=== PATIENT | female | born 1950 | race Caucasian/White ===

== ENCOUNTER → 2017-04-12 13:51 | Outpatient (CLI) | payer MEDICARE, BC, SELFPAY ==
[2017-04-12 16:06] LABS: Absolute Lymphocyte Count 1.06 X10^3/ul (0.83-4.51); Absolute Neutrophil Count 2.4 X10^3/uL (2.0-7.7); Basophil# 0.04 X10^3/uL; Eosinophil# 0.05 X10^3/uL; Eosinophils% 1.2 % (0-5); Hematocrit 45.3 % (37-47); Hemoglobin 14.7 g/dl (12.0-15.0); Lymphocyte # 1.06 X10^3/ul (4.0); Lymphocyte % 26.4 % (19-41); Mean Corp Hgb Conc 32.5 g/gl (32-36); Mean Corpuscular Hgb 28.2 pg (27.0-32.0); Mean Corpuscular Volume 86.8 fL (81-99); Mean Platelet Vol. 11.8 fl (6.2-12.0); Monocyte% 12.4 % (0-10); Neutrophil # 2.37 X10^3/uL (2.7-7.7); Platelet Count 231 K/mm3 (150-450); Red Blood Count 5.22 M/mm3 (4.2-5.4)
[2017-04-12 16:16] LABS: AST(SGOT) 23 U/L (15-37); Alanine Aminotransfer ALT/SGPT 22 U/L (13-56); Albumin, Serum 3.6 g/dL (3.2-5.0); Alkaline Phosphatase 63 U/L (45-117); Anion Gap 8 (5-15); BUN 14 mg/dL (7-18); BUN/Creat Ratio 13.7 RATIO (10-20); Calcium,Total 8.8 mg/dL (8.5-10.1); Chloride 106 mmol/L (98-107); Creatinine, Serum 1.02 mg/dL (0.55-1.02); EST Glomerular Filtration Rate 57 mL/min (>60); Est Glom Filt Rate - Afr Amer 69 mL/min (>60); Globulin 3.7 g/dL (2.2-4.2); Glucose 113 mg/dL (74-106); Potassium 4.2 mmol/L (3.5-5.1); Protein, Total 7.3 g/dL (6.4-8.2); Sodium Level 138 mmol/L (136-145)
[2017-04-12 16:23] LABS: POSITIVE COUNT NO; POSITIVE DIFFERENTIAL NO; POSITIVE MORPHOLOGY NO
== END ==
PROVIDERS: Family Provider Family Medicine; PCP Family Medicine; Visit Provider Internal Medicine Rheumatology
DX: M06.4 Inflammatory polyarthropathy (principal); M21.40 Flat foot [pes planus] (acquired), unspecified foot; M17.0 Bilateral primary osteoarthritis of knee; M48.061 Spinal stenosis, lumbar region without neurogenic claudication; E05.20 Thyrotoxicosis with toxic multinodular goiter without thyrotoxic crisis or storm; I12.9 Hypertensive chronic kidney disease with stage 1 through stage 4 chronic kidney disease, or unspecified chronic kidney disease; N18.9 Chronic kidney disease, unspecified; Z79.899 Other long term (current) drug therapy
CPT/HCPCS: 36415; 80053; 85025

== ENCOUNTER → 2017-07-10 10:56 | Outpatient (CLI) | payer MEDICARE, BC, SELFPAY ==
[2017-07-10 12:06] LABS: Absolute Lymphocyte Count 1.26 X10^3/ul (0.83-4.51); Absolute Neutrophil Count 2.1 X10^3/uL (2.0-7.7); Basophil# 0.07 X10^3/uL; Basophil% 1.8 % (0-1); Eosinophil# 0.07 X10^3/uL; Eosinophils% 1.8 % (0-5); Hematocrit 44.6 % (37-47); Hemoglobin 14.4 g/dl (12.0-15.0); Lymphocyte # 1.26 X10^3/ul (4.0); Lymphocyte % 32.7 % (19-41); Mean Corp Hgb Conc 32.3 g/gl (32-36); Mean Corpuscular Volume 86.8 fL (81-99); Mean Platelet Vol. 11.1 fl (6.2-12.0); Monocyte# 0.38 X10^3/uL; Monocyte% 9.9 % (0-10); Neutrophil # 2.07 X10^3/uL (2.7-7.7); Neutrophil % 53.8 % (47-70); Platelet Count 246 K/mm3 (150-450); RBC Distribution Width CV 14.3 % (11.6-14.6); RBC Distribution Width SD 45.4 fl (35.1-43.9); Red Blood Count 5.14 M/mm3 (4.2-5.4); White Blood Count 3.9 K/mm3 (4.4-11.0)
[2017-07-10 12:10] LABS: POSITIVE COUNT NO; POSITIVE DIFFERENTIAL NO; POSITIVE MORPHOLOGY NO
[2017-07-10 13:21] LABS: ALB/GLOB Ratio 0.9 RATIO (0.9-2.4); AST(SGOT) 20 U/L (15-37); Alanine Aminotransfer ALT/SGPT 18 U/L (13-56); Albumin, Serum 3.4 g/dL (3.2-5.0); Alkaline Phosphatase 63 U/L (45-117); Anion Gap 7 (5-15); BUN 18 mg/dL (7-18); BUN/Creat Ratio 14.8 RATIO (10-20); Calcium,Total 8.7 mg/dL (8.5-10.1); Chloride 108 mmol/L (98-107); Creatinine, Serum 1.22 mg/dL (0.55-1.02); EST Glomerular Filtration Rate 47 mL/min (>60); Est Glom Filt Rate - Afr Amer 56 mL/min (>60); Globulin 3.7 g/dL (2.2-4.2); Glucose 157 mg/dL (74-106); Protein, Total 7.1 g/dL (6.4-8.2); Sodium Level 141 mmol/L (136-145)
== END ==
PROVIDERS: Family Provider Family Medicine; PCP Family Medicine; Visit Provider Internal Medicine Rheumatology
DX: M06.4 Inflammatory polyarthropathy (principal); M21.40 Flat foot [pes planus] (acquired), unspecified foot; M17.0 Bilateral primary osteoarthritis of knee; N18.9 Chronic kidney disease, unspecified; M48.061 Spinal stenosis, lumbar region without neurogenic claudication; Z79.899 Other long term (current) drug therapy
CPT/HCPCS: 36415; 80053; 85025

== ENCOUNTER → 2017-07-25 13:46 | Outpatient (CLI) | payer MEDICARE, BC, SELFPAY ==
[2017-07-25 15:34] LABS: Anion Gap 5 (5-15); BUN 15 mg/dL (7-18); BUN/Creat Ratio 14.6 RATIO (10-20); Calcium,Total 8.7 mg/dL (8.5-10.1); Chloride 106 mmol/L (98-107); Creatinine, Serum 1.03 mg/dL (0.55-1.02); EST Glomerular Filtration Rate 57 mL/min (>60); Est Glom Filt Rate - Afr Amer 68 mL/min (>60); Glucose 101 mg/dL (74-106); Potassium 4.3 mmol/L (3.5-5.1); Sodium Level 138 mmol/L (136-145)
[2017-07-25 15:47] LABS: Microalbumin,Random Urine 21.5 mg/L (NO RANGE EST.)
== END ==
PROVIDERS: Family Provider Family Medicine; PCP Family Medicine; Visit Provider Internal Medicine Nephrology
DX: N18.3 Chronic kidney disease, stage 3 (moderate) (principal)
CPT/HCPCS: 36415; 80048; 82043; 82570

== ENCOUNTER → 2017-09-23 14:12 | Outpatient (CLI) | payer MEDICARE, SELFPAY ==
[2017-09-23 15:17] LABS: Absolute Lymphocyte Count 1.24 X10^3/ul (0.83-4.51); Absolute Neutrophil Count 2.3 X10^3/uL (2.0-7.7); Basophil# 0.05 X10^3/uL; Basophil% 1.2 % (0-1); Eosinophil# 0.05 X10^3/uL; Eosinophils% 1.2 % (0-5); Hematocrit 43.9 % (37-47); Hemoglobin 14.3 g/dl (12.0-15.0); Lymphocyte # 1.24 X10^3/ul (4.0); Lymphocyte % 29.7 % (19-41); Mean Corp Hgb Conc 32.6 g/gl (32-36); Mean Corpuscular Hgb 28.4 pg (27.0-32.0); Mean Corpuscular Volume 87.3 fL (81-99); Mean Platelet Vol. 11.4 fl (6.2-12.0); Monocyte# 0.54 X10^3/uL; Monocyte% 12.9 % (0-10); Neutrophil # 2.29 X10^3/uL (2.7-7.7); Neutrophil % 54.8 % (47-70); POSITIVE COUNT NO; POSITIVE DIFFERENTIAL NO; POSITIVE MORPHOLOGY NO; Platelet Count 241 K/mm3 (150-450); RBC Distribution Width CV 14.4 % (11.6-14.6); RBC Distribution Width SD 45.5 fl (35.1-43.9); Red Blood Count 5.03 M/mm3 (4.2-5.4); White Blood Count 4.2 K/mm3 (4.4-11.0)
[2017-09-23 15:30] LABS: ALB/GLOB Ratio 0.9 RATIO (0.9-2.4); AST(SGOT) 20 U/L (15-37); Alanine Aminotransfer ALT/SGPT 23 U/L (13-56); Albumin, Serum 3.5 g/dL (3.2-5.0); Alkaline Phosphatase 63 U/L (45-117); Anion Gap 9 (5-15); BUN 15 mg/dL (7-18); BUN/Creat Ratio 14.2 RATIO (10-20); Calcium,Total 8.9 mg/dL (8.5-10.1); Chloride 108 mmol/L (98-107); Creatinine, Serum 1.06 mg/dL (0.55-1.02); EST Glomerular Filtration Rate 55 mL/min (>60); Est Glom Filt Rate - Afr Amer 66 mL/min (>60); Globulin 3.8 g/dL (2.2-4.2); Glucose 110 mg/dL (74-106); Potassium 4.3 mmol/L (3.5-5.1); Protein, Total 7.3 g/dL (6.4-8.2); Sodium Level 142 mmol/L (136-145)
== END ==
PROVIDERS: Family Provider Family Medicine; PCP Family Medicine; Visit Provider Internal Medicine Rheumatology
DX: M06.4 Inflammatory polyarthropathy (principal); M21.40 Flat foot [pes planus] (acquired), unspecified foot; M17.0 Bilateral primary osteoarthritis of knee; Z79.899 Other long term (current) drug therapy
CPT/HCPCS: 36415; 80053; 85025

== ENCOUNTER → 2017-12-27 14:59 | Outpatient (CLI) | payer MEDICARE, BC, SELFPAY ==
[2017-12-27 17:48] LABS: ALB/GLOB Ratio 0.9 RATIO (0.9-2.4); AST(SGOT) 22 U/L (15-37); Alanine Aminotransfer ALT/SGPT 24 U/L (13-56); Albumin, Serum 3.6 g/dL (3.2-5.0); Alkaline Phosphatase 67 U/L (45-117); Anion Gap 10 (5-15); BUN 16 mg/dL (7-18); BUN/Creat Ratio 14.4 RATIO (10-20); Calcium,Total 8.6 mg/dL (8.5-10.1); Chloride 106 mmol/L (98-107); Creatinine, Serum 1.11 mg/dL (0.55-1.02); EST Glomerular Filtration Rate 52 mL/min (>60); Est Glom Filt Rate - Afr Amer 63 mL/min (>60); Glucose 103 mg/dL (74-106); Potassium 4.2 mmol/L (3.5-5.1); Protein, Total 7.6 g/dL (6.4-8.2); Sodium Level 140 mmol/L (136-145)
[2017-12-27 18:19] LABS: Absolute Lymphocyte Count 1.37 X10^3/ul (0.83-4.51); Absolute Neutrophil Count 2.5 X10^3/uL (2.0-7.7); Basophil# 0.02 X10^3/uL; Basophil% 0.4 % (0-1); Eosinophil# 0.06 X10^3/uL; Eosinophils% 1.3 % (0-5); Hematocrit 47.2 % (37-47); Hemoglobin 14.7 g/dl (12.0-15.0); Lymphocyte # 1.37 X10^3/ul (4.0); Lymphocyte % 30.7 % (19-41); Mean Corp Hgb Conc 31.1 g/gl (32-36); Mean Corpuscular Hgb 27.9 pg (27.0-32.0); Mean Corpuscular Volume 89.7 fL (81-99); Monocyte# 0.49 X10^3/uL; Neutrophil # 2.52 X10^3/uL (2.7-7.7); Neutrophil % 56.6 % (47-70); Platelet Count 274 K/mm3 (150-450); RBC Distribution Width SD 45.5 fl (35.1-43.9); Red Blood Count 5.26 M/mm3 (4.2-5.4); White Blood Count 4.5 K/mm3 (4.4-11.0)
[2017-12-27 18:33] LABS: POSITIVE COUNT NO; POSITIVE DIFFERENTIAL NO; POSITIVE MORPHOLOGY NO
== END ==
PROVIDERS: Family Provider Family Medicine; PCP Family Medicine; Referring Provider Internal Medicine Rheumatology; Visit Provider Internal Medicine Rheumatology
DX: M06.4 Inflammatory polyarthropathy (principal); M21.40 Flat foot [pes planus] (acquired), unspecified foot; M17.0 Bilateral primary osteoarthritis of knee; N18.9 Chronic kidney disease, unspecified; Z79.899 Other long term (current) drug therapy
CPT/HCPCS: 36415; 80053; 85025

== ENCOUNTER → 2018-02-07 12:55 | Outpatient (CLI) | payer MEDICARE, BC, SELFPAY ==
[2018-02-07 14:05] LABS: Absolute Neutrophil Count 2.2 X10^3/uL (2.0-7.7); Basophil# 0.06 X10^3/uL; Basophil% 1.5 % (0-1); Eosinophil# 0.12 X10^3/uL; Hematocrit 45.1 % (37-47); Hemoglobin 14.3 g/dl (12.0-15.0); Lymphocyte % 29.9 % (19-41); Mean Corp Hgb Conc 31.7 g/gl (32-36); Mean Corpuscular Hgb 27.6 pg (27.0-32.0); Mean Corpuscular Volume 86.9 fL (81-99); Mean Platelet Vol. 10.9 fl (6.2-12.0); Monocyte# 0.38 X10^3/uL; Monocyte% 9.5 % (0-10); Neutrophil # 2.24 X10^3/uL (2.7-7.7); Neutrophil % 55.9 % (47-70); Platelet Count 242 K/mm3 (150-450); RBC Distribution Width CV 13.9 % (11.6-14.6); RBC Distribution Width SD 44.5 fl (35.1-43.9); Red Blood Count 5.19 M/mm3 (4.2-5.4)
[2018-02-07 14:08] LABS: POSITIVE COUNT NO; POSITIVE DIFFERENTIAL NO; POSITIVE MORPHOLOGY NO
[2018-02-07 14:21] LABS: Albumin, Serum 3.4 g/dL (3.2-5.0); BUN 17 mg/dL (7-18); BUN/Creat Ratio 16.5 RATIO (10-20); Calcium,Total 8.3 mg/dL (8.5-10.1); Chloride 108 mmol/L (98-107); Creatinine, Serum 1.03 mg/dL (0.55-1.02); EST Glomerular Filtration Rate 57 mL/min (>60); Est Glom Filt Rate - Afr Amer 68 mL/min (>60); Glucose 154 mg/dL (74-106); Phosphorus 2.5 mg/dL (2.5-4.9); Potassium 3.9 mmol/L (3.5-5.1); Sodium Level 139 mmol/L (136-145)
[2018-02-07 14:31] LABS: Vitamin D,25 Hydroxy 55.4 ng/mL (29.95-100.01)
[2018-02-07 14:41] LABS: Protein, Urine (Random) 68.8 mg/dL (<11.9); Protein:Creat Ratio 313 mg/g CRE (0-200)
[2018-02-07 15:04] LABS: PTHIN 269.3 pg/mL (18.4-80.1)
== END ==
PROVIDERS: Family Provider Family Medicine; PCP Family Medicine; Referring Provider Internal Medicine Nephrology; Visit Provider Internal Medicine Nephrology
DX: N18.3 Chronic kidney disease, stage 3 (moderate) (principal); D63.1 Anemia in chronic kidney disease; E55.9 Vitamin D deficiency, unspecified
CPT/HCPCS: 36415; 80069; 82306; 82570; 83970; 84156; 85025

== ENCOUNTER → 2018-03-25 12:11 | Outpatient (CLI) | payer MEDICARE, BC, SELFPAY ==
[2018-03-25 13:48] LABS: Absolute Lymphocyte Count 1.07 X10^3/ul (0.83-4.51); Absolute Neutrophil Count 2.8 X10^3/uL (2.0-7.7); Basophil# 0.02 X10^3/uL; Basophil% 0.5 % (0-1); Eosinophils% 2.3 % (0-5); Hematocrit 44.9 % (37-47); Lymphocyte # 1.07 X10^3/ul (4.0); Lymphocyte % 24.8 % (19-41); Mean Corp Hgb Conc 31.2 g/gl (32-36); Mean Corpuscular Hgb 27.5 pg (27.0-32.0); Mean Corpuscular Volume 88.2 fL (81-99); Monocyte# 0.35 X10^3/uL; Monocyte% 8.1 % (0-10); Neutrophil # 2.76 X10^3/uL (2.7-7.7); Neutrophil % 64.1 % (47-70); POSITIVE COUNT NO; POSITIVE DIFFERENTIAL NO; POSITIVE MORPHOLOGY NO; Platelet Count 210 K/mm3 (150-450); RBC Distribution Width CV 14.2 % (11.6-14.6); RBC Distribution Width SD 46.1 fl (35.1-43.9); Red Blood Count 5.09 M/mm3 (4.2-5.4); White Blood Count 4.3 K/mm3 (4.4-11.0)
[2018-03-25 14:16] LABS: ALB/GLOB Ratio 0.9 RATIO (0.9-2.4); AST(SGOT) 21 U/L (15-37); Alanine Aminotransfer ALT/SGPT 20 U/L (13-56); Albumin, Serum 3.3 g/dL (3.2-5.0); Alkaline Phosphatase 60 U/L (45-117); Anion Gap 6 (5-15); BUN 15 mg/dL (7-18); BUN/Creat Ratio 14.9 RATIO (10-20); Calcium,Total 8.2 mg/dL (8.5-10.1); Chloride 111 mmol/L (98-107); Creatinine, Serum 1.01 mg/dL (0.55-1.02); EST Glomerular Filtration Rate 58 mL/min (>60); Est Glom Filt Rate - Afr Amer 70 mL/min (>60); Globulin 3.7 g/dL (2.2-4.2); Glucose 140 mg/dL (74-106); Potassium 4.2 mmol/L (3.5-5.1); Sodium Level 141 mmol/L (136-145); T4 Free Direct 1.28 ng/dL (0.76-1.46); Thyroid Stim Hormone (TSH) 0.69 uIU/mL (0.358-3.74)
== END ==
PROVIDERS: Family Provider Family Medicine; PCP Family Medicine; Referring Provider Internal Medicine Rheumatology; Visit Provider Internal Medicine Rheumatology
DX: E03.9 Hypothyroidism, unspecified (principal); M06.4 Inflammatory polyarthropathy; M21.40 Flat foot [pes planus] (acquired), unspecified foot; M17.0 Bilateral primary osteoarthritis of knee; E05.20 Thyrotoxicosis with toxic multinodular goiter without thyrotoxic crisis or storm; N25.81 Secondary hyperparathyroidism of renal origin; E11.9 Type 2 diabetes mellitus without complications; I12.9 Hypertensive chronic kidney disease with stage 1 through stage 4 chronic kidney disease, or unspecified chronic kidney disease; N18.9 Chronic kidney disease, unspecified; Z79.899 Other long term (current) drug therapy
CPT/HCPCS: 36415; 80053; 84439; 84443; 85025

== ENCOUNTER → 2018-06-20 13:15 | Outpatient (CLI) | payer MEDICARE, BC, SELFPAY ==
[2018-06-20 15:41] LABS: Absolute Lymphocyte Count 1.09 X10^3/ul (0.83-4.51); Absolute Neutrophil Count 1.8 X10^3/uL (2.0-7.7); Basophil# 0.04 X10^3/uL; Basophil% 1.2 % (0-1); Eosinophil# 0.06 X10^3/uL; Eosinophils% 1.8 % (0-5); Hematocrit 44.2 % (37-47); Hemoglobin 14.1 g/dl (12.0-15.0); Lymphocyte # 1.09 X10^3/ul (4.0); Lymphocyte % 32.1 % (19-41); Mean Corp Hgb Conc 31.9 g/gl (32-36); Mean Corpuscular Hgb 27.5 pg (27.0-32.0); Mean Corpuscular Volume 86.3 fL (81-99); Mean Platelet Vol. 11.1 fl (6.2-12.0); Monocyte# 0.45 X10^3/uL; Monocyte% 13.2 % (0-10); Neutrophil # 1.75 X10^3/uL (2.7-7.7); Neutrophil % 51.4 % (47-70); Platelet Count 236 K/mm3 (150-450); RBC Distribution Width CV 14.1 % (11.6-14.6); RBC Distribution Width SD 44.3 fl (35.1-43.9); Red Blood Count 5.12 M/mm3 (4.2-5.4); White Blood Count 3.4 K/mm3 (4.4-11.0)
[2018-06-20 15:44] LABS: POSITIVE COUNT NO; POSITIVE DIFFERENTIAL NO; POSITIVE MORPHOLOGY NO
[2018-06-20 15:49] LABS: ALB/GLOB Ratio 0.9 RATIO (0.9-2.4); AST(SGOT) 23 U/L (15-37); Alanine Aminotransfer ALT/SGPT 20 U/L (13-56); Albumin, Serum 3.4 g/dL (3.2-5.0); Alkaline Phosphatase 65 U/L (45-117); Anion Gap 1 (5-15); BUN 14 mg/dL (7-18); BUN/Creat Ratio 11.9 RATIO (10-20); Calcium,Total 8.3 mg/dL (8.5-10.1); Chloride 110 mmol/L (98-107); Creatinine, Serum 1.18 mg/dL (0.55-1.02); EST Glomerular Filtration Rate 48 mL/min (>60); Est Glom Filt Rate - Afr Amer 58 mL/min (>60); Globulin 3.6 g/dL (2.2-4.2); Glucose 146 mg/dL (74-106); Potassium 4.3 mmol/L (3.5-5.1); Sodium Level 140 mmol/L (136-145)
== END ==
PROVIDERS: Family Provider Family Medicine; PCP Family Medicine; Referring Provider Internal Medicine Rheumatology; Visit Provider Internal Medicine Rheumatology
DX: M06.4 Inflammatory polyarthropathy (principal); M21.40 Flat foot [pes planus] (acquired), unspecified foot; M17.0 Bilateral primary osteoarthritis of knee; M18.9 Osteoarthritis of first carpometacarpal joint, unspecified; M48.061 Spinal stenosis, lumbar region without neurogenic claudication; Z79.899 Other long term (current) drug therapy
CPT/HCPCS: 36415; 80053; 85025

== ENCOUNTER → 2018-08-29 | Outpatient (CLI) | payer MEDICARE, BC, SELFPAY ==
[2018-08-29 15:36] LABS: Absolute Lymphocyte Count 1.05 X10^3/uL (0.83-4.51); Absolute Neutrophil Count 2.1 X10^3/uL (2.0-7.7); Basophil# 0.03 X10^3/uL; Basophil% 0.8 % (0-1); Eosinophil# 0.06 X10^3/uL; Eosinophils% 1.6 % (0-5); Hematocrit 45.4 % (37-47); Hemoglobin 14.5 g/dL (12.0-15.0); Lymphocyte # 1.05 X10^3/ul (4.0); Lymphocyte % 28.2 % (19-41); Mean Corp Hgb Conc 31.9 g/dL (32-36); Mean Corpuscular Hgb 27.7 pg (27.0-32.0); Mean Corpuscular Volume 86.6 fL (81-99); Mean Platelet Vol. 10.8 fl (6.2-12.0); Monocyte# 0.46 X10^3/uL; Monocyte% 12.4 % (0-10); NRBC Flagged by Analyzer 0 % (0-5); Neutrophil # 2.11 X10^3/uL (2.7-7.7); Neutrophil % 56.7 % (47-70); Platelet Count 244 K/mm3 (150-450); RBC Distribution Width CV 13.4 % (11.6-14.6); RBC Distribution Width SD 42.6 fl (35.1-43.9); Red Blood Count 5.24 M/mm3 (4.2-5.4); White Blood Count 3.7 K/mm3 (4.4-11.0)
[2018-08-29 15:53] LABS: ALB/GLOB Ratio 0.9 RATIO (0.9-2.4); AST(SGOT) 17 U/L (15-37); Alanine Aminotransfer ALT/SGPT 20 U/L (13-56); Albumin, Serum 3.4 g/dL (3.2-5.0); Alkaline Phosphatase 59 U/L (45-117); Anion Gap 6 (5-15); BUN 12 mg/dL (7-18); BUN/Creat Ratio 12.1 RATIO (10-20); Calcium,Total 8.7 mg/dL (8.5-10.1); Chloride 110 mmol/L (98-107); Creatinine, Serum 0.99 mg/dL (0.55-1.02); EST Glomerular Filtration Rate 59 mL/min (>60); Est Glom Filt Rate - Afr Amer 72 mL/min (>60); Globulin 3.7 g/dL (2.2-4.2); Glucose 127 mg/dL (74-106); Phosphorus 2.4 mg/dL (2.5-4.9); Potassium 3.9 mmol/L (3.5-5.1); Protein, Total 7.1 g/dL (6.4-8.2); Sodium Level 140 mmol/L (136-145)
[2018-08-29 15:56] LABS: Vitamin D,25 Hydroxy 49.1 ng/mL (29.95-100.01)
[2018-08-29 16:02] LABS: PTHIN 178.7 pg/mL (18.4-80.1)
[2018-08-29 16:03] LABS: Protein, Urine (Random) 99.8 mg/dL (<11.9); Protein:Creat Ratio 254 mg/g CRE (0-200)
== END | disposition home or self-care (01) ==
LOC: MTLAB 13:46
PROVIDERS: Family Provider Family Medicine; PCP Family Medicine; Referring Provider Internal Medicine Rheumatology; Visit Provider Internal Medicine Rheumatology
DX: M06.4 Inflammatory polyarthropathy (principal); M21.40 Flat foot [pes planus] (acquired), unspecified foot; M17.0 Bilateral primary osteoarthritis of knee; M48.062 Spinal stenosis, lumbar region with neurogenic claudication; N18.3 Chronic kidney disease, stage 3 (moderate); D63.1 Anemia in chronic kidney disease; E55.9 Vitamin D deficiency, unspecified; Z79.899 Other long term (current) drug therapy
CPT/HCPCS: 36415; 80053; 82306; 82570; 83970; 84100; 84156; 85025

== ENCOUNTER → 2018-09-29 | Outpatient (CLI) | payer MEDICARE, BC, SELFPAY ==
[2018-09-29 15:41] LABS: T4 Free Direct 1.51 ng/dL (0.76-1.46); Thyroid Stim Hormone (TSH) 0.89 uIU/mL (0.358-3.74)
[2018-10-02 14:09] LABS: Thyroid Stim Immunoglob <0.10 IU/L (0.00-0.55)
== END | disposition home or self-care (01) ==
LOC: LAB.FUTURE 10:25
PROVIDERS: Family Provider Family Medicine; PCP Family Medicine; Visit Provider Family Medicine
DX: E05.90 Thyrotoxicosis, unspecified without thyrotoxic crisis or storm (principal); H05.20 Unspecified exophthalmos
CPT/HCPCS: 36415; 84439; 84443; 84445

== ENCOUNTER → 2018-12-02 | Outpatient (CLI) | payer MEDICARE, BC, SELFPAY ==
[2018-12-02 13:51] LABS: Absolute Lymphocyte Count 1.39 X10^3/uL (0.83-4.51); Absolute Neutrophil Count 2.5 X10^3/uL (2.0-7.7); Basophil# 0.05 X10^3/uL; Basophil% 1.1 % (0-1); Eosinophil# 0.07 X10^3/uL; Eosinophils% 1.5 % (0-5); Hematocrit 45.4 % (37-47); Hemoglobin 14.2 g/dL (12.0-15.0); Lymphocyte # 1.39 X10^3/ul (4.0); Lymphocyte % 30.2 % (19-41); Mean Corp Hgb Conc 31.3 g/dL (32-36); Mean Corpuscular Volume 89.4 fL (81-99); Mean Platelet Vol. 10.8 fl (6.2-12.0); Monocyte# 0.58 X10^3/uL; Monocyte% 12.6 % (0-10); NRBC Flagged by Analyzer 0 % (0-5); Neutrophil % 54.2 % (47-70); Platelet Count 266 K/mm3 (150-450); RBC Distribution Width CV 13.4 % (11.6-14.6); RBC Distribution Width SD 44.2 fl (35.1-43.9); Red Blood Count 5.08 M/mm3 (4.2-5.4); White Blood Count 4.6 K/mm3 (4.4-11.0)
[2018-12-02 13:58] LABS: ALB/GLOB Ratio 0.9 RATIO (0.9-2.4); AST(SGOT) 23 U/L (15-37); Alanine Aminotransfer ALT/SGPT 22 U/L (13-56); Albumin, Serum 3.3 g/dL (3.2-5.0); Alkaline Phosphatase 63 U/L (45-117); Anion Gap 6 (5-15); BUN 16 mg/dL (7-18); BUN/Creat Ratio 14.3 RATIO (10-20); Calcium,Total 8.3 mg/dL (8.5-10.1); Chloride 108 mmol/L (98-107); Creatinine, Serum 1.12 mg/dL (0.55-1.02); EST Glomerular Filtration Rate 51 mL/min (>60); Est Glom Filt Rate - Afr Amer 62 mL/min (>60); Globulin 3.7 g/dL (2.2-4.2); Glucose 130 mg/dL (74-106); Potassium 4.1 mmol/L (3.5-5.1); Sodium Level 140 mmol/L (136-145)
== END | disposition home or self-care (01) ==
LOC: MTLAB 11:56
PROVIDERS: Family Provider Family Medicine; PCP Family Medicine; Referring Provider Internal Medicine Rheumatology; Visit Provider Internal Medicine Rheumatology
DX: M06.4 Inflammatory polyarthropathy (principal); M21.40 Flat foot [pes planus] (acquired), unspecified foot; M17.0 Bilateral primary osteoarthritis of knee; N18.9 Chronic kidney disease, unspecified; Z79.899 Other long term (current) drug therapy
CPT/HCPCS: 36415; 80053; 85025

== ENCOUNTER → 2019-03-17 | Outpatient (CLI) | payer MEDICARE, BC, SELFPAY ==
[2019-03-17 15:22] LABS: Absolute Lymphocyte Count 1.05 X10^3/uL (0.83-4.51); Absolute Neutrophil Count 2.7 X10^3/uL (2.0-7.7); Basophil# 0.05 X10^3/uL; Basophil% 1.2 % (0-1); Eosinophil# 0.07 X10^3/uL; Eosinophils% 1.6 % (0-5); Hematocrit 47.1 % (37-47); Hemoglobin 14.7 g/dL (12.0-15.0); Lymphocyte # 1.05 X10^3/ul (4.0); Lymphocyte % 24.2 % (19-41); Mean Corp Hgb Conc 31.2 g/dL (32-36); Mean Corpuscular Hgb 27.6 pg (27.0-32.0); Mean Corpuscular Volume 88.5 fL (81-99); Monocyte% 11.5 % (0-10); NRBC Flagged by Analyzer 0 % (0-5); Neutrophil # 2.66 X10^3/uL (2.7-7.7); Neutrophil % 61.3 % (47-70); Platelet Count 253 K/mm3 (150-450); RBC Distribution Width CV 13.4 % (11.6-14.6); RBC Distribution Width SD 43.6 fl (35.1-43.9); Red Blood Count 5.32 M/mm3 (4.2-5.4); White Blood Count 4.3 K/mm3 (4.4-11.0)
[2019-03-17 15:49] LABS: ALB/GLOB Ratio 0.9 RATIO (0.9-2.4); AST(SGOT) 19 U/L (15-37); Alanine Aminotransfer ALT/SGPT 20 U/L (13-56); Albumin, Serum 3.4 g/dL (3.2-5.0); Alkaline Phosphatase 60 U/L (45-117); Anion Gap 4 (5-15); BUN 15 mg/dL (7-18); BUN/Creat Ratio 12.9 RATIO (10-20); Calcium,Total 9.1 mg/dL (8.5-10.1); Chloride 109 mmol/L (98-107); Creatinine, Serum 1.16 mg/dL (0.55-1.02); EST Glomerular Filtration Rate 49 mL/min (>60); Est Glom Filt Rate - Afr Amer 59 mL/min (>60); Globulin 3.7 g/dL (2.2-4.2); Glucose 120 mg/dL (74-106); Potassium 4.5 mmol/L (3.5-5.1); Protein, Total 7.1 g/dL (6.4-8.2); Sodium Level 140 mmol/L (136-145); T4 Free Direct 1.34 ng/dL (0.76-1.46); Thyroid Stim Hormone (TSH) 1.16 uIU/mL (0.358-3.74)
== END | disposition home or self-care (01) ==
LOC: MTLAB 13:30
PROVIDERS: PCP Family Medicine; Referring Provider Internal Medicine Rheumatology; Visit Provider Internal Medicine Rheumatology
DX: M06.4 Inflammatory polyarthropathy (principal); M21.40 Flat foot [pes planus] (acquired), unspecified foot; M17.0 Bilateral primary osteoarthritis of knee; I12.9 Hypertensive chronic kidney disease with stage 1 through stage 4 chronic kidney disease, or unspecified chronic kidney disease; N18.9 Chronic kidney disease, unspecified; E05.20 Thyrotoxicosis with toxic multinodular goiter without thyrotoxic crisis or storm; N25.81 Secondary hyperparathyroidism of renal origin; E11.22 Type 2 diabetes mellitus with diabetic chronic kidney disease; M48.061 Spinal stenosis, lumbar region without neurogenic claudication; Z79.899 Other long term (current) drug therapy
CPT/HCPCS: 36415; 80053; 84439; 84443; 85025

== ENCOUNTER → 2019-05-28 | Outpatient (CLI) | payer MEDICARE, BC, SELFPAY ==
[2019-05-28 12:21] LABS: Absolute Lymphocyte Count 1.15 X10^3/uL (0.83-4.51); Absolute Neutrophil Count 3.4 X10^3/uL (2.0-7.7); Basophil# 0.04 X10^3/uL; Basophil% 0.8 % (0-1); Eosinophils% 1.9 % (0-5); Hematocrit 45.2 % (37-47); Hemoglobin 14.1 g/dL (12.0-15.0); Lymphocyte # 1.15 X10^3/ul (4.0); Mean Corp Hgb Conc 31.2 g/dL (32-36); Mean Corpuscular Hgb 27.5 pg (27.0-32.0); Mean Corpuscular Volume 88.3 fL (81-99); Mean Platelet Vol. 10.8 fl (6.2-12.0); Monocyte# 0.55 X10^3/uL; Monocyte% 10.5 % (0-10); NRBC Flagged by Analyzer 0 % (0-5); Neutrophil # 3.36 X10^3/uL (2.7-7.7); Neutrophil % 64.4 % (47-70); Platelet Count 250 K/mm3 (150-450); RBC Distribution Width CV 13.7 % (11.6-14.6); RBC Distribution Width SD 44.4 fl (35.1-43.9); Red Blood Count 5.12 M/mm3 (4.2-5.4); White Blood Count 5.2 K/mm3 (4.4-11.0)
[2019-05-28 12:33] LABS: PTHIN 258.4 pg/mL (18.4-80.1)
[2019-05-28 12:35] LABS: ALB/GLOB Ratio 0.9 RATIO (0.9-2.4); AST(SGOT) 21 U/L (15-37); Alanine Aminotransfer ALT/SGPT 19 U/L (13-56); Albumin, Serum 3.4 g/dL (3.2-5.0); Alkaline Phosphatase 63 U/L (45-117); Anion Gap 8 (5-15); BUN 16 mg/dL (7-18); BUN/Creat Ratio 15.5 RATIO (10-20); Calcium,Total 8.6 mg/dL (8.5-10.1); Chloride 108 mmol/L (98-107); Creatinine, Serum 1.03 mg/dL (0.55-1.02); EST Glomerular Filtration Rate 56 mL/min (>60); Est Glom Filt Rate - Afr Amer 68 mL/min (>60); Globulin 3.8 g/dL (2.2-4.2); Glucose 112 mg/dL (74-106); Phosphorus 2.7 mg/dL (2.5-4.9); Potassium 4.2 mmol/L (3.5-5.1); Protein, Total 7.2 g/dL (6.4-8.2); Sodium Level 142 mmol/L (136-145)
[2019-05-28 12:36] LABS: Vitamin D,25 Hydroxy 59.5 ng/mL
[2019-05-28 12:44] LABS: Protein, Urine (Random) 108.6 mg/dL (<11.9); Protein:Creat Ratio 343 mg/g CRE (0-200)
== END | disposition home or self-care (01) ==
PROVIDERS: PCP Family Medicine; Referring Provider Internal Medicine Nephrology; Visit Provider Internal Medicine Nephrology
DX: E55.9 Vitamin D deficiency, unspecified (principal); N25.81 Secondary hyperparathyroidism of renal origin; M06.4 Inflammatory polyarthropathy; M21.40 Flat foot [pes planus] (acquired), unspecified foot; M17.0 Bilateral primary osteoarthritis of knee; N18.9 Chronic kidney disease, unspecified; M48.061 Spinal stenosis, lumbar region without neurogenic claudication; E05.20 Thyrotoxicosis with toxic multinodular goiter without thyrotoxic crisis or storm; I12.9 Hypertensive chronic kidney disease with stage 1 through stage 4 chronic kidney disease, or unspecified chronic kidney disease; E11.22 Type 2 diabetes mellitus with diabetic chronic kidney disease; N18.3 Chronic kidney disease, stage 3 (moderate); D63.1 Anemia in chronic kidney disease; Z79.899 Other long term (current) drug therapy
CPT/HCPCS: 36415; 80053; 82306; 82570; 83970; 84100; 84156; 85025

== ENCOUNTER → 2019-08-11 | Outpatient (CLI) | payer MEDICARE, BC, SELFPAY ==
--- NOTE | 2019-08-11 13:14 | BD_ITS ---
STUDY: DUAL ENERGY X-RAY ABSORPTIOMETRY / DXA REASON FOR EXAM: Female, 69 years old. 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 COMPARISON: None. FINDINGS: Lumbar Spine (L1-L4): g/cm2 (1.476) / T-score (2.3) / Z-score (4.0) Findings are suggestive of normal bone density with a low fracture risk. Left Femur Total: g/cm2 (0.903) / T-score (-0.8) / Z-score (0.7) Left Femoral Neck: g/cm2 (0.809) / T-score (-1.6) / Z-score (0.1) Right Femur Total: g/cm2 (0.823) / T-score (-1.5) / Z-score (0.0) Right Femoral Neck: g/cm2 (0.768) / T-score (-1.9) / Z-score (-0.2) BD/Dexa Bone Density Study IMPRESSION: The patient is considered osteopenic as outlined below according to World Fritz Organization (WHO) criteria with a moderate fracture risk. Reference Information: The T-score is the number of standard deviations above or below the standard which is normal for young adults at their peak bone mineral density. The World Health Organization (WHO) interprets the T-scores as follows: Above -1 Normal bone density Between -1 and -2.5 Osteopenia Equal to / or below -2.5 Osteoporosis As a practical clinical guideline, osteopenia may be graded as follows: Mild -1 through -1.5 Moderate -1.6 through -2.0 Severe -2.1 through -2.4 The Z-score is the number of standard deviations above or below age-matched controls. A Z-score of less than -1.5 would be considered abnormal. References: 1. NIH Osteoporosis and Related Bone Diseases http://www.osteo.org 2. International Society for Clinical Densitometry http://www.iscd.org 3. National Osteoporosis Foundation http://www.nof.org Electronically Signed: Brandon Sosa, at 7:34 EDT , Service support ,
== END | disposition home or self-care (01) ==
PROVIDERS: PCP Family Medicine; Referring Provider Family Medicine; Visit Provider Family Medicine
DX: M81.0 Age-related osteoporosis without current pathological fracture (principal); M06.9 Rheumatoid arthritis, unspecified; N25.81 Secondary hyperparathyroidism of renal origin; E03.9 Hypothyroidism, unspecified; Z79.899 Other long term (current) drug therapy
CPT/HCPCS: 77080

== ENCOUNTER → 2019-08-28 | Outpatient (CLI) | payer MEDICARE, BC, SELFPAY ==
[2019-08-28 14:58] LABS: Absolute Lymphocyte Count 1.23 X10^3/uL (0.83-4.51); Absolute Neutrophil Count 2.2 X10^3/uL (2.0-7.7); Basophil# 0.03 X10^3/uL; Basophil% 0.8 % (0-1); Eosinophil# 0.07 X10^3/uL; Eosinophils% 1.8 % (0-5); Hematocrit 43.6 % (37-47); Hemoglobin 13.8 g/dL (12.0-15.0); Lymphocyte # 1.23 X10^3/ul (4.0); Mean Corp Hgb Conc 31.7 g/dL (32-36); Mean Corpuscular Hgb 27.9 pg (27.0-32.0); Mean Corpuscular Volume 88.1 fL (81-99); Mean Platelet Vol. 10.9 fl (6.2-12.0); Monocyte% 10.1 % (0-10); NRBC Flagged by Analyzer 0 % (0-5); Neutrophil # 2.23 X10^3/uL (2.7-7.7); Platelet Count 234 K/mm3 (150-450); RBC Distribution Width CV 13.6 % (11.6-14.6); RBC Distribution Width SD 43.7 fl (35.1-43.9); Red Blood Count 4.95 M/mm3 (4.2-5.4)
[2019-08-28 16:22] LABS: ALB/GLOB Ratio 0.9 RATIO (0.9-2.4); AST(SGOT) 20 U/L (15-37); Alanine Aminotransfer ALT/SGPT 20 U/L (13-56); Albumin, Serum 3.3 g/dL (3.2-5.0); Alkaline Phosphatase 56 U/L (45-117); Anion Gap 4 (5-15); BUN 16 mg/dL (7-18); BUN/Creat Ratio 14.8 RATIO (10-20); Calcium,Total 8.6 mg/dL (8.5-10.1); Chloride 110 mmol/L (98-107); Creatinine, Serum 1.08 mg/dL (0.55-1.02); EST Glomerular Filtration Rate 53 mL/min (>60); Est Glom Filt Rate - Afr Amer 64 mL/min (>60); Globulin 3.7 g/dL (2.2-4.2); Glucose 116 mg/dL (74-106); Potassium 3.9 mmol/L (3.5-5.1); Sodium Level 140 mmol/L (136-145); T4 Free Direct 1.45 ng/dL (0.76-1.46); Thyroid Stim Hormone (TSH) 1.89 uIU/mL (0.358-3.74)
== END | disposition home or self-care (01) ==
LOC: BFHLAB 13:23
PROVIDERS: PCP Family Medicine; Visit Provider Internal Medicine Rheumatology
DX: E03.9 Hypothyroidism, unspecified (principal); M06.4 Inflammatory polyarthropathy; M21.40 Flat foot [pes planus] (acquired), unspecified foot; M17.0 Bilateral primary osteoarthritis of knee; N18.9 Chronic kidney disease, unspecified; M48.061 Spinal stenosis, lumbar region without neurogenic claudication; Z79.899 Other long term (current) drug therapy
CPT/HCPCS: 36415; 80053; 84439; 84443; 85025

== ENCOUNTER → 2019-12-04 | Outpatient (CLI) | payer MEDICARE, BC, SELFPAY ==
[2019-12-04 15:35] LABS: Absolute Lymphocyte Count 1.09 X10^3/uL (0.83-4.51); Absolute Neutrophil Count 2.6 X10^3/uL (2.0-7.7); Basophil# 0.05 X10^3/uL; Basophil% 1.2 % (0-1); Eosinophil# 0.12 X10^3/uL; Eosinophils% 2.8 % (0-5); Hematocrit 43.8 % (37-47); Hemoglobin 13.3 g/dL (12.0-15.0); Lymphocyte # 1.09 X10^3/ul (4.0); Lymphocyte % 25.4 % (19-41); Mean Corp Hgb Conc 30.4 g/dL (32-36); Mean Corpuscular Hgb 27.4 pg (27.0-32.0); Mean Corpuscular Volume 90.1 fL (81-99); Mean Platelet Vol. 11.4 fl (6.2-12.0); Monocyte# 0.43 X10^3/uL; NRBC Flagged by Analyzer 0 % (0-5); Neutrophil # 2.58 X10^3/uL (2.7-7.7); Neutrophil % 60.1 % (47-70); Platelet Count 251 K/mm3 (150-450); RBC Distribution Width CV 13.8 % (11.6-14.6); RBC Distribution Width SD 46.1 fl (35.1-43.9); Red Blood Count 4.86 M/mm3 (4.2-5.4); White Blood Count 4.3 K/mm3 (4.4-11.0)
[2019-12-04 15:57] LABS: ALB/GLOB Ratio 0.8 RATIO (0.9-2.4); AST(SGOT) 26 U/L (15-37); Alanine Aminotransfer ALT/SGPT 23 U/L (13-56); Albumin, Serum 3.2 g/dL (3.2-5.0); Alkaline Phosphatase 56 U/L (45-117); Anion Gap 4 (5-15); BUN 17 mg/dL (7-18); BUN/Creat Ratio 16.3 RATIO (10-20); Calcium,Total 8.3 mg/dL (8.5-10.1); Chloride 109 mmol/L (98-107); Creatinine, Serum 1.04 mg/dL (0.55-1.02); EST Glomerular Filtration Rate 56 mL/min (>60); Est Glom Filt Rate - Afr Amer 67 mL/min (>60); Globulin 3.8 g/dL (2.2-4.2); Glucose 125 mg/dL (74-106); Phosphorus 2.5 mg/dL (2.5-4.9); Sodium Level 140 mmol/L (136-145); Uric Acid 5.2 mg/dL (2.6-6.0)
[2019-12-04 16:18] LABS: Protein, Urine (Random) 88.6 mg/dL (<11.9); Protein:Creat Ratio 296 mg/g CRE (0-200)
[2019-12-07 17:28] LABS: PTHIN 182.3 pg/mL (18.4-80.1)
== END | disposition home or self-care (01) ==
PROVIDERS: PCP Family Medicine; Referring Provider Internal Medicine Rheumatology; Visit Provider Internal Medicine Rheumatology
DX: M06.4 Inflammatory polyarthropathy (principal); M21.40 Flat foot [pes planus] (acquired), unspecified foot; M17.0 Bilateral primary osteoarthritis of knee; N18.30 Chronic kidney disease, stage 3 unspecified; D63.1 Anemia in chronic kidney disease; N25.81 Secondary hyperparathyroidism of renal origin; M10.9 Gout, unspecified; E55.9 Vitamin D deficiency, unspecified; M48.061 Spinal stenosis, lumbar region without neurogenic claudication; Z79.899 Other long term (current) drug therapy
CPT/HCPCS: 36415; 80053; 82306; 82570; 83970; 84100; 84156; 84550; 85025

== ENCOUNTER → 2020-03-01 11:48 | Outpatient (CLI) | payer MEDICARE, BC, SELFPAY ==
[2020-03-01 15:33] LABS: ALB/GLOB Ratio 0.9 RATIO (0.9-2.4); AST(SGOT) 24 U/L (15-37); Alanine Aminotransfer ALT/SGPT 20 U/L (13-56); Albumin, Serum 3.3 g/dL (3.2-5.0); Alkaline Phosphatase 63 U/L (45-117); Anion Gap 4 (5-15); BUN 15 mg/dL (7-18); BUN/Creat Ratio 13.6 RATIO (10-20); Calcium,Total 8.4 mg/dL (8.5-10.1); Chloride 109 mmol/L (98-107); EST Glomerular Filtration Rate 52 mL/min (>60); Est Glom Filt Rate - Afr Amer 63 mL/min (>60); Globulin 3.8 g/dL (2.2-4.2); Glucose 98 mg/dL (74-106); Potassium 3.6 mmol/L (3.5-5.1); Protein, Total 7.1 g/dL (6.4-8.2); Sodium Level 141 mmol/L (136-145)
[2020-03-01 15:43] LABS: Absolute Lymphocyte Count 1.22 X10^3/uL (0.83-4.51); Basophil# 0.06 X10^3/uL; Basophil% 1.2 % (0-1); Hematocrit 45.7 % (37-47); Hemoglobin 13.9 g/dL (12.0-15.0); Lymphocyte # 1.22 X10^3/ul (4.0); Lymphocyte % 24.7 % (19-41); Mean Corp Hgb Conc 30.4 g/dL (32-36); Mean Corpuscular Volume 88.7 fL (81-99); Mean Platelet Vol. 11.2 fl (6.2-12.0); Monocyte# 0.54 X10^3/uL; Monocyte% 10.9 % (0-10); NRBC Flagged by Analyzer 0 % (0-5); Neutrophil # 3.01 X10^3/uL (2.7-7.7); Platelet Count 247 K/mm3 (150-450); RBC Distribution Width CV 13.3 % (11.6-14.6); RBC Distribution Width SD 43.8 fl (35.1-43.9); Red Blood Count 5.15 M/mm3 (4.2-5.4); White Blood Count 4.9 K/mm3 (4.4-11.0)
== END ==
PROVIDERS: PCP Family Medicine; Referring Provider Internal Medicine Rheumatology; Visit Provider Internal Medicine Rheumatology
DX: M06.4 Inflammatory polyarthropathy (principal); M21.40 Flat foot [pes planus] (acquired), unspecified foot; M17.0 Bilateral primary osteoarthritis of knee; M48.061 Spinal stenosis, lumbar region without neurogenic claudication; E05.20 Thyrotoxicosis with toxic multinodular goiter without thyrotoxic crisis or storm; N25.81 Secondary hyperparathyroidism of renal origin; E11.22 Type 2 diabetes mellitus with diabetic chronic kidney disease; I12.9 Hypertensive chronic kidney disease with stage 1 through stage 4 chronic kidney disease, or unspecified chronic kidney disease; N18.9 Chronic kidney disease, unspecified; Z79.899 Other long term (current) drug therapy
CPT/HCPCS: 36415; 80053; 85025

== ENCOUNTER → 2020-05-12 13:54 | Outpatient (CLI) | payer MEDICARE, BC, SELFPAY ==
[2020-05-12 15:05] LABS: Absolute Lymphocyte Count 1.04 X10^3/uL (0.83-4.51); Absolute Neutrophil Count 2.6 X10^3/uL (2.0-7.7); Basophil# 0.07 X10^3/uL; Basophil% 1.6 % (0-1); Eosinophil# 0.08 X10^3/uL; Eosinophils% 1.9 % (0-5); Hematocrit 44.6 % (37-47); Hemoglobin 13.6 g/dL (12.0-15.0); Lymphocyte # 1.04 X10^3/ul (4.0); Lymphocyte % 24.3 % (19-41); Mean Corp Hgb Conc 30.5 g/dL (32-36); Mean Corpuscular Hgb 27.1 pg (27.0-32.0); Mean Corpuscular Volume 88.8 fL (81-99); Mean Platelet Vol. 10.8 fl (6.2-12.0); Monocyte# 0.46 X10^3/uL; Monocyte% 10.7 % (0-10); NRBC Flagged by Analyzer 0 % (0-5); Neutrophil # 2.62 X10^3/uL (2.7-7.7); Neutrophil % 61.3 % (47-70); Platelet Count 236 K/mm3 (150-450); RBC Distribution Width CV 13.9 % (11.6-14.6); RBC Distribution Width SD 45.2 fl (35.1-43.9); Red Blood Count 5.02 M/mm3 (4.2-5.4); White Blood Count 4.3 K/mm3 (4.4-11.0)
[2020-05-12 15:38] LABS: ALB/GLOB Ratio 0.9 RATIO (0.9-2.4); AST(SGOT) 20 U/L (15-37); Alanine Aminotransfer ALT/SGPT 20 U/L (13-56); Albumin, Serum 3.3 g/dL (3.2-5.0); Alkaline Phosphatase 61 U/L (45-117); Anion Gap 3 (5-15); BUN 15 mg/dL (7-18); BUN/Creat Ratio 14.6 RATIO (10-20); Calcium,Total 8.7 mg/dL (8.5-10.1); Chloride 109 mmol/L (98-107); Creatinine, Serum 1.03 mg/dL (0.55-1.02); EST Glomerular Filtration Rate 56 mL/min (>60); Est Glom Filt Rate - Afr Amer 68 mL/min (>60); Globulin 3.8 g/dL (2.2-4.2); Glucose 97 mg/dL (74-106); Potassium 4.1 mmol/L (3.5-5.1); Protein, Total 7.1 g/dL (6.4-8.2); Sodium Level 139 mmol/L (136-145); Thyroid Stim Hormone (TSH) 1.24 uIU/mL (0.358-3.74)
== END ==
PROVIDERS: PCP Family Medicine; Visit Provider Internal Medicine Rheumatology
DX: M06.4 Inflammatory polyarthropathy (principal); E03.9 Hypothyroidism, unspecified; M21.40 Flat foot [pes planus] (acquired), unspecified foot; M17.0 Bilateral primary osteoarthritis of knee; I12.9 Hypertensive chronic kidney disease with stage 1 through stage 4 chronic kidney disease, or unspecified chronic kidney disease; N18.9 Chronic kidney disease, unspecified; M48.061 Spinal stenosis, lumbar region without neurogenic claudication; E05.20 Thyrotoxicosis with toxic multinodular goiter without thyrotoxic crisis or storm; N25.81 Secondary hyperparathyroidism of renal origin; E11.9 Type 2 diabetes mellitus without complications; Z79.899 Other long term (current) drug therapy
CPT/HCPCS: 36415; 80053; 84443; 85025

== ENCOUNTER → 2020-07-25 15:12 | Outpatient (CLI) | payer MEDICARE, BC, SELFPAY ==
[2020-07-25 17:54] LABS: Absolute Lymphocyte Count 1.17 X10^3/uL (0.83-4.51); Absolute Neutrophil Count 2.6 X10^3/uL (2.0-7.7); Basophil# 0.04 X10^3/uL; Basophil% 0.9 % (0-1); Eosinophil# 0.07 X10^3/uL; Eosinophils% 1.6 % (0-5); Hematocrit 43.1 % (37-47); Hemoglobin 13.4 g/dL (12.0-15.0); Lymphocyte # 1.17 X10^3/ul (0.83-4.51); Lymphocyte % 27.1 % (19-41); Mean Corp Hgb Conc 31.1 g/dL (32-36); Mean Corpuscular Hgb 27.3 pg (27.0-32.0); Mean Platelet Vol. 11.3 fl (6.2-12.0); Monocyte# 0.45 X10^3/uL; Monocyte% 10.4 % (0-10); NRBC Flagged by Analyzer 0 % (0-5); Neutrophil # 2.57 X10^3/uL (2.7-7.7); Neutrophil % 59.5 % (47-70); Platelet Count 227 K/mm3 (150-450); RBC Distribution Width CV 13.4 % (11.6-14.6); RBC Distribution Width SD 43.5 fl (35.1-43.9); White Blood Count 4.3 K/mm3 (4.4-11.0)
[2020-07-25 18:11] LABS: ALB/GLOB Ratio 0.9 RATIO (0.9-2.4); AST(SGOT) 25 U/L (15-37); Alanine Aminotransfer ALT/SGPT 18 U/L (13-56); Albumin, Serum 3.4 g/dL (3.2-5.0); Alkaline Phosphatase 60 U/L (45-117); Anion Gap 8 (5-15); BUN 13 mg/dL (7-18); BUN/Creat Ratio 13.5 RATIO (10-20); Chloride 109 mmol/L (98-107); Creatinine, Serum 0.96 mg/dL (0.55-1.02); EST Glomerular Filtration Rate 61 mL/min (>60); Est Glom Filt Rate - Afr Amer 73 mL/min (>60); Globulin 3.7 g/dL (2.2-4.2); Glucose 104 mg/dL (74-106); Potassium 3.9 mmol/L (3.5-5.1); Protein, Total 7.1 g/dL (6.4-8.2); Sodium Level 143 mmol/L (136-145)
== END ==
PROVIDERS: PCP Family Medicine; Referring Provider Internal Medicine Rheumatology; Visit Provider Internal Medicine Rheumatology
DX: M06.4 Inflammatory polyarthropathy (principal); M21.40 Flat foot [pes planus] (acquired), unspecified foot; M17.0 Bilateral primary osteoarthritis of knee; M18.9 Osteoarthritis of first carpometacarpal joint, unspecified; M48.061 Spinal stenosis, lumbar region without neurogenic claudication; I12.9 Hypertensive chronic kidney disease with stage 1 through stage 4 chronic kidney disease, or unspecified chronic kidney disease; E11.22 Type 2 diabetes mellitus with diabetic chronic kidney disease; E05.20 Thyrotoxicosis with toxic multinodular goiter without thyrotoxic crisis or storm; N25.81 Secondary hyperparathyroidism of renal origin; Z79.899 Other long term (current) drug therapy
CPT/HCPCS: 36415; 80053; 85025

== ENCOUNTER → 2020-10-06 14:30 | Outpatient (CLI) | payer MEDICARE, BC, SELFPAY ==
[2020-10-06 17:36] LABS: Basophil# 0.05 X10^3/uL; Eosinophil# 0.07 X10^3/uL; Eosinophils% 1.5 % (0-5); Hemoglobin 13.4 g/dL (12.0-15.0); Mean Corp Hgb Conc 31.9 g/dL (32-36); Mean Corpuscular Hgb 28.2 pg (27.0-32.0); Mean Corpuscular Volume 88.2 fL (81-99); Mean Platelet Vol. 11.1 fl (6.2-12.0); Monocyte# 0.52 X10^3/uL; Monocyte% 10.9 % (0-10); NRBC Flagged by Analyzer 0 % (0-5); Neutrophil # 3.04 X10^3/uL (2.7-7.7); Neutrophil % 63.4 % (47-70); Platelet Count 268 K/mm3 (150-450); RBC Distribution Width CV 13.9 % (11.6-14.6); RBC Distribution Width SD 45.1 fl (35.1-43.9); Red Blood Count 4.76 M/mm3 (4.2-5.4); White Blood Count 4.8 K/mm3 (4.4-11.0)
[2020-10-06 18:02] LABS: ALB/GLOB Ratio 0.9 RATIO (0.9-2.4); AST(SGOT) 26 U/L (15-37); Alanine Aminotransfer ALT/SGPT 20 U/L (13-56); Albumin, Serum 3.4 g/dL (3.2-5.0); Alkaline Phosphatase 60 U/L (45-117); Anion Gap 5 (5-15); BUN 13 mg/dL (7-18); BUN/Creat Ratio 12.7 RATIO (10-20); Calcium,Total 8.8 mg/dL (8.5-10.1); Chloride 108 mmol/L (98-107); Creatinine, Serum 1.02 mg/dL (0.55-1.02); EST Glomerular Filtration Rate 57 mL/min (>60); Est Glom Filt Rate - Afr Amer 69 mL/min (>60); Globulin 3.6 g/dL (2.2-4.2); Glucose 109 mg/dL (74-106); Potassium 4.2 mmol/L (3.5-5.1); Sodium Level 140 mmol/L (136-145)
== END ==
PROVIDERS: PCP Family Medicine; Referring Provider Internal Medicine Rheumatology; Visit Provider Internal Medicine Rheumatology
DX: M06.4 Inflammatory polyarthropathy (principal); M21.40 Flat foot [pes planus] (acquired), unspecified foot; M17.0 Bilateral primary osteoarthritis of knee; M48.061 Spinal stenosis, lumbar region without neurogenic claudication; E05.20 Thyrotoxicosis with toxic multinodular goiter without thyrotoxic crisis or storm; N25.81 Secondary hyperparathyroidism of renal origin; E11.22 Type 2 diabetes mellitus with diabetic chronic kidney disease; I12.9 Hypertensive chronic kidney disease with stage 1 through stage 4 chronic kidney disease, or unspecified chronic kidney disease; M18.9 Osteoarthritis of first carpometacarpal joint, unspecified; Z79.899 Other long term (current) drug therapy
CPT/HCPCS: 36415; 80053; 85025

== ENCOUNTER → 2020-11-08 11:14 | Outpatient (CLI) | payer MEDICARE, BC, SELFPAY ==
[2020-11-08 15:51] LABS: Anion Gap 8 (5-15); BUN 16 mg/dL (7-18); BUN/Creat Ratio 16.2 RATIO (10-20); Calcium,Total 8.7 mg/dL (8.5-10.1); Chloride 107 mmol/L (98-107); Creatinine, Serum 0.99 mg/dL (0.55-1.02); EST Glomerular Filtration Rate 59 mL/min (>60); Est Glom Filt Rate - Afr Amer 71 mL/min (>60); Glucose 98 mg/dL (74-106); Potassium 3.9 mmol/L (3.5-5.1); Sodium Level 141 mmol/L (136-145)
[2020-11-08 16:19] LABS: Protein, Urine (Random) 93.5 mg/dL (<11.9); Protein:Creat Ratio 283 mg/g CRE (0-200)
== END ==
PROVIDERS: PCP Family Medicine; Referring Provider Internal Medicine Nephrology; Visit Provider Internal Medicine Nephrology
DX: N18.30 Chronic kidney disease, stage 3 unspecified (principal)
CPT/HCPCS: 36415; 80048; 82570; 84156

== ENCOUNTER → 2021-01-31 15:49 | Outpatient (CLI) | payer MEDICARE, BC, SELFPAY ==
[2021-01-31 17:37] LABS: Absolute Lymphocyte Count 1.29 X10^3/uL (0.83-4.51); Absolute Neutrophil Count 2.6 X10^3/uL (2.0-7.7); Basophil# 0.05 X10^3/uL; Basophil% 1.1 % (0-1); Eosinophil# 0.09 X10^3/uL; Hematocrit 44.9 % (37-47); Hemoglobin 13.8 g/dL (12.0-15.0); Lymphocyte # 1.29 X10^3/ul (0.83-4.51); Mean Corp Hgb Conc 30.7 g/dL (32-36); Mean Corpuscular Hgb 27.3 pg (27.0-32.0); Mean Corpuscular Volume 88.7 fL (81-99); Mean Platelet Vol. 10.2 fl (6.2-12.0); Monocyte# 0.56 X10^3/uL; Monocyte% 12.1 % (0-10); NRBC Flagged by Analyzer 0 % (0-5); Neutrophil # 2.61 X10^3/uL (2.7-7.7); Neutrophil % 56.6 % (47-70); Platelet Count 250 K/mm3 (150-450); RBC Distribution Width CV 13.6 % (11.6-14.6); RBC Distribution Width SD 44.4 fl (35.1-43.9); Red Blood Count 5.06 M/mm3 (4.2-5.4); White Blood Count 4.6 K/mm3 (4.4-11.0)
[2021-01-31 18:12] LABS: ALB/GLOB Ratio 0.9 RATIO (0.9-2.4); AST(SGOT) 19 U/L (15-37); Alanine Aminotransfer ALT/SGPT 19 U/L (13-56); Albumin, Serum 3.4 g/dL (3.2-5.0); Alkaline Phosphatase 61 U/L (45-117); Anion Gap 7 (5-15); BUN 17 mg/dL (7-18); BUN/Creat Ratio 15.2 RATIO (10-20); Calcium,Total 9.1 mg/dL (8.5-10.1); Chloride 108 mmol/L (98-107); Creatinine, Serum 1.12 mg/dL (0.55-1.02); EST Glomerular Filtration Rate 51 mL/min (>60); Est Glom Filt Rate - Afr Amer 62 mL/min (>60); Globulin 3.9 g/dL (2.2-4.2); Glucose 120 mg/dL (74-106); Protein, Total 7.3 g/dL (6.4-8.2); Sodium Level 140 mmol/L (136-145)
== END ==
PROVIDERS: PCP Family Medicine; Referring Provider Internal Medicine Rheumatology; Visit Provider Internal Medicine Rheumatology
DX: M06.4 Inflammatory polyarthropathy (principal); M21.40 Flat foot [pes planus] (acquired), unspecified foot; M17.0 Bilateral primary osteoarthritis of knee; I12.9 Hypertensive chronic kidney disease with stage 1 through stage 4 chronic kidney disease, or unspecified chronic kidney disease; E11.22 Type 2 diabetes mellitus with diabetic chronic kidney disease; M48.061 Spinal stenosis, lumbar region without neurogenic claudication; E05.20 Thyrotoxicosis with toxic multinodular goiter without thyrotoxic crisis or storm; N25.81 Secondary hyperparathyroidism of renal origin; Z79.899 Other long term (current) drug therapy
CPT/HCPCS: 36415; 80053; 85025

== ENCOUNTER 2021-04-20 11:01 | Outpatient (CLI) | payer MEDICARE, BC, SELFPAY ==
[2021-04-20 12:18] LABS: Absolute Lymphocyte Count 1.06 X10^3/uL (0.83-4.51); Absolute Neutrophil Count 2.5 X10^3/uL (2.0-7.7); Basophil# 0.07 X10^3/uL; Basophil% 1.7 % (0-1); Eosinophil# 0.11 X10^3/uL; Eosinophils% 2.7 % (0-5); Hemoglobin 13.6 g/dL (12.0-15.0); Lymphocyte # 1.06 X10^3/ul (0.83-4.51); Mean Corp Hgb Conc 31.6 g/dL (32-36); Mean Corpuscular Hgb 27.3 pg (27.0-32.0); Mean Corpuscular Volume 86.2 fL (81-99); Mean Platelet Vol. 10.6 fl (6.2-12.0); Monocyte# 0.37 X10^3/uL; Monocyte% 9.1 % (0-10); NRBC Flagged by Analyzer 0 % (0-5); Neutrophil # 2.45 X10^3/uL (2.7-7.7); Neutrophil % 60.3 % (47-70); Platelet Count 248 K/mm3 (150-450); RBC Distribution Width CV 13.5 % (11.6-14.6); RBC Distribution Width SD 42.8 fl (35.1-43.9); Red Blood Count 4.99 M/mm3 (4.2-5.4); White Blood Count 4.1 K/mm3 (4.4-11.0)
[2021-04-20 12:58] LABS: ALB/GLOB Ratio 0.8 RATIO (0.9-2.4); AST(SGOT) 21 U/L (15-37); Alanine Aminotransfer ALT/SGPT 18 U/L (13-56); Albumin, Serum 3.2 g/dL (3.2-5.0); Alkaline Phosphatase 59 U/L (45-117); Anion Gap 4 (5-15); BUN 15 mg/dL (7-18); BUN/Creat Ratio 13.9 RATIO (10-20); Calcium,Total 8.9 mg/dL (8.5-10.1); Chloride 112 mmol/L (98-107); Creatinine, Serum 1.08 mg/dL (0.55-1.02); EST Glomerular Filtration Rate 53 mL/min (>60); Est Glom Filt Rate - Afr Amer 64 mL/min (>60); Globulin 3.8 g/dL (2.2-4.2); Glucose 101 mg/dL (74-106); Potassium 3.8 mmol/L (3.5-5.1); Sodium Level 140 mmol/L (136-145)
== END 2021-04-20 23:59 | disposition home or self-care (01) ==
LOC: MTLAB 11:03
PROVIDERS: PCP Family Medicine; Referring Provider Internal Medicine Rheumatology; Visit Provider Internal Medicine Rheumatology
DX: M06.4 Inflammatory polyarthropathy (principal); E11.22 Type 2 diabetes mellitus with diabetic chronic kidney disease; N25.81 Secondary hyperparathyroidism of renal origin; M21.40 Flat foot [pes planus] (acquired), unspecified foot; M17.0 Bilateral primary osteoarthritis of knee; N18.9 Chronic kidney disease, unspecified; M48.061 Spinal stenosis, lumbar region without neurogenic claudication; I12.9 Hypertensive chronic kidney disease with stage 1 through stage 4 chronic kidney disease, or unspecified chronic kidney disease; E05.20 Thyrotoxicosis with toxic multinodular goiter without thyrotoxic crisis or storm; Z79.899 Other long term (current) drug therapy
CPT/HCPCS: 36415; 80053; 85025

== ENCOUNTER 2021-06-06 13:11 | Inpatient (IN) | payer MEDICARE, BC, SELFPAY ==
[2021-06-06] VITALS (8 sets, daily range): BP systolic 153–164; BP diastolic 88–94; PULSE 75–90; RESP 15–18; TEMP 36.3–36.8; O2SAT 96–100; BMI 38.7; BMI 35.5
--- NOTE | 2021-06-06 13:38 | EKG12_ITS ---
Test Reason : FALL Blood Pressure : / mmHG Vent. Rate : 075 BPM Atrial Rate : 326 BPM P-R Int : 144 ms QRS Dur : 088 ms QT Int : 416 ms P-R-T Axes : -39 -53 026 degrees QTc Int : 464 ms Undetermined rhythm : Consider Atrial Fibrillation Leftward axis Left anterior fascicular block Low voltage QRS (Limb Leads) Abnormal ECG Confirmed by JUSTYN VARGAS, ANGIE ([id number]), film and video editor DEMI FREEMAN ([id number]) on 06/08/2021 7:23:21 AM Referred By: AR/PL Confirmed By:ANGIE ALEJANDRA MD
[2021-06-06] MEDS: Morphine 4 MG/ML Syringe IV ×2 (13:49→14:45)
[2021-06-06] MEDS: Ondansetron 4 MG/2 ML Vial IV (13:49)
[2021-06-06 14:00] LABS: Absolute Lymphocyte Count 0.57 X10^3/uL (0.83-4.51); Absolute Neutrophil Count 5.1 X10^3/uL (2.0-7.7); Basophil# 0.03 X10^3/uL; Basophil% 0.5 % (0-1); Eosinophil# 0.04 X10^3/uL; Eosinophils% 0.7 % (0-5); Hematocrit 42.7 % (37-47); Hemoglobin 13.6 g/dL (12.0-15.0); Lymphocyte # 0.57 X10^3/ul (0.83-4.51); Lymphocyte % 9.3 % (19-41); Mean Corp Hgb Conc 31.9 g/dL (32-36); Mean Corpuscular Hgb 27.9 pg (27.0-32.0); Mean Corpuscular Volume 87.5 fL (81-99); Mean Platelet Vol. 10.3 fl (6.2-12.0); Monocyte# 0.35 X10^3/uL; Monocyte% 5.7 % (0-10); NRBC Flagged by Analyzer 0 % (0-5); POSITIVE DIFFERENTIAL YES; Platelet Count 212 K/mm3 (150-450); RBC Distribution Width CV 13.9 % (11.6-14.6); RBC Distribution Width SD 44.6 fl (35.1-43.9); Red Blood Count 4.88 M/mm3 (4.2-5.4); White Blood Count 6.1 K/mm3 (4.4-11.0)
[2021-06-06 14:12] LABS: Anion Gap 6 (5-15); BUN 14 mg/dL (7-18); BUN/Creat Ratio 13.2 RATIO (10-20); Calcium,Total 8.2 mg/dL (8.5-10.1); Chloride 110 mmol/L (98-107); Creatinine, Serum 1.06 mg/dL (0.55-1.02); EST Glomerular Filtration Rate 54 mL/min (>60); Est Glom Filt Rate - Afr Amer 66 mL/min (>60); Estimated Creatinine Clearance 51.88 ml/min; Glucose 124 mg/dL (74-106); Potassium 3.6 mmol/L (3.5-5.1); Sodium Level 141 mmol/L (136-145)
--- NOTE | 2021-06-06 14:13 | EDS_ITS ---
HPI History of Present Illness Chief Complaint: Fall Informant: patient and spouse/S.O. Narrative Narrative: Patient presents with right hip pain. Patient states she was vacuuming at home. She just misstepped and fell. She landed on her right side. She hit her elbow and her right hip took most of the impact. She states this was a trip and fall. She was not syncopal. She never hit her head in any time. The only area that is actually providing any discomfo rt is her right hip. At this time, its not hurting that bad if she has it propped up and she is not moving. She was not able to bear weight on it. She has had knee replacements once on the right 2 times on the left but has never had hip surgery. She is not on any anticoagulation. [facility] Medical History Arthritis Back problem Breast lump Cellulitis of hand, right Goiter History of blood transfusion History of uterine fibroid HTN (hypertension) Kidney disease Kidney stones Neuropathy parathyroid thyroid Rheumatoid arthritis Seasonal allergies Thyroid disease Home Medications hydroxychloroquine 200 mg PO BID 02/19/13 [History Last Taken Unknown] leflunomide 20 mg PO DAILY 02/19/13 [History Last Taken Unknown] metoprolol tartrate 25 mg PO DAILY 02/19/13 [History Last Taken 03/08/14 06:00 25] cholecalciferol (vitamin D3) 50 mcg (2,000 unit) tablet 600 unit PO DAILY tab 01/22/17 [History Last Taken Unknown] levothyroxine 200 mcg tablet 150 mcg PO DAILY tab 01/22/17 [History Last Taken Unknown] loratadine-pseudoephedrine ER 10 mg-240 mg tablet,extended [id number] 1 tab PO QAM PRN 01/22/17 [History Last Taken Unknown] tramadol 50 mg tablet 50 mg PO Q8H tab 01/22/17 [History Last Taken Unknown] Allergy/AdvReac Type Severity Reaction Status Date / Time acetaminophen [From Vicodin] AdvReac Intermediate Vomiting Verified 06/06/21 13:13 amoxicillin trihydrate AdvReac Vomiting Verified 06/06/21 13:13 [From Augmentin] hydrocodone AdvReac Vomiting Verified 06/06/21 13:13 ANESTHESIA AdvReac Unknown Uncoded 06/06/21 13:13 Family History Mother Arthritis Cancer Sister Arthritis Diabetes Father Bleeding disorder Heart disease Hypertension Son Bleeding disorder Surgical History H/O lumpectomy H/O spinal fusion H/O thyroidectomy History of bilateral knee replacement History of spinal fusion History of tonsillectomy and adenoidectomy Social History Smoking Status: Never smoker alcohol intake: current substance use type: does not use ROS ROS ED Constitutional Constitutional ED: Denies chills or fever(s) Eyes Eyes: Denies blurry vision or change in vision ENT ENT ED: Denies rhinorrhea or sore throat Cardiovascular Cardiovascular: Denies chest pain or palpitations Respiratory/Chest Respiratory/Chest: Denies cough or dyspnea Gastrointestinal Gastrointestinal: Denies abdominal pain, nausea or vomiting Genitourinary Genitourinary ED: Denies dysuria Musculoskeletal Musculoskeletal: Reports arthralgias; Denies back pain or neck pain Integumentary Reports Abrasions; Denies rash Neurologic Neurologic: Denies paresthesias or weakness Endocrine Endocrinology: Denies polydipsia or polyuria Hematologic/Lymphatic Hematologic/Lymphatic: Denies easy bleeding or easy bruising Allergic/Immunologic Allergic/Immunologic ED: Denies urticaria EXAM Physical Exam Const Vital Signs: 06/06/21 13:12 06/06/21 13:13 06/06/21 13:19 Temperature 97.7 F L Temperature Source Oral Pulse Rate 75 82 Respiratory Rate 16 15 Respiratory Effort Normal Respiratory Depth Normal Respiratory Pattern Normal Blood Pressure 161/89 H 161/89 H Blood Pressure Mean 113 113 Pulse Ox 98 98 Oxygen Delivery Method Room Air Room Air Room Air Positive well nourished and well developed General Appearance ED: well developed and NAD HEENT HEENT Narrative: No sign of contusions abrasions or tenderness found on head or neck area. atraumatic; Negative for trauma Eyes EOMs intact bilaterally Neck full ROM General: Negative for tenderness Chest Wall inspection of chest normal Resp normal respiratory effort and clear to auscultation bilaterally Auscultation: Negative for rales, rhonchi or wheezes Cardio regular rhythm Rate: regular rate GI normal to inspection, nondistended, normoactive bowel sounds and non-tender Palpation: soft Extremity Extremity Narrative: Right leg is internally rotated and flexed. She has pain over by the right hip area. I do not get any tenderness in the femur knee or lower extremity. She does have chronic changes from arthritis. She has a orthotic on the left ankle area. No pain on the left side. I also see a slight abrasion on the posterior aspect of the right elbow but there is no pain with motion or palpation. Neuro oriented x3 Sensorium / Orientation: alert Psych mental status grossly normal Skin no rashes or lesions noted Trauma: abrasion MDM MDM MDM Narrative Medical decision making narrative: Patient CBC shows no marked abnormalities. Electrolytes show minimal rise of creatinine and glucose. Chest x-ray shows no acute process. Hip/pelvis x-ray shows a right femoral neck/basicervical fracture. I rechecked the patient. She was having more pain so she is given further meds. I discussed the case with orthopedic surgeon Dr. Reyes. I have hospitalist pest controller regarding admission. Lab Data Attestation: I reviewed the patient's lab results. Labs: Laboratory Results - last 24 hr 06/06/21 06/06/21 13:50 13:50 WBC 6.1 RBC 4.88 Hgb 13.6 Hct 42.7 MCV 87.5 MCH 27.9 MCHC 31.9 L RDW Std Deviation 44.6 H RDW Coeff of Rita 13.9 Plt Count 212 MPV 10.3 Immature Gran % (Auto) 0.800 Neut % (Auto) 83.0 H Lymph % (Auto) 9.3 L [place] % (Auto) 5.7 Eos % (Auto) 0.7 Baso % (Auto) 0.5 Absolute Neuts (auto) 5.1 Absolute Lymphs (auto) 0.57 L Nucleated RBC % 0 Sodium 141 Potassium 3.6 Chloride 110 H Carbon Dioxide 25.0 Anion Gap 6 BUN 14 Creatinine 1.06 H Estim Creat Clear Calc 51.88 Est GFR (MDRD) Af Amer 66 Est GFR (MDRD) Non-Af 54 L BUN/Creatinine Ratio 13.2 Glucose 124 H Calcium 8.2 L Radiography Diagnostic Testing: Clinical Impression(s) from Imaging Studies Chest X-Ray 06/06/21 14:15 IMPRESSION: Nonacute portable x-ray examination of the chest. Electronically Signed: Guille Herrera MD (Brooks) at 14:37 EDT , Hip/Pelvis X-Ray 06/06/21 14:15 IMPRESSION: Right femoral neck fracture. Electronically Signed: Guille Herrera MD (Brooks) at 14:38 EDT , Discharge Plan Triage Chief Complaint: Fall ED Provider: Rosendo Moya Dx/Rx/DC Orders Clinical Impression: Fracture of hip, right, closed, Fall at home, Abrasion of right elbow Prescriptions: No Action loratadine-pseudoephedrine [Claritin-D 24 Hour] 10-240 mg tablet extended release 24 hr 1 tab PO QAM PRNRF: 0 tramadol 50 mg tablet 50 mg PO Q8H RF: 0 leflunomide 20 MG tablet 20 mg PO DAILY RF: 0 metoprolol tartrate 50 MG tablet 25 mg PO DAILY RF: 0 hydroxychloroquine 200 MG tablet 200 mg PO BID RF: 0 levothyroxine 200 MCG tablet 150 mcg PO DAILY RF: 0 cholecalciferol (vitamin D3) 2,000 UNIT tablet 600 unit PO DAILY RF: 0 Primary Care Provider: Billy Church Referrals: Billy Church MD [Primary Care Provider] - Disposition Disposition: Acute Care Hospital
[2021-06-06 14:14] LABS: Differential Indicated SCAN CRITERIA MET
--- NOTE | 2021-06-06 14:15 | RAD_ITS ---
STUDY: X-RAY CHEST REASON FOR EXAM: Female, 71 years old. Right hip fracture, preop TECHNIQUE: AP COMPARISON: None. FINDINGS: The lungs are clear and expanded. There is no demonstrated pleural abnormality. Normal size heart. Normal mediastinum and nathalia. Normal visualized pulmonary arteries. There is atherosclerotic tortuosity of the aortic arch and descending thoracic aorta. Normal visualized thoracic spine. Normal visualized ribs, clavicles, and shoulders. There is no demonstrated abnormality of the visualized soft tissue structures of the upper abdomen. RAD/Chest 1 View (Portable) IMPRESSION: Nonacute portable x-ray examination of the chest. Electronically Signed: Guille Herrera MD (Brooks) at 14:37 EDT ,
--- NOTE | 2021-06-06 14:15 | RAD_ITS ---
STUDY: X-RAY - PELVIS AND RIGHT HIP REASON FOR EXAM: Female, 71 years old. Fall, right hip pain TECHNIQUE: 3 views of the pelvis and hip. COMPARISON: None. FINDINGS: There is a non-specific bowel gas pattern. Normal visualized soft tissue structures. Operative changes of the lumbar spine. Eggshell calcifications of the pelvis may represent uterine fibroids. Normal bilateral iliac wings, sacroiliac joints and visualized sacrum. Normal bilateral superior and inferior pubic rami. Normal pubic symphysis. Normal bilateral ischial tuberosities. Transverse fracture of the right femoral neck with proximal subsidence of the femur. Normal acetabulum. Normal hip joint. RAD/HIP, UNI W/ Pelvis 2-3 Views IMPRESSION: Right femoral neck fracture. Electronically Signed: Guille Herrera MD (Brooks) at 14:38 EDT ,
--- NOTE | 2021-06-06 14:42 | PCM.HP.STD ---
HPI - General General Date of Admission: 06/06/21 Date of Service: 06/06/21 Chief Complaint: Fall, RLE pain HPI Narrative The patient is a 71 y/o F w/ PMHx: Obesity, HTN, HLD, Diabetes mellitus type II, Allergic rhinitis, Rheumatoid arthritis, Hypothyroidism, OA s/p BL TKR who presents to the [facility] ED on 06/06/21 with history of cleaning her home, specifically vacuuming and attempting to go around her chair next to a dresser unfortunately falling onto her right hip and hitting her elbow at the same time with no head trauma or any loss of consciousness with intractable right hip pain, tentative 10, severe, sharp, worse with any movement noted to be shortened and rotated prompting EMS call. Work-up in the ED included T97.7, heart rate 82, BP 161/89, respiratory rate 15, 98% on room air, CBC with WC 6.1, hemoglobin 13.6, platelet 212 with lymphopenia, BMP with chloride 110, BUN/current 14/1.06, glucose 124 otherwise not marked appearing, chest x-ray with no acute cardiopulmonary findings, plain film of the right hip with right femoral neck fracture, EKG with SR without acute evidence of ischemia. In the ED patient initially Zofran 4 mg IV x1 and morphine 4 mg IV x2. ED discussed case with Dr. Reyes who notes intention for OR 06/07/21 afternoon and will discuss options with patient. [facility] Medical History Arthritis Back problem Breast lump Cellulitis of hand, right Goiter History of blood transfusion History of uterine fibroid HTN (hypertension) Kidney disease Kidney stones Neuropathy parathyroid thyroid Rheumatoid arthritis Seasonal allergies Thyroid disease Home Medications hydroxychloroquine 200 mg PO BID 02/19/13 [History Last Taken Unknown] leflunomide 20 mg PO DAILY 02/19/13 [History Last Taken Unknown] metoprolol tartrate 25 mg PO DAILY 02/19/13 [History Last Taken 03/08/14 06:00 25] cholecalciferol (vitamin D3) 50 mcg (2,000 unit) tablet 600 unit PO DAILY tab 01/22/17 [History Last Taken Unknown] loratadine-pseudoephedrine ER 10 mg-240 mg tablet,extended [id number] 1 tab PO QAM PRN 01/22/17 [History Last Taken Unknown] tramadol 50 mg tablet 50 mg PO Q8H tab 01/22/17 [History Last Taken Unknown] levothyroxine 150 mcg PO DAILY 06/06/21 [History Last Taken 06/06/21] Allergy/AdvReac Type Severity Reaction Status Date / Time acetaminophen [From Vicodin] AdvReac Intermediate Vomiting Verified 06/06/21 13:13 amoxicillin trihydrate AdvReac Vomiting Verified 06/06/21 13:13 [From Augmentin] hydrocodone AdvReac Vomiting Verified 06/06/21 13:13 ANESTHESIA AdvReac Unknown Uncoded 06/06/21 13:13 Family History Mother Arthritis Cancer Sister Arthritis Diabetes Father Bleeding disorder Heart disease Hypertension Son Bleeding disorder Surgical History H/O lumpectomy H/O spinal fusion H/O thyroidectomy History of bilateral knee replacement History of spinal fusion History of tonsillectomy and adenoidectomy Social History (Updated 06/06/21 @ 15:[address] Roslyn Malik MD) household members: spouse Smoking Status: Never smoker alcohol intake: current alcohol intake frequency: a few times a month substance use type: does not use ROS ROS Narrative Admission Review of Systems: CONSTITUTIONAL: No weight loss, fever, chills, + weakness or fatigue. HEENT: Eyes: No visual loss, blurred vision, double vision or yellow sclerae. Ears, Nose, Throat: No hearing loss, sneezing, congestion, runny nose or sore throat. SKIN: + RUE abrasions. CARDIOVASCULAR: No chest pain, chest pressure or chest discomfort, palpitations, edema, orthopnea, syncopal events. RESPIRATORY: No shortness of breath, cough or sputum, wheezing, hemoptysis. GASTROINTESTINAL: No anorexia, nausea, vomiting or diarrhea, abdominal pain, melena, BRBPR. GENITOURINARY: No dysuria, frequency, urgency or retention. NEUROLOGICAL: No headache, dizziness, syncope, paralysis, ataxia, numbness or tingling in the extremities, change in bowel or bladder control, seizure. MUSCULOSKELETAL: + muscle, back pain, joint pain or stiffness. HEMATOLOGIC: No anemia, bleeding or bruising. LYMPHATICS: No enlarged nodes. No history of splenectomy. PSYCHIATRIC: No history of depression or anxiety. ENDOCRINOLOGIC: No reports of sweating, cold or heat intolerance. No polyuria or polydipsia. ALLERGIES: + rhinitis. Vital Signs Vital Signs Vital Signs: 06/06/21 13:12 06/06/21 13:13 06/06/21 13:19 Temperature 97.7 F L Temperature Source Oral Pulse Rate 75 82 Respiratory Rate 16 15 Respiratory Effort Normal Respiratory Depth Normal Respiratory Pattern Normal Blood Pressure 161/89 H 161/89 H Blood Pressure Mean 113 113 Pulse Ox 98 98 Oxygen Delivery Method Room Air Room Air Room Air Weight Weight: 269 lb 10.005 oz Body Mass Index (BMI) 38.7 Physical Exam Narrative Physical Examination: General: Awake, alert, oriented x 3 and cooperative, laying in the ED bed, anxious, notes pain currently controlled after recent morphine Skin: Normal color, normal turgor, no icterus, no cyanosis except right upper extremity abrasion, no active bleeding. HEENT: AT/NC, EOMI, PERRLA, MMM, no carotid bruits or JVD noted. Lungs: Diminished, greater bases, appropriate effort,no rales, ronchi or wheezing. Heart: Regular rate and rhythm; no gallop, rub audible. Abdomen: Soft, obese, NTTP, ND, distant normal BS, no HSM. Extremities: No cyanosis, no clubbing, bilateral lower extremity peripheral pulses intact, bilateral ankle not markedly pitting edema present. Right lower extremity externally rotated. Neurological: Patient awake, alert, oriented as notated, cognitive function intact; pupils equally reactive to light and accommodation, cranial nerves II-XII grossly normal, moving all 4 extremities however limited right lower extremity to ability to wiggle toes, sensation intact, strength accordingly severely global decreased given acute presentation with right hip fracture Psychiatric: Affect appears anxious, notes her is recently undergoing cancer therapy and is able to drive and she has been his primary caregiver, no history of depressive or anxiety. Results Lab / Micro Data Result Diagrams: 06/06/21 13:50 06/06/21 13:50 Labs: Laboratory Results - last 24 hr 06/06/21 13:50: WBC 6.1, RBC 4.88, Hgb 13.6, Hct 42.7, MCV 87.5, MCH 27.9, MCHC 31.9 L, RDW Std Deviation 44.6 H, RDW Coeff of Rita 13.9, Plt Count 212, MPV 10.3, Immature Gran % (Auto) 0.800, Neut % (Auto) 83.0 H, Lymph % (Auto) 9.3 L, [place] % (Auto) 5.7, Eos % (Auto) 0.7, Baso % (Auto) 0.5, Absolute Neuts (auto) 5.1, Absolute Lymphs (auto) 0.57 L, Nucleated RBC % 0 06/06/21 13:50: Sodium 141, Potassium 3.6, Chloride 110 H, Carbon Dioxide 25.0, Anion Gap 6, BUN 14, Creatinine 1.06 H, Estim Creat Clear Calc 51.88, Est GFR (MDRD) Af Amer 66, Est GFR (MDRD) Non-Af 54 L, BUN/Creatinine Ratio 13.2, Glucose 124 H, Calcium 8.2 L Radiology Impression Chest X-Ray 06/06/21 14:15 IMPRESSION: Nonacute portable x-ray examination of the chest. Electronically Signed: Guille Herrera MD (Brooks) at 14:37 EDT , Hip/Pelvis X-Ray 06/06/21 14:15 IMPRESSION: Right femoral neck fracture. Electronically Signed: Guille Herrera MD (Brooks) at 14:38 EDT , Assessment & Plan Assessment/Plan (1) Fracture of hip, right, closed: QUALIFIERS: Encounter type: initial encounter Qualified Code(s): S72.001A - Fracture of unspecified part of neck of right femur, initial encounter for closed fracture PLAN: The patient is a 71 y/o F w/ PMHx: Obesity, HTN, HLD, Diabetes mellitus type II, Allergic rhinitis, Rheumatoid arthritis, Hypothyroidism, OA s/p BL TKR who presents to the [facility] ED on 06/06/21 with history of cleaning her home, specifically vacuuming and attempting to go around her chair next to a dresser unfortunately falling onto her right hip and hitting her elbow at the same time with no head trauma or any loss of consciousness with intractable right hip pain, tentative 10, severe, sharp, worse with any movement noted to be shortened and rotated prompting EMS call. #1. General debility, R hip pain s/p mechanical fall w/ right femoral neck fracture: Plain film noting right femoral neck fracture. Orthopedic surgery consulted from ED. Will admit to MS, maintain NPO after midnight for possible a.m. intervention, continue gentle IVFs after midnight, obtain TSH, Mag level, UA, UCx, tavarez placement, monitor I/Os, frequent positioning, fall precautions, PRN pain, PRN antiemetic regimen. PT/OT following operative intervention. CM consulted for discharge planning. NSQIP with average to below average risk, EKG, chest x-ray and labs reviewed. Discussed case with Dr. Reyes and will plan progression to operative intervention 06/07/2021 afternoon. He notes intention to discuss options with patient but given she is active we will potentially offer her a partial versus full replacement. #2. Diabetes mellitus type II, diet controlled: From current list not on regimen and per discussion confirmed diet controlled, will obtain hemoglobin A1c and will maintain on ADA diet with Accu-Cheks with insulin sliding scale until resulted, n.p.o. after midnight. #3. Hypertension: Continue home regimen including metoprolol with hold parameters as needed, PRN hydralazine. #4. Hyperlipidemia: Not on regimen, defer to outpatient #5. Allergic rhinitis: We will continue patient home regimen if symptom onset. #6. Hypothyroidism: Continue home synthroid regimen, TSH and FT4 pending. #7. Rheumatoid arthritis: We will continue patient home leflunomide and Plaquenil regimen. #8. Obesity: Weight loss and lifestyle changes encouraged. #9. DVT prophylaxis: SCDs, defer chemoprophylaxis for planned operative intervention. #10. CODE status: Patient does not have healthcare partner corporate associate attorney nor living will in place. Full Code. Charges/Coding Visit Charges Inpatient E&M: 85713 Init Hosp L3
--- NOTE | 2021-06-06 15:16 | NURSING ---
MED SURG OBS WHITE FEMORAL HEAD FX
[2021-06-06 16:10] LABS: Bedside Glucose 122 mg/dL (74-106)
[2021-06-06] MEDS: Morphine 2 MG/ML Syringe IV ×2 (17:41→23:31)
[2021-06-06] MEDS: Hydroxychloroquine 200 MG Tablet PO (17:42)
[2021-06-06] MEDS: 0.9% Saline Lock 10 ML Syringe IV (17:42)
[2021-06-06 17:46] LABS: Bacteria 0 SEEN /hpf (None Seen); Mucous, Urine 0 SEEN /hpf (<or=2+); Red Blood Cells-Urine 0 SEEN /hpf (0-5); Squamous Epithelial Cells - UA 0 SEEN /hpf (5-10); White Blood Cells 0 SEEN /hpf (0-5)
[2021-06-06 17:51] LABS: Color, Urine Yellow (Yellow); Glucose, Dipstick Normal (Normal); Ketone-Dipstick 15 mg/dl (Negative); Leukocyte Esterase-Dipstick Negative /ul (Negative); Nitrite-Dipstick Negative (Negative); Occult Blood-Urine Negative /ul (Negative); Protein-Dipstick Negative (Negative); Specific Gravity, Urine 1.015 (1.002-1.030); Urine Bilirubin Dipstick Negative (Negative); Urine Clarity Clear (Clear); Urine Urobilinogen Normal (Normal)
[2021-06-06] MEDS: Loratadine 10 MG Tablet PO (21:29)
[2021-06-06] MEDS: Insulin Lispro 100 UNIT/ML INSULN.PEN SC (21:32)
[2021-06-06 21:46] LABS: Bedside Glucose 162 mg/dL (74-106)
[2021-06-06] MEDS: 0.9% Normal Saline 1,000 ML 100 ML IV (23:45)
[2021-06-07] VITALS (12 sets, daily range): BP systolic 139–168; BP diastolic 76–112; PULSE 76–93; RESP 16–18; TEMP 36.6–37.4; O2SAT 92–99; BMI 35.5
--- NOTE | 2021-06-07 | HIP_PTH ---
PATIENT: KULDEEP AGUIRRE LOC: [facility] U#:[id number] AGE/SX: 71/F ROOM: [place]311 RE06/06/[address]: Dr. Tiny Rose MD : 1950 BED: 1 DIS: 06/08/2021 SPEC #: [id number] RECD: 06/08/21 08:29 STATUS: BENNIE REQ #: [id number] GURJIT: 06/07/21 00:[address]: Bradley Reyes DEPT: SURGICAL PATHOLOGY RECD BY: Dell Nye ENTERED: 06/08/21 08:38 SP TYPE: TOTAL HIP OTHR DR: MD Dr. Roslyn Berry MD Dr. Rodney Miller, MD Dr. Scott Hannan, MD Tissues: Hip, NOS Procedures: Decalcification bone/plaque Surgery Specimen Level IV Comments: @ Ordering doctor for DEC edited from to [email or web address] Reed by SHIRLEY at 06/08/21 1425 @ Ordering doctor for SUIV edited from to [email or web address] Reed by SHIRLEY at 06/08/21 1425 @ Submitting doctor edited from to [email or web address] Reed by SHIRLEY at 06/08/21 1425 HEADER OPERATION: Right hip hemiarthroplasty PRE-OP DIAGNOSIS: Fracture of right femur TISSUE SUBMITTED: Bone right hip MICROSCOPIC DIAGNOSIS Bone and tissue of right hip joint fracture, total resection: Consistent with organizing fracture callus. AM/am 06/13/21 MICROSCOPIC DESCRIPTION Slides are reviewed. GROSS DESCRIPTION Received is one container labeled with the patient's name and designated bone right hip. The specimen consists of a escamilla femoral head measuring 5 x 5 x 4 cm. The articular surface is smooth. Resection margin is irregular and hemorrhagic. Also present in the specimen container are multiple detached pieces of bone measuring in aggregate 6 x 5.5 x 3 cm. Cobbler Apprentice sections are submitted in two cassettes after decalcification as follows: 1 - detached pieces of bone, 2 - femoral head. / SJ:yady 06/09/2021 :5 CPT: 66969, 18946
[2021-06-07] MEDS: hydrALAZINE 20 MG/ML Vial 10 MG IV (03:00)
[2021-06-07] MEDS: Morphine 2 MG/ML Syringe IV ×3 (03:01→11:43)
[2021-06-07] MEDS: 0.9% Saline Lock 10 ML Syringe IV ×3 (03:05→11:42)
[2021-06-07 05:39] LABS: Absolute Lymphocyte Count 0.73 X10^3/uL (0.83-4.51); Basophil# 0.03 X10^3/uL; Basophil% 0.6 % (0-1); Eosinophil# 0.01 X10^3/uL; Eosinophils% 0.2 % (0-5); Hematocrit 37.5 % (37-47); Hemoglobin 12.2 g/dL (12.0-15.0); Lymphocyte # 0.73 X10^3/ul (0.83-4.51); Lymphocyte % 13.7 % (19-41); Mean Corp Hgb Conc 32.5 g/dL (32-36); Mean Corpuscular Hgb 27.9 pg (27.0-32.0); Mean Corpuscular Volume 85.6 fL (81-99); Mean Platelet Vol. 10.7 fl (6.2-12.0); Monocyte# 0.56 X10^3/uL; Monocyte% 10.5 % (0-10); NRBC Flagged by Analyzer 0 % (0-5); Neutrophil # 3.96 X10^3/uL (2.7-7.7); Neutrophil % 74.6 % (47-70); Platelet Count 168 K/mm3 (150-450); RBC Distribution Width SD 43.9 fl (35.1-43.9); Red Blood Count 4.38 M/mm3 (4.2-5.4); White Blood Count 5.3 K/mm3 (4.4-11.0)
[2021-06-07] MEDS: Levothyroxine 150 MCG Tablet PO (06:35)
[2021-06-07 06:41] LABS: Bedside Glucose 149 mg/dL (74-106)
[2021-06-07 06:46] LABS: ALB/GLOB Ratio 0.9 RATIO (0.9-2.4); AST(SGOT) 23 U/L (15-37); Alanine Aminotransfer ALT/SGPT 13 U/L (13-56); Albumin, Serum 2.7 g/dL (3.2-5.0); Alkaline Phosphatase 52 U/L (45-117); Anion Gap 9 (5-15); BUN 10 mg/dL (7-18); BUN/Creat Ratio 13.1 RATIO (10-20); Calcium,Total 7.7 mg/dL (8.5-10.1); Chloride 109 mmol/L (98-107); Creatinine, Serum 0.76 mg/dL (0.55-1.02); EST Glomerular Filtration Rate 79 mL/min (>60); Est Glom Filt Rate - Afr Amer 95 mL/min (>60); Estimated Creatinine Clearance 54.99 ml/min; Globulin 3.1 g/dL (2.2-4.2); Glucose 127 mg/dL (74-106); Potassium 3.3 mmol/L (3.5-5.1); Protein, Total 5.8 g/dL (6.4-8.2); Sodium Level 139 mmol/L (136-145); T4 Free Direct 1.36 ng/dL (0.76-1.46); Thyroid Stim Hormone (TSH) 7.44 uIU/mL (0.358-3.74)
[2021-06-07] MEDS: Hydroxychloroquine 200 MG Tablet PO ×2 (07:58→21:27)
[2021-06-07] MEDS: Senna/Docusate Sodium 1 Tablet 2 TABLET PO ×2 (07:58→21:27)
[2021-06-07] MEDS: Metoprolol Tartrate 50 MG Tablet PO (07:58)
[2021-06-07] MEDS: Leflunomide 10 MG TABLET 20 MG PO (07:59)
[2021-06-07] MEDS: Loratadine 10 MG Tablet PO (07:59)
[2021-06-07] MEDS: 0.9% Normal Saline 1,000 ML 100 ML IV (10:07)
--- NOTE | 2021-06-07 10:12 | PN.HOSP_ITS ---
Subjective Subjective Follow-up on acute right hip fracture: Patient was seen and examined. Her pain is fairly controlled. She is going for surgery this afternoon. Denies any fever or chills or chest pain. Objective Data Objective Data Vital Signs: Vital Signs Temp Pulse Resp BP Pulse Ox 98.5 F 92 18 166/85 H 94 06/07/21 02:49 06/07/21 07:58 06/07/21 02:49 06/07/21 07:58 06/07/21 02:49 Oxygen Delivery Method Room Air Weight: 112.4 kg Body Mass Index (BMI) 35.5 Intake & Output: Intake and Output for Last 24 Hours 06/05/21 06/06/21 06/07/21 23:59 23:59 23:59 Intake Total 350 / 350 1400 / 1400 Output Total 450 / 450 1450 / 1450 Balance -100 / -100 -50 / -50 Lab / Micro Data Result Diagrams: 06/07/21 04:46 06/07/21 04:46 Labs: Laboratory Results - last 24 hr 06/06/21 13:50: WBC 6.1, RBC 4.88, Hgb 13.6, Hct 42.7, MCV 87.5, MCH 27.9, MCHC 31.9 L, RDW Std Deviation 44.6 H, RDW Coeff of Rita 13.9, Plt Count 212, MPV 10.3, Immature Gran % (Auto) 0.800, Neut % (Auto) 83.0 H, Lymph % (Auto) 9.3 L, [place] % (Auto) 5.7, Eos % (Auto) 0.7, Baso % (Auto) 0.5, Absolute Neuts (auto) 5.1, Absolute Lymphs (auto) 0.57 L, Nucleated RBC % 0 06/06/21 13:50: Sodium 141, Potassium 3.6, Chloride 110 H, Carbon Dioxide 25.0, Anion Gap 6, BUN 14, Creatinine 1.06 H, Estim Creat Clear Calc 51.88, Est GFR (MDRD) Af Amer 66, Est GFR (MDRD) Non-Af 54 L, BUN/Creatinine Ratio 13.2, Glucose 124 H, Calcium 8.2 L 06/06/21 15:02: Magnesium 2.0 06/06/21 16:06: POC Glucose 122 H 06/06/21 17:35: Urine Color Yellow, Urine Clarity Clear, Urine pH 6.0, Ur Specific [place] 1.015, Urine Protein Negative, Urine Glucose (UA) Normal, Urine Ketones 15 H, Urine Occult Blood Negative, Urine Nitrite Negative, Urine Bilirubin Negative, Urine Urobilinogen Normal, Ur Leukocyte Esterase Negative, U rine RBC 0 SEEN, Urine WBC 0 SEEN, Ur Squamous Epith Cells 0 SEEN, Urine Bacteria 0 SEEN, Urine Mucus 0 SEEN 06/06/21 21:26: POC Glucose 162 H 06/07/21 04:46: WBC 5.3, RBC 4.38, Hgb 12.2, Hct 37.5, MCV 85.6, MCH 27.9, MCHC 32.5, RDW Std Deviation 43.9, RDW Coeff of Rita 14.0, Plt Count 168, MPV 10.7, Immature Gran % (Auto) 0.400, Neut % (Auto) 74.6 H, Lymph % (Auto) 13.7 L, [place] % (Auto) 10.5 H, Eos % (Auto) 0.2, Baso % (Auto) 0.6, Absolute Neuts (auto) 4.0, Absolute Lymphs (auto) 0.73 L, Nucleated RBC % 0 06/07/21 04:46: Sodium 139, Potassium 3.3 L, Chloride 109 H, Carbon Dioxide 21.0, Anion Gap 9, BUN 10, Creatinine 0.76, Estim Creat Clear Calc 54.99, Est GFR (MDRD) Af Amer 95, Est GFR (MDRD) Non-Af 79, BUN/Creatinine Ratio 13.1, Glucose 127 H, Calcium 7.7 L, Total Bilirubin 0.70, AST 23, ALT 13, Alkaline Phosphatase 52, Total Protein 5.8 L, Albumin 2.7 L, Globulin 3.1, Albumin/Globulin Ratio 0.9, TSH 7.44 H, Free T4 1.36 06/07/21 04:46: Hemoglobin A1c 6.0 H 06/07/21 04:46: Blood Type A POSITIVE, Antibody Screen NEGATIVE 06/07/21 06:35: POC Glucose 149 H Micro: Microbiology 06/06/21 14:50 Nasal Secretion SARS-CoV-2 Antigen (Rapid) - Final Radiography Diagnostic Testing: Radiology Impression Chest X-Ray 06/06/21 14:15 IMPRESSION: Nonacute portable x-ray examination of the chest. Electronically Signed: Guille Herrera MD ([place]) at 14:37 EDT , Hip/Pelvis X-Ray 06/06/21 14:15 IMPRESSION: Right femoral neck fracture. Electronically Signed: Guille Herrera MD ([place]) at 14:38 EDT , Physical Exam Narrative Physical exam: General: Alert, Oriented x3, Cooperative, No apparent distress HEENT: Atraumatic Oral: Moist Mucosa Neck: Supple Lungs: Diminished to auscultation Cardiovascular: HS I+II, regular, no murmurs Abdomen: Bowel Sounds Present, Soft, Non Tender Extremities: Tenderness over the right hip, worse with range of motion. Assessment & Plan Assessment/Plan (1) Fracture of hip, right, closed: QUALIFIERS: Encounter type: initial encounter Qualified Code(s): S72.001A - Fracture of unspecified part of neck of right femur, initial encounter for closed fracture PLAN: 1. Acute right femoral neck fracture, traumatic, s/p fall Going for surgery today Orthopedic surgery consulted Continue with current pain regimen, PT/OT to evaluate and treat 2. Type II DM, diet controlled, HbA1c is 6.0 Continue to monitor 3. Hypokalemia, potassium 3.2, replaced, recheck in a.m. 4. Hypertension, uncontrolled, increase metoprolol from 25 mg daily to 50 mg daily, Continue hydralazine as needed 5. Rest of chronic medical conditions including hyperlipidemia/allergic rhinitis/hypothyroidism/rheumatoid arthritis/obesity Complicates care, will continue home medications for now 6. DVT PPx- SCDs Charges/Coding Visit Charges Inpatient E&M: 08685 Subs Hosp L2
[2021-06-07] MEDS: Potassium Chloride Oral Tablet 20 MEQ 40 MEQ PO (10:50)
--- NOTE | 2021-06-07 11:05 | CASEMGMT ---
CHANCE CORONADO Assessment: Face to Face with pt for initial transition planning/care coordination assessment. CHANCE CORONADO introduced self and role at [facility], pt voices understanding and consents to assessment. Pt is A/O x4 and answers all questions appropriately at this time. Pt lying in bed in no distress. Care providers, pharmacy, and demographics verified/updated. Admitting Dx: fall, R hip fx PCP:Lynnette Specialists:Tanya, rheum; Ana Laura, nephro; Knapic and Kacey, ortho Preferred Pharmacy: [facility] Retail Insurance: Pablo CURTIS Prescription Benefit: yes LW/HPOA: Pt denies having a LW/DPOA and denies need for info regarding AD. LNOK: Sriram Whittaker Jr, Living Arrangements: Pt lives with in a single story house with 2 steps to enter with handrails on both sides. Pt reports she was I in ADL's prior to fall. Transportation: Pt drives self and denies concerns with transportation. DME/HHC/SNF: Pt has canes, FWW but does not use AD now. Pt also has a walk in tub as well as a walk in shower with a long shower seat build in. Pt does not have BGM and states she does not check blood sugars, nor has ever been told to. Pt to have surgery today. Discussed available options with patient pending therapy post surgery including Home with HHC, Home with outpt therapy or s/t stay in SNF or IR for therapy. Pt states she has had 3 knee replacements and returned home after with outpt therapy. States her provided the transportation. He is now unable to provide transportation as he has cancer and receives chemo. Discussed hospital van transportation should pt need outpt therapy. Pt states no further concerns/needs. CM to follow. Advised pt to ask CM if any further question/concerns/needs arise, voices understanding. Pt Goal: TBD Plan: TBD post surgery therapy evals.
[2021-06-07 12:00] LABS: Bedside Glucose 142 mg/dL (74-106)
--- NOTE | 2021-06-07 14:14 | CONS.ORTHO ---
HPI Consult Data Date of Consult: 06/07/21 HPI Narrative Reason for Consultation: Right hip fracture HPI Narrative: KULDEEP AGUIRRE, is a 71 F who was admitted to [facility] through the emergency department all sustained at home. On 06/06/2021. Patient reports that she was vacuuming in her house when she bumped her elbow causing her to fall onto her right hip. Patient had immediate pain and was unable to weight-bear after the fall. Patient denies any other associated injury with this fall. Patient denies striking her head, denies any loss of consciousness. Patient denies any neck or back pain. Patient denies any injury to her upper extremities or left leg. Patient feels she is otherwise in good health. Patient does attempt to stay active, described as going out to dinner with her friends. She does live at home with her and cares for her home. Patient has had no previous hip pain prior to this fall. [facility] Medical History (Updated 06/06/21 @ 21:12 by Aleksandar Jenkins) Arthritis Back pain due to injury Back problem Breast lump Cellulitis of hand, right Chronic mental illness Goiter History of blood transfusion History of uterine fibroid HTN (hypertension) Kidney disease Kidney stones Neuropathy parathyroid thyroid Post-menopausal Rheumatoid arthritis Seasonal allergies Thyroid disease Home Medications hydroxychloroquine 200 mg PO BID 02/19/13 [History Last Taken 06/06/21] leflunomide 20 mg PO DAILY 02/19/13 [History Last Taken 06/06/21] metoprolol tartrate 25 mg PO DAILY 02/19/13 [History Last Taken 06/06/21] cholecalciferol (vitamin D3) 50 mcg (2,000 unit) tablet 2,000 unit PO DAILY tab 01/22/17 [History Last Taken 06/06/21] loratadine-pseudoephedrine ER 10 mg-240 mg tablet,extended [id number] 1 tab PO QAM PRN 01/22/17 [History Last Taken 06/05/21] tramadol 50 mg tablet 50 mg PO Q6H tab 01/22/17 [History Last Taken 06/06/21] levothyroxine 150 mcg PO DAILY 06/06/21 [History Last Taken 06/06/21] Allergy/AdvReac Type Severity Reaction Status Date / Time acetaminophen [From Vicodin] AdvReac Intermediate Vomiting Verified 06/06/21 13:13 amoxicillin trihydrate AdvReac Vomiting Verified 06/06/21 13:13 [From Augmentin] hydrocodone AdvReac Vomiting Verified 06/06/21 13:13 ANESTHESIA AdvReac Unknown Uncoded 06/06/21 13:13 Family History Mother Arthritis Cancer Sister Arthritis Diabetes Father Bleeding disorder Heart disease Hypertension Son Bleeding disorder Surgical History H/O lumpectomy H/O spinal fusion H/O thyroidectomy History of bilateral knee replacement History of spinal fusion History of tonsillectomy and adenoidectomy Social History (Updated 06/06/21 @ 15:[address] Roslyn Malik MD) household members: spouse Smoking Status: Never smoker alcohol intake: current alcohol intake frequency: a few times a month substance use type: does not use Vital Signs Vital Signs Vital Signs: 06/06/21 14:47 06/06/21 15:04 06/06/21 15:17 Temperature 97.3 F L 97.3 F L Temperature Source Temporal Temporal Pulse Rate 77 77 Pulse Strength Respiratory Rate 16 16 Respiratory Effort Respiratory Depth Respiratory Pattern Blood Pressure 153/88 H 153/88 H Blood Pressure Mean 109 109 Blood Pressure Source Blood Pressure Position Blood Pressure Location Pulse Ox 100 100 Oxygen Delivery Method Room Air Room Air 06/06/21 16:00 06/06/21 16:40 06/06/21 20:52 Temperature 98.0 F 98.2 F Temperature Source Oral Oral Pulse Rate 78 90 Pulse Strength Respiratory Rate 18 18 Respiratory Effort Normal Respiratory Depth Normal Respiratory Pattern Normal Blood Pressure 153/94 H 164/91 H Blood Pressure Mean 113 115 Blood Pressure Source Monitor Monitor Blood Pressure Position Semi-Fowlers Supine Blood Pressure Location Right Arm Right Arm Pulse Ox 96 98 Oxygen Delivery Method Room Air Room Air Room Air 06/06/21 20:56 06/06/21 21:45 06/07/21 01:08 Temperature Temperature Source Pulse Rate Pulse Strength Normal (2+) Respiratory Rate Respiratory Effort Normal Non-Labored Respiratory Depth Normal Respiratory Pattern Normal Blood Pressure Blood Pressure Mean Blood Pressure Source Blood Pressure Position Blood Pressure Location Pulse Ox 98 Oxygen Delivery Method Room Air Room Air 06/07/21 02:49 06/07/21 03:00 06/07/21 07:41 Temperature 98.5 F Temperature Source Oral Pulse Rate 93 93 Pulse Strength Normal (2+) Respiratory Rate 18 Respiratory Effort Respiratory Depth Respiratory Pattern Blood Pressure 168/82 H 168/82 H Blood Pressure Mean 110 Blood Pressure Source Monitor Blood Pressure Position Supine Blood Pressure Location Right Arm Pulse Ox 94 Oxygen Delivery Method Room Air 06/07/21 07:58 06/07/21 08:16 06/07/21 08:45 Temperature 98.7 F Temperature Source Oral Pulse Rate 92 92 Pulse Strength Respiratory Rate 18 Respiratory Effort Normal Non-Labored Respiratory Depth Normal Respiratory Pattern Normal Blood Pressure 166/85 H 166/85 H Blood Pressure Mean 112 Blood Pressure Source Monitor Blood Pressure Position Semi-Fowlers Blood Pressure Location Left Arm Pulse Ox 94 Oxygen Delivery Method Room Air Room Air 06/07/21 13:15 Temperature 98.2 F Temperature Source Oral Pulse Rate 76 Pulse Strength Respiratory Rate 18 Respiratory Effort Respiratory Depth Respiratory Pattern Blood Pressure 163/112 H Blood Pressure Mean 129 Blood Pressure Source Monitor Blood Pressure Position Semi-Fowlers Blood Pressure Location Right Arm Pulse Ox 98 Oxygen Delivery Method Room Air Weight Weight: 112.4 kg Body Mass Index (BMI) 35.5 Physical Exam Narrative Upon exam I found patient lying comfortably in the bed. Her at her side. Patient alert and oriented to person place and time. No respiratory distress speaking in full sentences. Cranial nerves II through XII are grossly intact. There was no signs of trauma to the head face and neck. Patient has good range of motion of the upper extremities including the bilateral shoulders, elbows, wrist and hands. Patient equal under water assistant strength. Neurovascular is otherwise intact. Good muscle tone and strength. Patient did have a small abrasion over the right olecranon region. This area was nonerythematous with no obvious ecchymosis. No signs of trauma to the abdomen. Patient has good range of motion of the left hip knee and ankle. Patient does have a well-healed incision from prior previous a left total knee arthroplasty. Patient has no calf pain. Neurovascular is otherwise intact. Exam of the right leg, patient has no obvious soft tissue trauma mild ecchymosis over the right greater trochanteric region. Patient has no gross deformity. I did not attempt any flexion extension of the right knee due to severe hip pain and x-ray showing a femoral neck fracture. Patient has a well-healed incision on the right knee from previous right total knee arthroplasty. Patient has no calf tenderness. Patient has good plantar flexion dorsiflexion of the right foot. Neurovascular is otherwise intact. Const oriented x3 HEENT normocephalic Eyes PERRL Cardio regular rate GI soft to palpation and non-tender Extremity normal capillary refill, no clubbing, cyanosis or edema and no calf tenderness Skin no rashes or lesions noted Neuro CN's II-XII intact bilaterally Psych mental status grossly normal and affect normal Lab / Micro Data Result Diagrams: 06/07/21 04:46 06/07/21 04:46 Labs: Laboratory Results - last 24 hr 06/06/21 13:50: WBC 6.1, RBC 4.88, Hgb 13.6, Hct 42.7, MCV 87.5, MCH 27.9, MCHC 31.9 L, RDW Std Deviation 44.6 H, RDW Coeff of Rita 13.9, Plt Count 212, MPV 10.3, Immature Gran % (Auto) 0.800, Neut % (Auto) 83.0 H, Lymph % (Auto) 9.3 L, [place] % (Auto) 5.7, Eos % (Auto) 0.7, Baso % (Auto) 0.5, Absolute Neuts (auto) 5.1, Absolute Lymphs (auto) 0.57 L, Nucleated RBC % 0 06/06/21 15:02: Magnesium 2.0 06/06/21 16:06: POC Glucose 122 H 06/06/21 17:35: Urine Color Yellow, Urine Clarity Clear, Urine pH 6.0, Ur Specific [place] 1.015, Urine Protein Negative, Urine Glucose (UA) Normal, Urine Ketones 15 H, Urine Occult Blood Negative, Urine Nitrite Negative, Urine Bilirubin Negative, Urine Urobilinogen Normal, Ur Leukocyte Esterase Negative, Urine RBC 0 SEEN, Urine WBC 0 SEEN, Ur Squamous Epith Cells 0 SEEN, Urine Bacteria 0 SEEN, Urine Mucus 0 SEEN 06/06/21 21:26: POC Glucose 162 H 06/07/21 04:46: WBC 5.3, RBC 4.38, Hgb 12.2, Hct 37.5, MCV 85.6, MCH 27.9, MCHC 32.5, RDW Std Deviation 43.9, RDW Coeff of Rita 14.0, Plt Count 168, MPV 10.7, Immature Gran % (Auto) 0.400, Neut % (Auto) 74.6 H, Lymph % (Auto) 13.7 L, [place] % (Auto) 10.5 H, Eos % (Auto) 0.2, Baso % (Auto) 0.6, Absolute Neuts (auto) 4.0, Absolute Lymphs (auto) 0.73 L, Nucleated RBC % 0 06/07/21 04:46: Sodium 139, Potassium 3.3 L, Chloride 109 H, Carbon Dioxide 21.0, Anion Gap 9, BUN 10, Creatinine 0.76, Estim Creat Clear Calc 54.99, Est GFR (MDRD) Af Amer 95, Est GFR (MDRD) Non-Af 79, BUN/Creatinine Ratio 13.1, Glucose 127 H, Calcium 7.7 L, Total Bilirubin 0.70, AST 23, ALT 13, Alkaline Phosphatase 52, Total Protein 5.8 L, Albumin 2.7 L, Globulin 3.1, Albumin/Globulin Ratio 0.9, TSH 7.44 H, Free T4 1.36 06/07/21 04:46: Hemoglobin A1c 6.0 H 06/07/21 04:46: Blood Type A POSITIVE, Antibody Screen NEGATIVE 06/07/21 06:35: POC Glucose 149 H 06/07/21 11:46: POC Glucose 142 H Micro: Microbiology 06/06/21 14:50 Nasal Secretion SARS-CoV-2 Antigen (Rapid) - Final Radiology Impression Chest X-Ray 06/06/21 14:15 IMPRESSION: Nonacute portable x-ray examination of the chest. Electronically Signed: Guille Herrera MD ([place]) at 14:37 EDT , Hip/Pelvis X-Ray 06/06/21 14:15 IMPRESSION: Right femoral neck fracture. Electronically Signed: Guille Herrera MD ([place]) at 14:38 EDT , Assessment & Plan Assessment/Plan (1) Fracture of hip, right, closed: QUALIFIERS: Encounter type: initial encounter Qualified Code(s): S72.001A - Fracture of unspecified part of neck of right femur, initial encounter for closed fracture PLAN: 1. Continue all pain medications as prescribed 2. Remain n.p.o. 3. Patient will be taken to surgery for a right total hip arthroplasty versus hemiarthroplasty. 4. Continue SCDs bilateral lower extremities 5. Continue ice to right hip
--- NOTE | 2021-06-07 15:03 | CHAPLAIN ---
Type of Pastoral Visit _x__ Initial Visit ___ Follow-up Visit ___ On-call Visit ___ General Patient Visit ___ Spiritual Assessment ___ Family Conference ___ Bereavement ___ Rapid Response ___ Code Blue ___ Other (describe below) Pastoral Care Referral From _x_ Patient ___ Family ___ Nurse ___ Physician ___ Dyeing Machine Feeder ___ Automotive Parts Person ___ Other (describe below) Sacrament/Intervention _x__ Active listening ___ Anointing ___ Yazidi ___ Bereavement ___ Communion _x__ Kristy exploration ___ _x__ Life review _x__ Prayer ___ Reconciliation ___ Sacrament of Sick _x__ Supportive presence ___ Wedding ___ Other (describe below) Pastoral Comments patient will be having surgery today and she asked this pai gow dealer to sit with her for a time and talk; pt gives some current life situation and speaks of concern for her spouse who has several serious health needs; pt gives life review and perspective on her kristy and values; pt is of the [employer] kristy; pt is given time to express self and to receive prayer for her comfort
[2021-06-07 15:11] LABS: Bedside Glucose 111 mg/dL (74-106)
[2021-06-07] MEDS: Cefazolin 2 GM in 0.9% Normal Saline 100 ML IV (16:03)
[2021-06-07] MEDS: TXA 1000mg in NS100 100ml (IVPB at Closure) 660 MG IV (16:18)
[2021-06-07] MEDS: TXA 1000mg in NS100 100ml (IVPB at Incision) 660 MG IV (17:22)
--- NOTE | 2021-06-07 17:22 | OP.PCM_ITS ---
Problems Associated Problem List Diagnoses (1) Fracture of hip, right, closed: Operative Report Date of Procedure: 06/07/21 Preoperative diagnosis: Right hip displaced femoral neck fracture Postoperative diagnosis: Same Operation: Right hip cemented hemiarthroplasty Surgeon: Dr. Bradley Reyes MD Funeral Counselor: Alexandr Barbour PA-C Anesthesia: General Anesthesiologist; Dr. Burton Special medications: 2 gm IV [Ancef], IV Tranexamic acid IV x 2 EBL: 200 Fluid in: 100 Specimen: Bone Indications for surgery : Patient is a (71) -year-old female that fell yesterday fracturing the involved hip. Appropriate informed consent was obtained and signed. Appropriate medical workup was performed preoperatively and patient was deemed safe for surgery by the anesthesia department automotive parts counter assistantDIEUDONNE was utilized throughout the entire procedure. They were vital in helping with patient positioning, holding of retractors, exposing the tissues adequately for safe completion of the procedure including cutting of the bone, helping cashier ticket selling appropriate alignment and sizing of the components, implantation of the components, as well as wound closure, bandage application, and safe patient transfer. Without medical research assistant, physician speech language pathology assistant, surgical time would have been significantly increased, and surgical outcome would have been less optimal. Operative findings: Patient had displaced comminuted femoral neck fracture. We used a Amanda Accolade C size number 727 degree neck angle cemented stem. Bipolar 50 mm femoral head with a +4 neck length. This reproduced there anatomy nicely. Clinically good leg lengths were noted. Good hip stability through range of motion with no undue pistoning. Standard wound closure in layers, followed by humera, followed by Mepilex dressing Details of procedure: Patient was taken to the operating room and transferred to the operating table. Given appropriate anesthetic agent by that department. Patient was then rolled into a lateral decubitus position with the involved painful hip up in the air. Appropriate timeouts had been performed. Hip had been appropriately marked with my initials. Padded anterior and posterior position was utilized. Axillary roll placed. DIANNA hose and SCDs on the nonoperative limb utilized throughout the procedure. Operative lower extremity was prepped padded and draped in the usual orthopedic sterile fashion for the procedure. I injected the pain relieving solution in the standard sterile technique of the soft tissues of the hip carefully. Incision was made curving over the tip of the greater trochanter posteriorly. Full thickness skin flaps are raised down on the fascia justice. Fascia justice was opened in length with our incision. Charnley self-retaining hip retractor was carefully placed by the surgeon. Leg was appropriately rotated by the speech language pathology assistant. Retractor was used to lift the abductors anteriorly to visualize the piriformis tendon and external rotators. Piriformis tendon and external rotators released off the greater trochanter with the Bovie. Tagging suture was placed in each of these separately. We then split the tissue superior to the piriformis tendon through capsule and onto the pelvis. Acetabular labrum was preserved. Retractors were carefully placed around the femoral neck. Displaced unstable femoral neck fracture identified. cutting guide was utilized to map out the proposed cut approximately 1 fingerbreadth above the lesser trochanter. This femoral neck cut was carried out with a saw. Fractured femoral head removed from the acetabulum and measured and inspected. Appropriate trial was utilized. A proximal femoral elevator utilized. We used a sharp awl entering down inside the bone of the proximal femur. Utilized the [employer] cutting osteotome the proximal lateral greater trochanteric region. The fragment removed. Broaching was then done from the smallest broach, upto the appropriate size. Good stability was confirmed. We then trialed the construct with a standard neck length and appropriate sized femoral head. We were happy with the construct. Good stability to flexion, rotation. At this point trials removed. 2 full batches of tobramycin antibiotic bone cement were mixed. 2 sponges were placed in the acetabulum we prepared the canal with brushing. Cement restrictor was placed down to the appropriate depth. It was thoroughly irrigated clean and dry. When the cement was as the appropriate texture, we pressurized cement down in the femoral canal. The appropriate size stem then hammered into the proximal femur and seated down to a similar position as the trial had. Excess bone cement removed. Stem was held still while cement fully hardened. Pain relieving solution was injected while this was occurring. The cement was fully hardened, sponges were removed from the acetabulum. We now again trialed and appropriate neck length decided upon. It was then opened. Now impacted the appropriate sized femoral head, neck construct onto the clean dried trunion. Was noted to be stable. Hip was inspected, and joint was reduced for a final time. Good hip stability and leg lengths noted. This was then irrigated with saline, Irrisept, and sterile Betadine and cleaned. Next the remainder of the pain relieving solution was injected carefully throughout the soft tissues of the hip joint. Closure was carried out with a combination of #1 Vicryl repairing the hip capsule as well as piriformis tendon and external rotators to bone, running #2 strata fix in the fascia justice, followed by mid layer #1 Vicryl with #1 strata fix running. Next running 0 strata fix, followed by skin humera, Xeroform, Mepilex dressing. We placed DIANNA hose and SCD on the operative leg. Patient awoken from the anesthetic and transferred back to room bed in recovery room in satisfactory condition. Patient will be admitted to the hospital. Hospitalist service will continue to manage the medical issues. We will plan weightbearing as tolerated. Aspirin will be used for DVT prevention. We do plan to use doxycycline 100 mg twice daily for 2 weeks for infection prevention. hopeful discharge to home or ECF in 2-3 days. This note was generated with [employer] dictation software. It may contain incorrect words, spelling, and punctuation that were not noted in checking the note before signing.
[2021-06-07 18:47] LABS: Bedside Glucose 129 mg/dL (74-106)
[2021-06-07] MEDS: Ondansetron 4 MG/2 ML Vial IV (20:22)
[2021-06-07] MEDS: Insulin Lispro 100 UNIT/ML INSULN.PEN SC (21:33)
[2021-06-07] MEDS: 0.9% Normal Saline 1,000 ML 75 ML IV (21:33)
[2021-06-07 21:50] LABS: Bedside Glucose 178 mg/dL (74-106)
[2021-06-08] VITALS (8 sets, daily range): BP systolic 123–137; BP diastolic 61–85; PULSE 84–99; RESP 18; TEMP 36.3–37.5; O2SAT 92–97
[2021-06-08] MEDS: Cefazolin 1 GM/50 ML BAG IV ×2 (00:37→08:34)
[2021-06-08 06:11] LABS: Hematocrit 37.6 % (37-47); Hemoglobin 12.1 g/dL (12.0-15.0); Mean Corp Hgb Conc 32.2 g/dL (32-36); Mean Corpuscular Hgb 27.6 pg (27.0-32.0); Mean Corpuscular Volume 85.8 fL (81-99); Mean Platelet Vol. 10.6 fl (6.2-12.0); Platelet Count 204 K/mm3 (150-450); RBC Distribution Width CV 14.1 % (11.6-14.6); Red Blood Count 4.38 M/mm3 (4.2-5.4); White Blood Count 9.8 K/mm3 (4.4-11.0)
[2021-06-08] MEDS: Levothyroxine 150 MCG Tablet PO (06:14)
[2021-06-08 06:26] LABS: Bedside Glucose 127 mg/dL (74-106)
[2021-06-08 06:52] LABS: Anion Gap 7 (5-15); BUN 13 mg/dL (7-18); BUN/Creat Ratio 14.6 RATIO (10-20); Calcium,Total 7.8 mg/dL (8.5-10.1); Chloride 110 mmol/L (98-107); Creatinine, Serum 0.89 mg/dL (0.55-1.02); EST Glomerular Filtration Rate 66 mL/min (>60); Est Glom Filt Rate - Afr Amer 80 mL/min (>60); Estimated Creatinine Clearance 61.79 ml/min; Glucose 127 mg/dL (74-106); Potassium 4.3 mmol/L (3.5-5.1); Sodium Level 138 mmol/L (136-145)
--- NOTE | 2021-06-08 07:23 | RAD_ITS ---
STUDY: X-RAY - PELVIS AND RIGHT HIP REASON FOR EXAM: Female, 71 years old. Status post right total hip arthroplasty. Follow-up. TECHNIQUE: 3 views of the pelvis and hip. COMPARISON: 06/06/2021. FINDINGS: There is a non-specific bowel gas pattern. Normal visualized soft tissue structures. Stable fusion at L4-5. Mild arthrosis of both sacroiliac joints unchanged. Normal bilateral superior and inferior pubic rami. Mild arthrosis at the symphysis pubis. Normal bilateral ischial tuberosities. Right total hip arthroplasty in anatomic alignment with postsurgical changes. No complications.. RAD/HIP, UNI W/ Pelvis 2-3 Views IMPRESSION: Right total hip arthroplasty in anatomic alignment without complications. No acute finding. Electronically Signed: Hany Huber MD at 9:17 EDT ,
[2021-06-08] MEDS: Aspirin 81 MG TAB.CHEW PO (08:51)
[2021-06-08] MEDS: Hydroxychloroquine 200 MG Tablet PO ×2 (08:51→16:48)
[2021-06-08] MEDS: Senna/Docusate Sodium 1 Tablet 2 TABLET PO (08:51)
[2021-06-08] MEDS: Leflunomide 10 MG TABLET 20 MG PO (08:51)
[2021-06-08] MEDS: Metoprolol Tartrate 50 MG Tablet PO (08:52)
--- NOTE | 2021-06-08 09:34 | PN.ORTHO_ITS ---
Subjective Subjective The patient was sitting in bed upon examination. Patient denies any chest pain, shortness of breath, dizziness, lightheadedness, nausea or vomiting, or calf pain. Pain is controlled on medications. No adverse overnight events. Patient has not had any physical therapy or been out of bed this morning yet. She came up later last night after surgery. She states her hip feels much better this morning. Her pain has been controlled on medications. She has normally taken tramadol from the outboard motor tester Dr Arredondo. She is currently on Tylenol and tramadol. Patient also reports that her has been diagnosed with cancer and is currently getting chemotherapy treatment. She has no ability for transportation and case management will be on board for setting up home health physical therapy versus outpatient therapy with transportation from [facility]. Objective Data Objective Data Vital Signs: Vital Signs Temp Pulse Resp BP Pulse Ox 99.5 F H 92 18 136/85 H 95 06/08/21 08:40 06/08/21 08:52 06/08/21 08:40 06/08/21 08:52 06/08/21 08:40 Oxygen Delivery Method Room Air Weight: 110.4 kg Body Mass Index (BMI) 35.5 Intake & Output: Intake and Output for Last 24 Hours 06/06/21 06/07/21 06/08/21 23:59 23:59 23:59 Intake Total 350 / 350 2601.67 / 2601.67 350 / 350 Output Total 450 / 450 2729 / 2729 400 / 400 Balance -100 / -100 -127.33 / -127.33 -50 / -50 Lab / Micro Data Result Diagrams: 06/08/21 05:53 06/08/21 05:53 Labs: Laboratory Results - last 24 hr 06/07/21 11:46: POC Glucose 142 H 06/07/21 15:00: POC Glucose 111 H 06/07/21 18:41: POC Glucose 129 H 06/07/21 21:32: POC Glucose 178 H 06/08/21 05:53: WBC 9.8, RBC 4.38, Hgb 12.1, Hct 37.6, MCV 85.8, MCH 27.6, MCHC 32.2, RDW Std Deviation 44.0 H, RDW Coeff of Rita 14.1, Plt Count 204, MPV 10.6 06/08/21 05:53: Sodium 138, Potassium 4.3, Chloride 110 H, Carbon Dioxide 21.0, Anion Gap 7, BUN 13, Creatinine 0.89, Estim Creat Clear Calc 61.79, Est GFR (MDRD) Af Amer 80, Est GFR (MDRD) Non-Af 66, BUN/Creatinine Ratio 14.6, Glucose 127 H, Calcium 7.8 L 06/08/21 06:11: POC Glucose 127 H Micro: Microbiology 06/06/21 14:50 Nasal Secretion SARS-CoV-2 Antigen (Rapid) - Final Radiography Diagnostic Testing: Radiology Impression Hip/Pelvis X-Ray 06/08/21 07:23 IMPRESSION: Right total hip arthroplasty in anatomic alignment without complications. No acute finding. Electronically Signed: Hany Huber MD at 9:17 EDT , Physical Exam Narrative Vital signs stable and afebrile. Right hip is soft and supple DIANNA hose and SCDs are on bilaterally Patient is able to plantarflex and dorsiflex actively. Sensation is intact to light touch to saphenous, sural, superficial and deep peroneal, and tibial distribution. Dressing is clean dry and intact. Negative Homans bilaterally, negative signs and symptoms of DVT. Const alert, oriented x3 and no apparent distress Assessment & Plan Assessment/Plan (1) History of right hip hemiarthroplasty: PLAN: 1. S/P right hip hemiarthroplasty posterior approach POD #1 2. Continue Pain Medications: Tylenol and tramadol 3. DVT Prophylaxis: Aspirin 81 mg twice daily was discontinued. Patient reports that she is unable to use nonsteroidal anti-inflammatories and has always avoided aspirin. Looking back at her previous surgeries patient for both total joint arthroplasties was placed on Xarelto. She will remain on this for 4 weeks postoperatively for DVT prophylaxis. 4. PT/OT: Weightbearing as tolerated with walker. Continue postoperative posterior hip dislocation precautions for 3 months postoperatively 5. H & H: 12.1/37.6, asymptomatic. Postoperative anemia secondary to acute blood loss from surgery without any intra operative complications. 6. Continue antibiotics for 2 weeks postoperatively: Patient is treated by outboard motor tester in which she takes Arava. She is at increased risk for postoperative infection. Previous surgeries patient stopped this medication 1 week prior to and 2 weeks following surgery until incisions well-healed. I did recommend to her that she hold this medication for 2 weeks until seen by Dr. Bradley Reyes. She voiced understanding and agreement. I also explained to the patient that she is at a greater risk for sun sensitivity on the doxycycline and to take appropriate precautions. 7. Encouraged Incentive Spirometry 8. Continue postoperative medical management per medicine: Case was discussed with hospitalist. At this time patient is orthopedically stable. We discussed DVT prophylaxis and switching over to Xarelto. Order was placed. Also placed order for doxycycline 100 mg twice daily for 2 weeks postoperatively. 9. Disposition: Orthopedically stable, okay for discharge when medically stable. Patient will continue with above pain medications including Tylenol and tramadol. She will keep the Mepilex dressing on for 5 to 7 days postoperatively. She can shower and get this area wet. Once removal of the Mepilex dressing only placed gentle soap and water over the incision. No submerging underwater for 6 weeks postoperatively. We will have her use the Xarelto for DVT prophylaxis due to inability to take nonsteroidal anti- inflammatories. Patient will also be placed on doxycycline for 2 weeks postoperatively due to increased risk for infection in which she is currently on Arava. She will stop this for 2 weeks following surgery until we are able to assess incision and healing. Patient should schedule follow-up with Dr. Bradley Reyes in 10 to 12 days for x-rays and incision check. I did discuss with case management and at this time patient may require home health physical therapy for the first 2 weeks. Her is currently being treated for cancer with chemo and she has no way for driving/transportation. Patient will also require ou tpatient physical therapy at some point with transportation from [facility]. Upon discharge she will contact her office with any concerns or questions with regards to her hip I have reviewed the [place] Automated Rx Reporting System (OARRS) report for this patient for refill pattern and other prescriber involvement as part of the appropriate surveillance for the provision of acute and chronic controlled medications. The report was requested and reviewed on the date of this entry and was considered in the prescribing process.
--- NOTE | 2021-06-08 10:21 | PCM.DC ---
Discharge Instructions Diet Discharge Diet: Low fat / Low cholesterol, 1800 Calorie Control Diet and 2000 mg Sodium Diet Activity Discharge Activity: Return to Normal Activity Follow Up Care Test Results: Test results from this visit will be discussed in further detail at your follow-up appointment, if applicable. Discharge Plan Admission Admit Date/Time: 06/06/21 14:48 Primary Reason for Your Visit: Acute right hip fracture Attending Provider: Tiny Rose Primary Care Provider: Billy Church Consulting Providers: Bradley Reyes Instructions Additional Instructions / Restrictions: Weightbearing as tolerated with walker. Continue postoperative posterior hip dislocation precautions for 3 months postoperatively. Remove Mepilex dressing 5 to 7 days postoperatively. Okay to shower but no submerging underwater for 6 weeks postoperatively. Continue doxycycline for 2 weeks postoperatively for infection prevention. Stop the Arava for 2 weeks following surgery. Take note of changes to your BP medications. Discharge Orders/Prescriptions Prescriptions: New doxycycline monohydrate 100 mg Capsule 100 mg PO BID 14 Days Qty: 28 RF: 0 metoprolol tartrate 50 mg Tablet 50 mg PO DAILY 30 Days Qty: 30 RF: 0 Xarelto 10 mg Tablet 10 mg PO DINNER 30 Days Qty: 30 RF: 0 Continued loratadine-pseudoephedrine [Claritin-D 24 Hour] 10-240 mg tablet extended release 24 hr 1 tab PO QAM PRN (Reason: Sinus Symptoms) RF: 0 tramadol 50 mg tablet 50 mg PO Q6H RF: 0 hydroxychloroquine 200 MG tablet 200 mg PO BID RF: 0 cholecalciferol (vitamin D3) 2,000 UNIT tablet 2,000 unit PO DAILY RF: 0 levothyroxine 150 mcg tablet 150 mcg PO DAILY RF: 0 Held leflunomide 20 MG tablet 20 mg PO DAILY RF: 0 Hold Instructions: Resume on 06/22/21. Discontinued metoprolol tartrate 50 MG tablet 25 mg PO DAILY RF: 0 Referrals / Follow Up: Bradley Reyes MD [STAFF PHYSICIAN] - Billy Church MD [Primary Care Provider] - Disposition Disposition (needs filled in before D/C Order can be placed): Home, Self Care
[2021-06-08] MEDS: Insulin Lispro 100 UNIT/ML INSULN.PEN SC ×2 (11:30→16:48)
--- NOTE | 2021-06-08 11:35 | PCM.PN.HOSP ---
Subjective Subjective Follow-up on acute right hip fracture: Patient was seen and examined. Denied any new complaint. Hip pain is fairly controlled. Denied any chest pain or shortness of breath. Objective Data Objective Data Vital Signs: Vital Signs Temp Pulse Resp BP Pulse Ox 99.5 F H 92 18 136/85 H 95 06/08/21 08:40 06/08/21 08:52 06/08/21 08:40 06/08/21 08:52 06/08/21 11:18 Oxygen Delivery Method Room Air Weight: 110.4 kg Body Mass Index (BMI) 35.5 Intake & Output: Intake and Output for Last 24 Hours 06/06/21 06/07/21 06/08/21 23:59 23:59 23:59 Intake Total 350 / 350 2601.67 / 2601.67 1346.25 / 1346.25 Output Total 450 / 450 2729 / 2729 600 / 600 Balance -100 / -100 -127.33 / -127.33 746.25 / 746.25 Lab / Micro Data Result Diagrams: 06/08/21 05:53 06/08/21 05:53 Labs: Laboratory Results - last 24 hr 06/07/21 11:46: POC Glucose 142 H 06/07/21 15:00: POC Glucose 111 H 06/07/21 18:41: POC Glucose 129 H 06/07/21 21:32: POC Glucose 178 H 06/08/21 05:53: WBC 9.8, RBC 4.38, Hgb 12.1, Hct 37.6, MCV 85.8, MCH 27.6, MCHC 32.2, RDW Std Deviation 44.0 H, RDW Coeff of Rita 14.1, Plt Count 204, MPV 10.6 06/08/21 05:53: Sodium 138, Potassium 4.3, Chloride 110 H, Carbon Dioxide 21.0, Anion Gap 7, BUN 13, Creatinine 0.89, Estim Creat Clear Calc 61.79, Est GFR (MDRD) Af Amer 80, Est GFR (MDRD) Non-Af 66, BUN/Creatinine Ratio 14.6, Glucose 127 H, Calcium 7.8 L 06/08/21 06:11: POC Glucose 127 H Micro: Microbiology 06/06/21 14:50 Nasal Secretion SARS-CoV-2 Antigen (Rapid) - Final Radiography Diagnostic Testing: Radiology Impression Hip/Pelvis X-Ray 06/08/21 07:23 IMPRESSION: Right total hip arthroplasty in anatomic alignment without complications. No acute finding. Electronically Signed: Hany Huber MD at 9:17 EDT , Physical Exam Narrative Physical exam: General: Alert, Oriented x3, Cooperative, No apparent distress HEENT: Atraumatic Oral: Moist Mucosa Neck: Supple Lungs: Diminished to auscultation Cardiovascular: HS I+II, regular, no murmurs Abdomen: Bowel Sounds Present, Soft, Non Tender Extremities: Tenderness over the right hip, worse with range of motion. Assessment & Plan Assessment/Plan (1) Fracture of hip, right, closed: QUALIFIERS: Encounter type: initial encounter Qualified Code(s): S72.001A - Fracture of unspecified part of neck of right femur, initial encounter for closed fracture PLAN: 1. POD#1 s/p right hip cemented hemiarthroplasty for acute right femoral neck fracture, traumatic, s/p fall Pain is fairly controlled, continue on Tylenol, Tramadol, morphine prn Orthopedic surgery consulted Patient is on doxycycline for 2 weeks per orthopedics Her leflunomide has been put on hold Continue with PT/OT to evaluate and treat 2. Type II DM, diet controlled, HbA1c is 6.0 Continue to monitor 3. Hypokalemia, replaced, recheck in a.m. 4. Hypertension, controlled, continue on metoprolol 50mg daily Continue hydralazine as needed 5. Rest of chronic medical conditions including hyperlipidemia/allergic rhinitis/hypothyroidism/rheumatoid arthritis/obesity Complicates care, will continue home medications for now 6. DVT PPx- SCDs Charges/Coding Visit Charges Inpatient E&M: 47046 Subs Hosp L2
[2021-06-08 11:40] LABS: Bedside Glucose 178 mg/dL (74-106)
--- NOTE | 2021-06-08 11:48 | CASEMGMT ---
Social Work Note SW updated that PT/OT are recommending SNF/RU for pt. SW in to speak with pt. SW introduced self and role at [facility]. Pt is alert and orientated, engages in conversation appropriately. SW spoke with pt about PT/OT recommendation of SNF/RU. Patient was provided a list of SNF/RU providers including quality and resource use data and consistent with the patient?s preferred geographic region, medical needs, and insurance network. Pt preferred provider is [facility]. Pt states that she would like to speak to her first before going over to to make him aware of discharge plans. Pt states that her is supposed to be coming to [facility] today. SW informed pt that does have a bed available, will confirm they can accept pt. Pt states understanding. ISAÍAS placed a call to Aleena with [facility] and provided referral. [facility] to review referral. Plan: [facility] pending acceptance Tiana Duval OPTICAL WORKER, [employer]
--- NOTE | 2021-06-08 13:53 | PCM.DC.SUM ---
Providers Date of Admission: 06/06/21 Date of Discharge: 06/08/21 Primary Care Physician: Dr. Billy Church MD Consultations 06/06/21 15:48 Consult: Orthopedics Routine Consulting Provider: Bradley Reyes Reason for Consult: Fall, R hip fracture EMERGENT Consult: No MD Notified: Yes Date Notified: 06/06/21 Time Notified: 14:52 Method of Notification: per ED. Reason For Visit: FALL, RIGHT HIP FRACTURE Diagnosis Discharge Diagnosis (1) Fracture of hip, right, closed: Status: Acute Code(s): S72.001A - Fracture of unspecified part of neck of right femur, initial encounter for closed fracture Qualifiers: Encounter type: initial encounter Qualified Code(s): S72.001A - Fracture of unspecified part of neck of right femur, initial encounter for closed fracture (2) Hypertension: Status: Chronic Code(s): I10 - Essential (primary) hypertension Medications at Discharge Home Medications hydroxychloroquine 200 mg PO BID 02/19/13 leflunomide 20 mg PO DAILY 02/19/13 cholecalciferol (vitamin D3) 50 mcg (2,000 unit) tablet 2,000 unit PO DAILY tab 01/22/17 loratadine-pseudoephedrine ER 10 mg-240 mg tablet,extended [id number] 1 tab PO QAM PRN 01/22/17 tramadol 50 mg tablet 50 mg PO Q6H tab 01/22/17 levothyroxine 150 mcg PO DAILY 06/06/21 doxycycline monohydrate 100 mg PO BID 14 Days #28 cap 06/08/21 metoprolol tartrate 50 mg PO DAILY 30 Days #30 tab 06/08/21 rivaroxaban [Xarelto] 10 mg PO DINNER 30 Days #30 tab 06/08/21 Hospital Course Operations None and total hip replacement (right) Procedures None Summary of Care Provided Minutes Spent on Discharge: 35 Hospital Course: 71-year-old female with past medical history of rheumatoid arthritis, on hydroxychloroquine and leflunomide who comes in after a fall and sustained right hip fracture. Patient was vacuuming when she attempted to go around her chair to the dresser and unfortunately fell down. X-ray of the hip and pelvis showed fracture of the right hip. She underwent right hip cemented hemiarthroplasty on 06/07/21. Postoperatively, patient was seen by PT and OT and skilled for discharge to acute rehab. Orthopedics recommended the patient be on doxycycline 100 mg p.o. twice daily for 2 weeks. They recommended her leflunomide be on hold for 2 weeks. She was also started on Xarelto. In this hospital stay, patient had elevated blood pressure. Her metoprolol 25 mg p.o. daily was increased to 50 mg p.o. daily. She needs to be followed with orthopedics in 2 weeks. She also needs to see her primary care doctor in 1 week. Physical Exam Narrative Physical exam: General: Alert, Oriented x3, Cooperative, No apparent distress HEENT: Atraumatic Oral: Moist Mucosa Neck: Supple Lungs: Diminished to auscultation Cardiovascular: HS I+II, regular, no murmurs Abdomen: Bowel Sounds Present, Soft, Non Tender Extremities: Tenderness over the right hip, worse with range of motion. Weight / BMI Weight Weight: 110.4 kg Body Mass Index (BMI) 35.5 ABG / Lab / Microbiology Data Result Diagrams: 06/08/21 05:53 06/08/21 05:53 Laboratory: Laboratory Results - last 24 hr 06/07/21 15:00: POC Glucose 111 H 06/07/21 18:41: POC Glucose 129 H 06/07/21 21:32: POC Glucose 178 H 06/08/21 05:53: WBC 9.8, RBC 4.38, Hgb 12.1, Hct 37.6, MCV 85.8, MCH 27.6, MCHC 32.2, RDW Std Deviation 44.0 H, RDW Coeff of Rita 14.1, Plt Count 204, MPV 10.6 06/08/21 05:53: Sodium 138, Potassium 4.3, Chloride 110 H, Carbon Dioxide 21.0, Anion Gap 7, BUN 13, Creatinine 0.89, Estim Creat Clear Calc 61.79, Est GFR (MDRD) Af Amer 80, Est GFR (MDRD) Non-Af 66, BUN/Creatinine Ratio 14.6, Glucose 127 H, Calcium 7.8 L 06/08/21 06:11: POC Glucose 127 H 06/08/21 11:29: POC Glucose 178 H Microbiology: Microbiology 06/06/21 14:50 Nasal Secretion SARS-CoV-2 Antigen (Rapid) - Final Radiography Diagnostic Testing: Radiology Impression Hip/Pelvis X-Ray 06/08/21 07:23 IMPRESSION: Right total hip arthroplasty in anatomic alignment without complications. No acute finding. Electronically Signed: Hany Huber MD at 9:17 EDT , D/C Instructions Discharge Diet: Low fat / Low cholesterol, 1800 Calorie Control Diet and 2000 mg Sodium Diet Meaningful Use Info Meaningful Use Diagnoses (Choose all that apply): None applicable Discharge Plan Admission Admit Date/Time: 06/06/21 14:48 Primary Reason for Your Visit: Acute right hip fracture Attending Provider: Tiny Rose Primary Care Provider: Billy Church Consulting Providers: Bradley Reyes Instructions Additional Instructions / Restrictions: Weightbearing as tolerated with walker. Continue postoperative posterior hip dislocation precautions for 3 months postoperatively. Remove Mepilex dressing 5 to 7 days postoperatively. Okay to shower but no submerging underwater for 6 weeks postoperatively. Continue doxycycline for 2 weeks postoperatively for infection prevention. Stop the Arava for 2 weeks following surgery. Take note of changes to your BP medications. Discharge Orders/Prescriptions Prescriptions: New doxycycline monohydrate 100 mg Capsule 100 mg PO BID 14 Days Qty: 28 RF: 0 metoprolol tartrate 50 mg Tablet 50 mg PO DAILY 30 Days Qty: 30 RF: 0 Xarelto 10 mg Tablet 10 mg PO DINNER 30 Days Qty: 30 RF: 0 Continued loratadine-pseudoephedrine [Claritin-D 24 Hour] 10-240 mg tablet extended release 24 hr 1 tab PO QAM PRN (Reason: Sinus Symptoms) RF: 0 tramadol 50 mg tablet 50 mg PO Q6H RF: 0 hydroxychloroquine 200 MG tablet 200 mg PO BID RF: 0 cholecalciferol (vitamin D3) 2,000 UNIT tablet 2,000 unit PO DAILY RF: 0 levothyroxine 150 mcg tablet 150 mcg PO DAILY RF: 0 Held leflunomide 20 MG tablet 20 mg PO DAILY RF: 0 Hold Instructions: Resume on 06/22/21. Discontinued metoprolol tartrate 50 MG tablet 25 mg PO DAILY RF: 0 Referrals / Follow Up: Bradley Reyes MD [STAFF PHYSICIAN] - Within 2 Weeks Billy Church MD [Primary Care Provider] - Disposition Disposition (needs filled in before D/C Order can be placed): Home, Self Care Charges/Coding Visit Charges Inpatient E&M: 27912 Disch Hosp
[2021-06-08 14:28] LABS: AST(SGOT) 28 U/L (15-37); Alanine Aminotransfer ALT/SGPT 16 U/L (13-56); Albumin, Serum 2.5 g/dL (3.2-5.0); Alkaline Phosphatase 50 U/L (45-117); Bilirubin, Direct 0.16 mg/dL (0.00-0.30); Globulin 3.1 g/dL (2.2-4.2); Protein, Total 5.6 g/dL (6.4-8.2)
--- NOTE | 2021-06-08 15:10 | CASEMGMT ---
Addendum entered by Tiana Duval 06/08/21 16:12: SW aware that Ortho is requesting pt follow up with Dr. Bradley Reyes in 10 to 12 days. ISAÍAS provided handoff to Brenna HOPKINS with this information. Addendum entered by Tiana Duval 06/08/21 16:06: SW updated that pt and pt's Sriram had questions regarding pt's insurance. SW in to speak with pt and pt's Sriram. SW informed pt and Sriram that pt's insurance will cover RU and then when pt leaves it will also cover discharge needs including outpatient therapy as pt mentioned going to [facility]. SW informed pt and Sriram that there will be a SW on that will assist with pt's discharge from . Pt and Sriram state understanding, denied additional needs or concerns at this time. Addendum entered by Tiana Duval 06/08/21 15:39: While this worker was in pt's room. Pt did state that her was coming to [facility] today and that he is capable of taking care of himself while she is at . Pt states that her just cannot drive due to exhaustion from receiving chemotherapy. Original Note: Social Work Note SW received call from Aleena with stating is able to accept pt today. SW updated physician. Pt to discharge to today. SW in to speak with pt. SW updated pt that she will discharge to today. Pt states she has talked to her multiple times today and he is aware of pt's plan. Pt with multiple questions regarding RU. SW answered questions. Pt agreeable to discharge to today. Plan: RU today Tiana Duval ENGINE ASSEMBLER, TALENT ACQUISITION ASSISTANT
[2021-06-08] MEDS: traMADol 50 MG Tablet PO (15:59)
[2021-06-08] MEDS: Rivaroxaban 10 MG Tablet PO (16:47)
--- NOTE | 2021-06-08 17:02 | NURSING ---
Report called to Luz in rehab.
[2021-06-09 02:31] LABS: Bedside Glucose 153 mg/dL (74-106)
== END 2021-06-08 18:05 | DRG 522 ==
LOC: ED 14:43 → MS3 15:08
PROVIDERS: Orthopaedic Surgery; Admitting Provider Family Medicine; Emergency Provider Emergency Medicine; PCP Family Medicine; Visit Provider Internal Medicine
PROC: 0SRR019 Replacement of Right Hip Joint, Femoral Surface with Metal Synthetic Substitute, Cemented, Open Approach (ICD-10-PCS; CPT 27125; principal; 2021-06-07 15:10)
DX: S72.001A Fracture of unspecified part of neck of right femur, initial encounter for closed fracture (principal); E11.40 Type 2 diabetes mellitus with diabetic neuropathy, unspecified; M06.9 Rheumatoid arthritis, unspecified; W01.0XXA Fall on same level from slipping, tripping and stumbling without subsequent striking against object, initial encounter; E78.5 Hyperlipidemia, unspecified; S50.311A Abrasion of right elbow, initial encounter; I10 Essential (primary) hypertension; E87.6 Hypokalemia; E89.0 Postprocedural hypothyroidism; Z96.653 Presence of artificial knee joint, bilateral; Y93.E3 Activity, vacuuming; Y99.9 Unspecified external cause status; Y92.009 Unspecified place in unspecified non-institutional (private) residence as the place of occurrence of the external cause; Z79.899 Other long term (current) drug therapy; Z79.890 Hormone replacement therapy; E66.9 Obesity, unspecified; Z68.35 Body mass index [BMI] 35.0-35.9, adult
CPT/HCPCS: 36415; 71045; 73502; 80048; 80053; 80076; 81001; 82962; 83036; 83735; 84439; 84443; 85025; 85027; 86850; 86900; 86901; 87811; 88305; 88311; 93005; 97162; 97166; 99251; 99285; C1776; J7030; A4216; G0463; J2405

== ENCOUNTER 2021-06-08 18:18 | Inpatient (IN) | payer MEDICARE, BC, SELFPAY ==
[2021-06-08 18:28] VITALS: BP 107/56; PULSE 92; RESP 14; TEMP 36.8; O2SAT 98
[2021-06-08 20:00] VITALS: BMI 35.2
[2021-06-08] MEDS: traMADol 50 MG Tablet PO (20:59)
[2021-06-08] MEDS: Senna/Docusate Sodium 1 Tablet 2 TABLET PO (21:00)
[2021-06-08] MEDS: Doxycycline 100 MG CAPSULE PO (21:00)
[2021-06-08 21:10] VITALS: BP 107/56; PULSE 92; RESP 14; TEMP 36.8; O2SAT 98
[2021-06-08 21:50] LABS: Bedside Glucose 151 mg/dL (74-106)
[2021-06-08 22:35] VITALS: O2SAT 93
[2021-06-09] MEDS: traMADol 50 MG Tablet PO ×4 (03:18→21:44)
[2021-06-09] MEDS: Levothyroxine 150 MCG Tablet PO (06:21)
[2021-06-09 07:28] VITALS: BP 121/61; PULSE 95; RESP 16; TEMP 36.9; O2SAT 96
[2021-06-09] MEDS: Cholecalciferol (VIT D3) 25 MCG TABLET (1,000 UNITS) 50 MCG PO (08:27)
[2021-06-09 08:28] VITALS: PULSE 74
[2021-06-09] MEDS: Hydroxychloroquine 200 MG Tablet PO ×2 (08:28→18:12)
[2021-06-09] MEDS: Doxycycline 100 MG CAPSULE PO ×2 (08:28→21:42)
[2021-06-09] MEDS: Metoprolol Tartrate 50 MG Tablet PO (08:28)
[2021-06-09] MEDS: Senna/Docusate Sodium 1 Tablet 2 TABLET PO ×2 (08:36→21:43)
--- NOTE | 2021-06-09 09:12 | HP.PCM_ITS ---
HPI - General General Date of Admission: 06/08/21 HPI Narrative KULDEEP AGUIRRE, is a 71 YO F with a PMH of hypertension, hyperlipidemia, diabetes mellitus type 2, obesity, allergic rhinitis, rheumatoid arthritis, hypothyroidism and osteoarthritis who presented to the [facility] emergency department on 06/06/2021 after a fall at home. She complained of right hip pain. X-ray revealed a right femoral neck fracture and she was admitted to the hospital. Consult was obtained with Dr. Bradley Reyes and the patient was taken to surgery on 06/07/2021 for a right hip cemented hemiarthroplasty. She was transferred to the acute inpt rehab unit at [facility] on 06/08/21 for 3 hours of therapy daily to restore function/independence at or near her level prior to the fracture. All lab and notes from her recent admission were reviewed. Current vital signs are temp 98.5, pulse rate 95, blood pressure 121/61, 96% on room air Last bowel movement was 06/06/2021 Total intake since admission to rehab is listed as 100 cc. She was straight cath'd for 100 last night when she did not void all night long. Weight today is 245 pounds and 13 ounces. All lab from yesterday was personally reviewed. Hemoglobin is 12.1, down from 13.6 at admission to the hospital. Platelets and white blood cell count are within normal limits. BUN was 13 and the creatinine was 0.89 which is down from 1.06 at admission to the hospital. Hemoglobin A1c was 6. Calcium corrected for hypoalbuminemia is within normal limits. TSH was high at 7.44 in the hospital but the T4 is normal at 1.36. Blood sugars have all been less than 200 with no hypoglycemia. Doxycycline 04/10 doses have been given. Arava is on hold for 2 weeks to decrease risk of infection due to immunosuppression. She is on Xarelto 10 mg daily for DVT prophylaxis. [facility] Medical History (Updated 06/09/21 @ 11:[address] Haydee Brady DO) Back pain due to injury Breast lump Chronic mental illness Goiter History of blood transfusion History of uterine fibroid HTN (hypertension) Kidney disease Kidney stones Neuropathy Obesity (BMI 30-39.9) Osteoarthritis Post-menopausal Rheumatoid arthritis Seasonal allergies Thyroid disease Home Medications hydroxychloroquine 200 mg PO BID 02/19/13 [History Last Taken 06/06/21] leflunomide 20 mg PO DAILY 02/19/13 [History Last Taken 06/06/21] cholecalciferol (vitamin D3) 50 mcg (2,000 unit) tablet 2,000 unit PO DAILY tab 01/22/17 [History Last Taken 06/06/21] loratadine-pseudoephedrine ER 10 mg-240 mg tablet,extended [id number] 1 tab PO QAM PRN 01/22/17 [History Last Taken 06/05/21] tramadol 50 mg tablet 50 mg PO Q6H tab 01/22/17 [History Last Taken 06/06/21] levothyroxine 150 mcg PO DAILY 06/06/21 [History Last Taken 06/06/21] doxycycline monohydrate 100 mg PO BID 06/08/21 [History Last Taken Unknown] metoprolol tartrate 50 mg PO DAILY 06/08/21 [History Last Taken Unknown] rivaroxaban [Xarelto] 10 mg PO DINNER 06/08/21 [History Last Taken Unknown] Allergy/AdvReac Type Severity Reaction Status Date / Time acetaminophen [From Vicodin] AdvReac Intermediate Vomiting Verified 06/06/21 13:13 amoxicillin trihydrate AdvReac Vomiting Verified 06/06/21 13:13 [From Augmentin] hydrocodone AdvReac Vomiting Verified 06/06/21 13:13 ANESTHESIA AdvReac Unknown Uncoded 06/06/21 13:13 Family History Mother Arthritis Cancer Sister Arthritis Diabetes Father Bleeding disorder Heart disease Hypertension Son Bleeding disorder Surgical History (Updated 06/09/21 @ 11:[address] Haydee Brady DO) H/O lumpectomy H/O spinal fusion H/O thyroidectomy History of bilateral knee replacement History of spinal fusion History of tonsillectomy and adenoidectomy Social History household members: spouse Smoking Status: Never smoker alcohol intake: current alcohol intake frequency: a few times a month substance use type: does not use ROS Constitutional Constitutional: Reports change in weight and other Details: She has lost 65 lbs intentionally over the past year. ; Denies anorexia, chills, fatigue, fever(s), night sweats or weakness Eyes Eyes: Denies blurry vision, change in vision, eye pain or loss of vision ENT HEENT: Reports sore throat and other Details: Her throat is a little sore since the surgery.......not sore enough to want a throat lozenge. ; Denies abnormal hearing, dysphagia, headache(s), hearing loss or nasal congestion Cardiovascular Cardiovascular: Denies chest pain, dyspnea on exertion, edema, lightheadedness, orthopnea, palpitations, paroxysmal nocturnal dyspnea or syncope Respiratory/Chest Respiratory/Chest: Denies cough, dyspnea, shortness of breath at rest, shortness of breath with exertion or wheezing Gastrointestinal Gastrointestinal: Reports constipation, nausea and other Details: The nausea happens when she has exerted herself doing therapy. She has not had a BM since 06/06 but, she is on our bowel protocol now and she does not feel constipated or bloated. ; Denies abdominal pain, diarrhea, dyspepsia, hematemesis, hematochezia or vomiting Genitourinary Genitourinary: Denies dysuria, hematuria, nocturia, urinary frequency, urinary hesitancy, urinary incontinence or urinary urgency Musculoskeletal Musculoskeletal: Reports back pain, joint pain and other Details: Has had L4-5 fusion in the past. ; Denies joint swelling or neck pain Integumentary Integumentary: Reports photosensitivity and other Details: She is on Plaquenil which sensitizes you to the sun. ; Denies alopecia, jaundice, non-healing lesions, pruritus or rash Neurologic Neurologic: Denies confusion, disequilibrium, dizziness, focal weakness, headache(s), paresthesias, seizures or tremor(s) Psychiatric Psychiatric: Denies anxiety, depression, homicidal ideation or suicidal ideation Endocrine Endocrinology: Denies change in body appearance, polydipsia or polyuria Hematologic/Lymphatic Hematologic/Lymphatic: Denies easy bleeding, easy bruising or lymphadenopathy Allergic/Immunologic Allergic/Immunologic: Denies rhinitis, eczemia or asthma Vital Signs Vital Signs Vital Signs: 06/08/21 18:28 06/08/21 21:10 06/08/21 21:23 Temperature 98.3 F 98.3 F Temperature Source Temporal Temporal Pulse Rate 92 92 Respiratory Rate 14 14 Blood Pressure 107/56 L 107/56 L Blood Pressure Mean 73 73 Blood Pressure Source Monitor Monitor Blood Pressure Position Semi-Fowlers Semi-Fowlers Blood Pressure Location Right Arm Right Arm Pulse Ox 98 98 Oxygen Delivery Method Room Air Room Air Room Air 06/08/21 22:35 06/09/21 07:28 06/09/21 08:28 Temperature 98.5 F Temperature Source Temporal Pulse Rate 95 74 Respiratory Rate 16 Blood Pressure 121/61 H Blood Pressure Mean 81 Blood Pressure Source Monitor Blood Pressure Position Semi-Fowlers Blood Pressure Location Right Arm Pulse Ox 93 96 Oxygen Delivery Method Room Air Room Air Weight Weight: 245 lb 13.047 oz Body Mass Index (BMI) 35.2 Physical Exam Const alert, oriented x3 and no apparent distress Constitutional Narrative: Sitting in the recliner at the bedside. Pleasant and talkative, making good eye contact. General Appearance: cooperative, comfortable and other Tells me that her pain is well controlled HEENT HEENT Narrative: MM are very dry and she is trying to increase her fluid intake today. Eyes PERRL, EOMs intact bilaterally, conjunctivae normal and no scleral icterus General Eye: normal appearance of both eyes Neck no lymphadenopathy, supple and no carotid bruits Chest Chest: symmetrical chest wall rise Resp normal respiratory effort, normal air movement, no use of accessory muscles and clear to auscultation bilaterally Effort and Inspection: able to speak in complete sentences Cardio regular rate, regular rhythm, S1 normal heart sound, S2 normal heart sound, no murmurs, no rub and no gallops Jugular Venous Distention: Negative for JVD GI normal to inspection, nondistended, normoactive bowel sounds, soft to palpation and non-tender GI Narrative: No guarding with palpation. No bladder distention. Extremity no calf tenderness and no pedal edema Extremity Narrative: The ankles have cherrie enlargement from the RA BL but no edema. Peripheral Pulses: Yes radial pulses present and popliteal pulses present Skin General Skin Exam: no breakdown Rashes: no rashes Wound Narrative: Incision R hip can not be examined at this time because the silver dressing is not due to come off for a few days yet. There is no erythema around the bandage and no fresh DC on the bandage......has a little dried serosanguineous DC. Some swelling around the bandage. Neuro oriented x3, CN's II-XII intact bilaterally, moves all extremities, no focal motor deficits and no sensory deficits noted Psych mental status grossly normal, thought process normal, cooperative, affect normal, speech normal and activity/motor behavior normal Appearance: grossly normal and appropriate Activity / Motor Behavior: appropriate eye contact Mood & Affect: euthymic mood Attention / Concentration: attention grossly intact Memory / Cognition: memory grossly intact and cognition grossly impaired Insight: insight good Judgement: judgement good Results Lab / Micro Data Labs: Laboratory Results - last 24 hr 06/08/21 20:30: POC Glucose 151 H Assessment & Plan Assessment/Plan (1) Fall at home: (2) Fracture of hip, right, closed: QUALIFIERS: Encounter type: initial encounter Qualified Code(s): S72.001A - Fracture of unspecified part of neck of right femur, initial encounter for closed fracture (3) History of right hip hemiarthroplasty: (4) Abrasion of right elbow: (5) Osteoarthritis: (6) Hypertension: (7) Type II diabetes mellitus: (8) Hypothyroidism: (9) Rheumatoid arthritis: (10) Obesity (BMI 30-39.9): PLAN: PLAN PT for gait stability OT for ADL's Analgesics as needed - Tramadol works for her and does not cause any adverse SE's so will continue Tramadol Bowel protocol Fall precautions Assess for Anxiety/Depression GI prophylaxis not necessary at this time. She has no history of peptic ulcer disease and denies nausea, epigastric pain and reflux DVT prophylaxis with Xarelto 10 mg p.o. daily for 30 days from the time of surgery Follow up with Dr. Bradley Reyes and her PCP following DC from [facility] All lab done in the hospital and all the notes were reviewed. She is a little foggy yet from anesthesia and pain medication - I told her this is understandable and since her body is 71 YO and she is moving slower so are her kidneys and liver and meds hang around longer and this will pass in another day or so. she was very sharp when I was talking with her. Unit Exclusion This patient is an acute care inpatient being housed in the excluded unit because of capacity issues related to the disaster or emergency.: Yes Charges/Coding Visit Charges Inpatient E&M: 69044 Init Hosp L3
--- NOTE | 2021-06-09 10:43 | CASEMGMT ---
Social Work Met with patient for initial assessment. Introduced self and role. Pt confirmed code status full code. Denies wanting to complete AD. Pt wishes to have as primary contact. Pt has a son that lives locally and a dtr that lives in [place]. Explained Medicare benefit and Team meetings. The goal is for pt to return home with and PLOF. Pt was primary caregiver for . was diagnosed with cancer a year ago and is currently getting chemo and radiation. has f/u appt in June to determine the success of treatment. Pt reports gets severe exhaustion, which puts all of the IADLs on pt. Explored pt's feelings and support systems. Validated feelings of aggravation, per pt. Pt has neighbors, friends, episcopalian, ladies from book club and family for support. Denies counseling, states I could never find the extra time. SW offered ongoing emotional and verbal support. Pt appreciative. SW to continue to following. Birgit Howe, LAV CREWMAN REFINERY OPERATOR ALKYLATION
[2021-06-09] MEDS: Nystatin Powder 15gm Bottle 1 APPLIC TOPICAL ×2 (11:03→21:43)
[2021-06-09] MEDS: Rivaroxaban 10 MG Tablet PO (18:12)
[2021-06-09 20:27] VITALS: BP 130/67; PULSE 89; RESP 16; TEMP 36.4; O2SAT 95
[2021-06-10] MEDS: Magnesium Hydroxide 30 ML UDC PO (04:25)
[2021-06-10] MEDS: 0.9% Saline Lock 10 ML Syringe IV ×2 (04:26→17:05)
[2021-06-10] MEDS: Nystatin Powder 15gm Bottle 1 APPLIC TOPICAL ×2 (04:26→22:02)
[2021-06-10] MEDS: Levothyroxine 150 MCG Tablet PO (06:22)
[2021-06-10 07:44] VITALS: PULSE 70
[2021-06-10] MEDS: Metoprolol Tartrate 50 MG Tablet PO (07:44)
[2021-06-10] MEDS: traMADol 50 MG Tablet PO ×3 (07:44→22:02)
[2021-06-10] MEDS: Hydroxychloroquine 200 MG Tablet PO ×2 (07:44→16:46)
[2021-06-10] MEDS: Cholecalciferol (VIT D3) 25 MCG TABLET (1,000 UNITS) 50 MCG PO (07:45)
[2021-06-10] MEDS: Doxycycline 100 MG CAPSULE PO ×2 (07:45→22:02)
[2021-06-10 08:00] VITALS: BP 133/65; PULSE 90; RESP 18; TEMP 36.8; O2SAT 97
[2021-06-10] MEDS: Rivaroxaban 10 MG Tablet PO (16:45)
[2021-06-10 22:00] VITALS: BP 125/57; PULSE 88; RESP 14; TEMP 36.8; O2SAT 96
--- NOTE | 2021-06-11 04:15 | NURSING ---
REVIEWED AND AGREE WITH QA CONSULTANT'S FUNCTIONAL ASSESSMENT AND HANDOFF CHARTING.
[2021-06-11] MEDS: 0.9% Saline Lock 10 ML Syringe IV ×2 (05:30→17:17)
[2021-06-11] MEDS: Levothyroxine 150 MCG Tablet PO (05:30)
[2021-06-11] MEDS: Nystatin Powder 15gm Bottle 1 APPLIC TOPICAL ×2 (05:31→23:01)
[2021-06-11] MEDS: traMADol 50 MG Tablet PO ×3 (05:35→23:02)
[2021-06-11 08:30] VITALS: BP 106/70; PULSE 90; RESP 18; TEMP 36.6; O2SAT 97
[2021-06-11 08:55] VITALS: PULSE 71
[2021-06-11] MEDS: Cholecalciferol (VIT D3) 25 MCG TABLET (1,000 UNITS) 50 MCG PO (08:55)
[2021-06-11] MEDS: Doxycycline 100 MG CAPSULE PO ×2 (08:55→23:01)
[2021-06-11] MEDS: Hydroxychloroquine 200 MG Tablet PO ×2 (08:55→17:13)
[2021-06-11] MEDS: Metoprolol Tartrate 50 MG Tablet PO (08:55)
[2021-06-11] MEDS: Rivaroxaban 10 MG Tablet PO (17:13)
[2021-06-11 19:32] VITALS: BP 128/70; PULSE 92; RESP 17; TEMP 36.7; O2SAT 98
[2021-06-12] MEDS: 0.9% Saline Lock 10 ML Syringe IV (06:34)
[2021-06-12] MEDS: traMADol 50 MG Tablet PO ×3 (06:34→21:00)
[2021-06-12] MEDS: Nystatin Powder 15gm Bottle 1 APPLIC TOPICAL ×2 (06:35→21:01)
[2021-06-12] MEDS: Levothyroxine 150 MCG Tablet PO (06:36)
[2021-06-12 07:30] VITALS: BP 127/65; PULSE 90; RESP 18; TEMP 36.7; O2SAT 95
[2021-06-12 09:04] VITALS: PULSE 80
[2021-06-12] MEDS: Cholecalciferol (VIT D3) 25 MCG TABLET (1,000 UNITS) 50 MCG PO (09:04)
[2021-06-12] MEDS: Doxycycline 100 MG CAPSULE PO ×2 (09:04→21:00)
[2021-06-12] MEDS: Metoprolol Tartrate 50 MG Tablet PO (09:04)
[2021-06-12] MEDS: Hydroxychloroquine 200 MG Tablet PO ×2 (09:05→17:19)
--- NOTE | 2021-06-12 11:01 | PCM.RU.PYE ---
Admission Information Primary Diagnosis:: Debility post Hip fracture/R hemiarthroplasty Status Changes from Prescreening?: No changes Identified Actual Problem List:: Skin Intergrity, Pain, ALteration in Cmfrt, Bowel, Constipation, Alteration in Sleep, Mobility Impaired, Self Care Deficit and Alteration-Leisure Activ. Potential Problem List:: DVT, Bleeding, Infection, UTI, Aspiration, Falls, Skin Integrity and Depression Risk of Complications DVT: DIANNA Hose and - (Xarelto) Bleeding: Monitor Lab Values, Nursing to Teach Precautions for anti-coagulation therapy., Wound, if applicable, to be assessed every shift. and Stroke patients assessed for lethargy or change in status. Infection: Clinical Staff to Monitor for S/S of infection: and S/S of infection include fever, redness, warmth, etc. Urinary Tract Infection: Monitor for frequency, burning, discomfort, or incontinence. and Nursing will obtain urine sample for urinalysis and C&S when ordered. Aspiration: Clinical staff will monitor for coughing, drooling, congestion., Speech will evaluate swallowing and dsyphasia. and Nursing will monitor patient swallowing during meals. Falls: Patient will be evaluated for Fall Precautions and Patient will be placed on Fall Precautions as indicated per protocol. Skin Breakdown: Nursing will assess skin daily using assessment tool. and Nursing will place on Skin Breakdown Precautions as indicated. Pain: Clinical staff will assess patient's pain level per protocol., Medications will be given, if needed, and the pain level reassessed. and Other methods: Massage, distraction, decrease stimulus, etc. used PRN. Plan of Care Patient requires physician specializing in physical medicine and rehab oversight to provide close medical supervision of rehab issues including: Pain Management, Sleep Problems, Bowel and Bladder, Medical and co-morbidity Management, DVT prophylaxis, Rehabilitation Leadership and Coordination of treatment team Patient needs Physical Therapy: For a minimum of 1 hour and At least 5 out of 7 days Patient needs Physical Therapy to improve:: Mobility, Strengthening, Transfers, Stretching, ROM, Endurance, Stairs, Gait and Balance Patient needs Occupational Therapy: For a minimum of 1 hour and At least 5 out of 7 days Patient needs Occupational Therapy to improve ADL's incl.: Eating, Grooming, Bathing, Dressing, Toileting, Toilet transfers, Community Reintegration, Higher functioning activities, Household tasks, Adaptive Equipment, Splinting and Other activities as determined Patient requires 24/ Rehabilitation Nursing for: Pain Issues, Identifying and preventing risk factors, Monitoring and reporting current medical conditions, Assisting with ambulation, transfer, and all ADL's, Teaching patients about disease process and medications, Family teaching, Providing safe environment, Bowel and Bladder Issues, Skin integrity and Medication Management Patient needs Systems Integration Engineer/ Case Management for: Discharge Planning, Arranging Home Equipment or Services and Family Interventions Patient needs Dietary and Nutrition Services for: Adequate Nutrition, Nutritional Supplements and Nutritional Education Goals Patient will remain: free from falls Patient will perform bed mobility at: MOD I level of assist. Patient will complete transfers from bed to chair at: MOD I level of assist. Patient will ambulate: - (150 feet with a wheeled walker at standby assist on various surfaces.) Patient will complete upper body dressing at: MOD I level of assist. Patient will complete lower body dressing at: - (Minimal assistance from her for donning her shoes and ankle brace.) Patient will complete toileting at: MOD I level of assist. Patient will perform bathing at: Standby Assist. Patient will complete home management skills at: MOD I level of assist. Patient will achieve: - (2 steps with 2 handrails at contact-guard assist to allow entrance to her home and 1 curb step.) Patient will have pain level of: of 3 or less Patient's skin will: remain intact Patient will receive: adequate nutrition.
--- NOTE | 2021-06-12 11:02 | PCM.PROGNOTE ---
Subjective Subjective Afebrile VSS Maintaining appropriate oxygen saturation on RA Oral intake is good Discussed with nursing - no problems that need addressed Reviewed the PT/OT/ST notes Medication list reviewed. The blood sugar record was reviewed and all blood sugars are less than 180. Fasting blood sugars are in the 120s. Lora tells me that her pain is adequately controlled. She denies chest pain, shortness of breath, palpitations, lightheadedness, nausea/vomiting/abdominal pain, dysuria. She tells me that she slept well. Objective Data Objective Data Vital Signs: Vital Signs Temp Pulse Resp BP Pulse Ox 98.0 F 80 18 127/65 H 95 06/12/21 07:30 06/12/21 09:04 06/12/21 07:30 06/12/21 07:30 06/12/21 07:30 Oxygen Delivery Method Room Air Weight: 245 lb 13.047 oz Body Mass Index (BMI) 35.2 Intake & Output: Intake and Output for Last 24 Hours 06/10/21 06/11/21 06/12/21 23:59 23:59 23:59 Intake Total 1500 / 1500 720 / 720 240 / 240 Output Total 500 / 500 Balance 1000 / 1000 720 / 720 240 / 240 Physical Exam Const alert, oriented x3 and no apparent distress General Appearance: cooperative, well kempt and well developed Resp no use of accessory muscles and clear to auscultation bilaterally Effort and Inspection: able to speak in complete sentences Cardio regular rate, regular rhythm and no gallops GI normal to inspection, nondistended, normoactive bowel sounds, soft to palpation and non-tender Extremity no calf tenderness Skin General Skin Exam: no breakdown Rashes: no rashes Assessment & Plan Assessment/Plan (1) Physical debility: PLAN: Continue PT/OT. (2) Fall at home: (3) Fracture of hip, right, closed: QUALIFIERS: Encounter type: initial encounter Qualified Code(s): S72.001A - Fracture of unspecified part of neck of right femur, initial encounter for closed fracture (4) History of right hip hemiarthroplasty: PLAN: We will follow-up with Dr. Bradley Reyes in the office post discharge (5) Rheumatoid arthritis: PLAN: Arava is being held for 2 weeks and she will be taking doxycycline 100 mg twice daily for 10 days to help decrease risk of postoperative infection in a patient who is immunocompromised secondary to rheumatoid arthritis and immunotherapy. (6) Type II diabetes mellitus: PLAN: Continue the current medication she is well controlled. Charges/Coding Visit Charges Inpatient E&M: 76296 Subs Hosp L1
[2021-06-12] MEDS: Rivaroxaban 10 MG Tablet PO (17:18)
[2021-06-12 22:36] VITALS: BP 141/85; PULSE 75; RESP 16; TEMP 36.2; O2SAT 96
--- NOTE | 2021-06-13 02:37 | NURSING ---
Reviewed and agree with ROLL LINE OPERATOR documentation and assessment charting.
[2021-06-13] MEDS: Levothyroxine 150 MCG Tablet PO (04:58)
[2021-06-13] MEDS: 0.9% Saline Lock 10 ML Syringe IV (04:59)
[2021-06-13] MEDS: Nystatin Powder 15gm Bottle 1 APPLIC TOPICAL ×2 (06:16→22:07)
[2021-06-13 07:35] VITALS: BP 153/86; PULSE 88; RESP 16; TEMP 36.6; O2SAT 97
[2021-06-13] MEDS: Hydroxychloroquine 200 MG Tablet PO ×2 (07:39→17:22)
[2021-06-13] MEDS: traMADol 50 MG Tablet PO ×3 (07:39→21:42)
[2021-06-13 08:19] VITALS: BP 153/86; PULSE 88
[2021-06-13] MEDS: Cholecalciferol (VIT D3) 25 MCG TABLET (1,000 UNITS) 50 MCG PO (08:19)
[2021-06-13] MEDS: Metoprolol Tartrate 50 MG Tablet PO (08:19)
[2021-06-13] MEDS: Doxycycline 100 MG CAPSULE PO ×2 (08:19→21:42)
--- NOTE | 2021-06-13 13:22 | NURSING ---
Mepilex removed this AM, No drainage noted on bandage. Small amount of dry blood noted. Hany in tact, no redness noted.
--- NOTE | 2021-06-13 16:13 | CASEMGMT ---
Social Work IDT met with patient and for Team meeting. Discussed patient's progress in PT/OT and nursing. Pt progressing well. Explained Medicare approved 14 days with EDC 06/22. The goal is for pt to return home with . can assist with simply LE tasks for pt to maintain precautions. SW to continue to follow for DC planning. Birgit Howe, BOULEVARD GLASSWARE REPLACER SOFTWARE ENGINEERING ASSOCIATE MANAGER
[2021-06-13] MEDS: Rivaroxaban 10 MG Tablet PO (17:22)
--- NOTE | 2021-06-13 18:45 | PN_ITS ---
Subjective Subjective oLra was seen on team rounds today. Her Cesar was present in the room for rounds. 10 of 28 doses of doxycycline given. Afebrile VSS-blood pressure is a little high this morning but had previously been within goal. We will continue to monitor and no changes to the present drug regimen for now. Maintaining appropriate oxygen saturation on RA Oral intake is good Discussed with nursing - She had to have a BM last night and was afraid she would be incontinent and so she got out of bed and used a chair to push in front of her for balance. she was incontinent and this is what she was afraid of........she understands she is not to get up without assistance while in rehab until 48 hours prior to DC when she will be made MIKO in her room during the day. Reviewed the PT/OT/ST notes - she knows 3/3 posterior hip precautions. Medication list reviewed. Leflunomide is on hold until 06/22/2021. Blood sugars are consistently less than 180 so we will change the Accu-Cheks to twice daily, before breakfast and before supper. Sleeping well. Brain fog has resolved. She denies chest pain, shortness of breath, calf pain, dysuria, lightheadedness, cephalgia, nausea/vomiting. She tells me her pain is adequately controlled. She took only 2 doses of tramadol yesterday. Objective Data Objective Data Vital Signs: Vital Signs Temp Pulse Resp BP Pulse Ox 97.8 F 88 16 153/86 H 97 06/13/21 07:35 06/13/21 08:19 06/13/21 07:35 06/13/21 08:19 06/13/21 07:35 Oxygen Delivery Method Room Air Weight: 245 lb 13.047 oz Body Mass Index (BMI) 35.2 Intake & Output: Intake and Output for Last 24 Hours 06/11/21 06/12/21 06/13/21 23:59 23:59 23:59 Intake Total 720 / 720 480 / 480 1402 / 1402 Balance 720 / 720 480 / 480 1402 / 1402 Physical Exam Const alert, oriented x3 and no apparent distress General Appearance: cooperative Eyes Eyes Narrative: No scleral icterus or conjunctival injection. No discharge from her eyes. Neck supple Resp normal respiratory effort and clear to auscultation bilaterally Resp Narrative: Able to speak in complete sentences. Not tachypneic. Cardio regular rate, regular rhythm and no gallops Peripheral Pulses: pulses 2+ throughout GI normal to inspection, nondistended, normoactive bowel sounds, soft to palpation and non-tender GI Narrative: She had a bowel movement today. Extremity Extremity Narrative: I examined her feet today along with OT. She had corrective shoes when she was a child and she has a brace on the left ankle. the R ankle has significant bony enlargement and foot is excessively pronated. This likely contributes to ankle/foot pain/knee pain, hip pain and back pain. She does not wear corrective shoes now and she has not seen a agriculture science teacher in a long time. Will get her an appt at the foot and ankle clinic post DC. She would like to seen Dr. Walker. She told me later that once she was aware of the over pronation she made some corrections and it did decrease the foot pain. Skin Skin Narrative: Incision is intact with no erythema or DC. General Skin Exam: no breakdown Rashes: no rashes Assessment & Plan Assessment/Plan (1) Physical debility: (2) Fracture of hip, right, closed: QUALIFIERS: Encounter type: initial encounter Qualified Code(s): S72.001A - Fracture of unspecified part of neck of right femur, initial encounter for closed fracture (3) History of right hip hemiarthroplasty: (4) Pronation deformity of left foot: (5) Rheumatoid arthritis: (6) Osteoarthritis: PLAN: 1. Continue therapy 2. We will follow-up with Dr. Walker at the foot and ankle clinic post discharge for pronation deformity of the left foot and foot pain secondary to rheumatoid arthritis. 3. Continue doxycycline for the full 2 weeks. 4. Arava continues to be on hold until 06/22/2021 and the patient was made aware of this. 5. Continue tramadol for pain control 6. Diabetes mellitus is well controlled so will decrease the Accu-Cheks to twice daily, before breakfast and before supper Charges/Coding Visit Charges Inpatient E&M: 33629 Subs Hosp L2
[2021-06-13 21:39] VITALS: BP 117/69; PULSE 86; RESP 18; TEMP 36.2; O2SAT 100
[2021-06-14] MEDS: Levothyroxine 150 MCG Tablet PO (06:02)
[2021-06-14] MEDS: Nystatin Powder 15gm Bottle 1 APPLIC TOPICAL ×2 (06:03→21:41)
[2021-06-14] MEDS: 0.9% Saline Lock 10 ML Syringe IV (06:09)
[2021-06-14] MEDS: traMADol 50 MG Tablet PO ×3 (06:12→21:41)
[2021-06-14 07:20] LABS: Bedside Glucose 118 mg/dL (74-106)
[2021-06-14 08:01] VITALS: BP 148/88; PULSE 90; RESP 18; TEMP 36.1; O2SAT 99
[2021-06-14] MEDS: Hydroxychloroquine 200 MG Tablet PO ×2 (08:15→17:06)
[2021-06-14] MEDS: Doxycycline 100 MG CAPSULE PO ×2 (08:15→21:40)
[2021-06-14 08:16] VITALS: BP 148/88; PULSE 90
[2021-06-14] MEDS: Metoprolol Tartrate 50 MG Tablet PO (08:16)
[2021-06-14] MEDS: Cholecalciferol (VIT D3) 25 MCG TABLET (1,000 UNITS) 50 MCG PO (08:16)
--- NOTE | 2021-06-14 10:58 | PCM.PROGNOTE ---
Subjective Subjective Afebrile VSS - BP's have been running high the past few days. Resting pulse is also on the high side at 90. Current antihypertensive is metoprolol 50 mg daily. She has been taking Claritin D daily and this may be contributing. Maintaining appropriate oxygen saturation on RA Oral fluid intake is decreased (she is doing this on purpose because she does not want to be incontinent) Discussed with nursing - no problems that need addressed Reviewed the PT/OT/ST notes Medication list reviewed. The blood sugar record was reviewed and the blood sugars are consistently less than 180. The fasting blood sugar today was 118. Lora did not understand why dietary calls her to tell her she does not have enough carbohydrates. No one is ever told her this since she was diagnosed with diabetes. I explained that when you are on medication to control the blood sugars you cannot skip meals or have all your carbs at 1 meal or your blood sugars will vary widely. She expressed understanding. She tells me her pain is adequately controlled. She tells me that her mouth feels dry but she is trying to avoid drinking fluids because she does not want to have to urinate and possibly be incontinent. She also does not like being monitored/watched when she is in the bathroom. She understands why this is necessary. She denies cough, shortness of breath, chest pain, calf pain, constipation, nausea, lightheadedness. Objective Data Objective Data Vital Signs: Vital Signs Temp Pulse Resp BP Pulse Ox 97.0 F L 90 18 148/88 H 99 06/14/21 08:01 06/14/21 08:16 06/14/21 08:01 06/14/21 08:16 06/14/21 08:01 Oxygen Delivery Method Room Air Weight: 245 lb 13.047 oz Body Mass Index (BMI) 35.2 Intake & Output: Intake and Output for Last 24 Hours 06/12/21 06/13/21 06/14/21 23:59 23:59 23:59 Intake Total 480 / 480 1402 / 1402 Balance 480 / 480 1402 / 1402 Lab / Micro Data Labs: Laboratory Results - last 24 hr 06/14/21 06:06: POC Glucose 118 H Physical Exam HEENT HEENT Narrative: Dry MM Eyes conjunctivae normal and no scleral icterus Resp normal respiratory effort, normal air movement and clear to auscultation bilaterally Effort and Inspection: able to speak in complete sentences; Negative for tachypneic Cardio regular rate, regular rhythm and no gallops GI normal to inspection, nondistended, normoactive bowel sounds, soft to palpation and non-tender Extremity no calf tenderness and no pedal edema Skin Wound Narrative: The incision is currently covered with a silver impregnated dressing......will examine again when the dressing is changed. Psych cooperative and affect normal Assessment & Plan Assessment/Plan (1) Fracture of hip, right, closed: QUALIFIERS: Encounter type: initial encounter Qualified Code(s): S72.001A - Fracture of unspecified part of neck of right femur, initial encounter for closed fracture PLAN: she is maintaining the posterior hip precautions and she can repeat them to me. Pain is adequately controlled and the incision is intact with no erythema or DC. Will follow up with Dr. Reyes post DC. Continue the Xarelto for DVT prophylaxis for a total of 28 days post op. (2) History of right hip hemiarthroplasty: (3) Physical debility: PLAN: Due to recent R hip fracture and surgical repair in a pt with RA and OA and foot deformities. Continue PT/OT for strengthening and learning how to manage the FWW while keeping the hip precautions. (4) Hypertension: PLAN: BP is mildly elevated. Pain? due to decongestant? She is only on 1 antihypertensive. She is willing to try changing the Claritin D to plain Claritin and adding Atrovent nasal spray to see if the BP improves. (5) Allergic rhinitis: Charges/Coding Visit Charges Inpatient E&M: 68238 Subs Hosp L2
[2021-06-14] MEDS: Rivaroxaban 10 MG Tablet PO (17:05)
[2021-06-14 19:51] VITALS: BP 124/81; PULSE 79; RESP 18; TEMP 36.3; O2SAT 100
[2021-06-14] MEDS: Ipratropium Bromide 0.06% NASAL SPRAY 2 SPRAY NASAL (21:40)
[2021-06-14] MEDS: Loratadine 10 MG Tablet PO (21:42)
[2021-06-15] MEDS: Levothyroxine 150 MCG Tablet PO (06:11)
[2021-06-15] MEDS: Nystatin Powder 15gm Bottle 1 APPLIC TOPICAL ×2 (06:12→20:24)
[2021-06-15 06:55] LABS: Bedside Glucose 125 mg/dL (74-106)
[2021-06-15 07:34] VITALS: BP 145/83; PULSE 87; RESP 16; TEMP 36.6; O2SAT 97
[2021-06-15] MEDS: Ipratropium Bromide 0.06% NASAL SPRAY 2 SPRAY NASAL ×2 (08:09→20:19)
[2021-06-15] MEDS: Doxycycline 100 MG CAPSULE PO ×2 (08:10→20:20)
[2021-06-15] MEDS: Hydroxychloroquine 200 MG Tablet PO ×2 (08:10→17:59)
[2021-06-15 08:11] VITALS: PULSE 87
[2021-06-15] MEDS: Cholecalciferol (VIT D3) 25 MCG TABLET (1,000 UNITS) 50 MCG PO (08:11)
[2021-06-15] MEDS: Metoprolol Tartrate 50 MG Tablet PO (08:11)
[2021-06-15] MEDS: traMADol 50 MG Tablet PO ×2 (09:00→21:34)
--- NOTE | 2021-06-15 16:27 | CHAPLAIN ---
Type of Pastoral Visit _x__ Initial Visit ___ Follow-up Visit ___ On-call Visit ___ General Patient Visit ___ Spiritual Assessment ___ Family Conference ___ Bereavement ___ Rapid Response ___ Code Blue ___ Other (describe below) Pastoral Care Referral From _x__ Patient ___ Family ___ Nurse ___ Physician ___ Court Crier ___ Tarring Machine Operator ___ Other (describe below) Sacrament/Intervention _x__ Active listening ___ Anointing ___ Amish ___ Bereavement ___ Communion _x__ Kristy exploration ___ _x__ Life review _x__ Prayer ___ Reconciliation ___ Sacrament of Sick _x__ Supportive presence ___ Wedding ___ Other (describe below) Pastoral Comments
[2021-06-15 16:51] LABS: Bedside Glucose 137 mg/dL (74-106)
[2021-06-15] MEDS: Rivaroxaban 10 MG Tablet PO (17:59)
[2021-06-15 19:05] LABS: Microalbumin,Random Urine 32.3 mg/L (NO RANGE EST.)
[2021-06-15 19:30] VITALS: BP 134/77; PULSE 84; RESP 17; TEMP 36.2; O2SAT 95
[2021-06-15] MEDS: Loratadine 10 MG Tablet PO (20:20)
--- NOTE | 2021-06-16 01:52 | NURSING ---
Reviewed and agree with FLIGHT TEST SUPERVISOR assessment.
[2021-06-16] MEDS: Levothyroxine 150 MCG Tablet PO (05:43)
[2021-06-16] MEDS: Nystatin Powder 15gm Bottle 1 APPLIC TOPICAL ×2 (05:44→21:39)
[2021-06-16] MEDS: traMADol 50 MG Tablet PO ×3 (05:47→21:38)
[2021-06-16 06:30] LABS: Bedside Glucose 151 mg/dL (74-106)
[2021-06-16 07:17] VITALS: BP 133/71; PULSE 80; RESP 18; TEMP 36.4; O2SAT 99
[2021-06-16] MEDS: Ipratropium Bromide 0.06% NASAL SPRAY 2 SPRAY NASAL ×2 (07:35→21:39)
[2021-06-16 07:36] VITALS: PULSE 80
[2021-06-16] MEDS: Hydroxychloroquine 200 MG Tablet PO ×2 (07:36→17:09)
[2021-06-16] MEDS: Metoprolol Tartrate 50 MG Tablet PO (07:36)
[2021-06-16] MEDS: Cholecalciferol (VIT D3) 25 MCG TABLET (1,000 UNITS) 50 MCG PO (07:36)
[2021-06-16] MEDS: Doxycycline 100 MG CAPSULE PO ×2 (07:36→21:39)
[2021-06-16 16:01] LABS: Bedside Glucose 141 mg/dL (74-106)
[2021-06-16] MEDS: Rivaroxaban 10 MG Tablet PO (17:09)
[2021-06-16 20:33] VITALS: BP 138/72; PULSE 81; RESP 16; TEMP 36.6; O2SAT 96
[2021-06-16] MEDS: Loratadine 10 MG Tablet PO (21:39)
[2021-06-17] MEDS: Nystatin Powder 15gm Bottle 1 APPLIC TOPICAL ×2 (07:17→22:07)
[2021-06-17] MEDS: Levothyroxine 150 MCG Tablet PO (07:17)
[2021-06-17 07:25] LABS: Bedside Glucose 114 mg/dL (74-106)
[2021-06-17 07:30] VITALS: BP 123/65; PULSE 86; RESP 16; TEMP 36.2; O2SAT 96
[2021-06-17] MEDS: Hydroxychloroquine 200 MG Tablet PO ×2 (08:58→17:23)
[2021-06-17] MEDS: Ipratropium Bromide 0.06% NASAL SPRAY 2 SPRAY NASAL ×2 (08:58→22:06)
[2021-06-17 08:59] VITALS: BP 123/65; PULSE 86
[2021-06-17] MEDS: Doxycycline 100 MG CAPSULE PO ×2 (08:59→22:06)
[2021-06-17] MEDS: Metoprolol Tartrate 50 MG Tablet PO (08:59)
[2021-06-17] MEDS: Cholecalciferol (VIT D3) 25 MCG TABLET (1,000 UNITS) 50 MCG PO (09:02)
[2021-06-17] MEDS: traMADol 50 MG Tablet PO (09:12)
[2021-06-17 16:21] LABS: Bedside Glucose 139 mg/dL (74-106)
[2021-06-17] MEDS: Rivaroxaban 10 MG Tablet PO (17:22)
[2021-06-17 21:23] VITALS: BP 132/78; PULSE 85; RESP 17; TEMP 36.1; O2SAT 98
[2021-06-17 22:00] VITALS: PULSE 83; RESP 16
[2021-06-17] MEDS: Loratadine 10 MG Tablet PO (22:06)
[2021-06-18] MEDS: Nystatin Powder 15gm Bottle 1 APPLIC TOPICAL ×2 (06:26→19:42)
[2021-06-18] MEDS: Levothyroxine 150 MCG Tablet PO (06:26)
[2021-06-18 07:00] LABS: Bedside Glucose 144 mg/dL (74-106)
[2021-06-18 07:32] VITALS: BP 136/67; PULSE 97; RESP 16; TEMP 36.4; O2SAT 97
[2021-06-18 09:07] VITALS: PULSE 70
[2021-06-18] MEDS: Doxycycline 100 MG CAPSULE PO ×2 (09:07→19:43)
[2021-06-18] MEDS: Metoprolol Tartrate 50 MG Tablet PO (09:07)
[2021-06-18] MEDS: Hydroxychloroquine 200 MG Tablet PO ×2 (09:07→18:20)
[2021-06-18] MEDS: Cholecalciferol (VIT D3) 25 MCG TABLET (1,000 UNITS) 50 MCG PO (09:07)
[2021-06-18] MEDS: Ipratropium Bromide 0.06% NASAL SPRAY 2 SPRAY NASAL ×2 (09:07→19:42)
[2021-06-18] MEDS: traMADol 50 MG Tablet PO ×2 (09:39→19:42)
[2021-06-18 16:36] LABS: Bedside Glucose 104 mg/dL (74-106)
[2021-06-18] MEDS: Rivaroxaban 10 MG Tablet PO (18:20)
[2021-06-18 19:13] VITALS: BP 126/65; PULSE 69; RESP 17; TEMP 36.6; O2SAT 97
[2021-06-18] MEDS: Loratadine 10 MG Tablet PO (19:43)
[2021-06-18 20:17] VITALS: RESP 16
--- NOTE | 2021-06-19 04:37 | NURSING ---
REVIEWED AND AGREE WITH KEY SANDER DOCUMENTATION AND ASSESSMENT CHECKING.
[2021-06-19] MEDS: Levothyroxine 150 MCG Tablet PO (05:02)
[2021-06-19] MEDS: Nystatin Powder 15gm Bottle 1 APPLIC TOPICAL ×2 (05:02→21:53)
[2021-06-19 06:01] LABS: Bedside Glucose 91 mg/dL (74-106)
[2021-06-19 07:46] VITALS: BP 145/86; PULSE 82; RESP 16; TEMP 36.7; O2SAT 96
[2021-06-19 08:42] VITALS: PULSE 82
[2021-06-19] MEDS: Hydroxychloroquine 200 MG Tablet PO ×2 (08:42→16:51)
[2021-06-19] MEDS: Senna/Docusate Sodium 1 Tablet 2 TABLET PO (08:42)
[2021-06-19] MEDS: Metoprolol Tartrate 50 MG Tablet PO (08:42)
[2021-06-19] MEDS: Doxycycline 100 MG CAPSULE PO ×2 (08:42→21:53)
[2021-06-19] MEDS: Ipratropium Bromide 0.06% NASAL SPRAY 2 SPRAY NASAL ×2 (08:42→21:53)
[2021-06-19] MEDS: Cholecalciferol (VIT D3) 25 MCG TABLET (1,000 UNITS) 50 MCG PO (08:43)
[2021-06-19] MEDS: traMADol 50 MG Tablet PO ×2 (12:23→21:52)
--- NOTE | 2021-06-19 16:15 | CASEMGMT ---
Social Work Met with pt to discuss DC plans as pt is DCing 06/22. Discussed HHC vs OP. Pt prefers C. Provided list of skilled HHC agencies with resource data. Pt prefers [facility] then expressed wanting to transition to [facility], but will need transport. Explained [facility] can work with [facility] for free transport. Pt appreciative. No DME needs. Children to transport pt at DC. Referral made to [facility] PT/OT/ST/SW. SW to follow for emotional support, transition home, coordinating with additional community resources. Plan: DC home with 06/22, [facility] PT/OT/ST/SW DELROY DiazW
[2021-06-19 16:35] LABS: Bedside Glucose 94 mg/dL (74-106)
[2021-06-19] MEDS: Rivaroxaban 10 MG Tablet PO (16:52)
--- NOTE | 2021-06-19 19:18 | PCM.PROGNOTE ---
Subjective Subjective Afebrile VSS Maintaining appropriate oxygen saturation on RA Oral intake is good Blood sugars are well controlled with no hypoglycemia. Discussed with nursing - no problems that need addressed Reviewed the PT/OT notes - PT/OT tell me that she is very forgetful and she repeats herself a lot. Medication list reviewed. Blood sugars are well controlled with no hypoglycemia. BS's were in the 90's yesterday and the fasting today is 118. She denies pain. Rarely takes a Tramadol. She denies calf pain, shortness of breath, cough, sore throat, dysuria, abdominal pain, nausea/vomiting/diarrhea, lightheadedness. BP has improved since admission.......it was likely elevated due to pain. Objective Data Objective Data Vital Signs: Vital Signs Temp Pulse Resp BP Pulse Ox 98.1 F 82 16 145/86 H 96 06/19/21 07:46 06/19/21 08:42 06/19/21 07:46 06/19/21 07:46 06/19/21 07:46 Oxygen Delivery Method Room Air Weight: 247 lb Body Mass Index (BMI) 35.2 Intake & Output: Intake and Output for Last 24 Hours 06/17/21 06/18/21 06/19/21 23:59 23:59 23:59 Intake Total 1340 / 1340 960 / 960 Balance 1340 / 1340 960 / 960 Lab / Micro Data Labs: Laboratory Results - last 24 hr 06/19/21 05:56: POC Glucose 91 06/19/21 16:33: POC Glucose 94 Physical Exam Const alert General Appearance: cooperative HEENT normocephalic Resp normal respiratory effort, normal air movement and clear to auscultation bilaterally Effort and Inspection: able to speak in complete sentences Cardio regular rate, regular rhythm and no gallops GI normal to inspection, nondistended, normoactive bowel sounds, soft to palpation and non-tender GI Narrative: no guarding with palpation Extremity no calf tenderness Extremity Narrative: no pitting edema of the LE's. she has cherrie enlargement of the R ankle kristen. General Extremity: Negative for cyanosis Skin Rashes: no rashes Wounds: wounds noted Wound Narrative: the incision of the R hip is intact and has no erythema or DC. Neuro oriented x3, CN's II-XII intact bilaterally and moves all extremities Assessment & Plan Assessment/Plan (1) Physical debility: (2) Fall at home: (3) Fracture of hip, right, closed: QUALIFIERS: Encounter type: initial encounter Qualified Code(s): S72.001A - Fracture of unspecified part of neck of right femur, initial encounter for closed fracture (4) History of right hip hemiarthroplasty: (5) Hypertension: (6) Type II diabetes mellitus: PLAN: 1. Continue PT/OT for debility due to the recent hip fracture and the subsequent ORIF. Plan is for DC home on . Will recheck lab prior to DC. 2. BP and BS's are well controlled.....no changes in medications necessary. 3. Will follow up with podiatry for the cherrie deformity of the R ankle and foot to see if she would benefit from a custom shoe? or brace? 4. Continue the Xarelto for DVT prophylaxis for 4 weeks after the date of the surgery. Charges/Coding Visit Charges Inpatient E&M: 76130 Subs Hosp L2
[2021-06-19 21:30] VITALS: BP 106/78; PULSE 76; RESP 16; TEMP 36.2; O2SAT 98
[2021-06-19] MEDS: Loratadine 10 MG Tablet PO (21:53)
--- NOTE | 2021-06-20 03:50 | NURSING ---
Reviewed and agree with TELECINE OPERATOR documentation and assessment charting.
[2021-06-20] MEDS: Nystatin Powder 15gm Bottle 1 APPLIC TOPICAL ×2 (06:44→20:41)
[2021-06-20] MEDS: Levothyroxine 150 MCG Tablet PO (06:44)
[2021-06-20 07:16] LABS: Bedside Glucose 118 mg/dL (74-106)
[2021-06-20 07:39] VITALS: BP 113/60; PULSE 86; RESP 16; TEMP 36.4; O2SAT 97
[2021-06-20 08:00] VITALS: BP 113/60; PULSE 86
[2021-06-20] MEDS: Cholecalciferol (VIT D3) 25 MCG TABLET (1,000 UNITS) 50 MCG PO (08:00)
[2021-06-20] MEDS: Doxycycline 100 MG CAPSULE PO ×2 (08:00→20:41)
[2021-06-20] MEDS: Metoprolol Tartrate 50 MG Tablet PO (08:00)
[2021-06-20] MEDS: Hydroxychloroquine 200 MG Tablet PO ×2 (08:00→16:56)
[2021-06-20] MEDS: Ipratropium Bromide 0.06% NASAL SPRAY 2 SPRAY NASAL ×2 (08:00→20:40)
--- NOTE | 2021-06-20 09:59 | NURSING ---
Patient jessika hose too tight to apply. patient expressing discomfort when attempting to apply them. Will apply chelsi wraps.
[2021-06-20] MEDS: traMADol 50 MG Tablet PO ×2 (10:13→20:42)
--- NOTE | 2021-06-20 15:30 | CT_ITS ---
STUDY: CT BRAIN WITHOUT CONTRAST REASON FOR EXAM: Female, 71 years old. altered mental status RADIATION DOSAGE (If Supplied By Facility): CTDIvol = ( 47.06 ) mGy, DLP = ( 855.03 ) mGycm TECHNIQUE: Transaxial CT imaging of the brain was performed without administration of intravenous contrast material. Individualized dose optimization techniques were used for this CT. COMPARISON: No relevant priors. FINDINGS: Normal soft tissue structures. Normal calvarium. There is mild cerebral atrophy with widening of the extra-axial spaces and ventricular dilatation. There are areas of decreased attenuation within the white matter tracts of the supratentorial brain, consistent with microvascular disease changes. Normal basal ganglia and thalami. Normal brainstem. Normal cerebellum. There is no intracranial hemorrhage. There are no findings of an acute ischemic infarction. Normal visualized paranasal sinuses. CT/Brain/Head without Contrast IMPRESSION: No acute intracranial hemorrhage or mass effect. Electronically Signed: Guille Herrera MD ([place]) at 16:36 EDT ,
--- NOTE | 2021-06-20 16:00 | PN_ITS ---
Subjective Subjective Afebrile VSS Maintaining appropriate oxygen saturation on RA Discussed with nursing - no problems that need addressed Reviewed the PT/OT notes Medication list reviewed. BS's are well controlled with no hypoglycemia. Tells me that she is sleeping well at night. She denies CP, MONTOYA, cough, SOB, calf pain. N/V/D/C. Last BM was yesterday. She is c/o having no privacy, kristen in the BR. She is also complaining of a stuffy nose in the AM. She tells me that her pain is adequately controlled and she denies dysuria or suprapubic pain. I had a call on my VM from her son from 06/15 when I was out of town stating his mom was confused. I called him and he tells me that she is confused and she is bringing up things from the past and she thinks they are happening currently. She tells him that she rings the call light and the nurses are standing out in the carr looking in at her and they are not helping her. She does not want to have to ring the call light and does not feel that she needs a WW. She can not remember my name and she still does not remember that I am her doctor while she is in rehab. The therapists have mentioned again that she is very forgetful. Per her son she has no hx of mental illness and she has never had a stroke. Objective Data Objective Data Vital Signs: Vital Signs Temp Pulse Resp BP Pulse Ox 97.6 F L 86 16 113/60 97 06/20/21 07:39 06/20/21 08:00 06/20/21 07:39 06/20/21 08:00 06/20/21 07:39 Oxygen Delivery Method Room Air Weight: 247 lb Body Mass Index (BMI) 35.2 Intake & Output: Intake and Output for Last 24 Hours 06/18/21 06/19/21 06/20/21 23:59 23:59 23:59 Intake Total 960 / 960 240 / 240 Balance 960 / 960 240 / 240 Lab / Micro Data Labs: Laboratory Results - last 24 hr 06/19/21 16:33: POC Glucose 94 06/20/21 06:43: POC Glucose 118 H Physical Exam Const alert and oriented x3 General Appearance: cooperative HEENT normocephalic Eyes PERRL and EOMs intact bilaterally Neck supple Resp normal respiratory effort, normal air movement and clear to auscultation bilaterally Resp Narrative: Able to speak in complete sentences. Not coughing. Cardio regular rate, regular rhythm, S1 normal heart sound, S2 normal heart sound and no gallops GI normal to inspection, nondistended, normoactive bowel sounds, soft to palpation and non-tender Extremity General Extremity: Negative for clubbing, cyanosis or edema Skin Skin Narrative: The incision is intact with no bhargav-incisional erythema, purulent discharge or significant increase in warmth to touch. There is resolving ecchymosis. Rashes: no rashes Neuro CN's II-XII intact bilaterally and no focal motor deficits Neuro Narrative: She is slurring at times and I am having a hard time understanding her at times. Speech is pressured and she has a very difficult time staying on topic with flight of ideas. Speech: speech abnormal Psych Mood & Affect: anxious Assessment & Plan Assessment/Plan (1) Altered mental status: QUALIFIERS: Altered mental status type: unspecified Qualified Code(s): R41.82 - Altered mental status, unspecified PLAN: Pressured speech, flight of ideas, slurred speech, forgetful, having delusions - etiology ? She has never had a CT brain or an MRI at this institution. No hx of mental illness. She is AF and VS are stable. MM are dry. No focal motor deficits. Get a [place] CTB. CMP, CBC with diff and straight cath for a UA now. I called her son and discussed the plan with him. (2) Physical debility: PLAN: Continue PT/OT. Plan DC home if if no complications arise. Will have [facility] for PT/OT at DC. (3) Fracture of hip, right, closed: QUALIFIERS: Encounter type: initial encounter Qualified Code(s): S72.001A - Fracture of unspecified part of neck of right femur, initial encounter for closed fracture (4) History of right hip hemiarthroplasty: PLAN: 06/07/[address] Bradley Reyes. We will continue Xarelto 10 mg daily until 07/06/21. (5) Hypertension: QUALIFIERS: Hypertension type: primary hypertension Qualified Code(s): I10 - Essential (primary) hypertension PLAN: controlled. continue the current antihypertensive. (6) Type II diabetes mellitus: QUALIFIERS: Diabetes mellitus senior living insulin use: without senior living use Diabetes mellitus complication status: without complication Qualified Code(s): E11.9 - Type 2 diabetes mellitus without complications PLAN: Well-controlled. (7) Rheumatoid arthritis: QUALIFIERS: Rheumatoid arthritis location: multiple sites Charges/Coding Visit Charges Inpatient E&M: 20076 Subs Hosp L2
--- NOTE | 2021-06-20 16:09 | CASEMGMT ---
Social Work Patient unsure of transport for DC. Offered [facility] - pt agreeable. Scheduled for DC transport 1 pm on 06/22. Pt appreciative. Birgit Howe, AMBULATORY SERVICE REPRESENTATIVE ASSOCIATE ENTERTAINMENT EDITOR
[2021-06-20 16:21] LABS: Bacteria 0 SEEN /hpf (None Seen); Mucous, Urine 0 SEEN /hpf (<or=2+); Red Blood Cells-Urine 0 SEEN /hpf (0-5); Squamous Epithelial Cells - UA 0 SEEN /hpf (5-10); White Blood Cells 0 SEEN /hpf (0-5)
[2021-06-20 16:23] LABS: Absolute Lymphocyte Count 1.64 X10^3/uL (0.83-4.51); Absolute Neutrophil Count 5.6 X10^3/uL (2.0-7.7); Basophil% 1.2 % (0-1); Eosinophil# 0.08 X10^3/uL; Hematocrit 38.6 % (37-47); Hemoglobin 12.1 g/dL (12.0-15.0); Lymphocyte # 1.64 X10^3/ul (0.83-4.51); Lymphocyte % 19.7 % (19-41); Mean Corp Hgb Conc 31.3 g/dL (32-36); Mean Corpuscular Hgb 27.6 pg (27.0-32.0); Mean Corpuscular Volume 88.1 fL (81-99); Monocyte# 0.86 X10^3/uL; Monocyte% 10.3 % (0-10); NRBC Flagged by Analyzer 0 % (0-5); Neutrophil # 5.56 X10^3/uL (2.7-7.7); Neutrophil % 66.8 % (47-70); Platelet Count 408 K/mm3 (150-450); RBC Distribution Width CV 14.1 % (11.6-14.6); RBC Distribution Width SD 45.1 fl (35.1-43.9); Red Blood Count 4.38 M/mm3 (4.2-5.4); White Blood Count 8.3 K/mm3 (4.4-11.0)
[2021-06-20 16:27] LABS: Color, Urine Yellow (Yellow); Glucose, Dipstick Normal (Normal); Ketone-Dipstick Negative (Negative); Leukocyte Esterase-Dipstick Negative /ul (Negative); Nitrite-Dipstick Negative (Negative); Occult Blood-Urine Negative /ul (Negative); Protein-Dipstick 15 mg/dl (Negative); Specific Gravity, Urine 1.025 (1.002-1.030); Urine Bilirubin Dipstick Negative (Negative); Urine Clarity Clear (Clear); Urine Urobilinogen Normal (Normal)
[2021-06-20 16:30] LABS: Bedside Glucose 102 mg/dL (74-106)
[2021-06-20 16:37] LABS: Hyaline Cast 0-5 SEEN /lpf (0-5)
[2021-06-20 16:42] LABS: ALB/GLOB Ratio 0.8 RATIO (0.9-2.4); AST(SGOT) 22 U/L (15-37); Alanine Aminotransfer ALT/SGPT 20 U/L (13-56); Albumin, Serum 3.1 g/dL (3.2-5.0); Alkaline Phosphatase 91 U/L (45-117); Anion Gap 8 (5-15); BUN 29 mg/dL (7-18); BUN/Creat Ratio 25.4 RATIO (10-20); Calcium,Total 9.2 mg/dL (8.5-10.1); Chloride 107 mmol/L (98-107); Creatinine, Serum 1.14 mg/dL (0.55-1.02); EST Glomerular Filtration Rate 50 mL/min (>60); Est Glom Filt Rate - Afr Amer 60 mL/min (>60); Estimated Creatinine Clearance 48.24 ml/min; Globulin 3.8 g/dL (2.2-4.2); Glucose 117 mg/dL (74-106); Potassium 3.9 mmol/L (3.5-5.1); Protein, Total 6.9 g/dL (6.4-8.2); Sodium Level 138 mmol/L (136-145)
[2021-06-20] MEDS: Rivaroxaban 10 MG Tablet PO (16:56)
[2021-06-20 19:35] VITALS: BP 136/77; PULSE 86; RESP 16; TEMP 36.6; O2SAT 95
[2021-06-20] MEDS: 0.9% Saline Lock 10 ML Syringe IV (19:39)
--- NOTE | 2021-06-21 05:30 | NURSING ---
Reviewed and agree with SUPERVISOR WORD PROCESSING assessment.
[2021-06-21] MEDS: Levothyroxine 150 MCG Tablet PO (07:01)
[2021-06-21] MEDS: traMADol 50 MG Tablet PO ×2 (07:01→21:34)
[2021-06-21] MEDS: Nystatin Powder 15gm Bottle 1 APPLIC TOPICAL ×2 (07:02→21:34)
[2021-06-21 07:20] LABS: Bedside Glucose 146 mg/dL (74-106)
[2021-06-21 07:44] VITALS: BP 113/76; PULSE 94; RESP 18; TEMP 36.9; O2SAT 100
[2021-06-21 08:10] VITALS: BP 113/76; PULSE 94
[2021-06-21] MEDS: Metoprolol Tartrate 50 MG Tablet PO (08:10)
[2021-06-21] MEDS: Cholecalciferol (VIT D3) 25 MCG TABLET (1,000 UNITS) 50 MCG PO (08:11)
[2021-06-21] MEDS: Hydroxychloroquine 200 MG Tablet PO ×2 (08:11→16:43)
[2021-06-21] MEDS: Doxycycline 100 MG CAPSULE PO ×2 (08:11→21:33)
[2021-06-21] MEDS: Ipratropium Bromide 0.06% NASAL SPRAY 2 SPRAY NASAL ×2 (08:11→21:33)
--- NOTE | 2021-06-21 09:42 | PCM.PROGNOTE ---
Subjective Subjective Afebrile VSS Maintaining appropriate oxygen saturation on RA Oral intake is low.....she is not drinking because she does not want to be incontinent and she feels she has no privacy when she is in the BR. Nursing tells me they shut the door and wait outside until she is done. Discussed with nursing - no problems that need addressed. she did her AM oral care with supervision and she was able to shower/bathe herself with supervision/touch assist. Still needing partial/mod assist with LB dressing. She is total assist with donning shoes and socks. She refused the pure wick last night and she used the bedside commode Reviewed the PT/OT/ST notes Medication list reviewed. She is more calm today and she tells me that the car situation has been worked out so she will be able to have transportation home tomorrow. Speech is not pressured this AM when I am talking with her and there is no slurring. She states her pain is adequately controlled. She tells me she slept well last night. She is having regular bowel function. She denies chest pain, shortness of breath, palpitations, lightheadedness, dysuria, nausea/vomiting/abdominal pain, calf pain and cephalgia. Objective Data Objective Data Vital Signs: Vital Signs Temp Pulse Resp BP Pulse Ox 98.4 F 94 18 113/76 100 06/21/21 07:44 06/21/21 08:10 06/21/21 07:44 06/21/21 08:10 06/21/21 07:44 Oxygen Delivery Method Room Air Weight: 247 lb Body Mass Index (BMI) 35.2 Intake & Output: Intake and Output for Last 24 Hours 06/19/21 06/20/21 06/21/21 23:59 23:59 23:59 Intake Total 960 / 960 720 / 720 981.67 / 981.67 Balance 960 / 960 720 / 720 981.67 / 981.67 Lab / Micro Data Result Diagrams: 06/20/21 16:15 06/20/21 16:15 Labs: Laboratory Results - last 24 hr 06/20/21 16:00: Urine Color Yellow, Urine Clarity Clear, Urine pH 5.0, Ur Specific [place] 1.025, Urine Protein 15 H, Urine Glucose (UA) Normal, Urine Ketones Negative, Urine Occult Blood Negative, Urine Nitrite Negative, Urine Bilirubin Negative, Urine Urobilinogen Normal, Ur Leukocyte Esterase Negative, Urine RBC 0 SEEN, Urine WBC 0 SEEN, Ur Squamous Epith Cells 0 SEEN, Urine Bacteria 0 SEEN, Hyaline Casts 0-5 SEEN, Urine Mucus 0 SEEN 06/20/21 16:15: WBC 8.3, RBC 4.38, Hgb 12.1, Hct 38.6, MCV 88.1, MCH 27.6, MCHC 31.3 L, RDW Std Deviation 45.1 H, RDW Coeff of Rita 14.1, Plt Count 408, MPV 10.0, Immature Gran % (Auto) 1.000 H, Neut % (Auto) 66.8, Lymph % (Auto) 19.7, [place] % (Auto) 10.3 H, Eos % (Auto) 1.0, Baso % (Auto) 1.2 H, Absolute Neuts (auto) 5.6, Absolute Lymphs (auto) 1.64, Nucleated RBC % 0 06/20/21 16:15: Sodium 138, Potassium 3.9, Chloride 107, Carbon Dioxide 23.0, Anion Gap 8, BUN 29 H, Creatinine 1.14 H, Estim Creat Clear Calc 48.24, Est GFR (MDRD) Af Amer 60, Est GFR (MDRD) Non-Af 50 L, BUN/Creatinine Ratio 25.4 H, Glucose 117 H, Calcium 9.2, Total Bilirubin 0.50, AST 22, ALT 20, Alkaline Phosphatase 91, Total Protein 6.9, Albumin 3.1 L, Globulin 3.8, Albumin/Globulin Ratio 0.8 L 06/20/21 16:17: POC Glucose 102 06/21/21 07:12: POC Glucose 146 H Radiography Diagnostic Testing: Radiology Impression Brain CT 06/20/21 15:30 IMPRESSION: No acute intracranial hemorrhage or mass effect. Electronically Signed: Guille Herrera MD ([place]) at 16:36 EDT Reading Location ID and State: [facility] / [place] , Service support , Physical Exam Const alert, oriented x3 and no apparent distress Eyes PERRL, EOMs intact bilaterally, conjunctivae normal and no scleral icterus Resp normal respiratory effort, normal air movement and clear to auscultation bilaterally Effort and Inspection: able to speak in complete sentences Cardio regular rate, regular rhythm and no gallops GI normal to inspection, nondistended, normoactive bowel sounds, soft to palpation and non-tender GI Narrative: No guarding with palpation. Extremity no calf tenderness Extremity Narrative: She has edema of the feet and ankles but it is non-pitting. Skin Skin Narrative: The incision is intact with no purulent DC and no erythema. General Skin Exam: no breakdown Rashes: no rashes Assessment & Plan Assessment/Plan (1) Physical debility: (2) Closed right hip fracture: (3) History of right hip hemiarthroplasty: (4) Altered mental status: QUALIFIERS: Altered mental status type: unspecified Qualified Code(s): R41.82 - Altered mental status, unspecified (5) Type II diabetes mellitus: QUALIFIERS: Diabetes mellitus [facility] insulin use: without regional intermodal truck driver use Diabetes mellitus complication status: without complication Qualified Code(s): E11.9 - Type 2 diabetes mellitus without complications (6) Rheumatoid arthritis: QUALIFIERS: Rheumatoid arthritis location: multiple sites PLAN: 1. Recommended she follow up with a neurologist post DC to be evaluated for cognitive function and possible early signs of dementia. 2. BS's are well controlled with no hypoglycemia. 3. Plan DC home tomorrow with her son who is borrowing a vehicle for transport. 4. [facility] and then hopefully transition to OP therpy at [facility] 5. She will continue to practise posterior hip precautions and will instruct her as well to prevent dislocation until the scar tissue has a chance to form and stabilize the prosthesis in place. Charges/Coding Visit Charges Inpatient E&M: 98452 Subs Hosp L1
--- NOTE | 2021-06-21 09:51 | CASEMGMT ---
Social Work Pt notified SW she now has transport at [place]. Canceled [facility] Van transport. Birgit Howe, INDUSTRIAL MAINTENANCE MANAGER [employer]
[2021-06-21] MEDS: Rivaroxaban 10 MG Tablet PO (16:42)
[2021-06-21 17:26] LABS: Bedside Glucose 104 mg/dL (74-106)
[2021-06-21 21:20] VITALS: BP 122/70; PULSE 69; RESP 17; TEMP 36.6; O2SAT 98
[2021-06-21] MEDS: 0.9% Saline Lock 10 ML Syringe IV (21:54)
[2021-06-21 22:00] VITALS: PULSE 69
[2021-06-22] MEDS: Nystatin Powder 15gm Bottle 1 APPLIC TOPICAL (06:31)
[2021-06-22] MEDS: Levothyroxine 150 MCG Tablet PO (06:31)
[2021-06-22 07:21] LABS: Bedside Glucose 111 mg/dL (74-106)
[2021-06-22 07:46] VITALS: BP 119/80; PULSE 89; RESP 18; TEMP 36.4; O2SAT 98
[2021-06-22 07:47] VITALS: BP 119/80; PULSE 89
[2021-06-22] MEDS: Hydroxychloroquine 200 MG Tablet PO (07:47)
[2021-06-22] MEDS: Metoprolol Tartrate 50 MG Tablet PO (07:47)
[2021-06-22] MEDS: Cholecalciferol (VIT D3) 25 MCG TABLET (1,000 UNITS) 50 MCG PO (07:47)
[2021-06-22] MEDS: Leflunomide 10 MG TABLET 20 MG PO (07:48)
[2021-06-22] MEDS: Ipratropium Bromide 0.06% NASAL SPRAY 2 SPRAY NASAL (07:48)
[2021-06-22] MEDS: Doxycycline 100 MG CAPSULE PO (07:48)
[2021-06-22 08:45] VITALS: PULSE 80
--- NOTE | 2021-06-22 11:13 | PCM.DC ---
Discharge Instructions Diet Discharge Diet: 1800 Calorie Control Diet and - (Low fat and low salt) Activity Discharge Activity: May Not Drive, May Shower, Use Walker and - (No tub bathes until seen by Dr. Reyes) Ice area for (Minutes): 15 Lifting Restrictions: 5 lbs Keep extremity elevated above heart level: Legs Dressing / Incision Call your doctor if your incision/area has: Continuous Slow Oozing, Sudden Increased Bleeding, Increased Pain/ Swelling, Increased Redness and Foul Smelling Discharge Call your doctor if you observe: Fever of 101 or Higher, Inability to urinate, Inability to have a bowel movement, Shortness of breath, Fainting spells, Chest pain, Increased palpitations (irregular heartbeat), Calf discomfort and Uncontrolled pain Suture Line Care: Avoid Pulling/Pushing and Avoid Pinching/Bending Cleanse incision/area with: Soap & Water and Keep Dressing Clean & Dry Follow Up Care Please Follow Up With: Billy Church MD When: 7-10 days Test Results: Test results from this visit will be discussed in further detail at your follow-up appointment, if applicable. Pending Tests Upon Discharge: none Discharge Plan Admission Admit Date/Time: 06/08/21 18:18 Primary Reason for Your Visit: Debility due to fall/hip fx/hemiarthroplasty Attending Provider: Haydee Brady Primary Care Provider: Billy Church Instructions Patient Instructions: Fx Hip Surg Dc Additional Instructions / Restrictions: 1. I am concerned about your memory Lora. Both myself and the therapists have noticed that you don't seem to be able to retain some information from day to day and we often have to repeat things. This certainly could be related to your recent fall.......perhaps you hit your head and have a concussion. I got a CT of your head and it did not show a stroke or an intracerebral hemorrhage. I asked the speech therapist to evaluate your thought processes. She did a test to assess cognition and you scored 88 out a possible 100. Not consistent with dementia but, not normal. I do not think we should ignore this. The speech therapist recommended a retest in 4-[address] scan showed some atrophy of the brain and atrophy is normal as we age but, what I am seeing is more than what I would expect at your age and it seems to be worse in the frontal and temporal lobes. We have made an appt for you to see a neurologist in the next 1-2 months[address] Michael Barahona and he is here in [place]. If you are having a problem the time to address it is now, before things get worse. I may just be due to a concussion. 2. Your incision is healing well. There is no sign of infection. Would will be following up with the surgeon, Dr. Bradley Reyes after discharge from rehab. 3. You have been on a medication called Xarelto in the hospital to prevent blood clots. At discharge we are transitioning to aspirin 81 mg twice a day until the 08 of July and after then you can discontinue the Aspirin. Take your Aspiring with food. 4. Remember your hip precautions. This will help to keep the hip from dislocating until healing has occurred and it securely cemented in the socket. 1. No flexing of the hip greater than 90 degrees 2. Do not cross your legs 3. No twisting 5. Your blood sugars are under great control with no low blood sugars. 6. The blood pressure is under good control. 7. Your recent lab work was all good except, You were dehydrated and that is why you received 2 liters of IV saline. 8. Since you do have a problem with memory and confusion at times I do not recommend that she take antihistamines. You have been taking Claritin-D for sinus problems and this was discontinued while you were in rehab. Antihistamines can increase confusion as we get older and the decongestant can increase blood pressure and heart rate. We started you on a medication called Atrovent nasal spray and you will do 2 sprays in each nostril 2-3 times a day to help control your nasal symptoms. I sent a prescription to the pharmacy for you at discharge. If this is not adequate for you then you can discuss using a different medication with Dr. Church at your next visit. 9. I recommend that you see a faculty dean to see if there is an orthotic or a brace that would help with the over pronation of the R foot/ankle. Dr. Marianne Walker is a local faculty dean in [place] and she is very nice/kind and is good at her job. Her practise is on [address] in [place] and Dr. Page is another faculty dean at the same location. I have worked with both of them and I would recommend them to any of my family or friends. 9. It has been a pleasure to meet you Lora and I have enjoyed talking with you. If you or Bill has any questions after you leave rehab please do not hesitate to call me. Office: [phone] or [phone] . Discharge Orders/Prescriptions Prescriptions: New ipratropium bromide 42 mcg (0.06 %) [place],Non-Aerosol 2 spray NASAL TID Qty: 2 RF: 0 aspirin 81 mg capsule 81 mg PO DAILY 16 Days Qty: 32 RF: 0 Continued loratadine-pseudoephedrine [Claritin-D 24 Hour] 10-240 mg tablet extended release 24 hr 1 tab PO QAM PRN (Reason: Sinus Symptoms) RF: 0 tramadol 50 mg tablet 50 mg PO Q6H RF: 0 leflunomide 20 MG tablet 20 mg PO DAILY RF: 0 Hold Instructions: Resume on 06/22/21. hydroxychloroquine 200 MG tablet 200 mg PO BID RF: 0 cholecalciferol (vitamin D3) 2,000 UNIT tablet 2,000 unit PO DAILY RF: 0 levothyroxine 150 mcg tablet 150 mcg PO DAILY RF: 0 metoprolol tartrate 50 mg tablet 50 mg PO DAILY RF: 0 Discontinued doxycycline monohydrate 100 mg capsule 100 mg PO BID RF: 0 Xarelto 10 mg tablet 10 mg PO DINNER RF: 0 Referrals / Follow Up: Michael Barahona MD [STAFF PHYSICIAN] - 09/11/21 9:00 am (Office is going to mail you paper work to fill out. Mail it back as soon as possible. If they have an earlier appointment become available they will call you. ) Bradley Reyes MD [STAFF PHYSICIAN] - 06/26/21 2:00 pm ([facility] Van transport will pick you up at 1:00pm) Billy Church MD [Primary Care Provider] - (pt to make follow up appointment) Disposition Disposition (needs filled in before D/C Order can be placed): Home Health Service
[2021-06-22 12:22] VITALS: BP 118/65; PULSE 73; RESP 18; TEMP 36.6; O2SAT 95
--- NOTE | 2021-06-22 12:24 | DS.PCM_ITS ---
Providers Date of Admission: 06/08/21 Date of Discharge: 06/22/21 Primary Care Physician: Dr. Billy Church MD Reason For Visit: RIGHT HIP FRACTURE Diagnosis Discharge Diagnosis (1) Altered mental status: Status: Acute Code(s): R41.82 - Altered mental status, unspecified Qualifiers: Altered mental status type: unspecified Qualified Code(s): R41.82 - Altered mental status, unspecified (2) Physical debility: Status: Acute Code(s): R53.81 - Other malaise (3) Fracture of hip, right, closed: Status: Acute Code(s): S72.001A - Fracture of unspecified part of neck of right femur, initial encounter for closed fracture Qualifiers: Encounter type: initial encounter Qualified Code(s): S72.001A - Fracture of unspecified part of neck of right femur, initial encounter for closed fracture (4) History of right hip hemiarthroplasty: Status: Acute Code(s): Z96.641 - Presence of right artificial hip joint (5) Hypertension: Status: Chronic Code(s): I10 - Essential (primary) hypertension Qualifiers: Hypertension type: primary hypertension Qualified Code(s): I10 - Essen tial (primary) hypertension (6) Type II diabetes mellitus: Status: Chronic Code(s): E11.9 - Type 2 diabetes mellitus without complications Qualifiers: Diabetes mellitus complication status: without complication Diabetes mellitus adjunct faculty for medical terminology insulin use: without adjunct faculty for medical terminology use Qualified Code(s): E11.9 - Type 2 diabetes mellitus without complications (7) Rheumatoid arthritis: Status: Chronic Code(s): M06.9 - Rheumatoid arthritis, unspecified Qualifiers: Rheumatoid arthritis location: multiple sites Plan: OR home with [facility] F/U with Dr. Billy Church F/U with Dr. Bradley Reyes F/U with Dr. Barahona to be evaluated for cognitive dysfunction. Medications at Discharge Home Medications hydroxychloroquine 200 mg PO BID 02/19/13 leflunomide 20 mg PO DAILY 02/19/13 cholecalciferol (vitamin D3) 50 mcg (2,000 unit) tablet 2,000 unit PO DAILY tab 01/22/17 loratadine-pseudoephedrine ER 10 mg-240 mg tablet,extended [id number] 1 tab PO QAM PRN 12/12/17 tramadol 50 mg tablet 50 mg PO Q6H tab 01/22/17 levothyroxine 150 mcg PO DAILY 06/06/21 metoprolol tartrate 50 mg PO DAILY 06/08/21 oxycodone-acetaminophen [Percocet] 1 tab PO Q6H PRN 3 Days #12 tab 06/26/21 aspirin 81 mg PO DAILY 06/27/21 ipratropium bromide 2 spray NASAL TID 06/27/21 Hospital Course Operations - (R hip hemiarthroplasty on 06/07/21. ) Procedures None Summary of Care Provided Minutes Spent on Discharge: 40 Hospital Course: LORA AGUIRRE, is a 71 YO F with a PMH of hypertension, hyperlipidemia, diabetes mellitus type 2, obesity, allergic rhinitis, rheumatoid arthritis, hypothyroidism and osteoarthritis who presented to the [facility] emergency department on 06/06/2021 after a fall at home. She complained of right hip pain. X-ray revealed a right femoral neck fracture and she was admitted to the hospital. Consult was obtained with Dr. Bradley Reyes and the patient was taken to surgery on 06/07/2021 for a right hip cemented hemiarthroplasty. Post operatively she had some confusion that was attributed to anesthesia and pain medications. She had been on Arava for RA and this was held post-operatively. She was ordered 2 weeks of Doxycycline to help prevent infection due to immunosuppression. She was transferred to the acute inpt rehab unit at [facility] on 06/08/21 for 3 hours of therapy daily to restore function/i ndependence at or near her level prior to the fracture. Pt was observed over the course of a few days by the therapists and also by myself with regard to her mental status. She was very forgetful and had to be reminded of the posterior hip precautions nearly every day. She also had to be reminded about hand position on the walker and some other things. I was able to have some good conversations with her but, she often asked me the same questions every day and could not seem to recall that she had asked the previous day. She got out of bed without using the call light and ambulated to the BR by herself. She was quite upset about not having privacy in the bathroom......the nurses allowed her to be on the toilet by herself while they waited outside the door to assist her with hygiene and getting off the toilet when she was finished. Her son Dayne was concerned about the confusion and told me that she was not like that at home prior to the fall/surgery. She had been bringing up events that happened in the past and thought they were currently happening. She was never able to remember my name or that I was her doctor. A TSH was checked and the TSH was mildly elevated but, the T4 was normal. A non-contrast CT brain was obtained and showed cerebral atrophy and decreased attenuation within the white matter tracts of the supratentorial brain. Per my review the atrophy in the frontotemporal area seemed to be worse than in the posterior brain. She was seen by the while on rehab to do some cognitive function testing. They administered the [facility] mental status examination and she scored 22 out of a possible 30 with deficits in clock drawing, numeric calculation and delayed recall. We had planned on her transporting her home at DC but, this fell through and the pt was very distraught/anxious, increasingly confused and forgetful. She was slurring her speech, had flight of ideas and could not stay on topic. The SW made arrangements for the hospital van to transport her home but, in the end her son was able to borrow a vehicle to take her home. At the time of DC her speech was clear and she seemed to be better able to follow the conversation. We suggested to Lora and to Dayne that Lora follow up with neurology to be evaluated for possible early dementia. It is interesting that on the previous H&P's it says she has a hx of chronic mental illness but, Dayne denied any medical health conditions when I asked him. Prior to discharge Lora was able to do 7 sit to stands in 30 seconds which was improved from to stands when she initially (scented to rehab. She was able to ascend/descend to 6 inch steps at min contact-guard assist of 1 with 2 handrails. She had ambulated up to 175 feet with a front wheel walker and co ntact-guard assist on uneven surfaces. She was independent with eating and was supervision/set up for grooming and upper body dressing. She required minimal assist with upper body dressing and moderate assistance with lower body dressing. She was standby assist for toilet transfer and toileting. She was contact-guard assist for tub/shower transfer. [facility] was arranged and she will get PT/OT/ST/SW. Lora will follow up with Dr. Bradley Reyes and Dr. Billy Church post DC and an appt was made for her to see Dr. Michael Barahona on 09/11/21 to be evaluated for cognitive dysfunction. Physical Exam Const alert, oriented x3 and no apparent distress Constitutional Narrative: Sitting in the recliner at the bedside. Pleasant and talkative, making good eye contact. General Appearance: cooperative, comfortable, well kempt, well developed and other Tells me that her pain is well controlled HEENT normocephalic Eyes PERRL, EOMs intact bilaterally, conjunctivae normal and no scleral icterus Eyes Narrative: No scleral icterus or conjunctival injection. No discharge from her eyes. General Eye: normal appearance of both eyes Neck no lymphadenopathy, supple and no carotid bruits Chest Chest: symmetrical chest wall rise Resp normal respiratory effort, normal air movement, no use of accessory muscles and clear to auscultation bilaterally Resp Narrative: Able to speak in complete sentences. Not coughing. Effort and Inspection: able to speak in complete sentences; Negative for tachypneic Cardio regular rate, regular rhythm, S1 normal heart sound, S2 normal heart sound, no murmurs, no rub and no gallops Cardio Narrative: No ectopy. Jugular Venous Distention: Negative for JVD Peripheral Pulses: pulses 2+ throughout GI normal to inspection, nondistended, normoactive bowel sounds, soft to palpation and non-tender GI Narrative: no guarding with palpation Extremity no calf tenderness and no pedal edema Extremity Narrative: no pitting edema of the LE's. she has cherrie enlargement of the R ankle kristen. The R foot/ankle is over pronated which causes difficulty with walking. She has a AFO/brace on the L foot/ankle and tells me that she has had problems with her feet since she was a young child. General Extremity: Negative for clubbing, cyanosis or edema Skin Skin Narrative: The incision is intact with no bhargav-incisional erythema, purulent discharge or significant increase in warmth to touch. There is resolving ecchymosis. Still has mild dependent edema in the R hip/buttock area. General Skin Exam: no breakdown Rashes: no rashes Wounds: wounds noted Wound Narrative: the incision of the R hip is intact and has no erythema or DC. Neuro oriented x3, CN's II-XII intact bilaterally, moves all extremities, no focal motor deficits and no sensory deficits noted Neuro Narrative: Psych mental status grossly normal, cooperative, affect normal, speech normal and activity/motor behavior normal Psych Narrative: At times she has had flight of ideas and pressured speech. Appearance: grossly normal and appropriate Activity / Motor Behavior: appropriate eye contact Mood & Affect: anxious Attention / Concentration: other Attention is impaired at times and she can not concentrate and stay on topic. She gets anxious at times and sometimes she is a ngry at things.......like not being able to get up and go to the BR when she needs to without waiting for assistance. Memory / Cognition: memory grossly impaired Impaired Memory Type(s): Positive for immediate and short term and other Higher level executive function is impaired and so is delayed recall. Insight: insight good and fair Judgement: judgement good and fair Weight / BMI Weight Weight: 247 lb Body Mass Index (BMI) 35.2 ABG / Lab / Microbiology Data Result Diagrams: 06/20/21 16:15 06/20/21 16:15 Laboratory: Laboratory Results - last 24 hr 06/21/21 16:44: POC Glucose 104 06/22/21 06:27: POC Glucose 111 H D/C Instructions Discharge Diet: 1800 Calorie Control Diet and - (Low fat and low salt) Ice area for (Minutes): 15 Keep extremity elevated above heart level: Legs Call your doctor if your incision/area has: Continuous Slow Oozing, Sudden Increased Bleeding, Increased Pain/ Swelling, Increased Redness and Foul Smelling Discharge Call your doctor if you observe: Fever of 101 or Higher, Inability to urinate, Inability to have a bowel movement, Shortness of breath, Fainting spells, Chest pain, Increased palpitations (irregular heartbeat), Calf discomfort and U ncontrolled pain Suture Line Care: Avoid Pulling/Pushing and Avoid Pinching/Bending Cleanse incision/area with: Soap & Water and Keep Dressing Clean & Dry Pending Tests Upon Discharge: none Please Follow Up With: Billy Church MD When: 7-10 days Meaningful Use Info Meaningful Use Diagnoses (Choose all that apply): None applicable Discharge Plan Admission Admit Date/Time: 06/08/21 18:18 Primary Reason for Your Visit: Debility due to fall/hip fx/hemiarthroplasty Attending Provider: Haydee Brady Primary Care Provider: Billy Church Instructions Patient Instructions: Fx Hip Surg Dc Additional Instructions / Restrictions: 1. I am concerned about your memory Lora. Both myself and the therapists have noticed that you don't seem to be able to retain some information from day to day and we often have to repeat things. This certainly could be related to your recent fall.......perhaps you hit your head and have a concussion. I got a CT of your head and it did not show a stroke or an intracerebral hemorrhage. I asked the speech therapist to evaluate your thought processes. She did a test to assess cognition and you scored 88 out a possible 100. Not consistent with dementia but, not normal. I do not think we should ignore this. The speech therapist recommended a retest in 4-[address] scan showed some atrophy of the brain and atrophy is normal as we age but, what I am seeing is more than what I would expect at your age and it seems to be worse in the frontal and temporal lobes. We have made an appt for you to see a neurologist in the next 1-2 months[address] Michael Barahona and he is here in [place]. If you are having a problem the time to address it is now, before things get worse. I may just be due to a concussion. 2. Your incision is healing well. There is no sign of infection. Would will be following up with the surgeon, Dr. Bradley Reyes after discharge from rehab. 3. You have been on a medication called Xarelto in the hospital to prevent blood clots. At discharge we are transitioning to aspirin 81 mg twice a day until the 08 of July and after then you can discontinue the Aspirin. Take your Aspiring with food. 4. Remember your hip precautions. This will help to keep the hip from dislocating until healing has occurred and it securely cemented in the socket. 1. No flexing of the hip greater than 90 degrees 2. Do not cross your legs 3. No twisting 5. Your blood sugars are under great control with no low blood sugars. 6. The blood pressure is under good control. 7. Your recent lab work was all good except, You were dehydrated and that is why you received 2 liters of IV saline. 8. Since you do have a problem with memory and confusion at times I do not recommend that she take antihistamines. You have been taking Claritin-D for sinus problems and this was discontinued while you were in rehab. Antihistamines can increase confusion as we get older and the decongestant can increase blood pressure and heart rate. We started you on a medication called Atrovent nasal spray and you will do 2 sprays in each nostril 2-3 times a day to help control your nasal symptoms. I sent a prescription to the pharmacy for you at discharge. If this is not adequate for you then you can discuss using a different medication with Dr. Church at your next visit. 9. I recommend that you see a superintendent laundry to see if there is an orthotic or a brace that would help with the over pronation of the R foot/ankle. Dr. Marianne Walker is a local superintendent laundry in [place] and she is very nice/kind and is good at her job. Her practise is on [facility] in [place] and Dr. Page is another superintendent laundry at the same location. I have worked with both of them and I would recommend them to any of my family or friends. 9. It has been a pleasure to meet you Lora and I have enjoyed talking with you. If you or Bill has any questions after you leave rehab please do not hesitate to call me. Office: [phone] or [phone] . Discharge Orders/Prescriptions Prescriptions: Continued loratadine-pseudoephedrine [Claritin-D 24 Hour] 10-240 mg tablet extended release 24 hr 1 tab PO QAM PRN (Reason: Sinus Symptoms) RF: 0 tramadol 50 mg tablet 50 mg PO Q6H RF: 0 leflunomide 20 MG tablet 20 mg PO DAILY RF: 0 Hold Instructions: Resume on 06/22/21. hydroxychloroquine 200 MG tablet 200 mg PO BID RF: 0 cholecalciferol (vitamin D3) 2,000 UNIT tablet 2,000 unit PO DAILY RF: 0 levothyroxine 150 mcg tablet 150 mcg PO DAILY RF: 0 metoprolol tartrate 50 mg tablet 50 mg PO DAILY RF: 0 Discontinued doxycycline monohydrate 100 mg capsule 100 mg PO BID RF: 0 Xarelto 10 mg tablet 10 mg PO DINNER RF: 0 No Action oxycodone-acetaminophen [Percocet] 5-325 mg tablet 1 tab PO Q6H PRN (Reason: pain) 3 Days Qty: 12 RF: 0 ipratropium bromide 42 mcg (0.06 %) spray,non-aerosol 2 spray NASAL TID RF: 0 aspirin 81 mg capsule 81 mg PO DAILY RF: 0 Referrals / Follow Up: Michael Barahona MD [STAFF PHYSICIAN] - 09/11/21 9:00 am (Office is going to mail you paper work to fill out. Mail it back as soon as possible. If they have an earlier appointment become available they will call you. ) Bradley Reyes MD [STAFF PHYSICIAN] - 06/26/21 2:00 pm ([facility] Van transport will pick you up at 1:00pm) Billy Church MD [Primary Care Provider] - (pt to make follow up appointment) Disposition Disposition (needs filled in before D/C Order can be placed): Home Health Service Charges/Coding Visit Charges Inpatient E&M: 29573 Disch Hosp
[2021-06-22] MEDS: traMADol 50 MG Tablet PO (13:02)
== END 2021-06-22 14:15 | disposition home health service (06) | DRG 561 ==
PROVIDERS: Admitting Provider Internal Medicine; PCP Family Medicine; Visit Provider Internal Medicine
DX: S72.001D Fracture of unspecified part of neck of right femur, subsequent encounter for closed fracture with routine healing (principal); E11.40 Type 2 diabetes mellitus with diabetic neuropathy, unspecified; M06.079 Rheumatoid arthritis without rheumatoid factor, unspecified ankle and foot; I10 Essential (primary) hypertension; W19.XXXD Unspecified fall, subsequent encounter; M19.079 Primary osteoarthritis, unspecified ankle and foot; E78.5 Hyperlipidemia, unspecified; E89.0 Postprocedural hypothyroidism; S50.311D Abrasion of right elbow, subsequent encounter; Z79.01 Long term (current) use of anticoagulants; E66.9 Obesity, unspecified; Z79.899 Other long term (current) drug therapy; Z79.890 Hormone replacement therapy; Z68.35 Body mass index [BMI] 35.0-35.9, adult; R41.82 Altered mental status, unspecified
CPT/HCPCS: 36415; 70450; 80053; 81001; 82043; 82962; 85025; 92523; 97110; 97116; 97162; 97167; 97530; 97535; 97802; 99251; J7030; A4216; G0463

== ENCOUNTER 2021-06-26 15:44 | Emergency (ER) | payer MEDICARE, BC, SELFPAY ==
[2021-06-26] VITALS (7 sets, daily range): BP systolic 106–144; BP diastolic 50–74; PULSE 73–88; RESP 12–17; TEMP 36.7; O2SAT 91–100; BMI 36.5
--- NOTE | 2021-06-26 15:51 | ED.VIS.LOWEX ---
HPI History of Present Illness Chief Complaint: Lower Extremity Injury Informant: patient and EMS Narrative Narrative: 71-year-old female presenting with a right hip dislocation. Patient 3 weeks ago underwent hip replacement with Dr. Reyes. She had follow-up today and had her humera removed. She was getting out of her car at her residence when she felt her hip dislocate. Patient denies any problems with anesthesia in the past. She last had something to eat this morning for breakfast. She states that she does not ever been told that she is a difficult intubation. [facility] Medical History Allergic rhinitis Back pain due to injury Breast lump Chronic mental illness Goiter History of blood transfusion History of uterine fibroid HTN (hypertension) Kidney disease Kidney stones Neuropathy Obesity (BMI 30-39.9) Osteoarthritis Post-menopausal Rheumatoid arthritis Seasonal allergies Thyroid disease Home Medications hydroxychloroquine 200 mg PO BID 02/19/13 [History Last Taken 06/06/21] leflunomide 20 mg PO DAILY 02/19/13 [History Last Taken 06/06/21] cholecalciferol (vitamin D3) 50 mcg (2,000 unit) tablet 2,000 unit PO DAILY tab 01/22/17 [History Last Taken 06/06/21] loratadine-pseudoephedrine ER 10 mg-240 mg tablet,extended [id number] 1 tab PO QAM PRN 01/22/17 [History Last Taken 06/05/21] tramadol 50 mg tablet 50 mg PO Q6H tab 01/22/17 [History Last Taken 06/06/21] levothyroxine 150 mcg PO DAILY 06/06/21 [History Last Taken 06/06/21] metoprolol tartrate 50 mg PO DAILY 06/08/21 [History Last Taken Unknown] aspirin 81 mg PO DAILY 16 Days #32 cap 06/22/21 [Rx Last Taken Unknown] ipratropium bromide 2 spray NASAL TID #2 bottle 06/22/21 [Rx Last Taken Unknown] Allergy/AdvReac Type Severity Reaction Status Date / Time acetaminophen [From Vicodin] AdvReac Intermediate Vomiting Verified 06/26/21 15:45 amoxicillin trihydrate AdvReac Vomiting Verified 06/26/21 15:45 [From Augmentin] hydrocodone AdvReac Vomiting Verified 06/26/21 15:45 ANESTHESIA AdvReac Unknown Uncoded 06/26/21 15:45 Family History Mother Arthritis Cancer Sister Arthritis Diabetes Father Bleeding disorder Heart disease Hypertension Son Bleeding disorder Surgical History H/O lumpectomy H/O spinal fusion H/O thyroidectomy History of bilateral knee replacement History of spinal fusion History of tonsillectomy and adenoidectomy Social History household members: spouse Smoking Status: Never smoker alcohol intake: current alcohol intake frequency: a few times a month substance use type: does not use ROS ROS ED Constitutional Constitutional ED: Denies chills, fever(s) or weight loss Eyes Eyes: Denies change in vision or diplopia ENT ENT ED: Denies ear pain, rhinorrhea or sore throat Cardiovascular Cardiovascular: Denies chest pain, orthopnea, palpitations or racing heartbeat Respiratory/Chest Respiratory/Chest: Denies cough, dyspnea or orthopnea Gastrointestinal Gastrointestinal: Denies abdominal pain, diarrhea, nausea or vomiting Genitourinary Genitourinary ED: Denies dysuria, hematuria or urinary frequency Musculoskeletal Musculoskeletal: Reports other Details: See history of present illness ; Denies arthralgias or myalgias Integumentary Denies abscess or rash Neurologic Neurologic: Denies headache(s) or weakness Psychiatric Psychiatric: Denies anxiety, depression, suicidal ideation or suicidal thoughts Endocrine Endocrinology: Denies polydipsia, polyphagia or polyuria Allergic/Immunologic Allergic/Immunologic ED: Denies mouth swelling, tongue swelling or urticaria EXAM Physical Exam Const Vital Signs: 06/26/21 15:46 Temperature 98.0 F Temperature Source Oral Pulse Rate 88 Respiratory Rate 17 Blood Pressure 144/74 H Blood Pressure Mean 97 Oxygen Delivery Method Room Air Positive well nourished, well developed and obese General Appearance ED: well developed Nutritional Appearance: obese HEENT Reports normocephalic, head/scalp atraumatic and moist mucous membranes normocephalic and atraumatic Eyes PERRL and EOMs intact bilaterally Neck full ROM, no lymphadenopathy, supple and no JVD Resp normal respiratory effort and clear to auscultation bilaterally Cardio regular rate, regular rhythm and no murmurs GI normal to inspection, nondistended, normoactive bowel sounds and non-tender Palpation: soft Back/Spine no CVA tenderness and normal ROM Extremity Extremity Narrative: Right leg is shortened and rotated. Neurovascularly intact. General Extremety ED: Negative for edema General Extremity: Negative for edema Neuro oriented x3 and CN's II-XII intact bilaterally Sensorium / Orientation: alert Motor Exam: strength 5/5 throughout Psych mental status grossly normal Mood & Affect: Negative for depressed or tearful Skin no rashes or lesions noted and no wounds Discharge Plan Triage Chief Complaint: Lower Extremity Injury ED Provider: Ervin Toure Dx/Rx/DC Orders Prescriptions: No Action loratadine-pseudoephedrine [Claritin-D 24 Hour] 10-240 mg tablet extended release 24 hr 1 tab PO QAM PRN (Reason: Sinus Symptoms) RF: 0 tramadol 50 mg tablet 50 mg PO Q6H RF: 0 leflunomide 20 MG tablet 20 mg PO DAILY RF: 0 Hold Instructions: Resume on 06/22/21. hydroxychloroquine 200 MG tablet 200 mg PO BID RF: 0 cholecalciferol (vitamin D3) 2,000 UNIT tablet 2,000 unit PO DAILY RF: 0 levothyroxine 150 mcg tablet 150 mcg PO DAILY RF: 0 metoprolol tartrate 50 mg tablet 50 mg PO DAILY RF: 0 ipratropium bromide 42 mcg (0.06 %) [place],Non-Aerosol 2 spray NASAL TID Qty: 2 RF: 0 aspirin 81 mg capsule 81 mg PO DAILY 16 Days Qty: 32 RF: 0 Primary Care Provider: Billy Church
[2021-06-26] MEDS: Ondansetron 4 MG/2 ML Vial IV (16:12)
[2021-06-26] MEDS: Morphine 4 MG/ML Syringe IV (16:12)
--- NOTE | 2021-06-26 16:30 | RAD_ITS ---
EXAM: XR RIGHT HIP WITH PELVIS WHEN PERFORMED, 2 OR 3 VIEWS CLINICAL INDICATION: hip dislocation TECHNIQUE: Two or three views of the right hip with pelvis when performed. This report was created using [employer] report generation technology. COMPARISON: 05/31/2021 FINDINGS: BONES/JOINTS: There is been a superior dislocation of the acetabular and femoral component of a right hip prosthesis out of the [place] acetabulum. No fractures are identified. No destructive or sclerotic lesions. Note that overlapping bowel shadows may however obscure fine detail. Sacroiliac joint is unremarkable. No widening of the pubic symphysis. SOFT TISSUES: Unremarkable. No soft tissue swelling or gas. RAD/HIP, UNI W/ Pelvis 2-3 Views IMPRESSION: Superior dislocation of the acetabular and femoral component of the right hip prosthesis from the [place] right acetabulum. Electronically Signed: Alex Villafana MD at 17:02 EDT ,
[2021-06-26] MEDS: Propofol 200 MG/20 ML Vial IV BOLUS (17:15)
--- NOTE | 2021-06-26 17:50 | RAD_ITS ---
STUDY: POST-REDUCTION VIEWS OF THE RIGHT HIP OF 1800 HOURS ON 06/26/2021 REASON FOR EXAM: 71-year-old female with a dislocated right hip prosthesis. Post-reduction. TECHNIQUE: 2 views of the pelvis and hip. COMPARISON: None. FINDINGS: The dislocated right hip (demonstrated on x-rays of 1632 hours on 06/26/2021) is now relocated in anatomic position. There is no evidence of adjacent fractures. Mild demineralization is present. RAD/Hip Min 2 Views (Portable) IMPRESSION: 1. Previously dislocated right hip prosthesis is now relocated in anatomic position. 2. No adjacent fractures. Electronically Signed: Heber Vargas MD at 18:28 EDT ,
--- NOTE | 2021-06-26 19:02 | NURSING ---
CALLED PHYSICIANS AT 1902 ETA 2199
== END 2021-06-26 19:45 | disposition home or self-care (01) ==
PROVIDERS: Emergency Provider Emergency Medicine; PCP Family Medicine; Visit Provider Emergency Medicine
DX: T84.020A Dislocation of internal right hip prosthesis, initial encounter (principal); M06.9 Rheumatoid arthritis, unspecified; I10 Essential (primary) hypertension; Y79.2 Prosthetic and other implants, materials and accessory orthopedic devices associated with adverse incidents; Y92.810 Car as the place of occurrence of the external cause; E66.9 Obesity, unspecified; M19.90 Unspecified osteoarthritis, unspecified site; Z68.36 Body mass index [BMI] 36.0-36.9, adult; E07.9 Disorder of thyroid, unspecified; Z79.899 Other long term (current) drug therapy; Z79.890 Hormone replacement therapy; Z79.82 Long term (current) use of aspirin
CPT/HCPCS: 73502; 96374; 96375; 99284; J7030; A4216; J2405

== ENCOUNTER 2021-06-27 08:07 | Emergency (ER) | payer MEDICARE, BC, SELFPAY ==
[2021-06-27] VITALS (7 sets, daily range): BP systolic 108–166; BP diastolic 59–96; PULSE 74–82; RESP 10–21; TEMP 36.2; O2SAT 98–100; BMI 36.8
--- NOTE | 2021-06-27 08:33 | EDS_ITS ---
HPI History of Present Illness Chief Complaint: Lower Extremity Injury Detail of Chief Complaint: Right hip dislocation occurring this morning Informant: patient Narrative Narrative: Patient presents to the emergency department via EMS from home. Patient states that she was sitting on the toilet and her right hip popped out of place again. Patient was seen in the emergency department last evening for same and had a hip reduced. Patient states she had total hip replacement [address] Bradley Reyes. She denies falls or other injuries. Patient complaining of 10 out of 10 pain. Prior similar symptoms: Yes PFSH PFSH Medical History Allergic rhinitis Back pain due to injury Breast lump Chronic mental illness Goiter History of blood transfusion History of uterine fibroid HTN (hypertension) Kidney disease Kidney stones Neuropathy Obesity (BMI 30-39.9) Osteoarthritis Post-menopausal Rheumatoid arthritis Seasonal allergies Thyroid disease Home Medications hydroxychloroquine 200 mg PO BID 02/19/13 [History Last Taken 06/06/21] leflunomide 20 mg PO DAILY 02/19/13 [History Last Taken 06/06/21] cholecalciferol (vitamin D3) 50 mcg (2,000 unit) tablet 2,000 unit PO DAILY tab 01/22/17 [History Last Taken 06/06/21] loratadine-pseudoephedrine ER 10 mg-240 mg tablet,extended [id number] 1 tab PO QAM PRN 01/22/17 [History Last Taken 06/05/21] tramadol 50 mg tablet 50 mg PO Q6H tab 01/22/17 [History Last Taken 06/06/21] levothyroxine 150 mcg PO DAILY 06/06/21 [History Last Taken 06/06/21] metoprolol tartrate 50 mg PO DAILY 06/08/21 [History Last Taken Unknown] aspirin 81 mg PO DAILY 16 Days #32 cap 06/22/21 [Rx Last Taken Unknown] ipratropium bromide 2 spray NASAL TID #2 bottle 06/22/21 [Rx Last Taken Unknown] oxycodone-acetaminophen [Percocet] 1 tab PO Q6H PRN 3 Days #12 tab 06/26/21 [Rx Last Taken Unknown] Allergy/AdvReac Type Severity Reaction Status Date / Time acetaminophen [From Vicodin] AdvReac Intermediate Vomiting Verified 06/27/21 08:14 amoxicillin trihydrate AdvReac Vomiting Verified 06/27/21 08:14 [From Augmentin] hydrocodone AdvReac Vomiting Verified 06/27/21 08:14 ANESTHESIA AdvReac Unknown Uncoded 06/27/21 08:14 Family History Mother Arthritis Cancer Sister Arthritis Diabetes Father Bleeding disorder Heart disease Hypertension Son Bleeding disorder Surgical History H/O lumpectomy H/O spinal fusion H/O thyroidectomy History of bilateral knee replacement History of spinal fusion History of tonsillectomy and adenoidectomy Social History household members: spouse Smoking Status: Never smoker alcohol intake: current alcohol intake frequency: a few times a month substance use type: does not use ROS ROS ED Constitutional Constitutional ED: Reports systems reviewed and no addt'l complaints, except as documented; Denies body ache(s), change in weight or chills Eyes Eyes: Denies acute decrease in peripheral vision, change in vision, double vision or loss of vision ENT ENT ED: Reports none; Denies ear pain, lip swelling, loss taste/smell, neck pain, otalgia or sore throat Cardiovascular Cardiovascular: Reports none; Denies abdominal pain, chest pain with activity, leg edema, lightheadedness, palpitations, rapid heart rate or syncope Respiratory/Chest Respiratory/Chest: Reports none; Denies change in mental status, dry cough, dyspnea, hemoptysis, shortness of breath at rest or shortness of breath with exertion Gastrointestinal Gastrointestinal: Reports none; Denies abdominal pain, change in stool character, diarrhea, hematemesis, hematochezia, melena, rectal bleeding or vomiting Genitourinary Genitourinary ED: Reports none; Denies abdominal discomfort, anuria, dysuria, genital pain or polyuria Musculoskeletal Musculoskeletal: Reports none and other Details: Right hip pain ; Denies arthralgias, back pain, difficulty walking, extremity pain, muscle weakness or myalgias Integumentary Reports none; Denies abscess or rash Neurologic Neurologic: Reports none; Denies abnormal gait, confusion, focal weakness, frequent falls, headache(s), loss of vision, numbness, paresthesias, radicular pain, vertigo or weakness Psychiatric Psychiatric: Reports systems reviewed and no addt'l complaints, except as docume nted and none; Denies behavioral changes, confusion, difficulty concentrating, hallucinations, suicidal ideation, tactile hallucinations or visual hallucinations Endocrine Endocrinology: Denies none, cold intolerance, excessive sweating, fatigue or heat intolerance Hematologic/Lymphatic Hematologic/Lymphatic: Reports none; Denies anemia, easy bleeding or easy bruising Allergic/Immunologic Allergic/Immunologic ED: Denies as per HPI, none, lip swelling, mouth swelling, throat swelling, tongue swelling or hives EXAM Physical Exam Const Vital Signs: 06/27/21 08:10 06/27/21 09:51 06/27/21 09:56 Temperature 97.1 F L Temperature Source Temporal Pulse Rate 82 77 Pulse Rate [1 (Initial Baseline)] 74 Pulse Rate [2] 76 Pulse Rate [3] 75 Pulse Rate [4] 78 Pulse Rate [5] 74 Respiratory Rate 20 H 20 H Respiratory Rate [1 (Initial Baseline)] 10 L Respiratory Rate [2] 21 H Respiratory Rate [3] 17 Respiratory Rate [4] 17 Respiratory Rate [5] 13 Blood Pressure 166/96 H 127/69 H Blood Pressure [1 (Initial Baseline)] 127/69 H Blood Pressure [2] 130/78 H Blood Pressure [3] 114/65 Blood Pressure [4] 108/59 L Blood Pressure [5] 126/74 H Blood Pressure Mean 119 Pulse Ox 100 100 Oxygen Delivery Method Room Air Nasal Cannula Oxygen Delivery Method [1 (Initial Baseline)] Nasal Cannula Oxygen Delivery Method [2] Nasal Cannula Oxygen Delivery Method [3] Nasal Cannula Oxygen Delivery Method [4] Nasal Cannula Oxygen Delivery Method [5] Nasal Cannula Oxygen Flow Rate (L/min) 2 Oxygen Flow Rate (L/min) [1 (Initial Baseline)] 2 Oxygen Flow Rate (L/min) [2] 2 Oxygen Flow Rate (L/min) [3] 2 Oxygen Flow Rate (L/min) [4] 2 Oxygen Flow Rate (L/min) [5] 2 06/27/21 10:11 06/27/21 10:16 06/27/21 10:21 Temperature Temperature Source Pulse Rate Pulse Rate [1 (Initial Baseline)] Pulse Rate [2] Pulse Rate [3] Pulse Rate [4] Pulse Rate [5] Respiratory Rate Respiratory Rate [1 (Initial Baseline)] Respiratory Rate [2] Respiratory Rate [3] Respiratory Rate [4] Respiratory Rate [5] Blood Pressure Blood Pressure [1 (Initial Baseline)] Blood Pressure [2] Blood Pressure [3] Blood Pressure [4] Blood Pressure [5] Blood Pressure Mean Pulse Ox Oxygen Delivery Method Nasal Cannula Nasal Cannula Room Air Oxygen Delivery Method [1 (Initial Baseline)] Oxygen Delivery Method [2] Oxygen Delivery Method [3] Oxygen Delivery Method [4] Oxygen Delivery Method [5] Oxygen Flow Rate (L/min) 2 2 Oxygen Flow Rate (L/min) [1 (Initial Baseline)] Oxygen Flow Rate (L/min) [2] Oxygen Flow Rate (L/min) [3] Oxygen Flow Rate (L/min) [4] Oxygen Flow Rate (L/min) [5] Positive well nourished and well developed General Appearance ED: well developed and NAD HEENT Reports TM's clear and moist mucous membranes normocephalic and atraumatic; Negative for trauma or tenderness Tympanic Membrane ED: Yes TM's clear Eyes PERRL and EOMs intact bilaterally General Eye ED: Negative for pale conjunctiva or scleral icterus Neck no lymphadenopathy, supple and no JVD General: Negative for tenderness Chest Wall inspection of chest normal and palpation of chest normal Chest: Negative for tenderness Resp normal respiratory effort and clear to auscultation bilaterally Effort and Inspection: Negative for respiratory distress or pain with movement Auscultation: Negative for rhonchi, wheezes or diminished lung sounds Cardio regular rate, regular rhythm, S1 normal heart sound, S2 normal heart sound and no murmurs Peripheral Pulses: pulses 2+ throughout GI normal to inspection, nondistended, normoactive bowel sounds, soft to palpation, non-tender, non-distended and no masses Back/Spine no CVA tenderness and no thoracic nor lumbar tenderness Extremity Extremity Narrative: Patient with right hip tenderness on palpation. The right lower extremity is shortened and externally rotated. She is neurovascular intact distally. General Extremety ED: Negative for edema General Extremity: Negative for edema Neuro oriented x3, CN's II-XII intact bilaterally, no sensory deficits noted and gait normal Sensorium / Orientation: awake, alert, oriented to person, oriented to place and oriented to time Motor Exam: strength 5/5 throughout and strength abnormal Psych mental status grossly normal Skin no rashes or lesions noted and no wounds MDM MDM MDM Narrative Medical decision making narrative: IV line established on arrival. Patient was medicated morphine and Zofran. Patient was given consented for procedural sedation after x-rays indicated a right hip prosthesis dislocation. Patient was given propofol total of 80 mg IV with good sedation. With traction I was able to reduce the hip and post reduction x-rays showed good reduction. Procedural sedation time of 20 minutes. I will discuss case with orthopedics on-call as patient has not had to dislocations in the span of 12 hours. Patient case discussed with orthopedics. I had social problems specialist see the patient as well. It was decided to transfer patient to our transitional care unit for intensive therapy and if her hip were to dislocate again she would likely require a revision of her prosthesis. Patient in agreement. Radiography Diagnostic Testing: Clinical Impression(s) from Imaging Studies Hip/Pelvis X-Ray 06/27/21 09:05 IMPRESSION: Superior-posterior dislocation of the prosthetic hip joint. Electronically Signed: Brandon Sosa MD at 9:31 EDT , Hip/Pelvis X-Ray 06/27/21 09:59 IMPRESSION: Satisfactory reduction of the prosthetic right hip joint. Electronically Signed: Brandon Sosa MD at 11:06 EDT , 2 view x-rays of right hip obtained interpreted by myself as superior dislocation of the right hip prosthesis. Radiology was in agreement. Post reduction x-rays were obtained 2 views which showed good reduction on my interpretation and radiology in agreement. Discharge Plan Triage Chief Complaint: Lower Extremity Injury ED Provider: Shea Frost Dx/Rx/DC Orders Clinical Impression: Anterior dislocation of right hip Instructions: ED Dislocation Hip Traumatic Redu Prescriptions: No Action loratadine-pseudoephedrine [Claritin-D 24 Hour] 10-240 mg tablet extended release 24 hr 1 tab PO QAM PRN (Reason: Sinus Symptoms) RF: 0 tramadol 50 mg tablet 50 mg PO Q6H RF: 0 leflunomide 20 MG tablet 20 mg PO DAILY RF: 0 Hold Instructions: Resume on 06/22/21. hydroxychloroquine 200 MG tablet 200 mg PO BID RF: 0 cholecalciferol (vitamin D3) 2,000 UNIT tablet 2,000 unit PO DAILY RF: 0 levothyroxine 150 mcg tablet 150 mcg PO DAILY RF: 0 metoprolol tartrate 50 mg tablet 50 mg PO DAILY RF: 0 ipratropium bromide 42 mcg (0.06 %) [place],Non-Aerosol 2 spray NASAL TID Qty: 2 RF: 0 aspirin 81 mg capsule 81 mg PO DAILY 16 Days Qty: 32 RF: 0 oxycodone-acetaminophen [Percocet] 5-325 mg tablet 1 tab PO Q6H PRN (Reason: pain) 3 Days Qty: 12 RF: 0 Primary Care Provider: Billy Church Referrals: Bradley Reyes MD [STAFF PHYSICIAN] - 3-5 Days if not improving Billy Church MD [Primary Care Provider] - Disposition Disposition: Home, Self Care
[2021-06-27] MEDS: Morphine 4 MG/ML Syringe IV (08:44)
[2021-06-27] MEDS: Ondansetron 4 MG/2 ML Vial IV (08:44)
[2021-06-27] MEDS: 0.9% Normal Saline 1,000 ML 150 ML IV (08:45)
--- NOTE | 2021-06-27 09:05 | RAD_ITS ---
STUDY: X-RAY - PELVIS AND RIGHT HIP REASON FOR EXAM: Female, 71 years old. diss located hip TECHNIQUE: 3 views of the pelvis and hip. COMPARISON: Comparison is made with prior study 06/26/2021. FINDINGS: There is evidence of superior posterior dislocation of the prosthetic hip joint. RAD/HIP, UNI W/ Pelvis 2-3 Views IMPRESSION: Superior-posterior dislocation of the prosthetic hip joint. Electronically Signed: Brandon Sosa MD at 9:31 EDT ,
--- NOTE | 2021-06-27 09:31 | CASEMGMT ---
Social Work SW received call from pt mary Oscar Foll [phone]. Dayne asking what SW is doing doing to help his mother. Dayne stating mother kept telling him that the SW Keith would help her get a ramp into home. SW informed Dayne pt just arrived at ED and SW has not yet been assigned to pt. Pt was discharged from Inpatient Rehab a few weeks ago. Pt was able to complete stairs at that time. Outpt services through [facility] were arranged, PT/OT/ST/SW. ISAÍAS placed call to SANDEEP Flood at Home Health. Aleena visited pt and spouse yesterday morning. Completed assessment, offered medical alert which pt declined and discussed transportation concerns that pt was anxious about. No mention of need for ramp. Per Aleena, Pt and spouse were alert and oriented x3. Return call to mary Oscar and informed of Home health SW visit yesterday. ISAÍAS also informed him that ED SW or floor SW will follow up with him later today when a plan has been made for pt. Dayne appreciative of information and agreeable to wait until pt is assessed for return call. Handoff provided to ED ISAÍAS. SANDEEP Dias
--- NOTE | 2021-06-27 09:59 | RAD_ITS ---
STUDY: X-RAY - PELVIS AND RIGHT HIP REASON FOR EXAM: Female, 71 years old. Post reduction TECHNIQUE: 2 views of the pelvis and hip. COMPARISON: Comparison is made with prior study done earlier today. FINDINGS: There is satisfactory reduction of the prosthetic right hip joint. RAD/HIP, UNI W/ Pelvis 2-3 Views IMPRESSION: Satisfactory reduction of the prosthetic right hip joint. Electronically Signed: Brandon Sosa MD at 11:06 EDT ,
--- NOTE | 2021-06-27 10:14 | ED.RN ---
Procedure done by Dr Frost w/this RN & extra staff x2 for assistance. This RN remains in room with pt.
[2021-06-27] MEDS: Propofol 200 MG/20 ML Vial IV BOLUS (10:15)
--- NOTE | 2021-06-27 14:26 | CM.ED ---
Social Work Note Roxanna ARTIS called Aleena with TCU and TCU is able to accept pt today, pt will just need a COVID test. SW in to speak with pt. SW introduced self and role at [facility]. Pt is agreeable to going to TCU. SW informed pt that pt's son Dayne called in today and wanted an update on pt. Pt gave this worker permission to call her son Dayne to update. SW attempted to call pt's son Dayne, no answer, unable to leave voicemail. Tiana Duval RAISE DRILL OPERATOR, ORTHOTIST/PROSTHETIST
== END 2021-06-27 13:09 | disposition home or self-care (01) ==
PROVIDERS: Emergency Provider Emergency Medicine; PCP Family Medicine; Visit Provider Emergency Medicine
DX: T84.020A Dislocation of internal right hip prosthesis, initial encounter (principal); M06.9 Rheumatoid arthritis, unspecified; Z96.641 Presence of right artificial hip joint; I10 Essential (primary) hypertension; E66.9 Obesity, unspecified; Z68.36 Body mass index [BMI] 36.0-36.9, adult; Y79.2 Prosthetic and other implants, materials and accessory orthopedic devices associated with adverse incidents; M19.90 Unspecified osteoarthritis, unspecified site; E07.9 Disorder of thyroid, unspecified; Z79.899 Other long term (current) drug therapy; Z79.82 Long term (current) use of aspirin; Z79.890 Hormone replacement therapy
CPT/HCPCS: 27250; 73502; 87428; 96361; 96374; 96375; 99285; J2405

== ENCOUNTER 2021-06-27 13:34 | Inpatient (IN) | payer MEDICARE, BC, SELFPAY ==
[2021-06-27 13:44] VITALS: BP 140/71; PULSE 65; RESP 18; TEMP 36.7; O2SAT 100; BMI 36.8
[2021-06-27] MEDS: Ipratropium Bromide 0.06% NASAL SPRAY 2 SPRAY NASAL ×2 (16:07→19:47)
[2021-06-27] MEDS: Hydroxychloroquine 200 MG Tablet PO (18:02)
--- NOTE | 2021-06-27 21:58 | HP.PCM_ITS ---
HPI - General General Date of Admission: 06/27/21 HPI Narrative KULDEEP AGUIRRE, is a 71 Female who presents with followin06/08/2021 thru 06/22/2021 Admitted to after right hip fracture, underwent right hip hemiarthroplasty 06/07/[address] Bradley Reyes. 06/27/2021 Presented to [facility] Emergency Department with right hip dislocation. Sitting on toilet, right hip popped out, severe pain. Same thing happened 1 day prior, reduced in ED, and discharged home. Morphine, Zofran given, X-ray showed right hip dislocation. Propofol 80mg IV given, right hip dislocation reduced. 06/27/2021 Admit to TCU with debility, here for rehabilitation, strengthening, prior to discharge home with . Schedule appointment with Dr. Bradley Reyes to see if anything needs to be done differently to prevent recurrent dislocation right hip. [facility] Medical History Allergic rhinitis Back pain due to injury Breast lump Chronic mental illness Goiter History of blood transfusion History of uterine fibroid HTN (hypertension) Kidney disease Kidney stones Neuropathy Obesity (BMI 30-39.9) Osteoarthritis Post-menopausal Rheumatoid arthritis Seasonal allergies Thyroid disease Home Medications hydroxychloroquine 200 mg PO BID 02/19/13 [History Last Taken 06/06/21] leflunomide 20 mg PO DAILY 02/19/13 [History Last Taken 06/06/21] cholecalciferol (vitamin D3) 50 mcg (2,000 unit) tablet 2,000 unit PO DAILY tab 01/22/17 [History Last Taken 06/06/21] loratadine-pseudoephedrine ER 10 mg-240 mg tablet,extended [id number] 1 tab PO QAM PRN 01/22/17 [History Last Taken 06/05/21] tramadol 50 mg tablet 50 mg PO Q6H tab 01/22/17 [History Last Taken 06/06/21] levothyroxine 150 mcg PO DAILY 06/06/21 [History Last Taken 06/06/21] metoprolol tartrate 50 mg PO DAILY 06/08/21 [History Last Taken Unknown] oxycodone-acetaminophen [Percocet] 1 tab PO Q6H PRN 3 Days #12 tab 06/26/21 [Rx Last Taken Unknown] aspirin 81 mg PO DAILY 06/27/21 [History Last Taken Unknown] ipratropium bromide 2 spray NASAL TID 06/27/21 [History Last Taken Unknown] Allergy/AdvReac Type Severity Reaction Status Date / Time acetaminophen [From Vicodin] AdvReac Intermediate Vomiting Verified 06/27/21 08:14 amoxicillin trihydrate AdvReac Vomiting Verified 06/27/21 08:14 [From Augmentin] hydrocodone AdvReac Vomiting Verified 06/27/21 08:14 ANESTHESIA AdvReac Unknown Uncoded 06/27/21 08:14 Family History Mother Arthritis Cancer Sister Arthritis Diabetes Father Bleeding disorder Heart disease Hypertension Son Bleeding disorder Surgical History H/O lumpectomy H/O spinal fusion H/O thyroidectomy History of bilateral knee replacement History of spinal fusion History of tonsillectomy and adenoidectomy Social History household members: spouse Smoking Status: Never smoker alcohol intake: current alcohol intake frequency: a few times a month substance use type: does not use ROS Constitutional Constitutional: Denies chills, fever(s) or weight gain ENT HEENT: Denies headache(s), nasal congestion or nasal discharge Cardiovascular Cardiovascular: Denies chest pain or palpitations Respiratory/Chest Respiratory/Chest: Denies cough, excessive phlegm production or shortness of breath with exertion Gastrointestinal Gastrointestinal: Denies abdominal pain, nausea or vomiting Genitourinary Genitourinary: Denies dysuria Musculoskeletal Musculoskeletal: Reports other Details: Right hip pain. ; Denies joint pain or joint swelling Integumentary Integumentary: Denies rash or wounds Neurologic Neurologic: Denies focal weakness, numbness or tingling Psychiatric Psychiatric: Denies anxiety, auditory hallucinations, depression, homicidal ideation or suicidal ideation Vital Signs Vital Signs Vital Signs: 06/27/21 13:44 06/27/21 15:49 Temperature 98.1 F Temperature Source Temporal Pulse Rate 65 Pulse Rhythm Regular Pulse Strength Normal (2+) Respiratory Rate 18 Respiratory Effort Normal Non-Labored Respiratory Depth Normal Respiratory Pattern Normal Blood Pressure 140/71 H Blood Pressure Mean 94 Blood Pressure Source Monitor Blood Pressure Position Supine Blood Pressure Location Right Arm Pulse Ox 100 Oxygen Delivery Method Room Air Room Air Weight Weight: 116.29 kg Body Mass Index (BMI) 36.8 Physical Exam Const alert General Appearance: cooperative HEENT normocephalic Eyes PERRL and EOMs intact bilaterally Neck supple, no JVD and no carotid bruits Resp normal respiratory effort, normal air movement and clear to auscultation bilaterally Cardio regular rate and regular rhythm GI normal to inspection, nondistended, normoactive bowel sounds, non-tender and non-distended Extremity normal capillary refill General Extremity: Negative for edema Skin no rashes or lesions noted General Skin Exam: no breakdown Psych affect normal Appearance: appropriate Assessment & Plan Assessment/Plan (1) Debility: (2) Hip dislocation, right: (3) History of right hip hemiarthroplasty: (4) Closed right hip fracture: (5) Rheumatoid arthritis: QUALIFIERS: Rheumatoid arthritis location: multiple sites (6) Hypothyroidism: (7) Allergic rhinitis: (8) Vitamin D deficiency: PLAN: 71 year old female with below past medical history hospitalized recently right hip fracture, s/p right hip hemiarthroplasty, suffering recurrent right hip dislocation, admitted to TCU with debility, here for rehabilitation, strengthening, prior to discharge home with . * Debility - PT/OT. * Cognition - ST. * Pain - Tylenol 1000mg q6h prn pain (1-3), Tramadol 50mg q6h prn pain (4-5), Oxycodone 5mg q4h prn pain (6-10). * Bowel - Senna/colace 2 tablets bid, Dulcolax 10mg daily prn. * Adult immunization - Administer pneumonia vaccine, flu vaccine, covid19 vaccine as appropriate. * DVT prophylaxis - HAS-BLED score 2 intermediate risk of bleeding, Ady score 8 high risk of blood clots, overall risk high, Rx Xarelto 10mg daily x 30 days. * CV prophylaxis - Hold Aspirin 81mg daily while on Xarelto. * Rheumatoid arthritis - Plaquenil 200mg bid, Leucovorin 20mg daily. * Allergic rhinitis (severe) - Atrovent nasal spray 2 sprays tid, Loratadine 10mg daily prn, Sudafed 60mg 4x/day prn. * Hypothyroidism - Levothyroxine 150mcg daily. * Hypertension - Metoprolol 50mg daily. * Vitamin D deficiency - D3 50mcg daily.
[2021-06-28] MEDS: Ipratropium Bromide 0.06% NASAL SPRAY 2 SPRAY NASAL ×3 (05:15→21:20)
[2021-06-28 05:17] VITALS: BP 173/75; PULSE 82
[2021-06-28] MEDS: Cholecalciferol (VIT D3) 25 MCG TABLET (1,000 UNITS) 50 MCG PO (05:17)
[2021-06-28] MEDS: Metoprolol Tartrate 50 MG Tablet PO (05:17)
[2021-06-28] MEDS: Hydroxychloroquine 200 MG Tablet PO ×2 (05:17→17:51)
[2021-06-28] MEDS: Leflunomide 10 MG TABLET 20 MG PO (05:17)
[2021-06-28] MEDS: Levothyroxine 150 MCG Tablet PO (05:17)
[2021-06-28] MEDS: Senna/Docusate Sodium 1 Tablet 2 TABLET PO ×2 (05:19→17:50)
[2021-06-28 05:40] LABS: Absolute Lymphocyte Count 0.86 X10^3/uL (0.83-4.51); Absolute Neutrophil Count 3.5 X10^3/uL (2.0-7.7); Basophil# 0.04 X10^3/uL; Basophil% 0.8 % (0-1); Eosinophil# 0.02 X10^3/uL; Eosinophils% 0.4 % (0-5); Hematocrit 31.9 % (37-47); Lymphocyte # 0.86 X10^3/ul (0.83-4.51); Lymphocyte % 17.2 % (19-41); Mean Corp Hgb Conc 31.3 g/dL (32-36); Mean Corpuscular Hgb 27.5 pg (27.0-32.0); Mean Corpuscular Volume 87.6 fL (81-99); Mean Platelet Vol. 10.5 fl (6.2-12.0); Monocyte# 0.54 X10^3/uL; Monocyte% 10.8 % (0-10); NRBC Flagged by Analyzer 0 % (0-5); Neutrophil % 70.2 % (47-70); Platelet Count 237 K/mm3 (150-450); RBC Distribution Width CV 14.7 % (11.6-14.6); RBC Distribution Width SD 47.3 fl (35.1-43.9); Red Blood Count 3.64 M/mm3 (4.2-5.4)
[2021-06-28 06:06] LABS: Anion Gap 10 (5-15); BUN 13 mg/dL (7-18); BUN/Creat Ratio 15.9 RATIO (10-20); Calcium,Total 8.3 mg/dL (8.5-10.1); Chloride 112 mmol/L (98-107); Creatinine, Serum 0.82 mg/dL (0.55-1.02); EST Glomerular Filtration Rate 73 mL/min (>60); Est Glom Filt Rate - Afr Amer 88 mL/min (>60); Estimated Creatinine Clearance 67.06 ml/min; Glucose 72 mg/dL (74-106); Potassium 3.8 mmol/L (3.5-5.1); Sodium Level 141 mmol/L (136-145)
[2021-06-28] MEDS: traMADol 50 MG Tablet PO ×2 (08:07→21:19)
[2021-06-28] MEDS: Iron Polysaccharide Complex 150 MG CAPSULE PO (09:16)
[2021-06-28 10:00] VITALS: PULSE 79; RESP 18; O2SAT 97
[2021-06-28] MEDS: Tuberculin,Purif.prot.deriv. 50 TU/ML Vial 0.1 ML ID (11:37)
--- NOTE | 2021-06-28 12:00 | NURSING ---
left message for Dr. Bradley Reyes per Dr. Rios request of pt having 2 dislocations of hip since surgery. Spoke with Teresita in his office.
--- NOTE | 2021-06-28 14:37 | CHAPLAIN ---
Type of Pastoral Visit _x__ Initial Visit ___ Follow-up Visit ___ On-call Visit ___ General Patient Visit ___ Spiritual Assessment ___ Family Conference ___ Bereavement ___ Rapid Response ___ Code Blue ___ Other (describe below) Pastoral Care Referral From _x__ Patient ___ Family ___ Nurse ___ Physician ___ Assistant In Nursing ___ Mine Car Mechanic ___ Other (describe below) Sacrament/Intervention _x__ Active listening ___ Anointing ___ Nondenominational ___ Bereavement ___ Communion ___ Kristy exploration ___ ___ Life review _x__ Prayer ___ Reconciliation ___ Sacrament of Sick _x__ Supportive presence ___ Wedding ___ Other (describe below) Pastoral Comments patient has had some complications after surgery and is back to hospital, this time in TCU; pt reports that spouse is pretty discouraged and needs support; pt trying to do what is needed and to be patient; pt welcomes prayer and presence
[2021-06-28 16:00] VITALS: BP 127/63; PULSE 78; RESP 14; TEMP 36.3; O2SAT 98
--- NOTE | 2021-06-28 16:17 | NURSING ---
Teresita from Dr. Bradley Reyes's office called stating pt is to continue with hip precautions. If pt hip is to dislocate again, then Dr. Reyes's office will schedule an appt with Dr. Barahona.
--- NOTE | 2021-06-28 16:29 | PHA.CONS1_ITS ---
Progress Note - Pharmacy Subjective: TCU Admission Objective: Allergies acetaminophen [From Vicodin] Adverse Reaction (Intermediate, Verified 06/27/21 08:14) Vomiting amoxicillin trihydrate [From Augmentin] Adverse Reaction (Verified 06/27/21 08:14) Vomiting hydrocodone Adverse Reaction (Verified 06/27/21 08:14) Vomiting ANESTHESIA Adverse Reaction (Uncoded 06/27/21 08:14) Unknown MUSCLE PAIN, LEGS AND ARMS, SCREAMING Current Medications Generic Name Dose Route Start Last Admin Trade Name Freq PRN Reason Stop Dose Admin Acetaminophen 1,000 mg 06/27/21 17:34 Acetaminophen 500 Mg Tablet PO Q6H PRN PRN Pain Score 1-3 Bisacodyl 10 mg 06/27/21 22:20 Bisacodyl 5 Mg Tablet PO DAILY PRN Constipation Cholecalciferol 50 mcg 06/28/21 06:00 06/28/21 05:17 Cholecalciferol (Vit D3) 25 Mcg Tablet (1,000 Units) PO 50 mcg DAILY SHERRY Administration Hydroxychloroquine Sulfate 200 mg 06/27/21 18:00 06/28/21 05:17 Hydroxychloroquine 200 Mg Tablet PO 200 mg BID SHERRY Administration Ipratropium [place] 2 spray 06/27/21 14:00 06/28/21 05:15 Ipratropium [place] 0.06% Nasal [place] NASAL 2 spray TID SHERRY Administration Leflunomide 20 mg 06/28/21 06:00 06/28/21 05:17 Leflunomide 10 Mg Tablet PO 20 mg DAILY SHERRY Administration Levothyroxine Sodium 150 mcg 06/28/21 06:00 06/28/21 05:17 Levothyroxine 150 Mcg Tablet PO 150 mcg DAILY SHERRY Administration Loratadine 10 mg 06/27/21 14:11 Loratadine 10 Mg Tablet PO DAILY PRN PRN Sinus Symptoms Metoprolol Tartrate 50 mg 06/28/21 06:00 06/28/21 05:17 Metoprolol Tartrate 50 Mg Tablet PO 50 mg DAILY SHERRY Administration Oxycodone HCl 5 mg 06/27/21 22:14 Oxycodone 5 Mg Tablet PO Q4H PRN PRN Pain Score 6-10 Polysaccharide Iron Complex 150 mg 06/28/21 07:45 06/28/21 09:16 Iron Polysaccharide Complex 150 Mg Capsule PO 150 mg DAILY SHERRY Administration Pseudoephedrine HCl 60 mg 06/27/21 14:14 Pseudoephedrine 60 Mg Tablet PO 4X/DAY PRN PRN SINUS SYMPTOMS Senna/Docusate Sodium 2 tablet 06/28/21 06:00 06/28/21 05:19 Senna/Docusate Sodium 1 Tablet PO 2 tablet BID SHERRY Administration Tramadol HCl 50 mg 06/27/21 17:14 06/28/21 08:07 Tramadol 50 Mg Tablet PO 50 mg Q6H PRN Administration Pain Score 4-5 Tuberculin PPD 0.1 ml 07/05/21 10:00 Tuberculin,Purif.Prot.Deriv. 50 Tu/Ml Vial ID 07/05/21 10:01 X1 ONE Problem List (Last Reviewed 06/27/21 @ 22:[address] Kelton Rios MD) Vitamin D deficiency (Acute) Allergic rhinitis (Acute) Closed right hip fracture (Acute) Debility (Acute) Hip dislocation, right (Acute) History of right hip hemiarthroplasty (Acute) Hypothyroidism (Chronic) Rheumatoid arthritis (Chronic) Vital Signs Temp Pulse Resp BP Pulse Ox 98.1 F 79 18 173/75 H 97 06/27/21 13:44 06/28/21 10:00 06/28/21 10:00 06/28/21 05:17 06/28/21 10:00 Oxygen Delivery Method Room Air Weight: 116.29 kg Body Mass Index (BMI) 36.8 Sodium 141 mmol/L (136-145) 06/28/21 05:18 Potassium 3.8 mmol/L (3.5-5.1) 06/28/21 05:18 Chloride 112 mmol/L (98-107) H 06/28/21 05:18 Carbon Dioxide 19.0 mmol/L (21.0-32.0) L 06/28/21 05:18 Anion Gap 10 (5-15) 06/28/21 05:18 BUN 13 mg/dL (7-18) 06/28/21 05:18 Creatinine 0.82 mg/dL (0.55-1.02) 06/28/21 05:18 Est GFR (MDRD) Af Amer 88 mL/min (>60) 06/28/21 05:18 Est GFR (MDRD) Non-Af 73 mL/min (>60) 06/28/21 05:18 BUN/Creatinine Ratio 15.9 RATIO (10-20) 06/28/21 05:18 Glucose 72 mg/dL (74-106) L 06/28/21 05:18 Assessment/Plan: 1. Pain: acetaminophen 1000mg PO Q6H PRN pain 1-3, tramadol 50mg PO Q6H PRN pain 4-5 and oxycodone 5mg PO Q4H PRN pain 6-10. Please continue to monitor for increased pain, PRN usage, renal function, constipation and respiratory depression. 2. Rheumatoid arthritis: hydroxychloroquine 200mg PO BID and leflunomide 20mg PO daily. Please continue to monitor for S/S of RA and rash. 3. Allergic rhinitis (severe): ipratropium 0.06% nasal spray 2 sprays nasal TID, loratadine 10mg PO daily PRN sinus symptoms and pseudoephedrine 60mg PO 4x/day PRN sinus symptoms. Please continue to monitor for allergy symptoms and PRN usage. 4. Hypothyroidism: levothyroxine 150mcg PO daily. Please continue to monitor TSH (last 06/07/21) and for S/S of hypo/hyperthyroidism. *5. Hypertension: metoprolol tartrate 50mg PO daily. Please continue to monitor BP (last 173/75) and HR (last 79) This medication is usually dose twice daily. If blood pressure continue to be elevated please consider increasing to BID. Thanks. *6. Vitamin D deficiency: cholecalciferol 50mcg PO daily. Please consider ordering a vitamin D level (last 11/2019) if clinically appropriate. Thanks. 7. Iron deficiency (based on hemoglobin of 10g/dL): Ferrex 150mg PO DAILYCM. Please continue to monitor for constipation, dark stools and hemoglobin, Psychotropic Medications: None Unnecessary Medications: None Bowel Regimen: senna/docusate 2T PO BID and bisacodyl 10mg PO daily PRN constipation. Please continue to monitor for S/S of constipation and PRN usage. Date of Note:: 06/28/21
[2021-06-29 06:47] VITALS: BP 123/73; PULSE 81
[2021-06-29] MEDS: Leflunomide 10 MG TABLET 20 MG PO (06:47)
[2021-06-29] MEDS: Hydroxychloroquine 200 MG Tablet PO ×2 (06:47→18:03)
[2021-06-29] MEDS: Levothyroxine 150 MCG Tablet PO (06:47)
[2021-06-29] MEDS: Ipratropium Bromide 0.06% NASAL SPRAY 2 SPRAY NASAL ×3 (06:47→20:36)
[2021-06-29] MEDS: Cholecalciferol (VIT D3) 25 MCG TABLET (1,000 UNITS) 50 MCG PO (06:47)
[2021-06-29] MEDS: Iron Polysaccharide Complex 150 MG CAPSULE PO (06:47)
[2021-06-29] MEDS: Metoprolol Tartrate 50 MG Tablet PO (06:47)
[2021-06-29] MEDS: traMADol 50 MG Tablet PO ×2 (09:16→22:23)
--- NOTE | 2021-06-29 12:15 | NURSING ---
Addendum entered by Cassia Reyes 06/29/21 15:41: [facility] called and gave order to keep Knee Immobilizer in place when pt is up and moving and continue with hip precautions. Pt is to follow up with Dr. Erazo in 2 weeks and [facility] will call back with appt time d/t Dr. Erazo's Schedule. Original Note: Called Dr. Garrison office regarding Physical Therapy's questions regarding Knee immobilizer and follow up appt. Awaiting return call.
[2021-06-29 15:47] VITALS: BP 138/67; PULSE 78; RESP 16; TEMP 36.2; O2SAT 99
[2021-06-29 20:30] VITALS: PULSE 75; RESP 16; O2SAT 98
[2021-06-30] MEDS: Senna/Docusate Sodium 1 Tablet 2 TABLET PO (06:47)
[2021-06-30] MEDS: Ipratropium Bromide 0.06% NASAL SPRAY 2 SPRAY NASAL ×3 (06:47→20:09)
[2021-06-30] MEDS: Iron Polysaccharide Complex 150 MG CAPSULE PO (06:48)
[2021-06-30] MEDS: Leflunomide 10 MG TABLET 20 MG PO (06:48)
[2021-06-30] MEDS: Levothyroxine 150 MCG Tablet PO (06:48)
[2021-06-30] MEDS: Hydroxychloroquine 200 MG Tablet PO ×2 (06:49→17:30)
[2021-06-30] MEDS: Cholecalciferol (VIT D3) 25 MCG TABLET (1,000 UNITS) 50 MCG PO (06:49)
[2021-06-30 06:50] VITALS: BP 124/69; PULSE 79
[2021-06-30] MEDS: Metoprolol Tartrate 50 MG Tablet PO (06:50)
[2021-06-30] MEDS: traMADol 50 MG Tablet PO ×2 (07:57→19:44)
[2021-06-30 16:00] VITALS: BP 144/75; PULSE 66; RESP 16; TEMP 36.7; O2SAT 99
--- NOTE | 2021-06-30 18:04 | NURSING ---
Addendum entered by Tiana Kaba 06/30/21 18:37: RETURNED CALL. NOTIFIED OF POSITIVE COVID FROM R' AND STAFF MEMBER. Original Note: R' NOTIFIED OF STAFF MEMBER AND R' TESTING POSITIVE FOR COVID. CALLED , NO ANSWER. LEFT VM TO CALL BACK.
[2021-07-01] MEDS: Levothyroxine 150 MCG Tablet PO (06:16)
[2021-07-01] MEDS: Iron Polysaccharide Complex 150 MG CAPSULE PO (06:16)
[2021-07-01 06:17] VITALS: BP 128/69; PULSE 82
[2021-07-01] MEDS: Hydroxychloroquine 200 MG Tablet PO ×2 (06:17→17:16)
[2021-07-01] MEDS: Metoprolol Tartrate 50 MG Tablet PO (06:17)
[2021-07-01] MEDS: Leflunomide 10 MG TABLET 20 MG PO (06:17)
[2021-07-01] MEDS: Cholecalciferol (VIT D3) 25 MCG TABLET (1,000 UNITS) 50 MCG PO (06:17)
[2021-07-01] MEDS: traMADol 50 MG Tablet PO ×2 (06:21→20:47)
[2021-07-01] MEDS: Ipratropium Bromide 0.06% NASAL SPRAY 2 SPRAY NASAL ×3 (10:21→20:47)
[2021-07-01 14:23] VITALS: BP 106/71; PULSE 61; RESP 14; TEMP 36.3; O2SAT 97
[2021-07-01 21:00] VITALS: PULSE 79; RESP 14; O2SAT 98
[2021-07-02] MEDS: Ipratropium Bromide 0.06% NASAL SPRAY 2 SPRAY NASAL ×3 (05:53→22:22)
[2021-07-02] MEDS: Leflunomide 10 MG TABLET 20 MG PO (05:54)
[2021-07-02] MEDS: traMADol 50 MG Tablet PO ×2 (05:54→22:21)
[2021-07-02] MEDS: Levothyroxine 150 MCG Tablet PO (05:54)
[2021-07-02] MEDS: Hydroxychloroquine 200 MG Tablet PO ×2 (05:54→17:23)
[2021-07-02] MEDS: Cholecalciferol (VIT D3) 25 MCG TABLET (1,000 UNITS) 50 MCG PO (05:54)
[2021-07-02 05:57] VITALS: BP 112/72; PULSE 82
[2021-07-02] MEDS: Metoprolol Tartrate 50 MG Tablet PO (05:57)
[2021-07-02] MEDS: Iron Polysaccharide Complex 150 MG CAPSULE PO (05:59)
[2021-07-02 10:00] VITALS: PULSE 69; RESP 18; O2SAT 96
[2021-07-02 15:32] VITALS: BP 113/73; PULSE 70; RESP 18; TEMP 36.9; O2SAT 97
[2021-07-03] MEDS: Ipratropium Bromide 0.06% NASAL SPRAY 2 SPRAY NASAL ×3 (05:38→21:06)
[2021-07-03] MEDS: Iron Polysaccharide Complex 150 MG CAPSULE PO (05:38)
[2021-07-03] MEDS: Leflunomide 10 MG TABLET 20 MG PO (05:38)
[2021-07-03 05:39] VITALS: BP 124/61; PULSE 83
[2021-07-03] MEDS: Levothyroxine 150 MCG Tablet PO (05:39)
[2021-07-03] MEDS: Metoprolol Tartrate 50 MG Tablet PO (05:39)
[2021-07-03] MEDS: Cholecalciferol (VIT D3) 25 MCG TABLET (1,000 UNITS) 50 MCG PO (05:40)
[2021-07-03] MEDS: Hydroxychloroquine 200 MG Tablet PO ×2 (05:40→17:33)
[2021-07-03 14:51] VITALS: BP 144/79; PULSE 80; RESP 16; TEMP 36.6; O2SAT 97
[2021-07-03] MEDS: traMADol 50 MG Tablet PO (15:30)
[2021-07-03 21:16] VITALS: PULSE 80; RESP 18; O2SAT 98
[2021-07-04] MEDS: Ipratropium Bromide 0.06% NASAL SPRAY 2 SPRAY NASAL ×3 (06:07→21:06)
[2021-07-04] MEDS: Hydroxychloroquine 200 MG Tablet PO ×2 (06:08→18:01)
[2021-07-04] MEDS: Leflunomide 10 MG TABLET 20 MG PO (06:08)
[2021-07-04] MEDS: Cholecalciferol (VIT D3) 25 MCG TABLET (1,000 UNITS) 50 MCG PO (06:08)
[2021-07-04] MEDS: Iron Polysaccharide Complex 150 MG CAPSULE PO (06:08)
[2021-07-04] MEDS: Levothyroxine 150 MCG Tablet PO (06:08)
[2021-07-04 06:09] VITALS: BP 135/66; PULSE 82
[2021-07-04] MEDS: Metoprolol Tartrate 50 MG Tablet PO (06:09)
[2021-07-04] MEDS: traMADol 50 MG Tablet PO ×2 (06:12→21:04)
[2021-07-04 10:00] VITALS: PULSE 96; RESP 16; O2SAT 99
[2021-07-04 14:02] VITALS: BP 126/55; PULSE 80; RESP 20; TEMP 35.9; O2SAT 99
--- NOTE | 2021-07-04 14:35 | NURSING ---
Per Jess clinical staff at [facility], pt is allowed to shower standing up
--- NOTE | 2021-07-04 16:36 | CASEMGMT ---
Social Work BIMS and PHQ-9 completed for MDS assessment. Discussed pt's depressive symptoms. Pt got emotional and expressed feeling bad that she is not able to care for while his cancer now. She does not feel guilt or blame. Validated feelings and these events for her and her were not planned, and difficult to overcome. Pt also expressed her lack of appetite. Discussed counseling resources and start of medication. Pt agreeable - communication left for Dr. Rios. Discussed family support with son, dtr and neighbors. Inquired if she would like son and dtr listed as contacts to get updates. Pt agrees. Pt praised son for all of his help recently, and would like him to be present at care plan meeting tomorrow. SW to contact son to invite. Discussed cognition. Pt states she does not feel like her cognition has declined a lot, just with remembering little things. She explains she and her friends joke about needing to tell each other when they cannot remember things anymore. Reference son's involvement and support, inquired if she trusts/values sons feedback with cognition change. Pt agrees - she trusts both of her children and would want them to tell her if there is a change so she can get help and improve. Validated trust and willing to improve. Explored assistance pt may need at home - possibly AL with . Pt explained they built their home to live in it forever, but with changes to each other's health, it may need considered. Pt stated there should be a ramp being built. Agreed that will be helpful, and maybe pt can return home with additional help from hired caregivers. Pt already has epic interface analyst weekly. Discussed getting home deliver meals or groceries delivered since cannot drive and pt currently cannot. Pt agreed. SW to provide resources at POC tomorrow based on needs/wishes. Pt appreciative. Throughout conversation, pt asked name and role of this worker twice. Although, pt remembered this worker from recent stay on [place]. As pt holds longer conversations, it is noted to see more cognitive impairment. IDT will discuss PT/OT/ST findings in POC tomorrow. Contacted son and provided update on above conversation. Son will attend POC and expressed great appreciation for assistance. Son stated there will be a ramp installed this Saturday. SW to continue to follow. Birgit Howe ,DELROY MCKENZIEW
[2021-07-04] MEDS: Mirtazapine 15 MG Tablet 7.5 MG PO (21:06)
[2021-07-05 05:42] LABS: Absolute Lymphocyte Count 0.68 X10^3/uL (0.83-4.51); Absolute Neutrophil Count 2.7 X10^3/uL (2.0-7.7); Basophil# 0.03 X10^3/uL; Basophil% 0.7 % (0-1); Eosinophil# 0.14 X10^3/uL; Eosinophils% 3.4 % (0-5); Hematocrit 30.8 % (37-47); Hemoglobin 9.6 g/dL (12.0-15.0); Lymphocyte # 0.68 X10^3/ul (0.83-4.51); Lymphocyte % 16.3 % (19-41); Mean Corp Hgb Conc 31.2 g/dL (32-36); Mean Corpuscular Hgb 27.5 pg (27.0-32.0); Mean Corpuscular Volume 88.3 fL (81-99); Mean Platelet Vol. 10.2 fl (6.2-12.0); Monocyte# 0.57 X10^3/uL; Monocyte% 13.7 % (0-10); NRBC Flagged by Analyzer 0 % (0-5); Neutrophil # 2.73 X10^3/uL (2.7-7.7); Neutrophil % 65.4 % (47-70); Platelet Count 145 K/mm3 (150-450); RBC Distribution Width CV 14.7 % (11.6-14.6); RBC Distribution Width SD 47.6 fl (35.1-43.9); Red Blood Count 3.49 M/mm3 (4.2-5.4); White Blood Count 4.2 K/mm3 (4.4-11.0)
[2021-07-05] MEDS: Ipratropium Bromide 0.06% NASAL SPRAY 2 SPRAY NASAL ×3 (05:46→20:42)
[2021-07-05 05:47] VITALS: BP 135/76; PULSE 80
[2021-07-05] MEDS: Hydroxychloroquine 200 MG Tablet PO ×2 (05:47→18:07)
[2021-07-05] MEDS: Cholecalciferol (VIT D3) 25 MCG TABLET (1,000 UNITS) 50 MCG PO (05:47)
[2021-07-05] MEDS: Leflunomide 10 MG TABLET 20 MG PO (05:47)
[2021-07-05] MEDS: Iron Polysaccharide Complex 150 MG CAPSULE PO (05:47)
[2021-07-05] MEDS: Levothyroxine 150 MCG Tablet PO (05:47)
[2021-07-05] MEDS: Metoprolol Tartrate 50 MG Tablet PO (05:47)
[2021-07-05 06:06] LABS: Anion Gap 5 (5-15); BUN 12 mg/dL (7-18); BUN/Creat Ratio 13.2 RATIO (10-20); Calcium,Total 7.8 mg/dL (8.5-10.1); Chloride 109 mmol/L (98-107); Creatinine, Serum 0.91 mg/dL (0.55-1.02); EST Glomerular Filtration Rate 65 mL/min (>60); Est Glom Filt Rate - Afr Amer 78 mL/min (>60); Estimated Creatinine Clearance 60.43 ml/min; Glucose 108 mg/dL (74-106); Potassium 3.9 mmol/L (3.5-5.1); Sodium Level 140 mmol/L (136-145)
--- NOTE | 2021-07-05 09:24 | CASEMGMT ---
Social Work IDT met with patient, and son for care plan meeting. Discussed patient's progress in PT/OT/ST and nursing. Pt making progress. Explained Medicare benefit. Encouraged to contact secondary insurance to ensure copay coverage. Pt is using maxA for LE while following hip precautions and knee immobilizer. Discusses hiring additional assistance in the home, home delivered meals, [employer]. Updated pt that Dr. Rios started pt on Remeron, however, still offered counseling at DC. Provided resources for all options. Son has ramp being installed tomorrow to enter home. Pt has f/u appt with ortho 07/13 - son will attend with her. ST explained and provided outcome of cognitive assessment - BCAT. Pt has neurology appt scheduled with Dr. Barahona 09/11. SW to continue to follow to assist with DC plans. Birgit Howe, DELROY CATERPILLAR MECHANIC
[2021-07-05] MEDS: traMADol 50 MG Tablet PO ×2 (10:31→18:05)
[2021-07-05] MEDS: Tuberculin,Purif.prot.deriv. 50 TU/ML Vial 0.1 ML ID (10:32)
--- NOTE | 2021-07-05 12:26 | NURSING ---
Verified Full Code with pt.
[2021-07-05 15:15] VITALS: BP 134/78; PULSE 74; RESP 16; TEMP 36.7; O2SAT 92
--- NOTE | 2021-07-05 15:57 | NURSING ---
Cattle Killer Note: Interview and Section F MDS complete. Activity CAA and care plan complete.
[2021-07-05 21:00] VITALS: PULSE 74; RESP 14; O2SAT 94
--- NOTE | 2021-07-06 00:54 | NURSING ---
Pt. refused Remeron as ordered this HS, stating it made me feel foggy, I don't want to take it anymore. Written communication left for Dr. Rios review in AM regarding patient request
[2021-07-06 06:03] VITALS: BP 100/61; PULSE 76
[2021-07-06] MEDS: Metoprolol Tartrate 50 MG Tablet PO (06:03)
[2021-07-06] MEDS: Hydroxychloroquine 200 MG Tablet PO ×2 (06:03→17:49)
[2021-07-06] MEDS: Leflunomide 10 MG TABLET 20 MG PO (06:03)
[2021-07-06] MEDS: Levothyroxine 150 MCG Tablet PO (06:03)
[2021-07-06] MEDS: Cholecalciferol (VIT D3) 25 MCG TABLET (1,000 UNITS) 50 MCG PO (06:03)
[2021-07-06] MEDS: Ipratropium Bromide 0.06% NASAL SPRAY 2 SPRAY NASAL ×3 (06:04→20:38)
[2021-07-06] MEDS: Iron Polysaccharide Complex 150 MG CAPSULE PO (06:04)
[2021-07-06 10:24] VITALS: PULSE 51; RESP 16; O2SAT 95
--- NOTE | 2021-07-06 11:10 | CASEMGMT ---
Social Work Communication to since Pat was DC'd, pt states sleeping is not an issue, her mood is. Left communication to Dr. Rios clarifying need for medication. Birgit Howe, GYMNASIUM TEACHER TRAILER CHIEF
--- NOTE | 2021-07-06 11:30 | MDS.RN ---
Information for the mds was obtained from review of the clinical record, interview of resident, staff, and direct observation of resident's care.
[2021-07-06 14:33] VITALS: BP 108/60; PULSE 68; RESP 16; TEMP 36.1; O2SAT 99
[2021-07-06] MEDS: traMADol 50 MG Tablet PO (17:53)
[2021-07-07 05:49] LABS: Hematocrit 30.3 % (37-47); Hemoglobin 9.6 g/dL (12.0-15.0)
[2021-07-07] MEDS: Ipratropium Bromide 0.06% NASAL SPRAY 2 SPRAY NASAL ×3 (07:38→21:38)
[2021-07-07 07:39] VITALS: BP 130/91; PULSE 91
[2021-07-07] MEDS: Metoprolol Tartrate 50 MG Tablet PO (07:39)
[2021-07-07] MEDS: Leflunomide 10 MG TABLET 20 MG PO (07:39)
[2021-07-07] MEDS: Cholecalciferol (VIT D3) 25 MCG TABLET (1,000 UNITS) 50 MCG PO (07:40)
[2021-07-07] MEDS: Levothyroxine 150 MCG Tablet PO (07:40)
[2021-07-07] MEDS: Hydroxychloroquine 200 MG Tablet PO ×2 (07:40→16:51)
[2021-07-07] MEDS: Iron Polysaccharide Complex 150 MG CAPSULE PO (07:41)
[2021-07-07] MEDS: traMADol 50 MG Tablet PO ×2 (07:43→21:36)
[2021-07-07 14:13] VITALS: BP 114/67; PULSE 63; RESP 16; TEMP 36.7; O2SAT 91
[2021-07-07] MEDS: Senna/Docusate Sodium 1 Tablet 2 TABLET PO (16:51)
[2021-07-07 22:00] VITALS: PULSE 67; RESP 18; O2SAT 92
[2021-07-08] MEDS: Ipratropium Bromide 0.06% NASAL SPRAY 2 SPRAY NASAL ×3 (05:46→22:26)
[2021-07-08 05:47] VITALS: BP 125/70; PULSE 79
[2021-07-08] MEDS: Leflunomide 10 MG TABLET 20 MG PO (05:47)
[2021-07-08] MEDS: FLUoxetine 10 MG Capsule PO (05:47)
[2021-07-08] MEDS: Metoprolol Tartrate 50 MG Tablet PO (05:47)
[2021-07-08] MEDS: Hydroxychloroquine 200 MG Tablet PO ×2 (05:47→17:40)
[2021-07-08] MEDS: Levothyroxine 150 MCG Tablet PO (05:47)
[2021-07-08] MEDS: Cholecalciferol (VIT D3) 25 MCG TABLET (1,000 UNITS) 50 MCG PO (05:47)
[2021-07-08] MEDS: Iron Polysaccharide Complex 150 MG CAPSULE PO (05:48)
[2021-07-08 10:00] VITALS: PULSE 64; O2SAT 96
[2021-07-08] MEDS: traMADol 50 MG Tablet PO (10:29)
--- NOTE | 2021-07-08 10:54 | NURSING ---
Wheel Chair instant powder supervisor for appt 07/13/21 at [facility] conformation number [id number]. Schedule pickler helper time 1300 may run a few min late but scheduled p/u 1hr prior to appt.
[2021-07-08 16:00] VITALS: BP 133/77; PULSE 67; RESP 16; TEMP 36.6; O2SAT 97
[2021-07-09] MEDS: Leflunomide 10 MG TABLET 20 MG PO (06:04)
[2021-07-09] MEDS: Ipratropium Bromide 0.06% NASAL SPRAY 2 SPRAY NASAL ×3 (06:04→20:35)
[2021-07-09] MEDS: traMADol 50 MG Tablet PO ×2 (06:05→20:34)
[2021-07-09] MEDS: Cholecalciferol (VIT D3) 25 MCG TABLET (1,000 UNITS) 50 MCG PO (06:06)
[2021-07-09] MEDS: FLUoxetine 10 MG Capsule PO (06:06)
[2021-07-09] MEDS: Hydroxychloroquine 200 MG Tablet PO ×2 (06:06→17:35)
[2021-07-09 06:07] VITALS: BP 121/72; PULSE 81
[2021-07-09] MEDS: Iron Polysaccharide Complex 150 MG CAPSULE PO (06:07)
[2021-07-09] MEDS: Metoprolol Tartrate 50 MG Tablet PO (06:07)
[2021-07-09] MEDS: Levothyroxine 150 MCG Tablet PO (06:08)
[2021-07-09 16:00] VITALS: BP 134/71; PULSE 61; RESP 16; TEMP 36.6; O2SAT 96
[2021-07-09 23:04] VITALS: PULSE 62; RESP 18; O2SAT 96
[2021-07-10] MEDS: Ipratropium Bromide 0.06% NASAL SPRAY 2 SPRAY NASAL ×3 (06:07→19:56)
[2021-07-10 06:08] VITALS: BP 143/78; PULSE 80
[2021-07-10] MEDS: Metoprolol Tartrate 50 MG Tablet PO (06:08)
[2021-07-10] MEDS: Cholecalciferol (VIT D3) 25 MCG TABLET (1,000 UNITS) 50 MCG PO (06:08)
[2021-07-10] MEDS: Levothyroxine 150 MCG Tablet PO (06:08)
[2021-07-10] MEDS: Leflunomide 10 MG TABLET 20 MG PO (06:08)
[2021-07-10] MEDS: Iron Polysaccharide Complex 150 MG CAPSULE PO (06:08)
[2021-07-10] MEDS: FLUoxetine 10 MG Capsule PO (06:08)
[2021-07-10] MEDS: Hydroxychloroquine 200 MG Tablet PO ×2 (06:09→18:07)
[2021-07-10] MEDS: traMADol 50 MG Tablet PO (06:11)
[2021-07-10 14:06] VITALS: BP 131/67; PULSE 65; RESP 20; TEMP 36; O2SAT 96
[2021-07-11] MEDS: Ipratropium Bromide 0.06% NASAL SPRAY 2 SPRAY NASAL ×3 (06:17→20:24)
[2021-07-11] MEDS: traMADol 50 MG Tablet PO ×2 (06:18→20:23)
[2021-07-11] MEDS: Cholecalciferol (VIT D3) 25 MCG TABLET (1,000 UNITS) 50 MCG PO (06:18)
[2021-07-11 06:19] VITALS: BP 142/69; PULSE 80
[2021-07-11] MEDS: Hydroxychloroquine 200 MG Tablet PO ×2 (06:19→17:34)
[2021-07-11] MEDS: Metoprolol Tartrate 50 MG Tablet PO (06:19)
[2021-07-11] MEDS: Levothyroxine 150 MCG Tablet PO (06:19)
[2021-07-11] MEDS: Leflunomide 10 MG TABLET 20 MG PO (06:19)
[2021-07-11] MEDS: Iron Polysaccharide Complex 150 MG CAPSULE PO (06:19)
[2021-07-11 11:24] VITALS: PULSE 72; RESP 20; TEMP 36.5; O2SAT 97
[2021-07-11 13:43] VITALS: BP 115/64
[2021-07-11 20:00] VITALS: PULSE 70; RESP 16; O2SAT 97
[2021-07-12 06:02] LABS: Absolute Lymphocyte Count 0.85 X10^3/uL (0.83-4.51); Absolute Neutrophil Count 2.6 X10^3/uL (2.0-7.7); Basophil# 0.05 X10^3/uL; Basophil% 1.2 % (0-1); Eosinophil# 0.12 X10^3/uL; Eosinophils% 2.9 % (0-5); Hematocrit 31.1 % (37-47); Hemoglobin 9.9 g/dL (12.0-15.0); Lymphocyte # 0.85 X10^3/ul (0.83-4.51); Lymphocyte % 20.3 % (19-41); Mean Corp Hgb Conc 31.8 g/dL (32-36); Mean Corpuscular Hgb 27.9 pg (27.0-32.0); Mean Corpuscular Volume 87.6 fL (81-99); Mean Platelet Vol. 10.1 fl (6.2-12.0); Monocyte# 0.52 X10^3/uL; Monocyte% 12.4 % (0-10); NRBC Flagged by Analyzer 0 % (0-5); Platelet Count 198 K/mm3 (150-450); RBC Distribution Width CV 14.6 % (11.6-14.6); RBC Distribution Width SD 46.9 fl (35.1-43.9); Red Blood Count 3.55 M/mm3 (4.2-5.4); White Blood Count 4.2 K/mm3 (4.4-11.0)
[2021-07-12] MEDS: Iron Polysaccharide Complex 150 MG CAPSULE PO (06:17)
[2021-07-12] MEDS: Ipratropium Bromide 0.06% NASAL SPRAY 2 SPRAY NASAL ×3 (06:17→19:54)
[2021-07-12] MEDS: traMADol 50 MG Tablet PO ×2 (06:17→19:56)
[2021-07-12] MEDS: Leflunomide 10 MG TABLET 20 MG PO (06:18)
[2021-07-12] MEDS: Hydroxychloroquine 200 MG Tablet PO ×2 (06:18→17:45)
[2021-07-12] MEDS: Levothyroxine 150 MCG Tablet PO (06:18)
[2021-07-12] MEDS: Cholecalciferol (VIT D3) 25 MCG TABLET (1,000 UNITS) 50 MCG PO (06:18)
[2021-07-12 06:20] VITALS: BP 123/68; PULSE 76
[2021-07-12] MEDS: Metoprolol Tartrate 50 MG Tablet PO (06:20)
[2021-07-12 06:29] LABS: Anion Gap 6 (5-15); BUN 10 mg/dL (7-18); BUN/Creat Ratio 11.5 RATIO (10-20); Calcium,Total 7.8 mg/dL (8.5-10.1); Chloride 111 mmol/L (98-107); Creatinine, Serum 0.87 mg/dL (0.55-1.02); EST Glomerular Filtration Rate 68 mL/min (>60); Est Glom Filt Rate - Afr Amer 82 mL/min (>60); Estimated Creatinine Clearance 63.21 ml/min; Glucose 108 mg/dL (74-106); Potassium 3.5 mmol/L (3.5-5.1); Sodium Level 141 mmol/L (136-145)
[2021-07-12 12:29] VITALS: PULSE 64; RESP 20; TEMP 36.6; O2SAT 98
[2021-07-12 13:44] VITALS: BP 100/56
[2021-07-13] MEDS: Hydroxychloroquine 200 MG Tablet PO ×2 (06:11→18:26)
[2021-07-13] MEDS: Ipratropium Bromide 0.06% NASAL SPRAY 2 SPRAY NASAL ×3 (06:11→20:28)
[2021-07-13] MEDS: Cholecalciferol (VIT D3) 25 MCG TABLET (1,000 UNITS) 50 MCG PO (06:11)
[2021-07-13] MEDS: Leflunomide 10 MG TABLET 20 MG PO (06:11)
[2021-07-13] MEDS: Iron Polysaccharide Complex 150 MG CAPSULE PO (06:12)
[2021-07-13] MEDS: Levothyroxine 150 MCG Tablet PO (06:12)
[2021-07-13] MEDS: traMADol 50 MG Tablet PO ×2 (06:14→20:26)
[2021-07-13 06:16] VITALS: BP 121/65; PULSE 82
[2021-07-13] MEDS: Metoprolol Tartrate 50 MG Tablet PO (06:16)
[2021-07-13 15:27] VITALS: BP 133/78; PULSE 74; RESP 16; TEMP 36.4; O2SAT 96
[2021-07-13 20:45] VITALS: PULSE 77; RESP 18; O2SAT 97
[2021-07-14] MEDS: Cholecalciferol (VIT D3) 25 MCG TABLET (1,000 UNITS) 50 MCG PO (06:38)
[2021-07-14] MEDS: traMADol 50 MG Tablet PO ×2 (06:38→20:50)
[2021-07-14 06:39] VITALS: BP 141/81; PULSE 78
[2021-07-14] MEDS: Ipratropium Bromide 0.06% NASAL SPRAY 2 SPRAY NASAL ×3 (06:39→20:50)
[2021-07-14] MEDS: Hydroxychloroquine 200 MG Tablet PO ×2 (06:39→18:46)
[2021-07-14] MEDS: Iron Polysaccharide Complex 150 MG CAPSULE PO (06:39)
[2021-07-14] MEDS: Leflunomide 10 MG TABLET 20 MG PO (06:39)
[2021-07-14] MEDS: Metoprolol Tartrate 50 MG Tablet PO (06:39)
[2021-07-14] MEDS: Levothyroxine 150 MCG Tablet PO (06:39)
[2021-07-14 15:49] VITALS: BP 147/72; PULSE 66; RESP 16; TEMP 36.5; O2SAT 96
[2021-07-15 05:32] VITALS: BP 127/73; PULSE 75
[2021-07-15] MEDS: Hydroxychloroquine 200 MG Tablet PO ×2 (05:32→17:14)
[2021-07-15] MEDS: Levothyroxine 150 MCG Tablet PO (05:32)
[2021-07-15] MEDS: Leflunomide 10 MG TABLET 20 MG PO (05:32)
[2021-07-15] MEDS: Iron Polysaccharide Complex 150 MG CAPSULE PO (05:32)
[2021-07-15] MEDS: Ipratropium Bromide 0.06% NASAL SPRAY 2 SPRAY NASAL ×3 (05:32→22:20)
[2021-07-15] MEDS: Metoprolol Tartrate 50 MG Tablet PO (05:32)
[2021-07-15] MEDS: Cholecalciferol (VIT D3) 25 MCG TABLET (1,000 UNITS) 50 MCG PO (05:32)
[2021-07-15 13:55] VITALS: BP 127/58; PULSE 74; RESP 18; TEMP 36.5; O2SAT 98
[2021-07-15] MEDS: traMADol 50 MG Tablet PO (17:14)
[2021-07-16] MEDS: Iron Polysaccharide Complex 150 MG CAPSULE PO (06:07)
[2021-07-16] MEDS: Hydroxychloroquine 200 MG Tablet PO ×2 (06:07→17:57)
[2021-07-16 06:08] VITALS: BP 132/71; PULSE 75
[2021-07-16] MEDS: Cholecalciferol (VIT D3) 25 MCG TABLET (1,000 UNITS) 50 MCG PO (06:08)
[2021-07-16] MEDS: Metoprolol Tartrate 50 MG Tablet PO (06:08)
[2021-07-16] MEDS: Levothyroxine 150 MCG Tablet PO (06:08)
[2021-07-16] MEDS: Leflunomide 10 MG TABLET 20 MG PO (06:09)
[2021-07-16] MEDS: Ipratropium Bromide 0.06% NASAL SPRAY 2 SPRAY NASAL ×3 (06:09→21:07)
[2021-07-16] MEDS: traMADol 50 MG Tablet PO ×2 (06:15→21:07)
[2021-07-16 10:00] VITALS: PULSE 59; RESP 18; O2SAT 97
[2021-07-16 15:24] VITALS: BP 147/75; PULSE 67; RESP 18; TEMP 36.3; O2SAT 95
[2021-07-17] MEDS: Leflunomide 10 MG TABLET 20 MG PO (06:03)
[2021-07-17] MEDS: Ipratropium Bromide 0.06% NASAL SPRAY 2 SPRAY NASAL ×3 (06:04→19:37)
[2021-07-17 06:05] VITALS: BP 135/77; PULSE 75
[2021-07-17] MEDS: Hydroxychloroquine 200 MG Tablet PO ×2 (06:05→17:48)
[2021-07-17] MEDS: Levothyroxine 150 MCG Tablet PO (06:05)
[2021-07-17] MEDS: Metoprolol Tartrate 50 MG Tablet PO (06:05)
[2021-07-17] MEDS: Cholecalciferol (VIT D3) 25 MCG TABLET (1,000 UNITS) 50 MCG PO (06:05)
[2021-07-17] MEDS: Iron Polysaccharide Complex 150 MG CAPSULE PO (06:06)
[2021-07-17 13:15] VITALS: BP 109/61; PULSE 73; RESP 18; TEMP 36.3; O2SAT 95
--- NOTE | 2021-07-17 14:51 | CASEMGMT ---
Social Work Spoke with pt about DC plans/date. Pt/IDT agreeable to DC home 07/23. Son can transport. Pt prefers [facility] again. Referral made for PT/OT. [place] [facility] [place], bariatric BSC and tall FWW. Plan: DC home with 07/23, [facility] PT/OT, BSC, FWW Birgit Howe, BUSINESS DEVELOPMENT RECRUITER MANAGER ELECTRICAL
--- NOTE | 2021-07-17 19:21 | DS.PCM_ITS ---
Providers Date of Admission: 06/27/21 Primary Care Physician: Dr. Billy Church MD Reason For Visit: HIP PAIN Diagnosis Discharge Diagnosis (1) Debility: Status: Acute Code(s): R53.81 - Other malaise (2) Hip dislocation, right: Status: Inactive Code(s): S73.004A - Unspecified dislocation of right hip, initial encounter (3) History of right hip hemiarthroplasty: Status: Acute Code(s): Z96.641 - Presence of right artificial hip joint (4) Closed right hip fracture: Status: Acute Code(s): S72.001A - Fracture of unspecified part of neck of right femur, initial encounter for closed fracture (5) Rheumatoid arthritis: Code(s): M06.9 - Rheumatoid arthritis, unspecified Qualifiers: Rheumatoid arthritis location: multiple sites (6) Hypothyroidism: Code(s): E03.9 - Hypothyroidism, unspecified (7) Allergic rhinitis: Status: Acute Code(s): J30.9 - Allergic rhinitis, unspecified (8) Vitamin D deficiency: Status: Acute Code(s): E55.9 - Vitamin D deficiency, unspecified Medications at Discharge Home Medications hydroxychloroquine 200 mg PO BID 02/19/13 leflunomide 20 mg PO DAILY 02/19/13 cholecalciferol (vitamin D3) 50 mcg (2,000 unit) tablet 2,000 unit PO DAILY tab 01/22/17 loratadine-pseudoephedrine ER 10 mg-240 mg tablet,extended [id number] 1 tab PO QAM PRN 01/22/17 levothyroxine 150 mcg PO DAILY 06/06/21 ipratropium bromide 2 spray NASAL TID 30 Days #15 ml 07/17/21 metoprolol tartrate 50 mg PO DAILY 30 Days #30 tab 07/17/21 polysaccharide iron complex [Ferrex 150] 150 mg PO DAILY 30 Days #30 cap 07/17/21 tramadol 50 mg PO Q6H 7 Days #28 tab 07/17/21 Hospital Course Operations None Procedures None Summary of Care Provided Minutes Spent on Discharge: 35 Hospital Course: 71 year old female with below past medical history hospit alized recently right hip fracture, s/p right hip hemiarthroplasty, suffering recurrent right hip dislocation, admitted to TCU with debility, here for rehabilitation, strengthening, prior to discharge home with . Discharge home with 07/23/2021, [facility] PT/OT, Beside commode, Front wheeled walker. Physical Exam Const alert General Appearance: cooperative HEENT normocephalic Eyes PERRL and EOMs intact bilaterally Neck supple, no JVD and no carotid bruits Resp normal respiratory effort, normal air movement and clear to auscultation bilaterally Cardio regular rate and regular rhythm GI normal to inspection, nondistended, normoactive bowel sounds, non-tender and non-distended Extremity normal capillary refill General Extremity: Negative for edema Skin no rashes or lesions noted General Skin Exam: no breakdown Psych affect normal Appearance: appropriate Weight / BMI Weight Weight: 109.316 kg Body Mass Index (BMI) 36.8 ABG / Lab / Microbiology Data Result Diagrams: 07/12/21 05:11 07/12/21 05:11 Microbiology: Microbiology 07/17/21 11:30 Nasal Secretion SARS-CoV-2 Antigen (Rapid) - Final 07/10/21 09:50 Nasal Secretion SARS-CoV-2 Antigen (Rapid) - Final 07/04/21 15:10 Nasal Secretion SARS-CoV-2 Antigen (Rapid) - Final D/C Instructions Discharge Diet: No restrictions Discharge Activity: Return to Normal Activity, May Shower and Use Walker Weight Bearing Status: Weight bearing as tolerated Call your doctor if you observe: Fever of 101 or Higher, Inability to urinate, Inability to have a bowel movement, Shortness of breath, Dizziness, Fainting spells, Swelling in the ankles, Chest pain and Uncontrolled pain Additional Instructions: Discharge home with 07/23/2021, [facility] PT/OT, Beside commode, Front wheeled walker. Please Follow Up With: Terell Erazo MD When: As scheduled. Meaningful Use Info Meaningful Use Diagnoses (Choose all that apply): None applicable Discharge Plan Admission Admit Date/Time: 06/27/21 13:34 Primary Reason for Your Visit: Debility. Attending Provider: Kelton Rios Chi Primary Care Provider: Billy Church Instructions Additional Instructions / Restrictions: Discharge home with 07/23/2021, [facility] Care PT/OT, Beside commode, Front wheeled walker. Discharge Orders/Prescriptions Prescriptions: New polysaccharide iron complex [Ferrex 150] 150 mg iron Capsule 150 mg PO DAILY 30 Days Qty: 30 RF: 0 Continued loratadine-pseudoephedrine [Claritin-D 24 Hour] 10-240 mg tablet extended release 24 hr 1 tab PO QAM PRN (Reason: Sinus Symptoms) RF: 0 leflunomide 20 MG tablet 20 mg PO DAILY RF: 0 Hold Instructions: Resume on 06/22/21. hydroxychloroquine 200 MG tablet 200 mg PO BID RF: 0 cholecalciferol (vitamin D3) 2,000 UNIT tablet 2,000 unit PO DAILY RF: 0 levothyroxine 150 mcg tablet 150 mcg PO DAILY RF: 0 tramadol 50 mg tablet 50 mg PO Q6H 7 Days Qty: 28 RF: 0 metoprolol tartrate 50 mg tablet 50 mg PO DAILY 30 Days Qty: 30 RF: 0 ipratropium bromide 42 mcg (0.06 %) spray,non-aerosol 2 spray NASAL TID 30 Days Qty: 15 RF: 0 Discontinued oxycodone-acetaminophen [Percocet] 5-325 mg tablet 1 tab PO Q6H PRN (Reason: pain) 3 Days Qty: 12 RF: 0 aspirin 81 mg capsule 81 mg PO DAILY RF: 0 Referrals / Follow Up: Billy Church MD [Primary Care Provider] - Terell Erazo MD [STAFF PHYSICIAN] - 08/03/21 10:45 am Lucy Arredondo MD [[facility]] - 08/01/21 2:00 pm Disposition Disposition (needs filled in before D/C Order can be placed): Home Health Service
[2021-07-17] MEDS: traMADol 50 MG Tablet PO (19:39)
[2021-07-17 19:46] VITALS: PULSE 69; RESP 16; O2SAT 93
[2021-07-18] MEDS: Ipratropium Bromide 0.06% NASAL SPRAY 2 SPRAY NASAL ×3 (05:59→21:12)
[2021-07-18] MEDS: traMADol 50 MG Tablet PO ×2 (05:59→21:09)
[2021-07-18 06:00] VITALS: BP 141/76; PULSE 75
[2021-07-18] MEDS: Levothyroxine 150 MCG Tablet PO (06:00)
[2021-07-18] MEDS: Iron Polysaccharide Complex 150 MG CAPSULE PO (06:00)
[2021-07-18] MEDS: Hydroxychloroquine 200 MG Tablet PO ×2 (06:00→16:51)
[2021-07-18] MEDS: Metoprolol Tartrate 50 MG Tablet PO (06:00)
[2021-07-18] MEDS: Leflunomide 10 MG TABLET 20 MG PO (06:00)
[2021-07-18] MEDS: Cholecalciferol (VIT D3) 25 MCG TABLET (1,000 UNITS) 50 MCG PO (06:00)
[2021-07-18 13:53] VITALS: BP 127/63; PULSE 71; RESP 16; TEMP 36.7; O2SAT 98
[2021-07-19] MEDS: Ipratropium Bromide 0.06% NASAL SPRAY 2 SPRAY NASAL ×2 (05:58→16:17)
[2021-07-19] MEDS: Iron Polysaccharide Complex 150 MG CAPSULE PO (05:58)
[2021-07-19 05:59] LABS: Absolute Lymphocyte Count 0.86 X10^3/uL (0.83-4.51); Absolute Neutrophil Count 1.4 X10^3/uL (2.0-7.7); Basophil# 0.05 X10^3/uL; Basophil% 1.8 % (0-1); Eosinophil# 0.11 X10^3/uL; Eosinophils% 3.9 % (0-5); Hematocrit 31.8 % (37-47); Hemoglobin 9.9 g/dL (12.0-15.0); Lymphocyte # 0.86 X10^3/ul (0.83-4.51); Lymphocyte % 30.5 % (19-41); Mean Corp Hgb Conc 31.1 g/dL (32-36); Mean Corpuscular Hgb 27.5 pg (27.0-32.0); Mean Corpuscular Volume 88.3 fL (81-99); Mean Platelet Vol. 10.1 fl (6.2-12.0); Monocyte# 0.42 X10^3/uL; Monocyte% 14.9 % (0-10); NRBC Flagged by Analyzer 0 % (0-5); Neutrophil # 1.36 X10^3/uL (2.7-7.7); Neutrophil % 48.2 % (47-70); Platelet Count 206 K/mm3 (150-450); RBC Distribution Width CV 14.7 % (11.6-14.6); RBC Distribution Width SD 47.3 fl (35.1-43.9); White Blood Count 2.8 K/mm3 (4.4-11.0)
[2021-07-19] MEDS: Leflunomide 10 MG TABLET 20 MG PO (05:59)
[2021-07-19 06:00] VITALS: BP 106/62; PULSE 71
[2021-07-19] MEDS: Metoprolol Tartrate 50 MG Tablet PO (06:00)
[2021-07-19] MEDS: Senna/Docusate Sodium 1 Tablet 2 TABLET PO (06:00)
[2021-07-19] MEDS: Hydroxychloroquine 200 MG Tablet PO ×2 (06:00→18:05)
[2021-07-19] MEDS: Cholecalciferol (VIT D3) 25 MCG TABLET (1,000 UNITS) 50 MCG PO (06:01)
[2021-07-19] MEDS: Levothyroxine 150 MCG Tablet PO (06:01)
[2021-07-19 06:45] LABS: Anion Gap 6 (5-15); BUN 9 mg/dL (7-18); BUN/Creat Ratio 10.6 RATIO (10-20); Calcium,Total 8.2 mg/dL (8.5-10.1); Chloride 112 mmol/L (98-107); Creatinine, Serum 0.85 mg/dL (0.55-1.02); EST Glomerular Filtration Rate 70 mL/min (>60); Est Glom Filt Rate - Afr Amer 84 mL/min (>60); Estimated Creatinine Clearance 64.69 ml/min; Glucose 94 mg/dL (74-106); Potassium 3.7 mmol/L (3.5-5.1); Sodium Level 141 mmol/L (136-145)
[2021-07-19] MEDS: traMADol 50 MG Tablet PO ×2 (12:18→20:40)
[2021-07-19 12:28] VITALS: BP 121/59; PULSE 97; RESP 18; TEMP 36.7; O2SAT 61
[2021-07-19 18:45] VITALS: PULSE 61; O2SAT 97
[2021-07-19 22:00] VITALS: PULSE 75; RESP 18; O2SAT 95
[2021-07-20] MEDS: Ipratropium Bromide 0.06% NASAL SPRAY 2 SPRAY NASAL ×2 (06:28→15:23)
[2021-07-20] MEDS: traMADol 50 MG Tablet PO ×2 (06:28→19:51)
[2021-07-20] MEDS: Hydroxychloroquine 200 MG Tablet PO ×2 (06:29→17:54)
[2021-07-20] MEDS: Leflunomide 10 MG TABLET 20 MG PO (06:29)
[2021-07-20] MEDS: Levothyroxine 150 MCG Tablet PO (06:29)
[2021-07-20] MEDS: Iron Polysaccharide Complex 150 MG CAPSULE PO (06:29)
[2021-07-20 06:30] VITALS: BP 150/85; PULSE 74
[2021-07-20] MEDS: Cholecalciferol (VIT D3) 25 MCG TABLET (1,000 UNITS) 50 MCG PO (06:30)
[2021-07-20] MEDS: Metoprolol Tartrate 50 MG Tablet PO (06:30)
[2021-07-20 10:00] VITALS: PULSE 58; RESP 18; O2SAT 99
--- NOTE | 2021-07-20 14:12 | NURSING ---
Family and patient notified of staff member testing positive.
--- NOTE | 2021-07-20 14:56 | MDS.RN ---
Pain interview for dileep 07/23/21
[2021-07-20 15:09] VITALS: BP 118/67; PULSE 64; RESP 16; TEMP 36.1; O2SAT 97
[2021-07-21] MEDS: traMADol 50 MG Tablet PO ×2 (06:35→18:32)
[2021-07-21] MEDS: Levothyroxine 150 MCG Tablet PO (06:36)
[2021-07-21] MEDS: Ipratropium Bromide 0.06% NASAL SPRAY 2 SPRAY NASAL ×3 (06:36→20:19)
[2021-07-21] MEDS: Cholecalciferol (VIT D3) 25 MCG TABLET (1,000 UNITS) 50 MCG PO (06:36)
[2021-07-21] MEDS: Hydroxychloroquine 200 MG Tablet PO ×2 (06:36→17:01)
[2021-07-21 06:37] VITALS: BP 146/78; PULSE 80
[2021-07-21] MEDS: Iron Polysaccharide Complex 150 MG CAPSULE PO (06:37)
[2021-07-21] MEDS: Leflunomide 10 MG TABLET 20 MG PO (06:37)
[2021-07-21] MEDS: Metoprolol Tartrate 50 MG Tablet PO (06:37)
[2021-07-21 15:33] VITALS: BP 117/63; PULSE 58; RESP 18; TEMP 36.7; O2SAT 99
--- NOTE | 2021-07-21 16:24 | CASEMGMT ---
Social Work Brief interview for mental status (BIMS) and resident mood assessment (PHQ-9) assessment completed on this day. Mitchel POTTS, RAYS
[2021-07-21 22:00] VITALS: PULSE 65; RESP 16; O2SAT 98
[2021-07-22] MEDS: Ipratropium Bromide 0.06% NASAL SPRAY 2 SPRAY NASAL ×2 (06:02→13:54)
[2021-07-22] MEDS: Iron Polysaccharide Complex 150 MG CAPSULE PO (06:03)
[2021-07-22] MEDS: Levothyroxine 150 MCG Tablet PO (06:03)
[2021-07-22] MEDS: Leflunomide 10 MG TABLET 20 MG PO (06:03)
[2021-07-22] MEDS: Hydroxychloroquine 200 MG Tablet PO ×2 (06:03→17:08)
[2021-07-22 06:04] VITALS: BP 144/77; PULSE 73
[2021-07-22] MEDS: Metoprolol Tartrate 50 MG Tablet PO (06:04)
[2021-07-22] MEDS: Cholecalciferol (VIT D3) 25 MCG TABLET (1,000 UNITS) 50 MCG PO (06:04)
[2021-07-22 06:49] LABS: Absolute Lymphocyte Count 0.94 X10^3/uL (0.83-4.51); Absolute Neutrophil Count 2.1 X10^3/uL (2.0-7.7); Basophil# 0.05 X10^3/uL; Basophil% 1.4 % (0-1); Eosinophil# 0.09 X10^3/uL; Eosinophils% 2.5 % (0-5); Hematocrit 36.3 % (37-47); Hemoglobin 11.3 g/dL (12.0-15.0); Lymphocyte # 0.94 X10^3/ul (0.83-4.51); Lymphocyte % 25.7 % (19-41); Mean Corp Hgb Conc 31.1 g/dL (32-36); Mean Corpuscular Hgb 27.7 pg (27.0-32.0); Mean Platelet Vol. 10.1 fl (6.2-12.0); Monocyte# 0.47 X10^3/uL; Monocyte% 12.8 % (0-10); NRBC Flagged by Analyzer 0 % (0-5); Neutrophil # 2.09 X10^3/uL (2.7-7.7); Neutrophil % 57.1 % (47-70); Platelet Count 231 K/mm3 (150-450); RBC Distribution Width CV 14.8 % (11.6-14.6); RBC Distribution Width SD 47.8 fl (35.1-43.9); Red Blood Count 4.08 M/mm3 (4.2-5.4); White Blood Count 3.7 K/mm3 (4.4-11.0)
[2021-07-22 07:09] LABS: ALB/GLOB Ratio 0.8 RATIO (0.9-2.4); AST(SGOT) 26 U/L (15-37); Alanine Aminotransfer ALT/SGPT 19 U/L (13-56); Albumin, Serum 2.8 g/dL (3.2-5.0); Alkaline Phosphatase 86 U/L (45-117); Anion Gap 4 (5-15); BUN 9 mg/dL (7-18); BUN/Creat Ratio 8.6 RATIO (10-20); Calcium,Total 8.3 mg/dL (8.5-10.1); Chloride 109 mmol/L (98-107); Creatinine, Serum 1.05 mg/dL (0.55-1.02); EST Glomerular Filtration Rate 55 mL/min (>60); Est Glom Filt Rate - Afr Amer 66 mL/min (>60); Estimated Creatinine Clearance 52.37 ml/min; Globulin 3.5 g/dL (2.2-4.2); Glucose 128 mg/dL (74-106); Potassium 3.8 mmol/L (3.5-5.1); Protein, Total 6.3 g/dL (6.4-8.2); Sodium Level 140 mmol/L (136-145)
[2021-07-22] MEDS: traMADol 50 MG Tablet PO ×2 (09:10→20:27)
[2021-07-22 15:44] VITALS: BP 128/66; PULSE 64; RESP 18; TEMP 36.4; O2SAT 97
[2021-07-23] MEDS: traMADol 50 MG Tablet PO (06:29)
[2021-07-23] MEDS: Ipratropium Bromide 0.06% NASAL SPRAY 2 SPRAY NASAL (06:30)
[2021-07-23] MEDS: Hydroxychloroquine 200 MG Tablet PO (06:30)
[2021-07-23] MEDS: Leflunomide 10 MG TABLET 20 MG PO (06:30)
[2021-07-23] MEDS: Levothyroxine 150 MCG Tablet PO (06:30)
[2021-07-23 06:31] VITALS: BP 128/72; PULSE 78
[2021-07-23] MEDS: Iron Polysaccharide Complex 150 MG CAPSULE PO (06:31)
[2021-07-23] MEDS: Metoprolol Tartrate 50 MG Tablet PO (06:31)
[2021-07-23] MEDS: Cholecalciferol (VIT D3) 25 MCG TABLET (1,000 UNITS) 50 MCG PO (06:32)
[2021-07-23 08:35] VITALS: BP 115/66; PULSE 64; RESP 18; TEMP 36.2; O2SAT 97
== END 2021-07-23 10:30 | disposition home health service (06) | DRG 950 ==
PROVIDERS: Admitting Provider Family Medicine Geriatric Medicine; PCP Family Medicine; Visit Provider Family Medicine Geriatric Medicine
DX: T84.020D Dislocation of internal right hip prosthesis, subsequent encounter (principal); E03.9 Hypothyroidism, unspecified; M06.9 Rheumatoid arthritis, unspecified; E55.9 Vitamin D deficiency, unspecified; E89.0 Postprocedural hypothyroidism; I10 Essential (primary) hypertension; E66.9 Obesity, unspecified; Y79.2 Prosthetic and other implants, materials and accessory orthopedic devices associated with adverse incidents; Z79.899 Other long term (current) drug therapy; Z79.82 Long term (current) use of aspirin; Z79.890 Hormone replacement therapy; Z68.36 Body mass index [BMI] 36.0-36.9, adult; F32.A Depression, unspecified; Z23 Encounter for immunization
CPT/HCPCS: 0064A; 36415; 80048; 80053; 85014; 85018; 85025; 87426; 91301; 92507; 92523; 97110; 97116; 97162; 97166; 97530; 97535; 97802

== ENCOUNTER 2021-08-17 07:43 | Emergency (ER) | payer MEDICARE, BC, SELFPAY ==
[2021-08-17] VITALS (15 sets, daily range): BP systolic 119–161; BP diastolic 74–104; PULSE 67–85; RESP 15–18; TEMP 36.4–37; O2SAT 94–100; BMI 33.8
--- NOTE | 2021-08-17 08:00 | EDS_ITS ---
HPI History of Present Illness HPI Narrative: Patient presents with with right hip pain that began this morning. Patient states she felt her hip pop out of place while she was standing. Patient states her pain is localized to her right hip. Patient states it is better when she remains still. Patient states it is worse with any movement of her right hip. Patient denies any radiation of the pain. Patient denies any paresthesias or weakness. Patient states she has dislocated her hip in the past. Patient states her most recent one was approximately 2 months ago. Patient denies any other injuries. Chief Complaint: Lower Extremity Injury Informant: patient Onset/Context/Timing Onset: Today Context: Sudden Onset Timing: Continuous Quality of Pain: Sharp and Stabbing Location: Right hip Worsened by: Movement Relieved by: Rest Associated Symptoms Associated Symptoms: Negative for Parasthesia, Weakness or Loss of Funtion PFSH [facility] Medical History Allergic rhinitis Back pain due to injury Breast lump Chronic mental illness Goiter History of blood transfusion History of uterine fibroid HTN (hypertension) Hypertension Hypothyroidism Kidney disease Kidney stones Neuropathy Obesity (BMI 30-39.9) Osteoarthritis Post-menopausal Pronation deformity of left foot Rheumatoid arthritis Rheumatoid arthritis Seasonal allergies Thyroid disease Type II diabetes mellitus Home Medications hydroxychloroquine 200 mg tablet 200 mg PO BID Arthritis 02/19/13 [History Last Taken 06/06/21] leflunomide 20 mg tablet 20 mg PO DAILY R.A. 02/19/13 [History Last Taken 06/06/21] cholecalciferol (vitamin D3) 50 mcg (2,000 unit) tablet 2,000 unit PO DAILY SUPPLEMENT 01/22/17 [History Last Taken 06/06/21] loratadine-pseudoephedrine ER 10 mg-240 mg tablet,extended [id number] (Claritin-D 24 Hour) 1 tab PO QAM PRN Sinus Symptoms 01/22/17 [History Last Taken 06/05/21] levothyroxine 150 mcg tablet 150 mcg PO DAILY THYROID 06/06/21 [History Last Taken 06/06/21] ipratropium bromide 42 mcg (0.06 %) nasal spray 2 spray NASAL TID Check with primary doctor 30 days #15 mL 07/17/21 [Rx Last Taken Unknown] polysaccharide iron complex 150 mg iron capsule (Ferrex) 150 mg PO DAILY 30 days #30 caps 07/17/21 [Rx Last Taken Unknown] tramadol 50 mg tablet 50 mg PO Q6H PAIN 7 days #28 tabs 07/17/21 [Rx Last Taken 08/17/21 04:30] metoprolol tartrate 50 mg tablet 25 mg PO DAILY BP 08/17/21 [History Last Taken Unknown] Allergy/AdvReac Type Severity Reaction Status Date / Time acetaminophen [From Vicodin] AdvReac Intermediate Vomiting Verified 08/17/21 07:48 amoxicillin trihydrate AdvReac Vomiting Verified 08/17/21 07:48 [From Augmentin] hydrocodone AdvReac Vomiting Verified 08/17/21 07:48 ANESTHESIA AdvReac Unknown Uncoded 08/17/21 07:48 Family History Mother Arthritis Cancer Sister Arthritis Diabetes Father Bleeding disorder Heart disease Hypertension Son Bleeding disorder Surgical History H/O lumpectomy H/O spinal fusion H/O thyroidectomy History of bilateral knee replacement History of spinal fusion History of tonsillectomy and adenoidectomy Social History household members: spouse Smoking Status: Never smoker alcohol intake: current alcohol intake frequency: a few times a month substance use type: does not use ROS ROS ED Constitutional Constitutional ED: Denies chills or fever(s) Eyes Eyes: Denies blurry vision or change in vision ENT ENT ED: Denies rhinorrhea or sore throat Cardiovascular Cardiovascular: Denies chest pain or palpitations Respiratory/Chest Respiratory/Chest: Denies cough or dyspnea Gastrointestinal Gastrointestinal: Denies nausea or vomiting Genitourinary Genitourinary ED: Denies dysuria or hematuria Musculoskeletal Musculoskeletal: Denies back pain or neck pain Integumentary Denies abscess or rash Neurologic Neurologic: Denies headache(s) or weakness Allergic/Immunologic Allergic/Immunologic ED: Denies mouth swelling or urticaria EXAM Physical Exam Const Vital Signs: 08/17/21 07:44 08/17/21 10:11 08/17/21 11:01 Temperature 98.6 F 97.6 F L Temperature Source Oral Pulse Rate 79 76 75 Pulse Rate [1 (Initial Baseline)] Pulse Rate [3] Pulse Rate [4] Pulse Rate [5] Respiratory Rate 16 16 16 Respiratory Rate [1 (Initial Baseline)] Respiratory Rate [3] Respiratory Rate [4] Respiratory Rate [5] Blood Pressure 155/96 H 157/80 H Blood Pressure [1 (Initial Baseline)] Blood Pressure [3] Blood Pressure [4] Blood Pressure [5] Blood Pressure Mean 115 Pulse Ox 98 98 100 Oxygen Delivery Method Room Air Room Air Room Air Oxygen Delivery Method [1 (Initial Baseline)] Oxygen Delivery Method [3] Oxygen Delivery Method [4] Oxygen Delivery Method [5] Oxygen Flow Rate (L/min) Oxygen Flow Rate (L/min) [1 (Initial Baseline)] Fraction of Inspired Oxygen (FIO2) [3] 08/17/21 11:12 08/17/21 11:35 08/17/21 12:16 Temperature Temperature Source Pulse Rate 84 Pulse Rate [1 (Initial Baseline)] 75 Pulse Rate [3] 76 Pulse Rate [4] 71 Pulse Rate [5] 67 Respiratory Rate 16 Respiratory Rate [1 (Initial Baseline)] 16 Respiratory Rate [3] 18 Respiratory Rate [4] 18 Respiratory Rate [5] 15 Blood Pressure 149/78 H Blood Pressure [1 (Initial Baseline)] 157/80 H Blood Pressure [3] 150/99 H Blood Pressure [4] 121/77 H Blood Pressure [5] 137/79 H Blood Pressure Mean Pulse Ox 99 Oxygen Delivery Method Room Air Oxygen Delivery Method [1 (Initial Baseline)] Room Air Oxygen Delivery Method [3] Nasal Cannula Oxygen Delivery Method [4] Room Air Oxygen Delivery Method [5] Room Air Oxygen Flow Rate (L/min) Oxygen Flow Rate (L/min) [1 (Initial Baseline)] Fraction of Inspired Oxygen (FIO2) [3] 2 08/17/21 14:26 08/17/21 15:06 08/17/21 15:07 Temperature 98.1 F Temperature Source Pulse Rate 75 79 Pulse Rate [1 (Initial Baseline)] 75 Pulse Rate [3] Pulse Rate [4] Pulse Rate [5] Respiratory Rate 18 18 Respiratory Rate [1 (Initial Baseline)] 17 Respiratory Rate [3] Respiratory Rate [4] Respiratory Rate [5] Blood Pressure 149/89 H 132/89 H Blood Pressure [1 (Initial Baseline)] 142/104 H Blood Pressure [3] Blood Pressure [4] Blood Pressure [5] Blood Pressure Mean 109 Pulse Ox 99 Oxygen Delivery Method Room Air Nasal Cannula Oxygen Delivery Method [1 (Initial Baseline)] Nasal Cannula Oxygen Delivery Method [3] Oxygen Delivery Method [4] Oxygen Delivery Method [5] Oxygen Flow Rate (L/min) 2 Oxygen Flow Rate (L/min) [1 (Initial Baseline)] 2 Fraction of Inspired Oxygen (FIO2) [3] 08/17/21 15:11 08/17/21 15:16 08/17/21 15:21 Temperature Temperature Source Pulse Rate Pulse Rate [1 (Initial Baseline)] Pulse Rate [3] Pulse Rate [4] Pulse Rate [5] Respiratory Rate Respiratory Rate [1 (Initial Baseline)] Respiratory Rate [3] Respiratory Rate [4] Respiratory Rate [5] Blood Pressure Blood Pressure [1 (Initial Baseline)] Blood Pressure [3] Blood Pressure [4] Blood Pressure [5] Blood Pressure Mean Pulse Ox Oxygen Delivery Method Nasal Cannula Room Air Room Air Oxygen Delivery Method [1 (Initial Baseline)] Oxygen Delivery Method [3] Oxygen Delivery Method [4] Oxygen Delivery Method [5] Oxygen Flow Rate (L/min) 2 Oxygen Flow Rate (L/min) [1 (Initial Baseline)] Fraction of Inspired Oxygen (FIO2) [3] 08/17/21 16:49 Temperature Temperature Source Pulse Rate 74 Pulse Rate [1 (Initial Baseline)] Pulse Rate [3] Pulse Rate [4] Pulse Rate [5] Respiratory Rate 18 Respiratory Rate [1 (Initial Baseline)] Respiratory Rate [3] Respiratory Rate [4] Respiratory Rate [5] Blood Pressure 150/82 H Blood Pressure [1 (Initial Baseline)] Blood Pressure [3] Blood Pressure [4] Blood Pressure [5] Blood Pressure Mean 104 Pulse Ox 98 Oxygen Delivery Method Room Air Oxygen Delivery Method [1 (Initial Baseline)] Oxygen Delivery Method [3] Oxygen Delivery Method [4] Oxygen Delivery Method [5] Oxygen Flow Rate (L/min) Oxygen Flow Rate (L/min) [1 (Initial Baseline)] Fraction of Inspired Oxygen (FIO2) [3] Positive well nourished and well developed General Appearance ED: well developed and NAD HEENT Reports moist mucous membranes Resp normal respiratory effort and clear to auscultation bilaterally Cardio regular rate and regular rhythm GI non-tender and non-distended Palpation: soft Extremity Extremity Narrative: The right lower extremity is shortened and internally rotated. Range of motion was limited in all motions of the right hip secondary to pain. Pedal pulses are equal bilaterally. Sensation was intact to light touch in all digits. Capillary refill was less than 2 seconds in all digits. Neuro oriented x3, CN's II-XII intact bilaterally, moves all extremities and no sensory deficits noted Sensorium / Orientation: alert Motor Exam: strength 5/5 throughout Psych mental status grossly normal MDM MDM MDM Narrative Medical decision making narrative: Patient was given injection of morphine here. X-rays of the right hip were obtained. There are 4 views. On my interpretation, there is no acute fracture. There is a posterior and superior dislocation of the right hip prosthesis. Radiologist also interpreted the x-rays and agrees. Patient was advised of the need for conscious sedation. Risks and benefits were discussed with the patient. Patient was given the opportunity ask questions. She had no further questions. Continuous cardiac and pulse oximeter monitors were placed. Patient states she tolerated propofol well in the past. Patient was given a dose of 80 mg of propofol. The hip was reduced while the patient was sedated. Patient tolerated the procedure well. There were no hypoxic episodes. Patient awoke and her pain has resolved. Total time of procedure and sedation was 10 minutes. Repeat x-rays were obtained. There are 2 views. On my interpretation, there is no acute fracture. The dislocation has been reduced. Radiologist also interpreted the x-rays and agrees. Patient was placed in a knee immobilizer. Case was discussed with Dr. Bradley Reyes who is covering for Dr. Erazo. Patient will follow-up with Dr. Erazo next week. Patient was instructed to maintain her knee immobilizer. Patient and understood and were agreeable with the plan. All questions were answered. This the patient was being discharged and trying to get out of the wheelchair to get into her vehicle, she felt her right hip dislocate again. Patient was brought back to the emergency department. Repeat x-rays were obtained. There are 3 views. On my interpretation, there is superior and posterior dislocation of the right hip prosthesis again. Radiologist also interpreted the x-rays and agrees. Patient was consented again for procedural sedation and reduction of the hip. Continuous cardiac and pulse oximeter monitors were placed. Patient was given a total of 80 mg of propofol. Under sedation, the right hip was reduced. There were no hypoxic episodes. Patient tolerated the procedure well. Total time of sedation was 5 minutes. Repeat x-rays were obtained. There are 2 views. On my interpretation, there is good reduction of the dislocation. The knee immobilizer was reapplied. Case was discussed with vp digital marketing social media and crm. She will check to see if the patient can go to TCU or a rehab facility from here. Patient is agreeable with this plan. Case was discussed with Dr. Bradley Reyes again. He will let Dr. Erazo know the plan. Patient will follow-up with Dr. Ayla meadows as an outpatient. Radiography Diagnostic Testing: Clinical Impression(s) from Imaging Studies Hip/Pelvis X-Ray 08/17/21 08:05 IMPRESSION: Superior posterior dislocation of the prosthetic right hip joint. Electronically Signed: Brandon Sosa MD at 9:11 EDT , Hip X-Ray 08/17/21 11:17 IMPRESSION: Satisfactory reduction of the prosthetic right hip joint. Electronically Signed: Brandon Sosa MD at 11:52 EDT , Hip/Pelvis X-Ray 08/17/21 13:35 IMPRESSION: Recurring superior-posterior dislocation of the prosthetic right hip joint. Questionable bladder calculi. Electronically Signed: Brandon Sosa MD at 13:57 EDT , Hip X-Ray 08/17/21 15:20 IMPRESSION: Successful reduction of the right hip. Electronically Signed: Paz Welch MD at 16:54 EDT , Procedures Procedural Sedation 1 (Initial Baseline): Consent Signed: Yes Any Problems With Anesthesia: Yes You/Your family experience fever (hyperthermia) w/anesthesia: No Sedation medication: Propofol Dose: 80 Route: IV Mallampati Score: Class II ASA Classification: II Discharge Plan Triage Chief Complaint: Lower Extremity Injury ED Provider: Mauro Olea Dx/Rx/DC Orders Clinical Impression: Dislocation of right hip, Fall at home Instructions: ED Hip Replace Dislocation Reduc Prescriptions: No Action loratadine-pseudoephedrine [Claritin-D 24 Hour] 10-240 mg tablet extended release 24 hr 1 tab PO QAM PRN (Reason: Sinus Symptoms) leflunomide 20 MG tablet 20 mg PO DAILY Hold Instructions: Resume on 06/22/21. Label Comments: RHEUMATOID ARTHRITIS hydroxychloroquine 200 MG tablet 200 mg PO BID Label Comments: RHEUMATOID ARTHRITIS cholecalciferol (vitamin D3) 2,000 UNIT tablet 2,000 unit PO DAILY Label Comments: SUPPLEMENT levothyroxine 150 mcg tablet 150 mcg PO DAILY polysaccharide iron complex [Ferrex 150] 150 mg iron Capsule 150 mg PO DAILY 30 Days Qty: 30 0RF tramadol 50 mg tablet 50 mg PO Q6H 7 Days Qty: 28 0RF Label Comments: 1-2 tabs ipratropium bromide 42 mcg (0.06 %) spray,non-aerosol 2 spray NASAL TID 30 Days Qty: 15 0RF metoprolol tartrate 50 mg tablet 25 mg PO DAILY Primary Care Provider: Billy Church Referrals: Billy Church MD [Primary Care Provider] - Terell Erazo MD [STAFF PHYSICIAN] - 5-7 Days Disposition Disposition: Home, Self Care
--- NOTE | 2021-08-17 08:05 | RAD_ITS ---
STUDY: X-RAY - PELVIS AND RIGHT HIP REASON FOR EXAM: Female, 71 years old. Injury/Pain TECHNIQUE: 3 views of the pelvis and hip. COMPARISON: Comparison is made with prior study dated 06/08/2021. FINDINGS: There is a non-specific bowel gas pattern. Normal visualized soft tissue structures. The patient is status post laminectomy and fusion at the L4-L5 level. There is narrowing with cortical sclerosis and osteophyte formation of the sacroiliac joint consistent with degenerative osteoarthritic changes. Normal bilateral superior and inferior pubic rami. There is narrowing with sclerosis of the pubic symphysis. Normal bilateral ischial tuberosities. There is evidence of a superior posterior dislocation of the prosthetic right hip joint. RAD/HIP, UNI W/ Pelvis 2-3 Views IMPRESSION: Superior posterior dislocation of the prosthetic right hip joint. Electronically Signed: Brandon Sosa MD at 9:11 EDT ,
[2021-08-17] MEDS: Morphine 4 MG/ML Syringe IV ×2 (08:24→14:51)
--- NOTE | 2021-08-17 11:17 | RAD_ITS ---
STUDY: X-RAY - PELVIS AND RIGHT HIP REASON FOR EXAM: Female, 71 years old. Hip dislocation, postreduction TECHNIQUE: 2 views of the pelvis and hip. COMPARISON: Comparison is made with prior study done earlier today. FINDINGS: Satisfactory reduction of the prostatic right hip joint. RAD/Hip Min 2 Views (Portable) IMPRESSION: Satisfactory reduction of the prosthetic right hip joint. Electronically Signed: Brandon Sosa MD at 11:52 EDT ,
[2021-08-17] MEDS: Propofol 200 MG/20 ML Vial IV BOLUS ×2 (11:41→15:13)
--- NOTE | 2021-08-17 13:35 | RAD_ITS ---
STUDY: X-RAY - PELVIS AND RIGHT HIP REASON FOR EXAM: Female, 71 years old. Hip dislocation TECHNIQUE: 3 views of the pelvis and hip. COMPARISON: Comparison is made with prior study done earlier today. FINDINGS: Recurrent superior-posterior dislocation of the prosthetic right hip joint. 2.1 cm x 1.6 cm rounded calcification in the right and left hemipelvis. These may represent bladder calculi. RAD/HIP, UNI W/ Pelvis 2-3 Views IMPRESSION: Recurring superior-posterior dislocation of the prosthetic right hip joint. Questionable bladder calculi. Electronically Signed: Brandon Sosa MD at 13:57 EDT ,
--- NOTE | 2021-08-17 13:35 | ED.RN ---
While attempting to get back into car pt. states her hip popped back out. Pt. brought back into room and Dr. Olea notified. Pt. had knee immobilizer on while attempting to get into car.
--- NOTE | 2021-08-17 15:20 | RAD_ITS ---
STUDY: X-RAY - RIGHT HIP REASON FOR EXAM: Female, 71 years old. Dislocation TECHNIQUE: 2 views of the right hip. COMPARISON: 08/17/2021 at 8:48 AM and 11:20 AM FINDINGS: There is a non-specific bowel gas pattern. Normal visualized soft tissue structures. There is a total right hip arthroplasty in place. The patient has undergone a successful reduction since the prior examination. The alignment appears grossly anatomic. No acute osseous injury is visualized. RAD/Hip Min 2 Views (Portable) IMPRESSION: Successful reduction of the right hip. Electronically Signed: Paz Welch MD at 16:54 EDT ,
--- NOTE | 2021-08-17 18:41 | NURSING ---
CALLED PHYSICIANS AT [id number] GAVE AN ETA OF 3 HRS. WILL TRY TO OUTSOURCE.
--- NOTE | 2021-08-17 21:06 | CM.ED ---
Social Work Note Reason for Referral: SNF placement SW updated that pt has been to TCU before, agreeable to returning. ISAÍAS placed a call to Aleena with TCU and no beds are available. ISAÍAS in to speak with pt and pt's Sriram. SW spoke with pt and Sriram about SNF. SW updated pt and Sriram that TCU has no beds available. Patient was provided a list of SNF providers including quality and resource use data and consistent with the patient?s preferred geographic region, medical needs, and insurance network. Pt states that she just needs help to get in to her home. Pt states that it took three people to get her from wheelchair to bed in the ED. Pt sttes that she has a ramp at home and was walking using her walker. SW informed pt that ambulance for cot transport can be arranged for pt to get home, but informed pt that she may get a bill. SW asked pt how she is going to get to the bathroom at home though if it took three people to get pt from wheelchair to bed. Pt states she will use her walker. SW informed pt that she is requiring three person assist, she will likely not be able to manage using a walker to get to the bathroom. Pt and Sriram agreeable to SNF and states first choice is [facility] and second choice is [facility]. SW explained Medicare coverage at SNF. SW placed a call to Melanie at [facility], no beds available. ISAÍAS placed a call to Jerrica at [facility], they have beds available and willing to review referral. SW faxed referral to [facility]. SW received call from Jerrica at [facility] stating they can accept pt tonight and will need a COVID test. ISAÍAS in to speak with Sriram and pt. ISAÍAS updated Sriram and pt that [facility] does not have any beds available but [facility] does and carlos to accept pt tonight. Sriram and pt agreeable to [facility]. SW asked pt about any mental health. Pt states she has not been diagnosed with any but states the last few months have been rough. Pt states that she thought she was getting better and using a walker and thought she was going to be able to drive soon and then this happened. SW offered support to pt. Pt denied any current thoughts to harm self or others. Pt states she thought about just not waking up but states she wouldn't do anything to cause that. SW encouraged pt to reach out to SW if she feels like she needs to talk. Pt states understanding. ISAÍAS updated RN, sql bi developer and MD Olea. Pt to discharge to [facility]. PAS/RR completed. ISAÍAS faxed discharge packet, COVID test, PAS/RR and PAS/RR results to [facility]. Plan: [facility] under PAS/RR Tiana Duval BICYCLE II ASSEMBLER, ENERGY PROJECT MANAGER
[2021-08-17] MEDS: traMADol 50 MG Tablet PO (22:50)
--- NOTE | 2021-08-17 23:53 | ED.RN ---
Report called to [facility]
[2021-08-18 01:00] VITALS: BP 132/85; PULSE 60; RESP 16; TEMP 36.7; O2SAT 98
--- NOTE | 2021-08-18 01:02 | ED.RN ---
ASSUMED CARE OF THIS PT AT [id number]
== END 2021-08-18 01:17 | disposition skilled nursing facility (03) ==
PROVIDERS: Emergency Provider Emergency Medicine; PCP Family Medicine; Visit Provider Emergency Medicine
DX: S73.004A Unspecified dislocation of right hip, initial encounter (principal); I10 Essential (primary) hypertension; E03.9 Hypothyroidism, unspecified; Z79.899 Other long term (current) drug therapy; W19.XXXA Unspecified fall, initial encounter
CPT/HCPCS: 73502; 87811; 96374; 96375; 96376; 99152; 99153; 99285; J7030; J7040; P9612; A4216

== ENCOUNTER 2021-08-22 13:02 | Emergency (ER) | payer MEDICARE, BC, SELFPAY ==
[2021-08-22 13:03] VITALS: BP 131/75; PULSE 92; RESP 18; TEMP 36.9; O2SAT 97; BMI 32.0
--- NOTE | 2021-08-22 13:18 | ED.RN ---
PT DENIES BEING SUICIDAL TO THIS RN, HOWEVER AVENUE STAFF TOLD CHANCE HAIRSTON, THAT PT TOLD FAMILY TO BRING A GUN SO SHE CAN JUST END IT. PT PLACED IN SUICIDAL PRECAUTIONS WITH SITTER AT BEDSIDE
--- NOTE | 2021-08-22 13:27 | EDS_ITS ---
HPI HPI - Psych History of Present Illness Chief Complaint: Suicidal Detail of Chief Complaint: Depression Informant: patient Narrative Narrative: Patient presents to the emergency department with complaint of feeling depressed. Patient states she has been feeling this way since May. She is currently at a senior care facility after having right hip replacement with multiple dislocations x6. Patient will be scheduled for a revision of her hip with Dr. Erazo. Patient spoke with her son last night and apparently was quite depressed that he called the facility that she is had and they had a discussion with her. They referred her to the emergency department for further evaluation of her depression. Patient denies feeling suicidal or homicidal. She denies auditory or visual hallucinations. Patient states she does feel like she is depressed and she is not eating and has been losing weight. She is quite weepy she states. Prior similar symptoms: No PFSH PFSH Medical History Allergic rhinitis Back pain due to injury Breast lump Chronic mental illness Goiter History of blood transfusion History of uterine fibroid HTN (hypertension) Hypertension Hypothyroidism Kidney disease Kidney stones Neuropathy Obesity (BMI 30-39.9) Osteoarthritis Post-menopausal Pronation deformity of left foot Rheumatoid arthritis Rheumatoid arthritis Seasonal allergies Thyroid disease Type II diabetes mellitus Home Medications hydroxychloroquine 200 mg tablet 200 mg PO BID Arthritis 02/19/13 [History Last Taken 06/06/21] leflunomide 20 mg tablet 20 mg PO DAILY R.A. 02/19/13 [History Last Taken 06/06/21] cholecalciferol (vitamin D3) 50 mcg (2,000 unit) tablet 2,000 unit PO DAILY SUPPLEMENT 01/22/17 [History Last Taken 06/06/21] loratadine-pseudoephedrine ER 10 mg-240 mg tablet,extended [id number] ( Claritin-D 24 Hour) 1 tab PO QAM PRN Sinus Symptoms 01/22/17 [History Last Taken 06/05/21] levothyroxine 150 mcg tablet 150 mcg PO DAILY THYROID 06/06/21 [History Last Taken 06/06/21] ipratropium bromide 42 mcg (0.06 %) nasal spray 2 spray NASAL TID Check with primary doctor 30 days #15 mL 07/17/21 [Rx Last Taken Unknown] polysaccharide iron complex 150 mg iron capsule (Ferrex) 150 mg PO DAILY 30 days #30 caps 07/17/21 [Rx Last Taken Unknown] tramadol 50 mg tablet 50 mg PO Q6H PAIN 7 days #28 tabs 07/17/21 [Rx Last Taken 08/17/21 04:30] metoprolol tartrate 50 mg tablet 25 mg PO DAILY BP 08/17/21 [History Last Taken Unknown] Allergy/AdvReac Type Severity Reaction Status Date / Time acetaminophen [From Vicodin] AdvReac Intermediate Vomiting Verified 08/22/21 13:10 amoxicillin trihydrate AdvReac Vomiting Verified 08/22/21 13:10 [From Augmentin] hydrocodone AdvReac Vomiting Verified 08/22/21 13:10 ANESTHESIA AdvReac Unknown Uncoded 08/22/21 13:10 Family History Mother Arthritis Cancer Sister Arthritis Diabetes Father Bleeding disorder Heart disease Hypertension Son Bleeding disorder Surgical History H/O lumpectomy H/O spinal fusion H/O thyroidectomy History of bilateral knee replacement History of spinal fusion History of tonsillectomy and adenoidectomy Social History household members: spouse Smoking Status: Never smoker alcohol intake: current alcohol intake frequency: a few times a month substance use type: does not use ROS ROS ED Review of Systems ROS Unobtainable: other Constitutional Constitutional ED: Reports lethargy; Denies chills, fever(s), sweats or weight loss Eyes Eyes: Denies blurry vision, change in vision or diplopia ENT ENT ED: Denies rhinorrhea or sore throat Cardiovascular Cardiovascular: Reports chest pain and racing heartbeat; Denies orthopnea Respiratory/Chest Respiratory/Chest: Reports dyspnea and dyspnea on exertion; Denies cough, orth opnea or sputum Gastrointestinal Gastrointestinal: Denies abdominal pain, diarrhea, nausea or vomiting Genitourinary Genitourinary ED: Denies dysuria, hematuria or urinary frequency Musculoskeletal Musculoskeletal: Denies arthralgias, back pain, myalgias or neck pain Integumentary Denies abscess, Abrasions or rash Neurologic Neurologic: Denies headache(s) or weakness Psychiatric Psychiatric: Reports depression; Denies anxiety or suicidal thoughts Endocrine Endocrinology: Denies polydipsia, polyphagia or polyuria Hematologic/Lymphatic Hematologic/Lymphatic: Denies easy bleeding, easy bruising or lymphadenopathy Allergic/Immunologic Allergic/Immunologic ED: Denies mouth swelling, tongue swelling or urticaria EXAM Physical Exam Narrative Exam Narrative: Lab work-up pending. Patient will be evaluated by social media job [employer] for possible admission to psychiatric facility for depression. Apparently patient had told her son and her at some point to bring her a gun so that she could shoot herself which she did not tell me about. Care of patient will be turned over to evening physician awaiting final disposition. Const Vital Signs: 08/22/21 13:03 08/22/21 14:09 Temperature 98.4 F Temperature Source Oral Pulse Rate 92 Respiratory Rate 18 16 Blood Pressure 131/75 H Blood Pressure Mean 93 Pulse Ox 97 Oxygen Delivery Method Room Air Positive well nourished and well developed General Appearance ED: well developed and NAD HEENT Reports TM's clear and moist mucous membranes normocephalic and atraumatic; Negative for trauma or tenderness Tympanic Membrane ED: Yes TM's clear Eyes PERRL and EOMs intact bilaterally General Eye ED: Negative for pale conjunctiva or scleral icterus Neck no lymphadenopathy, supple and no JVD General: Negative for tenderness Chest Wall inspection of chest normal and palpation of chest normal Chest: Negative for tenderness Resp normal respiratory effort and clear to auscultation bilaterally Effort and Inspection: Negative for respiratory distress or pain with movement Auscultation: Negative for rhonchi, wheezes or diminished lung sounds Cardio regular rate, regular rhythm, S1 normal heart sound, S2 normal heart sound and no murmurs Peripheral Pulses: pulses 2+ throughout GI normal to inspection, nondistended, normoactive bowel sounds, soft to palpation, non-tender, non-distended and no masses Back/Spine no CVA tenderness and no thoracic nor lumbar tenderness Extremity normal to inspection General Extremety ED: Negative for edema General Extremity: Negative for edema Neuro oriented x3, CN's II-XII intact bilaterally, no sensory deficits noted and gait normal Sensorium / Orientation: awake, alert, oriented to person, oriented to place and oriented to time Motor Exam: strength 5/5 throughout and strength abnormal Psych mental status grossly normal Skin no rashes or lesions noted and no wounds Discharge Plan Triage Chief Complaint: Suicidal Other Complaint: Mental Health ED Provider: Shea Frost Dx/Rx/DC Orders Prescriptions: No Action loratadine-pseudoephedrine [Claritin-D 24 Hour] 10-240 mg tablet extended release 24 hr 1 tab PO QAM PRN (Reason: Sinus Symptoms) leflunomide 20 MG tablet 20 mg PO DAILY Hold Instructions: Resume on 06/22/21. Label Comments: RHEUMATOID ARTHRITIS hydroxychloroquine 200 MG tablet 200 mg PO BID Label Comments: RHEUMATOID ARTHRITIS cholecalciferol (vitamin D3) 2,000 UNIT tablet 2,000 unit PO DAILY Label Comments: SUPPLEMENT levothyroxine 150 mcg tablet 150 mcg PO DAILY polysaccharide iron complex [Ferrex 150] 150 mg iron Capsule 150 mg PO DAILY 30 Days Qty: 30 0RF tramadol 50 mg tablet 50 mg PO Q6H 7 Days Qty: 28 0RF Label Comments: 1-2 tabs ipratropium bromide 42 mcg (0.06 %) spray,non-aerosol 2 spray NASAL TID 30 Days Qty: 15 0RF metoprolol tartrate 50 mg tablet 25 mg PO DAILY Primary Care Provider: Billy Church Referrals: Billy Church MD [Primary Care Provider] -
[2021-08-22 14:09] VITALS: RESP 16
--- NOTE | 2021-08-22 14:47 | CM.ED ---
SW Note Referral Source: MD Referral Reason: Suicidal Informant: Patient and patient's , Cesar and patient's son, Dayne. Chief Complaint: Patient reports that she is at the hospital as her son, Dayne, said some things.. I don't know what he said. Patient said I was down... my has cancer and can't drive.. he is getting rides from the neighbors and my hip keeps popping out of place and I have to have it replaced. Patient said I am depressed. Marital History: Patient has been to her , Cesar, for 50 years. They met at school. She went to [facility] and Cesar went to [place] and that is where they met. Living Situation: Patient was from [place] for [facility]. However, patient has only been at the [place] since Saturday morning (08/18/21) . Support: Patient reports that her support is Cesar and her 3 friends, however her friends are all out of the area for the summer. : None Education: Patient graduated college from [employer] in [place]. Patient graded with a BSN RN. 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 Mental Health: Per patient and her no mental health history including medications, counseling or therapy. No family history of mental health diagnosis. Triggers: Patient said that her triggers are her medical treatment and him getting transportation and her not having a schedule and being reliant on others for transportation and scheduling. Patient said another stress is her hip issue as she is fearful that the future hip replacement will not take. Patient reports anxiousness related to others taking care of her in the SNF. Coping Skills: crying and reading. Abuse Issues: Denied Substance Abuse: Denied Risk to Others: Suicidal Ideation: Patient reports she does not recall what she said to her son on Saturday regarding a gun. Patient reports no history of suicidal attempts. Patient said that there are guns at the home which are her husbands. Homicidal Ideation: Patient denied Violence: None Alert and Oriented x4 Memory: Good Appearance: Clean and Appropriate Mood and Affect: Depressed mood and affect. Tearful Communication Pattern: Responds to questions Thought Process: No evidence of A/V Hallucinations General Intellectual Functioning: Above Average Judgement: Impaired Insight: Impaired SW asked to speak to patient's son, Dayne. SW called Dayne at [phone], He said that on 3 times on Saturday his mom asked him to bring a gun and the fourth time, on Saturday, she said that anyone could bring her a gun. ISAÍAS asked Dayne what patient wanted to do with the gun and he said wanted to get it over with. Dayne said that patient has been talking about seeing a friend, recently, who patient has not seen for 15 years and also talking about their family vacation to [place], which was her family (parents and sibling) vacation to [place] as a child. He voiced concerns regarding patient and her welfare. Dayne said that a MD did a CT of patient and said that patient has acute front lobe demential but then said it was a concussion from a fall. However, per Dayne, patient was to follow up with a neurologist but she had no intention of going to the appointment. ISAÍAS asked about any auditory or visual hallucinations and Dayne said she claims that if she rings a lopes three sets of heads lined up on either side of the door and are looking at her. He again voiced concern regarding his mother and her welfare. ISAÍAS spoke to MD Parrish. 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 Plan: Inpatient psych Roxanna Grant
[2021-08-22 15:19] LABS: Absolute Lymphocyte Count 0.92 X10^3/uL (0.83-4.51); Absolute Neutrophil Count 4.9 X10^3/uL (2.0-7.7); Basophil# 0.07 X10^3/uL; Hematocrit 39.8 % (37-47); Hemoglobin 12.3 g/dL (12.0-15.0); Lymphocyte # 0.92 X10^3/ul (0.83-4.51); Lymphocyte % 13.3 % (19-41); Mean Corp Hgb Conc 30.9 g/dL (32-36); Mean Corpuscular Volume 87.5 fL (81-99); Mean Platelet Vol. 11.1 fl (6.2-12.0); Monocyte# 0.96 X10^3/uL; Monocyte% 13.8 % (0-10); NRBC Flagged by Analyzer 0 % (0-5); Neutrophil # 4.94 X10^3/uL (2.7-7.7); Neutrophil % 71.2 % (47-70); Platelet Count 166 K/mm3 (150-450); RBC Distribution Width CV 14.8 % (11.6-14.6); RBC Distribution Width SD 47.7 fl (35.1-43.9); Red Blood Count 4.55 M/mm3 (4.2-5.4); White Blood Count 6.9 K/mm3 (4.4-11.0)
[2021-08-22 15:25] VITALS: RESP 18
[2021-08-22 15:34] LABS: Anion Gap 8 (5-15); BUN 12 mg/dL (7-18); BUN/Creat Ratio 10.1 RATIO (10-20); Calcium,Total 8.6 mg/dL (8.5-10.1); Chloride 106 mmol/L (98-107); Creatinine, Serum 1.19 mg/dL (0.55-1.02); EST Glomerular Filtration Rate 47 mL/min (>60); Est Glom Filt Rate - Afr Amer 57 mL/min (>60); Estimated Creatinine Clearance 46.21 ml/min; Glucose 96 mg/dL (74-106); Potassium 3.3 mmol/L (3.5-5.1); Sodium Level 137 mmol/L (136-145)
[2021-08-22 15:58] LABS: Alcohol, Blood (Medical)-Serum < 3.0 mg/dL
[2021-08-22 16:12] LABS: Amphetamine Urine VISTA NEGATIVE (<1000 ng/mL); Barbiturate Urine VISTA NEGATIVE (< 200 ng/mL); Benzodiazepine Urine VISTA NEGATIVE (< 200 ng/mL); Cocaine Urine VISTA NEGATIVE (< 300 ng/mL); Ecstacy Urine VISTA NEGATIVE (< 500 ng/mL); Methadone Urine VISTA NEGATIVE (< 300 ng/mL); PCP Urine VISTA NEGATIVE (< 25 ng/mL); THC Urine VISTA NEGATIVE (< 50 ng/mL); Vista UDS pH Range 6
--- NOTE | 2021-08-22 16:51 | CM.ED ---
Addendum entered by Roxanna Holm 08/22/21 17:35: ISAÍAS received phone yohana from Ludy at [facility]. Ludy said that the transport is scheduled for 6:30pm. Accepting is MD Terell Lazaro. RN to Rn is [phone]. No room number assigned. Katy, community resource officer and RN Cyndee updated. Patient and updated regarding discharge time. requested phone and contact number for [facility] [place] and that was provided to him. Roxanna Mihai FLORENTINO Addendum entered by Roxanna Holm 08/22/21 17:05: Ludy from [facility] advised that she would be calling patient's and son and give them updated information. ISAÍAS called patient's son and left voice mail that patient is being admitted to [facility] for psych. Original Note: ISAÍAS updated patient and her Bill that the plan is for inpatient psych. ISAÍAS called [facility] and spoke to Verónica. Oma, medical social worker,said that she would contact [facility] and make a referral. [facility] said that they would prefer patient go to [facility] for inpatient psych as they have worked with them in the past. ISAÍAS received call from Ludy at [facility]. ISAÍAS gave report to Ludy regarding patient. ISAÍAS received call from Ludy. She said that patient has been accepted. She needs pink slip faxed to them. ISAÍAS faxed pink slip and medical information including SW assessment to Ludy at [facility]. Plan: [facility] for inpatient psych Roxanna FLORENTINO
--- NOTE | 2021-08-22 17:54 | CM.ED ---
ISAÍAS received voice mail from Ludy at [facility] requesting covid vaccination dates. ISAÍAS called Ludy at [facility] with vaccination dates. Roxanna FLORENTINO
--- NOTE | 2021-08-22 17:59 | ED.RN ---
report called to [facility] with no questions voiced.
== END 2021-08-22 18:40 ==
PROVIDERS: Emergency Provider Emergency Medicine; PCP Family Medicine; Visit Provider Emergency Medicine
DX: F32.A Depression, unspecified (principal); I10 Essential (primary) hypertension; E03.9 Hypothyroidism, unspecified; Z79.899 Other long term (current) drug therapy; Z96.641 Presence of right artificial hip joint
CPT/HCPCS: 80048; 80307; 82077; 85025; 99285

== ENCOUNTER 2021-09-15 14:29 | Inpatient (IN) | payer MEDICARE, BC, SELFPAY ==
[2021-09-15] VITALS (7 sets, daily range): BP systolic 108–138; BP diastolic 68–101; PULSE 69–83; RESP 12–18; TEMP 36.5–36.6; O2SAT 95–100; BMI 35.2; BMI 30.8
[2021-09-15] MEDS: fentaNYL 100 MCG/2 ML Ampul 50 MCG IV (15:00)
[2021-09-15] MEDS: Propofol 200 MG/20 ML Vial IV BOLUS (15:01)
--- NOTE | 2021-09-15 15:02 | EDS_ITS ---
HPI History of Present Illness Chief Complaint: Lower Extremity Injury Informant: patient Onset/Context/Timing Context: Sudden Onset Timing: Continuous Quality of Pain: Aching Location: R hip Current Severity: Moderate Maximum Severity: Moderate Worsened by: movement Relieved by: leaving alone/remaining still Associated Symptoms Associated Symptoms: Positive for Loss of Funtion; Negative for Parasthesia or Weakness Narrative Narrative: Patient states he was at physical therapy today, she and the therapist were gently trying to go into a wheelchair, when she suddenly dislocated her right hip. She had a prior surgery on the hip, she has dislocated multiple times, she is scheduled to have a revision done this coming Saturday for this problem. No recent illness, last oral intake about 4 hours ago. She states it was a very small amount of pieces of bread. [facility] Medical History Allergic rhinitis Back pain due to injury Breast lump Chronic mental illness Goiter History of blood transfusion History of uterine fibroid HTN (hypertension) Hypertension Hypothyroidism Kidney disease Kidney stones Neuropathy Obesity (BMI 30-39.9) Osteoarthritis Post-menopausal Pronation deformity of left foot Rheumatoid arthritis Rheumatoid arthritis Seasonal allergies Thyroid disease Type II diabetes mellitus Home Medications hydroxychloroquine 200 mg tablet 200 mg PO BID Arthritis 02/19/13 [History Last Taken 06/06/21] leflunomide 20 mg tablet 20 mg PO DAILY R.A. 02/19/13 [History Last Taken 06/06/21] cholecalciferol (vitamin D3) 50 mcg (2,000 unit) tablet 2,000 unit PO DAILY SUPPLEMENT 01/22/17 [History Last Taken 06/06/21] loratadine-pseudoephedrine ER 10 mg-240 mg tablet,extended [id number] (Claritin-D 24 Hour) 1 tab PO QAM PRN Sinus Symptoms 01/22/17 [History Last Taken 06/05/21] levothyroxine 150 mcg tablet 150 mcg PO DAILY THYROID 06/06/21 [History Last Taken 06/06/21] ipratropium bromide 42 mcg (0.06 %) nasal spray 2 spray NASAL TID Check with primary doctor 30 days #15 mL 07/17/21 [Rx Last Taken Unknown] polysaccharide iron complex 150 mg iron capsule (Ferrex) 150 mg PO DAILY 30 days #30 caps 07/17/21 [Rx Last Taken Unknown] tramadol 50 mg tablet 50 mg PO Q6H PAIN 7 days #28 tabs 07/17/21 [Rx Last Taken 08/17/21 04:30] metoprolol tartrate 50 mg tablet 25 mg PO DAILY BP 08/17/21 [History Last Taken Unknown] Allergy/AdvReac Type Severity Reaction Status Date / Time acetaminophen [From Vicodin] AdvReac Intermediate Vomiting Verified 09/15/21 14:36 amoxicillin trihydrate AdvReac Vomiting Verified 09/15/21 14:36 [From Augmentin] hydrocodone AdvReac Vomiting Verified 09/15/21 14:36 ANESTHESIA AdvReac Unknown Uncoded 09/15/21 14:36 Family History Mother Arthritis Cancer Sister Arthritis Diabetes Father Bleeding disorder Heart disease Hypertension Son Bleeding disorder Surgical History H/O lumpectomy H/O spinal fusion H/O thyroidectomy History of bilateral knee replacement History of spinal fusion History of tonsillectomy and adenoidectomy Social History household members: spouse Smoking Status: Never smoker alcohol intake: current alcohol intake frequency: a few times a month substance use type: does not use ROS ROS ED Constitutional Constitutional ED: Denies chills or fever(s) Musculoskeletal Musculoskeletal: Reports extremity pain; Denies neck pain Integumentary Denies Abrasions, rash or wounds Neurologic Neurologic: Denies paresthesias or weakness EXAM Physical Exam Const Vital Signs: 09/15/21 14:33 09/15/21 17:04 09/15/21 17:04 Temperature 97.9 F 97.9 F Temperature Source Temporal Pulse Rate 80 79 77 Pulse Rate [1 (Initial Baseline)] Pulse Rate [2] Pulse Rate [3] Pulse Rate [4] Pulse Rate [5] Respiratory Rate 18 16 16 Respiratory Rate [1 (Initial Baseline)] Respiratory Rate [2] Respiratory Rate [3] Respiratory Rate [4] Respiratory Rate [5] Blood Pressure 133/76 H 132/77 H 132/77 H Blood Pressure [1 (Initial Baseline)] Blood Pressure [2] Blood Pressure [3] Blood Pressure [4] Blood Pressure [5] Blood Pressure Mean 95 95 Pulse Ox 98 98 100 Oxygen Delivery Method Room Air Room Air Room Air Oxygen Delivery Method [1 (Initial Baseline)] Oxygen Delivery Method [2] Oxygen Delivery Method [3] Oxygen Delivery Method [4] Oxygen Delivery Method [5] Oxygen Flow Rate (L/min) [1 (Initial Baseline)] Oxygen Flow Rate (L/min) [2] Oxygen Flow Rate (L/min) [3] Oxygen Flow Rate (L/min) [4] Oxygen Flow Rate (L/min) [5] 09/15/21 17:08 09/15/21 17:27 09/15/21 18:21 Temperature Temperature Source Pulse Rate 77 Pulse Rate [1 (Initial Baseline)] 80 Pulse Rate [2] 77 Pulse Rate [3] 78 Pulse Rate [4] 78 Pulse Rate [5] 83 Respiratory Rate Respiratory Rate [1 (Initial Baseline)] 18 Respiratory Rate [2] 14 Respiratory Rate [3] 12 Respiratory Rate [4] 16 Respiratory Rate [5] 16 Blood Pressure Blood Pressure [1 (Initial Baseline)] 138/82 H Blood Pressure [2] 138/79 H Blood Pressure [3] 121/73 H Blood Pressure [4] 121/73 H Blood Pressure [5] 108/68 Blood Pressure Mean Pulse Ox 95 Oxygen Delivery Method Room Air Room Air Oxygen Delivery Method [1 (Initial Baseline)] Nasal Cannula Oxygen Delivery Method [2] Nasal Cannula Oxygen Delivery Method [3] Nasal Cannula Oxygen Delivery Method [4] Nasal Cannula Oxygen Delivery Method [5] Nasal Cannula Oxygen Flow Rate (L/min) [1 (Initial Baseline)] 4 Oxygen Flow Rate (L/min) [2] 28 Oxygen Flow Rate (L/min) [3] 4 Oxygen Flow Rate (L/min) [4] 2 Oxygen Flow Rate (L/min) [5] 2 Positive well nourished and well developed General Appearance ED: well developed and NAD Neck full ROM and supple Back/Spine normal ROM and normal to inspection Extremity Extremity Narrative: Deformity the right lower extremity, it is shortened, extended at the knee, and in internal rotation. Very limited range of motion of hip due to pain and inability to according to the patient, she has neurovascular intact distally. Neuro oriented x3, no focal motor deficits and no sensory deficits noted Sensorium / Orientation: alert Psych mental status grossly normal and thought process normal Skin no wounds Rashes: no rashes MDM MDM MDM Narrative Medical decision making narrative: 2 view x-ray of the right hip on my interpretation shows a posterior hip hemiarthroplasty dislocation no fractures. I discussed with Dr. Erazo, he sta tae given the instability of this hip, she definitely needs the revision that is scheduled for Saturday and he would like her to be admitted to have medical clearance, therapy, and general care until he can do the surgery which probably will not be able to happen prior to Saturday. He agreed with reducing the patient to. Which we did see the procedure note. We placed her in a knee immobilizer afterwards, postreduction films 2 views of my interpretation show good reduction and no fracture. Lab Data Attestation: I reviewed the patient's lab results. Labs: Laboratory Results - last 24 hr 09/15/21 09/15/21 18:00 18:00 WBC 4.3 L RBC 4.27 Hgb 11.7 L Hct 36.3 L MCV 85.0 MCH 27.4 MCHC 32.2 RDW Std Deviation 45.2 H RDW Coeff of Rita 14.6 Plt Count 147 L MPV 11.6 Immature Gran % (Auto) 0.500 Neut % (Auto) 64.5 Lymph % (Auto) 19.8 Crenshaw % (Auto) 12.7 H Eos % (Auto) 1.6 Baso % (Auto) 0.9 Absolute Neuts (auto) 2.7 Absolute Lymphs (auto) 0.84 Nucleated RBC % 0 Sodium 141 Potassium 3.4 L Chloride 109 H Carbon Dioxide 25.0 Anion Gap 7 BUN 15 Creatinine 1.12 H Estim Creat Clear Calc 49.10 Est GFR (MDRD) Af Amer 61 Est GFR (MDRD) Non-Af 51 L BUN/Creatinine Ratio 13.4 Glucose 89 Calcium 8.7 Radiography Diagnostic Testing: Clinical Impression(s) from Imaging Studies Hip/Pelvis X-Ray 09/15/21 15:13 IMPRESSION: Right hip prosthesis dislocation. Electronically Signed: Rolando Santacruz MD at 15:42 EDT , EKG Initial EKG: Attestation: I personally reviewed and interpreted this EKG as follows: Interpretation: Sinus Rhythm (Heart rate around 90 but EKG has artifact) and No Acute Injury Pattern Procedures Procedural Sedation 1 (Initial Baseline): Consent Signed: Yes Any Problems With Anesthesia: No You/Your family experience fever (hyperthermia) w/anesthesia: No Sedation medication: Propofol (Pretreated with fentanyl 50 mcg 1-2 hours prior to the sedation) Dose: 80 Route: IV Total Moderate Sedation Units: 12 Mallampati Score: Class III ASA Classification: II Comment:: On monitor including end-tidal CO2, oxygenation via nasal cannula, and IV fluids prior to sedation. Recovered uneventfully, no complications. Other Procedures Procedure(s): Closed reduction right hip dislocation: After sitting the patient, using the Captain Emiliano technique, I felt a palpable clunk and reduced the deformity, with easy passive range of motion. Neurovascularly intact distally afterwards. This was verified after the patient recovered from anesthesia. Discharge Plan Dx/Rx/DC Orders Clinical Impression: Recurrent dislocation of right hip, History of right hip hemiarthroplasty, Instability of right hip joint Disposition Disposition: Acute Care Hospital [facility]
--- NOTE | 2021-09-15 15:13 | RAD_ITS ---
INDICATION: dislocation EXAMINATION/TECHNIQUE: X-RAY - RIGHT XR Hip Unilateral with Pelvis when performed; 2-3 Views 3 VIEWS COMPARISON: 08/17/2021. FINDINGS: The acetabular prosthesis and the right hip prosthesis are visualized dislocated superiorly over the acetabulum. No evidence of cortical irregularity or lucency to suggest a fracture, no evidence of lytic or sclerotic bone lesion is seen. No evidence of lucency surrounding the prosthesis. Degenerative bone changes seen. Internal fixation of the lower lumbar spine. No abnormal density in the overlying soft tissues. RAD/HIP, UNI W/ Pelvis 2-3 Views IMPRESSION: Right hip prosthesis dislocation. Electronically Signed: Rolando Santacruz MD at 15:42 EDT ,
--- NOTE | 2021-09-15 17:24 | EKG12_ITS ---
Test Reason : PRE-OP Blood Pressure : / mmHG Vent. Rate : 121 BPM Atrial Rate : 121 BPM P-R Int : 116 ms QRS Dur : 156 ms QT Int : 370 ms P-R-T Axes : 024 265 244 degrees QTc Int : 525 ms Somatic/ Motion Artifact Sinus rhythm Low voltage QRS Abnormal ECG Confirmed by JUSTYN VARGAS, ANGIE ([id number]), commissioning editor DEMI FREEMAN ([id number]) on 09/18/2021 1:04:57 PM Referred By: RADHA Confirmed By:ANGIE ALEJANDRA MD
--- NOTE | 2021-09-15 17:56 | NURSING ---
DR PARMAR FOR DR RUTH
--- NOTE | 2021-09-15 17:59 | RAD_ITS ---
STUDY: X-RAY - PELVIS AND RIGHT HIP REASON FOR EXAM: Female, 71 years old. postreduction TECHNIQUE: 2 views of the pelvis and hip. COMPARISON: 09/15/2021 at 1521 FINDINGS: There is a non-specific bowel gas pattern. Normal visualized soft tissue structures. Normal bilateral iliac wings, sacroiliac joints and visualized sacrum. Normal bilateral superior and inferior pubic rami. Normal pubic symphysis. Normal bilateral ischial tuberosities. Status post right hip hemiarthroplasty with interval reduction of the hip joint. Normal acetabulum. RAD/Hip Min 2 Views (Portable) IMPRESSION: Interval reduction of the right hip joint. Electronically Signed: Luis Fernando Larose MD at 18:21 EDT ,
[2021-09-15 18:17] LABS: Absolute Lymphocyte Count 0.84 X10^3/uL (0.83-4.51); Absolute Neutrophil Count 2.7 X10^3/uL (2.0-7.7); Basophil# 0.04 X10^3/uL; Basophil% 0.9 % (0-1); Eosinophil# 0.07 X10^3/uL; Eosinophils% 1.6 % (0-5); Hematocrit 36.3 % (37-47); Hemoglobin 11.7 g/dL (12.0-15.0); Lymphocyte # 0.84 X10^3/ul (0.83-4.51); Lymphocyte % 19.8 % (19-41); Mean Corp Hgb Conc 32.2 g/dL (32-36); Mean Corpuscular Hgb 27.4 pg (27.0-32.0); Mean Platelet Vol. 11.6 fl (6.2-12.0); Monocyte# 0.54 X10^3/uL; Monocyte% 12.7 % (0-10); NRBC Flagged by Analyzer 0 % (0-5); Neutrophil # 2.74 X10^3/uL (2.7-7.7); Neutrophil % 64.5 % (47-70); Platelet Count 147 K/mm3 (150-450); RBC Distribution Width CV 14.6 % (11.6-14.6); RBC Distribution Width SD 45.2 fl (35.1-43.9); Red Blood Count 4.27 M/mm3 (4.2-5.4); White Blood Count 4.3 K/mm3 (4.4-11.0)
[2021-09-15 18:21] LABS: Anion Gap 7 (5-15); BUN 15 mg/dL (7-18); BUN/Creat Ratio 13.4 RATIO (10-20); Calcium,Total 8.7 mg/dL (8.5-10.1); Chloride 109 mmol/L (98-107); Creatinine, Serum 1.12 mg/dL (0.55-1.02); EST Glomerular Filtration Rate 51 mL/min (>60); Est Glom Filt Rate - Afr Amer 61 mL/min (>60); Glucose 89 mg/dL (74-106); Potassium 3.4 mmol/L (3.5-5.1); Sodium Level 141 mmol/L (136-145)
--- NOTE | 2021-09-15 18:27 | NURSING ---
MED SURG OBS GHULAM RT HIP INSTABILITY, AND RECURRENT DISLOCATION
--- NOTE | 2021-09-15 18:41 | PCM.HP.STD ---
HPI - General General Date of Admission: 09/15/21 Date of Service: 09/15/21 Chief Complaint: right hip dislocation. HPI Narrative KULDEEP AGUIRRE, is a 71 F who presents with a right hip dislocation. Patient is at the [facility] nursing [facility] and was working with physical therapy and patient was working on getting out of her wheelchair where her right hip dislocated. This is now her seventh dislocation of her right hip. Patient had been in communication with Dr. Erazo and the plan was for her to have surgery on the for her hip. The hip was reduced in the emergency room. Currently, the patient feels well. Dr. rEazo was contacted through the emergency room and given her frequent natures and instability of the hip thought it was best for the patient to be brought into the hospital and that for her to undergo surgery on the . Patient states that at home before she was pretty active. She would have a ramp that she would go up and down without difficulty. She does not have steps. He does do chores around the house such as tending to her garden and does not develop any chest pain or shortness of breath. [facility] Medical History Allergic rhinitis Back pain due to injury Breast lump Chronic mental illness Goiter History of blood transfusion History of uterine fibroid HTN (hypertension) Hypertension Hypothyroidism Kidney disease Kidney stones Neuropathy Obesity (BMI 30-39.9) Osteoarthritis Post-menopausal Pronation deformity of left foot Rheumatoid arthritis Rheumatoid arthritis Seasonal allergies Thyroid disease Type II diabetes mellitus Home Medications hydroxychloroquine 200 mg tablet 200 mg PO BID Arthritis 02/19/13 [History Last Taken 06/06/21] leflunomide 20 mg tablet 20 mg PO DAILY R.A. 02/19/13 [History Last Taken 06/06/21] cholecalciferol (vitamin D3) 50 mcg (2,000 unit) tablet 2,000 unit PO DAILY SUPPLEMENT 01/22/17 [History Last Taken 06/06/21] loratadine-pseudoephedrine ER 10 mg-240 mg tablet,extended [id number] (Claritin-D 24 Hour) 1 tab PO QAM PRN Sinus Symptoms 01/22/17 [History Last Taken 06/05/21] levothyroxine 150 mcg tablet 150 mcg PO DAILY THYROID 06/06/21 [History Last Taken 06/06/21] ipratropium bromide 42 mcg (0.06 %) nasal spray 2 spray NASAL TID Check with primary doctor 30 days #15 mL 07/17/21 [Rx Last Taken Unknown] polysaccharide iron complex 150 mg iron capsule (Ferrex) 150 mg PO DAILY 30 days #30 caps 07/17/21 [Rx Last Taken Unknown] tramadol 50 mg tablet 50 mg PO Q6H PAIN 7 days #28 tabs 07/17/21 [Rx Last Taken 08/17/21 04:30] metoprolol tartrate 50 mg tablet 25 mg PO DAILY BP 08/17/21 [History Last Taken Unknown] Allergy/AdvReac Type Severity Reaction Status Date / Time acetaminophen [From Vicodin] AdvReac Intermediate Vomiting Verified 09/15/21 14:36 amoxicillin trihydrate AdvReac Vomiting Verified 09/15/21 14:36 [From Augmentin] hydrocodone AdvReac Vomiting Verified 09/15/21 14:36 ANESTHESIA AdvReac Unknown Uncoded 09/15/21 14:36 Family History Mother Arthritis Cancer Sister Arthritis Diabetes Father Bleeding disorder Heart disease Hypertension Son Bleeding disorder Surgical History H/O lumpectomy H/O spinal fusion H/O thyroidectomy History of bilateral knee replacement History of spinal fusion History of tonsillectomy and adenoidectomy Social History household members: spouse Smoking Status: Never smoker alcohol intake: current alcohol intake frequency: a few times a month substance use type: does not use ROS ROS Narrative Bilateral lower extremity edema. Patient has been wearing the immobilizer on her right lower extremity. All review of systems were negative except as mentioned above in the history of present illness and the other review of systems. Vital Signs Vital Signs Vital Signs: 09/15/21 14:33 09/15/21 17:04 09/15/21 17:04 Temperature 36.6 C 36.6 C Temperature Source Temporal Pulse Rate 80 79 77 Pulse Rate [1 (Initial Baseline)] Pulse Rate [2] Pulse Rate [3] Pulse Rate [4] Pulse Rate [5] Respiratory Rate 18 16 16 Respiratory Rate [1 (Initial Baseline)] Respiratory Rate [2] Respiratory Rate [3] Respiratory Rate [4] Respiratory Rate [5] Blood Pressure 133/76 H 132/77 H 132/77 H Blood Pressure [1 (Initial Baseline)] Blood Pressure [2] Blood Pressure [3] Blood Pressure [4] Blood Pressure [5] Blood Pressure Mean 95 95 Pulse Ox 98 98 100 Oxygen Delivery Method Room Air Room Air Room Air Oxygen Delivery Method [1 (Initial Baseline)] Oxygen Delivery Method [2] Oxygen Delivery Method [3] Oxygen Delivery Method [4] Oxygen Delivery Method [5] Oxygen Flow Rate (L/min) [1 (Initial Baseline)] Oxygen Flow Rate (L/min) [2] Oxygen Flow Rate (L/min) [3] Oxygen Flow Rate (L/min) [4] Oxygen Flow Rate (L/min) [5] 09/15/21 17:08 09/15/21 17:27 09/15/21 18:21 Temperature Temperature Source Pulse Rate 77 Pulse Rate [1 (Initial Baseline)] 80 Pulse Rate [2] 77 Pulse Rate [3] 78 Pulse Rate [4] 78 Pulse Rate [5] 83 Respiratory Rate Respiratory Rate [1 (Initial Baseline)] 18 Respiratory Rate [2] 14 Respiratory Rate [3] 12 Respiratory Rate [4] 16 Respiratory Rate [5] 16 Blood Pressure Blood Pressure [1 (Initial Baseline)] 138/82 H Blood Pressure [2] 138/79 H Blood Pressure [3] 121/73 H Blood Pressure [4] 121/73 H Blood Pressure [5] 108/68 Blood Pressure Mean Pulse Ox 95 Oxygen Delivery Method Room Air Room Air Oxygen Delivery Method [1 (Initial Baseline)] Nasal Cannula Oxygen Delivery Method [2] Nasal Cannula Oxygen Delivery Method [3] Nasal Cannula Oxygen Delivery Method [4] Nasal Cannula Oxygen Delivery Method [5] Nasal Cannula Oxygen Flow Rate (L/min) [1 (Initial Baseline)] 4 Oxygen Flow Rate (L/min) [2] 28 Oxygen Flow Rate (L/min) [3] 4 Oxygen Flow Rate (L/min) [4] 2 Oxygen Flow Rate (L/min) [5] 2 09/15/21 18:27 Temperature 36.6 C Temperature Source Temporal Pulse Rate 77 Pulse Rate [1 (Initial Baseline)] Pulse Rate [2] Pulse Rate [3] Pulse Rate [4] Pulse Rate [5] Respiratory Rate 16 Respiratory Rate [1 (Initial Baseline)] Respiratory Rate [2] Respiratory Rate [3] Respiratory Rate [4] Respiratory Rate [5] Blood Pressure 121/101 H Blood Pressure [1 (Initial Baseline)] Blood Pressure [2] Blood Pressure [3] Blood Pressure [4] Blood Pressure [5] Blood Pressure Mean 107 Pulse Ox 95 Oxygen Delivery Method Room Air Oxygen Delivery Method [1 (Initial Baseline)] Oxygen Delivery Method [2] Oxygen Delivery Method [3] Oxygen Delivery Method [4] Oxygen Delivery Method [5] Oxygen Flow Rate (L/min) [1 (Initial Baseline)] Oxygen Flow Rate (L/min) [2] Oxygen Flow Rate (L/min) [3] Oxygen Flow Rate (L/min) [4] Oxygen Flow Rate (L/min) [5] Weight Weight: 111.13 kg Body Mass Index (BMI) 35.2 Physical Exam Const alert and no apparent distress HEENT normocephalic and head/scalp atraumatic Resp normal respiratory effort, no retractions, no use of accessory muscles and clear to auscultation bilaterally Cardio regular rate, regular rhythm, S1 normal heart sound and S2 normal heart sound GI normal to inspection, nondistended, normoactive bowel sounds, soft to palpation, non-tender and non-distended Extremity Extremity Narrative: Immobilizer on the right lower extremity. Bilateral lower extremity edema. Psych affect normal Results Lab / Micro Data Attestation: I reviewed the patient's lab results. Result Diagrams: 09/15/21 18:00 09/15/21 18:00 Labs: Laboratory Results - last 24 hr 09/15/21 18:00: WBC 4.3 L, RBC 4.27, Hgb 11.7 L, Hct 36.3 L, MCV 85.0, MCH 27.4, MCHC 32.2, RDW Std Deviation 45.2 H, RDW Coeff of Rita 14.6, Plt Count 147 L, MPV 11.6, Immature Gran % (Auto) 0.500, Neut % (Auto) 64.5, Lymph % (Auto) 19.8, [place] % (Auto) 12.7 H, Eos % (Auto) 1.6, Baso % (Auto) 0.9, Absolute Neuts (auto) 2.7, Absolute Lymphs (auto) 0.84, Nucleated RBC % 0 09/15/21 18:00: Sodium 141, Potassium 3.4 L, Chloride 109 H, Carbon Dioxide 25.0, Anion Gap 7, BUN 15, Creatinine 1.12 H, Estim Creat Clear Calc 49.10, Est GFR (MDRD) Af Amer 61, Est GFR (MDRD) Non-Af 51 L, BUN/Creatinine Ratio 13.4, Glucose 89, Calcium 8.7 EKG Initial EKG: Attestation: I personally reviewed and interpreted this EKG as follows: Prior EKG tracings: available for review EKG Rhythm Intrepretation: Sinus Rhythm (Low voltage. Baseline artifact. No acute changes.) Radiology Impression Hip/Pelvis X-Ray 09/15/21 15:13 IMPRESSION: Right hip prosthesis dislocation. Electronically Signed: Rolando Santacruz MD at 15:42 EDT , Hip X-Ray 09/15/21 17:59 IMPRESSION: Interval reduction of the right hip joint. Electronically Signed: Luis Fernando Larose MD at 18:21 EDT , Assessment & Plan Assessment/Plan (1) Recurrent dislocation of right hip: PLAN: Recurrent right hip dislocation. Successfully reduced in the emergency room Discussed with Dr. Erazo, given the recurrent nature of the dislocation and risk of sedation with further reductions he strongly recommends patient being brought into the hospital and having therapy see her to help mitigate further dislocations until she can have surgery on the . He said he would not be able to do it any sooner and given the nature of the surgery it would not be feasible over the weekend. Patient is currently comfortable and not having any acute needs so will continue with her home medications. NQSIP was performed. Patient is higher than average risk for serious complications, any complications, pneumonia, cardiac complications, surgical site infection, UTI, VTE, renal failure, readmission, return to the OR and discharged to nursing or rehab facility. Despite that, patient is medically cleared to proceed with surgery. Patient has previously a good performance status. No additional preop testing or optimization is necessary at this time. Consult orthopedics Continue with knee immobilizer on the right side unless okay to remove by orthopedics PLAN: Plan Chronic medical conditions Vitamin D deficiency: Continue with vitamin D Rheumatoid arthritis: Continue with hydroxychloroquine and leflunomide Hypothyroidism: Continue levothyroxine Morbid obesity: Complicates care and recovery. Patient would benefit from weight loss but that can be performed as outpatient. VTE prophylaxis with enoxaparin Disposition: Patient being brought in under observation status. Patient and her were made aware of this. We will discuss with case management on the 6 to see given her prolonged hospitalization if that could be changed prior to her surgery. I did inform them that the co-pays with observation status are generally less than with admissions. I informed the patient is observation status as currently there is no medical necessity other than just observing her in the hospital. They expressed understanding. Charges/Coding Visit Charges OBSV E&M: 49323 Initial observation care L2
[2021-09-15] MEDS: Hydroxychloroquine 200 MG Tablet PO (20:59)
[2021-09-15] MEDS: traMADol 50 MG Tablet PO (23:19)
[2021-09-16 04:45] VITALS: BP 112/64; PULSE 76; RESP 18; TEMP 36.6; O2SAT 98
[2021-09-16] MEDS: Levothyroxine 150 MCG Tablet PO (05:08)
[2021-09-16] MEDS: traMADol 50 MG Tablet PO ×4 (05:09→23:09)
[2021-09-16] MEDS: 0.9% Saline Lock 10 ML Syringe IV (05:15)
--- NOTE | 2021-09-16 06:55 | PN.HOSP_ITS ---
Subjective Subjective No events overnight. Does have lower extremity edema but unchanged from baseline Objective Data Objective Data Vital Signs: Vital Signs Temp Pulse Resp BP Pulse Ox O2 Del Method O2 Flow Rate 36.5 C L 69 16 124/80 H 99 Room Air 4 09/15/21 20:25 09/15/21 20:25 09/15/21 20:25 09/15/21 20:25 09/15/21 20:25 09/15/21 21:00 09/15/21 17:08 Oxygen Flow Rate (L/min) [5] 2 Oxygen Flow Rate (L/min) [4] 2 Oxygen Flow Rate (L/min) [3] 4 Oxygen Flow Rate (L/min) [2] 28 Oxygen Flow Rate (L/min) [1 ( 4 Initial Baseline)] Oxygen Delivery Method [5] Nasal Cannula Oxygen Delivery Method [4] Nasal Cannula Oxygen Delivery Method [3] Nasal Cannula Oxygen Delivery Method [2] Nasal Cannula Oxygen Delivery Method [1 ( Nasal Cannula Initial Baseline)] Oxygen Delivery Method Room Air Weight: 97.6 kg Body Mass Index (BMI) 30.8 Lab / Micro Data Result Diagrams: 09/15/21 18:00 09/15/21 18:00 Labs: Laboratory Results - last 24 hr 09/15/21 18:00: WBC 4.3 L, RBC 4.27, Hgb 11.7 L, Hct 36.3 L, MCV 85.0, MCH 27.4, MCHC 32.2, RDW Std Deviation 45.2 H, RDW Coeff of Rita 14.6, Plt Count 147 L, MPV 11.6, Immature Gran % (Auto) 0.500, Neut % (Auto) 64.5, Lymph % (Auto) 19.8, [place] % (Auto) 12.7 H, Eos % (Auto) 1.6, Baso % (Auto) 0.9, Absolute Neuts (auto) 2.7, Absolute Lymphs (auto) 0.84, Nucleated RBC % 0 09/15/21 18:00: Sodium 141, Potassium 3.4 L, Chloride 109 H, Carbon Dioxide 25.0, Anion Gap 7, BUN 15, Creatinine 1.12 H, Estim Creat Clear Calc 49.10, Est GFR (MDRD) Af Amer 61, Est GFR (MDRD) Non-Af 51 L, BUN/Creatinine Ratio 13.4, Glucose 89, Calcium 8.7 Radiography Diagnostic Testing: Radiology Impression Hip/Pelvis X-Ray 09/15/21 15:13 IMPRESSION: Right hip prosthesis dislocation. Electronically Signed: Rolando Santacruz MD at 15:42 EDT , Hip X-Ray 09/15/21 17:59 IMPRESSION: Interval reduction of the right hip joint. Electronically Signed: Luis Fernando Larose MD at 18:21 EDT , Physical Exam Const alert and no apparent distress Extremity Extremity Narrative: Immobilizer on right lower extremity. Bilateral lower extremity edema. Psych affect normal Assessment & Plan Assessment/Plan (1) Recurrent dislocation of right hip: PLAN: Recurrent right hip dislocation. Successfully reduced in the emergency room Discussed with Dr. Erazo, given the recurrent nature of the dislocation and ri sk of sedation with further reductions he strongly recommends patient being brought into the hospital and having therapy see her to help mitigate further dislocations until she can have surgery on the . He said he would not be able to do it any sooner and given the nature of the surgery it would not be feasible over the weekend. Patient is currently comfortable and not having any acute needs so will continue with her home medications. NQSIP was performed. Patient is higher than average risk for serious complications, any complications, pneumonia, cardiac complications, surgical site infection, UTI, VTE, renal failure, readmission, return to the OR and discharged to nursing or rehab facility. Despite that, patient is medically cleared to proceed with surgery. Patient has previously a good performance status. No additional preop testing or optimization is necessary at this time. Consult orthopedics Continue with knee immobilizer on the right side unless okay to remove by orthopedics PLAN: Plan Chronic medical conditions * Vitamin D deficiency: Continue with vitamin D * Rheumatoid arthritis: Continue with hydroxychloroquine and leflunomide * Hypothyroidism: Continue levothyroxine * Morbid obesity: Complicates care and recovery. Patient would benefit from weight loss but that can be performed as outpatient. VTE prophylaxis with enoxaparin Disposition: Patient being brought in under observation status. Patient and her were made aware of this. Discussed with case management given the patient's current observation status and the fact that she will have a prolonged hospitalization until she can undergo her surgery. Case management will discussed with Dr. Atkinson if status can be changed. Charges/Coding Visit Charges OBSV E&M: 57049 Initial observation care L1
[2021-09-16 09:54] VITALS: BP 102/60; PULSE 87; RESP 18; TEMP 36.8; O2SAT 99
[2021-09-16 10:08] VITALS: PULSE 87
[2021-09-16] MEDS: Iron Polysaccharide Complex 150 MG CAPSULE PO (10:08)
[2021-09-16] MEDS: Cholecalciferol (VIT D3) 25 MCG TABLET (1,000 UNITS) 50 MCG PO (10:08)
[2021-09-16] MEDS: Enoxaparin 40 MG/0.4 ML Syringe SC (10:08)
[2021-09-16] MEDS: Metoprolol Tartrate 25 MG Tablet PO (10:08)
[2021-09-16] MEDS: Hydroxychloroquine 200 MG Tablet PO ×2 (10:09→23:09)
[2021-09-16] MEDS: Leflunomide 10 MG TABLET 20 MG PO (10:09)
--- NOTE | 2021-09-16 12:51 | PCM.CONS.GEN ---
Assessment & Plan Assessment/Plan (1) Instability of right hip joint: PLAN: Presurgical discussion has been discussed in the office of the patient. She has again dislocated. At this time the major change in treatment plan is patient's risk of further dislocations even at a [facility] for setting as she dislocated with [facility] physical therapy yesterday. Length and magnitude of the surgery is patient may need revision of the femoral stem if intraoperative findings are consistent with significant retroversion, as previously discussed at her office visit, could require surgery that is not suitable for after hours. Based on this we have planned already to move forward with surgery in an urgent manner on September 21. My plan at this time would be to continue with the knee immobilizer, continue with therapy on an inpatient basis adhering to strict dislocation precautions. Patient currently does have some swelling of the extremity distally which I believe is related to postoperative and posttraumatic changes related to her recurrent dislocations. She is on enoxaparin which would be ideal up until time of surgery as it has a short half-life and can be discontinued 24 hours before surgery. Calves are soft and supple at this time and maintaining her current DVT prophylaxis should be sufficient for any treatment. Patient understands risks of the procedure to include but not limited to blood loss, DVTs, PEs, nervous damage, infection, the risk of anesthesia and even further dislocations. Additionally we discussed the risk of leg length discrepancies and I explained to the patient that any extension of the leg can more easily be addressed than further dislocations. Her plan at this time is to proceed with a revision of the acetabular side to a dual mobility component to change anteversion and increased stability however, patient is aware that my concerns for retroversion of the femoral component that may be too great to compensate for with simple acetabular revision would require complete removal of the cement removal of the implant and likely osteotomy. Patient has sustained a fragility fracture which was her hip fracture start off with it is at risk for intraoperative fractures as well. Patient demonstrates understanding of all this and does wish to proceed. In addition patient understands the magnitude of the surgery and is agreeable to proceed in a timeframe already arranged which is in an urgent manner. (2) Recurrent dislocation of right hip: (3) Vitamin D deficiency: PLAN: Vitamin D supplementation was initiated (4) Malnourished: PLAN: Patient is unsure if she will remain on Ensure until after surgery. Nutrition markers are decreased including decreased absolute lymphocyte count as well as decreased albumin levels. Considering the instability of this hip and limitations with her mobility the urgency of this case did not allow us to adequately optimize the patient. 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 Patient was seen in the office last Saturday and reported 6 total dislocations. At that time we elected to proceed with surgical intervention. She has been under the care of my partner up until then. She has been bounced around to different institutions. She has had some suicidal ideations related to these dislocations which resulted in her being institutionalized in [place] where she had a dislocation. She wished to return to the local hospital for care under myself as I have treated her for other orthopedic issues. We discussed in the office that she has no pain when the hip is adequately reduced. She has good function and is able to walk around. In fact she walked the halls with physical therapy today. She requires close monitoring and care. Each time she attempts to go home it appears that sitting in the vehicle places her at increased risk. We elected to proceed with continued institutionalization at the [facility] facility with monitored therapy. She dislocated during physical therapy yesterday. She presented the emergency department where she was reduced. She denies any new numbness or tingling. She is now in a knee immobilizer. She has had some chronic swelling of her right foot associated with the surgery and recurrent dislocations. No redness or calf tenderness. She is sitting in bed comfortably reading at this time with minimal pain. [facility] Medical History Allergic rhinitis Back pain due to injury Breast lump Chronic mental illness Goiter History of blood transfusion History of uterine fibroid HTN (hypertension) Hypertension Hypothyroidism Kidney disease Kidney stones Neuropathy Obesity (BMI 30-39.9) Osteoarthritis Post-menopausal Pronation deformity of left foot Rheumatoid arthritis Rheumatoid arthritis Seasonal allergies Thyroid disease Type II diabetes mellitus Home Medications hydroxychloroquine 200 mg tablet 200 mg PO BID Arthritis 02/19/13 [History Last Taken 06/06/21] leflunomide 20 mg tablet 20 mg PO DAILY R.A. 02/19/13 [History Last Taken 06/06/21] cholecalciferol (vitamin D3) 50 mcg (2,000 unit) tablet 2,000 unit PO DAILY SUPPLEMENT 01/22/17 [History Last Taken 06/06/21] loratadine-pseudoephedrine ER 10 mg-240 mg tablet,extended [id number] (Claritin-D 24 Hour) 1 tab PO QAM PRN Sinus Symptoms 01/22/17 [History Last Taken 06/05/21] levothyroxine 150 mcg tablet 150 mcg PO DAILY THYROID 06/06/21 [History Last Taken 06/06/21] ipratropium bromide 42 mcg (0.06 %) nasal spray 2 spray NASAL TID Check with primary doctor 30 days #15 mL 07/17/21 [Rx Last Taken Unknown] polysaccharide iron complex 150 mg iron capsule (Ferrex) 150 mg PO DAILY 30 days #30 caps 07/17/21 [Rx Last Taken Unknown] tramadol 50 mg tablet 50 mg PO Q6H PAIN 7 days #28 tabs 07/17/21 [Rx Last Taken 08/17/21 04:30] metoprolol tartrate 50 mg tablet 25 mg PO DAILY BP 08/17/21 [History Last Taken Unknown] Allergy/AdvReac Type Severity Reaction Status Date / Time amoxicillin trihydrate AdvReac Vomiting Verified 09/15/21 14:36 [From Augmentin] hydrocodone AdvReac Vomiting Verified 09/15/21 14:36 ANESTHESIA AdvReac Unknown Uncoded 09/15/21 14:36 Family History Mother Arthritis Cancer Sister Arthritis Diabetes Father Bleeding disorder Heart disease Hypertension Son Bleeding disorder Surgical History H/O lumpectomy H/O spinal fusion H/O thyroidectomy History of bilateral knee replacement History of spinal fusion History of tonsillectomy and adenoidectomy Social History household members: spouse Smoking Status: Never smoker alcohol intake: current alcohol intake frequency: a few times a month substance use type: does not use ROS Constitutional Constitutional: Reports systems reviewed and no addt'l complaints, except as documented Eyes Eyes: Reports systems reviewed and no addt'l complaints, except as documented ENT HEENT: Reports systems reviewed and no addt'l complaints, except as documented Cardiovascular Cardiovascular: Reports systems reviewed and no addt'l complaints, except as documented Respiratory/Chest Respiratory/Chest: Reports systems reviewed and no addt'l complaints, except as documented Gastrointestinal Gastrointestinal: Reports systems reviewed and no addt'l complaints, except as documented Genitourinary Genitourinary: Reports systems reviewed and no addt'l complaints, except as documented Musculoskeletal Musculoskeletal: Reports systems reviewed and no addt'l complaints, except as documented Integumentary Integumentary: Reports systems reviewed and no addt'l complaints, except as documented Neurologic Neurologic: Reports systems reviewed and no addt'l complaints, except as documented Psychiatric Psychiatric: Reports other Details: Patient currently has no suicidal ideations however she does have a history of these as mentioned in her HPI. Hematologic/Lymphatic Hematologic/Lymphatic: Reports systems reviewed and no addt'l complaints, except as documented Allergic/Immunologic Allergic/Immunologic: Reports systems reviewed and no addt'l complaints, except as documented Physical Exam Const alert and oriented x3 General Appearance: cooperative, comfortable and well kempt HEENT normocephalic and head/scalp atraumatic Mouth: lips normal Eyes PERRL Neck No nuchal rigidity Resp normal respiratory effort Cardio Cardio Narrative: Regular pulse rate GI non-distended Extremity Extremity Narrative: Right lower extremity: Extremity is a knee immobilizer. Skin is intact. Knee immobilizer was removed. Positive dorsiflexion EHL plantar flexion. Patient has fixed planovalgus deformity of the foot with associated edema. No erythema. No calf tenderness palpation. No streaking of the calf. No palpable cords. Range of motion and strength of the hip were deferred secondary to instability. Sensations intact light touch saphenous, sural, superficial peroneal, deep peroneal tibial nerve distributions. Positive dorsiflexion EHL plantar flexion. Skin Skin Narrative: Incision is clean dry and intact Neuro oriented x3 Psych mental status grossly normal Medical Records Data Attestation: I reviewed the patient's medical records Lab / Micro Data Attestation: I reviewed the patient's lab results. Result Diagrams: 09/15/21 18:00 09/15/21 18:00 Labs: Laboratory Results - last 24 hr 09/15/21 18:00: WBC 4.3 L, RBC 4.27, Hgb 11.7 L, Hct 36.3 L, MCV 85.0, MCH 27.4, MCHC 32.2, RDW Std Deviation 45.2 H, RDW Coeff of Rita 14.6, Plt Count 147 L, MPV 11.6, Immature Gran % (Auto) 0.500, Neut % (Auto) 64.5, Lymph % (Auto) 19.8, [place] % (Auto) 12.7 H, Eos % (Auto) 1.6, Baso % (Auto) 0.9, Absolute Neuts (auto) 2.7, Absolute Lymphs (auto) 0.84, Nucleated RBC % 0 09/15/21 18:00: Sodium 141, Potassium 3.4 L, Chloride 109 H, Carbon Dioxide 25.0, Anion Gap 7, BUN 15, Creatinine 1.12 H, Estim Creat Clear Calc 49.10, Est GFR (MDRD) Af Amer 61, Est GFR (MDRD) Non-Af 51 L, BUN/Creatinine Ratio 13.4, Glucose 89, Calcium 8.7 Radiology Impression Hip/Pelvis X-Ray 09/15/21 15:13 IMPRESSION: Right hip prosthesis dislocation. Electronically Signed: Rolando Santacruz MD at 15:42 EDT , Hip X-Ray 09/15/21 17:59 IMPRESSION: Interval reduction of the right hip joint. Electronically Signed: Luis Fernando Larose MD at 18:21 EDT ,
[2021-09-16 14:40] VITALS: BP 103/59; PULSE 74; RESP 18; TEMP 36.9; O2SAT 98
[2021-09-16 20:40] VITALS: BP 118/67; PULSE 76; RESP 16; TEMP 36.6; O2SAT 94
[2021-09-17 02:40] VITALS: BP 126/91; PULSE 76; RESP 16; TEMP 36.5; O2SAT 97
[2021-09-17] MEDS: traMADol 50 MG Tablet PO ×3 (06:05→23:56)
[2021-09-17] MEDS: Levothyroxine 150 MCG Tablet PO (06:05)
--- NOTE | 2021-09-17 07:02 | PCM.PN.HOSP ---
Subjective Subjective No events. Did well with therapy. Objective Data Objective Data Vital Signs: Vital Signs Temp Pulse Resp BP Pulse Ox O2 Del Method O2 Flow Rate 36.5 C L 76 16 126/91 H 97 Room Air 4 09/17/21 02:40 09/17/21 02:40 09/17/21 02:40 09/17/21 02:40 09/17/21 02:40 09/17/21 02:40 09/15/21 17:08 Oxygen Flow Rate (L/min) [5] 2 Oxygen Flow Rate (L/min) [4] 2 Oxygen Flow Rate (L/min) [3] 4 Oxygen Flow Rate (L/min) [2] 28 Oxygen Flow Rate (L/min) [1 ( 4 Initial Baseline)] Oxygen Delivery Method [5] Nasal Cannula Oxygen Delivery Method [4] Nasal Cannula Oxygen Delivery Method [3] Nasal Cannula Oxygen Delivery Method [2] Nasal Cannula Oxygen Delivery Method [1 ( Nasal Cannula Initial Baseline)] Oxygen Delivery Method Room Air Weight: 97.6 kg Body Mass Index (BMI) 30.8 Intake & Output: Intake and Output for Last 24 Hours 09/15/21 09/16/21 09/17/21 23:59 23:59 23:59 Intake Total 600 / 600 Balance 600 / 600 Lab / Micro Data Result Diagrams: 09/15/21 18:00 09/15/21 18:00 Physical Exam Const alert and no apparent distress Constitutional Narrative: up in bed. HEENT head/scalp atraumatic Neuro Sensorium / Orientation: awake and alert Psych affect normal Assessment & Plan Assessment/Plan (1) Recurrent dislocation of right hip: PLAN: Recurrent right hip dislocation. Successfully reduced in the emergency room 09/15: Discussed with Dr. Erazo, given the recurrent nature of the dislocation and risk of sedation with further reductions he strongly recommends patient being brought into the hospital and having therapy see her to help mitigate further dislocations until she can have surgery on the . He said he would not be able to do it any sooner and given the nature of the surgery it would not be feasible over the weekend. Patient is currently comfortable and not having any acute needs so will continue with her home medications. NQSIP was performed. Patient is higher than average risk for serious complications, any complications, pneumonia, cardiac complications, surgical site infection, UTI, VTE, renal failure, readmission, return to the OR and discharged to nursing or rehab facility. Despite that, patient is medically cleared to proceed with surgery. Patient has previously a good performance status. No additional preop testing or optimization is necessary at this time. Consult orthopedics Continue with knee immobilizer on the right side Plan for surgery on 09/21. PLAN: Plan Chronic medical conditions Vitamin D deficiency: Continue with vitamin D Rheumatoid arthritis: Continue with hydroxychloroquine and leflunomide Hypothyroidism: Continue levothyroxine Morbid obesity: Complicates care and recovery. Patient would benefit from weight loss but that can be performed as outpatient. VTE prophylaxis with enoxaparin Disposition: Patient initially brought in under observation status. DW case management, this has now been changed to admission status. Charges/Coding Visit Charges Inpatient E&M: [address] [facility] Hosp L1
[2021-09-17 09:30] VITALS: BP 108/74; PULSE 82; RESP 18; TEMP 36.6; O2SAT 98
[2021-09-17] MEDS: Enoxaparin 40 MG/0.4 ML Syringe SC (09:43)
[2021-09-17] MEDS: Iron Polysaccharide Complex 150 MG CAPSULE PO (09:43)
[2021-09-17] MEDS: Hydroxychloroquine 200 MG Tablet PO ×2 (09:43→22:02)
[2021-09-17 09:44] VITALS: PULSE 82
[2021-09-17] MEDS: Metoprolol Tartrate 25 MG Tablet PO (09:44)
[2021-09-17] MEDS: Leflunomide 10 MG TABLET 20 MG PO (09:44)
--- NOTE | 2021-09-17 09:51 | PCM.PN.ORT ---
Objective Data Objective Data Vital Signs: Vital Signs Temp Pulse Resp BP Pulse Ox O2 Del Method O2 Flow Rate 97.8 F 82 18 108/74 98 Room Air 4 09/17/21 09:30 09/17/21 09:44 09/17/21 09:30 09/17/21 09:30 09/17/21 09:30 09/17/21 09:30 09/15/21 17:08 Oxygen Flow Rate (L/min) [5] 2 Oxygen Flow Rate (L/min) [4] 2 Oxygen Flow Rate (L/min) [3] 4 Oxygen Flow Rate (L/min) [2] 28 Oxygen Flow Rate (L/min) [1 ( 4 Initial Baseline)] Oxygen Delivery Method [5] Nasal Cannula Oxygen Delivery Method [4] Nasal Cannula Oxygen Delivery Method [3] Nasal Cannula Oxygen Delivery Method [2] Nasal Cannula Oxygen Delivery Method [1 ( Nasal Cannula Initial Baseline)] Oxygen Delivery Method Room Air Weight: 215 lb 2.738 oz Body Mass Index (BMI) 30.8 Intake & Output: Intake and Output for Last 24 Hours 09/15/21 09/16/21 09/17/21 23:59 23:59 23:59 Intake Total 600 / 600 Balance 600 / 600 Lab / Micro Data Result Diagrams: 09/15/21 18:00 09/15/21 18:00 Assessment & Plan Assessment/Plan (1) Recurrent dislocation of right hip: PLAN: Plan Patient remained stable. She continues to ambulate with physical therapy. She is ambulating adequate distances. She is pleasant on examination today. She is optimistic and looking forward to correction of this recurrent instability. No overnight events. No new medical issues. Again, patient surgery required significant time and at this time she remains ambulatory. We will continue to pursue this in an urgent manner however, I do not feel this warrants after our surgery. However, she has had dislocations both at a senior care facility and at home. This warrants close inpatient rehabilitation in the hospital setting as we prepare for surgical intervention. [facility] Office:
[2021-09-17] MEDS: Cholecalciferol (Vit D3) 125 MCG CAPSULE (5,000 UNITS) PO (10:23)
[2021-09-17 14:41] VITALS: BP 125/74; PULSE 78; RESP 17; TEMP 36.3; O2SAT 100
--- NOTE | 2021-09-17 18:55 | RAD_ITS ---
STUDY: X-RAY - PELVIS AND RIGHT HIP REASON FOR EXAM: Female, 71 years old. possible dislocation TECHNIQUE: XR Hip Unilateral with Pelvis when performed; 2-3 Views COMPARISON: 8.5.22 FINDINGS: There is a non-specific bowel gas pattern. Normal visualized soft tissue structures. Normal bilateral iliac wings, sacroiliac joints and visualized sacrum. Normal bilateral superior and inferior pubic rami. Normal pubic symphysis. Normal bilateral ischial tuberosities. Dislocation of the right hip prosthesis including the right hip acetabulum. RAD/HIP, UNI W/ Pelvis 2-3 Views IMPRESSION: Dislocation of the right hip prosthesis including the right hip acetabulum. Electronically Signed: Maurilio Orozco MD at 19:20 EDT ,
[2021-09-17 20:44] VITALS: BP 128/78; PULSE 76; RESP 16; TEMP 37; O2SAT 97
[2021-09-18] VITALS (15 sets, daily range): BP systolic 102–141; BP diastolic 52–88; PULSE 58–72; RESP 15–18; TEMP 36.6–36.8; O2SAT 94–100; BMI 30.9
--- NOTE | 2021-09-18 05:00 | EKG12_ITS ---
Test Reason : PRE-OP Blood Pressure : / mmHG Vent. Rate : 072 BPM Atrial Rate : 072 BPM P-R Int : 142 ms QRS Dur : 096 ms QT Int : 444 ms P-R-T Axes : 058 -25 033 degrees QTc Int : 486 ms Normal sinus rhythm Low voltage QRS Borderline ECG When compared with ECG of 15-SEP-2021 17:43, MANUAL COMPARISON REQUIRED, DATA IS UNCONFIRMED Confirmed by MATTHEW VARGAS, AMAIRANI ([id number]), sports editor DEMI FREEMAN ([id number]) on 09/21/2021 1:16:56 PM Referred By: JOHN Confirmed By:AMAIRANI CASTRO MD
[2021-09-18] MEDS: traMADol 50 MG Tablet PO (05:04)
[2021-09-18 06:05] LABS: Absolute Neutrophil Count 1.1 X10^3/uL (2.0-7.7); Basophil# 0.03 X10^3/uL; Basophil% 1.4 % (0-1); Eosinophil# 0.07 X10^3/uL; Eosinophils% 3.2 % (0-5); Hematocrit 32.4 % (37-47); Hemoglobin 10.4 g/dL (12.0-15.0); Lymphocyte % 32.4 % (19-41); Mean Corp Hgb Conc 32.1 g/dL (32-36); Mean Corpuscular Hgb 27.6 pg (27.0-32.0); Mean Corpuscular Volume 85.9 fL (81-99); Mean Platelet Vol. 11.1 fl (6.2-12.0); Monocyte% 13.9 % (0-10); NRBC Flagged by Analyzer 0 % (0-5); Neutrophil # 1.05 X10^3/uL (2.7-7.7); Neutrophil % 48.6 % (47-70); Platelet Count 122 K/mm3 (150-450); RBC Distribution Width CV 14.7 % (11.6-14.6); Red Blood Count 3.77 M/mm3 (4.2-5.4); White Blood Count 2.2 K/mm3 (4.4-11.0)
[2021-09-18 06:35] LABS: Anion Gap 5 (5-15); BUN 11 mg/dL (7-18); BUN/Creat Ratio 11.7 RATIO (10-20); Calcium,Total 7.6 mg/dL (8.5-10.1); Chloride 109 mmol/L (98-107); Creatinine, Serum 0.94 mg/dL (0.55-1.02); EST Glomerular Filtration Rate 62 mL/min (>60); Est Glom Filt Rate - Afr Amer 75 mL/min (>60); Glucose 95 mg/dL (74-106); Potassium 3.1 mmol/L (3.5-5.1); Sodium Level 142 mmol/L (136-145); Thyroid Stim Hormone (TSH) 0.16 uIU/mL (0.358-3.74)
[2021-09-18] MEDS: Levothyroxine 150 MCG Tablet PO (08:00)
[2021-09-18] MEDS: Metoprolol Tartrate 25 MG Tablet PO (08:29)
[2021-09-18] MEDS: Potassium Chloride 10mEq/100mL 10 MEQ/100 ML IV.SOLN. 100 MEQ IV BOLUS ×4 (09:00→17:00)
--- NOTE | 2021-09-18 10:02 | PN.HOSP_ITS ---
Subjective Subjective Patient seen and examined. She had no active complaints. During the night, her right hip again dislocated. She is due for surgery this morning. Pain is well controlled. Review of systems is otherwise negative. Objective Data Objective Data Vital Signs: Vital Signs Temp Pulse Resp BP Pulse Ox O2 Del Method O2 Flow Rate 98.2 F 72 18 128/78 H 97 Room Air 4 09/18/21 09:00 09/18/21 09:00 09/18/21 09:00 09/18/21 09:00 09/18/21 09:00 09/18/21 09:00 09/15/21 17:08 Oxygen Flow Rate (L/min) [5] 2 Oxygen Flow Rate (L/min) [4] 2 Oxygen Flow Rate (L/min) [3] 4 Oxygen Flow Rate (L/min) [2] 28 Oxygen Flow Rate (L/min) [1 ( 4 Initial Baseline)] Oxygen Delivery Method [5] Nasal Cannula Oxygen Delivery Method [4] Nasal Cannula Oxygen Delivery Method [3] Nasal Cannula Oxygen Delivery Method [2] Nasal Cannula Oxygen Delivery Method [1 ( Nasal Cannula Initial Baseline)] Oxygen Delivery Method Room Air Weight: 215 lb 2.738 oz Body Mass Index (BMI) 30.8 Intake & Output: Intake and Output for Last 24 Hours 09/16/21 09/17/21 09/18/21 23:59 23:59 23:59 Intake Total 600 / 600 200 / 200 Balance 600 / 600 200 / 200 Lab / Micro Data Result Diagrams: 09/18/21 05:55 09/18/21 05:55 Labs: Laboratory Results - last 24 hr 09/18/21 05:55: WBC 2.2 L, RBC 3.77 L, Hgb 10.4 L, Hct 32.4 L, MCV 85.9, MCH 27.6, MCHC 32.1, RDW Std Deviation 46.0 H, RDW Coeff of Rita 14.7 H, Plt Count 122 L, MPV 11.1, Immature Gran % (Auto) 0.500, Neut % (Auto) 48.6, Lymph % (Auto) 32.4, [place] % (Auto) 13.9 H, Eos % (Auto) 3.2, Baso % (Auto) 1.4 H, Absolute Neuts (auto) 1.1 L, Absolute Lymphs (auto) 0.70 L, Nucleated RBC % 0 09/18/21 05:55: Sodium 142, Potassium 3.1 L, Chloride 109 H, Carbon Dioxide 28.0, Anion Gap 5, BUN 11, Creatinine 0.94, Estim Creat Clear Calc 58.50, Est GFR (MDRD) Af Amer 75, Est GFR (MDRD) Non-Af 62, BUN/Creatinine Ratio 11.7, Glucose 95, Calcium 7.6 L, TSH 0.16 L 09/18/21 05:55: Blood Type A POSITIVE, Antibody Screen NEGATIVE Radiography Diagnostic Testing: Radiology Impression Hip/Pelvis X-Ray 09/17/21 18:55 IMPRESSION: Dislocation of the right hip prosthesis including the right hip acetabulum. Electronically Signed: Maurilio Orozco MD at 19:20 EDT Reading Location ID and State: [facility] / [place] , Service support , Physical Exam Const alert, oriented x3 and no apparent distress HEENT head/scalp atraumatic, moist oral mucous membranes and oropharynx normal Head and Scalp: normocephalic Eyes EOMs intact bilaterally and conjunctivae normal Neck no lymphadenopathy, supple and no JVD Resp normal respiratory effort, no retractions, no use of accessory muscles and clear to auscultation bilaterally Cardio regular rate, regular rhythm, S1 normal heart sound, S2 normal heart sound and no murmurs GI normal to inspection, nondistended, normoactive bowel sounds, soft to palpation, non-tender and non-distended Extremity normal to inspection Extremity Narrative: right knee immobilized in leg brace Neuro CN's II-XII intact bilaterally, no focal motor deficits and no sensory deficits noted Sensorium / Orientation: awake and alert Coordination / Balance: [id number] test normal Speech: speech normal Psych affect normal Assessment & Plan Assessment/Plan (1) Recurrent dislocation of right hip: (2) Physical debility: PLAN: Plan #Debility due to recurrent disclocation of the right hip * orthopedic surgery on board. For surgery today * currently on pain meds * PT.OT consulted * fall precautions * #Rheumatoid arthritis: on hyroxychloroquine and leflunomide. #Hypothyroidism; on sytnrhoid #Hypertension: on metoprolol #Obesity: BMI is 30.8. Complicates acute care, expected recovery and prognosis. DVT prophylaxis: lovenox Charges/Coding Visit Charges Inpatient E&M: 29068 Subs Hosp L2
--- NOTE | 2021-09-18 10:58 | CASEMGMT ---
Social Work SW in to meet with pt. SW introduced self and role at the hospital. Pt reports she has been living at the [facility] due to her hip dislocating 7-8 times since her first surgery. Pt explained she was receiving PT at the [facility] until she was ready for surgery. Patient was provided a list of?SNF?providers including quality and resource use data that is consistent with the patient?s preferred geographic region, medical needs, and insurance network. The patient?s top two preferred providers are 1. [facility] rehab Unit, 2. [facility], [facility]. SW shared pt progress following her surgery will be assessed by PT/OT and this provided a recommendation that will help insurance determine her need to go to a facility or not. Pt voiced understanding. Plan: RU/TCU vs. Home, depending on Pt recommendations following sx SANDEEP Felipe
--- NOTE | 2021-09-18 11:23 | NURSING ---
to O.R. via bed and surgery staff, 2nd k rider running on pump-surgery staff made aware of #3,#4 k riders to be given and ancef preop on pole
--- NOTE | 2021-09-18 12:24 | PN.ORTHO_ITS ---
Subjective Subjective Patient's hip dislocated at bedside when transferring legs. She remains comfortable. She is now restricted in activity. Objective Data Objective Data Vital Signs: Vital Signs Temp Pulse Resp BP Pulse Ox O2 Del Method O2 Flow Rate 98 F 72 18 128/78 H 98 Room Air 4 09/18/21 10:58 09/18/21 10:58 09/18/21 10:58 09/18/21 10:58 09/18/21 10:58 09/18/21 10:58 09/15/21 17:08 Oxygen Flow Rate (L/min) [5] 2 Oxygen Flow Rate (L/min) [4] 2 Oxygen Flow Rate (L/min) [3] 4 Oxygen Flow Rate (L/min) [2] 28 Oxygen Flow Rate (L/min) [1 ( 4 Initial Baseline)] Oxygen Delivery Method [5] Nasal Cannula Oxygen Delivery Method [4] Nasal Cannula Oxygen Delivery Method [3] Nasal Cannula Oxygen Delivery Method [2] Nasal Cannula Oxygen Delivery Method [1 ( Nasal Cannula Initial Baseline)] Oxygen Delivery Method Room Air Weight: 215 lb 2.738 oz Body Mass Index (BMI) 30.9 Intake & Output: Intake and Output for Last 24 Hours 09/16/21 09/17/21 09/18/21 23:59 23:59 23:59 Intake Total 600 / 600 300 / 300 Balance 600 / 600 300 / 300 Lab / Micro Data Result Diagrams: 09/18/21 05:55 09/18/21 05:55 Labs: Laboratory Results - last 24 hr 09/18/21 05:55: WBC 2.2 L, RBC 3.77 L, Hgb 10.4 L, Hct 32.4 L, MCV 85.9, MCH 27.6, MCHC 32.1, RDW Std Deviation 46.0 H, RDW Coeff of Rita 14.7 H, Plt Count 122 L, MPV 11.1, Immature Gran % (Auto) 0.500, Neut % (Auto) 48.6, Lymph % (Auto) 32.4, Turner % (Auto) 13.9 H, Eos % (Auto) 3.2, Baso % (Auto) 1.4 H, Absolute Neuts (auto) 1.1 L, Absolute Lymphs (auto) 0.70 L, Nucleated RBC % 0 09/18/21 05:55: Sodium 142, Potassium 3.1 L, Chloride 109 H, Carbon Dioxide 28.0, Anion Gap 5, BUN 11, Creatinine 0.94, Estim Creat Clear Calc 58.50, Est GFR (MDRD) Af Amer 75, Est GFR (MDRD) Non-Af 62, BUN/Creatinine Ratio 11.7, Glucose 95, Calcium 7.6 L, TSH 0.16 L 09/18/21 05:55: Blood Type A POSITIVE, Antibody Screen NEGATIVE Radiography Diagnostic Testing: Radiology Impression Hip/Pelvis X-Ray 09/17/21 18:55 IMPRESSION: Dislocation of the right hip prosthesis including the right hip acetabulum. Electronically Signed: Maurilio Orozco MD at 19:20 EDT , Assessment & Plan Assessment/Plan (1) Recurrent dislocation of right hip: PLAN: Due to patient's significant instability, she is redislocated. At this time we have elected to proceed with surgery today as opposed to placing her under additional sedation and reducing it and postponing surgery any longer. We also discussed the potential for postponing surgery while she remains dislocated however she has limited mobility and I did not wish to leave the patient on bedrest if not absolutely necessary. Based on this going to proceed with surgery this afternoon. Patient understands risk and benefits as discussed in previous visit in the office as well as previous visits here on the hospital. Patient would like to proceed with surgery her at bedside and agrees with this as well.
[2021-09-18] MEDS: dexAMETHasone 10 MG/ML Vial IV (12:30)
[2021-09-18] MEDS: Cefazolin 2 GM in 0.9% Normal Saline 100 ML IV ×2 (12:30→12:40)
[2021-09-18] MEDS: Acetaminophen 500 MG Tablet 1000 MG PO ×2 (12:30→21:02)
[2021-09-18] MEDS: Gabapentin 600 MG Tablet PO (12:30)
[2021-09-18] MEDS: TXA 1000mg in NS100 100ml (IVPB at Closure) 660 MG IV (13:00)
[2021-09-18] MEDS: TXA 1000mg in NS100 100ml (IVPB at Incision) 660 MG IV (14:35)
--- NOTE | 2021-09-18 14:41 | OP.PCM_ITS ---
Report of Operation Date of Procedure: 09/18/21 Pre-Operative Diagnosis: Failed right hip hemiarthroplasty, recurrent dislocati ons Post-Operative Diagnosis: Failed right hip hemiarthroplasty, recurrent dislocations Surgery/Procedure Performed:: Conversion previous hip surgery to total hip replacement Description of Surgical Findings:: Stable hip. Leg lengths restored. Combined anteversion was 40 degrees. Surgeon: Terell Erazo developmental mathematics professor: Hany Barbour Type of Anesthesia: General Anesthesiologist: Frankie Pearce Special Medications: 2 g Ancef, 1 g TXA at incision, 1 g TXA closure, 10 mg Decadron, joint cocktail (5 mg Duramorph, 30 mL of 0.5% Ropivicaine, 1000 units of epinephrine, 30 mg of Toradol) Specimen's removed: 3 separate specimens were sent to microbiology Estimated Blood Loss (mL): 200 Fluids Replaced: 1000 mL crystalloid Description of Procedure: Components used: 1. [place] MDM metal liner alpha code E 2. Amanda Trident 2 54 mm acetabular shell 2 screws 3. Amanda X3 polyethylene liner, MDM 40 2E 4. [place] cobalt-chromium 28 mm, 8 mm neck femoral head Brief history operative indications: 71-year-old female presented to me with previous right hip hemiarthroplasty roughly 3 months ago. She had roughly 7 dislocations. She dislocated in the hospital under close monitoring with physical therapy last evening. Based on this we elected to proceed with surgery and I emergent manner. Surgery plan was revision to total hip replacement, acetabular revision with possible femoral stem revision. Risks and benefits were discussed with the patient which included but were not limited to blood loss, DVTs, PEs, infection, neurovascular damage, and dislocation. In light of all this patient did agree to proceed with a total hip arthroplasty. Procedure: On the date of procedure the patient's R hip was marked in the preoperative area. Patient was then taken back to the operating room where anesthesia assumed control of the C-spine and airway and administered anesthetic. Patient was transferred to the operating table and placed in the lateral decubitus position with the affected hip up. The patient was secured in the bed with the lateral positioners and leg lengths were checked. The R lower extremity was then prepped out in a sterile fashion using chlorhexidine while the surgeon scrubbed. Upon reentering the room the R lower extremity was draped in the standard orthopedic fashion and the incision was marked. A timeout was called and everyone agreed upon the side, the site, the procedure be performed, antibiotics given, and patient's identity. At this time incision was made through skin, subcutaneous tissue, and fat down to fascia. The fascia was very flimsy. We carefully incised the fascia and then developed an appropriate fascial layer for repair later. The Charley retractor was placed. At this time after making our fasciotomy we could clearly see down to the hip. A synovectomy was performed and tissues were sent for culture. Hip was then dislocated. Bone tamp was used to dissociate the previous Candelario taper. An anterior pocket was made for the femoral component trunnion and the femur was retracted out of the way. Our attention was then directed to the acetabulum and the anterior retractor was placed and a zelpi was used to retract the posterior capsule superiorly. All soft tissue debris was removed from the pulvinar and labrum of the joint. The acetabulum was then sequentially reamed to 54 millimeters. The wound was copiously irrigated out with 6 L of normal saline with all retractors removed from tension on the skin. At this time a and 54 mm [place] titanium cup was opened and impacted into place. At this time we checked our acetabular version and abduction with a [place] guide. Once we are happy with the position 2 screws were placed in an orthogonal fashion. The MDM liner was then inserted and impacted into place. We carefully checked around the perimeter and appeared to be set equally in circumference engaging the Candelario taper. Candelario taper was tested and verified. Once it was securely fastened our attention was again turned towards the femur and the high offset neck was chosen and an MDM head with 8 mm offset was trialed. The hip was properly reduced using traction and external rotation. Stability was checked with the appropriate amount of shuck, no impingement with external rotation, and stable at 90? flexion and 90? internal rotation. Leg lengths were checked and were found to be equal on the table. Once the hip was determined to be stable the trial components were dislocated and the trial femoral head was removed. The final femoral head was opened trunnion was cleaned and the femoral head was assembled and impacted into place. Traction and external rotation were again used to reduce the hip. After adequate reduction the hip remained stable with appropriate leg lengths. The wound was lavaged out with a 3-minute dilute Betadine lavage and 1 minute chlorhexidine lavage. The wound was then copiously irrigated with normal saline once more, and hemostasis was obtained. The posterior capsule and piriformis were not repairable. Closure was then done using #1 Vicryl to close the fascia. A 2-0 Vicryl interrupted sutures were used to close the subcutaneous skin. Skin humera were used for final skin closure. A sterile dressing was placed. Patient was awakened by anesthesia and transferred to the [facility]. Patient was then transferred to the PACU for recovery. Postoperative plan: Patient will get 24 hours postop antibiotics. Patient will get in-house ph ysical therapy and will be weight-bear as tolerated. Patient will follow up in office in 2 weeks for a wound check and x-rays. 3 months of posterior strict hip precautions and 4 weeks of baby aspirin twice daily for DVT prophylaxis. Patient be placed on antibiotics for 2 weeks orally as we follow cultures. Complications No intraoperative complication Admit VTE Documentation VTE Present on Admission: No VTE Mechan Device Prophylaxis: SCD's and Thigh High DIANNA Hose VTE Pharm Prophylaxis ordered?: Yes
--- NOTE | 2021-09-18 15:40 | RAD_ITS ---
STUDY: X-RAY - PELVIS AND RIGHT HIP REASON FOR EXAM: Female, 71 years old. Post Op -- AP both hips on single betzaida/lateral of op hip PACU TECHNIQUE: 2 views of the pelvis and hip. COMPARISON: 09/17/2021 FINDINGS: There is a non-specific bowel gas pattern. Normal visualized soft tissue structures. Normal bilateral iliac wings, sacroiliac joints and visualized sacrum. Normal bilateral superior and inferior pubic rami. Normal pubic symphysis. Normal bilateral ischial tuberosities. Interval recent right hip arthroplasty with subcutaneous emphysema.. RAD/Hip Min 2 Views (Portable) IMPRESSION: Interval recent right hip arthroplasty. Electronically Signed: Luis Fernando Larose MD at 16:49 EDT ,
[2021-09-18] MEDS: Lactated Ringers 1,000 ML 999 ML IV (15:53)
[2021-09-18] MEDS: Ondansetron 4 MG/2 ML Vial IV (18:06)
[2021-09-18] MEDS: Ketorolac 15 MG/ML Vial IV (18:06)
[2021-09-18] MEDS: Hydroxychloroquine 200 MG Tablet PO (21:01)
[2021-09-18] MEDS: Cefazolin 1 GM/50 ML BAG IV (21:01)
[2021-09-18] MEDS: Senna/Docusate Sodium 1 Tablet 2 TABLET PO (21:03)
[2021-09-19] MEDS: traMADol 50 MG Tablet PO ×3 (00:08→18:41)
[2021-09-19 00:48] VITALS: BP 121/68; PULSE 65; RESP 16; TEMP 36.6; O2SAT 96
[2021-09-19 04:49] VITALS: BP 103/69; PULSE 78; RESP 16; TEMP 36.6; O2SAT 96
[2021-09-19] MEDS: Acetaminophen 500 MG Tablet 1000 MG PO ×2 (05:05→21:13)
[2021-09-19] MEDS: Cefazolin 1 GM/50 ML BAG IV (05:05)
[2021-09-19] MEDS: Levothyroxine 150 MCG Tablet PO (05:06)
[2021-09-19 06:26] LABS: Absolute Lymphocyte Count 0.27 X10^3/uL (0.83-4.51); Hematocrit 33.3 % (37-47); Hemoglobin 10.4 g/dL (12.0-15.0); Lymphocyte # 0.27 X10^3/ul (0.83-4.51); Lymphocyte % 4.9 % (19-41); Mean Corp Hgb Conc 31.2 g/dL (32-36); Mean Corpuscular Hgb 27.3 pg (27.0-32.0); Mean Corpuscular Volume 87.4 fL (81-99); Mean Platelet Vol. 12.6 fl (6.2-12.0); Monocyte# 0.26 X10^3/uL; Monocyte% 4.7 % (0-10); NRBC Flagged by Analyzer 0 % (0-5); Neutrophil # 4.96 X10^3/uL (2.7-7.7); Neutrophil % 89.9 % (47-70); POSITIVE DIFFERENTIAL YES; Platelet Count 146 K/mm3 (150-450); RBC Distribution Width CV 14.6 % (11.6-14.6); RBC Distribution Width SD 47.1 fl (35.1-43.9); Red Blood Count 3.81 M/mm3 (4.2-5.4); White Blood Count 5.5 K/mm3 (4.4-11.0)
[2021-09-19 06:33] LABS: Differential Indicated SCAN CRITERIA MET
[2021-09-19 06:56] LABS: Anion Gap 9 (5-15); BUN 14 mg/dL (7-18); Calcium,Total 7.3 mg/dL (8.5-10.1); Chloride 111 mmol/L (98-107); EST Glomerular Filtration Rate 58 mL/min (>60); Est Glom Filt Rate - Afr Amer 70 mL/min (>60); Estimated Creatinine Clearance 54.99 ml/min; Glucose 115 mg/dL (74-106); Potassium 4.3 mmol/L (3.5-5.1); Sodium Level 140 mmol/L (136-145)
[2021-09-19 07:03] LABS: Platelet Estimate SLT DEC (ADEQ)
--- NOTE | 2021-09-19 08:19 | PCM.PN.ORT ---
Subjective Subjective Patient in bathroom at time of entering room. Patient ambulating with use of a walker. Patient reports she is doing very well, her hip feels very stable. She has minimal pain at this time. Patient denies chest pain, shortness of breath, calf pain, nausea vomiting. Patient states she is ready for discharge home. Objective Data Objective Data Vital Signs: Vital Signs Temp Pulse Resp BP Pulse Ox O2 Del Method O2 Flow Rate 97.8 F 78 16 103/69 96 Room Air 3 09/19/21 04:49 09/19/21 04:49 09/19/21 04:49 09/19/21 04:49 09/19/21 04:49 09/19/21 04:49 09/18/21 20:46 Oxygen Flow Rate (L/min) [5] 2 Oxygen Flow Rate (L/min) [4] 2 Oxygen Flow Rate (L/min) [3] 4 Oxygen Flow Rate (L/min) [2] 28 Oxygen Flow Rate (L/min) [1 ( 4 Initial Baseline)] Oxygen Flow Rate (L/min) 3 Oxygen Delivery Method [5] Nasal Cannula Oxygen Delivery Method [4] Nasal Cannula Oxygen Delivery Method [3] Nasal Cannula Oxygen Delivery Method [2] Nasal Cannula Oxygen Delivery Method [1 ( Nasal Cannula Initial Baseline)] Oxygen Delivery Method Room Air Weight: 97.6 kg Body Mass Index (BMI) 30.9 Intake & Output: Intake and Output for Last 24 Hours 09/17/21 09/18/21 09/19/21 23:59 23:59 23:59 Intake Total 600 / 600 2090 / 2090 750 / 750 Output Total 700 / 700 Balance 600 / 600 1390 / 1390 750 / 750 Lab / Micro Data Result Diagrams: 09/19/21 05:03 09/19/21 05:03 Labs: Laboratory Results - last 24 hr 09/19/21 05:03: WBC 5.5, RBC 3.81 L, Hgb 10.4 L, Hct 33.3 L, MCV 87.4, MCH 27.3, MCHC 31.2 L, RDW Std Deviation 47.1 H, RDW Coeff of Rita 14.6, Plt Count 146 L, MPV 12.6 H, Immature Gran % (Auto) 0.500, Neut % (Auto) 89.9 H, Lymph % (Auto) 4.9 L, [place] % (Auto) 4.7, Eos % (Auto) 0.0, Baso % (Auto) 0.0, Absolute Neuts (auto) 5.0, Absolute Lymphs (auto) 0.27 L, Nucleated RBC % 0, Platelet Estimate SLT 09/19/21 05:03: Sodium 140, Potassium 4.3, Chloride 111 H, Carbon Dioxide 20.0 L, Anion Gap 9, BUN 14, Creatinine 1.00, Estim Creat Clear Calc 54.99, Est GFR (MDRD) Af Amer 70, Est GFR (MDRD) Non-Af 58 L, BUN/Creatinine Ratio 14.0, Glucose 115 H, Calcium 7.3 L, Free T4 1.80 H Radiography Diagnostic Testing: Radiology Impression Hip X-Ray 09/18/21 15:40 IMPRESSION: Interval recent right hip arthroplasty. Electronically Signed: Luis Fernando Larose MD at 16:49 EDT , Physical Exam Narrative Exam I found patient ambulating with a stable gait with use of a walker. Patient was in no respiratory distress, speaking in full sentences. Patient had excellent range of motion of the upper extremities with good muscle tone and strength. Patient's dressing was clean dry intact. Patient good motion of the lower extremities there is no calf tenderness or indication of a DVT. Neurovascular is otherwise intact. Const alert and oriented x3 General Appearance: cooperative HEENT normocephalic Eyes PERRL Resp normal respiratory effort Effort and Inspection: able to speak in complete sentences Extremity normal capillary refill Skin no rashes or lesions noted Neuro CN's II-XII intact bilaterally Psych mental status grossly normal and affect normal Assessment & Plan Assessment/Plan (1) History of revision of total replacement of right hip joint: PLAN: 1. Continue all pain medications as prescribed 2. Continue aspirin 81 mg 1 p.o. every 12 hours for 30 days for postop DVT prophylaxis 3. Encourage incentive spirometry 4. Continue physical therapy weight-bear as tolerated with walker 5. Follow-up with Dr. Erazo in 2 weeks call office for appointment, [phone]. 6. Patient can shower 09/21/2021 7. Discharge home when clear with medicine 8. Patient to schedule outpatient physical therapy at [facility] [place].
[2021-09-19 09:00] VITALS: BP 105/64; PULSE 97; RESP 16; TEMP 36.6; O2SAT 96
[2021-09-19 09:51] VITALS: PULSE 99
[2021-09-19] MEDS: Aspirin 81 MG TAB.CHEW PO ×2 (09:51→21:13)
[2021-09-19] MEDS: Iron Polysaccharide Complex 150 MG CAPSULE PO (09:51)
[2021-09-19] MEDS: Metoprolol Tartrate 25 MG Tablet PO (09:51)
[2021-09-19] MEDS: Leflunomide 10 MG TABLET 20 MG PO (09:52)
[2021-09-19] MEDS: Cholecalciferol (Vit D3) 125 MCG CAPSULE (5,000 UNITS) PO (09:52)
[2021-09-19] MEDS: Hydroxychloroquine 200 MG Tablet PO ×2 (09:52→21:13)
[2021-09-19] MEDS: Famotidine 20 MG Tablet PO (09:52)
--- NOTE | 2021-09-19 09:58 | CASEMGMT ---
Social Work SW notified by Aleena at [facility] that patient has been approved to go to either facility, but [facility] will not have a bed for her until tomorrow. SW in to meet with pt, shared details and patient stated she wants to go to the Rehab Unit so she can get as much PT as possible. SW updated Aleena who discussed intent to update the roster. Plan: Inpatient Rehab Unit (4th floor) tomorrow, if medically ready. SANDEEP Felipe
--- NOTE | 2021-09-19 10:40 | PN.HOSP_ITS ---
Subjective Subjective Patient seen and examined. She has no active complaints. Her pain is well controlled. Review of systems is otherwise negative. Her TSH is noted to be really low, and free T4 is elevated. Review of systems otherwise negative. Objective Data Objective Data Vital Signs: Vital Signs Temp Pulse Resp BP Pulse Ox O2 Del Method O2 Flow Rate 97.8 F 99 16 103/69 96 Room Air 3 09/19/21 04:49 09/19/21 09:51 09/19/21 04:49 09/19/21 04:49 09/19/21 04:49 09/19/21 04:49 09/18/21 20:46 Oxygen Flow Rate (L/min) [5] 2 Oxygen Flow Rate (L/min) [4] 2 Oxygen Flow Rate (L/min) [3] 4 Oxygen Flow Rate (L/min) [2] 28 Oxygen Flow Rate (L/min) [1 ( 4 Initial Baseline)] Oxygen Flow Rate (L/min) 3 Oxygen Delivery Method [5] Nasal Cannula Oxygen Delivery Method [4] Nasal Cannula Oxygen Delivery Method [3] Nasal Cannula Oxygen Delivery Method [2] Nasal Cannula Oxygen Delivery Method [1 ( Nasal Cannula Initial Baseline)] Oxygen Delivery Method Room Air Weight: 215 lb 2.738 oz Body Mass Index (BMI) 30.9 Intake & Output: Intake and Output for Last 24 Hours 09/17/21 09/18/21 09/19/21 23:59 23:59 23:59 Intake Total 600 / 600 2090 / 2090 750 / 750 Output Total 700 / 700 Balance 600 / 600 1390 / 1390 750 / 750 Lab / Micro Data Result Diagrams: 09/19/21 05:03 09/19/21 05:03 Labs: Laboratory Results - last 24 hr 09/19/21 05:03: WBC 5.5, RBC 3.81 L, Hgb 10.4 L, Hct 33.3 L, MCV 87.4, MCH 27.3, MCHC 31.2 L, RDW Std Deviation 47.1 H, RDW Coeff of Rita 14.6, Plt Count 146 L, MPV 12.6 H, Immature Gran % (Auto) 0.500, Neut % (Auto) 89.9 H, Lymph % (Auto) 4.9 L, [place] % (Auto) 4.7, Eos % (Auto) 0.0, Baso % (Auto) 0.0, Absolute Neuts (auto) 5.0, Absolute Lymphs (auto) 0.27 L, Nucleated RBC % 0, Platelet Estimate SLT 09/19/21 05:03: Sodium 140, Potassium 4.3, Chloride 111 H, Carbon Dioxide 20.0 L , Anion Gap 9, BUN 14, Creatinine 1.00, Estim Creat Clear Calc 54.99, Est GFR (MDRD) Af Amer 70, Est GFR (MDRD) Non-Af 58 L, BUN/Creatinine Ratio 14.0, Glucose 115 H, Calcium 7.3 L, Free T4 1.80 H Radiography Diagnostic Testing: Radiology Impression Hip X-Ray 09/18/21 15:40 IMPRESSION: Interval recent right hip arthroplasty. Electronically Signed: Luis Fernando Larose MD at 16:49 EDT , Physical Exam Const alert, oriented x3 and no apparent distress HEENT normocephalic, head/scalp atraumatic, moist oral mucous membranes and oropharynx normal Eyes PERRL, EOMs intact bilaterally and conjunctivae normal Neck no lymphadenopathy, supple and no JVD Resp normal respiratory effort, no retractions, no use of accessory muscles and clear to auscultation bilaterally Cardio regular rate, regular rhythm, S1 normal heart sound, S2 normal heart sound and no murmurs GI normal to inspection, nondistended, normoactive bowel sounds, soft to palpation, non-tender and non-distended Extremity normal to inspection Extremity Narrative: both LEs in DIANNA stockings Neuro oriented x3, CN's II-XII intact bilaterally, moves all extremities, no focal motor deficits and no sensory deficits noted Sensorium / Orientation: awake and alert Coordination / Balance: [id number] test normal Speech: speech normal Motor Exam: strength 5/5 throughout Psych affect normal Assessment & Plan Assessment/Plan (1) Recurrent dislocation of right hip: (2) Physical debility: PLAN: Plan #Debility due to recurrent disclocation of the right hip * today is POD 1; for right conversion of previous hip surgery to total hip replacement * orthopedic surgery on board. For surgery today * currently on pain meds- tramadol and toradol * PT/OT on board * fall precautions * #Rheumatoid arthritis: on hyroxychloroquine and leflunomide. #Hypothyroidism: * TSH is markedly low at 0.16, and free T4 at 1.8. * Will therefore reduce synthroid dose to 100mcg daily due to iatrogenic hyperthyroidism. #Hypertension: on metoprolol #Obesity: BMI is 30.8. Complicates acute care, expected recovery and prognosis. DVT prophylaxis: lovenox Disposition: for dc to SNF tomorrow Charges/Coding Visit Charges Inpatient E&M: 02263 Subs Hosp L2
[2021-09-19 16:43] VITALS: BP 97/51; PULSE 75; RESP 15; TEMP 36.2; O2SAT 100
[2021-09-19 20:58] VITALS: BP 102/58; PULSE 79; RESP 16; TEMP 36.6; O2SAT 99
[2021-09-19] MEDS: Doxycycline 100 MG CAPSULE PO (21:13)
[2021-09-20] MEDS: traMADol 50 MG Tablet PO ×4 (00:54→17:21)
[2021-09-20 03:36] VITALS: BP 95/57; PULSE 86; RESP 16; TEMP 36.5; O2SAT 98
[2021-09-20] MEDS: Acetaminophen 500 MG Tablet 1000 MG PO ×2 (06:05→13:24)
[2021-09-20] MEDS: Levothyroxine 100 MCG Tablet PO (06:06)
[2021-09-20 07:11] LABS: Absolute Lymphocyte Count 0.71 X10^3/uL (0.83-4.51); Absolute Neutrophil Count 3.5 X10^3/uL (2.0-7.7); Basophil# 0.02 X10^3/uL; Basophil% 0.4 % (0-1); Hematocrit 31.2 % (37-47); Hemoglobin 9.7 g/dL (12.0-15.0); Lymphocyte # 0.71 X10^3/ul (0.83-4.51); Mean Corp Hgb Conc 31.1 g/dL (32-36); Mean Corpuscular Hgb 26.9 pg (27.0-32.0); Mean Corpuscular Volume 86.7 fL (81-99); Mean Platelet Vol. 11.5 fl (6.2-12.0); Monocyte# 0.48 X10^3/uL; Monocyte% 10.2 % (0-10); NRBC Flagged by Analyzer 0 % (0-5); Neutrophil % 74.2 % (47-70); Platelet Count 133 K/mm3 (150-450); RBC Distribution Width CV 14.9 % (11.6-14.6); RBC Distribution Width SD 47.7 fl (35.1-43.9); White Blood Count 4.7 K/mm3 (4.4-11.0)
[2021-09-20 07:42] LABS: Anion Gap 9 (5-15); BUN 21 mg/dL (7-18); BUN/Creat Ratio 18.4 RATIO (10-20); Calcium,Total 7.8 mg/dL (8.5-10.1); Chloride 110 mmol/L (98-107); Creatinine, Serum 1.14 mg/dL (0.55-1.02); EST Glomerular Filtration Rate 50 mL/min (>60); Est Glom Filt Rate - Afr Amer 60 mL/min (>60); Estimated Creatinine Clearance 48.24 ml/min; Glucose 74 mg/dL (74-106); Potassium 3.9 mmol/L (3.5-5.1); Sodium Level 140 mmol/L (136-145)
[2021-09-20 08:30] VITALS: BP 100/49; PULSE 80; RESP 16; TEMP 36.5; O2SAT 95
[2021-09-20] MEDS: Leflunomide 10 MG TABLET 20 MG PO (09:23)
[2021-09-20] MEDS: Iron Polysaccharide Complex 150 MG CAPSULE PO (09:23)
[2021-09-20] MEDS: Doxycycline 100 MG CAPSULE PO (09:23)
[2021-09-20] MEDS: Aspirin 81 MG TAB.CHEW PO (09:23)
[2021-09-20] MEDS: Cholecalciferol (Vit D3) 125 MCG CAPSULE (5,000 UNITS) PO (09:23)
[2021-09-20 09:24] VITALS: BP 100/49
[2021-09-20] MEDS: Hydroxychloroquine 200 MG Tablet PO (09:24)
[2021-09-20] MEDS: Famotidine 20 MG Tablet PO (09:24)
--- NOTE | 2021-09-20 11:22 | DS.PCM_ITS ---
Providers Date of Admission: 09/16/21 Date of Discharge: 09/20/21 Primary Care Physician: Dr. Billy Church MD Consultations 09/15/21 19:36 Consult: Orthopedics Routine Consulting Provider: Terell Erazo Reason for Consult: right hip dislocation EMERGENT Consult: No MD Notified: Yes Date Notified: 09/15/21 Time Notified: 18:38 Method of Notification: Verbal Reason For Visit: HIP DISLOCATION Diagnosis Discharge Diagnosis (1) Recurrent dislocation of right hip: Status: Acute Code(s): M24.451 - Recurrent dislocation, right hip (2) Physical debility: Status: Acute Code(s): R53.81 - Other malaise Plan #Debility due to recurrent disclocation of the right hip * today is POD 1; for right conversion of previous hip surgery to total hip replacement * orthopedic surgery on board. For surgery today * currently on pain meds- tramadol and toradol * PT/OT on board * fall precautions * #Rheumatoid arthritis: on hyroxychloroquine and leflunomide. #Hypothyroidism: * TSH is markedly low at 0.16, and free T4 at 1.8. * Will therefore reduce synthroid dose to 100mcg daily due to iatrogenic hyperthyroidism. #Hypertension: on metoprolol #Obesity: BMI is 30.8. Complicates acute care, expected recovery and prognosis. DVT prophylaxis: lovenox Disposition: for dc to SNF tomorrow Medications at Discharge Home Medications hydroxychloroquine 200 mg tablet 200 mg PO BID Arthritis 02/19/13 leflunomide 20 mg tablet 20 mg PO DAILY R.A. 02/19/13 cholecalciferol (vitamin D3) 50 mcg (2,000 unit) tablet 2,000 unit PO DAILY SUPPLEMENT 01/22/17 loratadine-pseudoephedrine ER 10 mg-240 mg tablet,extended [id number] (Claritin-D 24 Hour) 1 tab PO QAM PRN Sinus Symptoms 01/22/17 levothyroxine 150 mcg tablet 150 mcg PO DAILY THYROID 06/06/21 ipratropium bromide 42 mcg (0.06 %) nasal spray 2 spray NASAL TID Check with primary doctor 30 days #15 mL 07/17/21 polysaccharide iron complex 150 mg iron capsule (Ferrex) 150 mg PO DAILY 30 days #30 caps 07/17/21 metoprolol tartrate 50 mg tablet 25 mg PO DAILY BP 08/17/21 aspirin 81 mg chewable tablet 81 mg PO BID #60 tabs 09/20/21 tramadol 50 mg tablet 50 mg PO Q6H PRN pain 3 days #12 tabs 09/20/21 Hospital Course Operations - (conversion of previous hip surgery to total hip replacement) Summary of Care Provided Minutes Spent on Discharge: 45 Hospital Course: Patient is a 71-year-old female with past medical history as outlined was admitted through the ED from a retirement facility on 09/15/2021 with a complaint of right hip dislocation. Patient had had multiple hip dislocations and this was her seventh right hip dislocation. She was working with physical therapy at a retirement facility when on getting out of her wheelchair her right hip dislocated. She had been scheduled to have surgery on 21 September for her hip. She was brought to the ED and orthopedic surgery was consulted. The hip was replaced in the ED. However given her frequent dislocations and instability of the right hip, orthopedic surgery recommended repeat surgery. She was admitted and managed for debility due to recurrent right hip dislocations. She had conversion of the previous hip surgery to total hip replacement on 09/18/2021. She tolerated surgery well. Postop course was not complicated. She remained stable and was discharged back to retirement facility on 09/20/2021. Patient was seen and examined prior to discharge. She had no active complaints and had an uneventful night. Pain was well controlled. Review of systems otherwise negative. Labs and vitals reviewed. Medication reviewed and reconciled. Physical Exam Const alert, oriented x3 and no apparent distress Constitutional Narrative: up in bed. General Appearance: cooperative, comfortable and well kempt Orientation / Consciousness: awake HEENT normocephalic, head/scalp atraumatic, hearing grossly normal bilaterally, moist oral mucous membranes and oropharynx normal Eyes PERRL, EOMs intact bilaterally and conjunctivae normal Neck no lymphadenopathy, supple and no JVD Resp normal respiratory effort, no retractions, no use of accessory muscles and clear to auscultation bilaterally Cardio regular rate, regular rhythm, S1 normal heart sound, S2 normal heart sound and no murmurs GI normal to inspection, nondistended, normoactive bowel sounds, soft to palpation, non-tender and non-distended Extremity normal to inspection Extremity Narrative: both LEs in DIANNA stockings; intact ressing over surgical site Skin no rashes or lesions noted Neuro oriented x3, CN's II-XII intact bilaterally, moves all extremities, no focal motor deficits and no sensory deficits noted Sensorium / Orientation: awake and alert Coordination / Balance: [id number]-ca-[id number] test normal Speech: speech normal Motor Exam: strength 5/5 throughout Psych affect normal Weight / BMI Weight Weight: 215 lb 2.738 oz Body Mass Index (BMI) 30.9 ABG / Lab / Microbiology Data Result Diagrams: 09/20/21 07:00 09/20/21 07:00 Laboratory: Laboratory Results - last 24 hr 09/20/21 07:00: WBC 4.7, RBC 3.60 L, Hgb 9.7 L, Hct 31.2 L, MCV 86.7, MCH 26.9 L , MCHC 31.1 L, RDW Std Deviation 47.7 H, RDW Coeff of Rita 14.9 H, Plt Count 133 L, MPV 11.5, Immature Gran % (Auto) 0.200, Neut % (Auto) 74.2 H, Lymph % (Auto) 15.0 L, Wake % (Auto) 10.2 H, Eos % (Auto) 0.0, Baso % (Auto) 0.4, Absolute Neuts (auto) 3.5, Absolute Lymphs (auto) 0.71 L, Nucleated RBC % 0 09/20/21 07:00: Sodium 140, Potassium 3.9, Chloride 110 H, Carbon Dioxide 21.0, Anion Gap 9, BUN 21 H, Creatinine 1.14 H, Estim Creat Clear Calc 48.24, Est GFR (MDRD) Af Amer 60, Est GFR (MDRD) Non-Af 50 L, BUN/Creatinine Ratio 18.4, Glucose 74, Calcium 7.8 L Microbiology: Microbiology 09/18/21 15:11 Tissue - Hip Gram Stain - Final 09/18/21 15:11 Tissue - Hip Wound Culture - Preliminary No growth-Final to follow 09/18/21 15:11 Tissue - Hip Anaerobic Culture - Preliminary No growth in 48 hours. 09/18/21 14:10 Tissue - Hip Gram Stain - Final 09/18/21 14:10 Tissue - Hip Wound Culture - Preliminary No growth-Final to follow 09/18/21 14:10 Tissue - Hip Anaerobic Culture - Preliminary No growth in 48 hours. 09/18/21 Unknown Tissue - Hip Gram Stain - Final 09/18/21 Unknown Tissue - Hip Wound Culture - Preliminary No growth-Final to follow 09/18/21 Unknown Tissue - Hip Anaerobic Culture - Preliminary No growth in 48 hours. D/C Instructions Discharge Diet: Low fat / Low cholesterol Discharge Activity: Return to Normal Activity Weight Bearing Status: Weight bearing as tolerated Call your doctor if you observe: Fever of 101 or Higher, Shortness of breath, Dizziness, Swelling in the ankles, Chest pain and Uncontrolled pain Meaningful Use Info Meaningful Use Diagnoses (Choose all that apply): None applicable Discharge Plan Admission Admit Date/Time: 09/16/21 13:24 Primary Reason for Your Visit: recurrent right hip dislocation Attending Provider: Cindy Belle Primary Care Provider: Billy Church Consulting Providers: Terell Erazo ; Mauro Denise Instructions Patient Instructions: ED Joint Dislocation, ED Hip Replace Dislocation Reduc Discharge Orders/Prescriptions Prescriptions: New aspirin 81 mg Tablet,Chewable 81 mg PO BID Qty: 60 0RF tramadol 50 mg tablet 50 mg PO Q6H PRN (Reason: pain) 3 Days Qty: 12 0RF Continued loratadine-pseudoephedrine [Claritin-D 24 Hour] 10-240 mg tablet extended release 24 hr 1 tab PO QAM PRN (Reason: Sinus Symptoms) leflunomide 20 MG tablet 20 mg PO DAILY Hold Instructions: Resume on 06/22/21. Label Comments: RHEUMATOID ARTHRITIS hydroxychloroquine 200 MG tablet 200 mg PO BID Label Comments: RHEUMATOID ARTHRITIS cholecalciferol (vitamin D3) 2,000 UNIT tablet 2,000 unit PO DAILY Label Comments: SUPPLEMENT levothyroxine 150 mcg tablet 150 mcg PO DAILY polysaccharide iron complex [Ferrex 150] 150 mg iron Capsule 150 mg PO DAILY 30 Days Qty: 30 0RF ipratropium bromide 42 mcg (0.06 %) spray,non-aerosol 2 spray NASAL TID 30 Days Qty: 15 0RF metoprolol tartrate 50 mg tablet 25 mg PO DAILY Discontinued tramadol 50 mg tablet 50 mg PO Q6H 7 Days Qty: 28 0RF Label Comments: 1-2 tabs Referrals / Follow Up: Jay Crawford MD [Med Staff - Active Staff] - Within 2 Weeks Billy Church MD [Primary Care Provider] - Terell Earzo MD [Med Staff - Active Staff] - Within 2 Weeks Disposition Disposition (needs filled in before D/C Order can be placed): Long-Term F acility Charges/Coding Visit Charges Inpatient E&M: 81734 Disch Hosp
--- NOTE | 2021-09-20 11:30 | TREXTCAR_ITS ---
Diet Diet Order/Speech Therapy: 09/19/21 10:52 Diet: Regular - General Type of Dietary Supplement:: Ensure Clear Is pt able to select menu?: Yes Diet Comments: 120ml ensure clear TID w/ meals Routine Orders/Code Status Enema Type: Fleetz Enema Frequency: Daily PRN Suppository Type: Dulcolax 10mg Suppository Frequency: Daily PRN Wound(s) r hip: Wound Type: Surgical Incision Therapies Weight Bearing: Weight bearing as tolerated Physical Therapy: Eval and Treat Occupational Therapy: Eval and Treat Problem/Diagnosis (1) Recurrent dislocation of right hip: Status: Acute Code(s): M24.451 - Recurrent dislocation, right hip (2) Physical debility: Status: Acute Code(s): R53.81 - Other malaise Plan #Debility due to recurrent disclocation of the right hip * today is POD 1; for right conversion of previous hip surgery to total hip replacement * orthopedic surgery on board. For surgery today * currently on pain meds- tramadol and toradol * PT/OT on board * fall precautions * #Rheumatoid arthritis: on hyroxychloroquine and leflunomide. #Hypothyroidism: * TSH is markedly low at 0.16, and free T4 at 1.8. * Will therefore reduce synthroid dose to 100mcg daily due to iatrogenic hyperthyroidism. #Hypertension: on metoprolol #Obesity: BMI is 30.8. Complicates acute care, expected recovery and prognosis. DVT prophylaxis: lovenox Disposition: for dc to SNF tomorrow Allergies/Procedures Done in Hospital Allergies amoxicillin trihydrate [From Augmentin] Adverse Reaction (Verified 09/15/21 14:36) Vomiting hydrocodone Adverse Reaction (Verified 09/15/21 14:36) Vomiting ANESTHESIA Adverse Reaction (Uncoded 09/15/21 14:36) Unknown MUSCLE PAIN, LEGS AND ARMS, SCREAMING Procedures: None Type of Care/Length of Stay Estimated LOS: Convalescent Care Less Than 30 days Type of Care Needed: Skilled Rehab Potential: Fair Prognosis: Fair Additional Orders/Day of Discharge Day of Discharge: 09/20/21 Dietary and Speech Recommendations Dietitian Recommendations/Changes: Advance diet as medically able to Regular diet. Will d/c ensure enlive with medpass as patient is refusing. Will add 120 ml ensure clear TID w/ meals as tolerated. Trend weight as available. Noted plans for d/c to rehab unit. Discharge Plan Admission Admit Date/Time: 09/16/21 13:24 Primary Reason for Your Visit: recurrent right hip dislocation Attending Provider: Cindy Belle Primary Care Provider: Billy Church Consulting Providers: Terell Erazo ; Mauro Denise Instructions Patient Instructions: ED Joint Dislocation, ED Hip Replace Dislocation Reduc Discharge Orders/Prescriptions Prescriptions: New aspirin 81 mg Tablet,Chewable 81 mg PO BID Qty: 60 0RF tramadol 50 mg tablet 50 mg PO Q6H PRN (Reason: pain) 3 Days Qty: 12 0RF Continued loratadine-pseudoephedrine [Claritin-D 24 Hour] 10-240 mg tablet extended release 24 hr 1 tab PO QAM PRN (Reason: Sinus Symptoms) leflunomide 20 MG tablet 20 mg PO DAILY Hold Instructions: Resume on 06/22/21. Label Comments: RHEUMATOID ARTHRITIS hydroxychloroquine 200 MG tablet 200 mg PO BID Label Comments: RHEUMATOID ARTHRITIS cholecalciferol (vitamin D3) 2,000 UNIT tablet 2,000 unit PO DAILY Label Comments: SUPPLEMENT levothyroxine 150 mcg tablet 150 mcg PO DAILY polysaccharide iron complex [Ferrex 150] 150 mg iron Capsule 150 mg PO DAILY 30 Days Qty: 30 0RF ipratropium bromide 42 mcg (0.06 %) spray,non-aerosol 2 spray NASAL TID 30 Days Qty: 15 0RF metoprolol tartrate 50 mg tablet 25 mg PO DAILY Discontinued tramadol 50 mg tablet 50 mg PO Q6H 7 Days Qty: 28 0RF Label Comments: 1-2 tabs Referrals / Follow Up: Jay Crawford MD [Med Staff - Active Staff] - Within 2 Weeks Billy Church MD [Primary Care Provider] - Terell Erazo MD [Med Staff - Active Staff] - Within 2 Weeks Disposition Disposition (needs filled in before D/C Order can be placed): [facility] Facility
--- NOTE | 2021-09-20 11:53 | CASEMGMT ---
Social Work SW in to discuss discharge to Rehab Unit with pt. Pt expressed that she had been notified she is discharging today. Sw asked if pt would like her to be notified of her move to the 4th floor rehab. Pt refused, stating she would call him this afternoon. SANDEEP Felipe
[2021-09-20 13:28] VITALS: BP 104/70; PULSE 93
[2021-09-20] MEDS: Metoprolol Tartrate 25 MG Tablet PO (13:28)
[2021-09-20 14:00] VITALS: BP 104/70; PULSE 96; RESP 16; TEMP 36.2; O2SAT 94
--- NOTE | 2021-09-20 14:07 | PHA.DC.MR ---
Pharmacy Service has performed discharge medication reconciliation for this patient. The patient's discharge medication list was reviewed for discrepancies and discrepancies were resolved. Home Medications hydroxychloroquine 200 mg tablet 200 mg PO BID Arthritis 02/19/13 leflunomide 20 mg tablet 20 mg PO DAILY R.A. 02/19/13 cholecalciferol (vitamin D3) 50 mcg (2,000 unit) tablet 2,000 unit PO DAILY SUPPLEMENT 01/22/17 loratadine-pseudoephedrine ER 10 mg-240 mg tablet,extended [id number] (Claritin-D 24 Hour) 1 tab PO QAM PRN Sinus Symptoms 01/22/17 levothyroxine 150 mcg tablet 150 mcg PO DAILY THYROID 06/06/21 ipratropium bromide 42 mcg (0.06 %) nasal spray 2 spray NASAL TID Check with primary doctor 30 days #15 mL 07/17/21 polysaccharide iron complex 150 mg iron capsule (Ferrex) 150 mg PO DAILY 30 days #30 caps 07/17/21 metoprolol tartrate 50 mg tablet 25 mg PO DAILY BP 08/17/21 aspirin 81 mg chewable tablet 81 mg PO BID #60 tabs 09/20/21 tramadol 50 mg tablet 50 mg PO Q6H PRN pain 3 days #12 tabs 09/20/21
--- NOTE | 2021-09-20 17:55 | NURSING ---
REPORT CALLED TO JAYDA Grant RN ON REHAB UNIT. PT WILL GO TO ROOM [id number]
== END 2021-09-20 18:08 | disposition skilled nursing facility (03) | DRG 467 ==
LOC: ED 18:06 → MS3 18:44
PROVIDERS: Specialist; Emergency Provider Emergency Medicine; PCP Family Medicine; Visit Provider Student in an Organized Health Care Education/Training Program
PROC: (CPT 27134; principal; 2021-09-18 12:30)
DX: M24.451 Recurrent dislocation, right hip (principal); E44.0 Moderate protein-calorie malnutrition; E11.40 Type 2 diabetes mellitus with diabetic neuropathy, unspecified; E66.01 Morbid (severe) obesity due to excess calories; M06.9 Rheumatoid arthritis, unspecified; I10 Essential (primary) hypertension; E03.9 Hypothyroidism, unspecified; E55.9 Vitamin D deficiency, unspecified; M25.351 Other instability, right hip; R53.81 Other malaise; Z68.35 Body mass index [BMI] 35.0-35.9, adult; Z79.899 Other long term (current) drug therapy; Z79.890 Hormone replacement therapy
CPT/HCPCS: 36415; 73502; 80048; 84439; 84443; 85025; 86850; 86900; 86901; 87015; 87070; 87075; 87102; 87116; 87205; 87206; 93005; 97110; 97116; 97162; 97166; 97530; 97535; 97802; 99152; 99251; 99285; C1776; J7030; J7050; J7120; A4216; G0463; J2405

== ENCOUNTER 2021-09-20 18:24 | Inpatient (IN) | payer MEDICARE, BC, SELFPAY ==
[2021-09-20 18:47] VITALS: BP 115/62; PULSE 75; RESP 16; TEMP 36.4; O2SAT 100; BMI 31.2
[2021-09-20] MEDS: traMADol 50 MG Tablet PO (20:48)
[2021-09-20] MEDS: Acetaminophen 500 MG Tablet 1000 MG PO (20:48)
[2021-09-20] MEDS: Hydroxychloroquine 200 MG Tablet PO (20:49)
[2021-09-20] MEDS: Aspirin 81 MG TAB.CHEW PO (20:49)
[2021-09-21] MEDS: Acetaminophen 500 MG Tablet 1000 MG PO ×3 (05:14→20:44)
[2021-09-21] MEDS: Levothyroxine 150 MCG Tablet PO (05:15)
[2021-09-21] MEDS: traMADol 50 MG Tablet PO ×3 (05:17→20:55)
[2021-09-21 07:45] VITALS: BP 121/55; PULSE 83; RESP 16; TEMP 36.1; O2SAT 100
[2021-09-21 07:58] VITALS: BP 121/55; PULSE 83
[2021-09-21] MEDS: Iron Polysaccharide Complex 150 MG CAPSULE PO (07:58)
[2021-09-21] MEDS: Metoprolol Tartrate 25 MG Tablet PO (07:58)
[2021-09-21] MEDS: Hydroxychloroquine 200 MG Tablet PO ×2 (07:58→20:44)
[2021-09-21] MEDS: Cholecalciferol (VIT D3) 25 MCG TABLET (1,000 UNITS) 50 MCG PO (07:58)
[2021-09-21] MEDS: Leflunomide 10 MG TABLET 20 MG PO (07:59)
[2021-09-21] MEDS: Ensure Clear 120 ML Liquid PO (07:59)
[2021-09-21] MEDS: Aspirin 81 MG TAB.CHEW PO ×2 (07:59→17:10)
--- NOTE | 2021-09-21 09:47 | PCM.HP.STD ---
HPI - General General Date of Admission: 09/20/21 Date of Service: 09/21/21 Chief Complaint: Physical debility due to recurrent dislocation of previous right hip arthroplasty and conversion to a R THR. HPI Narrative LORA AGUIRRE, is a 71 YO?F with a PMH of hypertension, hyperlipidemia, diabetes mellitus type 2, obesity, allergic rhinitis, rheumatoid arthritis, hypothyroidism, R hip cemented hemiarthroplasty on 06/07/21 for R hip fracture and osteoarthritis who presented to the emergency department at [facility] on 09/15/2021 with a right hip dislocation. This was the seventh dislocation of her right hip since the right hip cemented hemiarthroplasty on 06/07/2021. She has been following up with Dr. Erazo who made the decision to schedule Lora for a total right hip replacement 09/18/2021. While in the hospital an incidental finding was a low TSH at 0.16 with an elevated free T4 at 1.8. The Synthroid dose was decreased to 100 mcg daily. She was seen by PT/OT in the hospital and they recommended admission to rehab at [facility] from the hospital. On her 2nd post op day she was transferred to the acute rehab unit at [facility] for 3 hours of therapy daily to restore function/independence at or near her prior level of function. Since the initial hemiarthroplasty on 06/07/2021 she has been home only a total of 4 days due to multiple dislocations. At her last admission to rehab Lora had issues with memory and a NC CTB showed cerebral atrophy. Per my review the atrophy seemed worst in the frontotemporal lobes. Some of these issues were related to medications and by the time she was discharged she was better able to follow a conversation and remember things told to her by the therapists. She was seen by ST during that visit in June 2021. There is no mention of difficulties with memory and thought processes on the current. DCS from the hospital. She remembered me and Katy De Leon immediately when she saw us and asked about my dog Buster who she met at the last visit. She also remembered Elle who is the therapy dog on rehab and TCU. Mine tells me that since she was in rehab she spent some time in [place] for depression. She saw a psychiatrist and was placed on a antidepressant. Review of the DC medications from the [facility] side of the hospital does not include an antidepressant. Mine can not recall what the name of the antidepressant is so we will need to call [facility] to get a list of the medications she was taking prior to being sent to the ED recently for a hip dislocation. FOR[facility]LY [facility], [facility] Medical History (Updated 09/21/21 @ 16:[address] Haydee Brady DO) Allergic rhinitis Back pain due to injury Breast lump Chronic mental illness Chronic renal failure, stage 3a Depression Fall at home Fracture of hip, right, closed Goiter History of blood transfusion History of uterine fibroid HTN (hypertension) Hypertension Hypothyroidism Kidney stones Neuropathy Obesity (BMI 30-39.9) Osteoarthritis Post-menopausal Pronation deformity of left foot Rheumatoid arthritis Thyroid disease Type II diabetes mellitus Vitamin D deficiency Home Medications hydroxychloroquine 200 mg tablet 200 mg PO BID Arthritis 02/19/13 [History Last Taken 06/06/21] leflunomide 20 mg tablet 20 mg PO DAILY R.A. 02/19/13 [History Last Taken 06/06/21] cholecalciferol (vitamin D3) 50 mcg (2,000 unit) tablet 2,000 unit PO DAILY SUPPLEMENT 01/22/17 [History Last Taken 06/06/21] loratadine-pseudoephedrine ER 10 mg-240 mg tablet,extended [id number] (Claritin-D 24 Hour) 1 tab PO QAM PRN Sinus Symptoms 01/22/17 [History Last Taken 06/05/21] levothyroxine 150 mcg tablet 150 mcg PO DAILY THYROID 06/06/21 [History Last Taken 06/06/21] ipratropium bromide 42 mcg (0.06 %) nasal spray 2 spray NASAL TID Check with primary doctor 30 days #15 mL 07/17/21 [Rx Last Taken Unknown] metoprolol tartrate 50 mg tablet 25 mg PO DAILY BP 08/17/21 [History Last Taken Unknown] aspirin 81 mg chewable tablet 81 mg PO BID DVT prevention 09/20/21 [History Last Taken Unknown] polysaccharide iron complex 150 mg iron capsule (Ferrex) 150 mg PO DAILY supplement 09/20/21 [History Last Taken Unknown] tramadol 50 mg tablet 50 mg PO Q6H PRN pain 3 days #12 tabs 09/20/21 [Rx Last Taken Unknown] Allergy/AdvReac Type Severity Reaction Status Date / Time amoxicillin trihydrate AdvReac Vomiting Verified 09/15/21 14:36 [From Augmentin] hydrocodone AdvReac Vomiting Verified 09/15/21 14:36 ANESTHESIA AdvReac Unknown Uncoded 09/15/21 14:36 Family History Mother Arthritis Cancer Sister Arthritis Diabetes Father Bleeding disorder Heart disease Hypertension Son Bleeding disorder Surgical History (Updated 09/21/21 @ 16:[address] Haydee Brady DO) H/O lumpectomy H/O spinal fusion H/O thyroidectomy History of bilateral knee replacement History of right hip hemiarthroplasty History of spinal fusion History of tonsillectomy and adenoidectomy Social History household members: spouse Smoking Status: Never smoker alcohol intake: current alcohol intake frequency: a few times a month substance use type: does not use ROS Constitutional Constitutional: Reports anorexia, change in weight, poor appetite and weight loss; Denies daytime sleepiness or difficulty sleeping Eyes Eyes: Denies blurry vision or change in vision ENT HEENT: Denies change in voice, dizziness, dysphagia, ear pain, hearing loss, nasal discharge, odynophagia, rhinorrhea, sinus pain or sore throat Cardiovascular Cardiovascular: Reports edema; Denies chest pain, claudication, cyanosis, diaphoresis, dizziness, dyspnea or leg ulcers Respiratory/Chest Respiratory/Chest: Denies chest congestion, chest tightness, cough or dyspnea Gastrointestinal Gastrointestinal: Reports anorexia, diarrhea and other Details: She has dark stool but has been on iron [facility]. She has been having loose stools but, she has lactose intolerance and has been getting Ensure and at the [facility] they were giving her Miralax without telling her. ; Denies abdominal pain, belching, bloating or melena Genitourinary Genitourinary: Denies burning urination or difficulty urinating Integumentary Integumentary: Reports dry skin; Denies jaundice or non-healing lesions Neurologic Neurologic: Denies abnormal speech, behavior changes, confusion, disequilibrium, focal weakness, frequent falls or radicular pain Psychiatric Psychiatric: Reports depression and other Details: She was diagnosed with depression following her admission to rehab in late May of this year and she was placed on an antidepressant which she maintains she is still taking BUT, there is not a antidepressant on the meds listed on the H&P and none on the DCV list from the hospital. ; Denies abnormal sleep pattern, auditory hallucinations or confusion Hematologic/Lymphatic Hematologic/Lymphatic: Denies easy bleeding or easy bruising Allergic/Immunologic Allergic/Immunologic: Reports rhinitis; Denies itchy eyes or asthma Vital Signs Vital Signs Vital Signs: 09/20/21 18:47 09/21/21 07:45 09/21/21 07:58 Temperature 97.6 F L 97.0 F L Temperature Source Oral Oral Pulse Rate 75 83 83 Respiratory Rate 16 16 Blood Pressure 115/62 121/55 H 121/55 H Blood Pressure Mean 79 77 Blood Pressure Source Monitor Monitor Blood Pressure Position Semi-Fowlers Semi-Fowlers Blood Pressure Location Left Arm Right Arm Pulse Ox 100 100 Oxygen Delivery Method Room Air Room Air Weight Weight: 217 lb 15.995 oz Body Mass Index (BMI) 31.2 Physical Exam Const alert, oriented x3 and no apparent distress Constitutional Narrative: Obvious wt loss since her last admission to rehab....her clothes are hanging on her. General Appearance: cooperative and well kempt HEENT normocephalic and head/scalp atraumatic HEENT Narrative: MM are a little dry. No oral pharyngeal lesions. Eyes PERRL, EOMs intact bilaterally, conjunctivae normal, no scleral icterus and normal visual palm by confrontation Neck no lymphadenopathy, supple, No nodes and no carotid bruits Resp normal respiratory effort, normal air movement, no retractions, no use of accessory muscles and clear to auscultation bilaterally Effort and Inspection: able to speak in complete sentences Cardio regular rate, regular rhythm, S1 normal heart sound, S2 normal heart sound, no murmurs, no rub and no gallops Cardio Narrative: No ectopy GI normal to inspection, nondistended, normoactive bowel sounds, soft to palpation and non-tender GI Narrative: No guarding with palpation no CVA tenderness Extremity no calf tenderness Extremity Narrative: Some ankle edema which is mild. She wears an AFO on the Left ankle. Skin General Skin Exam: no breakdown Rashes: no rashes Neuro oriented x3, CN's II-XII intact bilaterally and moves all extremities Psych mental status grossly normal, thought process normal, cooperative, affect normal, speech normal, activity/motor behavior normal, denies hallucinations, denies homicidal ideation and denies suicidal ideation Appearance: grossly normal Attitude: calm Activity / Motor Behavior: appropriate eye contact Speech: normal speech Results Lab / Micro Data Result Diagrams: 09/21/21 10:05 09/21/21 10:05 Assessment & Plan Assessment/Plan (1) Physical debility: (2) Recurrent dislocation of right hip: (3) History of revision of total replacement of right hip joint: (4) Iatrogenic hyperthyroidism: PLAN: The levothyroxine dose was decreased to 100 mcg daily. Will need to repeat TSH and T4 in 4 to 6 weeks. (5) Vitamin D deficiency: PLAN: No vitamin D level has been checked since 2019. Will order a vitamin D level now. (6) Depression: PLAN: Current med list does not include an antidepressant. We will contact the [facility] to get a med list to see what she was taking prior to admission to [facility]. (7) Chronic renal failure, stage 3a: PLAN: Stable. (8) Hypophosphatemia: PLAN: Supplementation ordered and will recheck in 5 to 7 days. PLAN: Plan PLAN PT for gait stability OT for ADL's ST for evaluation - she had confusion the last time she was in rehab and I suspect it was due to the combined effects of pain medication and depression. She has improved significantly. Will have ST assess cognitive function and compare to when she was here in May/June. Analgesics as needed Bowel protocol Fall precautions Assess for Anxiety/Depression GI prophylaxis-not indicated at this time. Patient denies history of peptic ulcer disease and has no epigastric pain, nausea or vomiting. She does tell me her stool is dark but this is more likely than not secondary to an iron supplement she was taking at the [facility]. We will check a Hemoccult stool. She is not anemic. DVT prophylaxis with ASA 81 mg p.o. twice daily x4 weeks from the date of surgery and then decrease to 1 aspirin daily. Follow up with Dr. Erazo and PCP following DC from Rehab AM lab including CMP, CBC, Mag and Phos - personally reviewed. Will also get a hemoccult stool, Vitamin D level and a HGBA1C.....not currently on any hypoglycemic agents but, has DM II. Has had COVID vaccines and 2 boosters. Unit Exclusion This patient is an acute care inpatient being housed in the excluded unit because of capacity issues related to the disaster or emergency.: Yes Charges/Coding Visit Charges Inpatient E&M: 81721 Init Hosp L3
--- NOTE | 2021-09-21 09:48 | PCM.RU.PYE ---
Admission Information Primary Diagnosis:: Debility due to recurrent R hip dislocation and recent conversion to a R THR Status Changes from Prescreening?: No changes Identified Actual Problem List:: Skin Intergrity, Pain, ALteration in Cmfrt, Cognitve Impr/Memory Loss, Depression, Alteration in Sleep, Mobility Impaired, Self Care Deficit and Alteration-Leisure Activ. Potential Problem List:: DVT, Bleeding, Infection, UTI, Aspiration, Falls, Skin Integrity and Depression Risk of Complications DVT: DIANNA Aguirre and - (ASA 81 mg twice daily per orthopedics) Bleeding: Monitor Lab Values, Nursing to Teach Precautions for anti-coagulation therapy., Wound, if applicable, to be assessed every shift. and Stroke patients assessed for lethargy or change in status. Infection: Clinical Staff to Monitor for S/S of infection: and S/S of infection include fever, redness, warmth, etc. Urinary Tract Infection: Monitor for frequency, burning, discomfort, or incontinence. and Nursing will obtain urine sample for urinalysis and C&S when ordered. Aspiration: Clinical staff will monitor for coughing, drooling, congestion., Speech will evaluate swallowing and dsyphasia. and Nursing will monitor patient swallowing during meals. Falls: Patient will be evaluated for Fall Precautions and Patient will be placed on Fall Precautions as indicated per protocol. Skin Breakdown: Nursing will assess skin daily using assessment tool. and Nursing will place on Skin Breakdown Precautions as indicated. Pain: Clinical staff will assess patient's pain level per protocol., Medications will be given, if needed, and the pain level reassessed. and Other methods: Massage, distraction, decrease stimulus, etc. used PRN. Plan of Care Patient requires physician specializing in physical medicine and rehab oversight to provide close medical supervision of rehab issues including: Pain Management, Sleep Problems, Bowel and Bladder, Medical and co-morbidity Management, DVT prophylaxis, Rehabilitation Leadership and Coordination of treatment team Patient needs Physical Therapy: For a minimum of 1 hour and At least 5 out of 7 days Patient needs Physical Therapy to improve:: Mobility, Strengthening, Transfers, Stretching, ROM, Endurance, Stairs, Gait and Balance Patient needs Occupational Therapy: For a minimum of 1 hour and At least 5 out of 7 days Patient needs Occupational Therapy to improve ADL's incl.: Eating, Grooming, Bathing, Dressing, Toileting, Toilet transfers, Community Reintegration, Higher functioning activities, Household tasks, Adaptive Equipment, Splinting and Other activities as determined Patient requires speech therapy: For a minimum of 1 hour and At least 5 out of 7 days Patient requires speech therapy for: Swallowing, Cognition, Language Skills and Compensatory Strategies Patient requires 24/7 Rehabilitation Nursing for: Pain Issues, Identifying and preventing risk factors, Monitoring and reporting current medical conditions, Assisting with ambulation, transfer, and all ADL's, Teaching patients about disease process and medications, Family teaching, Providing safe environment, Bowel and Bladder Issues, Skin integrity and Medication Management Patient needs District Representative/ Case Management for: Discharge Planning, Arranging Home Equipment or Services and Family Interventions Patient needs Dietary and Nutrition Services for: Adequate Nutrition, Nutritional Supplements and Nutritional Education Goals Patient will remain: free from falls and or injury at time of discharge. Patient will perform bed mobility at: MOD I level of assist. Patient will complete transfers from bed to chair at: MOD I level of assist. Patient will ambulate: 100 feet, with LRD and - (350 feet with least restrictive device at mod I) Patient will complete upper body dressing at: MOD I level of assist. Patient will complete lower body dressing at: - (Supervision/mod I) Patient will complete toileting at: - (Supervision/mod I) Patient will perform bathing at: - (Will perform all shower ADLs at supervision) Patient will complete grooming at: MOD I level of assist. Patient will complete home management skills at: MOD I level of assist. Patient will achieve: - (1 curb step) Patient will have pain level of: of 3 or less Patient's skin will: remain intact Patient will receive: adequate nutrition. Discharge Planning Pt Prognosis for Sig. Practical Improv. w/in Reasonable Time: Good Estimated Length of stay (days): 14 Anticipated D/C Destination: Home (Not sure this is the family plan. ? why she has been home only 4 days since the end of May. She was in a mental health facility for a period of time. ) Was Preadmission Assessment Accurate?: Yes
[2021-09-21 10:15] LABS: Absolute Lymphocyte Count 0.92 X10^3/uL (0.83-4.51); Absolute Neutrophil Count 4.9 X10^3/uL (2.0-7.7); Basophil# 0.04 X10^3/uL; Basophil% 0.6 % (0-1); Eosinophil# 0.01 X10^3/uL; Eosinophils% 0.2 % (0-5); Hematocrit 38.7 % (37-47); Lymphocyte # 0.92 X10^3/ul (0.83-4.51); Lymphocyte % 13.9 % (19-41); Mean Platelet Vol. 11.8 fl (6.2-12.0); Monocyte# 0.69 X10^3/uL; Monocyte% 10.4 % (0-10); NRBC Flagged by Analyzer 0 % (0-5); Neutrophil # 4.91 X10^3/uL (2.7-7.7); Neutrophil % 74.1 % (47-70); Platelet Count 195 K/mm3 (150-450); RBC Distribution Width CV 14.9 % (11.6-14.6); Red Blood Count 4.45 M/mm3 (4.2-5.4); White Blood Count 6.6 K/mm3 (4.4-11.0)
[2021-09-21 10:51] LABS: ALB/GLOB Ratio 0.8 RATIO (0.9-2.4); AST(SGOT) 25 U/L (15-37); Alanine Aminotransfer ALT/SGPT 9 U/L (13-56); Albumin, Serum 2.8 g/dL (3.2-5.0); Alkaline Phosphatase 79 U/L (45-117); Anion Gap 7 (5-15); BUN 24 mg/dL (7-18); BUN/Creat Ratio 21.2 RATIO (10-20); Calcium,Total 8.6 mg/dL (8.5-10.1); Chloride 108 mmol/L (98-107); Creatinine, Serum 1.13 mg/dL (0.55-1.02); EST Glomerular Filtration Rate 50 mL/min (>60); Est Glom Filt Rate - Afr Amer 61 mL/min (>60); Estimated Creatinine Clearance 48.66 ml/min; Globulin 3.4 g/dL (2.2-4.2); Glucose 76 mg/dL (74-106); Magnesium 1.7 mg/dL (1.6-2.6); Phosphorus 1.9 mg/dL (2.5-4.9); Potassium 3.8 mmol/L (3.5-5.1); Protein, Total 6.2 g/dL (6.4-8.2); Sodium Level 139 mmol/L (136-145)
--- NOTE | 2021-09-21 14:16 | CHAPLAIN ---
Type of Pastoral Visit _x__ Initial Visit ___ Follow-up Visit ___ On-call Visit ___ General Patient Visit ___ Spiritual Assessment ___ Family Conference ___ Bereavement ___ Rapid Response ___ Code Blue ___ Other (describe below) Pastoral Care Referral From _x__ Patient ___ Family ___ Nurse ___ Physician ___ Emergency Medical Dispatcher ___ Press Operator Automatic ___ Other (describe below) Sacrament/Intervention _x__ Active listening ___ Anointing ___ Voodoo ___ Bereavement ___ Communion ___ Kristy exploration ___ _x__ Life review _x__ Prayer ___ Reconciliation ___ Sacrament of Sick _x__ Supportive presence ___ Wedding ___ Other (describe below) Pastoral Comments this patient has been seen in previous admissions; pt remembers this health insurance agent; pt gives updates on her health issues and reason for admission; pt also reveals her other hospitalization ordered by her son; pt says that experience was disturbing due to seeing how people treat one another; pt feels like she is in a better situation now and is hopeful about this recovery; pt is talkative and welcoming of presence and prayer
--- NOTE | 2021-09-21 16:44 | CASEMGMT ---
Social Work Met with patient to complete initial assessment. Pt known to this worker from previous stay. No changes to previous PLOF or home set up. Although, SW noted pt not as cognitively intact as prior visits. Pt unable to recall timeline and events of medical stays/history. Pt did report to having a psych stay prior to surgery but could not recall where at. Pt explained her and son put her there for cognition but was only depressed and reported it was successful in improving her depression. Pt reports to being fine now, just upsetting why my son would do that to me. SW began exploring feelings and scenario further when pt was schedule for a therapy session. SW offered ongoing supportive visits throughout stay and assistance with DC planning. Pt appreciative and denied any in-room activity needs at this time, offered by ISAÍAS. SW to continue to follow. DELROY DiazW
[2021-09-21 17:35] LABS: Hemoglobin A1c 5.6 % (3.8-5.6)
[2021-09-21] MEDS: Na Biphos/Potassium Phosphate PACKET 1 PACKET PO (20:44)
[2021-09-22] MEDS: Na Biphos/Potassium Phosphate PACKET 1 PACKET PO ×2 (05:10→15:17)
[2021-09-22] MEDS: Levothyroxine 150 MCG Tablet PO (05:10)
[2021-09-22] MEDS: Acetaminophen 500 MG Tablet 1000 MG PO ×3 (05:10→21:08)
[2021-09-22] MEDS: Menthol/Lanolin/Calamine/Znox 113 GM Tube 1 APPLIC TOPICAL ×2 (05:10→22:19)
[2021-09-22] MEDS: traMADol 50 MG Tablet PO ×2 (05:15→21:11)
[2021-09-22] MEDS: Ipratropium Bromide 0.06% NASAL SPRAY 2 SPRAY NASAL (05:29)
[2021-09-22 07:53] VITALS: PULSE 77
[2021-09-22] MEDS: Metoprolol Tartrate 25 MG Tablet PO (07:53)
[2021-09-22] MEDS: Hydroxychloroquine 200 MG Tablet PO ×2 (07:53→21:09)
[2021-09-22] MEDS: Leflunomide 10 MG TABLET 20 MG PO (07:53)
[2021-09-22] MEDS: Aspirin 81 MG TAB.CHEW PO ×2 (07:53→16:04)
[2021-09-22] MEDS: Cholecalciferol (VIT D3) 25 MCG TABLET (1,000 UNITS) 50 MCG PO (07:53)
[2021-09-22] MEDS: Iron Polysaccharide Complex 150 MG CAPSULE PO (07:54)
[2021-09-22 08:02] VITALS: BP 124/64; PULSE 80; RESP 18; TEMP 36.8; O2SAT 96
[2021-09-22 19:04] VITALS: BP 148/80; PULSE 95; RESP 18; TEMP 36.3; O2SAT 96
--- NOTE | 2021-09-22 22:15 | NURSING ---
Pt refusing sodium, potassium, phosphorus packet stating this is giving her diarrhea. Pt states it is hard for her to get to the restroom fast if she is having diarrhea.
[2021-09-23] MEDS: traMADol 50 MG Tablet PO ×2 (04:38→21:35)
[2021-09-23] MEDS: Levothyroxine 150 MCG Tablet PO (04:38)
[2021-09-23] MEDS: Acetaminophen 500 MG Tablet 1000 MG PO ×3 (04:38→21:35)
[2021-09-23] MEDS: Menthol/Lanolin/Calamine/Znox 113 GM Tube 1 APPLIC TOPICAL ×2 (04:39→21:36)
[2021-09-23 07:30] VITALS: BP 139/82; PULSE 77; RESP 16; TEMP 36.4; O2SAT 99
[2021-09-23] MEDS: Aspirin 81 MG TAB.CHEW PO ×2 (09:34→16:58)
[2021-09-23] MEDS: Leflunomide 10 MG TABLET 20 MG PO (09:34)
[2021-09-23] MEDS: Iron Polysaccharide Complex 150 MG CAPSULE PO (09:34)
[2021-09-23 09:35] VITALS: PULSE 72
[2021-09-23] MEDS: Metoprolol Tartrate 25 MG Tablet PO (09:35)
[2021-09-23] MEDS: Cholecalciferol (VIT D3) 25 MCG TABLET (1,000 UNITS) 50 MCG PO (09:35)
[2021-09-23] MEDS: Hydroxychloroquine 200 MG Tablet PO ×2 (09:37→21:35)
--- NOTE | 2021-09-23 09:46 | NURSING ---
Spoke to patient regarding her refusal of the neutra packet and she reported she is not taking it. Patient believes her loose stool is caused from this but patient did not have loose stool this AM per nurse report. 1:1 provided and ineffective.
--- NOTE | 2021-09-23 13:07 | PCM.PN.BLA ---
Progress Note Afebrile VSS Maintaining appropriate oxygen saturation on RA Oral intake is adequate Discussed with nursing - She would not sign the release of information form so we could obtain a med list and notes from the mental health facility in [facility] where she was admitted in the past notes. She wanted to ask her if it was OK. Her wants to consult a career and guidance counselor. There is something strange about hx surrounding a diagnosis of mental illness in the past. Family and patient deny but, she clearly has issues. She is paranoid and confused at times. Memory is spotty. She told me that the hx of being in a mental health facility follows you for the rest of your life. She tells me that she was only treated for depression recently. She is refusing the Neutra phos ordered for low phosphorous because now she states it is causing diarrhea. She had fecal incontinence this AM. Reviewed the PT/OT/ST notes Medication list reviewed. She continues to c/o diarrhea but, is not saving stool for the nurses to document? If she is having diarrhea I am not sure why? She is on a lactose free diet and the Ensure that she thought was causing the diarrhea was discontinued. She denies chest pain, shortness of breath, cough, sore throat, palpitations, lightheadedness, dysuria, N/V/abdominal pain and calf tenderness. Physical Exam Const alert and no apparent distress Constitutional Narrative: Having trouble remembering the date. Can tell me the month. We have not heard from Mine or her Bill whether she will sign the release to [facility]. General Appearance: other HEENT HEENT Narrative: Mucous membranes are dry and she was told once again increase her fluid intake. Resp Resp Narrative: Clear to auscultation Cardio Cardio Narrative: Regular rate and rhythm with no ectopy. No gallops GI GI Narrative: Bowel sounds are not hyperactive. The abdomen is soft and there is no guarding with palpation. There is no distention. Extremity Extremity Narrative: Mild ankle edema secondary to ankle/foot deformities she has had since . she has had multiple surgeries in the past and wears an AFO on the left foot. Skin Skin Narrative: No rashes and no breakdown Psych Psych Narrative: Something is odd about Mine. She is paranoid and emotionally labile. At the last admission to rehab she was very agitated about having someone outside the door when she was in the restroom to make sure she was safe and did not need assist. Memory is sketchy. Family and pt are very secretive about hx of mental illness which appears on the H&P. Assessment & Plan Assessment/Plan (1) Physical debility: PLAN: Continue therapy. will need to discuss with Mine and her family what the plan is for DC......will she be going home? I know her has cancer and she tells me that their son no longer talks to them and I am not sure DC home is possible. (2) Recurrent dislocation of right hip: (3) History of revision of total replacement of right hip joint: (4) Iatrogenic hyperthyroidism: PLAN: The levothyroxine dose was decreased to 100 mcg daily. Will need to repeat TSH and T4 in 4 to 6 weeks. (5) Depression: PLAN: Current med list does not include an antidepressant. We will contact the [facility] to get a med list to see what she was taking prior to admission to [facility]. (6) Chronic renal failure, stage 3a: PLAN: Stable. (7) Hypophosphatemia: PLAN: Supplementation ordered but, pt is refusing saying it is giving her diarrhea. Will discuss with her whether she will agree to IV supplementation. PLAN: Plan We finally got a med list from the [facility] and she was taking 60 mg of Cymbalta daily.......some of the odd behavior we are seeing could be due to the abrupt withdrawal of this medication since she was admitted to the hospital. She was also taking 175 mcg of Levothyroid at the [facility] and this was decreased to 150mg daily due to low TSH and an elevated T4. Visit Charges Inpatient E&M: 74020 Subs Hosp L2
[2021-09-23 19:03] VITALS: BP 108/59; PULSE 82; RESP 17; TEMP 36.6; O2SAT 99
[2021-09-24] MEDS: Levothyroxine 150 MCG Tablet PO (06:28)
[2021-09-24] MEDS: Acetaminophen 500 MG Tablet 1000 MG PO ×3 (06:28→20:11)
[2021-09-24] MEDS: Menthol/Lanolin/Calamine/Znox 113 GM Tube 1 APPLIC TOPICAL ×2 (06:28→20:12)
[2021-09-24] MEDS: traMADol 50 MG Tablet PO ×2 (06:33→20:14)
[2021-09-24 07:24] VITALS: BP 117/68; PULSE 80; RESP 20; TEMP 36.4; O2SAT 97
[2021-09-24 08:31] VITALS: PULSE 77
[2021-09-24] MEDS: DULoxetine Hcl 60 MG Capsule PO (08:31)
[2021-09-24] MEDS: Aspirin 81 MG TAB.CHEW PO ×2 (08:31→16:53)
[2021-09-24] MEDS: Leflunomide 10 MG TABLET 20 MG PO (08:31)
[2021-09-24] MEDS: Hydroxychloroquine 200 MG Tablet PO ×2 (08:31→20:12)
[2021-09-24] MEDS: Metoprolol Tartrate 25 MG Tablet PO (08:31)
[2021-09-24] MEDS: Iron Polysaccharide Complex 150 MG CAPSULE PO (08:31)
[2021-09-24] MEDS: Cholecalciferol (VIT D3) 25 MCG TABLET (1,000 UNITS) 50 MCG PO (08:32)
[2021-09-24 19:32] VITALS: BP 127/86; PULSE 90; RESP 16; TEMP 36.7; O2SAT 98
[2021-09-25] MEDS: Acetaminophen 500 MG Tablet 1000 MG PO ×3 (05:02→21:11)
[2021-09-25] MEDS: Levothyroxine 150 MCG Tablet PO (05:03)
[2021-09-25] MEDS: Menthol/Lanolin/Calamine/Znox 113 GM Tube 1 APPLIC TOPICAL ×2 (05:03→20:28)
[2021-09-25] MEDS: traMADol 50 MG Tablet PO ×2 (05:03→20:33)
[2021-09-25 07:24] VITALS: BP 141/79; PULSE 85; RESP 18; TEMP 36.4; O2SAT 99
[2021-09-25 08:30] VITALS: PULSE 80
[2021-09-25] MEDS: Metoprolol Tartrate 25 MG Tablet PO (08:30)
[2021-09-25] MEDS: Iron Polysaccharide Complex 150 MG CAPSULE PO (08:30)
[2021-09-25] MEDS: Leflunomide 10 MG TABLET 20 MG PO (08:31)
[2021-09-25] MEDS: Cholecalciferol (VIT D3) 25 MCG TABLET (1,000 UNITS) 50 MCG PO (08:31)
[2021-09-25] MEDS: Hydroxychloroquine 200 MG Tablet PO ×2 (08:31→20:29)
[2021-09-25] MEDS: Aspirin 81 MG TAB.CHEW PO ×2 (08:31→17:21)
[2021-09-25] MEDS: DULoxetine Hcl 60 MG Capsule PO (08:33)
--- NOTE | 2021-09-25 11:58 | PN_ITS ---
Subjective Subjective Lora was seen on team rounds today. No family was able to participate. We have still not been able to get her permission to request the records from the the [facility] health facility she was recently a pt of. Her was going to talk with a manual arts therapist. Afebrile VSS Maintaining appropriate oxygen saturation on RA Oral intake is adequate Discussed with nursing - Reviewed the PT/OT/ST notes Medication list reviewed. Mine's plan is to go home at [place] from rehab. She tells us that her , even though he is a [place] pt, is functional and he will be able to help her with donning and doffing her shoes. He cooks and does laundry and she does not see a problem with him helping her. May need to approach Bill about his feelings on the matter. She continues to c/o frequent loose stools during the day and maybe one at night. She is not on any stool softeners. She was hyperthyroid at admission. States she did not have diarrhea while at [facility]. Not on any recent antibiotics. Denies any hx of UC or Crohn's. Also denies hx of IBS. Denies CP, SOB, abd pain, N/V, dysuria, cephalgia. Tells me she is sleeping well. Objective Data Objective Data Vital Signs: Vital Signs Temp Pulse Resp BP Pulse Ox O2 Del Method 97.6 F L 80 18 141/79 H 99 Room Air 09/25/21 07:24 09/25/21 08:30 09/25/21 07:24 09/25/21 07:24 09/25/21 07:24 09/25/21 07:24 Oxygen Delivery Method Room Air Weight: 215 lb 9.793 oz Body Mass Index (BMI) 31.2 Intake & Output: Intake and Output for Last 24 Hours 09/23/21 09/24/21 09/25/21 23:59 23:59 23:59 Intake Total 1020 / 1020 900 / 900 240 / 240 Output Total 1100 / 1100 650 / 650 Balance -80 / -80 250 / 250 240 / 240 Lab / Micro Data Result Diagrams: 09/21/21 10:05 09/21/21 10:05 Micro: Microbiology 09/21/21 06:50 Stool Stool Occult Blood (DONNELL) - Final Physical Exam Const alert, oriented x3 and no apparent distress General Appearance: cooperative Resp normal respiratory effort, normal air movement and clear to auscultation bilaterally GI normal to inspection, nondistended, normoactive bowel sounds, soft to palpation and non-tender Extremity General Extremity: edema bilateral (mild); Negative for clubbing or cyanosis Skin General Skin Exam: no breakdown Rashes: no rashes Assessment & Plan Assessment/Plan (1) Physical debility: PLAN: Continue PT/OT. The plan is for DC home with [facility] at [place]. (2) History of revision of total replacement of right hip joint: PLAN: Will follow up with post [place]. Nursing will call today and find out if we should remove the humrea or if she will be able to follow up with Dr. Erazo in the office next week. Mine is leary of going to Dr. Erazo's office because the last time she was there she dislocated the hip at the office. (3) Iatrogenic hyperthyroidism: PLAN: Restart 150 mcg daily in 2-3 days and will need TSH and T4 in 4-6 weeks. (4) Diarrhea: PLAN: Suspect this may be due to a combination of iatrogenic hyperthyroidism, ac tasha withdrawal of Cymbalta (has been restarted since we were able to obtain the med list from [facility] and find out what antidepressant she has been taking) and maybe some IBS. Will hold the Levothyroid for the next 2-3 days and then restart at the lower dose. Order Imodium 2 mg every 4 hour as needed for diarrhea. (5) Depression: Charges/Coding Visit Charges Inpatient E&M: 10248 Subs Hosp L2
--- NOTE | 2021-09-25 12:42 | CASEMGMT ---
Social Work IDT met with patient for Team meeting. Pt declined for to be called r/t poor hearing via phone. Offered for to ask questions during visits. Discussed patient's progress in PT/OT/ST/SN. Explained Medicare approved 12 days with DC 10/01. The goal is for pt to return home with . However, broached topic of SNF since has limited vision, cannot drive, and has own medical conditions thus cannot care for pt. Pt stated can assist with IADLs, i.e. laundry, cooking, mowing, putting on pts shoes; just cannot drive, per pt. Pt would like to return home. ST expressed concerns with attention, memory, and higher functional cognitive tasks. Dr. Brady reports to getting records from [facility] from pts previous stay but pt was on Cymbalta for mood. pt has been restarted on that medication. Dr. Brady revisited pt signing release to get medical records to get from [facility]. Pt still cautious about signing form. will continue to revisit. SW to continue to follow for discharge planning. Birgit Howe, [employer] SUPER[employer]ENDENT
[2021-09-25 19:12] VITALS: BP 124/79; PULSE 79; RESP 18; TEMP 36.7; O2SAT 99
[2021-09-25 20:10] VITALS: PULSE 85; RESP 16; O2SAT 97
[2021-09-26] MEDS: Acetaminophen 500 MG Tablet 1000 MG PO ×3 (06:38→21:29)
[2021-09-26] MEDS: Menthol/Lanolin/Calamine/Znox 113 GM Tube 1 APPLIC TOPICAL ×3 (06:39→20:46)
[2021-09-26] MEDS: traMADol 50 MG Tablet PO ×2 (06:53→20:35)
[2021-09-26 07:30] VITALS: BP 125/65; PULSE 77; RESP 16; TEMP 36.5; O2SAT 96
[2021-09-26 07:43] VITALS: BP 125/65; PULSE 77
[2021-09-26] MEDS: Aspirin 81 MG TAB.CHEW PO ×2 (07:43→17:04)
[2021-09-26] MEDS: DULoxetine Hcl 60 MG Capsule PO (07:43)
[2021-09-26] MEDS: Metoprolol Tartrate 25 MG Tablet PO (07:43)
[2021-09-26] MEDS: Hydroxychloroquine 200 MG Tablet PO ×2 (07:43→20:36)
[2021-09-26] MEDS: Leflunomide 10 MG TABLET 20 MG PO (07:44)
[2021-09-26] MEDS: Iron Polysaccharide Complex 150 MG CAPSULE PO (07:44)
[2021-09-26] MEDS: Cholecalciferol (VIT D3) 25 MCG TABLET (1,000 UNITS) 50 MCG PO (07:44)
--- NOTE | 2021-09-26 09:53 | PN_ITS ---
Progress Note Afebrile VSS Maintaining appropriate oxygen saturation on RA Oral intake is good No bowel movement last night or this morning so far. She has not taken any Imodium. Discussed with nursing - no problems that need addressed..... no complaints this AM. She did sign the release of records form yesterday afternoon and we are awaiting the records from the [facility] facility to determine what meds she was discharged on from there. Reviewed the PT/OT/ST notes Medication list reviewed. Has not had to take Imodium since it was ordered yesterday. Diarrhea has resolved. States pain is adequately controlled. Sleeping well at night and no c/o N/V/Abd pain. No CP, SOB, palpitations, lightheadedness or calf pain. Physical Exam Const alert, oriented x3 and no apparent distress Constitutional Narrative: calm and having a good conversation with me. Resp normal respiratory effort, normal air movement and clear to auscultation bilaterally Effort and Inspection: able to speak in complete sentences Cardio regular rate, regular rhythm, no rub and no gallops GI normal to inspection, nondistended, normoactive bowel sounds, soft to palpation and non-tender GI Narrative: no guarding with palpation and no masses appreciated Extremity no calf tenderness Extremity Narrative: AFO in place on the L foot/ankle. Jerry deformity of the R ankle. Skin Rashes: no rashes Wound Narrative: Wound is healing and there is no erythema and no DC from the incision. Dr. Erazo would like to see her to take the humera out next Saturday in the office. Assessment & Plan Assessment/Plan (1) Recurrent dislocation, right hip: (2) History of revision of total replacement of right hip joint: PLAN: Continue therapy. Plan is for DC home from rehab with [facility]. (3) Iatrogenic hyperthyroidism: (4) Diarrhea: PLAN: More likely than not due to iatrogenic hyperthyroidism. Dose was decreased but, still with diarrhea. Will hold the Levothyroxine for a few days and restart on Saturday. Will need to have a follow up TSH and T4 in 4-6 weeks on the decreased dose of 150 mcg daily. (5) Hypophosphatemia: PLAN: Has been supplemented. Will recheck level on Saturday. (6) Chronic renal failure, stage 3a: PLAN: Stable (7) Depression: PLAN: Restarted on Cymbalta
--- NOTE | 2021-09-26 16:05 | CHAPLAIN ---
Type of Pastoral Visit ___ Initial Visit ___ Follow-up Visit ___ On-call Visit ___ General Patient Visit ___ Spiritual Assessment ___ Family Conference ___ Bereavement ___ Rapid Response ___ Code Blue ___ Other (describe below) Pastoral Care Referral From ___ Patient ___ Family ___ Nurse ___ Physician ___ Head Machine Feeder ___ Engine Boss ___ Other (describe below) Sacrament/Intervention ___ Active listening ___ Anointing ___ Mormon ___ Bereavement ___ Communion ___ Kristy exploration ___ ___ Life review ___ Prayer ___ Reconciliation ___ Sacrament of Sick ___ Supportive presence ___ Wedding ___ Other (describe below) Pastoral Comments brief moments to encourage the patient who is doing her walking in the hallway with assistance
[2021-09-26 19:17] VITALS: BP 138/84; PULSE 74; RESP 16; TEMP 36.5; O2SAT 99
[2021-09-26 22:00] VITALS: PULSE 70; RESP 16; O2SAT 99
[2021-09-27] MEDS: Acetaminophen 500 MG Tablet 1000 MG PO ×3 (04:22→21:31)
[2021-09-27] MEDS: Menthol/Lanolin/Calamine/Znox 113 GM Tube 1 APPLIC TOPICAL (04:23)
[2021-09-27 07:26] VITALS: BP 120/67; PULSE 80; RESP 16; TEMP 36.5; O2SAT 100
[2021-09-27 07:54] VITALS: BP 120/67; PULSE 80
[2021-09-27] MEDS: Metoprolol Tartrate 25 MG Tablet PO (07:54)
[2021-09-27] MEDS: Hydroxychloroquine 200 MG Tablet PO ×2 (07:54→21:32)
[2021-09-27] MEDS: Cholecalciferol (VIT D3) 25 MCG TABLET (1,000 UNITS) 50 MCG PO (07:54)
[2021-09-27] MEDS: Iron Polysaccharide Complex 150 MG CAPSULE PO (07:57)
[2021-09-27] MEDS: DULoxetine Hcl 60 MG Capsule PO (07:57)
[2021-09-27] MEDS: Aspirin 81 MG TAB.CHEW PO ×2 (07:57→17:17)
[2021-09-27] MEDS: Leflunomide 10 MG TABLET 20 MG PO (07:57)
[2021-09-27] MEDS: traMADol 50 MG Tablet PO ×2 (07:57→21:35)
[2021-09-27 22:00] VITALS: BP 126/73; PULSE 76; RESP 16; TEMP 36.8; O2SAT 99
[2021-09-28] MEDS: traMADol 50 MG Tablet PO ×2 (06:44→20:01)
[2021-09-28] MEDS: Menthol/Lanolin/Calamine/Znox 113 GM Tube 1 APPLIC TOPICAL ×2 (06:45→20:27)
[2021-09-28] MEDS: Acetaminophen 500 MG Tablet 1000 MG PO ×3 (06:45→20:00)
[2021-09-28 07:14] VITALS: BP 132/79; PULSE 78; RESP 16; TEMP 36.8; O2SAT 98
[2021-09-28 07:57] VITALS: BP 132/79; PULSE 78
[2021-09-28] MEDS: Iron Polysaccharide Complex 150 MG CAPSULE PO (07:57)
[2021-09-28] MEDS: Hydroxychloroquine 200 MG Tablet PO ×2 (07:57→20:01)
[2021-09-28] MEDS: Metoprolol Tartrate 25 MG Tablet PO (07:57)
[2021-09-28] MEDS: Leflunomide 10 MG TABLET 20 MG PO (07:58)
[2021-09-28] MEDS: DULoxetine Hcl 60 MG Capsule PO (07:58)
[2021-09-28] MEDS: Aspirin 81 MG TAB.CHEW PO ×2 (07:58→16:30)
[2021-09-28] MEDS: Cholecalciferol (VIT D3) 25 MCG TABLET (1,000 UNITS) 50 MCG PO (07:58)
--- NOTE | 2021-09-28 09:40 | PCM.PN.BLA ---
Progress Note Afebrile VSS-blood pressures well controlled. Maintaining appropriate oxygen saturation on RA Oral intake is good Discussed with nursing - no problems that need addressed Reviewed the PT/OT/ST notes Medication list reviewed. Levothyroxine will resume tomorrow. Has been taking Tramadol 2 X's a day for pain control. Has not needed to take Imodium since it was ordered on Saturday. No complaints today. Denies calf pain, SOB, CP, lightheadedness. Physical Exam Const alert, oriented x3 and no apparent distress Resp normal respiratory effort, normal air movement, no retractions, no use of accessory muscles and clear to auscultation bilaterally Cardio regular rate, regular rhythm, no murmurs and no gallops GI normal to inspection, nondistended, normoactive bowel sounds, soft to palpation and non-tender GI Narrative: no guarding with palpation and no masses appreciated Extremity no calf tenderness and no pedal edema Extremity Narrative: When I watch her walk the R foot is inverted to the point that the outside of the shoe on the R foot is not in contact with the ground and the R medial malleolus is projected medial to the medial side of the foot. This causes the knee to Skin Skin Narrative: No rashes and no breakdown General Skin Exam: no breakdown Rashes: no rashes Neuro oriented x3, CN's II-XII intact bilaterally and moves all extremities Neuro Narrative: she repeats herself a lot from day to day telling me the same stories but, she also remembers things from a few days ago Assessment & Plan Assessment/Plan (1) Recurrent dislocation, right hip: PLAN: Continue therapy. Plan DC on Saturday to home. Will need [facility] because neither she nor her drives and she has had [facility] in the past. (2) History of revision of total replacement of right hip joint: PLAN: Healing well. Will follow up with Dr. Erazo Saturday for staple removal. (3) Iatrogenic hyperthyroidism: PLAN: Will restart the Levothyroxine tomorrow at the lower dose of 150 mcg daily and recheck TSH and a T4 in 4-6 weeks. (4) Diarrhea: PLAN: resolved (5) Hypophosphatemia: PLAN: recheck lab in the AM (6) Chronic renal failure, stage 3a: PLAN: stable (7) Depression: PLAN: Awaiting the records from the mental Health facility in [place] where she was a pt in the past few months. PLAN: Plan 1. Phos, HH, BMP in the AM and resume Levothyroxine in the AM. 2. Consult podiatry. Due to the mal-alignment of the R ankle and the overpronation of the R foot/ankle the knee is angulated in a valgus position and puts pressure on the hip.......which may be part of the problem with the frequent dislocations. Visit Charges Inpatient E&M: 69046 Subs Hosp L2
--- NOTE | 2021-09-28 16:28 | PCM.CONS.GEN ---
Assessment & Plan Assessment/Plan (1) History of revision of total replacement of right hip joint: (2) Recurrent dislocation, right hip: (3) Hypothyroidism: (4) Chronic renal failure, stage 3a: (5) Depression: (6) Posterior tibial tendinitis, right leg: (7) Posterior tibial tendinitis, left leg: (8) Acquired valgus deformity of right ankle: (9) Primary osteoarthritis, right ankle and foot: PLAN: Plan Patient seen and evaluated Patient demonstrates palpable pedal pulses bilaterally Left lower extremity: There is decreased arch height of the left foot with slight valgus deformity of the ankle secondary to posterior tibial tendon dysfunction, stage IIb. AFO to left lower extremity to assist in gait Right lower extremity: There is significant decreased arch height of the right foot with valgus deformity of the calcaneus and severe valgus deformity of the ankle secondary to posterior tibial tendon dysfunction, stage IV. Range of motion at the ankle is smooth, nonpainful, without crepitus. She achieves 10 degrees of dorsiflexion and 5 degrees of plantarflexion. Midfoot range of motion is rigid and nonpainful. Subtalar joint range of motion is rigid and nonpainful. Upon standing she is noted to be weightbearing to the medial aspect of the foot and region of the navicular bone with tibial valgum and internal rotation of the right hip. Secondary to deformity of the right lower extremity a limb length discrepancy is noted versus the left lower extremity. I discussed with her today her case and condition. She demonstrates posterior tibial tendon dysfunction (PTTD), stage IV to the right lower extremity and PTTD stage IIB to the left lower extremity. She is currently ambulating in an AFO for her left lower extremity and reports no problems. She denies being fitted for AFO for her right lower extremity and has continued to ambulate on her right lower extremity with slowly worsening condition. Foot deformity with compromised posterior tibial tendon integrity and subsequent failure has led to significant compensation of the ankle extending proximally to the knee creating a tibial valgum and internal rotation of her femur leading to subsequent/recurrent right hip dislocation. She has had multiple surgeries for the right hip and right knee. I discussed options of bracing her right leg with an AFO (Serene brace versus Alex brace) for support/stability. I also discussed the risk of developing an ulceration below the navicular bone, medial foot, and medial aspect of the ankle due to her severe deformity. She is understanding of this today. I discussed surgical intervention regarding her condition to the right lower extremity in which she would likely require a calcaneal osteotomy followed by a pantalar fusion of the right lower extremity. This procedure was discussed in detail. I discussed benefits versus risks and complications of this procedure with her today. I also discussed expected recovery time. I discussed that this may aid in some correction to her right lower extremity aiding in biomechanical realignment which may aid in reducing pressure to her right knee and right hip. I discussed that this is not guaranteed and may not result in correcting or resolving her knee or hip issues. She voices understanding of our discussion today. Patient states that she is worried about her ability to drive following such a procedure as she cares for her who is ill. I discussed that this may impact her ability to drive as the ankle will be fused and thus no motion will occur. She states that she hesitant to undergo such surgical intervention due to the impact it would have on caring for her , but will think about it and discuss with her . I answered all of her questions today to her satisfaction. I discussed following up at the foot and ankle Center [facility] upon her discharge where we can further discuss options and obtain radiographs of her right foot and ankle. She is agreeable to this and will follow-up upon her discharge. Please do not hesitate to call for any questions or concerns Jr. Prashanth RutherfordP.Nicole. Foot and ankle Center [facility] [phone] Note: [employer] speech recognition box sealing machine operator software was used to create portions of this document. Sound-alike and misspelled words, as well as other box sealing machine operator errors may be contained in the documentation. The problems addressed require a low medical decision making level which includes two or more minor problems, a stable chronic illness, or an acute uncomplicated illness or injury. The medical decision making level is low. There is noted low risk of morbidity after considering this treatment plan and diagnostic data. HPI Consult Data Date of Consult: 09/28/21 HPI Narrative Reason for Consultation: Deformity of the right ankle HPI Narrative: KULDEEP AGUIRRE, is a 71 F who presents to [facility] with recurrent dislocation of her right hip, history of revision of total replacement of her right hip and right knee surgery. She states that she has always had flat feet and was dispensed a brace for the left foot/ankle by orthopedics in the past. She states she has done well with this brace on her left ankle for the last several years. She denies having a brace for the right ankle/foot. She states over the last few years her foot has progressively flattened with the ankle rolling inward which is caused altered walking. She admits to up to 9 incidence of a dislocated right hip with surgical replacement of the hip as well as several knee surgeries of the right knee. She admitted to a recent fall while vacuuming. She denies tripping on any object but states that she just fell which resulted in a hip dislocation. This was treated by orthopedics. She admits to difficulty finding shoes that fit due to the deformity of her right foot/ankle. She was consulted to podiatry for opinion regarding bracing options versus surgical correction of the right foot/ankle. [facility] Medical History (Updated 09/28/21 @ 16:[address] Shankar Jackson, DPM) Allergic rhinitis Back pain due to injury Breast lump Chronic mental illness Chronic renal failure, stage 3a Depression Fall at home Fracture of hip, right, closed Goiter History of blood transfusion History of revision of total replacement of right hip joint History of uterine fibroid HTN (hypertension) Hypertension Hypothyroidism Instability of right hip joint Kidney stones Malnourished Neuropathy Obesity (BMI 30-39.9) Osteoarthritis Physical debility Post-menopausal Pronation deformity of left foot Recurrent dislocation of right hip Rheumatoid arthritis Thyroid disease Type II diabetes mellitus Vitamin D deficiency Home Medications hydroxychloroquine 200 mg tablet 200 mg PO BID Arthritis 02/19/13 [History Last Taken 06/06/21] leflunomide 20 mg tablet 20 mg PO DAILY R.A. 02/19/13 [History Last Taken 06/06/21] cholecalciferol (vitamin D3) 50 mcg (2,000 unit) tablet 2,000 unit PO DAILY SUPPLEMENT 01/22/17 [History Last Taken 06/06/21] loratadine-pseudoephedrine ER 10 mg-240 mg tablet,extended [id number] (Claritin-D 24 Hour) 1 tab PO QAM PRN Sinus Symptoms 01/22/17 [History Last Taken 06/05/21] levothyroxine 150 mcg tablet 150 mcg PO DAILY THYROID 06/06/21 [History Last Taken 06/06/21] ipratropium bromide 42 mcg (0.06 %) nasal spray 2 spray NASAL TID Check with primary doctor 30 days #15 mL 07/17/21 [Rx Last Taken Unknown] metoprolol tartrate 50 mg tablet 25 mg PO DAILY BP 08/17/21 [History Last Taken Unknown] aspirin 81 mg chewable tablet 81 mg PO BID DVT prevention 09/20/21 [History Last Taken Unknown] polysaccharide iron complex 150 mg iron capsule (Ferrex) 150 mg PO DAILY supplement 09/20/21 [History Last Taken Unknown] tramadol 50 mg tablet 50 mg PO Q6H PRN pain 3 days #12 tabs 09/20/21 [Rx Last Taken Unknown] Allergy/AdvReac Type Severity Reaction Status Date / Time amoxicillin trihydrate AdvReac Vomiting Verified 09/15/21 14:36 [From Augmentin] hydrocodone AdvReac Vomiting Verified 09/15/21 14:36 ANESTHESIA AdvReac Unknown Uncoded 09/15/21 14:36 Family History Mother Arthritis Cancer Sister Arthritis Diabetes Father Bleeding disorder Heart disease Hypertension Son Bleeding disorder Surgical History (Updated 09/28/21 @ 00:01 by Zenon Jesus) H/O lumpectomy H/O spinal fusion H/O thyroidectomy History of bilateral knee replacement History of right hip hemiarthroplasty History of spinal fusion History of tonsillectomy and adenoidectomy Social History household members: spouse Smoking Status: Never smoker alcohol intake: current alcohol intake frequency: a few times a month substance use type: does not use ROS Constitutional Constitutional: Denies body ache(s), chills, malaise or weakness Eyes Eyes: Denies burning, diplopia, dry eyes or eye pain ENT HEENT: Denies ear pain, nasal congestion, nasal discharge or sore throat Cardiovascular Cardiovascular: Denies chest pain, claudication or dyspnea at rest Respiratory/Chest Respiratory/Chest: Denies chest congestion, cough or wheezing Gastrointestinal Gastrointestinal: Denies constipation, diarrhea, dysphagia, nausea or vomiting Genitourinary Genitourinary: Denies burning urination, dysuria, urinary frequency, urinary hesitancy or urinary urgency Musculoskeletal Musculoskeletal: Denies joint pain, joint stiffness or joint swelling Integumentary Integumentary: Denies lesions, pruritus or rash Neurologic Neurologic: Denies confusion, dizziness or numbness Psychiatric Psychiatric: Reports depression; Denies anxiety Endocrine Endocrinology: Denies cold intolerance, heat intolerance, polydipsia or polyphagia Hematologic/Lymphatic Hematologic/Lymphatic: Denies easy bleeding or easy bruising Physical Exam Const alert, oriented x3 and no apparent distress General Appearance: cooperative and comfortable HEENT normocephalic Eyes General Eye: normal appearance of both eyes Neck General: normal visual inspection Lymph Lymphatic: no lymphadenopathy noted and no lymphedema noted Resp normal respiratory effort Cardio regular rate and regular rhythm Extremity normal capillary refill, no joint enlargement and no calf tenderness Extremity Narrative: Left lower extremity: There is decreased arch height of the left foot with slight valgus deformity of the ankle secondary to posterior tibial tendon dysfunction, stage IIb. AFO to left lower extremity to assist in gait Right lower extremity there is significant decreased arch height of the right foot with valgus deformity of the calcaneus and severe valgus deformity of the ankle secondary to posterior tibial tendon dysfunction, stage IV. Range of motion at the ankle is smooth, nonpainful, without crepitus. She achieves 10 degrees of dorsiflexion and 5 degrees of plantarflexion. Midfoot range of motion is rigid and nonpainful. Subtalar joint range of motion is rigid and nonpainful. Upon standing she is noted to be weightbearing to the medial aspect of the foot and region of the navicular bone with tibial valgum and internal rotation of the right hip. Secondary to deformity limb length discrepancy is noted. Peripheral Pulses: Yes posterior tibial pulses present and dorsalis pedis pulses present Skin no rashes or lesions noted, no wounds, skin turgor normal and no jaundice Neuro oriented x3 and moves all extremities Psych cooperative and affect normal Lab / Micro Data Result Diagrams: 09/21/21 10:05 09/21/21 10:05
[2021-09-28 20:10] VITALS: BP 127/85; PULSE 69; RESP 17; TEMP 36.3; O2SAT 100
[2021-09-29] MEDS: traMADol 50 MG Tablet PO ×2 (06:35→20:23)
[2021-09-29] MEDS: Levothyroxine 150 MCG Tablet PO (06:35)
[2021-09-29] MEDS: Acetaminophen 500 MG Tablet 1000 MG PO ×3 (06:35→20:23)
[2021-09-29 07:41] VITALS: BP 122/66; PULSE 74; RESP 18; TEMP 36.4; O2SAT 96
[2021-09-29 07:52] VITALS: PULSE 77
[2021-09-29] MEDS: Metoprolol Tartrate 25 MG Tablet PO (07:52)
[2021-09-29] MEDS: Hydroxychloroquine 200 MG Tablet PO ×2 (07:52→20:23)
[2021-09-29] MEDS: Cholecalciferol (VIT D3) 25 MCG TABLET (1,000 UNITS) 50 MCG PO (07:52)
[2021-09-29] MEDS: Leflunomide 10 MG TABLET 20 MG PO (07:53)
[2021-09-29] MEDS: DULoxetine Hcl 60 MG Capsule PO (07:53)
[2021-09-29] MEDS: Aspirin 81 MG TAB.CHEW PO ×2 (07:53→17:14)
[2021-09-29] MEDS: Iron Polysaccharide Complex 150 MG CAPSULE PO (07:53)
--- NOTE | 2021-09-29 13:51 | DCINST_ITS ---
Discharge Instructions Diet Discharge Diet: No restrictions Activity Discharge Activity: May Not Drive, May Shower and Use Walker Weight Bearing Status: Full weight bearing Keep extremity elevated above heart level: Right Leg Dressing / Incision Call your doctor if your incision/area has: Sudden Increased Bleeding, Increased Pain/ Swelling, Increased Redness and Foul Smelling Discharge Call your doctor if you observe: Fever of 101 or Higher, Inability to have a bowel movement, Shortness of breath, Dizziness, Fainting spells, Swelling in the ankles, Chest pain, Increased palpitations (irregular heartbeat), Calf discomfort and Uncontrolled pain Suture Line Care: Avoid Pulling/Pushing and Avoid Pinching/Bending Cleanse incision/area with: Soap & Water Additional Dressing/Incision Instructions:: OK to keep the incision with a clean dry dressing until sutures ate removed Saturday at [facility] Follow Up Care Please Follow Up With: Terell Erazo MD When: Saturday at the office Test Results: Test results from this visit will be discussed in further detail at your follow- up appointment, if applicable. Pending Tests Upon Discharge: none Discharge Plan Admission Admit Date/Time: 09/20/21 18:24 Primary Reason for Your Visit: R THR Attending Provider: Haydee Brady Primary Care Provider: Billy Church Consulting Providers: Shankar Jackson Instructions Patient Instructions: Hip Precautions, After Hip Replacement: Home Safety, Hip Total Replacement Dc Additional Instructions / Restrictions: 1. I think it is the deformity of the ankle that causes the problem with the R hip and the R knee. I think that your R ankle needs fused before you have any additional surgery on the R knee or hip. Your R foot is inverted and makes you pigeon toed on the R due to the severe deformity of the ankle. You are walking with only the medial foot in contact with the ground. The outside of the foot does not even touch the ground when you are walking because the ankle is so deformed. This affects the positioning of the knee and it makes you knock kneed on the R leg and this affects the positioning of the R hip because it causes internal rotation of the hip which may contribute to the dislocations. It is a position we tell people not to do after a hip replacement because it increases the risk for dislocation. The currency examiner you saw in the hospital is Dr. Shankar Jackson. He belongs to a group of podiatrists named [facility] and they are located on [facility]. The phone # is [phone]. 2. In my opinion you are still at risk for hip location due to the internal rotation of the hip which is caused by the ankle deformity. I am giving you some handouts listing the hip precautions you are to maintain for at least the next 3 months.......there are pictures to help you know what NOT to do. 3. You will need to have the thyroid stimulating hormone (TSH) and the thyroxine (T4) levels checked in 4-6 weeks to make sure that 150 mcg of Levothyroxine is the dose that is right for you. You were on too high a dose of Thyroid medication when you came to the hospital and this is what was causing diarrhea. It also increases bone loss. You have not had a bone density study since February 2019 according to the EMR and it is probably time to have another. You should discuss this with Dr. Green. 4. If you have any questions after you leave rehab please do not hesitate to call me. Office: [phone] . Discharge Orders/Prescriptions Prescriptions: New acetaminophen 500 mg Tablet 1,000 mg PO Q8 MDD 4,000 mg PRN (Reason: fever or pain) Qty: 0 0RF duloxetine 60 mg Capsule,Delayed Release(Dr/Ec) 60 mg PO DAILY Qty: 30 0RF tramadol 50 mg Tablet 50 mg PO Q6H PRN (Reason: pain 4-10) 7 Days Qty: 28 0RF Continued loratadine-pseudoephedrine [Claritin-D 24 Hour] 10-240 mg tablet extended release 24 hr 1 tab PO QAM PRN (Reason: Sinus Symptoms) leflunomide 20 MG tablet 20 mg PO DAILY Hold Instructions: Resume on 06/22/21. Label Comments: RHEUMATOID ARTHRITIS hydroxychloroquine 200 MG tablet 200 mg PO BID Label Comments: RHEUMATOID ARTHRITIS cholecalciferol (vitamin D3) 2,000 UNIT tablet 2,000 unit PO DAILY Label Comments: SUPPLEMENT ipratropium bromide 42 mcg (0.06 %) spray,non-aerosol 2 spray NASAL TID 30 Days Qty: 15 0RF metoprolol tartrate 50 mg tablet 25 mg PO DAILY polysaccharide iron complex [Ferrex 150] 150 mg iron capsule 150 mg PO DAILY tramadol 50 mg tablet 50 mg PO Q6H PRN (Reason: pain) 7 Days Qty: 28 0RF levothyroxine 150 mcg tablet 150 mcg PO DAILY Qty: 30 1RF aspirin 81 mg tablet,chewable 81 mg PO BID Qty: 1 0RF Rx Instructions: Take 1 twice a day until 10/16/21 and then stop. If you were taking 1 aspirin a day prior to surgery you can resume on 10/17/21. Referrals / Follow Up: Shankar Jackson DPM [Med Staff - Active Staff] - 10/09/21 1:30 pm (arrive at 1:00) Billy Church MD [Primary Care Provider] - 10/30/21 12:50 pm Terell Erazo MD [Med Staff - Active Staff] - 10/02/21 3:15 pm Disposition Disposition (needs filled in before D/C Order can be placed): Home, Self Care
--- NOTE | 2021-09-29 14:56 | DS.PCM_ITS ---
Providers Date of Admission: 09/20/21 Date of Discharge: 10/01/21 Primary Care Physician: Dr. Billy Church MD Consultations 09/28/21 13:35 Consult: Podiatry Routine Consulting Provider: Shankar Jackson Reason for Consult: cherrie deformity R ankle EMERGENT Consult: No MD Notified: Yes Date Notified: 09/28/21 Time Notified: 13:35 Method of Notification: Verbal Reason For Visit: R HIP REPLACEMENT Diagnosis Discharge Diagnosis (1) Physical debility: Status: Acute Code(s): R53.81 - Other malaise (2) Recurrent dislocation, right hip: Status: Acute Code(s): M24.451 - Recurrent dislocation, right hip Plan: Continue therapy. Plan DC on Saturday to home. Will need [facility] because neither she nor her drives and she has had [facility] in the past. (3) History of revision of total replacement of right hip joint: Status: Acute Code(s): Z96.641 - Presence of right artificial hip joint Plan: Healing well. Will follow up with Dr. Erazo Saturday for staple removal. (4) Iatrogenic hyperthyroidism: Status: Acute Code(s): E05.80 - Other thyrotoxicosis without thyrotoxic crisis or storm Plan: With diarrhea. Dose decreased to 150 mcg of Levothyroxine daily. Diarrhea resolved with holding Levothyroxine for 3 days and then restarting at the lower dose. (5) Hypophosphatemia: Status: Acute Code(s): E83.39 - Other disorders of phosphorus metabolism (6) Hypothyroidism: Status: Chronic Code(s): E03.9 - Hypothyroidism, unspecified (7) Chronic renal failure, stage 3a: Status: Acute Code(s): N18.31 - Chronic kidney disease, stage 3a Plan: stable (8) Depression: Status: Chronic Code(s): F32.A - Depression, unspecified Plan: Awaiting the records from the mental Health facility in [place] where she was a pt in the past few months. (9) Posterior tibial tendinitis, right leg: Status: Acute Code(s): M76.821 - Posterior tibial tendinitis, right leg (10) Posterior tibial tendinitis, left leg: Status: Acute Code(s): M76.822 - Posterior tibial tendinitis, left leg (11) Acquired valgus deformity of right ankle: Status: Acute Code(s): M21.071 - Valgus deformity, not elsewhere classified, right ankle Plan: With Tibial valgus and internal rotation of the R hip. (12) Primary osteoarthritis, right ankle and foot: Status: Acute Code(s): M19.071 - Primary osteoarthritis, right ankle and foot (13) Diarrhea: Status: Resolved Code(s): R19.7 - Diarrhea, unspecified (14) Cognitive dysfunction: Status: Acute Code(s): F09 - Unspecified mental disorder due to known physiological condition Plan: Mild. She was administered a Brief cognitive Assessment Tool while admitted to rehab. She scored 40/50. In May when she was admitted to rehab after R hip fracture she scored 43/50. She has an increased risk of dementia and should be followed closely for progression. Plan 1. DC home on 10/01/21. 2. [facility] at discharge. 3. Follow up with Dr. Erazo on Saturday to remove humera. 4. Follow up with Dr. Green in the next 1-2 weeks. 5. Follow up with Dr. Shankar Jackson at [facility] to discuss fusion of the R ankle. 6. Recommend a BMD test in the future......her last in the EMR is February of 2019 and she has had iatrogenic hyperthyroidism which increases bone loss. 7. Recommend she follows up with at [facility] at least once a year to assess for ongoing cognitive loss. Alternatively she can follow up with Dr. Queta Sorto who is a information technology director with specialty in dementia treatment. . Medications at Discharge Home Medications hydroxychloroquine 200 mg tablet 200 mg PO BID Arthritis 02/19/13 leflunomide 20 mg tablet 20 mg PO DAILY R.A. 02/19/13 cholecalciferol (vitamin D3) 50 mcg (2,000 unit) tablet 2,000 unit PO DAILY SUPPLEMENT 01/22/17 loratadine-pseudoephedrine ER 10 mg-240 mg tablet,extended [id number] (Claritin-D 24 Hour) 1 tab PO QAM PRN Sinus Symptoms 01/22/17 ipratropium bromide 42 mcg (0.06 %) nasal spray 2 spray NASAL TID Check with primary doctor 30 days #15 mL 07/17/21 metoprolol tartrate 50 mg tablet 25 mg PO DAILY BP 08/17/21 polysaccharide iron complex 150 mg iron capsule (Ferrex) 150 mg PO DAILY supple ment 09/20/21 acetaminophen 500 mg tablet 1,000 mg PO Q8 PRN fever or pain #0 tabs 09/29/21 aspirin 81 mg chewable tablet 81 mg PO BID DVT prevention #1 TAB 09/29/21 duloxetine 60 mg capsule,delayed release 60 mg PO DAILY #30 caps 09/29/21 levothyroxine 150 mcg tablet 150 mcg PO DAILY THYROID #30 tabs 09/29/21 tramadol 50 mg tablet 50 mg PO Q6H PRN pain 4-10 7 days #28 tabs 09/29/21 tramadol 50 mg tablet 50 mg PO Q6H PRN pain 7 days #28 tabs 09/29/21 Hospital Course Operations - (Right total hip replacement on 09/18/[address] Terell Erazo.) Procedures None Summary of Care Provided Minutes Spent on Discharge: 42 Hospital Course: LORA AGUIRRE, is a 71 YO?F with a PMH of hypertension, hyperlipidemia, diabetes mellitus type 2, obesity, allergic rhinitis, rheumatoid arthritis, hypothyroidism, R hip cemented hemiarthroplasty on 06/07/21 for R hip fracture, mild cognitive dysfunction and osteoarthritis who presented to the emergency department at [facility] on 09/15/2021 with a right hip dislocation.? This was the seventh dislocation of her right hip since the right hip cemented hemiarthroplasty on 06/07/2021.? She has been following up with Dr. Erazo who made the decision to schedule Lora for a total right hip replacement 09/18/2021.? While in the hospital an incidental finding was a low TSH at 0.16 with an elevated free T4 at 1.8.? She was having diarrhea. The Synthroid dose was decreased to 150 mcg daily.? She was seen by PT/OT in the hospital and they recommended admission to rehab at [facility] from the hospital.? On her 2nd post op day she was transferred to the acute rehab unit at [facility] for 3 hours of therapy daily to restore function/independence at or near her prior level of function.? Since the initial hemiarthroplasty on 06/07/2021 she has been home only a total of 4 days due to multiple dislocations. Mine continued to have diarrhea on the lower dose of levothyroxine. The medication was held for 3 days and then restarted on 09/29/2021. On that day she had a normal formed bowel movement. She will need a follow-up TSH, T4 in 4 to 6 weeks to verify that she is in the therapeutic range. I am familiar with Mine from her admission to rehab in May of 2021. She has a very abnormal gait. She had to wear special shoes when she was a child but, has never had surgery. She has an AFO she wears on the left leg but, has no brace for the R. There is marked deformity of the R ankle and upon standing she is noted to be weight bearing to the medial aspect of the foot and region of the navicular bone with tibial valgum and internal rotation of the right hip. Consult was obtained with Dr. Shankar Jackson from podiatry and fusion of the R ankle is recommended. She has limited range of motion in the right foot with 10 degrees of dorsiflexion and 5 degrees of plantarflexion. The midfoot range of motion is rigid and the subtalar joint range of motion is rigid also. Secondary to these deformities there is a leg length discrepancy. She plans on follow up with podiatry following DC. Lora was seen by ST as well as PT/OT while she was on rehab. She was diagnosed with mild cognitive dysfunction in May 2021 when she was in rehab after a fall caused a R hip fracture. A BCAT (basic cognitive assessment tool) was done in May and she scored 43/50. The test was repeated this admission and she scored a 40/50. She is at increased risk for dementia and will need to be monitored and assessed on a regular basis for deterioration. She may benefit from medication. I suggested to her that if she wants to keep on top of this she should consider a consult with Dr. Queta Sorto who is a information technology director who specializes in diagnosing and treating dementia. Dr. Sorto's office number is [phone]. Lora did well in therapy and prior to DC she was able to complete 5 stands in 30 seconds using her bilateral upper extremities to help push out. She was able to complete the tug test (turn up and go) in 28.99 seconds with her goal being less than 30 seconds. She had ambulated 200 feet with a wheeled walker at supervision. She requires minimal assistance with lower body dressing and bathing but is independent or supervision/standby assist with all other ADL's. She was discharged home on 09/30/21 with [facility]. She has an appt with Dr. Erazo on the to remove the humera. She will also follow up with her PCP, Dr. Billy Green, in 1-[address]Michael Jackson [facility] the [facility] to discuss R ankle fusion. She will need a TSH and a T4 in 4-6 weeks to make sure she is within a theraptic range on 150mcg of levothyroxine daily. Physical Exam Const alert, oriented x3 and no apparent distress General Appearance: cooperative HEENT normocephalic Eyes PERRL, EOMs intact bilaterally, conjunctivae normal, no scleral icterus and normal visual palm by confrontation Neck no lymphadenopathy, supple and no carotid bruits Resp normal respiratory effort, normal air movement, no retractions, no use of accessory muscles and clear to auscultation bilaterally Effort and Inspection: able to speak in complete sentences Cardio regular rate, regular rhythm, S1 normal heart sound, S2 normal heart sound, no murmurs, no rub and no gallops GI normal to inspection, nondistended, normoactive bowel sounds, soft to palpation and non-tender GI Narrative: no guarding with palpation and no masses appreciated Extremity no calf tenderness and no pedal edema Extremity Narrative: When I watch her walk the R foot is inverted to the point that the outside of the shoe on the R foot is not in contact with the ground and the R medial malleolus is projected medial to the medial side of the foot. This causes the knee to General Extremity: Negative for clubbing or cyanosis Skin General Skin Exam: no breakdown Rashes: no rashes Wound Narrative: Wound is healing and there is no erythema and no DC from the incision. Dr. Erazo would like to see her to take the humera out next Saturday in the office. Neuro oriented x3, CN's II-XII intact bilaterally and moves all extremities Neuro Narrative: she repeats herself a lot from day to day telling me the same stories but, she also remembers things from a few days ago Psych mental status grossly normal, thought process normal, cooperative, affect normal, speech normal, activity/motor behavior normal, denies hallucinations, denies homicidal ideation and denies suicidal ideation Appearance: grossly normal Attitude: calm Activity / Motor Behavior: appropriate eye contact Weight / BMI Weight Weight: 214 lb Body Mass Index (BMI) 31.2 ABG / Lab / Microbiology Data Result Diagrams: 09/21/21 10:05 09/21/21 10:05 Microbiology: Microbiology 09/21/21 06:50 Stool Stool Occult Blood (DONNELL) - Final D/C Instructions Discharge Diet: No restrictions Weight Bearing Status: Full weight bearing Keep extremity elevated above heart level: Right Leg Call your doctor if your incision/area has: Sudden Increased Bleeding, Increased Pain/ Swelling, Increased Redness and Foul Smelling Discharge Call your doctor if you observe: Fever of 101 or Higher, Inability to have a bowel movement, Shortness of breath, Dizziness, Fainting spells, Swelling in the ankles, Chest pain, Increased palpitations (irregular heartbeat), Calf discomfort and Uncontrolled pain Suture Line Care: Avoid Pulling/Pushing and Avoid Pinching/Bending Cleanse incision/area with: Soap & Water Additional Dressing/Incision Instructions: OK to keep the incision with a clean dry dressing until sutures ate removed Saturday at [facility] Pending Tests Upon Discharge: none Please Follow Up With: Terell Erazo MD When: Saturday at the office Meaningful Use Info Meaningful Use Diagnoses (Choose all that apply): None applicable Discharge Plan Admission Admit Date/Time: 09/20/21 18:24 Primary Reason for Your Visit: R THR Attending Provider: Haydee Brady Primary Care Provider: Billy Church Consulting Providers: Shankar Jackson Instructions Patient Instructions: Hip Precautions, After Hip Replacement: Home Safety, Hip Total Replacement Dc Additional Instructions / Restrictions: 1. I think it is the deformity of the ankle that causes the problem with the R hip and the R knee. I think that your R ankle needs fused before you have any additional surgery on the R knee or hip. Your R foot is inverted and makes you pigeon toed on the R due to the severe deformity of the ankle. You are walking with only the medial foot in contact with the ground. The outside of the foot does not even touch the ground when you are walking because the ankle is so deformed. This affects the positioning of the knee and it makes you kn ock kneed on the R leg and this affects the positioning of the R hip because it causes internal rotation of the hip which may contribute to the dislocations. It is a position we tell people not to do after a hip replacement because it increases the risk for dislocation. The transformer mechanic you saw in the hospital is Dr. Shankar Jackson. He belongs to a group of podiatrists named [facility] and they are located on [facility]. The phone # is [phone]. 2. In my opinion you are still at risk for hip location due to the internal rotation of the hip which is caused by the ankle deformity. I am giving you some handouts listing the hip precautions you are to maintain for at least the next 3 months.......there are pictures to help you know what NOT to do. 3. You will need to have the thyroid stimulating hormone (TSH) and the thyroxine (T4) levels checked in 4-6 weeks to make sure that 150 mcg of Levothyroxine is the dose that is right for you. You were on too high a dose of Thyroid medication when you came to the hospital and this is what was causing diarrhea. It also increases bone loss. You have not had a bone density study since February 2019 according to the EMR and it is probably time to have another. You should discuss this with Dr. Green. 4. If you have any questions after you leave rehab please do not hesitate to call me. Office: [phone] . Discharge Orders/Prescriptions Prescriptions: New acetaminophen 500 mg Tablet 1,000 mg PO Q8 MDD 4,000 mg PRN (Reason: fever or pain) Qty: 0 0RF duloxetine 60 mg Capsule,Delayed Release(Dr/Ec) 60 mg PO DAILY Qty: 30 0RF tramadol 50 mg Tablet 50 mg PO Q6H PRN (Reason: pain 4-10) 7 Days Qty: 28 0RF Continued loratadine-pseudoephedrine [Claritin-D 24 Hour] 10-240 mg tablet extended release 24 hr 1 tab PO QAM PRN (Reason: Sinus Symptoms) leflunomide 20 MG tablet 20 mg PO DAILY Hold Instructions: Resume on 06/22/21. Label Comments: RHEUMATOID ARTHRITIS hydroxychloroquine 200 MG tablet 200 mg PO BID Label Comments: RHEUMATOID ARTHRITIS cholecalciferol (vitamin D3) 2,000 UNIT tablet 2,000 unit PO DAILY Label Comments: SUPPLEMENT ipratropium bromide 42 mcg (0.06 %) spray,non-aerosol 2 spray NASAL TID 30 Days Qty: 15 0RF metoprolol tartrate 50 mg tablet 25 mg PO DAILY polysaccharide iron complex [Ferrex 150] 150 mg iron capsule 150 mg PO DAILY tramadol 50 mg tablet 50 mg PO Q6H PRN (Reason: pain) 7 Days Qty: 28 0RF levothyroxine 150 mcg tablet 150 mcg PO DAILY Qty: 30 1RF aspirin 81 mg tablet,chewable 81 mg PO BID Qty: 1 0RF Rx Instructions: Take 1 twice a day until 10/16/21 and then stop. If you were taking 1 aspirin a day prior to surgery you can resume on 10/17/21. Referrals / Follow Up: Shankar Jackson DPM [Med Staff - Active Staff] - 10/09/21 1:30 pm (arrive at 1:00) Billy Church MD [Primary Care Provider] - 10/30/21 12:50 pm Terell Erazo MD [Med Staff - Active Staff] - 10/02/21 3:15 pm Disposition Disposition (needs filled in before D/C Order can be placed): Home, Self Care Charges/Coding Visit Charges Inpatient E&M: 44867 Disch Hosp
[2021-09-29 20:00] VITALS: BP 120/66; PULSE 70; RESP 17; TEMP 36.4; O2SAT 98
[2021-09-29] MEDS: Menthol/Lanolin/Calamine/Znox 113 GM Tube 1 APPLIC TOPICAL (20:23)
[2021-09-30] MEDS: traMADol 50 MG Tablet PO ×2 (06:07→20:12)
[2021-09-30] MEDS: Levothyroxine 150 MCG Tablet PO (06:07)
[2021-09-30] MEDS: Menthol/Lanolin/Calamine/Znox 113 GM Tube 1 APPLIC TOPICAL ×2 (06:08→20:15)
[2021-09-30] MEDS: Acetaminophen 500 MG Tablet 1000 MG PO ×3 (06:08→21:54)
[2021-09-30 07:40] LABS: Hematocrit 29.4 % (37-47); Hemoglobin 9.4 g/dL (12.0-15.0); Mean Corpuscular Volume 84.5 fL (81-99); Mean Platelet Vol. 10.8 fl (6.2-12.0); Platelet Count 198 K/mm3 (150-450); RBC Distribution Width CV 15.8 % (11.6-14.6); RBC Distribution Width SD 48.2 fl (35.1-43.9); Red Blood Count 3.48 M/mm3 (4.2-5.4); White Blood Count 3.6 K/mm3 (4.4-11.0)
[2021-09-30 08:05] LABS: Anion Gap 6 (5-15); BUN 15 mg/dL (7-18); Calcium,Total 7.5 mg/dL (8.5-10.1); Chloride 110 mmol/L (98-107); Creatinine, Serum 0.79 mg/dL (0.55-1.02); EST Glomerular Filtration Rate 76 mL/min (>60); Est Glom Filt Rate - Afr Amer 92 mL/min (>60); Estimated Creatinine Clearance 54.99 ml/min; Glucose 90 mg/dL (74-106); Phosphorus 2.6 mg/dL (2.5-4.9); Potassium 3.4 mmol/L (3.5-5.1); Sodium Level 138 mmol/L (136-145)
[2021-09-30] MEDS: Hydroxychloroquine 200 MG Tablet PO ×2 (08:09→20:13)
[2021-09-30] MEDS: Iron Polysaccharide Complex 150 MG CAPSULE PO (08:09)
[2021-09-30] MEDS: Cholecalciferol (VIT D3) 25 MCG TABLET (1,000 UNITS) 50 MCG PO (08:09)
[2021-09-30] MEDS: Leflunomide 10 MG TABLET 20 MG PO (08:09)
[2021-09-30] MEDS: Aspirin 81 MG TAB.CHEW PO ×2 (08:09→16:48)
[2021-09-30] MEDS: DULoxetine Hcl 60 MG Capsule PO (08:10)
[2021-09-30 08:13] VITALS: PULSE 84
[2021-09-30] MEDS: Metoprolol Tartrate 25 MG Tablet PO (08:13)
[2021-09-30 08:16] VITALS: BP 112/64; PULSE 83; RESP 16; TEMP 37.1; O2SAT 97
--- NOTE | 2021-09-30 11:40 | PCM.PROGNOTE ---
Subjective Subjective Afebrile Vital signs stable Maintaining appropriate oxygen saturation on room air. Medication list was reviewed. All lab was personally reviewed. WBC count is low at 3.6. Hemoglobin is 9.4, down from 12 on 09/21/2021 however it is in line with prior hemoglobins and stable. The MCV has been decreasing and the RDW is elevated. Suspect she may be iron deficient. She is on an iron supplement but may not be absorbing it. Platelets are within normal limits. It is 138 and the potassium is 3.4. The BUN is down to 15 and the creatinine is now 0.79, down from 1.13 on 09/21/2021. Phosphorus is now within normal limits. The calcium is low at 7.5.......will order and albumin and calculate calcium corrected for hypoalbuminemia. She is on a Vitamin D supplement but, she is not on a calcium supplement. The albumin was 2.2 and the calcium corrected for the low albumin is WNL at 8.9. Denies diarrhea. No complaints today. RX's for home faxed yesterday and they are being stored in the locked med room until DC tomorrow. DC tomorrow. 40 MEQ of KCL today. Objective Data Objective Data Vital Signs: Vital Signs Temp Pulse Resp BP Pulse Ox O2 Del Method 98.8 F 83 16 112/64 97 Room Air 09/30/21 08:16 09/30/21 08:16 09/30/21 08:16 09/30/21 08:16 09/30/21 08:16 09/30/21 08:22 Oxygen Delivery Method Room Air Weight: 210 lb 8.663 oz Body Mass Index (BMI) 31.2 Lab / Micro Data Result Diagrams: 09/30/21 07:17 09/30/21 07:17 Labs: Laboratory Results - last 24 hr 09/30/21 07:17: WBC 3.6 L, RBC 3.48 L, Hgb 9.4 L, Hct 29.4 L, MCV 84.5, MCH 27.0, MCHC 32.0, RDW Std Deviation 48.2 H, RDW Coeff of Rita 15.8 H, Plt Count 198, MPV 10.8 09/30/21 07:17: Sodium 138, Potassium 3.4 L, Chloride 110 H, Carbon Dioxide 22.0, Anion Gap 6, BUN 15, Creatinine 0.79, Estim Creat Clear Calc 54.99, Est GFR (MDRD) Af Amer 92, Est GFR (MDRD) Non-Af 76, BUN/Creatinine Ratio 19.0, Glucose 90, Calcium 7.5 L, Phosphorus 2.6 Micro: Microbiology 09/21/21 06:50 Stool Stool Occult Blood (DONNELL) - Final Charges/Coding Visit Charges Inpatient E&M: 27874 Subs Hosp L1
[2021-09-30 12:30] LABS: Albumin, Serum 2.2 g/dL (3.2-5.0)
[2021-09-30] MEDS: Potassium Chloride Oral Tablet 20 MEQ PO ×2 (14:10→16:48)
[2021-09-30 19:14] VITALS: BP 135/76; PULSE 74; RESP 16; TEMP 36.8; O2SAT 97
[2021-09-30 22:00] VITALS: PULSE 71; RESP 16; O2SAT 97
[2021-10-01] MEDS: traMADol 50 MG Tablet PO (05:43)
[2021-10-01] MEDS: Menthol/Lanolin/Calamine/Znox 113 GM Tube 1 APPLIC TOPICAL (05:43)
[2021-10-01] MEDS: Acetaminophen 500 MG Tablet 1000 MG PO (05:44)
[2021-10-01] MEDS: Levothyroxine 150 MCG Tablet PO (05:45)
[2021-10-01] MEDS: Leflunomide 10 MG TABLET 20 MG PO (09:03)
[2021-10-01] MEDS: Iron Polysaccharide Complex 150 MG CAPSULE PO (09:04)
[2021-10-01] MEDS: Aspirin 81 MG TAB.CHEW PO (09:04)
[2021-10-01] MEDS: Hydroxychloroquine 200 MG Tablet PO (09:04)
[2021-10-01] MEDS: DULoxetine Hcl 60 MG Capsule PO (09:04)
[2021-10-01] MEDS: Cholecalciferol (VIT D3) 25 MCG TABLET (1,000 UNITS) 50 MCG PO (09:05)
[2021-10-01 09:12] VITALS: BP 129/78; PULSE 83; RESP 16; TEMP 36.6; O2SAT 97
[2021-10-01] MEDS: Metoprolol Tartrate 25 MG Tablet PO (09:12)
== END 2021-10-01 14:00 | disposition home health service (06) | DRG 470 ==
PROVIDERS: Admitting Provider Internal Medicine; PCP Family Medicine; Visit Provider Internal Medicine
DX: M24.451 Recurrent dislocation, right hip (principal); E44.0 Moderate protein-calorie malnutrition; K50.90 Crohn's disease, unspecified, without complications; E11.40 Type 2 diabetes mellitus with diabetic neuropathy, unspecified; E11.22 Type 2 diabetes mellitus with diabetic chronic kidney disease; N18.31 Chronic kidney disease, stage 3a; E66.01 Morbid (severe) obesity due to excess calories; M06.9 Rheumatoid arthritis, unspecified; E03.9 Hypothyroidism, unspecified; M76.821 Posterior tibial tendinitis, right leg; E05.90 Thyrotoxicosis, unspecified without thyrotoxic crisis or storm; Q66.6 Other congenital valgus deformities of feet; E78.5 Hyperlipidemia, unspecified; M76.822 Posterior tibial tendinitis, left leg; I12.9 Hypertensive chronic kidney disease with stage 1 through stage 4 chronic kidney disease, or unspecified chronic kidney disease; M19.071 Primary osteoarthritis, right ankle and foot; E55.9 Vitamin D deficiency, unspecified; M25.351 Other instability, right hip; F32.A Depression, unspecified; Z79.899 Other long term (current) drug therapy; Z79.890 Hormone replacement therapy; Z79.82 Long term (current) use of aspirin; Z68.31 Body mass index [BMI] 31.0-31.9, adult; Z96.641 Presence of right artificial hip joint; R53.81 Other malaise
CPT/HCPCS: 36415; 73502; 80048; 80053; 82040; 82274; 82306; 83036; 83735; 84100; 84439; 84443; 85025; 85027; 86850; 86900; 86901; 87015; 87070; 87075; 87102; 87116; 87205; 87206; 92507; 93005; 96125; 97110; 97116; 97129; 97130; 97162; 97166; 97530; 97535; 97802; 97803; 99152; 99251; 99285; C1776; J7030; J7050; J7120; A4216; G0463; J2405

== ENCOUNTER 2021-11-26 21:11 | Emergency (ER) | payer MEDICARE, BC, SELFPAY ==
[2021-11-26 21:13] VITALS: BP 139/87; PULSE 84; RESP 19; TEMP 36.4; O2SAT 100; BMI 25.5
--- NOTE | 2021-11-26 21:32 | EDS_ITS ---
HPI History of Present Illness Chief Complaint: General Illness Informant: patient Onset/Context/Timing Onset: Today Context: Sudden Onset Timing: Continuous Quality: Lightheaded, spinning Location: Head Worsened by: Head movement Relieved by: Nothing Narrative Narrative: Patient presents with nausea and dizziness that began today. Patient states it began rather suddenly. Patient states it has been constant. Patient describes it as lightheaded and spinning. Patient states it is worse with certain movements. Patient states nothing makes it better. Patient denies any vomiting. Patient admits to some urinary frequency but states she has been drinking more water recently. Patient denies any fevers or chills. Patient denies any ear pain or hearing changes. Patient denies any tinnitus. Patient denies any rhinorrhea or sore throat. [facility] Medical History Allergic rhinitis Back pain due to injury Breast lump Chronic mental illness Chronic renal failure, stage 3a Cognitive dysfunction Depression Fall at home Fracture of hip, right, closed Goiter History of blood transfusion History of revision of total replacement of right hip joint History of uterine fibroid HTN (hypertension) Hypertension Hypothyroidism Hypothyroidism Instability of right hip joint Kidney stones Malnourished Neuropathy Obesity (BMI 30-39.9) Osteoarthritis Physical debility Post-menopausal Posterior tibial tendinitis, left leg 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 02/19/13 [History Last Taken 06/06/21] cholecalciferol (vitamin D3) 50 mcg (2,000 unit) tablet 2,000 unit PO DAILY SUPPLEMENT 01/22/17 [History Last Taken 06/06/21] loratadine-pseudoephedrine ER 10 mg-240 mg tablet,extended [id number] (Claritin-D 24 Hour) 1 tab PO QAM PRN Sinus Symptoms 01/22/17 [History Last Taken 06/05/21] metoprolol tartrate 50 mg tablet 25 mg PO DAILY BP 08/17/21 [History Last Taken Unknown] polysaccharide iron complex 150 mg iron capsule (Ferrex) 150 mg PO DAILY supplement 09/20/21 [History Last Taken Unknown] acetaminophen 500 mg tablet 1,000 mg PO Q8 PRN fever or pain #0 tabs 09/29/21 [Rx Last Taken Unknown] duloxetine 60 mg capsule,delayed release 60 mg PO DAILY #30 caps 09/29/21 [Rx La st Taken Unknown] levothyroxine 150 mcg tablet 150 mcg PO DAILY THYROID #30 tabs 09/29/21 [Rx Last Taken 06/06/21] tramadol 50 mg tablet 50 mg PO Q6H PRN pain 7 days #28 tabs 09/29/21 [Rx Last Taken Unknown] meclizine 25 mg tablet 25 mg PO Q8H PRN PRN Dizziness #20 tabs 11/26/21 [Rx Last Taken Unknown] Allergy/AdvReac Type Severity Reaction Status Date / Time amoxicillin trihydrate AdvReac Vomiting Verified 09/15/21 14:36 [From Augmentin] hydrocodone AdvReac Vomiting Verified 09/15/21 14:36 ANESTHESIA AdvReac Unknown Uncoded 09/15/21 14:36 Family History Mother Arthritis Cancer Sister Arthritis Diabetes Father Bleeding disorder Heart disease Hypertension Son Bleeding disorder Surgical History H/O lumpectomy H/O spinal fusion H/O thyroidectomy History of bilateral knee replacement History of right hip hemiarthroplasty History of spinal fusion History of tonsillectomy and adenoidectomy Social History household members: spouse Smoking Status: Never smoker alcohol intake: current alcohol intake frequency: a few times a month substance use type: does not use ROS ROS ED Constitutional Constitutional ED: Denies chills or fever(s) Eyes Eyes: Denies blurry vision or change in vision ENT ENT ED: Denies rhinorrhea or sore throat Cardiovascular Cardiovascular: Denies chest pain or palpitations Respiratory/Chest Respiratory/Chest: Denies cough or dyspnea Gastrointestinal Gastrointestinal: Reports nausea; Denies vomiting Genitourinary Genitourinary ED: Reports urinary frequency; Denies dysuria or hematuria Musculoskeletal Musculoskeletal: Denies back pain or neck pain Integumentary Denies abscess or rash Neurologic Neurologic: Denies headache(s) or weakness Allergic/Immunologic Allergic/Immunologic ED: Denies mouth swelling or urticaria EXAM Physical Exam Const Vital Signs: 11/26/21 21:13 11/26/21 21:21 11/26/21 22:00 Temperature 97.5 F L Temperature Source Oral Pulse Rate 84 Pulse Rate [Lying] 77 Pulse Rate [Sitting (for 1 minute prior to obtaining)] 79 Respiratory Rate 19 H Respiratory Effort Normal Respiratory Pattern Normal Blood Pressure 139/87 H Blood Pressure [Lying] 137/79 H Blood Pressure [Sitting (for 1 minute prior to obtaining)] 144/84 H Blood Pressure Mean 104 Blood Pressure Mean [Lying] 98 Blood Pressure Mean [Sitting (for 1 minute prior to obtaining)] 104 Pulse Ox 100 Oxygen Delivery Method Room Air 11/26/21 23:16 Temperature Temperature Source Pulse Rate 66 Pulse Rate [Lying] Pulse Rate [Sitting (for 1 minute prior to obtaining)] Respiratory Rate 16 Respiratory Effort Respiratory Pattern Blood Pressure 153/100 H Blood Pressure [Lying] Blood Pressure [Sitting (for 1 minute prior to obtaining)] Blood Pressure Mean 117 Blood Pressure Mean [Lying] Blood Pressure Mean [Sitting (for 1 minute prior to obtaining)] Pulse Ox 97 Oxygen Delivery Method Room Air Positive well nourished and well developed General Appearance ED: well developed and NAD HEENT Reports moist mucous membranes Eyes PERRL and EOMs intact bilaterally Eyes Narrative: There is some nystagmus with lateral gaze noted. Neck supple and no JVD Resp normal respiratory effort and clear to auscultation bilaterally Cardio regular rate, regular rhythm and no murmurs GI normal to inspection, nondistended, normoactive bowel sounds and non-tender Palpation: soft Extremity normal to inspection General Extremety ED: Negative for edema or tenderness General Extremity: Negative for edema Neuro oriented x3, CN's II-XII intact bilaterally and no sensory deficits noted Sensorium / Orientation: alert Motor Exam: strength 5/5 throughout Psych mental status grossly normal Skin no rashes or lesions noted MDM MDM MDM Narrative Medical decision making narrative: Patient was given IV fluids. Patient was given Zofran. Patient was given a dose of meclizine. EKG was obtained. On my interpretation, it shows a normal sinus rhythm with a rate of 79. There is left axis deviation at -38. CO interval, QRS interval, and QTc intervals are within normal limits. Basic metabolic profile was within normal limits. Urinalysis shows ketones of 150 but there is no evidence of urinary tract infection or hematuria. CT scan of the brain was obtained. There is no acute intracranial abnormality. There are chronic small vessel changes in the deep white matter. This was interpreted by the radiologist and reviewed by myself. CBC showed slight anemia with a hemoglobin of 11.1. Platelet count was slightly low at 84. White blood cell count was within normal limits. Patient is feeling better on reevaluation. Patient was given a prescription for meclizine. Patient was instructed to drink plenty of fluids. Patient was instructed to follow-up with her primary care physician in 5 to 7 days. Patient understood and was agreeable with the plan. All questions were answered. Lab Data Attestation: I reviewed the patient's lab results. Labs: Laboratory Results - last 24 hr 11/26/21 11/26/21 11/26/21 21:45 21:45 22:50 WBC Cancelled Corrected WBC Cancelled RBC Cancelled Hgb Cancelled Hct Cancelled MCV Cancelled MCH Cancelled MCHC Cancelled RDW Std Deviation Cancelled RDW Coeff of Rita Cancelled Plt Count Cancelled MPV Cancelled Immature Gran % (Auto) Cancelled Neut % (Auto) Cancelled Lymph % (Auto) Cancelled Todd % (Auto) Cancelled Eos % (Auto) Cancelled Baso % (Auto) Cancelled Absolute Neuts (auto) Cancelled Absolute Lymphs (auto) Cancelled Total Counted Cancelled Neutrophils % (Manual) Cancelled Band Neutrophils % Cancelled Lymphocytes % (Manual) Cancelled Monocytes % (Manual) Cancelled Eosinophils % (Manual) Cancelled Basophils % (Manual) Cancelled Metamyelocytes % Cancelled Myelocytes % Cancelled Promyelocytes % Cancelled Blast Cells % Cancelled Plasma Cell % (Manual) Cancelled Other Cells % Cancelled Nucleated RBC % Cancelled Nucleated RBCs/100 WBC Cancelled Differential Comment Cancelled Diff Path Review Cancelled Hypersegmented Neuts Cancelled Atypical Lymphocytes Cancelled Reactive Lymphocytes Cancelled Smudge Cells Cancelled Toxic Granulation Cancelled Toxic Vacuolation Cancelled Dohle Bodies Cancelled Joon Rods Cancelled Platelet Estimate Cancelled Plt Morphology Comment Cancelled RBC Morphology Cancelled Polychromasia Cancelled Hypochromasia Cancelled Poikilocytosis Cancelled Basophilic Stippling Cancelled Anisocytosis Cancelled Microcytosis Cancelled Macrocytosis Cancelled Spherocytes Cancelled Sickle Cells Cancelled Target Cells Cancelled Tear Drop Cells Cancelled Ovalocytes Cancelled Stomatocytes Cancelled Schwartz-Gracey Bodies Cancelled Jignesh Cells Cancelled Bite Cells Cancelled Crenated Cell Cancelled Acanthocytes (Spur) Cancelled Rouleaux Cancelled Schistocytes Cancelled Sodium 138 Potassium 3.3 L Chloride 103 Carbon Dioxide 20.0 L Anion Gap 15 BUN 15 Creatinine 0.81 Estim Creat Clear Calc 67.89 Est GFR (MDRD) Af Amer 89 Est GFR (MDRD) Non-Af 74 BUN/Creatinine Ratio 18.5 Glucose 105 Calcium 8.4 L Troponin I High Sens 23 Urine Color Yellow Urine Clarity Sl. Cloudy Urine pH 7.0 Ur Specific [place] 1.015 Urine Protein 30 H Urine Glucose (UA) Normal Urine Ketones 150 A* Urine Occult Blood 50 H Urine Nitrite Negative Urine Bilirubin 1 H Urine Urobilinogen 4 H Ur Leukocyte Esterase 25 H Urine RBC 0-5 SEEN Urine WBC 0-5 SEEN Ur Squamous Epith Cells 0-5 SEEN Urine Bacteria 1+ Urine Mucus RARE 11/26/21 23:00 WBC 5.0 Corrected WBC RBC 4.11 L Hgb 11.1 L Hct 37.5 MCV 91.2 MCH 27.0 MCHC 29.6 L RDW Std Deviation 56.0 H RDW Coeff of Rita 16.9 H Plt Count 84 L MPV 12.3 H Immature Gran % (Auto) 1.600 H Neut % (Auto) 73.7 H Lymph % (Auto) 12.9 L Todd % (Auto) 10.8 H Eos % (Auto) 0.2 Baso % (Auto) 0.8 Absolute Neuts (auto) 3.7 Absolute Lymphs (auto) 0.64 L Total Counted Neutrophils % (Manual) Band Neutrophils % Lymphocytes % (Manual) Monocytes % (Manual) Eosinophils % (Manual) Basophils % (Manual) Metamyelocytes % Myelocytes % Promyelocytes % Blast Cells % Plasma Cell % (Manual) Other Cells % Nucleated RBC % 0 Nucleated RBCs/100 WBC Differential Comment SCANNED Diff Path Review Hypersegmented Neuts Atypical Lymphocytes Reactive Lymphocytes Smudge Cells Toxic Granulation Toxic Vacuolation Dohle Bodies Joon Rods Platelet Estimate Plt Morphology Comment RBC Morphology Polychromasia Hypochromasia Poikilocytosis Basophilic Stippling Anisocytosis Microcytosis Macrocytosis Spherocytes Sickle Cells Target Cells Tear Drop Cells Ovalocytes Stomatocytes Schwartz-Gracey Bodies [place] Cells Bite Cells Crenated Cell Acanthocytes (Spur) Rouleaux Schistocytes Sodium Potassium Chloride Carbon Dioxide Anion Gap BUN Creatinine Estim Creat Clear Calc Est GFR (MDRD) Af Amer Est GFR (MDRD) Non-Af BUN/Creatinine Ratio Glucose Calcium Troponin I High Sens Urine Color Urine Clarity Urine pH Ur Specific [place] Urine Protein Urine Glucose (UA) Urine Ketones Urine Occult Blood Urine Nitrite Urine Bilirubin Urine Urobilinogen Ur Leukocyte Esterase Urine RBC Urine WBC Ur Squamous Epith Cells Urine Bacteria Urine Mucus Radiography Diagnostic Testing: Clinical Impression(s) from Imaging Studies Brain CT 11/26/21 21:34 IMPRESSION: 1. Mild generalized atrophy. Mild low density bilaterally in the deep white matter. This likely represents small vessel ischemic changes in the deep white matter. 2. Right maxillary sinusitis. Electronically Signed: Shankar Jones MD at 22:39 EDT , EKG Initial EKG: Attestation: I personally reviewed and interpreted this EKG as follows: Interpretation: Sinus Rhythm (79) and Non-Specific ST Changes Prior EKG tracings: available for review Prior: Unchanged (09/18/2021) Discharge Plan Triage Chief Complaint: General Illness ED Provider: Mauro Olea Dx/Rx/DC Orders Clinical Impression: Vertigo Instructions: ED Vertigo, Unspecified Prescriptions: New meclizine 25 mg tablet 25 mg PO Q8H PRN PRN (Reason: Dizziness) Qty: 20 0RF No Action loratadine-pseudoephedrine [Claritin-D 24 Hour] 10-240 mg tablet extended release 24 hr 1 tab PO QAM PRN (Reason: Sinus Symptoms) leflunomide 20 MG tablet 20 mg PO DAILY Hold Instructions: Resume on 06/22/21. Label Comments: RHEUMATOID ARTHRITIS hydroxychloroquine 200 MG tablet 200 mg PO BID Label Comments: RHEUMATOID ARTHRITIS cholecalciferol (vitamin D3) 2,000 UNIT tablet 2,000 unit PO DAILY Label Comments: SUPPLEMENT metoprolol tartrate 50 mg tablet 25 mg PO DAILY polysaccharide iron complex [Ferrex 150] 150 mg iron capsule 150 mg PO DAILY acetaminophen 500 mg Tablet 1,000 mg PO Q8 MDD 4,000 mg PRN (Reason: fever or pain) Qty: 0 0RF duloxetine 60 mg Capsule,Delayed Release(Dr/Ec) 60 mg PO DAILY Qty: 30 0RF tramadol 50 mg tablet 50 mg PO Q6H PRN (Reason: pain) 7 Days Qty: 28 0RF levothyroxine 150 mcg tablet 150 mcg PO DAILY Qty: 30 1RF Primary Care Provider: Billy Church Referrals: Billy Church MD [Primary Care Provider] - 3-5 Days Disposition Disposition: Home, Self Care
--- NOTE | 2021-11-26 21:34 | CT_ITS ---
EXAM: CT HEAD WITHOUT INTRAVENOUS CONTRAST CLINICAL INDICATION: Headache TECHNIQUE: Multiple axial images were obtained of the head without intravenous contrast. This CT exam was performed using one or more of the following dose reduction techniques: automated exposure control, adjustment of the mA and/or kV according to patient size, and/or use of iterative reconstruction technique. This report was created using [employer] report generation technology. RADIATION DOSE: CTDIvol = 44.99 mGy, DLP = 812.98 mGy-cm. COMPARISON: 06/20/2021. FINDINGS: BRAIN AND EXTRA-AXIAL SPACES: Mild generalized atrophy. Mild low density bilaterally in the deep white matter. No intra- or extra-axial hemorrhage. No evidence of acute infarct. No intracranial mass or mass effect. There is preservation of the salazar/white matter interface. Posterior fossa structures are unremarkable. No hydrocephalus. Basal cisterns are patent. BONES/JOINTS: Unremarkable. No discrete lytic or blastic abnormalities. SINUSES: Marked opacification right maxillary sinus new since the previous exam. MASTOID AIR CELLS: Unremarkable. Clear. ORBITS: Visualized globes, extraocular muscles, optic nerves and retrobulbar fat appear unremarkable. CT/Brain/Head without Contrast IMPRESSION: 1. Mild generalized atrophy. Mild low density bilaterally in the deep white matter. This likely represents small vessel ischemic changes in the deep white matter. 2. Right maxillary sinusitis. Electronically Signed: Shankar Jones MD at 22:39 EDT ,
--- NOTE | 2021-11-26 21:35 | EKG12_ITS ---
Test Reason : DIZZINESS Blood Pressure : / mmHG Vent. Rate : 079 BPM Atrial Rate : 079 BPM P-R Int : 102 ms QRS Dur : 082 ms QT Int : 398 ms P-R-T Axes : 076 -38 -48 degrees QTc Int : 456 ms Sinus rhythm with short KS with Premature supraventricular complexes and with occasional Premature ve ntricular complexes Left axis deviation Low voltage QRS Abnormal ECG Confirmed by JUSTYN VARGAS, ANGIE ([id number]), international editorial producer DEMI FREEMAN ([id number]) on 11/28/2021 8:22:01 AM Referred By: RADHA Confirmed By:ANGIE ALEJANDRA MD
[2021-11-26] MEDS: Meclizine HCl 25 MG Tablet PO (21:50)
[2021-11-26] MEDS: Ondansetron 4 MG/2 ML Vial IV (21:50)
[2021-11-26 22:00] VITALS: BP 137/79; BP 144/84; PULSE 77; PULSE 79
[2021-11-26 22:32] LABS: Anion Gap 15 (5-15); BUN 15 mg/dL (7-18); BUN/Creat Ratio 18.5 RATIO (10-20); Calcium,Total 8.4 mg/dL (8.5-10.1); Chloride 103 mmol/L (98-107); Creatinine, Serum 0.81 mg/dL (0.55-1.02); EST Glomerular Filtration Rate 74 mL/min (>60); Est Glom Filt Rate - Afr Amer 89 mL/min (>60); Estimated Creatinine Clearance 67.89 ml/min; Glucose 105 mg/dL (74-106); Potassium 3.3 mmol/L (3.5-5.1); Sodium Level 138 mmol/L (136-145); Troponin-I HS 23 pg/mL (3.0-54.0)
[2021-11-26 22:56] LABS: Color, Urine Yellow (Yellow); Glucose, Dipstick Normal (Normal); Leukocyte Esterase-Dipstick 25 /ul (Negative); Nitrite-Dipstick Negative (Negative); Occult Blood-Urine 50 /ul (Negative); Protein-Dipstick 30 mg/dl (Negative); Specific Gravity, Urine 1.015 (1.002-1.030); Urine Clarity Sl. Cloudy (Clear); Urine Urobilinogen 4 mg/dl (Normal)
[2021-11-26 22:58] LABS: Urine Bilirubin Dipstick 1 mg/dL (Negative)
[2021-11-26 22:59] LABS: Ketone-Dipstick 150 mg/dl (Negative)
[2021-11-26 23:06] LABS: Bacteria 1+ /hpf (None Seen); Red Blood Cells-Urine 0-5 SEEN /hpf (0-5); Squamous Epithelial Cells - UA 0-5 SEEN /hpf (5-10); White Blood Cells 0-5 SEEN /hpf (0-5)
[2021-11-26 23:07] LABS: Mucous, Urine RARE /hpf (<or=2+)
[2021-11-26 23:16] VITALS: BP 153/100; PULSE 66; RESP 16; O2SAT 97
[2021-11-26 23:20] LABS: Absolute Lymphocyte Count 0.64 X10^3/uL (0.83-4.51); Absolute Neutrophil Count 3.7 X10^3/uL (2.0-7.7); Basophil# 0.04 X10^3/uL; Basophil% 0.8 % (0-1); Eosinophil# 0.01 X10^3/uL; Eosinophils% 0.2 % (0-5); Hematocrit 37.5 % (37-47); Hemoglobin 11.1 g/dL (12.0-15.0); Lymphocyte # 0.64 X10^3/ul (0.83-4.51); Lymphocyte % 12.9 % (19-41); Mean Corp Hgb Conc 29.6 g/dL (32-36); Mean Corpuscular Volume 91.2 fL (81-99); Mean Platelet Vol. 12.3 fl (6.2-12.0); Monocyte# 0.54 X10^3/uL; Monocyte% 10.8 % (0-10); NRBC Flagged by Analyzer 0 % (0-5); Neutrophil # 3.67 X10^3/uL (2.7-7.7); Neutrophil % 73.7 % (47-70); POSITIVE COUNT YES; Platelet Count 84 K/mm3 (150-450); RBC Distribution Width CV 16.9 % (11.6-14.6); Red Blood Count 4.11 M/mm3 (4.2-5.4)
[2021-11-26 23:44] LABS: Differential Comment SCANNED; Differential Indicated SCAN CRITERIA MET
[2021-11-26 23:51] VITALS: BP 165/66; PULSE 70; RESP 16; TEMP 36.8; O2SAT 98
--- NOTE | 2021-11-27 00:24 | NURSING ---
Pt does not have ride home came by squad. Unable to ride in a taxi due to history of hip surgery and dislocation. WC van called. DC instructions given. Waiting for ride.
== END 2021-11-27 02:18 | disposition home or self-care (01) ==
PROVIDERS: Emergency Provider Emergency Medicine; PCP Family Medicine; Visit Provider Emergency Medicine
DX: R42 Dizziness and giddiness (principal); E11.22 Type 2 diabetes mellitus with diabetic chronic kidney disease; E11.40 Type 2 diabetes mellitus with diabetic neuropathy, unspecified; N18.31 Chronic kidney disease, stage 3a; I12.9 Hypertensive chronic kidney disease with stage 1 through stage 4 chronic kidney disease, or unspecified chronic kidney disease; R35.0 Frequency of micturition; R05.9 Cough, unspecified
CPT/HCPCS: 70450; 80048; 81001; 84484; 85025; 93005; 96361; 96374; 99285; J7040; A4216; J2405

== ENCOUNTER 2021-12-03 11:33 | Inpatient (IN) | payer MEDICARE, BC, SELFPAY ==
[2021-12-03 11:34] VITALS: BP 129/92; PULSE 78; RESP 18; TEMP 35.8; O2SAT 100; BMI 25.5
--- NOTE | 2021-12-03 12:06 | EKG12_ITS ---
Test Reason : Blood Pressure : / mmHG Vent. Rate : 108 BPM Atrial Rate : 108 BPM P-R Int : 126 ms QRS Dur : 070 ms QT Int : 372 ms P-R-T Axes : 083 -51 -89 degrees QTc Int : 498 ms Sinus tachycardia with Premature atrial complexes Left anterior fascicular block ST & T wave abnormality, consider anterolateral ischemia Abnormal ECG Confirmed by MATTHEW VARGAS, AMAIRANI ([id number]), image editor DEMI FREEMAN ([id number]) on 12/04/2021 9:50:56 AM Referred By: [email or web address] Confirmed By:AMAIRANI CASTRO MD
--- NOTE | 2021-12-03 12:10 | EDS_ITS ---
HPI History of Present Illness Chief Complaint: Confusion Detail of Chief Complaint: Decreased mental status Informant: patient and spouse/S.O. Onset/Context/Timing Onset: Today Context: Gradual Onset Timing: Continuous Current Severity: Moderate Maximum Severity: Moderate Narrative Narrative: 71-year-old female with history of hypothyroidism, diabetes, mental health disorder and hypertension. states that she has had decreased mental status today. She has been delusional speaking about her mother and saying things that are inappropriate. Says she has had nausea and vomiting. Decreased oral intake. No fever or headache. She was seen a week ago in this emergency department diagnosed with vertigo and has been intermittently on Antivert. She denies any headache, chest pain, shortness of breath or abdominal pain. Prior similar symptoms: No Recent Illness/Hospitalization: No PFSH [facility] Medical History Allergic rhinitis Back pain due to injury Breast lump Chronic mental illness Chronic renal failure, stage 3a Cognitive dysfunction Depression Fall at home Fracture of hip, right, closed Goiter History of blood transfusion History of revision of total replacement of right hip joint History of uterine fibroid HTN (hypertension) Hypertension Hypothyroidism Hypothyroidism Instability of right hip joint Kidney stones Malnourished Neuropathy Obesity (BMI 30-39.9) Osteoarthritis Physical debility Post-menopausal Posterior tibial tendinitis, left leg 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 02/19/13 [History Last Taken 06/06/21] cholecalciferol (vitamin D3) 50 mcg (2,000 unit) tablet 2,000 unit PO DAILY SUPPLEMENT 01/22/17 [History Last Taken 06/06/21] loratadine-pseudoephedrine ER 10 mg-240 mg tablet,extended [id number] (Claritin -D 24 Hour) 1 tab PO QAM PRN Sinus Symptoms 01/22/17 [History Last Taken 06/05/21] metoprolol tartrate 50 mg tablet 25 mg PO DAILY BP 08/17/21 [History Last Taken Unknown] polysaccharide iron complex 150 mg iron capsule (Ferrex) 150 mg PO DAILY supplement 09/20/21 [History Last Taken Unknown] acetaminophen 500 mg tablet 1,000 mg PO Q8 PRN fever or pain #0 tabs 09/29/21 [Rx Last Taken Unknown] duloxetine 60 mg capsule,delayed release 60 mg PO DAILY #30 caps 09/29/21 [Rx Last Taken Unknown] levothyroxine 150 mcg tablet 150 mcg PO DAILY THYROID #30 tabs 09/29/21 [Rx Last Taken 06/06/21] tramadol 50 mg tablet 50 mg PO Q6H PRN pain 7 days #28 tabs 09/29/21 [Rx Last Taken Unknown] meclizine 25 mg tablet 25 mg PO Q8H PRN PRN Dizziness #20 tabs 11/26/21 [Rx Last Taken Unknown] Allergy/AdvReac Type Severity Reaction Status Date / Time amoxicillin trihydrate AdvReac Vomiting Verified 12/03/21 11:42 [From Augmentin] hydrocodone AdvReac Vomiting Verified 12/03/21 11:42 ANESTHESIA AdvReac Unknown Uncoded 12/03/21 11:42 Family History Mother Arthritis Cancer Sister Arthritis Diabetes Father Bleeding disorder Heart disease Hypertension Son Bleeding disorder Surgical History H/O lumpectomy H/O spinal fusion H/O thyroidectomy History of bilateral knee replacement History of right hip hemiarthroplasty History of spinal fusion History of tonsillectomy and adenoidectomy Social History household members: spouse Smoking Status: Never smoker alcohol intake: current alcohol intake frequency: a few times a month substance use type: does not use ROS ROS ED ROS Narrative Nausea and vomiting. Decreased intake. Delusions. Review of Systems ROS Unobtainable: Denies due to encephalopathy Constitutional Constitutional ED: Denies chills or fever(s) Eyes Eyes: Denies blurry vision ENT ENT ED: Denies ear pain Cardiovascular Cardiovascular: Denies chest pain Respiratory/Chest Respiratory/Chest: Denies cough or dyspnea Gastrointestinal Gastrointestinal: Reports nausea and vomiting; Denies abdominal pain, constipation, diarrhea or melena Genitourinary Genitourinary ED: Denies dysuria or hematuria Musculoskeletal Musculoskeletal: Denies arthralgias Integumentary Denies abscess Neurologic Neurologic: Denies headache(s) Psychiatric Psychiatric: Denies anxiety or depression Endocrine Endocrinology: Denies cold intolerance Hematologic/Lymphatic Hematologic/Lymphatic: Reports none Allergic/Immunologic Allergic/Immunologic ED: Denies mouth swelling or tongue swelling EXAM Physical Exam Narrative Exam Narrative: 71-year-old female no acute distress. Vital signs stable afebrile. Pulse ox 100% on room air no hypoxia. seated at bedside. H EENT exam very dry mucous membranes. Otherwise unremarkable. No signs of trauma. Pupils round reactive light. Extra motions are intact. Normal speech. Neck nontender no lymphadenopathy. Lungs clear to auscultation bilaterally. Heart regular rhythm rate about 80 no murmur. Abdomen soft nontender. Moving all 4 extremities. Neurologically she is awake. She thought it was Saturday and Saturday she knew it was November. She knew the year but could not remember the president. She did know she was in the emergency department. She is moving all 4 extremities. Const Vital Signs: 12/03/21 11:34 Temperature 96.5 F L Temperature Source Temporal Pulse Rate 78 Respiratory Rate 18 Blood Pressure 129/92 H Blood Pressure Mean 104 Pulse Ox 100 Oxygen Delivery Method Room Air Positive well nourished and well developed; Negative for obese, cachectic, contractures or unkempt General Appearance ED: well developed and NAD; Negative for unkempt, cachectic, contractures, cyanotic or diaphoretic Nutritional Appearance: Negative for cachectic or obese HEENT Reports dry mucous membranes; Denies moist mucous membranes Negative for trauma or tenderness Mouth ED: Yes dry mucous membranes Mouth: dry mucous membranes Eyes PERRL and EOMs intact bilaterally General Eye ED: Negative for pale conjunctiva or scleral icterus Neck no lymphadenopathy, supple and no JVD General: Negative for tenderness Lymph Lymphatic: Negative for other Chest Wall inspection of chest normal and palpation of chest normal Resp normal respiratory effort and clear to auscultation bilaterally Effort and Inspection: Negative for retractions or pain with movement Auscultation: Negative for rales, rhonchi or wheezes Cardio regular rate, regular rhythm, S1 normal heart sound, S2 normal heart sound and no murmurs Palpation: Negative for palpable S3 Rate: Negative for bradycardia Rhythm: Negative for abnormal rhythm GI normal to inspection, nondistended, normoactive bowel sounds, non-tender, non- distended and no masses Inspection: Negative for abdominal distention Auscultation: normoactive bowel sounds Palpation: soft; Negative for tender or guarding Back/Spine no CVA tenderness General Back: Negative for CVA tenderness Cervical Spine: Negative for cervical spine tenderness Thoracic Spine / Upper Back: Negative for thoracic spinal tenderness Lumbar Spine / Lower Back: Negative for lumbar spinal tenderness Extremity normal to inspection General Extremety ED: Negative for edema or tenderness General Extremity: Negative for edema Neuro oriented x3 Neuro Narrative: She knew where she was at and the month and year she did not know the day. She could not remember the president night states. Sensorium / Orientation: alert and orientation impaired; Negative for lethargic or stuporous Motor Exam: strength 5/5 throughout Psych mental status grossly normal Appearance: Negative for unkempt Attitude: No agitated Mood & Affect: Negative for depressed, anxious or tearful Skin no rashes or lesions noted and no wounds Lesions: No lesion noted Rashes: No rashes noted Trauma: Negative for abrasion Wounds: Negative for wounds noted MDM MDM MDM Narrative Medical decision making narrative: 71-year-old female with mental status change. Clinically appears dehydrated. She had a recent CAT scan a week ago which was consistent with chronic changes. She has no focal motor deficits I do not think she needs another CAT scan. Screening labs have been obtained. She will be treated with Zofran and IV fluids. Repeat exam at 2:10 PM patient does look better after the first liter of IV fluids. I will give her a second liter. has discussed her test results. Given her elevated BUN and creatinine, acute kidney injury and dehydration along with her elevated anion gap I am going to admit her. Have already spoken to the hospitalist. Dr. Katie Foy wanted me to obtain an ABG which is being ordered. The patient will be admitted. Lab Data Attestation: I reviewed the patient's lab results. Lab results narrative: CBC shows a normal white count of 7 H&H of 12.9 and 42. Platelets of 211. Electrolytes show potassium 3.3 gap of 25. With positive urine ketones. BUN of 20 creatinine 1.2. Glucose 176. Liver enzymes unremarkable. Urinalysis shows no nitrates. No white or red cells. Labs: Laboratory Results - last 24 hr 1012/03/21 12/03/21 11:43 11:43 12:55 WBC 7.2 RBC 4.79 Hgb 12.9 Hct 42.4 MCV 88.5 MCH 26.9 L MCHC 30.4 L RDW Std Deviation 55.1 H RDW Coeff of Rita 17.0 H Plt Count 211 MPV 10.9 Immature Gran % (Auto) 1.700 H Neut % (Auto) 79.4 H Lymph % (Auto) 4.7 L Cook % (Auto) 5.8 Eos % (Auto) 7.7 H Baso % (Auto) 0.7 Absolute Neuts (auto) 5.7 Absolute Lymphs (auto) 0.34 L Nucleated RBC % 0 Differential Comment SCANNED Sodium 141 Potassium 3.3 L Chloride 102 Carbon Dioxide 14.0 L Anion Gap 25 H BUN 20 H Creatinine 1.20 H Estim Creat Clear Calc 45.83 Est GFR (MDRD) Af Amer 57 L Est GFR (MDRD) Non-Af 47 L BUN/Creatinine Ratio 16.7 Glucose 176 H Calcium 8.6 Total Bilirubin 1.60 H AST 43 H ALT 25 Alkaline Phosphatase 75 Total Protein 6.5 Albumin 3.0 L Globulin 3.5 Albumin/Globulin Ratio 0.9 Urine Color Yellow Urine Clarity Clear Urine pH 6.5 Ur Specific Hamilton 1.015 Urine Protein 30 H Urine Glucose (UA) Normal Urine Ketones 150 A* Urine Occult Blood Negative Urine Nitrite Negative Urine Bilirubin 1 H Urine Urobilinogen 4 H Ur Leukocyte Esterase 25 H Urine RBC 0 SEEN Urine WBC 0 SEEN Ur Squamous Epith Cells 0 SEEN Urine Bacteria 2+ Urine Mucus 0 SEEN ABG Data ABG results: ABG 12/03/21 14:31 Specimen Type ART Sample Site R Radial pH 7.44 Bicarbonate Actual 13.2 L Total CO2 14 Base Excess -11 L O2 Saturation 99 O2 % 21 ABG pCO2 19.4 L ABG pO2 110 H Ang Test Positive O2 Delivery Device Room Air Radiography Chest X-Ray - ED: 1 View, Read by ED Physician, Read by Radiologist, Heart, Lungs, Mediastinum, Bony Structures, No Acute Disease and Chronic Changes Diagnostic Testing: Clinical Impression(s) from Imaging Studies Chest X-Ray 12/03/21 12:27 IMPRESSION: Normal x-ray examination of the chest. Electronically Signed: Luis Fernando Larose MD at 12:38 EDT , Chest x-ray, portable, single view shows no acute abnormality. Normal cardiac silhouette and mediastinum. No infiltrates. Interpreted both by myself and radiologist. Rhythm Strip Rhythm Strip: Sinus Tach Rate: 108 Ectopy: None EKG Initial EKG: Attestation: I personally reviewed and interpreted this EKG as follows: Interpretation: Sinus Rhythm, No Acute Injury Pattern and Sinus Tachycardia Comments: Sinus tachycardia rate of 108. No signs of KS. She does have inverted T waves in leads V2, V3, V4, V5, V6 which appear to be new. Discharge Plan Dx/Rx/DC Orders Clinical Impression: Acute confusion, Acute dehydration, History of diabetes mellitus, Ketosis, Acute kidney injury Disposition Disposition: Acute Care Hospital [facility]
[2021-12-03 12:25] LABS: Absolute Lymphocyte Count 0.34 X10^3/uL (0.83-4.51); Absolute Neutrophil Count 5.7 X10^3/uL (2.0-7.7); Basophil# 0.05 X10^3/uL; Basophil% 0.7 % (0-1); Eosinophil# 0.56 X10^3/uL; Eosinophils% 7.7 % (0-5); Hematocrit 42.4 % (37-47); Hemoglobin 12.9 g/dL (12.0-15.0); Lymphocyte # 0.34 X10^3/ul (0.83-4.51); Lymphocyte % 4.7 % (19-41); Mean Corp Hgb Conc 30.4 g/dL (32-36); Mean Corpuscular Hgb 26.9 pg (27.0-32.0); Mean Corpuscular Volume 88.5 fL (81-99); Mean Platelet Vol. 10.9 fl (6.2-12.0); Monocyte# 0.42 X10^3/uL; Monocyte% 5.8 % (0-10); NRBC Flagged by Analyzer 0 % (0-5); Neutrophil # 5.74 X10^3/uL (2.7-7.7); Neutrophil % 79.4 % (47-70); POSITIVE DIFFERENTIAL YES; POSITIVE MORPHOLOGY YES; Platelet Count 211 K/mm3 (150-450); RBC Distribution Width SD 55.1 fl (35.1-43.9); Red Blood Count 4.79 M/mm3 (4.2-5.4); White Blood Count 7.2 K/mm3 (4.4-11.0)
--- NOTE | 2021-12-03 12:27 | RAD_ITS ---
STUDY: X-RAY CHEST REASON FOR EXAM: Female, 71 years old. confusion TECHNIQUE: Single AP portable view of the chest. COMPARISON: 06/06/2021 FINDINGS: The lungs are clear and expanded. There is no demonstrated pleural abnormality. Normal size heart. Normal mediastinum and nathalia. Normal visualized pulmonary arteries. Normal visualized aortic arch and descending thoracic aorta. Normal visualized thoracic spine. Normal visualized ribs, clavicles, and shoulders. There is no demonstrated abnormality of the visualized soft tissue structures of the upper abdomen. RAD/Chest 1 View (Portable) IMPRESSION: Normal x-ray examination of the chest. Electronically Signed: Luis Fernando Larose MD at 12:38 EDT ,
[2021-12-03] MEDS: 0.9% Normal Saline 1,000 ML 1000 ML IV (12:29)
[2021-12-03 12:30] LABS: Differential Indicated SCAN CRITERIA MET
[2021-12-03] MEDS: Ondansetron 4 MG/2 ML Vial IV ×2 (12:30→23:21)
[2021-12-03 12:33] LABS: ALB/GLOB Ratio 0.9 RATIO (0.9-2.4); AST(SGOT) 43 U/L (15-37); Alanine Aminotransfer ALT/SGPT 25 U/L (13-56); Alkaline Phosphatase 75 U/L (45-117); Anion Gap 25 (5-15); BUN 20 mg/dL (7-18); BUN/Creat Ratio 16.7 RATIO (10-20); Calcium,Total 8.6 mg/dL (8.5-10.1); Chloride 102 mmol/L (98-107); EST Glomerular Filtration Rate 47 mL/min (>60); Est Glom Filt Rate - Afr Amer 57 mL/min (>60); Estimated Creatinine Clearance 45.83 ml/min; Globulin 3.5 g/dL (2.2-4.2); Glucose 176 mg/dL (74-106); Potassium 3.3 mmol/L (3.5-5.1); Protein, Total 6.5 g/dL (6.4-8.2); Sodium Level 141 mmol/L (136-145)
[2021-12-03 12:47] LABS: Differential Comment SCANNED
[2021-12-03 12:58] LABS: Mucous, Urine 0 SEEN /hpf (<or=2+); Red Blood Cells-Urine 0 SEEN /hpf (0-5); Squamous Epithelial Cells - UA 0 SEEN /hpf (5-10); White Blood Cells 0 SEEN /hpf (0-5)
[2021-12-03 13:13] LABS: Color, Urine Yellow (Yellow); Glucose, Dipstick Normal (Normal); Leukocyte Esterase-Dipstick 25 /ul (Negative); Nitrite-Dipstick Negative (Negative); Occult Blood-Urine Negative /ul (Negative); Protein-Dipstick 30 mg/dl (Negative); Specific Gravity, Urine 1.015 (1.002-1.030); Urine Clarity Clear (Clear); Urine Urobilinogen 4 mg/dl (Normal); Urine pH 6.5 (5.0 - 8.0)
[2021-12-03 13:16] LABS: Urine Bilirubin Dipstick 1 mg/dL (Negative)
[2021-12-03 13:17] LABS: Ketone-Dipstick 150 mg/dl (Negative)
[2021-12-03 13:29] LABS: Bacteria 2+ /hpf (None Seen)
--- NOTE | 2021-12-03 14:10 | NURSING ---
HOSPITALIST FOR DR BRIZUELA
--- NOTE | 2021-12-03 14:12 | HP.PCM.HOS_ITS ---
HPI - General General Date of Admission: 12/03/21 Date of Service: 12/03/21 Chief Complaint: Duration/generalized debility HPI Narrative KULDEEP AGUIRRE, is a 71 F who presented to the emergency department at [facility] on 12/03/2021 with a chief complaint of altered mental status and delusions. Evidently the patient began having some change in her mental status last evening which was worse this morning. She was speaking about her mother saying things that were not appropriate not realizing her mother was and she a significantly long time ago. She has had a little bit of vomiting but the patient denies any nausea. Her provides a significant portion of the history. She was in the emergency department on 11/26/2021 complaining of vertiginous symptoms and was sent home on meclizine. She has had decreased p.o. intake for about a week or 2. The patient has no specific complaints with regards to her reasoning for her decrease in oral intake and indicates she just does not feel well. Her states its been at least 2 weeks and she is had a normal full meal. She has been having issues since May when she fractured her left hip. She then had 9 dislocations and had to have a revision in September and was discharged to the rehab facility here at the hospital and then was discharged to the [facility] for ongoing rehab. She has been home for a while now however. Again, she has no specific complaints herself. Her does also indicates she has been markedly weak as well. Vital signs on presentation emergency department demonstrated a temperature of 97.5, blood pressure 139/87, respiratory rate of 19, pulse ox was 100% on room air. CBC was overall unremarkable. We did obtain an ABG based on her abnormal BMP which showed a pH of 7.44, PCO2 of 19.4, PO2 of 110 on room air. Her chemistry panel on presentation showed a normal sodium however potassium was 3.3, her serum bicarb was 14, her anion gap was 25, a serum creatinine of 1.20 with her baseline serum creatinine appearing to be between 0.7 and 0.9. Her serum glucose was 176, her total bilirubin was 1.6 and her AST was mildly elevated at 43 with a normal ALT. Her urine does not show signs of infection however she has markedly elevated ketones at 150 with bilirubin and urobilinogen. On exam she appears extremely dry and dehydrated. Her EKG shows normal sinus rhythm with new T wave inversions in the lateral leads when compared to previous. She was given IV fluids in the emergency department and treated with IV Zofran x1 dose. [facility] Medical History Allergic rhinitis Back pain due to injury Breast lump Chronic mental illness Chronic renal failure, stage 3a Cognitive dysfunction Depression Fall at home Fracture of hip, right, closed Goiter History of blood transfusion History of revision of total replacement of right hip joint History of uterine fibroid HTN (hypertension) Hypertension Hypothyroidism Hypothyroidism Instability of right hip joint Kidney stones Malnourished Neuropathy Obesity (BMI 30-39.9) Osteoarthritis Physical debility Post-menopausal Posterior tibial tendinitis, left leg 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 02/19/13 [History Last Taken 06/06/21] cholecalciferol (vitamin D3) 50 mcg (2,000 unit) tablet 2,000 unit PO DAILY SUPPLEMENT 01/22/17 [History Last Taken 06/06/21] loratadine-pseudoephedrine ER 10 mg-240 mg tablet,extended [id number] (Claritin-D 24 Hour) 1 tab PO QAM PRN Sinus Symptoms 01/22/17 [History Last Taken 06/05/21] metoprolol tartrate 50 mg tablet 25 mg PO DAILY BP 08/17/21 [History Last Taken Unknown] polysaccharide iron complex 150 mg iron capsule (Ferrex) 150 mg PO DAILY supplement 09/20/21 [History Last Taken Unknown] acetaminophen 500 mg tablet 1,000 mg PO Q8 PRN fever or pain #0 tabs 09/29/21 [Rx Last Taken Unknown] duloxetine 60 mg capsule,delayed release 60 mg PO DAILY #30 caps 09/29/21 [Rx Last Taken Unknown] levothyroxine 150 mcg tablet 150 mcg PO DAILY THYROID #30 tabs 09/29/21 [Rx Last Taken 06/06/21] tramadol 50 mg tablet 50 mg PO Q6H PRN pain 7 days #28 tabs 09/29/21 [Rx Last Taken Unknown] meclizine 25 mg tablet 25 mg PO Q8H PRN PRN Dizziness #20 tabs 11/26/21 [Rx Last Taken Unknown] Allergy/AdvReac Type Severity Reaction Status Date / Time amoxicillin trihydrate AdvReac Vomiting Verified 12/03/21 11:42 [From Augmentin] hydrocodone AdvReac Vomiting Verified 12/03/21 11:42 ANESTHESIA AdvReac Unknown Uncoded 12/03/21 11:42 Family History Mother Arthritis Cancer Sister Arthritis Diabetes Father Bleeding disorder Heart disease Hypertension Son Bleeding disorder Surgical History H/O lumpectomy H/O spinal fusion H/O thyroidectomy History of bilateral knee replacement History of right hip hemiarthroplasty History of spinal fusion History of tonsillectomy and adenoidectomy Social History household members: spouse Smoking Status: Never smoker alcohol intake: current alcohol intake frequency: a few times a month substance use type: does not use ROS Constitutional Constitutional: Reports anorexia, change in weight, fatigue, malaise and weakness; Denies chills, fever(s), night sweats or other Eyes Eyes: Denies blurry vision, change in eye color, change in vision, discharge from eye(s), double vision, erythema, eye pain, loss of vision or other ENT HEENT: Reports other Details: Dry mouth ; Denies abnormal hearing, dysphagia, ear pain, epistaxis, headache(s), hearing loss, nasal congestion, nasal discharge, post nasal drip, sinus pressure or sore throat Cardiovascular Cardiovascular: Denies chest pain, claudication, dyspnea on exertion, edema, lightheadedness, orthopnea, palpitations, paroxysmal nocturnal dyspnea, rapid heart rate, syncope or other Respiratory/Chest Respiratory/Chest: Denies cough, dyspnea, excessive phlegm production, hemoptysis, productive cough, shortness of breath at rest, shortness of breath with exertion, wheezing or other Gastrointestinal Gastrointestinal: Reports vomiting; Denies abdominal pain, coffee ground emesis, constipation, diarrhea, dyspepsia, hematemesis, hematochezia, loose stools, melena, nausea or other Genitourinary Genitourinary: Denies burning urination, difficulty urinating, dysuria, hematuria, nocturia, urinary frequency, urinary hesitancy, urinary incontinence, urinary urgency or other Musculoskeletal Musculoskeletal: Reports joint pain and joint stiffness; Denies arthralgias, back pain, joint swelling, myalgias, neck pain or other Neurologic Neurologic: Reports abnormal gait, disequilibrium and dizziness; Denies abnormal speech, confusion, focal weakness, headache(s), numbness, paresthesias, seizure- like activity, seizures, syncope, tingling, tremor(s) or other Psychiatric Psychiatric: Reports depression Endocrine Endocrinology: Denies change in body appearance, cold intolerance, excessive sweating, heat intolerance, polydipsia, polyuria or other Hematologic/Lymphatic Hematologic/Lymphatic: Reports easy bruising; Denies anemia, easy bleeding, lymphadenopathy or other Allergic/Immunologic Allergic/Immunologic: Denies rhinitis, hives, eczemia, asthma or other Vital Signs Vital Signs Vital Signs: 12/03/21 11:34 Temperature 96.5 F L Temperature Source Temporal Pulse Rate 78 Respiratory Rate 18 Blood Pressure 129/92 H Blood Pressure Mean 104 Pulse Ox 100 Oxygen Delivery Method Room Air Weight Weight: 80.8 kg Body Mass Index (BMI) 25.5 Physical Exam Const alert Constitutional Narrative: Elderly white female sitting up in bed, at bedside, patient appears older than stated age, oriented to self, place but confused on time General Appearance: cooperative Orientation / Consciousness: confused HEENT normocephalic, head/scalp atraumatic and hearing grossly normal bilaterally HEENT Narrative: Mucous membranes are extremely dry with dried mucus on the posterior oropharynx as well as her tongue, dentition is poor, Mallampati 2 Eyes PERRL, EOMs intact bilaterally and conjunctivae normal Eyes Narrative: Scleral icterus Neck no lymphadenopathy, supple, no JVD and no carotid bruits Neck Narrative: Trachea midline, no thyroid enlargement Resp normal respiratory effort, no retractions, no use of accessory muscles and clear to auscultation bilaterally Auscultation: Negative for crackles, rales, rhonchi or wheezes Cardio regular rate, regular rhythm, S1 normal heart sound, S2 normal heart sound, no murmurs, no rub, no gallops and no clicks Cardio Narrative: Intermittent ectopic beats with PVCs GI normal to inspection, nondistended, normoactive bowel sounds, soft to palpation and non-tender; Negative for hepatosplenomegaly Extremity Extremity Narrative: Trace left lower extremity edema, no right lower extremity edema, no cyanosis or clubbing Skin no wounds, No skin turgor normal, no jaundice, no petechiae and no mottling Skin Narrative: Skin on legs is extremely dry and flaking, tented skin turgor, ecchymosis on left knee and right upper extremity Hair: brittle and general thinning Neuro CN's II-XII intact bilaterally, moves all extremities and no focal motor deficits Neuro Narrative: Speech is normal but somewhat delayed in response time Psych Psych Narrative: Affect is flattened mood seems depressed Mood & Affect: depressed Results Lab / Micro Data Result Diagrams: 12/03/21 11:43 12/03/21 11:43 Labs: Laboratory Results - last 24 hr 12/03/21 11:43: WBC 7.2, RBC 4.79, Hgb 12.9, Hct 42.4, MCV 88.5, MCH 26.9 L, MCHC 30.4 L, RDW Std Deviation 55.1 H, RDW Coeff of Rita 17.0 H, Plt Count 211, MPV 10.9, Immature Gran % (Auto) 1.700 H, Neut % (Auto) 79.4 H, Lymph % (Auto) 4.7 L, Edmonson % (Auto) 5.8, Eos % (Auto) 7.7 H, Baso % (Auto) 0.7, Absolute Neuts (auto) 5.7, Absolute Lymphs (auto) 0.34 L, Nucleated RBC % 0, Differential Comment SCANNED 12/03/21 11:43: Sodium 141, Potassium 3.3 L, Chloride 102, Carbon Dioxide 14.0 L , Anion Gap 25 H, BUN 20 H, Creatinine 1.20 H, Estim Creat Clear Calc 45.83, Est GFR (MDRD) Af Amer 57 L, Est GFR (MDRD) Non-Af 47 L, BUN/Creatinine Ratio 16.7, Glucose 176 H, Calcium 8.6, Total Bilirubin 1.60 H, AST 43 H, ALT 25, Alkaline Phosphatase 75, Total Protein 6.5, Albumin 3.0 L, Globulin 3.5, Albumin/Globulin Ratio 0.9 12/03/21 12:55: Urine Color Yellow, Urine Clarity Clear, Urine pH 6.5, Ur Specific Thomson 1.015, Urine Protein 30 H, Urine Glucose (UA) Normal, Urine Ketones 150 A*, Urine Occult Blood Negative, Urine Nitrite Negative, Urine Bilirubin 1 H, Urine Urobilinogen 4 H, Ur Leukocyte Esterase 25 H, Urine RBC 0 SEEN, Urine WBC 0 SEEN, Ur Squamous Epith Cells 0 SEEN, Urine Bacteria 2+, Urine Mucus 0 SEEN Rhythm Strip Rhythm Strip: Sinus Tach Rate: 108 Ectopy: None Radiology Impression Chest X-Ray 12/03/21 12:27 IMPRESSION: Normal x-ray examination of the chest. Electronically Signed: Luis Fernando Larose MD at 12:38 EDT , Assessment & Plan Assessment/Plan (1) Acute kidney injury: (2) Acute dehydration: (3) Toxic metabolic encephalopathy: (4) Hypokalemia: (5) High anion gap metabolic acidosis: (6) Ketosis: (7) Hyperbilirubinemia: (8) Debility: (9) Severe malnutrition: (10) Abnormal EKG: PLAN: Plan Anion gap elevated metabolic acidosis secondary to starvation ketosis -Repeat BMP is pending for reevaluation -BG does not show acidosis and patient seems to be compensating from a respiratory standpoint at this time -Hydrate with D5 half-normal saline and reassess 6 BMP in a.m. -Encourage p.o. intake Toxic/metabolic encephalopathy -May be related to meclizine that was ordered for dizziness however patient also with several metabolic abnormalities -Continue to monitor -A.m. TSH JACOB secondary to severe dehydration -Serum creatinine is 1.2-0.3 above baseline -Serum creatinine at baseline is 0.7-0.8 based on previous laboratory data -Hydration with D5 half-normal saline at 70 cc/h x 2 bags -She has already saved 1 L of normal saline in the emergency department -Avoid nephrotoxins -BMP in a.m. Hypokalemia -IV potassium placement -Repeat in a.m. -Check a.m. magnesium and phosphorus levels Abnormal EKG -Current EKG with new T wave inversions in the inferior lateral leads -Patient with no active chest pain and symptoms are fairly nonspecific -We will cycle cardiac enzymes -Check echocardiogram Hyperbilirubinemia -Anticipate this is related to severe ID hydration -Repeat in a.m. after hydration has been received Debility -Patient with 2 recent hip surgeries for replacement then revision secondary to recurrent dislocations -PT/OT consultation -May need placement at discharge Left lower extremity edema -Check lower extremity Dopplers to rule out PE with more sedentary lifestyle and recent hip surgeries Dry skin -Eucerin cream twice daily to lower extremities History of rheumatoid arthritis -Continue home hydroxychloroquine and leflunomide -Continue home as needed Ultram Hypertension -Continue home metoprolol Depression -Continue duloxetine DVT prophylaxis -Start Lovenox -SCDs CODE STATUS -Full code as per discussion with on admission Charges/Coding Visit Charges Inpatient E&M: 79595 Init Hosp L3
[2021-12-03 14:35] LABS: Allen Test Positive; Base Excess -11 mmol/L (-2 to +2); Bicarbonate 13.2 mmol/L (22-26); Blood Gas Specimen Type ART; FI02 21; O2 Delivery Device Room Air; PO2 110 mmHG (75-100); SITE R Radial; SO2 99 % (95-99); Total Carbon Dioxide 14 mmol/L; pCO2 19.4 mmHg (35-45); pH 7.44 (7.35-7.45)
--- NOTE | 2021-12-03 14:43 | NURSING ---
CAROLYN RAMOS MS CHANGE, DEHYDRATION, JACOB, KETOSIS, HX OF DM
--- NOTE | 2021-12-03 14:51 | ECHOD_ITS ---
Reason For Study: Other Procedure This was a 2D Doppler, Color Flow transthoracic echocardiogram. Exam performed portable in patient room. Left Ventricle Normal LV size. Left ventricular systolic function is normal. The estimated ejection fraction is 55 %. Stage 1 diastolic dysfunction. No regional wall motion abnormalities noted. Right Ventricle Normal RV size. Normal systolic function. Atria Normal left atrium. Normal right atrium. Mitral Valve Normal mitral valve. Tricuspid Valve Normal tricuspid valve. Mild (1+) tricuspid valve insufficiency. Pulmonary artery systolic pressure is 27 mmHg. Aortic Valve The aortic valve is not well visualized. Pulmonic Valve The pulmonic valve is not well visualized. Great Vessels Normal aortic root. The pulmonary artery is normal size. Normal inferior vena cava. Pericardium/Pleural No pericardial effusion. MMode/2D Measurements & Calculations LVIDd: 3.5 cm IVSd: 0.89 cm Ao root diam: 3.3 cm LVIDs: 2.1 cm LVPWd: 0.97 cm RVDd: 2.9 cm FS: 41.8 % LAV(MOD-bp): 14.2 ml LA A4 area: 6.8 cm2 LA dimension(2D): 2.4 cm LAV(MOD-bp) Indexed: 7.3 ml/m2 LAV(MOD-sp2): 16.9 ml LAV(MOD-sp4): 8.8 ml RA A4 area: 5.3 cm2 Doppler Measurements & Calculations MV E max dontae: 36.0 cm/sec Lat Peak E' Dontae: 8.5 cm/sec Med Peak E' Dontae: 5.4 cm/sec MV A max dontae: 46.5 cm/sec E/E' lat: 4.3 E/E' med: 6.6 MV E/A: 0.77 Ao V2 max: 93.7 cm/sec LV V1 max: 66.5 cm/sec PA V2 max: 99.0 cm/sec Ao max P.5 mmHg LV V1 max P.8 mmHg Ao V2 mean: 68.8 cm/sec Ao mean P.1 mmHg Ao V2 VTI: 14.6 cm TR max dontae: 244.0 cm/sec TR max P.8 mmHg ECHO/Echo Complete Interpretation Summary Normal LV size. Left ventricular systolic function is normal. The estimated ejection fraction is 55 %. Pulmonary artery systolic pressure is 27 mmHg. Stage 1 diastolic dysfunction. The study was technically difficult. Ordering Physician: Argenis Foy Referring Physician: Billy Church Performed By: Daniela Patterson RDCS, RVT
--- NOTE | 2021-12-03 14:51 | VDLE_ITS ---
Reason For Study: Swelling RIGHT LEFT Acute deep vein thrombosis is noted in the Acute deep vein thrombosis is noted in the CFV, FV, PopV and T/P Trunk. CFV, FV, PopV, T/P Trunk, PTV, amd PeroV. Minimal flow noted in the PopV. Minimal flow noted in the PopV Unable to visualize calf veins due to patient Acute superficial vein thrombosis is noted positioning. in the GSV from groin to knee. Acute superficial vein thrombosis is noted in the GSV from groin to distal thigh. Procedure This is a venous duplex using B-mode, color flow and spectral Doppler. Exam performed portable in patient room. Technically difficult and limited examination due to patient positioning and unable to tolerate exam. A preliminary report was called and/or faxed to [facility]. VL/Venous Duplex US - Oswald Extrem Interpretation Summary Acute deep vein thrombosis is noted in the right common femoral vein, right fem oral vein, right popliteal vein. Unable to visual below the knee. Acute deep vein thrombosis is noted in the left common femoral vein, left femor al vein, left popliteal vein, left tibio-peroneal trunk vein, left posterior tibial vein, lef t peroneal vein. Acute superficial vein thrombosis is noted in the right great saphenous vein. Acute superficial vein thrombosis is noted in the left great saphenous vein. Ordering Physician: Argenis Foy Referring Physician: Billy Church Performed By: Tiana Lara RVT
[2021-12-03 14:59] VITALS: BP 118/81; PULSE 87; RESP 16; TEMP 36.3; O2SAT 100
[2021-12-03 15:54] VITALS: BP 135/102; PULSE 90; RESP 18; TEMP 36.4; O2SAT 100
[2021-12-03 16:04] VITALS: BMI 24.3
[2021-12-03 16:10] LABS: BUN 21 mg/dL (7-18); Creatinine, Serum 1.15 mg/dL (0.55-1.02); EST Glomerular Filtration Rate 49 mL/min (>60); Estimated Creatinine Clearance 47.82 ml/min; Glucose 171 mg/dL (74-106)
[2021-12-03 16:11] LABS: Anion Gap 20 (5-15); BUN/Creat Ratio 18.3 RATIO (10-20); Calcium,Total 8.7 mg/dL (8.5-10.1); Chloride 106 mmol/L (98-107); Est Glom Filt Rate - Afr Amer 60 mL/min (>60); Potassium 3.2 mmol/L (3.5-5.1); Sodium Level 143 mmol/L (136-145); Troponin-I HS 25 pg/mL (3.0-54.0)
[2021-12-03 16:36] VITALS: PULSE 82
[2021-12-03] MEDS: Dext 5%-0.45% NS 1,000 ML 70 ML IV (16:58)
[2021-12-03] MEDS: Potassium Chloride 10mEq/100mL 10 MEQ/100 ML IV.SOLN. 100 MEQ IV BOLUS ×4 (17:01→20:23)
[2021-12-03] MEDS: Hydroxychloroquine 200 MG Tablet PO (17:16)
[2021-12-03] MEDS: Insulin Lispro 100 UNIT/ML INSULN.PEN SC (17:22)
[2021-12-03 17:50] LABS: Bedside Glucose 165 mg/dL (74-106)
[2021-12-03 18:19] LABS: Troponin-I HS 22 pg/mL (3.0-54.0)
[2021-12-03 18:59] VITALS: PULSE 89
[2021-12-03] MEDS: traMADol 50 MG Tablet PO (20:05)
[2021-12-03 21:54] LABS: Troponin-I HS 27 pg/mL (3.0-54.0)
[2021-12-03] MEDS: Petrolatum 33% Tube 1 APPLIC TOPICAL (22:55)
[2021-12-03 23:04] VITALS: BP 112/89; PULSE 106; RESP 18; TEMP 36.6; O2SAT 97
[2021-12-04] VITALS (10 sets, daily range): BP systolic 75–120; BP diastolic 58–78; PULSE 79–109; RESP 13–18; TEMP 36.4–37; O2SAT 95–100
[2021-12-04] LABS: Bedside Glucose 235 mg/dL (74-106)
[2021-12-04] MEDS: Insulin Lispro 100 UNIT/ML INSULN.PEN SC ×4 (00:45→22:14)
[2021-12-04] MEDS: Dext 5%-0.45% NS 1,000 ML 70 ML IV (04:20)
[2021-12-04] MEDS: Levothyroxine 150 MCG Tablet PO (05:14)
[2021-12-04 06:32] LABS: Absolute Lymphocyte Count 0.47 X10^3/uL (0.83-4.51); Absolute Neutrophil Count 6.6 X10^3/uL (2.0-7.7); Basophil# 0.03 X10^3/uL; Basophil% 0.4 % (0-1); Hematocrit 31.9 % (37-47); Lymphocyte # 0.47 X10^3/ul (0.83-4.51); Lymphocyte % 5.9 % (19-41); Mean Corp Hgb Conc 34.5 g/dL (32-36); Mean Corpuscular Hgb 28.1 pg (27.0-32.0); Mean Corpuscular Volume 81.6 fL (81-99); Mean Platelet Vol. 10.3 fl (6.2-12.0); Monocyte# 0.61 X10^3/uL; Monocyte% 7.7 % (0-10); NRBC Flagged by Analyzer 0.5 % (0-5); Neutrophil # 6.58 X10^3/uL (2.7-7.7); Neutrophil % 83.2 % (47-70); POSITIVE DIFFERENTIAL YES; Platelet Count 125 K/mm3 (150-450); RBC Distribution Width CV 16.9 % (11.6-14.6); RBC Distribution Width SD 50.1 fl (35.1-43.9); Red Blood Count 3.91 M/mm3 (4.2-5.4); White Blood Count 7.9 K/mm3 (4.4-11.0)
[2021-12-04 06:56] LABS: ALB/GLOB Ratio 0.9 RATIO (0.9-2.4); AST(SGOT) 29 U/L (15-37); Alanine Aminotransfer ALT/SGPT 21 U/L (13-56); Albumin, Serum 2.7 g/dL (3.2-5.0); Alkaline Phosphatase 61 U/L (45-117); Anion Gap 12 (5-15); BUN 27 mg/dL (7-18); BUN/Creat Ratio 17.9 RATIO (10-20); Calcium,Total 8.2 mg/dL (8.5-10.1); Chloride 109 mmol/L (98-107); Creatinine, Serum 1.51 mg/dL (0.55-1.02); EST Glomerular Filtration Rate 36 mL/min (>60); Est Glom Filt Rate - Afr Amer 44 mL/min (>60); Estimated Creatinine Clearance 36.42 ml/min; Globulin 3.1 g/dL (2.2-4.2); Glucose 183 mg/dL (74-106); Magnesium 1.4 mg/dL (1.6-2.6); Phosphorus 1.4 mg/dL (2.5-4.9); Potassium 2.9 mmol/L (3.5-5.1); Protein, Total 5.8 g/dL (6.4-8.2); Sodium Level 141 mmol/L (136-145); Thyroid Stim Hormone (TSH) 0.73 uIU/mL (0.358-3.74)
[2021-12-04 07:00] LABS: Bedside Glucose 178 mg/dL (74-106)
[2021-12-04 08:50] LABS: Differential Indicated SCAN CRITERIA MET
[2021-12-04 09:32] LABS: Differential Comment SCANNED
[2021-12-04] MEDS: Hydroxychloroquine 200 MG Tablet PO ×2 (09:38→16:30)
[2021-12-04] MEDS: Enoxaparin 40 MG/0.4 ML Syringe SC (09:39)
[2021-12-04] MEDS: Potassium Chloride Oral Soln 20 MEQ/15 ML UDC 60 MEQ PO (09:39)
[2021-12-04] MEDS: Petrolatum 33% Tube 1 APPLIC TOPICAL ×2 (09:41→22:15)
[2021-12-04] MEDS: 0.9% Normal Saline 1,000 ML 999 ML IV (10:05)
--- NOTE | 2021-12-04 10:07 | CASEMGMT ---
Physician feels patient needs a Psychiatric Evaluation. ISAÍAS spoke with ED ISAÍAS Mcknight. Roxanna said she would be able to see patient. ISAÍAS notified physician. Tamara ARTIS
--- NOTE | 2021-12-04 11:50 | CT_ITS ---
STUDY: CT ABDOMEN AND PELVIS WITHOUT CONTRAST REASON FOR EXAM: Female, 71 years old. Abdominal pain -- Oral contrast only. Severe dehydration. RADIATION DOSAGE (If Supplied By Facility): CTDIvol = ( 21.94 ) mGy, DLP = ( 1148.45 ) mGycm TECHNIQUE: Transaxial images were obtained from the dome of the diaphragm to the symphysis pubis without oral contrast, and without intravenous contrast. Sagittal and coronal images were reconstructed. Individualized dose optimization techniques were used for this CT. COMPARISON: Comparison is made with prior examination 09/23/2012. FINDINGS: Minimal left pleural thickening. Coronary artery calcification. Normal liver. Mildly distended gallbladder. Sludge or tiny gallstones are seen within it. Normal spleen. Normal pancreas. There is symmetric enlargement of the adrenal glands suggesting adrenal hyperplasia. 2 mm calculus in the proximal right ureter. Minimal right hydronephrosis. There is a 3 cm cyst in the upper lateral aspect of the left kidney. A punctate calculus is seen in the upper pole calyx of the left kidney. There is also evidence of a 1.2 cm cyst in the posterior midportion of the left kidney. Hiatal hernia with diffuse thickening of the distal esophagus. Soft tissue density is seen in the region of the condyle medial aspect of the stomach. A mass lesion should be ruled out. Normal small intestine. There are multiple colonic diverticula consistent with diverticulosis. The appendix is visualized and appears normal. Normal abdominal aorta. Normal inferior vena cava. Normal retroperitoneum. Distended urinary bladder. Normal abdominal wall. There are degenerative changes of the visualized lumbar spine. Prior laminectomy and interpedicular screw fixation at the L4-L5 level. The patient is status post right total hip replacement. CT/Abdomen/Pel W ORAL Cont Only IMPRESSION: 2 mm calculus in the proximal right ureter with mild right hydronephrosis. Minimal right pleural thickening. Stable left renal cysts. Distended urinary bladder. Increased density in the gallbladder lumen suggestive of either gallstones or sludge Electronically Signed: Brandon Sosa MD at 15:18 EDT ,
--- NOTE | 2021-12-04 12:09 | PCM.PN.HOSP ---
Subjective Subjective Patient refusing to eat. Denies any specific complaints. Denies any nausea or vomiting. Denies abdominal pain however on abdominal exam today she is somewhat tender and pushes my hand away. Is not willing to communicate with me all that much. Seems somewhat depressed. Objective Data Objective Data Vital Signs: Vital Signs Temp Pulse Resp BP Pulse Ox O2 Del Method 98.1 F 79 18 103/74 100 Room Air 12/04/21 11:08 12/04/21 11:08 12/04/21 11:08 12/04/21 11:08 12/04/21 11:08 12/04/21 11:08 Oxygen Delivery Method Room Air Weight: 77 kg Body Mass Index (BMI) 24.3 Intake & Output: Intake and Output for Last 24 Hours 12/02/21 12/03/21 12/04/21 23:59 23:59 23:59 Intake Total 1515 / 1595 875.67 / 875.67 Balance 1515 / 1595 875.67 / 875.67 Lab / Micro Data Result Diagrams: 12/04/21 05:15 12/04/21 05:15 Labs: Laboratory Results - last 24 hr 12/03/21 11:43: WBC 7.2, RBC 4.79, Hgb 12.9, Hct 42.4, MCV 88.5, MCH 26.9 L, MCHC 30.4 L, RDW Std Deviation 55.1 H, RDW Coeff of Rita 17.0 H, Plt Count 211, MPV 10.9, Immature Gran % (Auto) 1.700 H, Neut % (Auto) 79.4 H, Lymph % (Auto) 4.7 L, [place] % (Auto) 5.8, Eos % (Auto) 7.7 H, Baso % (Auto) 0.7, Absolute Neuts (auto) 5.7, Absolute Lymphs (auto) 0.34 L, Nucleated RBC % 0, Differential Comment SCANNED 12/03/21 11:43: Sodium 141, Potassium 3.3 L, Chloride 102, Carbon Dioxide 14.0 L, Anion Gap 25 H, BUN 20 H, Creatinine 1.20 H, Estim Creat Clear Calc 45.83, Est GFR (MDRD) Af Amer 57 L, Est GFR (MDRD) Non-Af 47 L, BUN/Creatinine Ratio 16.7, Glucose 176 H, Calcium 8.6, Total Bilirubin 1.60 H, AST 43 H, ALT 25, Alkaline Phosphatase 75, Total Protein 6.5, Albumin 3.0 L, Globulin 3.5, Albumin/Globulin Ratio 0.9 12/03/21 12:55: Urine Color Yellow, Urine Clarity Clear, Urine pH 6.5, Ur Specific [place] 1.015, Urine Protein 30 H, Urine Glucose (UA) Normal, Urine Ketones 150 A*, Urine Occult Blood Negative, Urine Nitrite Negative, Urine Bilirubin 1 H, Urine Urobilinogen 4 H, Ur Leukocyte Esterase 25 H, Urine RBC 0 SEEN, Urine WBC 0 SEEN, Ur Squamous Epith Cells 0 SEEN, Urine Bacteria 2+, Urine Mucus 0 SEEN 12/03/21 15:27: Sodium 143, Potassium 3.2 L, Chloride 106, Carbon Dioxide 17.0 L, Anion Gap 20 H, BUN 21 H, Creatinine 1.15 H, Estim Creat Clear Calc 47.82, Est GFR (MDRD) Af Amer 60, Est GFR (MDRD) Non-Af 49 L, BUN/Creatinine Ratio 18.3, Glucose 171 H, Calcium 8.7, Troponin I High Sens 25 12/03/21 17:22: POC Glucose 165 H 12/03/21 17:30: Troponin I High Sens 22 12/03/21 21:20: Troponin I High Sens 27 12/03/21 23:40: POC Glucose 235 H 12/04/21 05:15: WBC 7.9, RBC 3.91 L, Hgb 11.0 L, Hct 31.9 L, MCV 81.6 D, MCH 28.1, MCHC 34.5 D, RDW Std Deviation 50.1 H, RDW Coeff of Rita 16.9 H, Plt Count 125 L, MPV 10.3, Immature Gran % (Auto) 2.800 H, Neut % (Auto) 83.2 H, Lymph % (Auto) 5.9 L, [place] % (Auto) 7.7, Eos % (Auto) 0.0, Baso % (Auto) 0.4, Absolute Neuts (auto) 6.6, Absolute Lymphs (auto) 0.47 L, Nucleated RBC % 0.5, Differential Comment SCANNED 12/04/21 05:15: Sodium 141, Potassium 2.9 L, Chloride 109 H, Carbon Dioxide 20.0 L, Anion Gap 12, BUN 27 H, Creatinine 1.51 H, Estim Creat Clear Calc 36.42, Est GFR (MDRD) Af Amer 44 L, Est GFR (MDRD) Non-Af 36 L, BUN/Creatinine Ratio 17.9, Glucose 183 H, Calcium 8.2 L, Phosphorus 1.4 L, Magnesium 1.4 L, Total Bilirubin 1.10 H, AST 29, ALT 21, Alkaline Phosphatase 61, Total Protein 5.8 L, Albumin 2.7 L, Globulin 3.1, Albumin/Globulin Ratio 0.9, TSH 0.73 12/04/21 06:33: POC Glucose 178 H Micro: Microbiology 12/03/21 14:35 Nasal Secretion SARS-CoV-2 Antigen (Rapid) - Final ABG Data ABG results: ABG 12/03/21 14:31 Specimen Type ART Sample Site R Radial pH 7.44 Bicarbonate Actual 13.2 L Total CO2 14 Base Excess -11 L O2 Saturation 99 O2 % 21 ABG pCO2 19.4 L ABG pO2 110 H Ang Test Positive O2 Delivery Device Room Air Radiography Diagnostic Testing: Radiology Impression Chest X-Ray 12/03/21 12:27 IMPRESSION: Normal x-ray examination of the chest. Electronically Signed: Luis Fernando Larose MD at 12:38 EDT , Rhythm Strip Rhythm Strip: Sinus Tach Rate: 108 Ectopy: None Physical Exam Const alert Constitutional Narrative: Elderly white female lying in bed, nursing and professor of nursing at bedside, patient appears older than stated age, oriented to self, place but confused on time, affect is extremely flat, patient is somewhat uncooperative with questioning Orientation / Consciousness: confused HEENT normocephalic, head/scalp atraumatic and hearing grossly normal bilaterally HEENT Narrative: Oropharynx remains dry however improved Eyes PERRL, EOMs intact bilaterally and conjunctivae normal Eyes Narrative: No scleral icterus Neck no lymphadenopathy, supple and no JVD Resp normal respiratory effort, no retractions, no use of accessory muscles and clear to auscultation bilaterally Auscultation: Negative for crackles, rales, rhonchi or wheezes Cardio regular rate, regular rhythm, S1 normal heart sound, S2 normal heart sound, no murmurs, no rub, no gallops and no clicks Cardio Narrative: Intermittent ectopic beats with PVCs GI normal to inspection, nondistended, normoactive bowel sounds, soft to palpation and non-tender; Negative for hepatosplenomegaly Extremity Extremity Narrative: Trace left lower extremity edema, no right lower extremity edema, no cyanosis or clubbing Skin no wounds, No skin turgor normal, no jaundice, no petechiae and no mottling Skin Narrative: Skin on legs is extremely dry and flaking Hair: brittle and general thinning Neuro CN's II-XII intact bilaterally, moves all extremities and no focal motor deficits Neuro Narrative: Speech is normal when patient will communicate however at times ignores questioning Psych Psych Narrative: Affect is flattened mood seems depressed Mood & Affect: depressed Assessment & Plan Assessment/Plan (1) Acute kidney injury: (2) Acute dehydration: (3) Toxic metabolic encephalopathy: (4) Hypokalemia: (5) High anion gap metabolic acidosis: (6) Ketosis: (7) Hyperbilirubinemia: (8) Debility: (9) Severe malnutrition: (10) Abnormal EKG: (11) Hypomagnesemia: (12) Hypophosphatemia: PLAN: Plan Anion gap elevated metabolic acidosis secondary to starvation ketosis -Resolved Toxic/metabolic encephalopathy -Stable -Continue to monitor -TSH within normal limits -Some of her past 70 appears to be related to some depression possibly JACOB secondary to severe dehydration -Serum creatinine is 1.2-->0.3 above baseline on presentation -Serum creatinine actually trended up to 1.5 -Increase IV fluids to 100 cc/h and 1 bolus given -Change IV fluids to D5 LR -Avoid nephrotoxins -BMP in a.m. Hypokalemia -60 mill equivalents p.o. potassium ordered -Repeat in a.m. -Mag level is low replace Hypomagnesemia -2 g IV mag -Repeat mag level in a.m. Hypophosphatemia -Phosphorus replacement -Recheck a.m. Phos level Abnormal EKG -Current EKG with new T wave inversions in the inferior lateral leads -Patient with no active chest pain and symptoms are fairly nonspecific -Cardiac enzymes are normal x3 -Echocardiogram is pending Hyperbilirubinemia -Anticipate this is related to severe ID hydration -Trending down from 1.6-1.1 Debility -Patient with 2 recent hip surgeries for replacement then revision secondary to recurrent dislocations -PT/OT to follow -May need placement at discharge Left lower extremity edema -lower extremity Dopplers are pending to rule out DVT with more sedentary lifestyle and recent hip surgeries Dry skin -Eucerin cream twice daily to lower extremities History of rheumatoid arthritis -Continue home hydroxychloroquine and leflunomide -Continue home as needed Ultram Hypertension -Continue home metoprolol Depression -Continue duloxetine -We will have [facility] psych follow her after she is medically stable Severe malnutrition -Supplements given -Dietitian consult -Add Marinol -Check CT of the abdomen pelvis as patient is not having any specific complaints however exam reveals some abdominal tenderness diffusely -If p.o. intake does not improve may need NG tube for supplementation and this was discussed with patient DVT prophylaxis -Continue Lovenox -SCDs CODE STATUS -Full code as per discussion with on admission Charges/Coding Visit Charges Inpatient E&M: 11585 Subs Hosp L3
[2021-12-04 12:16] LABS: Bedside Glucose 218 mg/dL (74-106)
--- NOTE | 2021-12-04 13:15 | CASEMGMT ---
RN IVONNE Face to Face with patient for initial transition planning/care coordination assessment. RN CM introduced self and role at [facility]. Patient lying in bed, slightly drowsy, at bedside. willing to participate in assessment and is able to answer all questions appropriately. Care providers, pharmacy, and demographics verified. Patient and wish for patient to discharge home with HHC, but willing to go to SNF if needed. states he has no further needs or concerns at this time. CM to follow for discharge planning needs that may arise. PCP: Lnynette Specialists: none Preferred Pharmacy: [facility] Insurance: Pablo CURTIS Prescription Benefit: yes Living Will/HPOA: none LNOK: Living Arrangements: Patient lives with in a single story home with ramp to enter. Patient is normally independent but has been requiring assistance in that last week. Transportation: DME/HHC: Patient has built in shower chair, BSC, grab bars, and walker at home. Patient has had [facility]HC in the past. [facility] to [facility], and [facility]. Will monitor progress with therapy for safe disposition at discharge. Disposition Plan: HHC vs SNF pending progress with therapy. Tiana CONKLIN, RN, CM
[2021-12-04 14:27] LABS: International Normalized Ratio 1.2; Prothrombin Time (Protime)PT. 14.6 SECONDS (11.7-14.9)
[2021-12-04] MEDS: HEPARIN/D5w 25,000 UNITS 25,000 UNITS/250 ML IV.SOLN. 11 UNITS CONT INF (14:39)
[2021-12-04] MEDS: 0.9% Saline Lock 10 ML Syringe IV (14:39)
[2021-12-04] MEDS: Heparin Injection (Vial) 5,000 UNIT/ML VIAL 5000 UNIT IV (14:39)
--- NOTE | 2021-12-04 15:10 | CHAPLAIN ---
Type of Pastoral Visit _x__ Initial Visit ___ Follow-up Visit ___ On-call Visit ___ General Patient Visit ___ Spiritual Assessment ___ Family Conference ___ Bereavement ___ Rapid Response ___ Code Blue ___ Other (describe below) Pastoral Care Referral From _x__ Patient ___ Family ___ Nurse ___ Physician ___ Filter Machine Operator ___ Workers' Compensation Hearings Officer ___ Other (describe below) Sacrament/Intervention ___ Active listening ___ Anointing ___ Samaritan ___ Bereavement ___ Communion ___ Kristy exploration ___ ___ Life review _x__ Prayer ___ Reconciliation ___ Sacrament of Sick _x__ Supportive presence ___ Wedding ___ Other (describe below) Pastoral Comments patient has been seen before in this hospital for previous admissons; pt is weak and unable to carry on a conversation or answer questions; pt spouse is with her and giving her sips of water; pt does not interact with this fisheries specialist except to acknowledge a prayer
[2021-12-04] MEDS: Dronabinol 2.5 MG Capsule PO (16:26)
[2021-12-04] MEDS: Dextrose 5%-Lactated Ringers 1,000 ML 100 ML IV ×2 (16:27→23:59)
--- NOTE | 2021-12-04 16:35 | CM.ED ---
? Social Work Psychiatric Assessment Reason for consult: Mental Health Referral Source: MD Informant(s): Patient and patient's , Cesar Chief Complaint: SW met with patient on 2 occasions today. Patient was asked why people were concerned and should would not respond. Patient was again asked why people were worried about her and again patient shook her head. Patient was asked if she wanted to and patient said no. SW attempted to engage patient in conversation however patient would not respond. ISAÍAS spoke to patient's , Cesar. Cesar said that one week ago patient fell and came to the ED for evaluation and it was determined patient had vertigo. Patient went home after the ED visit last Saturday and has been In bed most of the week.. laying in bed . Patient also has been delusional as she talk about seeing her mom, who has been for 20 years. Patient's said that patient has not been improving and has been on the bed rodriguez and her urine was dark so I thought she had an UTI and she had an UTI. (Per records, patient did not have an UTI). Bill is unsure if patient has been compliant with her medication. Cesar said that patient has been saying things that are incoherent such as trees are moving in the backyard. Cesar said that patient has been on a slow, downward spiral. ISAÍAS spoke to patient and Bill that there is concern about patient being depressed and Bill agreed that he felt her current state may be related to depression. Patient was hospitalized for psych hospitalization in August at [facility] in [place]. Cesar said that patient was given medication for depression. Marital/Social History: for 50 years per Cesar Identified Gender: Female ?Sexual Orientation Heterosexual Living Situation: Patient was living at home with her , Cesar. Support/Resources: Patient's said that he is patient's support along with 2-3 squad guys that they have gotten to know as a result of patient falling. History: No Education and Employment History: Patient graduated college from [employer] in [place]. 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 Mental Health Treatment/History: Patient had no previous mental health diagnosis prior to her psych hospitalization in August at [facility]. Patient's medication is prescribed by her PCP. Patient does not have a psychiatrist. Patient does not have a counselor. One psych hospitalization. It is unknown if patient is med compliant. Triggers/Stressors: Cesar said that patient's stressor is falling Coping Skills: crying and reading Abuse Issues denied Substance Abuse Hx: No? Risk to Self/Others: ? Suicidal: Patient denied ? Homicidal: Patient denied ? Violence: Denied violence to self and others and objects. Mental Status Exam: ??? Orientation: Time Place Person ??? Memory: Fair Appearance/General Behavior: Disheveled Mood/Affect depressed. Depressed with flat affect Communication Pattern: Does not respond to questions Thought Process: No evidence of VH/AH General Intellectual Functioning:?? Above Average ? Judgment: Poor ??? Insight:?? Poor ?? Patient appears to be decompensation regarding her mental health. Patient has lost 40 lbs since August. Patient appears depressed with flat affect. Patient is not answering questions which increases the risk as patient does not minimize any concern that this engineering technical writer has. Patient's feels patient is depressed. It is unclear if patient has been medication compliant. Thus, due to patient's current condition this engineering technical writer feel that patient could benefit from inpatient psych for crisis stabilization and med management. Plan: Inpatient psych
[2021-12-04 17:20] LABS: Bedside Glucose 206 mg/dL (74-106)
--- NOTE | 2021-12-04 17:22 | EKG12_ITS ---
Test Reason : Blood Pressure : / mmHG Vent. Rate : 099 BPM Atrial Rate : 099 BPM P-R Int : 128 ms QRS Dur : 074 ms QT Int : 402 ms P-R-T Axes : 090 -48 254 degrees QTc Int : 515 ms Somatic/Motion Artifact Sinus rhythm with Premature atrial complexes Left anterior fascicular block Cannot rule out Inferior infarct , age undetermined ST & T wave abnormality, consider anterolateral ischemia Prolonged QT Abnormal ECG Confirmed by JUSTYN VARGAS, ANGIE ([id number]), editor book DEMI FREEMAN ([id number]) on 12/06/2021 11:12:19 AM Referred By: Confirmed By:ANGIE ALEJANDRA MD
--- NOTE | 2021-12-04 17:28 | NURSING ---
This RN straight assisted with a straight catheterization at 1615. Pt had 825 ml's of urine out.
[2021-12-04] MEDS: Tamsulosin HCl 0.4 MG Capsule PO (17:46)
--- NOTE | 2021-12-04 19:52 | CM.ED ---
ISAÍAS Note ISAÍAS called patient's son, Dayne, as he had provided history last time of patient's admission. Dayne said that he had tons of concerns regarding his mother. However, since patient had been sent to [facility] his mom has not wanted him included in treatment planning and discharge planning. He said that he has not spoken to his parents since August. Dayne said that his mom was in the [facility] hospital for 9 days and is confused, having memory issues and is hallucinating. ISAÍAS attempted to reach out to son, Dayne, to obtain information regarding patient's functioning to assess what type of treatment is most appropriate for patient. Roxanna FLORENTINO
[2021-12-05] VITALS (11 sets, daily range): BP systolic 95–113; BP diastolic 58–87; PULSE 88–109; RESP 12–18; TEMP 35.8–36.4; O2SAT 94–100
[2021-12-05 00:31] LABS: Bedside Glucose 216 mg/dL (74-106)
[2021-12-05] MEDS: Levothyroxine 150 MCG Tablet PO (05:44)
[2021-12-05] MEDS: Insulin Lispro 100 UNIT/ML INSULN.PEN SC ×2 (06:23→16:43)
[2021-12-05 06:31] LABS: Absolute Lymphocyte Count 0.79 X10^3/uL (0.83-4.51); Absolute Neutrophil Count 5.7 X10^3/uL (2.0-7.7); Basophil# 0.01 X10^3/uL; Basophil% 0.1 % (0-1); Hematocrit 31.2 % (37-47); Hemoglobin 10.5 g/dL (12.0-15.0); Lymphocyte # 0.79 X10^3/ul (0.83-4.51); Lymphocyte % 11.4 % (19-41); Mean Corp Hgb Conc 33.7 g/dL (32-36); Mean Corpuscular Hgb 27.8 pg (27.0-32.0); Mean Corpuscular Volume 82.5 fL (81-99); Mean Platelet Vol. 11.3 fl (6.2-12.0); Monocyte# 0.23 X10^3/uL; Monocyte% 3.3 % (0-10); NRBC Flagged by Analyzer 0 % (0-5); Neutrophil # 5.68 X10^3/uL (2.7-7.7); Neutrophil % 82.3 % (47-70); POSITIVE COUNT YES; Platelet Count 95 K/mm3 (150-450); RBC Distribution Width SD 50.7 fl (35.1-43.9); Red Blood Count 3.78 M/mm3 (4.2-5.4); White Blood Count 6.9 K/mm3 (4.4-11.0)
[2021-12-05 06:37] LABS: Differential Indicated SCAN CRITERIA MET
[2021-12-05 06:43] LABS: Partial Thromboplast Time 96.7 Seconds (24.1-36.2)
[2021-12-05 06:46] LABS: Bedside Glucose 176 mg/dL (74-106)
[2021-12-05 07:01] LABS: Anion Gap 9 (5-15); BUN 33 mg/dL (7-18); BUN/Creat Ratio 16.8 RATIO (10-20); Calcium,Total 7.9 mg/dL (8.5-10.1); Chloride 111 mmol/L (98-107); Creatinine, Serum 1.97 mg/dL (0.55-1.02); EST Glomerular Filtration Rate 26 mL/min (>60); Est Glom Filt Rate - Afr Amer 32 mL/min (>60); Estimated Creatinine Clearance 27.91 ml/min; Glucose 240 mg/dL (74-106); Phosphorus 3.7 mg/dL (2.5-4.9); Potassium 3.6 mmol/L (3.5-5.1); Sodium Level 141 mmol/L (136-145)
[2021-12-05 07:03] LABS: Anisocytosis 1+; Platelet Estimate MOD DEC (ADEQ)
--- NOTE | 2021-12-05 07:10 | US_ITS ---
STUDY: RENAL ULTRASOUND - COMPLETE REASON FOR EXAM: Female, 71 years old. brenda TECHNIQUE: Ultrasound evaluation of the kidneys was performed with real-time and static breen-scale imaging. COMPARISON: None. FINDINGS: RIGHT KIDNEY: Normal location of the right kidney, which is normal in size. The right kidney measures 10.5 x 6.0 x 4.9 cm. There is a normal cortex of the right kidney. The renal cortex measures 1. cm. There is no right renal mass or cyst. There are no right renal calculi. There is no right hydronephrosis. DISTAL RIGHT URETER: There is non-visualization of the distal right ureter. There is no demonstrated right ureterovesical junction calculus. There is a non-visualized right ureteral jet. LEFT KIDNEY: Normal location of the left kidney, which is normal in size. The left kidney measures 9.2 x 4.4 x 4.2 cm. There is a normal cortex of the left kidney. The renal cortex measures 1.1 cm. There is a cyst seen within the left kidney 2.6 x 3.0 x 2.6 cm There are no left renal calculi. There is no left hydronephrosis. DISTAL LEFT URETER: There is non-visualization of the distal left ureter. There is no demonstrated left ureterovesical junction calculus. There is a non-visualized left ureteral jet. BLADDER: The distended urinary bladder has a volume of 231.3 ml. There is a normal wall thickness of the distended urinary bladder. Mass process is seen within the urinary bladder. This measures 8.05 cm transverse by 4.95 cm craniocaudal by 1.4 cm AP. This could represent hemorrhage within the urinary bladder. Mass or cystitis cannot be excluded. Correlation is advised. There are no demonstrated bladder calculi. US/Kidney and Bladder IMPRESSION: Mass process posterior urinary bladder 8.05 x 4.95 x 1.4 cm. This could represent hemorrhage or transitional cell carcinoma. Simple cyst of the left kidney 2.6 x 3.0 x 2.6 cm. Electronically Signed: Andres Veras MD, WILL at 12:54 EDT ,
[2021-12-05] MEDS: Lactated Ringers 1,000 ML 75 ML IV ×2 (07:21→20:12)
--- NOTE | 2021-12-05 11:54 | PN.HOSP_ITS ---
Subjective Subjective Using to have much interaction with me today. She will ask a few questions and follow simple commands but opens her eyes and then turns her head and ignores me for other interaction. Her effort with therapy was limited by her behaviors as well and she continues to refuse to eat much. She was evaluated and will go to [facility] psych at discharge when she is medically stable. Objective Data Objective Data Vital Signs: Vital Signs Temp Pulse Resp BP Pulse Ox O2 Del Method 96.5 F L 96 12 95/58 L 100 Room Air 12/05/21 08:27 12/05/21 08:27 12/05/21 08:27 12/05/21 08:27 12/05/21 08:27 12/05/21 08:27 Oxygen Delivery Method Room Air Weight: 77 kg Body Mass Index (BMI) 24.3 Intake & Output: Intake and Output for Last 24 Hours 12/03/21 12/04/21 12/05/21 23:59 23:59 23:59 Intake Total 1515 / 1595 4925.5333 / 4925.5333 792.67 / 792.67 Output Total 925 / 925 0 / 0 Balance 1515 / 1595 4000.5333 / 4000.5333 792.67 / 792.67 Medical Nutrition Assessment Dietitian: Malnutrition Criteria Met Start: 12/04/21 14:18 Freq: Status: Active Protocol: Document 12/04/21 14:18 AG (Rec: 12/04/21 14:18 [id number]) Nutrition Malnutrition Evidence of Malnutrition Exists Yes Malnutrition (severe): Chronic Evidenced By Suboptimal Energy Intake ( Severe),Weight Loss (Severe) Clinical Problem Chronic Disease or Condition Related Malnutrition Etiology severe, chronic malnutrition r /t inadequate energy intake d/ t depression Signs/Symptoms as evidenced by unintentional wt loss of 18.7kg/20% x 2 months; estimated PO intake meeting <50% of estimated energy needs x 2 weeks 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 Significant electrolyte abnormalities already- concerns for refeeding. Lab / Micro Data Result Diagrams: 12/05/21 06:10 12/05/21 06:10 Labs: Laboratory Results - last 24 hr 12/04/21 11:39: POC Glucose 218 H 12/04/21 14:05: PT 14.6, INR 1.2 12/04/21 16:20: POC Glucose 206 H 12/04/21 20:50: APTT 242.0 H* 12/04/21 22:12: POC Glucose 216 H 12/05/21 06:10: WBC 6.9, RBC 3.78 L, Hgb 10.5 L, Hct 31.2 L, MCV 82.5, MCH 27.8, MCHC 33.7, RDW Std Deviation 50.7 H, RDW Coeff of Rita 17.0 H, Plt Count 95 L, MPV 11.3, Immature Gran % (Auto) 2.900 H, Neut % (Auto) 82.3 H, Lymph % (Auto) 11.4 L, [place] % (Auto) 3.3, Eos % (Auto) 0.0, Baso % (Auto) 0.1, Absolute Neuts (auto) 5.7, Absolute Lymphs (auto) 0.79 L, Nucleated RBC % 0, Platelet Estimate MOD DEC, Anisocytosis 1+ 12/05/21 06:10: Sodium 141, Potassium 3.6, Chloride 111 H, Carbon Dioxide 21.0, Anion Gap 9, BUN 33 H, Creatinine 1.97 H, Estim Creat Clear Calc 27.91, Est GFR (MDRD) Af Amer 32 L, Est GFR (MDRD) Non-Af 26 L, BUN/Creatinine Ratio 16.8, Glucose 240 H, Calcium 7.9 L, Phosphorus 3.7, Magnesium 2.0 12/05/21 06:10: APTT 96.7 H* 12/05/21 06:21: POC Glucose 176 H Micro: Microbiology 12/03/21 14:35 Nasal Secretion SARS-CoV-2 Antigen (Rapid) - Final Radiography Diagnostic Testing: Radiology Impression Echocardiogram 12/03/21 14:51 Interpretation Summary Normal LV size. Left ventricular systolic function is normal. The estimated ejection fraction is 55 %. Pulmonary artery systolic pressure is 27 mmHg. Stage 1 diastolic dysfunction. The study was technically difficult. Ordering Physician: Argenis Foy Referring Physician: Billy Church Performed By: Daniela Patterson RDCS, RVT Venous Doppler Study 12/03/21 14:51 Interpretation Summary Acute deep vein thrombosis is noted in the right common femoral vein, right femoral vein, right popliteal vein. Unable to visual below the knee. Acute deep vein thrombosis is noted in the left common femoral vein, left femoral vein, left popliteal vein, left tibio-peroneal trunk vein, left posterior tibial vein, left peroneal vein. Acute superficial vein thrombosis is noted in the right great saphenous vein. Acute superficial vein thrombosis is noted in the left great saphenous vein. Ordering Physician: Argenis Foy Referring Physician: Billy Church Performed By: Tiana Lara, RVT Abdomen CT 12/04/21 11:50 IMPRESSION: 2 mm calculus in the proximal right ureter with mild right hydronephrosis. Minimal right pleural thickening. Stable left renal cysts. Distended urinary bladder. Increased density in the gallbladder lumen suggestive of either gallstones or sludge Electronically Signed: Brandon Sosa MD at 15:18 EDT , Rhythm Strip Rhythm Strip: Sinus Tach Rate: 108 Ectopy: None Physical Exam Const alert Constitutional Narrative: Elderly white female lying in bed, patient appears older than stated age, oriented to self, place but confused on time, affect is extremely flat, patient is somewhat uncooperative with questioning General Appearance: cooperative Orientation / Consciousness: confused HEENT normocephalic, head/scalp atraumatic and hearing grossly normal bilaterally Eyes PERRL, EOMs intact bilaterally and conjunctivae normal Eyes Narrative: No scleral icterus Neck no lymphadenopathy, supple, no JVD and no carotid bruits Neck Narrative: Trachea midline, no thyroid enlargement Resp normal respiratory effort, no retractions, no use of accessory muscles and clear to auscultation bilaterally Auscultation: Negative for crackles, rales, rhonchi or wheezes Cardio regular rate, regular rhythm, S1 normal heart sound, S2 normal heart sound, no murmurs, no rub, no gallops and no clicks GI normal to inspection, nondistended, normoactive bowel sounds, soft to palpation and non-tender; Negative for hepatosplenomegaly Extremity Extremity Narrative: Trace left lower extremity edema, no right lower extremity edema, no cyanosis or clubbing Skin no wounds, No skin turgor normal, no jaundice, no petechiae and no mottling Skin Narrative: Skin on legs is extremely dry and flaking Hair: brittle and general thinning Neuro CN's II-XII intact bilaterally, moves all extremities and no focal motor deficits Neuro Narrative: Speech is normal when patient will communicate however at times she continues to ignore questioning, it is difficult to ascertain her orientation Psych Psych Narrative: Affect is extremely flat and mood is depressed Mood & Affect: depressed Assessment & Plan Assessment/Plan (1) Acute kidney injury: (2) Acute dehydration: (3) Toxic metabolic encephalopathy: (4) Hypokalemia: (5) High anion gap metabolic acidosis: (6) Ketosis: (7) Hyperbilirubinemia: (8) Debility: (9) Severe malnutrition: (10) Abnormal EKG: (11) Hypomagnesemia: (12) Hypophosphatemia: (13) Acute DVT (deep venous thrombosis): (14) Nephrolithiasis: (15) Hydronephrosis: PLAN: Plan Toxic/metabolic encephalopathy -Stable -It seems that most of her issues now are more behavioral than actually encephalopathic -Continue to monitor -TSH within normal limits JACOB secondary to severe dehydration -Serum creatinine is 1.2-->0.3 above baseline on presentation -Serum creatinine has trended up to 1.97 -Continue IV fluids but discontinue dextrose and use LR at 75 cc an hour -Check renal ultrasound -1 L fluid bolus -Check urine electrolytes -Blood pressures remain normal at this time however low normal and have been borderline at times -Avoid nephrotoxins -BMP in a.m. Hypokalemia - resolved Hypomagnesemia - resolved Hypophosphatemia -Resolved Abnormal EKG -Current EKG with new T wave inversions in the inferior lateral leads -Patient with no active chest pain and symptoms are fairly nonspecific -Cardiac enzymes are normal x3 -Echocardiogram was unimpressive showing an EF of 55% with stage I diastolic dysfunction and a pulmonary artery systolic pressure of 27 mmHg Debility -Patient with 2 recent hip surgeries for replacement then revision secondary to recurrent dislocations -PT/OT following-participation is quite limited -May need placement at discharge Left lower extremity DVT-acute -Heparin drip initiated yesterday with CT of the abdomen pelvis pending -Continue heparin drip for now as patient did have some mild hydronephrosis with a small stone until we clarify whether or not any intervention will need to occur -Plan to convert to Eliquis 10 mg p.o. twice daily for 7 days then 5 mg p.o. when longer-term anticoagulation is appropriate 2 mm right ureteral calculus with mild right hydronephrosis -Flomax initiated -Continue IV fluids -Follow-up ultrasound is pending--> hopeful for resolution without any intervention however if she maintains with hydronephrosis that is nonresolving we will need to have urology evaluate the patient Dry skin -Eucerin cream twice daily to lower extremities History of rheumatoid arthritis -Continue home hydroxychloroquine and leflunomide -Continue home as needed Ultram Hypertension -Continue home metoprolol Depression -Continue duloxetine -We will have [facility] follow her after she is medically stable Severe malnutrition -Supplements given -Dietitian consult -Continue Marinol -CT was unremarkable for any abnormalities that would suggest reason for decreased p.o. intake -If p.o. intake does not improve may need NG tube for supplementation and this was discussed with patient -Continue to encourage p.o.--> seems that this is predominantly behavioral DVT prophylaxis -Continue Lovenox -SCDs CODE STATUS -Full code as per discussion with on admission Charges/Coding Visit Charges Inpatient E&M: 61316 [facility] L3
[2021-12-05] MEDS: DULoxetine Hcl 60 MG Capsule PO (12:34)
[2021-12-05] MEDS: Iron Polysaccharide Complex 150 MG CAPSULE PO (12:34)
[2021-12-05] MEDS: Leflunomide 10 MG TABLET 20 MG PO (12:35)
[2021-12-05] MEDS: Lactated Ringers 1,000 ML 999 ML IV (12:40)
[2021-12-05 14:06] LABS: Bedside Glucose 136 mg/dL (74-106)
--- NOTE | 2021-12-05 14:23 | CASEMGMT ---
RN let SW know that patient's was asking to talk with ISAÍAS Mcknight. ISAÍAS checked in with patient's and he wanted to let Roxanna know that he brought in patient's medications from home. ISAÍAS asked if he let the nurse know and he said he did. ISAÍAS let patient's know SW will let Roxanna know as well. Tamara Estrada HUMAN RESOURCES EXECUTIVE ASSISTANT STEFF
--- NOTE | 2021-12-05 15:18 | NURSING ---
Called lab at 1445 questioning when they would be up to draw since it was a half an hour late, they said they were on their way to draw at that time. Then called lab for the second time to check on status of PTT being drawn, it was due to be drawn at 1415 and it is now 1518. Emiliano from lab told this RN that they were unable to draw patient and another mobile home laborer was coming to try. PTT late due to this reason, will adjust heparin per protocol when PTT is has been drawn and result is available.
--- NOTE | 2021-12-05 15:32 | CT_ITS ---
STUDY: CT ABDOMEN AND PELVIS WITHOUT CONTRAST REASON FOR EXAM: Female, 71 years old. bladder mass? MAR series included RADIATION DOSAGE (If Supplied By Facility): CTDIvol = ( 17.26 ) mGy, DLP = ( 858.30 ) mGycm TECHNIQUE: Transaxial images were obtained from the dome of the diaphragm to the symphysis pubis without oral contrast, and without intravenous contrast. Sagittal and coronal images were reconstructed. Individualized dose optimization techniques were used for this CT. COMPARISON: 12/04/2021 2:54 PM FINDINGS: The visualized lung bases are unremarkable. The visualized portions of the heart are within normal limits. Normal liver. Sludge is again noted within the gallbladder lumen. Normal spleen. Age concordant pancreatic atrophy. Normal bilateral adrenal glands. Nonobstructing calculus left upper pole 0.2 cm. Simple cyst lateral mid to upper pole left kidney 2.9 cm. Mild right hydronephrosis. Within the proximal right ureter there is a 2 mm obstructing calculus. Normal visualized stomach. Normal small intestine. Moderate sigmoid diverticulosis. No diverticulitis. The appendix is visualized and appears normal. Normal abdominal aorta. Normal inferior vena cava. Normal retroperitoneum. Normal urinary bladder. Normal abdominal wall. Status post right hip arthroplasty. Bilateral pedicle screw fusion and laminectomy L4-5. Severe bilateral facet arthropathy L5-S1 moderate bilateral facet arthropathy L4-5. CT/Abdomen/Pelvis without Cont IMPRESSION: Stable findings. 2 mm calculus proximal right ureter with mild right hydronephrosis. 2 mm nonobstructing left upper pole calculus. Sludge within gallbladder lumen. Sigmoid diverticulosis. Simple cyst left kidney. Status post right hip arthroplasty. Status post bilateral pedicle screw fusion L4-5. Electronically Signed: Andres Veras MD, WILL at 16:34 EDT ,
[2021-12-05] MEDS: Heparin Injection (Vial) 5,000 UNIT/ML VIAL IV ×2 (16:28→23:37)
--- NOTE | 2021-12-05 16:33 | CM.ED ---
ISAÍAS Note ISAÍAS called Digna at [facility]. Digna said that Dr. Dale, who is the psychiatrist over [facility] would make the determination if patient would be accepted into treatment. She said to refer the patient when patient is medically ready. Digna said that she works with [facility] and [facility] and [facility] for behavioral health [facility]. ISAÍAS called Rebecca. Rebecca is currently on a wait list for [facility]. ISAÍAS explained the situation and staff advised to fax referral when patient is medically ready. ISAÍAS called 's office and left voice mail for return call back regarding patient's medications. ISAÍAS received call from Shelly at Dr. Green's office and per Shelly patient is not prescribed any antidepressants. Roxanna FLORENTINO
[2021-12-05] MEDS: Dronabinol 2.5 MG Capsule PO (17:00)
[2021-12-05 17:55] LABS: Bedside Glucose 163 mg/dL (74-106)
--- NOTE | 2021-12-05 18:53 | NURSING ---
Charting reviewed with Elsa Reddy RN
[2021-12-05] MEDS: Hydroxychloroquine 200 MG Tablet PO (18:54)
[2021-12-05] MEDS: Tamsulosin HCl 0.4 MG Capsule PO (18:54)
--- NOTE | 2021-12-05 19:01 | NURSING ---
Patient states she has already received the flu vaccine this season, called [facility] and she did not receive vaccine from their pharmacy or any other [facility] pharmacy. Tried to call PCP office but they were already closed. Will call tomorrow AM to verify if patient has received Flu Shot this season.
--- NOTE | 2021-12-05 19:33 | CM.ED ---
ISAÍAS called [facility]. No RN was available to staff the case. ISAÍAS was told to call back at 4pm but this mortgage or loan underwriter was unable to call back at that time. Roxanna FLORENTINO
[2021-12-05] MEDS: Petrolatum 33% Tube 1 APPLIC TOPICAL (20:13)
[2021-12-05 22:35] LABS: Bedside Glucose 156 mg/dL (74-106)
[2021-12-05 22:46] LABS: Partial Thromboplast Time 43.2 Seconds (24.1-36.2)
[2021-12-05] MEDS: HEPARIN/D5w 25,000 UNITS 25,000 UNITS/250 ML IV.SOLN. 8 UNITS CONT INF (23:54)
[2021-12-06] VITALS (11 sets, daily range): BP systolic 95–121; BP diastolic 50–86; PULSE 85–105; RESP 14–18; TEMP 36.4–36.9; O2SAT 96–100
[2021-12-06 05:51] LABS: Absolute Lymphocyte Count 0.76 X10^3/uL (0.83-4.51); Absolute Neutrophil Count 4.4 X10^3/uL (2.0-7.7); Basophil# 0.02 X10^3/uL; Basophil% 0.4 % (0-1); Hematocrit 28.9 % (37-47); Hemoglobin 10.1 g/dL (12.0-15.0); Lymphocyte # 0.76 X10^3/ul (0.83-4.51); Lymphocyte % 13.8 % (19-41); Mean Corp Hgb Conc 34.9 g/dL (32-36); Mean Corpuscular Hgb 28.3 pg (27.0-32.0); Mean Platelet Vol. 10.5 fl (6.2-12.0); Monocyte# 0.13 X10^3/uL; Monocyte% 2.4 % (0-10); NRBC Flagged by Analyzer 0 % (0-5); Neutrophil # 4.43 X10^3/uL (2.7-7.7); Neutrophil % 80.3 % (47-70); Platelet Count 101 K/mm3 (150-450); RBC Distribution Width CV 16.9 % (11.6-14.6); RBC Distribution Width SD 49.1 fl (35.1-43.9); Red Blood Count 3.57 M/mm3 (4.2-5.4); White Blood Count 5.5 K/mm3 (4.4-11.0)
[2021-12-06] MEDS: Levothyroxine 150 MCG Tablet PO (06:12)
[2021-12-06] MEDS: Dronabinol 2.5 MG Capsule PO ×2 (06:13→17:01)
[2021-12-06 06:14] LABS: ALB/GLOB Ratio 0.8 RATIO (0.9-2.4); AST(SGOT) 29 U/L (15-37); Alanine Aminotransfer ALT/SGPT 19 U/L (13-56); Albumin, Serum 2.3 g/dL (3.2-5.0); Alkaline Phosphatase 59 U/L (45-117); Anion Gap 8 (5-15); BUN 38 mg/dL (7-18); BUN/Creat Ratio 20.2 RATIO (10-20); Chloride 111 mmol/L (98-107); Creatinine, Serum 1.88 mg/dL (0.55-1.02); EST Glomerular Filtration Rate 28 mL/min (>60); Est Glom Filt Rate - Afr Amer 34 mL/min (>60); Estimated Creatinine Clearance 29.25 ml/min; Globulin 2.9 g/dL (2.2-4.2); Glucose 137 mg/dL (74-106); Magnesium 1.7 mg/dL (1.6-2.6); Phosphorus 3.3 mg/dL (2.5-4.9); Potassium 3.5 mmol/L (3.5-5.1); Protein, Total 5.2 g/dL (6.4-8.2); Sodium Level 142 mmol/L (136-145)
[2021-12-06 06:50] LABS: Bedside Glucose 127 mg/dL (74-106)
[2021-12-06 09:01] LABS: Creatinine, Urine (random) < 13.00 mg/dL (NO RANGE EST.); Urine Sodium 68 mmol/L (Not Establ.)
[2021-12-06] MEDS: Potassium Chloride Oral Soln 20 MEQ/15 ML UDC 40 MEQ PO (09:26)
[2021-12-06] MEDS: Hydroxychloroquine 200 MG Tablet PO ×3 (09:38→17:01)
[2021-12-06] MEDS: Petrolatum 33% Tube 1 APPLIC TOPICAL (09:39)
[2021-12-06] MEDS: DULoxetine Hcl 60 MG Capsule PO (09:39)
[2021-12-06] MEDS: Ensure Plus High Protein 120 ML LIQUID PO ×2 (09:39→17:02)
[2021-12-06] MEDS: Leflunomide 10 MG TABLET 20 MG PO (09:40)
[2021-12-06] MEDS: Iron Polysaccharide Complex 150 MG CAPSULE PO (09:40)
[2021-12-06] MEDS: Lactated Ringers 1,000 ML 75 ML IV (10:24)
[2021-12-06 11:55] LABS: Bedside Glucose 102 mg/dL (74-106)
[2021-12-06 12:34] LABS: Partial Thromboplast Time 49.6 Seconds (24.1-36.2)
--- NOTE | 2021-12-06 12:36 | CASEMGMT ---
Social Work Telephone call to social media community managerCarmelo. Carmelo Estrada reports that patient has been medically cleared. This social media community manager faxed referral to [facility]. Will continue to follow. ROMERO Tam
[2021-12-06] MEDS: RisperiDONE 0.5 MG Tablet PO ×2 (12:48→22:42)
[2021-12-06] MEDS: Heparin Injection (Vial) 5,000 UNIT/ML VIAL IV (12:48)
--- NOTE | 2021-12-06 12:52 | CASEMGMT ---
Social Work Telephone call received from [facility], [place] reports to have open beds for [facility]. Clinical information faxed. Mitchel POTTS, ROMERO
--- NOTE | 2021-12-06 13:02 | CASEMGMT ---
Social Work Telephone call from [facility], intake. Intake confirms to have received referral. Intake with question about patient intake. This social services specialist confirming that patient is not eating at this time and no NG tube is placed. [facility] plans to review clinicals further and get back to this social services specialist. Will continue to follow. Mitchel POTTS, ROMERO
--- NOTE | 2021-12-06 13:05 | CON.PCM.UR_ITS ---
Assessment & Plan Assessment/Plan (1) Nephrolithiasis: PLAN: Small stone in the kidney would recommend observation possible mass in the bladder on ultrasound CAT scan not really clear, I think she will need a cystoscopy at some point but not urgent she can follow-up as an outpatient in the office for an office cystoscopy. HPI Consult Data Date of Consult: 12/06/21 HPI Narrative Reason for Consultation: Possible bladder mass HPI Narrative: KULDEEP AGUIRRE, is a 71 F who presents to the hospital because of frequent falling she has been having difficulties at home and has been falling quite often and recently had another fall she was brought into the hospital for further care. While in the hospital an ultrasound was obtained demonstrated a possible mass in the bladder but it can looks like more like may be hemorrhage, CT scan was done that demonstrated a cyst in the left kidney a small stone in the left kidney no obvious mass inside the bladder on CAT scan and I suspect perhaps may be a blood clot was in the bladder. Does have a small stone in the left kidney. Her condition right now is fairly frail she is not able to support her self her is helping her with all her activities of daily living. Very likely she is going to have to be end up in a rehab facility or group home at this point. I spoke to her today and I told her that I do not see an obvious mass on CAT scan but there was a question about a mass or tumor in the bladder the only way to rule out a tumor or mass would be to do a cystoscopy and recommended after discharge from the hospital the come to the office for an outpatient cystoscopy. Would recommend observation of the kidney stone and observation of the cyst. [facility] Medical History Allergic rhinitis Back pain due to injury Breast lump Chronic mental illness Chronic renal failure, stage 3a Cognitive dysfunction Depression Fall at home Fracture of hip, right, closed Goiter History of blood transfusion History of revision of total replacement of right hip joint History of uterine fibroid HTN (hypertension) Hypertension Hypothyroidism Hypothyroidism Instability of right hip joint Kidney stones Malnourished Neuropathy Obesity (BMI 30-39.9) Osteoarthritis Physical debility Post-menopausal Posterior tibial tendinitis, left leg 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 02/19/13 [History Last Taken 06/06/21] cholecalciferol (vitamin D3) 50 mcg (2,000 unit) tablet 2,000 unit PO DAILY SUPPLEMENT 01/22/17 [History Last Taken 06/06/21] loratadine-pseudoephedrine ER 10 mg-240 mg tablet,extended [id number] (Claritin-D 24 Hour) 1 tab PO PRN PRN Sinus Symptoms 01/22/17 [History Last Taken 06/05/21] metoprolol tartrate 50 mg tablet 25 mg PO DAILY BP 08/17/21 [History Last Taken Unknown] polysaccharide iron complex 150 mg iron capsule (Ferrex) 150 mg PO DAILY supplement 09/20/21 [History Last Taken Unknown] acetaminophen 500 mg tablet 1,000 mg PO Q8 PRN fever or pain #0 tabs 09/29/21 [Rx Last Taken Unknown] duloxetine 60 mg capsule,delayed release 60 mg PO DAILY #30 caps 09/29/21 [Rx Last Taken Unknown] levothyroxine 150 mcg tablet 150 mcg PO DAILY THYROID #30 tabs 09/29/21 [Rx Last Taken 06/06/21] tramadol 50 mg tablet 50 mg PO Q6H PRN pain 7 days #28 tabs 09/29/21 [Rx Last Taken Unknown] meclizine 25 mg tablet 25 mg PO Q8H PRN PRN Dizziness #20 tabs 11/26/21 [Rx Last Taken Unknown] Allergy/AdvReac Type Severity Reaction Status Date / Time amoxicillin trihydrate AdvReac Vomiting Verified 12/03/21 11:42 [From Augmentin] Anesthetics - Mary Type- AdvReac Other Verified 12/03/21 16:07 Parabens [anesthesia - anesthetics] hydrocodone AdvReac Vomiting Verified 12/03/21 11:42 Family History Mother Arthritis Cancer Sister Arthritis Diabetes Father Bleeding disorder Heart disease Hypertension Son Bleeding disorder Surgical History H/O lumpectomy H/O spinal fusion H/O thyroidectomy History of bilateral knee replacement History of right hip hemiarthroplasty History of spinal fusion History of tonsillectomy and adenoidectomy Social History (Updated 12/03/21 @ 16:18 by Matilda Bruce) household members: spouse Smoking Status: Never smoker alcohol intake: current alcohol intake frequency: a few times a month substance use type: does not use ROS Review of Systems ROS Unobtainable: due to mental status Constitutional Constitutional: Reports systems reviewed and no addt'l complaints, except as documented; Denies chills, fever(s) or malaise Eyes Eyes: Reports systems reviewed and no addt'l complaints, except as documented; Denies blurry vision or change in vision ENT HEENT: Reports systems reviewed and no addt'l complaints, except as documented and none Cardiovascular Cardiovascular: Reports systems reviewed and no addt'l complaints, except as documented; Denies chest pain or palpitations Respiratory/Chest Respiratory/Chest: Reports systems reviewed and no addt'l complaints, except as documented; Denies cough or shortness of breath with exertion Gastrointestinal Gastrointestinal: Reports systems reviewed and no addt'l complaints, except as documented; Denies abdominal pain, constipation or diarrhea Genitourinary Genitourinary: Reports systems reviewed and no addt'l complaints, except as documented Musculoskeletal Musculoskeletal: Reports systems reviewed and no addt'l complaints, except as documented; Denies back pain, joint stiffness or joint swelling Integumentary Integumentary: Reports systems reviewed and no addt'l complaints, except as documented; Denies dry skin, jaundice, lesions or rash Neurologic Neurologic: Denies confusion, syncope or weakness Psychiatric Psychiatric: Reports none; Denies anxiety or depression Endocrine Endocrinology: Denies excessive sweating, fatigue or flushing Hematologic/Lymphatic Hematologic/Lymphatic: Denies anemia, easy bleeding or easy bruising Medical Records Data Medical Nutrition Assessment Dietitian: Malnutrition Criteria Met Start: 12/04/21 14:18 Freq: Status: Active Protocol: Document 12/04/21 14:18 AG (Rec: 12/04/21 14:18 [id number]) Nutrition Malnutrition Evidence of Malnutrition Exists Yes Malnutrition (severe): Chronic Evidenced By Suboptimal Energy Intake ( Severe),Weight Loss (Severe) Clinical Problem Chronic Disease or Condition Related Malnutrition Etiology severe, chronic malnutrition r /t inadequate energy intake d/ t depression Signs/Symptoms as evidenced by unintentional wt loss of 18.7kg/20% x 2 months; estimated PO intake meeting <50% of estimated energy needs x 2 weeks 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 Significant electrolyte abnormalities already- concerns for refeeding. Lab / Micro Data Result Diagrams: 12/06/21 05:45 12/06/21 05:45 Labs: Laboratory Results - last 24 hr 12/05/21 12:39: POC Glucose 136 H 12/05/21 15:35: APTT 41.0 H 12/05/21 16:42: POC Glucose 163 H 12/05/21 20:16: POC Glucose 156 H 12/05/21 22:26: APTT 43.2 H 12/06/21 05:45: WBC 5.5, RBC 3.57 L, Hgb 10.1 L, Hct 28.9 L, MCV 81.0, MCH 28.3, MCHC 34.9, RDW Std Deviation 49.1 H, RDW Coeff of Rita 16.9 H, Plt Count 101 L, MPV 10.5, Immature Gran % (Auto) 3.100 H, Neut % (Auto) 80.3 H, Lymph % (Auto) 13.8 L, [place] % (Auto) 2.4, Eos % (Auto) 0.0, Baso % (Auto) 0.4, Absolute Neuts (auto) 4.4, Absolute Lymphs (auto) 0.76 L, Nucleated RBC % 0 12/06/21 05:45: Sodium 142, Potassium 3.5, Chloride 111 H, Carbon Dioxide 23.0, Anion Gap 8, BUN 38 H, Creatinine 1.88 H, Estim Creat Clear Calc 29.25, Est GFR (MDRD) Af Amer 34 L, Est GFR (MDRD) Non-Af 28 L, BUN/Creatinine Ratio 20.2 H, Glucose 137 H, Calcium 8.0 L, Phosphorus 3.3, Magnesium 1.7, Total Bilirubin 0.60, AST 29, ALT 19, Alkaline Phosphatase 59, Total Protein 5.2 L, Albumin 2.3 L, Globulin 2.9, Albumin/Globulin Ratio 0.8 L 12/06/21 05:45: APTT 55.0 H 12/06/21 06:11: POC Glucose 127 H 12/06/21 08:25: Ur Random Sodium 68, Urine Creatinine < 13.00 12/06/21 11:33: POC Glucose 102 12/06/21 12:15: APTT 49.6 H Rhythm Strip Rhythm Strip: Sinus Tach Rate: 108 Ectopy: None Radiology Impression Abdomen/Pelvis CT 12/05/21 15:32 IMPRESSION: Stable findings. 2 mm calculus proximal right ureter with mild right hydronephrosis. 2 mm nonobstructing left upper pole calculus. Sludge within gallbladder lumen. Sigmoid diverticulosis. Simple cyst left kidney. Status post right hip arthroplasty. Status post bilateral pedicle screw fusion L4-5. Electronically Signed: Andres Veras MD, WILL at 16:34 EDT ,
--- NOTE | 2021-12-06 13:36 | PCM.PN.HOSP ---
Subjective Subjective Still refusing to eat. She hardly would take her pills this morning. Nursing did finally talk to her and got her to take her pills and is working on trying to get her to take p.o. I discussed with her if she is not able to eat were going to have to place an NG tube and she emphatically does not want that. 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 She was not able to tell me what month it was today. It is well-documented that her behaviors are dramatically impacting care at this point. Objective Data Objective Data Vital Signs: Vital Signs Temp Pulse Resp BP Pulse Ox O2 Del Method 97.5 F L 96 16 103/67 98 Room Air 12/06/21 11:25 12/06/21 11:25 12/06/21 11:25 12/06/21 11:25 12/06/21 11:25 12/06/21 11:25 Oxygen Delivery Method Room Air Weight: 77 kg Body Mass Index (BMI) 24.3 Intake & Output: Intake and Output for Last 24 Hours 12/04/21 12/05/21 12/06/21 23:59 23:59 23:59 Intake Total 4925.5333 / 4925.5333 3370.13 / 3370.13 1395.57 / 1395.57 Output Total 925 / 925 0 / 0 400 / 400 Balance 4000.5333 / 4000.5333 3370.13 / 3370.13 995.57 / 995.57 Medical Nutrition Assessment Dietitian: Malnutrition Criteria Met Start: 12/04/21 14:18 Freq: Status: Active Protocol: Document 12/04/21 14:18 (Rec: 12/04/21 14:18 [id number]) Nutrition Malnutrition Evidence of Malnutrition Exists Yes Malnutrition (severe): Chronic Evidenced By Suboptimal Energy Intake ( Severe),Weight Loss (Severe) Clinical Problem Chronic Disease or Condition Related Malnutrition Etiology severe, chronic malnutrition r /t inadequate energy intake d/ t depression Signs/Symptoms as evidenced by unintentional wt loss of 18.7kg/20% x 2 months; estimated PO intake meeting <50% of estimated energy needs x 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 Significant electrolyte abnormalities already- concerns for refeeding. Lab / Micro Data Result Diagrams: 12/06/21 05:45 12/06/21 05:45 Labs: Laboratory Results - last 24 hr 12/05/21 12:39: POC Glucose 136 H 12/05/21 15:35: APTT 41.0 H 12/05/21 16:42: POC Glucose 163 H 12/05/21 20:16: POC Glucose 156 H 12/05/21 22:26: APTT 43.2 H 12/06/21 05:45: WBC 5.5, RBC 3.57 L, Hgb 10.1 L, Hct 28.9 L, MCV 81.0, MCH 28.3, MCHC 34.9, RDW Std Deviation 49.1 H, RDW Coeff of Rita 16.9 H, Plt Count 101 L, MPV 10.5, Immature Gran % (Auto) 3.100 H, Neut % (Auto) 80.3 H, Lymph % (Auto) 13.8 L, [place] % (Auto) 2.4, Eos % (Auto) 0.0, Baso % (Auto) 0.4, Absolute Neuts (auto) 4.4, Absolute Lymphs (auto) 0.76 L, Nucleated RBC % 0 12/06/21 05:45: Sodium 142, Potassium 3.5, Chloride 111 H, Carbon Dioxide 23.0, Anion Gap 8, BUN 38 H, Creatinine 1.88 H, Estim Creat Clear Calc 29.25, Est GFR (MDRD) Af Amer 34 L, Est GFR (MDRD) Non-Af 28 L, BUN/Creatinine Ratio 20.2 H, Glucose 137 H, Calcium 8.0 L, Phosphorus 3.3, Magnesium 1.7, Total Bilirubin 0.60, AST 29, ALT 19, Alkaline Phosphatase 59, Total Protein 5.2 L, Albumin 2.3 L, Globulin 2.9, Albumin/Globulin Ratio 0.8 L 12/06/21 05:45: APTT 55.0 H 12/06/21 06:11: POC Glucose 127 H 12/06/21 08:25: Ur Random Sodium 68, Urine Creatinine < 13.00 12/06/21 11:33: POC Glucose 102 12/06/21 12:15: APTT 49.6 H Micro: Microbiology 12/03/21 14:35 Nasal Secretion SARS-CoV-2 Antigen (Rapid) - Final Radiography Diagnostic Testing: Radiology Impression Abdomen/Pelvis CT 12/05/21 15:32 IMPRESSION: Stable findings. 2 mm calculus proximal right ureter with mild right hydronephrosis. 2 mm nonobstructing left upper pole calculus. Sludge within gallbladder lumen. Sigmoid diverticulosis. Simple cyst left kidney. Status post right hip arthroplasty. Status post bilateral pedicle screw fusion L4-5. Electronically Signed: Andres Veras MD, WILL at 16:34 EDT , Rhythm Strip Rhythm Strip: Sinus Tach Rate: 108 Ectopy: None Physical Exam Const alert and no apparent distress Constitutional Narrative: Elderly white female lying in bed, patient appears older than stated age, oriented to self, place, and year as well as POTUS but unable to tell me what month it is Orientation / Consciousness: confused HEENT normocephalic, head/scalp atraumatic and hearing grossly normal bilaterally Neck no lymphadenopathy, supple, no JVD and no carotid bruits Neck Narrative: Trachea midline, no thyroid enlargement Resp normal respiratory effort, no retractions, no use of accessory muscles and clear to auscultation bilaterally Auscultation: Negative for crackles, rales, rhonchi or wheezes Cardio regular rate, regular rhythm, S1 normal heart sound, S2 normal heart sound, no murmurs, no rub, no gallops and no clicks Cardio Narrative: Intermittent ectopic beats with PVCs GI normal to inspection, nondistended, normoactive bowel sounds, soft to palpation and non-tender; Negative for hepatosplenomegaly Extremity Extremity Narrative: Trace left lower extremity edema, no right lower extremity edema, no cyanosis or clubbing Skin no wounds, No skin turgor normal, no jaundice, no petechiae and no mottling Skin Narrative: Skin on legs is extremely dry and flaking Hair: brittle and general thinning Neuro CN's II-XII intact bilaterally, moves all extremities and no focal motor deficits Neuro Narrative: Speech is normal when patient will communicate however at times she continues to ignore questioning, it is difficult to ascertain her orientation although seems a bit better today Sensorium / Orientation: awake, alert, oriented to person and oriented to place Psych Psych Narrative: Affect is extremely flat and mood is depressed Mood & Affect: depressed Assessment & Plan Assessment/Plan (1) Acute kidney injury: (2) Acute dehydration: (3) Toxic metabolic encephalopathy: (4) Hypokalemia: (5) High anion gap metabolic acidosis: (6) Ketosis: (7) Hyperbilirubinemia: (8) Debility: (9) Severe malnutrition: (10) Abnormal EKG: (11) Hypomagnesemia: (12) Hypophosphatemia: (13) Acute DVT (deep venous thrombosis): (14) Nephrolithiasis: (15) Hydronephrosis: PLAN: Plan Toxic/metabolic encephalopathy -Stable -It seems that most of her issues now are more behavioral than actually encephalopathic -Continue to monitor -TSH within normal limits JACOB secondary to severe dehydration -Serum creatinine is 1.2-->0.3 above baseline on presentation -Serum is now able lysed and trending back down -Continue IV fluids with LR 75 cc/h until patient is able to take p.o. adequately to maintain appropriate hydration -Renal ultrasound showed a possible mass posterior to the bladder versus hematoma--> Blanc placed and significant sediment and what looks like to be blood--> CT done with no comment with regards to the above--> we will have urology evaluate -1 L fluid bolus -FeNa is 6.9% most consistent with obstructive -Blanc placed -Blood pressures remain normal at this time however low normal and have been borderline at times -Avoid nephrotoxins -Repeat BMP in a.m. Abnormal EKG -Current EKG with new T wave inversions in the inferior lateral leads -Patient with no active chest pain and symptoms are fairly nonspecific -Cardiac enzymes are normal x3 -Echocardiogram was unimpressive showing an EF of 55% with stage I diastolic dysfunction and a pulmonary artery systolic pressure of 27 mmHg Debility -Patient with 2 recent hip surgeries for replacement then revision secondary to recurrent dislocations -PT/OT following-participation is quite limited -May need placement at discharge Left lower extremity DVT-acute -Heparin drip initiated yesterday with CT of the abdomen pelvis pending -Await urology input and if no procedures required will convert to Eliquis as noted below -Plan to convert to Eliquis 10 mg p.o. twice daily for 7 days then 5 mg p.o. when longer-term anticoagulation is appropriate 2 mm right ureteral calculus with mild right hydronephrosis -Flomax -Continue IV fluids -Urology consult pending Dry skin -Eucerin cream twice daily to lower extremities History of rheumatoid arthritis -Continue home hydroxychloroquine and leflunomide -Continue home as needed Ultram Hypertension -Continue home metoprolol Depression -Continue duloxetine -We will have [facility] follow her after she is medically stable Severe malnutrition -Supplements given -Dietitian following -Continue Marinol -CT was unremarkable for any abnormalities that would suggest reason for decreased p.o. intake -If p.o. intake does not improve may need NG tube for supplementation and this was discussed with patient -Continue to encourage p.o.--> seems that this is predominantly behavioral -Patient continues to refuse to eat DVT prophylaxis -heparin drip -SCDs CODE STATUS -Full code as per discussion with on admission Charges/Coding Visit Charges Inpatient E&M: 84354 Subs Hosp L2
--- NOTE | 2021-12-06 14:02 | CASEMGMT ---
Social Work Telephone call from Kemi Fernandez. [facility] unit continues to be full with possible discharges tomorrow. Kemi reports plan to work up case and place patient on waiting list. Kemi request for follow up on DVT testing results to be sent as well as clarified medical clearance. Kemi states we might also need toxicology. Kemi states can fax information tomorrow, or when obtained. This social media marketing specialist updated social media marketing specialist E. Natalie on above information. E. Natalie to pass on above information to medical team. Social Work to continue to follow as needed. Mitchel Hurd MSW, STEFF-S
--- NOTE | 2021-12-06 15:17 | CASEMGMT ---
Social Work Telephone call from [facility]. Patient has been declined due to physical need. [facility] reports to be unable to meet patient level of care. Mitchel POTTS, ROMERO
--- NOTE | 2021-12-06 16:09 | CON.PCM.SX_ITS ---
Assessment & Plan Assessment/Plan (1) Severe malnutrition: PLAN: I have evaluated this patient in conjunction with Dr. Muller. She will independently evaluate this patient. Patient was discussed with Dr. Muller. Dr. Muller will plan to perform an upper scope with PEG tube placement. Procedure details, risks and benefits have been explained to the patient and her . Patient is not able to consent for herself. Patient's is in agreement with the procedure and will sign the consent for the patient. Patient's has had the opportunity to ask and have questions answered. Patient does not appear that she would tug at the PEG tube if the tube is out of her site. I am recommending an abdominal binder if at all possible following the procedure. We will plan to hold the patient's Heparin 2 hours prior to the pr ocedure. Thank you for allowing us to participate in this patient's care. HPI Consult Data Date of Consult: 12/06/21 HPI Narrative HPI Narrative: KULDEEP AGUIRRE, is a 71 F who presents on Saturday with decline in her mental status. Patient does not speak for herself. Patient's is at bedside. Per patient's , he had noted her mental status had declined back in May. Patient had a fall at home fracturing her right hip. Dr. Reyes had repaired the hip. Following the repair, patient's noted a change in the mental status of the patient. He stated she dislocated the hip approximately 9 times. She had a total hip replacement by Dr. Erazo in September. Patient has been to multiple different nursing facilities for rehabilitation. Patient was currently at home. Patient's noted approximately 1 week ago she had a fall due to vertigo. She was bedridden. Patient's brought the patient on Saturday to the ED due to a decline in mental status. Patient's also noted that the patient had stopped eating and drinking any items approximately 2 weeks ago. Patient has been found to have extensive bilateral lower extremity DVT's during her hospitalization and has been placed on Heparin. Dr. Muller has been consulted in conjunction with myself to assist with the placement of a PEG tube to increase patient's nutritional status. 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 02/19/13 [History Last Taken 06/06/21] cholecalciferol (vitamin D3) 50 mcg (2,000 unit) tablet 2,000 unit PO DAILY SUPPLEMENT 01/22/17 [History Last Taken 06/06/21] loratadine-pseudoephedrine ER 10 mg-240 mg tablet,extended [id number] (Claritin-D 24 Hour) 1 tab PO PRN PRN Sinus Symptoms 01/22/17 [History Last Taken 06/05/21] metoprolol tartrate 50 mg tablet 25 mg PO DAILY BP 08/17/21 [History Last Taken Unknown] polysaccharide iron complex 150 mg iron capsule (Ferrex) 150 mg PO DAILY supplement 09/20/21 [History Last Taken Unknown] acetaminophen 500 mg tablet 1,000 mg PO Q8 PRN fever or pain #0 tabs 09/29/21 [Rx Last Taken Unknown] duloxetine 60 mg capsule,delayed release 60 mg PO DAILY #30 caps 09/29/21 [Rx Last Taken Unknown] levothyroxine 150 mcg tablet 150 mcg PO DAILY THYROID #30 tabs 09/29/21 [Rx Last Taken 06/06/21] tramadol 50 mg tablet 50 mg PO Q6H PRN pain 7 days #28 tabs 09/29/21 [Rx Last Taken Unknown] meclizine 25 mg tablet 25 mg PO Q8H PRN PRN Dizziness #20 tabs 11/26/21 [Rx Last Taken Unknown] Allergy/AdvReac Type Severity Reaction Status Date / Time amoxicillin trihydrate AdvReac Vomiting Verified 12/03/21 11:42 [From Augmentin] Anesthetics - Mary Type- AdvReac Other Verified 12/03/21 16:07 Parabens [anesthesia - anesthetics] hydrocodone AdvReac Vomiting Verified 12/03/21 11:42 Family History Mother Arthritis Cancer Sister Arthritis Diabetes Father Bleeding disorder Heart disease Hypertension Son Bleeding disorder Surgical History H/O lumpectomy H/O spinal fusion H/O thyroidectomy History of bilateral knee replacement History of right hip hemiarthroplasty History of spinal fusion History of tonsillectomy and adenoidectomy Social History (Updated 12/03/21 @ 16:18 by Matilda Bruce) household members: spouse Smoking Status: Never smoker alcohol intake: current alcohol intake frequency: a few times a month substance use type: does not use ROS ROS Narrative Patient evaluated resting in bed. Patient's answered majority of the questions. Patient is not able to appropriately answer questions. Review of Systems ROS Unobtainable: due to mental condition Physical Exam Const General Appearance: uncooperative and disheveled Exam Limitations: altered mental status HEENT normocephalic Eyes PERRL Neck full ROM Lymph Lymphatic: no lymphadenopathy noted Chest inspection of chest normal Resp normal respiratory effort and clear to auscultation bilaterally Cardio Cardio Narrative: irregular rhythm GI Auscultation: normoactive bowel sounds Palpation: soft and tender other (generalized abdominal discomfort) no CVA tenderness Bladder / Kidney Exam: catheter in place Extremity General Extremity: calf tenderness and edema bilateral lower extremity Skin General Skin Exam: purpura Neuro Sensorium / Orientation: confused Psych Appearance: unkempt and disheveled Speech: delayed Mood & Affect: flat affect Medical Records Data Medical Nutrition Assessment Dietitian: Malnutrition Criteria Met Start: 12/04/21 14:18 Freq: Status: Active Protocol: Document 12/04/21 14:18 AG (Rec: 12/04/21 14:18 [id number]) Nutrition Malnutrition Evidence of Malnutrition Exists Yes Malnutrition (severe): Chronic Evidenced By Suboptimal Energy Intake ( Severe),Weight Loss (Severe) Clinical Problem Chronic Disease or Condition Related Malnutrition Etiology severe, chronic malnutrition r /t inadequate energy intake d/ t depression Signs/Symptoms as evidenced by unintentional wt loss of 18.7kg/20% x 2 months; estimated PO intake meeting <50% of estimated energy needs x 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 Significant electrolyte abnormalities already- concerns for refeeding. Lab / Micro Data Result Diagrams: 12/06/21 05:45 12/06/21 05:45 Labs: Laboratory Results - last 24 hr 12/05/21 16:42: POC Glucose 163 H 12/05/21 20:16: POC Glucose 156 H 12/05/21 22:26: APTT 43.2 H 12/06/21 05:45: WBC 5.5, RBC 3.57 L, Hgb 10.1 L, Hct 28.9 L, MCV 81.0, MCH 28.3, MCHC 34.9, RDW Std Deviation 49.1 H, RDW Coeff of Rita 16.9 H, Plt Count 101 L, MPV 10.5, Immature Gran % (Auto) 3.100 H, Neut % (Auto) 80.3 H, Lymph % (Auto) 13.8 L, [place] % (Auto) 2.4, Eos % (Auto) 0.0, Baso % (Auto) 0.4, Absolute Neuts (auto) 4.4, Absolute Lymphs (auto) 0.76 L, Nucleated RBC % 0 12/06/21 05:45: Sodium 142, Potassium 3.5, Chloride 111 H, Carbon Dioxide 23.0, Anion Gap 8, BUN 38 H, Creatinine 1.88 H, Estim Creat Clear Calc 29.25, Est GFR (MDRD) Af Amer 34 L, Est GFR (MDRD) Non-Af 28 L, BUN/Creatinine Ratio 20.2 H, Glucose 137 H, Calcium 8.0 L, Phosphorus 3.3, Magnesium 1.7, Total Bilirubin 0.60, AST 29, ALT 19, Alkaline Phosphatase 59, Total Protein 5.2 L, Albumin 2.3 L, Globulin 2.9, Albumin/Globulin Ratio 0.8 L 12/06/21 05:45: APTT 55.0 H 12/06/21 06:11: POC Glucose 127 H 12/06/21 08:25: Ur Random Sodium 68, Urine Creatinine < 13.00 12/06/21 11:33: POC Glucose 102 12/06/21 12:15: APTT 49.6 H Rhythm Strip Rhythm Strip: Sinus Tach Rate: 108 Ectopy: None Radiology Impression Abdomen/Pelvis CT 12/05/21 15:32 IMPRESSION: Stable findings. 2 mm calculus proximal right ureter with mild right hydronephrosis. 2 mm nonobstructing left upper pole calculus. Sludge within gallbladder lumen. Sigmoid diverticulosis. Simple cyst left kidney. Status post right hip arthroplasty. Status post bilateral pedicle screw fusion L4-5. Electronically Signed: Andres Veras MD, WILL at 16:34 EDT , Charges/Coding Visit Charges Office Visits / Consults: [id number] IP Consult L3
[2021-12-06] MEDS: Tamsulosin HCl 0.4 MG Capsule PO (17:01)
[2021-12-06] MEDS: Insulin Lispro 100 UNIT/ML INSULN.PEN SC (17:01)
--- NOTE | 2021-12-06 17:47 | NURSING ---
Charting reviewed with Elsa Reddy RN
[2021-12-06 18:15] LABS: Bedside Glucose 154 mg/dL (74-106)
[2021-12-06 19:27] LABS: Partial Thromboplast Time 80.3 Seconds (24.1-36.2)
[2021-12-07] VITALS (18 sets, daily range): BP systolic 86–112; BP diastolic 60–78; PULSE 65–91; RESP 14–17; TEMP 36.1–36.6; O2SAT 94–100; BMI 24.3
[2021-12-07 01:21] LABS: Bedside Glucose 113 mg/dL (74-106)
[2021-12-07] MEDS: Lactated Ringers 1,000 ML 75 ML IV ×2 (02:43→21:00)
[2021-12-07 04:05] LABS: Absolute Lymphocyte Count 0.52 X10^3/uL (0.83-4.51); Absolute Neutrophil Count 2.5 X10^3/uL (2.0-7.7); Basophil# 0.01 X10^3/uL; Basophil% 0.3 % (0-1); Hemoglobin 8.5 g/dL (12.0-15.0); Lymphocyte # 0.52 X10^3/ul (0.83-4.51); Lymphocyte % 16.1 % (19-41); Mean Corp Hgb Conc 31.5 g/dL (32-36); Mean Corpuscular Hgb 27.1 pg (27.0-32.0); Mean Platelet Vol. 11.1 fl (6.2-12.0); Monocyte% 3.1 % (0-10); NRBC Flagged by Analyzer 0 % (0-5); Neutrophil # 2.47 X10^3/uL (2.7-7.7); Neutrophil % 76.8 % (47-70); POSITIVE COUNT YES; POSITIVE DIFFERENTIAL YES; Platelet Count 78 K/mm3 (150-450); RBC Distribution Width CV 17.2 % (11.6-14.6); RBC Distribution Width SD 53.4 fl (35.1-43.9); Red Blood Count 3.14 M/mm3 (4.2-5.4); White Blood Count 3.2 K/mm3 (4.4-11.0)
[2021-12-07 04:32] LABS: Differential Indicated SCAN CRITERIA MET
[2021-12-07 04:36] LABS: Thyroid Stim Hormone (TSH) 1.37 uIU/mL (0.358-3.74)
[2021-12-07 04:37] LABS: Anion Gap 8 (5-15); BUN 42 mg/dL (7-18); Calcium,Total 7.8 mg/dL (8.5-10.1); Chloride 112 mmol/L (98-107); Creatinine, Serum 1.68 mg/dL (0.55-1.02); EST Glomerular Filtration Rate 32 mL/min (>60); Est Glom Filt Rate - Afr Amer 38 mL/min (>60); Estimated Creatinine Clearance 32.73 ml/min; Glucose 127 mg/dL (74-106); Partial Thromboplast Time 50.9 Seconds (24.1-36.2); Potassium 3.7 mmol/L (3.5-5.1); Sodium Level 141 mmol/L (136-145)
[2021-12-07 04:44] LABS: International Normalized Ratio 1.1
[2021-12-07 04:45] LABS: Burr Cells RARE; Differential Comment SCANNED; Platelet Estimate MOD DEC (ADEQ)
[2021-12-07] MEDS: Heparin Injection (Vial) 5,000 UNIT/ML VIAL IV (04:47)
--- NOTE | 2021-12-07 05:55 | EKG12_ITS ---
Test Reason : AM EKG Blood Pressure : / mmHG Vent. Rate : 085 BPM Atrial Rate : 085 BPM P-R Int : 124 ms QRS Dur : 074 ms QT Int : 424 ms P-R-T Axes : 053 -36 230 degrees QTc Int : 504 ms Sinus rhythm with Premature atrial complexes Left axis deviation T wave abnormality, consider anterior ischemia Prolonged QT Abnormal ECG When compared with ECG of 04-DEC-2021 17:33, No significant change was found Confirmed by GABBIE VARGAS, BAYLEE ([id number]), online content editor DEMI FREEMAN ([id number]) on 12/08/2021 2:39:12 P M Referred By: RICHARD Confirmed By:BRANDAN CARTWRIGHT MD
[2021-12-07] MEDS: HEPARIN/D5w 25,000 UNITS 25,000 UNITS/250 ML IV.SOLN. 9 UNITS CONT INF (06:37)
[2021-12-07 06:55] LABS: Bedside Glucose 97 mg/dL (74-106)
[2021-12-07 08:10] LABS: Absolute Lymphocyte Count 0.53 X10^3/uL (0.83-4.51); Absolute Neutrophil Count 2.4 X10^3/uL (2.0-7.7); Eosinophil# 0.01 X10^3/uL; Eosinophils% 0.3 % (0-5); Hematocrit 25.4 % (37-47); Hemoglobin 8.7 g/dL (12.0-15.0); Lymphocyte # 0.53 X10^3/ul (0.83-4.51); Lymphocyte % 16.6 % (19-41); Mean Corp Hgb Conc 34.3 g/dL (32-36); Mean Corpuscular Hgb 28.5 pg (27.0-32.0); Mean Corpuscular Volume 83.3 fL (81-99); Monocyte# 0.11 X10^3/uL; Monocyte% 3.4 % (0-10); NRBC Flagged by Analyzer 0 % (0-5); Neutrophil # 2.44 X10^3/uL (2.7-7.7); Neutrophil % 76.6 % (47-70); POSITIVE COUNT YES; POSITIVE DIFFERENTIAL YES; Platelet Count 78 K/mm3 (150-450); RBC Distribution Width CV 17.2 % (11.6-14.6); RBC Distribution Width SD 52.2 fl (35.1-43.9); Red Blood Count 3.05 M/mm3 (4.2-5.4); White Blood Count 3.2 K/mm3 (4.4-11.0)
[2021-12-07 08:22] LABS: Differential Indicated SCAN CRITERIA MET
[2021-12-07 08:32] LABS: Hemoglobin A1c 5.5 % (3.8-5.6)
--- NOTE | 2021-12-07 08:33 | PCM.PN.SRG ---
Subjective Subjective Patient current platelets are 78 which is a drop from previous. Patient is having her heparin stopped and she is going to start argatroban. Initially was planning for PEG given EGD today but will hold off. Objective Data Objective Data Vital Signs: Vital Signs Temp Pulse Resp BP Pulse Ox O2 Del Method 97.8 F 82 16 110/71 94 Room Air 12/07/21 06:32 12/07/21 06:32 12/07/21 06:32 12/07/21 06:32 12/07/21 06:32 12/07/21 08:20 Oxygen Delivery Method Room Air Weight: 169 lb 12.095 oz Body Mass Index (BMI) 24.3 Intake & Output: Intake and Output for Last 24 Hours 12/05/21 12/06/21 12/07/21 23:59 23:59 23:59 Intake Total 3370.13 / 3370.13 1468.02 / 1468.02 984.48 / 984.48 Output Total 0 / 0 550 / 550 100 / 100 Balance 3370.13 / 3370.13 918.02 / 918.02 884.48 / 884.48 Medical Nutrition Assessment Dietitian: Malnutrition Criteria Met Start: 12/04/21 14:18 Freq: Status: Active Protocol: Document 12/04/21 14:18 AG (Rec: 12/04/21 14:18 AG [id number]) Nutrition Malnutrition Evidence of Malnutrition Exists Yes Malnutrition (severe): Chronic Evidenced By Suboptimal Energy Intake ( Severe),Weight Loss (Severe) Clinical Problem Chronic Disease or Condition Related Malnutrition Etiology severe, chronic malnutrition r /t inadequate energy intake d/ t depression Signs/Symptoms as evidenced by unintentional wt loss of 18.7kg/20% x 2 months; estimated PO intake meeting <50% of estimated energy needs x 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 Significant electrolyte abnormalities already- concerns for refeeding. Lab / Micro Data Result Diagrams: 12/07/21 07:55 12/07/21 03:56 Labs: Laboratory Results - last 24 hr 12/06/21 08:25: Ur Random Sodium 68, Urine Creatinine < 13.00 12/06/21 11:33: POC Glucose 102 12/06/21 12:15: APTT 49.6 H 12/06/21 16:58: POC Glucose 154 H 12/06/21 18:41: APTT 80.3 H 12/06/21 22:35: POC Glucose 113 H 12/07/21 03:56: WBC 3.2 L, RBC 3.14 L, Hgb 8.5 L, Hct 27.0 L, MCV 86.0 D, MCH 27.1, MCHC 31.5 L D, RDW Std Deviation 53.4 H, RDW Coeff of Rita 17.2 H, Plt Count 78 L, MPV 11.1, Immature Gran % (Auto) 3.700 H, Neut % (Auto) 76.8 H, Lymph % (Auto) 16.1 L, [place] % (Auto) 3.1, Eos % (Auto) 0.0, Baso % (Auto) 0.3, Absolute Neuts (auto) 2.5, Absolute Lymphs (auto) 0.52 L, Nucleated RBC % 0, Differential Comment SCANNED, Diff Path Review May foll, Platelet Estimate MOD DEC, Jignesh Cells RARE 12/07/21 03:56: Sodium 141, Potassium 3.7, Chloride 112 H, Carbon Dioxide 21.0, Anion Gap 8, BUN 42 H, Creatinine 1.68 H, Estim Creat Clear Calc 32.73, Est GFR (MDRD) Af Amer 38 L, Est GFR (MDRD) Non-Af 32 L, BUN/Creatinine Ratio 25.0 H, Glucose 127 H, Calcium 7.8 L 12/07/21 03:56: APTT 50.9 H 12/07/21 03:56: PT 14.0, INR 1.1 12/07/21 03:56: TSH 1.37 12/07/21 03:56: Hemoglobin A1c 5.5 12/07/21 06:26: POC Glucose 97 12/07/21 07:55: WBC 3.2 L, RBC 3.05 L, Hgb 8.7 L, Hct 25.4 L, MCV 83.3, MCH 28.5, MCHC 34.3 D, RDW Std Deviation 52.2 H, RDW Coeff of Rita 17.2 H, Plt Count 78 L, MPV 11.0, Immature Gran % (Auto) 3.100 H, Neut % (Auto) 76.6 H, Lymph % (Auto) 16.6 L, [place] % (Auto) 3.4, Eos % (Auto) 0.3, Baso % (Auto) 0.0, Absolute Neuts (auto) 2.4, Absolute Lymphs (auto) 0.53 L, Nucleated RBC % 0 Micro: Microbiology 12/03/21 14:35 Nasal Secretion SARS-CoV-2 Antigen (Rapid) - Final Rhythm Strip Rhythm Strip: Sinus Tach Rate: 108 Ectopy: None Physical Exam Const no apparent distress Constitutional Narrative: Patient would occasionally answer questions with a yes or no, flat affect Resp normal respiratory effort Cardio regular rate GI GI Narrative: Soft, nondistended, nontender Assessment & Plan Assessment/Plan (1) Severe malnutrition: (2) Acute DVT (deep venous thrombosis): (3) Thrombocytopenia: PLAN: Plan Due to patient's thrombocytopenia we will plan on holding off on the EGD and PEG today and reevaluate tomorrow?discussed with Dr. Foy. Patient will be started on argatroban and has a heparin drip is being stopped. Le Muller M.D. Pager: [phone] [facility] [address] [place] [address], [facility] [address] [place] [address] Office: [phone]
[2021-12-07 08:35] LABS: Platelet Estimate SLT DEC (ADEQ)
[2021-12-07 08:36] LABS: Platelet Morphology LARGE
[2021-12-07 08:41] LABS: LDH 274 U/L (84-246)
--- NOTE | 2021-12-07 10:20 | CASEMGMT ---
ISAÍAS spoke with ED ISAÍAS Mcknight. ISAÍAS let Roxanna know that patient is going to get a peg tube placed at some point so her discharge is on hold. Roxanna will call some psych units to see if they take patients with peg tubes. ISAÍAS will continue to follow for d/c planning. Patient will either go to a psych unit or a [facility] that provides behavioral health. Tamara ARTIS
[2021-12-07] MEDS: Metoprolol Tartrate 25 MG Tablet PO (10:29)
[2021-12-07] MEDS: 0.9% Saline Lock 10 ML Syringe IV ×2 (10:29→21:16)
[2021-12-07] MEDS: Iron Polysaccharide Complex 150 MG CAPSULE PO (10:30)
[2021-12-07] MEDS: DULoxetine Hcl 60 MG Capsule PO (10:30)
[2021-12-07] MEDS: RisperiDONE 0.5 MG Tablet PO ×2 (10:30→21:17)
[2021-12-07] MEDS: Levothyroxine 150 MCG Tablet PO (10:30)
[2021-12-07] MEDS: Petrolatum 33% Tube 1 APPLIC TOPICAL ×2 (10:31→21:16)
[2021-12-07] MEDS: Dronabinol 2.5 MG Capsule PO ×2 (12:23→17:38)
--- NOTE | 2021-12-07 12:39 | PCM.PN.HOSP ---
Subjective Subjective Issues overnight. Patient still refuses to eat much or drink. Platelets and hemoglobin dropped some however repeat labs show stability. PEG tube on hold with thrombocytopenia today. Heparin drip discontinued and patient started on bivalirudin with concern of HIT. HIT antibodies pending. Patient still not willing to participate much with interaction. Patient did eat for the nurse this morning a bit. Approximately half of a bowl of oatmeal and a few bites of yogurt. She did take her pills orally without any difficulty. Objective Data Objective Data Vital Signs: Vital Signs Temp Pulse Resp BP Pulse Ox O2 Del Method 97.8 F 81 17 88/60 L 99 Room Air 12/07/21 12:09 12/07/21 12:09 12/07/21 12:09 12/07/21 12:09 12/07/21 12:09 12/07/21 12:09 Oxygen Delivery Method Room Air Weight: 77 kg Body Mass Index (BMI) 24.3 Intake & Output: Intake and Output for Last 24 Hours 12/05/21 12/06/21 12/07/21 23:59 23:59 23:59 Intake Total 3370.13 / 3370.13 1468.02 / 1468.02 1689.43 / 1689.43 Output Total 0 / 0 550 / 550 200 / 200 Balance 3370.13 / 3370.13 918.02 / 918.02 1489.43 / 1489.43 Medical Nutrition Assessment Dietitian: Malnutrition Criteria Met Start: 12/04/21 14:18 Freq: Status: Active Protocol: Document 12/07/21 11:03 (Rec: 12/07/21 11:03 [id number]) Nutrition Malnutrition Evidence of Malnutrition Exists Yes Malnutrition (severe): Chronic Evidenced By Suboptimal Energy Intake ( Severe),Weight Loss (Severe) Clinical Problem Chronic Disease or Condition Related Malnutrition Etiology severe, chronic malnutrition r /t inadequate energy intake d/ t depression Signs/Symptoms as evidenced by unintentional wt loss of 18.7kg/20% x 2 months; estimated PO intake meeting <50% of estimated energy needs x 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 Concerns for refeeding- recommend close monitoring of electrolytes. See RD documentation for enteral nutrition recommendations for when PEG placed. Lab / Micro Data Result Diagrams: 12/07/21 07:55 12/07/21 03:56 Labs: Laboratory Results - last 24 hr 12/06/21 16:58: POC Glucose 154 H 12/06/21 18:41: APTT 80.3 H 12/06/21 22:35: POC Glucose 113 H 12/07/21 03:56: WBC 3.2 L, RBC 3.14 L, Hgb 8.5 L, Hct 27.0 L, MCV 86.0 D, MCH 27.1, MCHC 31.5 L D, RDW Std Deviation 53.4 H, RDW Coeff of Rita 17.2 H, Plt Count 78 L, MPV 11.1, Immature Gran % (Auto) 3.700 H, Neut % (Auto) 76.8 H, Lymph % (Auto) 16.1 L, [place] % (Auto) 3.1, Eos % (Auto) 0.0, Baso % (Auto) 0.3, Absolute Neuts (auto) 2.5, Absolute Lymphs (auto) 0.52 L, Nucleated RBC % 0, Differential Comment SCANNED, Diff Path Review May foll, Platelet Estimate MOD DEC, Jignesh Cells RARE 12/07/21 03:56: Sodium 141, Potassium 3.7, Chloride 112 H, Carbon Dioxide 21.0, Anion Gap 8, BUN 42 H, Creatinine 1.68 H, Estim Creat Clear Calc 32.73, Est GFR (MDRD) Af Amer 38 L, Est GFR (MDRD) Non-Af 32 L, BUN/Creatinine Ratio 25.0 H, Glucose 127 H, Calcium 7.8 L 12/07/21 03:56: APTT 50.9 H 12/07/21 03:56: PT 14.0, INR 1.1 12/07/21 03:56: TSH 1.37 12/07/21 03:56: Hemoglobin A1c 5.5 12/07/21 06:26: POC Glucose 97 12/07/21 07:55: WBC 3.2 L, RBC 3.05 L, Hgb 8.7 L, Hct 25.4 L, MCV 83.3, MCH 28.5, MCHC 34.3 D, RDW Std Deviation 52.2 H, RDW Coeff of Rita 17.2 H, Plt Count 78 L, MPV 11.0, Immature Gran % (Auto) 3.100 H, Neut % (Auto) 76.6 H, Lymph % (Auto) 16.6 L, [place] % (Auto) 3.4, Eos % (Auto) 0.3, Baso % (Auto) 0.0, Absolute Neuts (auto) 2.4, Absolute Lymphs (auto) 0.53 L, Nucleated RBC % 0, Diff Path Review June foll, Platelet Estimate SLT DEC, Plt Morphology Comment LARGE 12/07/21 07:55: Lactate Dehydrogenase 274 H Micro: Microbiology 12/03/21 14:35 Nasal Secretion SARS-CoV-2 Antigen (Rapid) - Final Rhythm Strip Rhythm Strip: Sinus Tach Rate: 108 Ectopy: None Physical Exam Const alert and no apparent distress Constitutional Narrative: Elderly white female lying in bed, patient appears older than stated age, oriented to self, place, and year as well as POTUS but unable to tell me what month it is, intermittently refuses to talk Orientation / Consciousness: confused HEENT normocephalic, head/scalp atraumatic and hearing grossly normal bilaterally Eyes PERRL, EOMs intact bilaterally and conjunctivae normal Eyes Narrative: Neck no lymphadenopathy, supple, no JVD and no carotid bruits Neck Narrative: Trachea midline, no thyroid enlargement Resp normal respiratory effort, no retractions, no use of accessory muscles and clear to auscultation bilaterally Auscultation: Negative for crackles, rales, rhonchi or wheezes Cardio regular rate, regular rhythm, S1 normal heart sound, S2 normal heart sound, no murmurs, no rub, no gallops and no clicks Cardio Narrative: Intermittent ectopic beats with PVCs GI normal to inspection, nondistended, normoactive bowel sounds, soft to palpation and non-tender; Negative for hepatosplenomegaly Extremity Extremity Narrative: Trace left lower extremity edema, no right lower extremity edema, no cyanosis or clubbing Skin no wounds, No skin turgor normal, no jaundice, no petechiae and no mottling Skin Narrative: Skin on legs is extremely dry and flaking Hair: brittle and general thinning Neuro CN's II-XII intact bilaterally, moves all extremities and no focal motor deficits Neuro Narrative: Speech is normal when patient will communicate however at times she continues to ignore questioning Sensorium / Orientation: awake, alert, oriented to person and oriented to place Psych Psych Narrative: Affect is extremely flat and mood is depressed Mood & Affect: depressed Assessment & Plan Assessment/Plan (1) Acute kidney injury: (2) Acute dehydration: (3) Toxic metabolic encephalopathy: (4) Hypokalemia: (5) High anion gap metabolic acidosis: (6) Ketosis: (7) Hyperbilirubinemia: (8) Debility: (9) Severe malnutrition: (10) Abnormal EKG: (11) Hypomagnesemia: (12) Hypophosphatemia: (13) Acute DVT (deep venous thrombosis): (14) Nephrolithiasis: (15) Hydronephrosis: (16) Thrombocytopenia: PLAN: Plan Toxic/metabolic encephalopathy -Stable -It seems that most of her issues now are more behavioral than actually encephalopathic -Continue to monitor -TSH within normal limits JACOB secondary to severe dehydration -Serum creatinine is 1.2-->0.3 above baseline on presentation -Serum is now able lysed and trending back down and now 1.66 -Continue IV fluids with LR 75 cc/h until patient is able to take p.o. adequately to maintain appropriate hydration -Renal ultrasound showed a possible mass posterior to the bladder versus hematoma--> Blanc placed and significant sediment and what looks like to be blood--> CT done with no comment with regards to the above--> Urology has seen the patient and will follow as an outpatient with no urgent needs for intervention at this time -1 L fluid bolus again today -FeNa is 6.9% on 12/06/2021 most consistent with obstructive -Blanc placed and serum creatinine is trending down at this point -Avoid nephrotoxins -Repeat BMP in a.m. -Would leave Blanc in at discharge Thrombocytopenia -Doubt TTP or HIT -KIRSTIN smear ordered -Check HIT antibody -Discontinue heparin drip -Start bivalirudin -We will convert to oral agents once PEG tube is placed but need IV with rapid conversion until that point time -Hematology/oncology consult pending--> Case was discussed with Dr. Franco -PEG tube currently on hold Anemia -Repeat stable -Likely somewhat dilutional -Continue to monitor for stability -Check guaiac stool -Transfuse for hemoglobin less than 7 Abnormal EKG -Current EKG with new T wave inversions in the inferior lateral leads -Patient with no active chest pain and symptoms are fairly nonspecific -Cardiac enzymes are normal x3 -Echocardiogram was unimpressive showing an EF of 55% with stage I diastolic dysfunction and a pulmonary artery systolic pressure of 27 mmHg Debility -Patient with 2 recent hip surgeries for replacement then revision secondary to recurrent dislocations -PT/OT following-participation is quite limited -May need placement at discharge Left lower extremity DVT-acute -Heparin drip initiated yesterday with CT of the abdomen pelvis pending -Await urology input and if no procedures required will convert to Eliquis as noted below -Plan to convert to Eliquis 10 mg p.o. twice daily for 7 days then 5 mg p.o. when longer-term anticoagulation is appropriate 2 mm right ureteral calculus with mild right hydronephrosis -Continue Flomax -Continue IV fluids -Urology has evaluated the patient and no need for any intervention Dry skin -Eucerin cream twice daily to lower extremities History of rheumatoid arthritis -Continue home hydroxychloroquine -Hold leflunomide until platelet count improvement -Continue home as needed Ultram Hypertension -Hold metoprolol with intermittent low blood pressures -Continue to monitor Severe depression -Continue duloxetine -Risperdal added -Anticipate this is significantly playing into her above presentation Severe malnutrition -Supplements given -Dietitian following -Continue Marinol -CT was unremarkable for any abnormalities that would suggest reason for decreased p.o. intake -If p.o. intake does not improve may need NG tube for supplementation and this was discussed with patient -Continue to encourage p.o.--> seems that this is predominantly behavioral -Patient continues to refuse to eat--> discussed with and he is agreeable to PEG tube--> plan was for PEG tube today however platelets are lower than they have been and will currently be on hold until improvement DVT prophylaxis -Bivalirudin drip -SCDs CODE STATUS -Full code as per discussion with on admission Charges/Coding Visit Charges Inpatient E&M: 83468 [facility] H[facility] L3
[2021-12-07 12:45] LABS: Bedside Glucose 106 mg/dL (74-106)
[2021-12-07 12:51] LABS: Partial Thromboplast Time 28.5 Seconds (24.1-36.2)
[2021-12-07] MEDS: 0.9% Normal Saline 1,000 ML 999 ML IV ×2 (12:51→17:00)
--- NOTE | 2021-12-07 13:12 | CON.PCM.ON_ITS ---
Assessment & Plan Assessment/Plan (1) Thrombocytopenia: Status: Acute Code(s): D69.6 - Thrombocytopenia, unspecified Plan: Acute thrombocytopenia within 24-hours of admission and exposure to IV heparin. The deep vein thrombosis diagnosis preceded and was indication for IV heparin use on December 04, 2021. The altered mental status also precedes the onset of thrombocytopenia. The patient has a normocytic anemia but no biochemical evidence to suggest hemolysis or chronic bleeding. Her iron profile is consistent with anemia of chronic disease and inflammation. Her B12 is pending The 4 T score is 4 (intermediate probability for HIT, 10% risk) * Platelet count fall over 50% with gomez over 20,000: 2 points. * Although the platelet count drop occurred within 24 hours of admission, it is conceivable that the patient was exposed to heparin sometime between May through September 2021: One-point. * Thrombosis was found on admission prior to heparin: 0 points. * Other causes for thrombocytopenia, possible: 1-point. Heparin-induced thrombocytopenia antibody testing was sent and is pending. (2) Acute DVT (deep venous thrombosis): Status: Acute Code(s): I82.409 - Acute embolism and thrombosis of unspecified deep veins of unspecified lower extremity Plan: 1. Continue systemic anticoagulation with bivalirudin contingent placement of a feeding tube. Coagulation times return to baseline in approximately 1 hour following discontinuation of the infusion to allow invasive procedure(s). 2. Heparin has been discontinued. Await results for heparin-induced thrombocytopenia Antibody test. A negative test will make HIT unlikely. 3. Transfusion with platelets is not indicated in absence of active serious bleeding and is relatively contraindicated in presence of HIT. If platelet count above 50 K would be safe enough for an invasive procedure such as PEG tube placement. 4. Patient can be switched to an oral agent other than warfarin and should be continued until she resumes full ambulation and after at least 3 months of systemic anticoagulation for DVT. Impression and plan were discussed over the phone with Dr. Foy. Will follow-up when HIT antibody test results are available and 3 months after discharge and outpatient. Yocasta Rueda MD Molder Trimmer, [facility] Divisions of Medical Oncology & Hematology Department of Internal Medicine [place] [phone] This note was generated using a voice recognition system software. Although it was reviewed by the author prior to finalization, it may still contain incorrect words, spelling, and punctuation that were not noted when reviewing prior to saving. If a clinically significant typo or inaccurately typed phrase is noted, please notify the author. HPI Consult Data Date of Service:: 12/07/21 PCP / Referring Provider: Dr. Billy Church MD Attending: Dr. Argenis Foy DO Chief Complaint Chief Complaint: Debility, failure to thrive History of Present Illness History of Present Illness: 71-year-old female who was hospitalized on December 03, 2021 with altered mental status, generalized debility and failure to thrive. She has had a complicated course since May 2021 when she fractured her hip that eventually required a hip replacement in August 2021. Prior to admission she has been immobile at home taking care of by her . On admission she had a normal platelet count and was diagnosed with bilateral proximal DVTs. She was given IV heparin but within 24 hours her platelet count dropped and heparin was discontinued and currently replaced by bivalirudin pending placement of a feeding tube. According to her she has been an easy bruise there but she has not noted any abnormal bleeding. For dental detail representative platelet counts during her hospital stay please see table in lab section Advanced Directives Power of Chief Pilot: Yes Living Will: No [facility] Medical History Allergic rhinitis Back pain due to injury Breast lump Chronic mental illness Chronic renal failure, stage 3a Cognitive dysfunction Depression Fall at home Fracture of hip, right, closed Goiter History of blood transfusion History of revision of total replacement of right hip joint History of uterine fibroid HTN (hypertension) Hypertension Hypothyroidism Hypothyroidism Instability of right hip joint Kidney stones Malnourished Neuropathy Obesity (BMI 30-39.9) Osteoarthritis Physical debility Post-menopausal Posterior tibial tendinitis, left leg 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 02/19/13 [History Last Taken 06/06/21] cholecalciferol (vitamin D3) 50 mcg (2,000 unit) tablet 2,000 unit PO DAILY SUPPLEMENT 01/22/17 [History Last Taken 06/06/21] loratadine-pseudoephedrine ER 10 mg-240 mg tablet,extended [id number] (Claritin-D 24 Hour) 1 tab PO PRN PRN Sinus Symptoms 01/22/17 [History Last Taken 06/05/21] metoprolol tartrate 50 mg tablet 25 mg PO DAILY BP 08/17/21 [History Last Taken Unknown] polysaccharide iron complex 150 mg iron capsule (Ferrex) 150 mg PO DAILY supplement 09/20/21 [History Last Taken Unknown] acetaminophen 500 mg tablet 1,000 mg PO Q8 PRN fever or pain #0 tabs 09/29/21 [Rx Last Taken Unknown] duloxetine 60 mg capsule,delayed release 60 mg PO DAILY #30 caps 09/29/21 [Rx Last Taken Unknown] levothyroxine 150 mcg tablet 150 mcg PO DAILY THYROID #30 tabs 09/29/21 [Rx Last Taken 06/06/21] tramadol 50 mg tablet 50 mg PO Q6H PRN pain 7 days #28 tabs 09/29/21 [Rx Last Taken Unknown] meclizine 25 mg tablet 25 mg PO Q8H PRN PRN Dizziness #20 tabs 11/26/21 [Rx Last Taken Unknown] Allergy/AdvReac Type Severity Reaction Status Date / Time amoxicillin trihydrate AdvReac Vomiting Verified 12/03/21 11:42 [From Augmentin] Anesthetics - Mary Type- AdvReac Other Verified 12/03/21 16:07 Parabens [anesthesia - anesthetics] hydrocodone AdvReac Vomiting Verified 12/03/21 11:42 Family History Mother Arthritis Cancer Sister Arthritis Diabetes Father Bleeding disorder Heart disease Hypertension Son Bleeding disorder Surgical History H/O lumpectomy H/O spinal fusion H/O thyroidectomy History of bilateral knee replacement History of right hip hemiarthroplasty History of spinal fusion History of tonsillectomy and adenoidectomy Social History (Updated 12/03/21 @ 16:18 by Matilda Bruce) household members: spouse Smoking Status: Never smoker alcohol intake: current alcohol intake frequency: a few times a month substance use type: does not use ROS ROS Narrative Obtained from , patient has been immobile totally dependent upon him for care Constitutional Constitutional: Reports poor appetite; Denies fever(s) Cardiovascular Cardiovascular: Reports edema; Denies dyspnea Respiratory/Chest Respiratory/Chest: Denies hemoptysis Gastrointestinal Gastrointestinal: Denies abdominal pain, hematochezia or melena Genitourinary Genitourinary: Denies hematuria Integumentary Integumentary: Reports unusual bruising Neurologic Neurologic: Reports behavior changes and confusion Hematologic/Lymphatic Hematologic/Lymphatic: Reports easy bruising; Denies easy bleeding Physical Exam Narrative ECOG 4 Const General Appearance: ill appearing Positive for chronically Nutritional Appearance: obese HEENT normocephalic Head and Scalp: atraumatic Eyes no scleral icterus Neck no lymphadenopathy and no JVD Resp normal respiratory effort and clear to auscultation bilaterally Cardio regular rate and regular rhythm GI soft to palpation and non-tender Bladder / Kidney Exam: catheter in place Extremity Extremity Narrative: All extremities no acute arterial insufficiency signs General Extremity: edema bilateral lower extremity Details: moderate Skin General Skin Exam: ecchymosis and petechiae Psych Negative for mental status grossly normal Vital Signs Temperature 97.8 F 12/07/21 12:09 Temperature Source Temporal 12/07/21 12:09 Pulse Rate 81 12/07/21 12:09 Pulse Strength Weak (1+) 12/07/21 08:19 Respiratory Rate 17 12/07/21 12:09 Respiratory Effort Non-Labored 12/07/21 08:20 Respiratory Depth Normal 12/07/21 08:20 Respiratory Pattern Normal 12/07/21 08:20 Blood Pressure 88/60 L 12/07/21 12:09 Blood Pressure Mean 69 12/07/21 12:09 Blood Pressure Source Monitor 12/07/21 12:09 Blood Pressure Position Semi-Fowlers 12/07/21 12:09 Blood Pressure Location Right Arm 12/07/21 12:09 Pulse Ox 99 12/07/21 12:09 Oxygen Delivery Method Room Air 12/07/21 12:09 Laboratory Tests 12/03/21 12/04/21 12/05/21 11:43 05:15 06:10 Plt Count 211 125 L 95 L 12/06/21 12/07/21 12/07/21 05:45 03:56 07:55 Plt Count 101 L 78 L 78 L I reviewed patient's peripheral blood smear, specifically erythroid series there were no schistocytes, myeloid series showed a left shift but no blasts, platelets were decreased but present and occasional large platelets were seen Laboratory Results - last 24 hr 12/06/21 16:58: POC Glucose 154 H 12/06/21 18:41: APTT 80.3 H 12/06/21 22:35: POC Glucose 113 H 12/07/21 03:56: WBC 3.2 L, RBC 3.14 L, Hgb 8.5 L, Hct 27.0 L, MCV 86.0 D, MCH 27.1, MCHC 31.5 L D, RDW Std Deviation 53.4 H, RDW Coeff of Rita 17.2 H, Plt Count 78 L, MPV 11.1, Immature Gran % (Auto) 3.700 H, Neut % (Auto) 76.8 H, Lymph % (Auto) 16.1 L, [place] % (Auto) 3.1, Eos % (Auto) 0.0, Baso % (Auto) 0.3, Absolute Neuts (auto) 2.5, Absolute Lymphs (auto) 0.52 L, Nucleated RBC % 0, Differential Comment SCANNED, Diff Path Review June, Platelet Estimate MOD DEC, [place] Cells RARE 12/07/21 03:56: Sodium 141, Potassium 3.7, Chloride 112 H, Carbon Dioxide 21.0, Anion Gap 8, BUN 42 H, Creatinine 1.68 H, Estim Creat Clear Calc 32.73, Est GFR (MDRD) Af Amer 38 L, Est GFR (MDRD) Non-Af 32 L, BUN/Creatinine Ratio 25.0 H, Glucose 127 H, Calcium 7.8 L 12/07/21 03:56: APTT 50.9 H 12/07/21 03:56: PT 14.0, INR 1.1 12/07/21 03:56: TSH 1.37 12/07/21 03:56: Hemoglobin A1c 5.5 12/07/21 06:26: POC Glucose 97 12/07/21 07:55: WBC 3.2 L, RBC 3.05 L, Hgb 8.7 L, Hct 25.4 L, MCV 83.3, MCH 28.5, MCHC 34.3 D, RDW Std Deviation 52.2 H, RDW Coeff of Rita 17.2 H, Plt Count 78 L, MPV 11.0, Immature Gran % (Auto) 3.100 H, Neut % (Auto) 76.6 H, Lymph % (Auto) 16.6 L, [place] % (Auto) 3.4, Eos % (Auto) 0.3, Baso % (Auto) 0.0, Absolute Neuts (auto) 2.4, Absolute Lymphs (auto) 0.53 L, Nucleated RBC % 0, Diff Path Review June, Platelet Estimate SLT DEC, Plt Morphology Comment LARGE 12/07/21 07:55: Lactate Dehydrogenase 274 H 12/07/21 12:07: POC Glucose 106 12/07/21 12:15: APTT 28.5 Diagnostic Data Chest X-Ray 12/03/21 12:27 IMPRESSION: Normal x-ray examination of the chest. Electronically Signed: Luis Fernando Larose MD at 12:38 EDT , Echocardiogram 12/03/21 14:51 Interpretation Summary Normal LV size. Left ventricular systolic function is normal. The estimated ejection fraction is 55 %. Pulmonary artery systolic pressure is 27 mmHg. Stage 1 diastolic dysfunction. The study was technically difficult. Ordering Physician: Argenis Foy Referring Physician: Billy Church Performed By: Daniela Patterson, NEGARCS, RVT Venous Doppler Study 12/03/21 14:51 Interpretation Summary Acute deep vein thrombosis is noted in the right common femoral vein, right femoral vein, right popliteal vein. Unable to visual below the knee. Acute deep vein thrombosis is noted in the left common femoral vein, left femoral vein, left popliteal vein, left tibio-peroneal trunk vein, left posterior tibial vein, left peroneal vein. Acute superficial vein thrombosis is noted in the right great saphenous vein. Acute superficial vein thrombosis is noted in the left great saphenous vein. Ordering Physician: Argenis Foy Referring Physician: Billy Church Performed By: Tiana Lara, T Abdomen CT 12/04/21 11:50 IMPRESSION: 2 mm calculus in the proximal right ureter with mild right hydronephrosis. Minimal right pleural thickening. Stable left renal cysts. Distended urinary bladder. Increased density in the gallbladder lumen suggestive of either gallstones or sludge Electronically Signed: Brandon Sosa MD at 15:18 EDT , Renal Ultrasound 12/05/21 07:10 IMPRESSION: Mass process posterior urinary bladder 8.05 x 4.95 x 1.4 cm. This could represent hemorrhage or transitional cell carcinoma. Simple cyst of the left kidney 2.6 x 3.0 x 2.6 cm. Electronically Signed: Andres Veras MD, WILL at 12:54 EDT , Abdomen/Pelvis CT 12/05/21 15:32 IMPRESSION: Stable findings. 2 mm calculus proximal right ureter with mild right hydronephrosis. 2 mm nonobstructing left upper pole calculus. Sludge within gallbladder lumen. Sigmoid diverticulosis. Simple cyst left kidney. Status post right hip arthroplasty. Status post bilateral pedicle screw fusion L4-5. Electronically Signed: Andres Veras MD, WILL at 16:34 EDT ,
--- NOTE | 2021-12-07 13:42 | RAD_ITS ---
STUDY: X-RAY CHEST REASON FOR EXAM: Female, 71 years old. picc line placement TECHNIQUE: Single AP portable view of the chest. COMPARISON: Comparison is made with prior study 12/03/2001. FINDINGS: EKG electrodes are seen. A right-sided PICC line catheter has been placed. The tip is at the junction of the superior vena cava and right atrium. Hyperinflation. The lungs are clear. There is no demonstrated pleural abnormality. Normal size heart. Normal mediastinum and nathalia. Normal visualized pulmonary arteries. There is atherosclerotic tortuosity of the aortic arch and descending thoracic aorta. There are diffuse degenerative changes of the visualized thoracic spine. There is degenerative osteoarthritis of the bilateral shoulders. There is no demonstrated abnormality of the visualized soft tissue structures of the upper abdomen. RAD/CXR for Line Placement IMPRESSION: The tip of the right PICC line catheter is at the junction of the superior vena cava and right atrium. Hypoinflation. The lungs are clear. Electronically Signed: Brandon Sosa MD at 14:05 EDT ,
[2021-12-07 14:23] LABS: Ferritin 1105 ng/mL (8-252); Iron 135 ug/dL (50-170); Iron Binding Capacity,Total 272 ug/dL (250-450); PERCENT IRON SATURATION 49.6 % (15.0-55.0)
[2021-12-07] MEDS: Ensure Plus High Protein 120 ML LIQUID PO ×3 (15:12→21:17)
[2021-12-07 17:31] LABS: Absolute Neutrophil Count 1.7 X10^3/uL (2.0-7.7); Hematocrit 23.3 % (37-47); Hemoglobin 7.7 g/dL (12.0-15.0); Lymphocyte % 17.5 % (19-41); Mean Corpuscular Hgb 27.7 pg (27.0-32.0); Mean Corpuscular Volume 83.8 fL (81-99); Mean Platelet Vol. 11.1 fl (6.2-12.0); Monocyte# 0.08 X10^3/uL; Monocyte% 3.5 % (0-10); NRBC Flagged by Analyzer 0 % (0-5); Neutrophil # 1.72 X10^3/uL (2.7-7.7); Neutrophil % 75.1 % (47-70); POSITIVE COUNT YES; POSITIVE DIFFERENTIAL YES; Platelet Count 72 K/mm3 (150-450); RBC Distribution Width SD 52.1 fl (35.1-43.9); Red Blood Count 2.78 M/mm3 (4.2-5.4); White Blood Count 2.3 K/mm3 (4.4-11.0)
[2021-12-07 17:36] LABS: Differential Indicated SCAN CRITERIA MET
[2021-12-07] MEDS: Hydroxychloroquine 200 MG Tablet PO (17:38)
[2021-12-07] MEDS: Tamsulosin HCl 0.4 MG Capsule PO (17:38)
[2021-12-07 17:50] LABS: Bedside Glucose 100 mg/dL (74-106)
[2021-12-07 17:51] LABS: Partial Thromboplast Time 219.2 Seconds (24.1-36.2)
--- NOTE | 2021-12-07 17:54 | NURSING ---
spoke with pharmacist on ptt hold x 1 hour restart at 3.7 ptt 2 hours after restart
[2021-12-07 18:13] LABS: Differential Comment SEE COMMENTS
[2021-12-07 18:14] LABS: Anisocytosis 1+; Hypochromasia RARE; Macrocytosis RARE; Microcytosis RARE; Platelet Estimate MOD DEC (ADEQ); Red Cell Morphology N CHROM NORMAL (NORM C&C)
[2021-12-07 19:23] LABS: Vitamin B12 222 pg/mL (211-911)
[2021-12-07 21:23] LABS: Partial Thromboplast Time 78.1 Seconds (24.1-36.2)
[2021-12-07 22:16] LABS: Bedside Glucose 118 mg/dL (74-106)
[2021-12-07 23:15] LABS: Hematocrit 22.4 % (37-47); Hemoglobin 7.5 g/dL (12.0-15.0)
[2021-12-08] VITALS (21 sets, daily range): BP systolic 83–119; BP diastolic 63–79; PULSE 64–93; RESP 14–19; TEMP 34.7–36.8; O2SAT 94–100; BMI 24.3
[2021-12-08 03:17] LABS: Hematocrit 21.5 % (37-47); Hemoglobin 7.2 g/dL (12.0-15.0); Mean Corp Hgb Conc 33.5 g/dL (32-36); Mean Corpuscular Hgb 27.9 pg (27.0-32.0); Mean Corpuscular Volume 83.3 fL (81-99); Mean Platelet Vol. 11.4 fl (6.2-12.0); POSITIVE COUNT YES; POSITIVE DIFFERENTIAL YES; POSITIVE MORPHOLOGY YES; Platelet Count 72 K/mm3 (150-450); RBC Distribution Width CV 16.8 % (11.6-14.6); RBC Distribution Width SD 51.2 fl (35.1-43.9); Red Blood Count 2.58 M/mm3 (4.2-5.4); White Blood Count 2.1 K/mm3 (4.4-11.0)
[2021-12-08 03:18] LABS: Differential Indicated MANUAL DIFF
[2021-12-08 03:24] LABS: Partial Thromboplast Time 63.1 Seconds (24.1-36.2)
[2021-12-08 03:56] LABS: Anion Gap 5 (5-15); BUN 42 mg/dL (7-18); BUN/Creat Ratio 30.2 RATIO (10-20); Calcium,Total 7.4 mg/dL (8.5-10.1); Chloride 113 mmol/L (98-107); Creatinine, Serum 1.39 mg/dL (0.55-1.02); EST Glomerular Filtration Rate 40 mL/min (>60); Est Glom Filt Rate - Afr Amer 48 mL/min (>60); Estimated Creatinine Clearance 39.56 ml/min; Glucose 110 mg/dL (74-106); Potassium 3.6 mmol/L (3.5-5.1); Sodium Level 142 mmol/L (136-145)
[2021-12-08 04:06] LABS: Total Cells Counted 100 (MANUAL DIFF)
[2021-12-08 04:10] LABS: Lymphocyte 9 % (19-41); Monocyte 1 % (0-10); Myelocyte 1 % (0-0); Neutrophil-Band 9 % (0-5); Neutrophil-Segmented 86 % (47-70)
[2021-12-08 04:11] LABS: Platelet Estimate MOD DEC (ADEQ)
[2021-12-08 04:12] LABS: Absolute Lymphocyte Count 0.19 X10^3/uL (0.83-4.51); Absolute Neutrophil Count 1.9 X10^3/uL (2.0-7.7); Acanthocytes RARE; Hypochromasia 1+; Lymphocyte # 0.19 X10^3/ul (0.83-4.51); Neutrophil # 1.89 X10^3/uL (2.7-7.7); Ovalocyte RARE
[2021-12-08] MEDS: 0.9% Saline Lock 10 ML Syringe IV (05:54)
[2021-12-08] MEDS: TITRATION PARAMETER CHANGE 1 EACH IV (05:54)
[2021-12-08 06:56] LABS: Bedside Glucose 104 mg/dL (74-106)
--- NOTE | 2021-12-08 07:50 | PN.HOSP_ITS ---
Subjective Subjective Follow-up for severe thrombocytopenia, suspected HIT Albutropin drip. EGD/PEG tube postponed for Saturday due to thrombocytopenia Objective Data Objective Data Vital Signs: Vital Signs Temp Pulse Resp BP Pulse Ox O2 Del Method 98.3 F 71 14 93/69 96 Room Air 12/08/21 06:00 12/08/21 07:00 12/08/21 07:00 12/08/21 07:00 12/08/21 07:06 12/08/21 07:06 Oxygen Delivery Method Room Air Weight: 194 lb 10.691 oz Body Mass Index (BMI) 24.3 Intake & Output: Intake and Output for Last 24 Hours 12/06/21 12/07/21 12/08/21 23:59 23:59 23:59 Intake Total 1468.02 / 1468.02 4235.04 / 4295.04 68.08 / 68.08 Output Total 550 / 550 325 / 425 250 / 250 Balance 918.02 / 918.02 3910.04 / 3870.04 -181.92 / -181.92 Medical Nutrition Assessment Dietitian: Malnutrition Criteria Met Start: 12/04/21 14:18 Freq: Status: Active Protocol: Document 12/07/21 11:03 AG (Rec: 12/07/21 11:03 [id number]) Nutrition Malnutrition Evidence of Malnutrition Exists Yes Malnutrition (severe): Chronic Evidenced By Suboptimal Energy Intake ( Severe),Weight Loss (Severe) Clinical Problem Chronic Disease or Condition Related Malnutrition Etiology severe, chronic malnutrition r /t inadequate energy intake d/ t depression Signs/Symptoms as evidenced by unintentional wt loss of 18.7kg/20% x 2 months; 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 Concerns for refeeding- recommend close monitoring of electrolytes. See RD documentation for enteral nutrition recommendations for when PEG placed. Lab / Micro Data Result Diagrams: 12/08/21 03:00 12/08/21 03:00 Labs: Laboratory Results - last 24 hr 12/07/21 03:56: Hemoglobin A1c 5.5 12/07/21 07:55: WBC 3.2 L, RBC 3.05 L, Hgb 8.7 L, Hct 25.4 L, MCV 83.3, MCH 28.5, MCHC 34.3 D, RDW Std Deviation 52.2 H, RDW Coeff of Rita 17.2 H, Plt Count 78 L, MPV 11.0, Immature Gran % (Auto) 3.100 H, Neut % (Auto) 76.6 H, Lymph % (Auto) 16.6 L, Mckenzie % (Auto) 3.4, Eos % (Auto) 0.3, Baso % (Auto) 0.0, Absolute Neuts (auto) 2.4, Absolute Lymphs (auto) 0.53 L, Nucleated RBC % 0, Diff Path Review Oxana redman Platelet Estimate SLT DEC, Plt Morphology Comment LARGE 12/07/21 07:55: Lactate Dehydrogenase 274 H 12/07/21 07:55: Iron 135, TIBC 272, Iron Saturation 49.6, Ferritin 1105 H 12/07/21 12:07: POC Glucose 106 12/07/21 12:15: APTT 28.5 12/07/21 17:08: WBC 2.3 L, RBC 2.78 L, Hgb 7.7 L, Hct 23.3 L, MCV 83.8, MCH 27.7, MCHC 33.0, RDW Std Deviation 52.1 H, RDW Coeff of Rita 17.0 H, Plt Count 72 L, MPV 11.1, Immature Gran % (Auto) 3.900 H, Neut % (Auto) 75.1 H, Lymph % (Au to) 17.5 L, Mckenzie % (Auto) 3.5, Eos % (Auto) 0.0, Baso % (Auto) 0.0, Absolute Neuts (auto) 1.7 L, Absolute Lymphs (auto) 0.40 L, Nucleated RBC % 0, Differential Comment SEE COMMENTS, Diff Path Review Oxana redman Platelet Estimate MOD DEC, RBC Morphology N CHROM, Hypochromasia RARE, Anisocytosis 1+, Microcytosis RARE, Macrocytosis RARE 12/07/21 17:08: Vitamin B12 222 12/07/21 17:08: APTT 219.2 H* 12/07/21 17:27: POC Glucose 100 12/07/21 21:05: APTT 78.1 H 12/07/21 21:15: POC Glucose 118 H 12/07/21 22:50: Hgb 7.5 L, Hct 22.4 L 12/08/21 01:00: APTT 66.0 H 12/08/21 03:00: WBC 2.1 L, RBC 2.58 L, Hgb 7.2 L, Hct 21.5 L, MCV 83.3, MCH 27.9, MCHC 33.5, RDW Std Deviation 51.2 H, RDW Coeff of Rita 16.8 H, Plt Count 72 L, MPV 11.4, Neut % (Auto) Not Reportable, Absolute Neuts (auto) 1.9 L, Absolute Lymphs (auto) 0.19 L, Total Counted 100, Neutrophils % (Manual) 86 H, Band Neutrophils % 9 H, Lymphocytes % (Manual) 9 L, Monocytes % (Manual) 1, Myelocytes % 1 H, Diff Path Review May , Platelet Estimate MOD DEC, Hypochromasia 1+, Ovalocytes RARE, Acanthocytes (Spur) RARE 12/08/21 03:00: Sodium 142, Potassium 3.6, Chloride 113 H, Carbon Dioxide 24.0, Anion Gap 5, BUN 42 H, Creatinine 1.39 H, Estim Creat Clear Calc 39.56, Est GFR (MDRD) Af Amer 48 L, Est GFR (MDRD) Non-Af 40 L, BUN/Creatinine Ratio 30.2 H, Glucose 110 H, Calcium 7.4 L 12/08/21 03:00: APTT 63.1 H 12/08/21 06:36: POC Glucose 104 Micro: Microbiology 12/07/21 16:55 Stool Stool Occult Blood (DONNELL) - Final Occult Blood Positive 12/03/21 14:35 Nasal Secretion SARS-CoV-2 Antigen (Rapid) - Final Radiography Diagnostic Testing: Radiology Impression Chest X-Ray 12/07/21 13:42 IMPRESSION: The tip of the right PICC line catheter is at the junction of the superior vena cava and right atrium. Hypoinflation. The lungs are clear. Electronically Signed: Brandon Sosa MD at 14:05 EDT , Rhythm Strip Rhythm Strip: Sinus Tach Rate: 108 Ectopy: None Physical Exam Narrative General: Awake, lethargic, weak, loss of appetite HEENT: Atraumatic, PERRLA, EOMI, Normocephalic Oral: Oral mucosa moist. No Gingival or Mucosal Lesions/ Ulcerations Neck: Supple, No JVD, Negative Carotid Bruits Lungs: Air entry diminished in bilateral lung bases. No crepitation/rhonchi Cardiovascular: Regular rate, Regular Rhythm, Normal S1, Normal S2, No murmurs Abdomen: Bowel Sounds Present, Soft, Non Tender, Non-Distended : No renal angle tenderness. No suprapubic tenderness. Extremities: Bilateral nonpitting lower leg edema, Capillary Refill Less than 3 Seconds Skin: No rashes, No breakdown Musculoskeletal: Left leg about one half times right leg, left tender calf. ROM restricted at knee and hip joints. Neurological: Cranial nerves II-XII grossly intact, DTR 2+/4, muscle strength 3/5 at major joints of lower extremity Psych/Mental Status: Flat affect. Const alert and no apparent distress Constitutional Narrative: Elderly white female lying in bed, patient appears older than stated age, oriented to self, place, and year as well as POTUS but unable to tell me what month it is, intermittently refuses to talk General Appearance: cooperative Orientation / Consciousness: confused HEENT normocephalic, head/scalp atraumatic and hearing grossly normal bilaterally Eyes PERRL, EOMs intact bilaterally and conjunctivae normal Eyes Narrative: Neck no lymphadenopathy, supple, no JVD and no carotid bruits Neck Narrative: Trachea midline, no thyroid enlargement Resp normal respiratory effort, no retractions, no use of accessory muscles and clear to auscultation bilaterally Auscultation: Negative for crackles, rales, rhonchi or wheezes Cardio regular rate, regular rhythm, S1 normal heart sound, S2 normal heart sound, no murmurs, no rub, no gallops and no clicks Cardio Narrative: Intermittent ectopic beats with PVCs GI normal to inspection, nondistended, normoactive bowel sounds, soft to palpation and non-tender; Negative for hepatosplenomegaly Extremity Extremity Narrative: Trace left lower extremity edema, no right lower extremity edema, no cyanosis or clubbing Skin no wounds, No skin turgor normal, no jaundice, no petechiae and no mottling Skin Narrative: Skin on legs is extremely dry and flaking Hair: brittle and general thinning Neuro CN's II-XII intact bilaterally, moves all extremities and no focal motor deficits Neuro Narrative: Speech is normal when patient will communicate however at times she continues to ignore questioning Sensorium / Orientation: awake, alert, oriented to person and oriented to place Psych Psych Narrative: Affect is extremely flat and mood is depressed Mood & Affect: depressed Assessment & Plan Assessment/Plan (1) Acute kidney injury: (2) Toxic metabolic encephalopathy: (3) Severe malnutrition: (4) Thrombocytopenia: PLAN: Plan This 71-year-old female was admitted with altered mental status, delusion; was talking to her mother who long time ago. Patient behavior was not appropriate/derealization Toxic/metabolic encephalopathy, may be related to polypharmacy. Patient on meclizine. Acute encephalopathy has resolved. B12 low at 222, on B12 oral replacement -TSH within normal limits JACOB secondary to severe dehydration, prerenal/obstructive: -Serum creatinine is 1.2-->0.3 above baseline on presentation -Serum is now able lysed and trending back down and now 1.66 -Continue IV fluids with LR 75 cc/h until patient is able to take p.o. adequately to maintain appropriate hydration -Renal ultrasound showed a possible mass posterior to the bladder versus hematoma--> Blanc placed and significant sediment and what looks like to be blood--> CT done with no comment with regards to the above--> Urology has seen the patient and will follow as an outpatient with no urgent needs for intervention at this time -FeNa is 6.9% on 12/06/2021 most consistent with obstructive -Blanc placed and serum creatinine is trending down at this point -Avoid nephrotoxins. Serum creatinine 1.39, BUN 42. -Repeat BMP in a.m. -Would leave Blanc in at discharge Thrombocytopenia: Certain differential diagnosis are HIT. Pretest probability, of 4 T score is 4 points intermediate probability 14%. Peripheral smear pending. MPV normal. -Heparin-induced platelet antibody pending -Heparin drip discontinued -Start bivalirudin drip -We will convert to oral agents once PEG tube is placed but need IV with rapid conversion until that point time -Hematology/oncology consult pending--> Case was discussed with Dr. Iscarus -PEG tube currently on hold due to severe thrombocytopenia Normocytic normochromic acute anemia with history of anemia of chronic disease/inflammatory anemia -Hemoglobin low 7.2 g, steadily getting low from baseline 11 to 12 g. Stool for occult blood positive. Transfuse hemoglobin less than 7 g. Abnormal EKG -Current EKG with new T wave inversions in the inferior lateral leads -Patient with no active chest pain and symptoms are fairly nonspecific -Cardiac enzymes are normal x3 -Echocardiogram was unimpressive showing an EF of 55% with stage I diastolic dysfunction and a pulmonary artery systolic pressure of 27 mmHg Debility -Patient with 2 recent hip surgeries for replacement then revision secondary to recurrent dislocations -PT/OT following-participation is quite limited -May need placement at discharge Left lower extremity DVT-acute -Heparin drip initiated yesterday with CT of the abdomen pelvis pending -Await urology input and if no procedures required will convert to Eliquis as noted below -Plan to convert to Eliquis 10 mg p.o. twice daily for 7 days then 5 mg p.o. when longer-term anticoagulation is appropriate 2 mm right ureteral calculus with mild right hydronephrosis -Continue Flomax -Continue IV fluids -Urology has evaluated the patient and no need for any intervention Dry skin -Eucerin cream twice daily to lower extremities History of rheumatoid arthritis -Continue home hydroxychloroquine -Hold leflunomide until platelet count improvement -Continue home as needed Ultram Hypertension -Hold metoprolol with intermittent low blood pressures -Continue to monitor Severe depression -Continue duloxetine -Risperdal added -Anticipate this is significantly playing into her above presentation Severe malnutrition -Supplements given -Dietitian following -Continue Marinol -CT was unremarkable for any abnormalities that would suggest reason for decreased p.o. intake -If p.o. intake does not improve may need NG tube for supplementation and this was discussed with patient -Continue to encourage p.o.--> seems that this is predominantly behavioral -Patient continues to refuse to eat--> discussed with and he is agreeable to PEG tube--> plan was for PEG tube today however platelets are lower than they have been and will currently be on hold until improvement DVT prophylaxis -Bivalirudin drip -SCDs CODE STATUS -Full code as per discussion with on admission Total time of the visit including total time spent in counseling or coordination of care, (more than 50% of the total time, spent in obtaining medical information from nurses and other ancillary care providers,explaining to the patient about labs, imaging, diagnosis and management of active complex medical conditions), discussion with consultants surgeon and manager of organizational development, review of labs and imaging is 40 minutes. Microbiology Past 72 Hours 12/07/21 16:55 Stool Stool Occult Blood (DONNELL) - Final Occult Blood Positive Laboratory Results 12/07/21 17:08: WBC 2.3 L, RBC 2.78 L, Hgb 7.7 L, Hct 23.3 L, MCV 83.8, MCH 27.7, MCHC 33.0, RDW Std Deviation 52.1 H, RDW Coeff of Rita 17.0 H, Plt Count 72 L, MPV 11.1, Immature Gran % (Auto) 3.900 H, Neut % (Auto) 75.1 H, Lymph % (Auto) 17.5 L, Mckenzie % (Auto) 3.5, Eos % (Auto) 0.0, Baso % (Auto) 0.0, Absolute Neuts (auto) 1.7 L, Absolute Lymphs (auto) 0.40 L, Nucleated RBC % 0, Differential Comment SEE COMMENTS, Diff Path Review May foll, Platelet Estimate MOD DEC, RBC Morphology N CHROM, Hypochromasia RARE, Anisocytosis 1+, Microcytosis RARE, Macrocytosis RARE 12/07/21 17:08: Vitamin B12 222 12/07/21 17:08: APTT 219.2 H* 12/07/21 17:27: POC Glucose 100 12/07/21 21:05: APTT 78.1 H 12/07/21 21:15: POC Glucose 118 H 12/07/21 22:50: Hgb 7.5 L, Hct 22.4 L 12/08/21 01:00: APTT 66.0 H 12/08/21 03:00: WBC 2.1 L, RBC 2.58 L, Hgb 7.2 L, Hct 21.5 L, MCV 83.3, MCH 27.9, MCHC 33.5, RDW Std Deviation 51.2 H, RDW Coeff of Rita 16.8 H, Plt Count 72 L, MPV 11.4, Neut % (Auto) Not Reportable, Absolute Neuts (auto) 1.9 L, Absolute Lymphs (auto) 0.19 L, Total Counted 100, Neutrophils % (Manual) 86 H, Band Neutrophils % 9 H, Lymphocytes % (Manual) 9 L, Monocytes % (Manual) 1, M yelocytes % 1 H, Diff Path Review May foll, Platelet Estimate MOD DEC, Hypochromasia 1+, Ovalocytes RARE, Acanthocytes (Spur) RARE 12/08/21 03:00: Sodium 142, Potassium 3.6, Chloride 113 H, Carbon Dioxide 24.0, Anion Gap 5, BUN 42 H, Creatinine 1.39 H, Estim Creat Clear Calc 39.56, Est GFR (MDRD) Af Amer 48 L, Est GFR (MDRD) Non-Af 40 L, BUN/Creatinine Ratio 30.2 H, Glucose 110 H, Calcium 7.4 L 12/08/21 03:00: APTT 63.1 H 12/08/21 06:36: POC Glucose 104 12/08/21 08:50: APTT 63.5 H 12/08/21 11:40: POC Glucose 92 Charges/Coding Visit Charges Inpatient E&M: 87159 Subs Hosp L3
[2021-12-08] MEDS: Lactated Ringers 1,000 ML 75 ML IV ×2 (10:29→23:55)
[2021-12-08] MEDS: Hydroxychloroquine 200 MG Tablet PO ×2 (11:44→17:13)
[2021-12-08] MEDS: Iron Polysaccharide Complex 150 MG CAPSULE PO (11:44)
[2021-12-08] MEDS: DULoxetine Hcl 60 MG Capsule PO (11:45)
[2021-12-08] MEDS: Petrolatum 33% Tube 1 APPLIC TOPICAL ×2 (11:45→21:03)
[2021-12-08] MEDS: RisperiDONE 0.5 MG Tablet PO ×2 (11:45→21:03)
[2021-12-08 12:10] LABS: Bedside Glucose 92 mg/dL (74-106)
--- NOTE | 2021-12-08 12:45 | PN.SURG_ITS ---
Subjective Subjective Patient's platelets are still 72. Patient is on argatroban drip. Objective Data Objective Data Vital Signs: Vital Signs Temp Pulse Resp BP Pulse Ox O2 Del Method 97.6 F L 93 19 H 109/67 99 Room Air 12/08/21 12:00 12/08/21 12:00 12/08/21 12:00 12/08/21 12:00 12/08/21 12:00 12/08/21 12:00 Oxygen Delivery Method Room Air Weight: 194 lb 10.691 oz Body Mass Index (BMI) 24.3 Intake & Output: Intake and Output for Last 24 Hours 12/06/21 12/07/21 12/08/21 23:59 23:59 23:59 Intake Total 1468.02 / 1468.02 4235.04 / 4295.04 1068.08 / 1068.08 Output Total 550 / 550 325 / 425 525 / 525 Balance 918.02 / 918.02 3910.04 / 3870.04 543.08 / 543.08 Medical Nutrition Assessment Dietitian: Malnutrition Criteria Met Start: 12/04/21 14:18 Freq: Status: Active Protocol: Document 12/08/21 11:48 RMA (Rec: 12/08/21 11:48 RMA [id number]) Nutrition Malnutrition Evidence of Malnutrition Exists Yes Malnutrition (severe): Chronic Evidenced By Suboptimal Energy Intake ( Severe),Weight Loss (Severe) Clinical Problem Chronic Disease or Condition Related Malnutrition Etiology severe, chronic malnutrition r /t inadequate energy intake d/ t depression Signs/Symptoms as evidenced by unintentional wt loss of 18.7kg/20% x 2 months; estimated PO intake meeting <50% of estimated energy needs x 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 2.) Concerns for refeeding- recommend close monitoring of electrolytes. 3.) When PEG placed tentatively scheduled for Monday 12/11: Recommend Jevity 1.5 boluses- pt will not be appropriate for continuous feeds given mental status, concerns pt will pull at tubing. Per physician documentation, pt will have abd binder to keep PEG in place. Would start w/ 100mL bolus Jevity 1.5 5x/day with 40mL H2O flush before and after each bolus to provide 750 calories, 32 g protein, and 780mL total fluid/day. As pt tolerates, would increase boluses by 70mL to 170mL 5x/ day w/ 60mL H2O flush before and after each bolus. Goal rate would be 240mL Jevity 1.5 bolus 5x/day w/100mL H2O flush before and after each bolus to provide 1800 calories , 76 g protein, and 1912mL total fluid/day. Lab / Micro Data Result Diagrams: 12/08/21 03:00 12/08/21 03:00 Labs: Laboratory Results - last 24 hr 12/07/21 07:55: Iron 135, TIBC 272, Iron Saturation 49.6, Ferritin 1105 H 12/07/21 12:07: POC Glucose 106 12/07/21 12:15: APTT 28.5 12/07/21 17:08: WBC 2.3 L, RBC 2.78 L, Hgb 7.7 L, Hct 23.3 L, MCV 83.8, MCH 27.7 , MCHC 33.0, RDW Std Deviation 52.1 H, RDW Coeff of Rita 17.0 H, Plt Count 72 L, MPV 11.1, Immature Gran % (Auto) 3.900 H, Neut % (Auto) 75.1 H, Lymph % (Auto) 17.5 L, Barbour % (Auto) 3.5, Eos % (Auto) 0.0, Baso % (Auto) 0.0, Absolute Neuts (auto) 1.7 L, Absolute Lymphs (auto) 0.40 L, Nucleated RBC % 0, Differential C omment SEE COMMENTS, Diff Path Review May foll, Platelet Estimate MOD DEC, RBC Morphology N CHROM, Hypochromasia RARE, Anisocytosis 1+, Microcytosis RARE, Macrocytosis RARE 12/07/21 17:08: Vitamin B12 222 12/07/21 17:08: APTT 219.2 H* 12/07/21 17:27: POC Glucose 100 12/07/21 21:05: APTT 78.1 H 12/07/21 21:15: POC Glucose 118 H 12/07/21 22:50: Hgb 7.5 L, Hct 22.4 L 12/08/21 01:00: APTT 66.0 H 12/08/21 03:00: WBC 2.1 L, RBC 2.58 L, Hgb 7.2 L, Hct 21.5 L, MCV 83.3, MCH 27.9, MCHC 33.5, RDW Std Deviation 51.2 H, RDW Coeff of Rita 16.8 H, Plt Count 72 L, MPV 11.4, Neut % (Auto) Not Reportable, Absolute Neuts (auto) 1.9 L, Absolute Lymphs (auto) 0.19 L, Total Counted 100, Neutrophils % (Manual) 86 H, Band Neutrophils % 9 H, Lymphocytes % (Manual) 9 L, Monocytes % (Manual) 1, Myelocytes % 1 H, Diff Path Review May foll, Platelet Estimate MOD DEC, Hypochromasia 1+, Ovalocytes RARE, Acanthocytes (Spur) RARE 12/08/21 03:00: Sodium 142, Potassium 3.6, Chloride 113 H, Carbon Dioxide 24.0, Anion Gap 5, BUN 42 H, Creatinine 1.39 H, Estim Creat Clear Calc 39.56, Est GFR (MDRD) Af Amer 48 L, Est GFR (MDRD) Non-Af 40 L, BUN/Creatinine Ratio 30.2 H, Glucose 110 H, Calcium 7.4 L 12/08/21 03:00: APTT 63.1 H 12/08/21 06:36: POC Glucose 104 12/08/21 11:40: POC Glucose 92 Micro: Microbiology 12/07/21 16:55 Stool Stool Occult Blood (DONNELL) - Final Occult Blood Positive 12/03/21 14:35 Nasal Secretion SARS-CoV-2 Antigen (Rapid) - Final Radiography Diagnostic Testing: Radiology Impression Chest X-Ray 12/07/21 13:42 IMPRESSION: The tip of the right PICC line catheter is at the junction of the superior vena cava and right atrium. Hypoinflation. The lungs are clear. Electronically Signed: Brandon Sosa MD at 14:05 EDT , Rhythm Strip Rhythm Strip: Sinus Tach Rate: 108 Ectopy: None Physical Exam Const no apparent distress Constitutional Narrative: Patient would occasionally answer questions with a yes or no, flat affect Resp normal respiratory effort Cardio regular rate GI GI Narrative: Soft, nondistended, nontender Assessment & Plan Assessment/Plan (1) Severe malnutrition: (2) Acute DVT (deep venous thrombosis): (3) Thrombocytopenia: PLAN: Plan Patient's thrombocytopenia is still 72, I would prefer to be closer to 100 as patient will need to go back on anticoagulation after the procedure due to extensive DVT. We will hold off on PEG today possibly do on Saturday see how her platelets do over the weekend. Discussed with Dr. Mclaughlin. Le Muller M.D. Pager: [phone] [facility] [address] [place] [address], [facility], [address] [place] [address] Office: [phone] Charges/Coding Visit Charges Inpatient E&M: 67914 Subs Hosp L2
[2021-12-08 13:26] LABS: Partial Thromboplast Time 63.5 Seconds (24.1-36.2)
[2021-12-08] MEDS: Ensure Plus High Protein 120 ML LIQUID PO ×2 (14:39→21:02)
--- NOTE | 2021-12-08 15:32 | NURSING ---
As PTTs are now Q 12 and no longer Q2, patient has been taken off of stepdown status
[2021-12-08 15:44] LABS: Pathologist Review Reviewed
[2021-12-08 15:50] LABS: Pathologist Review Reviewed
[2021-12-08] MEDS: Dronabinol 2.5 MG Capsule PO (17:13)
[2021-12-08 17:25] LABS: Bedside Glucose 95 mg/dL (74-106)
--- NOTE | 2021-12-08 17:44 | NURSING ---
Pt's hands with edema; gold band wedding ring removed from patient's finger, placed in a container and locked in the medication sink maker patient's room. Will be returned/sent home with spouse tomorrow (12/09).
--- NOTE | 2021-12-08 18:21 | CM.ED ---
ISAÍAS Note ISAÍAS called Trisha at [facility]. Trisha was advised that patient is getting a peg tube on Saturday so at this time patient is not medically clear. Trisha said that they still have admission packet for patient. ISAÍAS contacted Digna at [facility]. [facility] cannot take PEG tube. Roxanna FLORENTINO
[2021-12-08] MEDS: Tamsulosin HCl 0.4 MG Capsule PO (18:24)
[2021-12-08 21:13] LABS: Partial Thromboplast Time 50.3 Seconds (24.1-36.2)
[2021-12-08 23:20] LABS: Bedside Glucose 101 mg/dL (74-106)
[2021-12-09] VITALS (10 sets, daily range): BP systolic 102–125; BP diastolic 69–81; PULSE 81–106; RESP 16–18; TEMP 35.6–36.6; O2SAT 93–98
[2021-12-09 05:56] LABS: Hematocrit 25.2 % (37-47); Hemoglobin 8.3 g/dL (12.0-15.0); Mean Corp Hgb Conc 32.9 g/dL (32-36); Mean Corpuscular Hgb 27.8 pg (27.0-32.0); Mean Corpuscular Volume 84.3 fL (81-99); Mean Platelet Vol. 10.8 fl (6.2-12.0); POSITIVE COUNT YES; POSITIVE DIFFERENTIAL YES; POSITIVE MORPHOLOGY YES; Platelet Count 78 K/mm3 (150-450); RBC Distribution Width CV 17.1 % (11.6-14.6); RBC Distribution Width SD 52.7 fl (35.1-43.9); Red Blood Count 2.99 M/mm3 (4.2-5.4); White Blood Count 2.9 K/mm3 (4.4-11.0)
[2021-12-09 06:02] LABS: Differential Indicated MANUAL DIFF
[2021-12-09 06:35] LABS: Lymphocyte 11 % (19-41); Metamyelocyte 1 % (0-1); Monocyte 2 % (0-10); Myelocyte 7 % (0-0); Neutrophil-Band 4 % (0-5); Neutrophil-Segmented 75 % (47-70); Platelet Estimate MOD DEC (ADEQ); Total Cells Counted 100 (MANUAL DIFF)
[2021-12-09 06:36] LABS: Absolute Lymphocyte Count 0.32 X10^3/uL (0.83-4.51); Absolute Neutrophil Count 2.3 X10^3/uL (2.0-7.7); Acanthocytes RARE; Anisocytosis RARE; Hypochromasia 1+; Lymphocyte # 0.32 X10^3/ul (0.83-4.51); Microcytosis RARE; Neutrophil # 2.27 X10^3/uL (2.7-7.7); Ovalocyte RARE
[2021-12-09 06:42] LABS: ALB/GLOB Ratio 0.7 RATIO (0.9-2.4); AST(SGOT) 19 U/L (15-37); Alanine Aminotransfer ALT/SGPT 14 U/L (13-56); Albumin, Serum 1.9 g/dL (3.2-5.0); Alkaline Phosphatase 62 U/L (45-117); Anion Gap 7 (5-15); BUN 39 mg/dL (7-18); BUN/Creat Ratio 30.7 RATIO (10-20); Calcium,Total 8.1 mg/dL (8.5-10.1); Chloride 114 mmol/L (98-107); Creatinine, Serum 1.27 mg/dL (0.55-1.02); EST Glomerular Filtration Rate 44 mL/min (>60); Est Glom Filt Rate - Afr Amer 53 mL/min (>60); Globulin 2.6 g/dL (2.2-4.2); Glucose 96 mg/dL (74-106); Potassium 3.6 mmol/L (3.5-5.1); Protein, Total 4.5 g/dL (6.4-8.2); Sodium Level 144 mmol/L (136-145)
[2021-12-09] MEDS: Levothyroxine 150 MCG Tablet PO (06:43)
[2021-12-09] MEDS: Dronabinol 2.5 MG Capsule PO ×2 (07:22→16:44)
[2021-12-09 08:01] LABS: Bedside Glucose 107 mg/dL (74-106)
[2021-12-09] MEDS: Iron Polysaccharide Complex 150 MG CAPSULE PO (08:21)
[2021-12-09] MEDS: RisperiDONE 0.5 MG Tablet PO (08:21)
[2021-12-09] MEDS: DULoxetine Hcl 60 MG Capsule PO (08:21)
[2021-12-09] MEDS: Hydroxychloroquine 200 MG Tablet PO ×2 (08:21→16:44)
--- NOTE | 2021-12-09 08:23 | PN.SURG_ITS ---
Subjective Subjective Patient's platelets are slightly improved at 78 from 72. Patient is much more awake and alert than previous. Objective Data Objective Data Vital Signs: Vital Signs Temp Pulse Resp BP Pulse Ox O2 Del Method 97.1 F L 96 18 125/69 H 93 Room Air 12/09/21 08:15 12/09/21 08:15 12/09/21 08:15 12/09/21 08:15 12/09/21 08:15 12/09/21 08:15 Oxygen Delivery Method Room Air Weight: 200 lb 9.93 oz Body Mass Index (BMI) 24.3 Intake & Output: Intake and Output for Last 24 Hours 12/07/21 12/08/21 12/09/21 23:59 23:59 23:59 Intake Total 4235.04 / 4295.04 2211.22 / 221. Output Total 325 / 425 650 / 980 660 / 660 Balance 3910.04 / 3870.04 1561.22 / 1231.22 -660 / -660 Medical Nutrition Assessment Dietitian: Malnutrition Criteria Met Start: 12/04/21 14:18 Freq: Status: Active Protocol: Document 12/08/21 11:48 RMA (Rec: 12/08/21 11:48 RMA [id number]) Nutrition Malnutrition Evidence of Malnutrition Exists Yes Malnutrition (severe): Chronic Evidenced By Suboptimal Energy Intake ( Severe),Weight Loss (Severe) Clinical Problem Chronic Disease or Condition Related Malnutrition Etiology severe, chronic malnutrition r /t inadequate energy intake d/ t depression Signs/Symptoms as evidenced by unintentional wt loss of 18.7kg/20% x 2 months; estimated PO intake meeting <50% of estimated energy needs x 2 weeks 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 2.) Concerns for refeeding- recommend close monitoring of electrolytes. 3.) When PEG placed tentatively scheduled for Monday 12/11: Recommend Jevity 1.5 boluses- pt will not be appropriate for continuous feeds given mental status, concerns pt will pull at tubing. Per physician documentation, pt will have abd binder to keep PEG in place. Would start w/ 100mL bolus Jevity 1.5 5x/day with 40mL H2O flush before and after each bolus to provide 750 calories, 32 g protein, and 780mL total fluid/day. As pt tolerates, would increase boluses by 70mL to 170mL 5x/ day w/ 60mL H2O flush before and after each bolus. Goal rate would be 240mL Jevity 1.5 bolus 5x/day w/100mL H2O flush before and after each bolus to provide 1800 calories , 76 g protein, and 1912mL total fluid/day. Lab / Micro Data Result Diagrams: 12/09/21 05:19 12/09/21 05:19 Labs: Laboratory Results - last 24 hr 12/07/21 03:56: Diff Path Review Reviewed 12/07/21 07:55: Diff Path Review Reviewed 12/08/21 08:50: APTT 63.5 H 12/08/21 11:40: POC Glucose 92 12/08/21 17:01: POC Glucose 95 12/08/21 20:55: APTT 50.3 H 12/08/21 21:00: POC Glucose 101 12/09/21 05:19: WBC 2.9 L, RBC 2.99 L, Hgb 8.3 L, Hct 25.2 L, MCV 84.3, MCH 27.8, MCHC 32.9, RDW Std Deviation 52.7 H, RDW Coeff of Rita 17.1 H, Plt Count 78 L, MPV 10.8, Neut % (Auto) Not Reportable, Absolute Neuts (auto) 2.3, Absolute Lymphs (auto) 0.32 L, Total Counted 100, Neutrophils % (Manual) 75 H, Band Neutrophils % 4, Lymphocytes % (Manual) 11 L, Monocytes % (Manual) 2, Metamyelocytes % 1, Myelocytes % 7 H, Diff Path Review May foll, Platelet Estimate MOD DEC, Hypochromasia 1+, Anisocytosis RARE, Microcytosis RARE, Ovalocytes RARE, Acanthocytes (Spur) RARE 12/09/21 05:19: Sodium 144, Potassium 3.6, Chloride 114 H, Carbon Dioxide 23.0, Anion Gap 7, BUN 39 H, Creatinine 1.27 H, Estim Creat Clear Calc 43.30, Est GFR (MDRD) Af Amer 53 L, Est GFR (MDRD) Non-Af 44 L, BUN/Creatinine Ratio 30.7 H, Glucose 96, Calcium 8.1 L, Total Bilirubin 0.40, AST 19, ALT 14, Alkaline Phosphatase 62, Total Protein 4.5 L, Albumin 1.9 L, Globulin 2.6, Albumin/Globulin Ratio 0.7 L 12/09/21 06:23: POC Glucose 107 H Micro: Microbiology 12/07/21 16:55 Stool Stool Occult Blood (DONNELL) - Final Occult Blood Positive 12/03/21 14:35 Nasal Secretion SARS-CoV-2 Antigen (Rapid) - Final Rhythm Strip Rhythm Strip: Sinus Tach Rate: 108 Ectopy: None Physical Exam Const no apparent distress Constitutional Narrative: Patient much more awake and alert than previous. Resp normal respiratory effort Cardio regular rate GI GI Narrative: Soft, nondistended, nontender Assessment & Plan Assessment/Plan (1) Severe malnutrition: (2) Acute DVT (deep venous thrombosis): (3) Thrombocytopenia: PLAN: Plan Plan slightly improved to 78. We will continue to monitor. Patient also seems much more alert and awake question if she would really need a PEG tube if she is able to start eating. We will plan to reevaluate more on Saturday for possible PEG. Le Muller M.D. Pager: [phone] [facility] [address] [place] [address], [facility], [address] [place] [address] Office: [phone] Charges/Coding Visit Charges Inpatient E&M: 50102 Subs Hosp L2
[2021-12-09] MEDS: Petrolatum 33% Tube 1 APPLIC TOPICAL ×2 (08:27→21:03)
[2021-12-09 09:31] LABS: Partial Thromboplast Time 68.9 Seconds (24.1-36.2)
[2021-12-09 09:48] LABS: Heparin-Induced Plt Ab 0.064 OD (0.000-0.400)
[2021-12-09 11:55] LABS: Bedside Glucose 102 mg/dL (74-106)
--- NOTE | 2021-12-09 13:06 | CASEMGMT ---
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 Pt has POA, not able to bring in the document. Pt stated Sriram Whittaker Jr is pt's POA. ROMERO Wolfe
[2021-12-09 13:14] LABS: Partial Thromboplast Time 70.4 Seconds (24.1-36.2)
[2021-12-09] MEDS: Ensure Plus High Protein 120 ML LIQUID PO (13:27)
--- NOTE | 2021-12-09 14:52 | PN.HOSP_ITS ---
Subjective Subjective Follow-up for severe thrombocytopenia, failure to thrive, loss of appetite. Plan for proposed PEG tube on Saturday Objective Data Objective Data Vital Signs: Vital Signs Temp Pulse Resp BP Pulse Ox O2 Del Method 97.5 F L 85 16 102/76 93 Room Air 12/09/21 13:23 12/09/21 13:23 12/09/21 13:23 12/09/21 13:23 12/09/21 13:23 12/09/21 13:23 Oxygen Delivery Method Room Air Weight: 200 lb 9.93 oz Body Mass Index (BMI) 24.3 Intake & Output: Intake and Output for Last 24 Hours 12/07/21 12/08/21 12/09/21 23:59 23:59 23:59 Intake Total 4235.04 / 4295.04 2211.22 / 2217.47 117.51 / 117.51 Output Total 325 / 425 650 / 980 810 / 810 Balance 3910.04 / 3870.04 1561.22 / 1237.47 -692.49 / -692.49 Medical Nutrition Assessment Dietitian: Malnutrition Criteria Met Start: 12/04/21 14:18 Freq: Status: Active Protocol: Document 12/08/21 11:48 RMA (Rec: 12/08/21 11:48 RMA [id number]) Nutrition Malnutrition Evidence of Malnutrition Exists Yes Malnutrition (severe): Chronic Evidenced By Suboptimal Energy Intake ( Severe),Weight Loss (Severe) Clinical Problem Chronic Disease or Condition Related Malnutrition Etiology severe, chronic malnutrition r /t inadequate energy intake d/ t depression Signs/Symptoms as evidenced by unintentional wt loss of 18.7kg/20% x 2 months; estimated PO intake meeting <50% of estimated energy 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 2.) Concerns for refeeding- recommend close monitoring of electrolytes. 3.) When PEG placed tentatively scheduled for Monday 12/11: Recommend Jevity 1.5 boluses- pt will not be appropriate for continuous feeds given mental status, concerns pt will pull at tubing. Per physician documentation, pt will have abd binder to keep PEG in place. Would start w/ 100mL bolus Jevity 1.5 5x/day with 40mL H2O flush before and after each bolus to provide 750 calories, 32 g protein, and 780mL total fluid/day. As pt tolerates, would increase boluses by 70mL to 170mL 5x/ day w/ 60mL H2O flush before and after each bolus. Goal rate would be 240mL Jevity 1.5 bolus 5x/day w/100mL H2O flush before and after each bolus to provide 1800 calories , 76 g protein, and 1912mL total fluid/day. Lab / Micro Data Result Diagrams: 12/09/21 05:19 12/09/21 05:19 Labs: Laboratory Results - last 24 hr 12/07/21 03:56: Diff Path Review Reviewed 12/07/21 03:56: Heparin-induced Plt Ab 0.064 12/07/21 07:55: Diff Path Review Reviewed 12/08/21 17:01: POC Glucose 95 12/08/21 20:55: APTT 50.3 H 12/08/21 21:00: POC Glucose 101 12/09/21 05:19: WBC 2.9 L, RBC 2.99 L, Hgb 8.3 L, Hct 25.2 L, MCV 84.3, MCH 27.8, MCHC 32.9, RDW Std Deviation 52.7 H, RDW Coeff of Rita 17.1 H, Plt Count 78 L, MPV 10.8, Neut % (Auto) Not Reportable, Absolute Neuts (auto) 2.3, Absolute Lymphs (auto) 0.32 L, Total Counted 100, Neutrophils % (Manual) 75 H, Band Ne utrophils % 4, Lymphocytes % (Manual) 11 L, Monocytes % (Manual) 2, Metamye locytes % 1, Myelocytes % 7 H, Diff Path Review May foll, Platelet Estimate MOD DEC, Hypochromasia 1+, Anisocytosis RARE, Microcytosis RARE, Ovalocytes RARE, Acanthocytes (Spur) RARE 12/09/21 05:19: Sodium 144, Potassium 3.6, Chloride 114 H, Carbon Dioxide 23.0, Anion Gap 7, BUN 39 H, Creatinine 1.27 H, Estim Creat Clear Calc 43.30, Est GFR (MDRD) Af Amer 53 L, Est GFR (MDRD) Non-Af 44 L, BUN/Creatinine Ratio 30.7 H, Glucose 96, Calcium 8.1 L, Total Bilirubin 0.40, AST 19, ALT 14, Alkaline Phosphatase 62, Total Protein 4.5 L, Albumin 1.9 L, Globulin 2.6, Albumin/Globulin Ratio 0.7 L 12/09/21 06:23: POC Glucose 107 H 12/09/21 08:50: APTT 68.9 H 12/09/21 11:14: POC Glucose 102 12/09/21 12:32: APTT 70.4 H Micro: Microbiology 12/07/21 16:55 Stool Stool Occult Blood (DONNELL) - Final Occult Blood Positive 12/03/21 14:35 Nasal Secretion SARS-CoV-2 Antigen (Rapid) - Final Rhythm Strip Rhythm Strip: Sinus Tach Rate: 108 Ectopy: None Physical Exam Narrative General: Awake, alert, weak, loss of appetite HEENT: Atraumatic, PERRLA, EOMI, Normocephalic Oral: Oral mucosa moist. No Gingival or Mucosal Lesions/ Ulcerations Neck: Supple, No JVD, Negative Carotid Bruits Lungs: Air entry diminished in bilateral lung bases. No crepitation/rhonchi Cardiovascular: Regular rate, Regular Rhythm, Normal S1, Normal S2, No murmurs Abdomen: Bowel Sounds Present, Soft, Non Tender, Non-Distended : No renal angle tenderness. No suprapubic tenderness. Extremities: Bilateral nonpitting lower leg edema, Capillary Refill Less than 3 Seconds Skin: No rashes, No breakdown Musculoskeletal: ROM severely restricted. No active movement. Cannot lift her legs. Left leg about one half times right leg, left tender calf. ROM restricted at knee and hip joints. Neurological: Cranial nerves II-XII grossly intact, DTR 2+/4, muscle strength 3/5 at major joints of lower extremity Psych/Mental Status: Flat affect. Assessment & Plan Assessment/Plan (1) Acute kidney injury: (2) Toxic metabolic encephalopathy: (3) Severe malnutrition: (4) Thrombocytopenia: PLAN: Plan This 71-year-old female was admitted with altered mental status, delusion; was talking to her mother who long time ago. Patient behavior was not appropriate/derealization Toxic/metabolic encephalopathy, may be related to polypharmacy. Patient on meclizine. Acute encephalopathy has resolved. B12 low at 222, on B12 oral replacement -TSH within normal limits JACOB secondary to severe dehydration, prerenal/obstructive: -Serum creatinine is 1.2-->0.3 above baseline on presentation -Serum is now able lysed and trending back down and now 1.66 -Continue IV fluids with LR 75 cc/h until patient is able to take p.o. adequately to maintain appropriate hydration -Renal ultrasound showed a possible mass posterior to the bladder versus hematoma--> Blanc placed and significant sediment and what looks like to be blood--> CT done with no comment with regards to the above--> Urology has seen the patient and will follow as an outpatient with no urgent needs for intervention at this time -FeNa is 6.9% on 12/06/2021 most consistent with obstructive -Blanc placed and serum creatinine is trending down at this point -Avoid nephrotoxins. Serum creatinine 1.39, BUN 42. -Would leave Blanc in at discharge 12/09: Creatinine getting better. 1.27. Thrombocytopenia: Certain differential diagnosis are HIT. Pretest probability, of 4 T score is 4 points intermediate probability 14%. Peripheral smear pending. MPV normal. -Heparin-induced platelet antibody pending -Heparin drip discontinued -Start bivalirudin drip -We will convert to oral agents once PEG tube is placed but need IV with rapid conversion until that point time -Hematology/oncology consult pending--> Case was discussed with Dr. Franco -PEG tube currently on hold due to severe thrombocytopenia 12/09: Platelet count still low, no significant difference. Normocytic normochromic acute anemia with history of anemia of chronic disease/inflammatory anemia -Hemoglobin low 7.2 g, steadily getting low from baseline 11 to 12 g. Stool for occult blood positive. Transfuse hemoglobin less than 7 g. Abnormal EKG -Current EKG with new T wave inversions in the inferior lateral leads -Patient with no active chest pain and symptoms are fairly nonspecific -Cardiac enzymes are normal x3 -Echocardiogram was unimpressive showing an EF of 55% with stage I diastolic dysfunction and a pulmonary artery systolic pressure of 27 mmHg Debility -Patient with 2 recent hip surgeries for replacement then revision secondary to recurrent dislocations -PT/OT following-participation is quite limited -May need placement at discharge Left lower extremity DVT-acute -Heparin drip initiated yesterday with CT of the abdomen pelvis pending -Await urology input and if no procedures required will convert to Eliquis as noted below -Plan to convert to Eliquis 10 mg p.o. twice daily for 7 days then 5 mg p.o. when longer-term anticoagulation is appropriate 2 mm right ureteral calculus with mild right hydronephrosis -Continue Flomax -Continue IV fluids -Urology has evaluated the patient and no need for any intervention Dry skin -Eucerin cream twice daily to lower extremities History of rheumatoid arthritis -Continue home hydroxychloroquine -Hold leflunomide until platelet count improvement -Continue home as needed Ultram Hypertension -Hold metoprolol with intermittent low blood pressures -Continue to monitor Severe depression -Continue duloxetine -Risperdal added -Anticipate this is significantly playing into her above presentation Severe malnutrition -Supplements given -Dietitian following -Continue Marinol -CT was unremarkable for any abnormalities that would suggest reason for decreased p.o. intake -If p.o. intake does not improve may need NG tube for supplementation and this was discussed with patient -Continue to encourage p.o.--> seems that this is predominantly behavioral -Patient continues to refuse to eat--> discussed with and he is agreeable to PEG tube--> plan was for PEG tube today however platelets are lower than they have been and will currently be on hold until improvement DVT prophylaxis -Bivalirudin drip -SCDs CODE STATUS -Full code as per discussion with on admission Total time of the visit including total time spent in counseling or coordination of care, (more than 50% of the total time, spent in obtaining medical information from nurses and other ancillary care providers,explaining to the patient about labs, imaging, diagnosis and management of active complex medical conditions), 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
[2021-12-09 15:05] LABS: Partial Thromboplast Time 58.3 Seconds (24.1-36.2)
--- NOTE | 2021-12-09 15:43 | NURSING ---
Pt's gold wedding band given to pt's to take home.
[2021-12-09] MEDS: Tamsulosin HCl 0.4 MG Capsule PO (16:44)
[2021-12-09 17:10] LABS: Bedside Glucose 115 mg/dL (74-106)
[2021-12-09 17:28] LABS: Partial Thromboplast Time 62.7 Seconds (24.1-36.2)
[2021-12-09] MEDS: Lactated Ringers 1,000 ML 75 ML IV (18:27)
[2021-12-09 21:25] LABS: Bedside Glucose 92 mg/dL (74-106)
[2021-12-10] VITALS (11 sets, daily range): BP systolic 121–129; BP diastolic 78–88; PULSE 79–88; RESP 14–18; TEMP 35.9–36.4; O2SAT 96–100
[2021-12-10] MEDS: Levothyroxine 150 MCG Tablet PO (06:21)
[2021-12-10] MEDS: Lactated Ringers 1,000 ML 75 ML IV ×2 (06:21→18:40)
[2021-12-10] MEDS: Dronabinol 2.5 MG Capsule PO ×2 (06:21→17:08)
[2021-12-10 06:45] LABS: Bedside Glucose 78 mg/dL (74-106)
[2021-12-10 07:07] LABS: Hemoglobin 7.5 g/dL (12.0-15.0); Mean Corp Hgb Conc 32.6 g/dL (32-36); Mean Corpuscular Hgb 27.4 pg (27.0-32.0); Mean Corpuscular Volume 83.9 fL (81-99); Mean Platelet Vol. 10.2 fl (6.2-12.0); POSITIVE COUNT YES; POSITIVE DIFFERENTIAL YES; POSITIVE MORPHOLOGY YES; Platelet Count 71 K/mm3 (150-450); Red Blood Count 2.74 M/mm3 (4.2-5.4); White Blood Count 2.8 K/mm3 (4.4-11.0)
[2021-12-10 07:12] LABS: Differential Indicated MANUAL DIFF
[2021-12-10 07:29] LABS: ALB/GLOB Ratio 0.7 RATIO (0.9-2.4); AST(SGOT) 20 U/L (15-37); Alanine Aminotransfer ALT/SGPT 14 U/L (13-56); Albumin, Serum 1.8 g/dL (3.2-5.0); Alkaline Phosphatase 59 U/L (45-117); Anion Gap 6 (5-15); BUN 34 mg/dL (7-18); BUN/Creat Ratio 28.6 RATIO (10-20); Calcium,Total 8.2 mg/dL (8.5-10.1); Chloride 116 mmol/L (98-107); Creatinine, Serum 1.19 mg/dL (0.55-1.02); EST Glomerular Filtration Rate 47 mL/min (>60); Est Glom Filt Rate - Afr Amer 57 mL/min (>60); Estimated Creatinine Clearance 46.21 ml/min; Globulin 2.5 g/dL (2.2-4.2); Glucose 88 mg/dL (74-106); Potassium 3.6 mmol/L (3.5-5.1); Protein, Total 4.3 g/dL (6.4-8.2); Sodium Level 146 mmol/L (136-145)
[2021-12-10 07:52] LABS: Lymphocyte 15 % (19-41); Monocyte 4 % (0-10); Myelocyte 6 % (0-0); Neutrophil-Band 3 % (0-5); Neutrophil-Segmented 72 % (47-70); Platelet Estimate MOD DEC (ADEQ); Red Cell Morphology NORM C+C NORMAL (NORM C&C); Total Cells Counted 100 (MANUAL DIFF)
[2021-12-10 07:53] LABS: Metamyelocyte 3 % (0-1); Promyelocyte 6 % (0-0)
[2021-12-10 08:04] LABS: Partial Thromboplast Time 64.2 Seconds (24.1-36.2)
--- NOTE | 2021-12-10 08:17 | NURSING ---
Pharmacy was called about aptt results of 64.2. Per pharmacy this is in range, keep angiomax at same rate and next aptt at 1900.
--- NOTE | 2021-12-10 09:07 | PN.SURG_ITS ---
Subjective Subjective Patient still little more responsive than prior however about the same from yesterday. Patient's platelets are 71 from 78. Objective Data Objective Data Vital Signs: Vital Signs Temp Pulse Resp BP Pulse Ox O2 Del Method 96.7 F L 88 17 121/78 H 100 Room Air 12/10/21 04:00 12/10/21 07:00 12/10/21 04:00 12/10/21 04:00 12/10/21 07:33 12/10/21 07:33 Oxygen Delivery Method Room Air Weight: 199 lb 8.293 oz Body Mass Index (BMI) 24.3 Intake & Output: Intake and Output for Last 24 Hours 12/08/21 12/09/21 12/10/21 23:59 23:59 23:59 Intake Total 2211.22 / 2217.47 1036.26 / 1036.26 1031.27 / 1031.27 Output Total 650 / 980 885 / 985 300 / 300 Balance 1561.22 / 1237.47 151.26 / 51.26 731.27 / 731.27 Medical Nutrition Assessment Dietitian: Malnutrition Criteria Met Start: 12/04/21 14:18 Freq: Status: Active Protocol: Document 12/08/21 11:48 RMA (Rec: 12/08/21 11:48 RMA [id number]) Nutrition Malnutrition Evidence of Malnutrition Exists Yes Malnutrition (severe): Chronic Evidenced By Suboptimal Energy Intake ( Severe),Weight Loss (Severe) Clinical Problem Chronic Disease or Condition Related Malnutrition Etiology severe, chronic malnutrition r /t inadequate energy intake d/ t depression Signs/Symptoms as evidenced by unintentional wt loss of 18.7kg/20% x 2 months; estimated PO intake meeting <50% of estimated energy needs 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 2.) Concerns for refeeding- recommend close monitoring of electrolytes. 3.) When PEG placed tentatively scheduled for Monday 12/11: Recommend Jevity 1.5 boluses- pt will not be appropriate for continuous feeds given mental status, concerns pt will pull at tubing. Per physician documentation, pt will have abd binder to keep PEG in place. Would start w/ 100mL bolus Jevity 1.5 5x/day with 40mL H2O flush before and after each bolus to provide 750 calories, 32 g protein, and 780mL total fluid/day. As pt tolerates, would increase boluses by 70mL to 170mL 5x/ day w/ 60mL H2O flush before and after each bolus. Goal rate would be 240mL Jevity 1.5 bolus 5x/day w/100mL H2O flush before and after each bolus to provide 1800 calories , 76 g protein, and 1912mL total fluid/day. Lab / Micro Data Result Diagrams: 12/10/21 06:47 12/10/21 06:47 Labs: Laboratory Results - last 24 hr 12/07/21 03:56: Heparin-induced Plt Ab 0.064 12/09/21 08:50: APTT 68.9 H 12/09/21 11:14: POC Glucose 102 12/09/21 12:32: APTT 70.4 H 12/09/21 14:25: APTT 58.3 H 12/09/21 16:01: POC Glucose 115 H 12/09/21 17:05: APTT 62.7 H 12/09/21 21:01: POC Glucose 92 12/10/21 06:26: POC Glucose 78 12/10/21 06:47: WBC 2.8 L, RBC 2.74 L, Hgb 7.5 L, Hct 23.0 L, MCV 83.9, MCH 27.4, MCHC 32.6, RDW Std Deviation 52.0 H, RDW Coeff of Rita 17.0 H, Plt Count 71 L, MPV 10.2, Neut % (Auto) Not Reportable, Absolute Neuts (auto) 2.0, Absolute Lymphs (auto) 0.40 L, Total Counted 100, Neutrophils % (Manual) 72 H, Band Neutrophils % 3, Lymphocytes % (Manual) 15 L, Monocytes % (Manual) 4, Metamyel ocytes % 3 H, Myelocytes % 6 H, Promyelocytes % 6 H, Diff Path Review May , Platelet Estimate MOD DEC, RBC Morphology NORM C+C 12/10/21 06:47: Sodium 146 H, Potassium 3.6, Chloride 116 H, Carbon Dioxide 24.0, Anion Gap 6, BUN 34 H, Creatinine 1.19 H, Estim Creat Clear Calc 46.21, Est GFR (MDRD) Af Amer 57 L, Est GFR (MDRD) Non-Af 47 L, BUN/Creatinine Ratio 28.6 H, Glucose 88, Calcium 8.2 L, Total Bilirubin 0.50, AST 20, ALT 14, Alkaline Phosphatase 59, Total Protein 4.3 L, Albumin 1.8 L, Globulin 2.5, Albumin/Globulin Ratio 0.7 L 12/10/21 06:47: APTT 64.2 H Micro: Microbiology 12/07/21 16:55 Stool Stool Occult Blood (DONNELL) - Final Occult Blood Positive 12/03/21 14:35 Nasal Secretion SARS-CoV-2 Antigen (Rapid) - Final Rhythm Strip Rhythm Strip: Sinus Tach Rate: 108 Ectopy: None Physical Exam Const Constitutional Narrative: A & O x2 Resp normal respiratory effort Cardio regular rate GI soft to palpation and non-tender Assessment & Plan Assessment/Plan (1) Severe malnutrition: (2) Acute DVT (deep venous thrombosis): (3) Thrombocytopenia: PLAN: Plan Patient's platelets are still low at 71 with 78 yesterday. We will plan to give platelets prior to EGD as patient will still need to be on the argatroban drip after the procedure. Le Muller M.D. Pager: [phone] [facility] [address] [place] [address], [facility], [address] [place] [id number] Office: [phone]
[2021-12-10] MEDS: RisperiDONE 0.5 MG Tablet PO ×2 (10:23→21:15)
[2021-12-10] MEDS: Iron Polysaccharide Complex 150 MG CAPSULE PO (10:23)
[2021-12-10] MEDS: DULoxetine Hcl 60 MG Capsule PO (10:24)
[2021-12-10] MEDS: Hydroxychloroquine 200 MG Tablet PO ×2 (10:24→17:08)
[2021-12-10] MEDS: Petrolatum 33% Tube 1 APPLIC TOPICAL ×2 (10:24→21:16)
[2021-12-10 12:06] LABS: Bedside Glucose 88 mg/dL (74-106)
[2021-12-10] MEDS: Ensure Plus High Protein 120 ML LIQUID PO (14:54)
--- NOTE | 2021-12-10 16:04 | PCM.PN.HOSP ---
Subjective Subjective Follow-up for severe thrombocytopenia failure to thrive. Patient is lethargic, eyes have closed. Low pitched voice. Objective Data Objective Data Vital Signs: Vital Signs Temp Pulse Resp BP Pulse Ox O2 Del Method 97.5 F L 87 16 128/86 H 99 Room Air 12/10/21 10:15 12/10/21 14:58 12/10/21 10:15 12/10/21 10:15 12/10/21 10:15 12/10/21 10:15 Oxygen Delivery Method Room Air Weight: 199 lb 8.293 oz Body Mass Index (BMI) 24.3 Intake & Output: Intake and Output for Last 24 Hours 12/08/21 12/09/21 12/10/21 23:59 23:59 23:59 Intake Total 2211.22 / 2217.47 1036.26 / 1036.26 1131.27 / 1131.27 Output Total 650 / 980 885 / 985 500 / 500 Balance 1561.22 / 1237.47 151.26 / 51.26 631.27 / 631.27 Medical Nutrition Assessment Dietitian: Malnutrition Criteria Met Start: 12/04/21 14:18 Freq: Status: Active Protocol: Document 12/08/21 11:48 RMA (Rec: 12/08/21 11:48 RMA [id number]) Nutrition Malnutrition Evidence of Malnutrition Exists Yes Malnutrition (severe): Chronic Evidenced By Suboptimal Energy Intake ( Severe),Weight Loss (Severe) Clinical Problem Chronic Disease or Condition Related Malnutrition Etiology severe, chronic malnutrition r /t inadequate energy intake d/ t depression Signs/Symptoms as evidenced by unintentional wt loss of 18.7kg/20% x 2 months; estimated PO intake meeting <50% of 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 2.) Concerns for refeeding- recommend close monitoring of electrolytes. 3.) When PEG placed tentatively scheduled for Monday 12/11: Recommend Jevity 1.5 boluses- pt will not be appropriate for continuous feeds given mental status, concerns pt will pull at tubing. Per physician documentation, pt will have abd binder to keep PEG in place. Would start w/ 100mL bolus Jevity 1.5 5x/day with 40mL H2O flush before and after each bolus to provide 750 calories, 32 g protein, and 780mL total fluid/day. As pt tolerates, would increase boluses by 70mL to 170mL 5x/ day w/ 60mL H2O flush before and after each bolus. Goal rate would be 240mL Jevity 1.5 bolus 5x/day w/100mL H2O flush before and after each bolus to provide 1800 calories , 76 g protein, and 1912mL total fluid/day. Lab / Micro Data Result Diagrams: 12/10/21 06:47 12/10/21 06:47 Labs: Laboratory Results - last 24 hr 12/09/21 16:01: POC Glucose 115 H 12/09/21 17:05: APTT 62.7 H 12/09/21 21:01: POC Glucose 92 12/10/21 06:26: POC Glucose 78 12/10/21 06:47: WBC 2.8 L, RBC 2.74 L, Hgb 7.5 L, Hct 23.0 L, MCV 83.9, MCH 27.4, MCHC 32.6, RDW Std Deviation 52.0 H, RDW Coeff of Rita 17.0 H, Plt Count 71 L, MPV 10.2, Neut % (Auto) Not Reportable, Absolute Neuts (auto) 2.0, Absolute Lymphs (auto) 0.40 L, Total Counted 100, Neutrophils % (Manual) 72 H, Band Neutrophils % 3, Lymphocytes % (Manual) 15 L, Monocytes % (Manual) 4, Metamyelocytes % 3 H, Myelocytes % 6 H, Promyelocytes % 6 H, Diff Path Review June foll, Platelet Estimate MOD DEC, RBC Morphology NORM C+C 12/10/21 06:47: Sodium 146 H, Potassium 3.6, Chloride 116 H, Carbon Dioxide 24.0, Anion Gap 6, BUN 34 H, Creatinine 1.19 H, Estim Creat Clear Calc 46.21, Est GFR (MDRD) Af Amer 57 L, Est GFR (MDRD) Non-Af 47 L, BUN/Creatinine Ratio 28.6 H, Glucose 88, Calcium 8.2 L, Total Bilirubin 0.50, AST 20, ALT 14, Alkaline Phosphatase 59, Total Protein 4.3 L, Albumin 1.8 L, Globulin 2.5, Albumin/Globulin Ratio 0.7 L 12/10/21 06:47: APTT 64.2 H 12/10/21 09:56: Blood Type A POSITIVE, Antibody Screen NEGATIVE 12/10/21 11:45: POC Glucose 88 Micro: Microbiology 12/07/21 16:55 Stool Stool Occult Blood (DONNELL) - Final Occult Blood Positive 12/03/21 14:35 Nasal Secretion SARS-CoV-2 Antigen (Rapid) - Final Rhythm Strip Rhythm Strip: Sinus Tach Rate: 108 Ectopy: None Physical Exam Narrative General: Awake, lethargy weak, loss of appetite HEENT: Atraumatic, PERRLA, EOMI, Normocephalic Oral: Oral mucosa moist. No Gingival or Mucosal Lesions/ Ulcerations Neck: Supple, No JVD, Negative Carotid Bruits Lungs: Air entry diminished in bilateral lung bases. No crepitation/rhonchi Cardiovascular: Regular rate, Regular Rhythm, Normal S1, Normal S2, systolic murmur LLSB Abdomen: Bowel Sounds Present, Soft, Non Tender, Non-Distended : Blanc catheter dark urine. No renal angle tenderness. No suprapubic tenderness. Extremities: Bilateral nonpitting lower leg edema, Capillary Refill Less than 3 Seconds Skin: No rashes, No breakdown Musculoskeletal: ROM severely restricted. No active movement. Cannot lift her legs. Left leg about one half times right leg, left tender calf. ROM restricted at knee and hip joints. Neurological: Cranial nerves II-XII grossly intact, DTR 2+/4, muscle strength 3/5 at major joints of lower extremity Psych/Mental Status: Flat affect. Assessment & Plan Assessment/Plan (1) Acute kidney injury: (2) Toxic metabolic encephalopathy: (3) Severe malnutrition: (4) Thrombocytopenia: PLAN: Plan This 71-year-old female was admitted with altered mental status, delusion; was talking to her mother who long time ago. Patient behavior was not appropriate/derealization Toxic/metabolic encephalopathy, may be related to polypharmacy. Patient on meclizine. Acute encephalopathy has resolved. B12 low at 222, on B12 oral replacement -TSH within normal limits JACOB secondary to severe dehydration, prerenal/obstructive: -Serum creatinine is 1.2-->0.3 above baseline on presentation -Serum is now able lysed and trending back down and now 1.66 -Continue IV fluids with LR 75 cc/h until patient is able to take p.o. adequately to maintain appropriate hydration -Renal ultrasound showed a possible mass posterior to the bladder versus hematoma--> Blanc placed and significant sediment and what looks like to be blood--> CT done with no comment with regards to the above--> Urology has seen the patient and will follow as an outpatient with no urgent needs for intervention at this time -FeNa is 6.9% on 12/06/2021 most consistent with obstructive -Blanc placed and serum creatinine is trending down at this point -Avoid nephrotoxins. Serum creatinine 1.39, BUN 42. -Would leave Blanc in at discharge 12/09: Creatinine getting better. 1.27. 12/10, creatinine 1.19. Thrombocytopenia: Certain differential diagnosis are HIT. Pretest probability, of 4 T score is 4 points intermediate probability 14%. Peripheral smear pending. MPV normal. -Heparin-induced platelet antibody pending -Heparin drip discontinued -Start bivalirudin drip -We will convert to oral agents once PEG tube is placed but need IV with rapid conversion until that point time -Hematology/oncology consult pending--> Case was discussed with Dr. Franco -PEG tube currently on hold due to severe thrombocytopenia 12/09: Platelet count still low, no significant difference. 12/10: Platelet is still low 71,000. Discussed with the surgeon. I agreed for platelet transfusion an hour before PEG tube procedure. Patient on bivalirudin drip Normocytic normochromic acute anemia with history of anemia of chronic disease/inflammatory anemia -Hemoglobin low 7.2 g, steadily getting low from baseline 11 to 12 g. Stool for occult blood positive. Transfuse hemoglobin less than 7 g. 12/10: Hemoglobin 7.5. WBC count 2.8 thousand. Abnormal EKG -Current EKG with new T wave inversions in the inferior lateral leads -Patient with no active chest pain and symptoms are fairly nonspecific -Cardiac enzymes are normal x3 -Echocardiogram was unimpressive showing an EF of 55% with stage I diastolic dysfunction and a pulmonary artery systolic pressure of 27 mmHg Debility -Patient with 2 recent hip surgeries for replacement then revision secondary to recurrent dislocations -PT/OT following-participation is quite limited -May need placement at discharge Left lower extremity DVT-acute -Heparin drip initiated yesterday with CT of the abdomen pelvis pending -Await urology input and if no procedures required will convert to Eliquis as noted below -Plan to convert to Eliquis 10 mg p.o. twice daily for 7 days then 5 mg p.o. when longer-term anticoagulation is appropriate 2 mm right ureteral calculus with mild right hydronephrosis -Continue Flomax -Continue IV fluids -Urology has evaluated the patient and no need for any intervention Dry skin -Eucerin cream twice daily to lower extremities History of rheumatoid arthritis -Continue home hydroxychloroquine -Hold leflunomide until platelet count improvement -Continue home as needed Ultram Hypertension -Hold metoprolol with intermittent low blood pressures -Continue to monitor Severe depression -Continue duloxetine -Risperdal added -Anticipate this is significantly playing into her above presentation Severe malnutrition -Supplements given -Dietitian following -Continue Marinol -CT was unremarkable for any abnormalities that would suggest reason for decreased p.o. intake -If p.o. intake does not improve may need NG tube for supplementation and this was discussed with patient -Continue to encourage p.o.--> seems that this is predominantly behavioral -Patient continues to refuse to eat--> discussed with and he is agreeable to PEG tube--> plan was for PEG tube today however platelets are lower than they have been and will currently be on hold until improvement DVT prophylaxis -Bivalirudin drip -SCDs CODE STATUS -Full code as per discussion with on admission Total time of the visit including total time spent in counseling or coordination of care, (more than 50% of the total time, spent in obtaining medical information from nurses and other ancillary care providers,explaining to the patient about labs, imaging, diagnosis and management of active complex medical conditions), discussion with consultants surgeon and outsole molder, review of labs and imaging is 25 minutes Microbiology Past 72 Hours 12/07/21 16:55 Stool Stool Occult Blood (DONNELL) - Final Occult Blood Positive Laboratory Results 12/09/21 16:01: POC Glucose 115 H 12/09/21 17:05: APTT 62.7 H 12/09/21 21:01: POC Glucose 92 12/10/21 06:26: POC Glucose 78 12/10/21 06:47: WBC 2.8 L, RBC 2.74 L, Hgb 7.5 L, Hct 23.0 L, MCV 83.9, MCH 27.4, MCHC 32.6, RDW Std Deviation 52.0 H, RDW Coeff of Rita 17.0 H, Plt Count 71 L, MPV 10.2, Neut % (Auto) Not Reportable, Absolute Neuts (auto) 2.0, Absolute Lymphs (auto) 0.40 L, Total Counted 100, Neutrophils % (Manual) 72 H, Band Neutrophils % 3, Lymphocytes % (Manual) 15 L, Monocytes % (Manual) 4, Metamyelocytes % 3 H, Myelocytes % 6 H, Promyelocytes % 6 H, Diff Path Review June, Platelet Estimate MOD DEC, RBC Morphology NORM C+C 12/10/21 06:47: Sodium 146 H, Potassium 3.6, Chloride 116 H, Carbon Dioxide 24.0, Anion Gap 6, BUN 34 H, Creatinine 1.19 H, Estim Creat Clear Calc 46.21, Est GFR (MDRD) Af Amer 57 L, Est GFR (MDRD) Non-Af 47 L, BUN/Creatinine Ratio 28.6 H, Glucose 88, Calcium 8.2 L, Total Bilirubin 0.50, AST 20, ALT 14, Alkaline Phosphatase 59, Total Protein 4.3 L, Albumin 1.8 L, Globulin 2.5, Albumin/Globulin Ratio 0.7 L 12/10/21 06:47: APTT 64.2 H 12/10/21 09:56: Blood Type A POSITIVE, Antibody Screen NEGATIVE 12/10/21 11:45: POC Glucose 88 Charges/Coding Visit Charges Inpatient E&M: 67806 Subs Hosp L2
[2021-12-10] MEDS: Tamsulosin HCl 0.4 MG Capsule PO (17:08)
[2021-12-10 17:25] LABS: Bedside Glucose 84 mg/dL (74-106)
[2021-12-10 19:35] LABS: Partial Thromboplast Time 59.7 Seconds (24.1-36.2)
--- NOTE | 2021-12-10 19:45 | NURSING ---
Spoke with Mauro in pharmacy at this time. Ptt is 59.7. No changes to rate and next ptt in 12 hours. Next ptt ordered for 0700.
[2021-12-10 22:30] LABS: Bedside Glucose 82 mg/dL (74-106)
[2021-12-11] VITALS (21 sets, daily range): BP systolic 80–134; BP diastolic 54–91; PULSE 76–86; RESP 12–18; TEMP 35.3–36.6; O2SAT 95–100; BMI 28.6; BMI 29.0
--- NOTE | 2021-12-11 05:55 | EKG12_ITS ---
Test Reason : AM EKG Blood Pressure : / mmHG Vent. Rate : 086 BPM Atrial Rate : 086 BPM P-R Int : 138 ms QRS Dur : 076 ms QT Int : 430 ms P-R-T Axes : 040 -41 -46 degrees QTc Int : 514 ms Sinus rhythm with Premature supraventricular complexes Left axis deviation Low voltage QRS Nonspecific T wave abnormality Abnormal ECG When compared with ECG of 07-DEC-2021 05:21, Nonspecific T wave abnormality has replaced inverted T waves in Anterior leads Confirmed by MATTHEW VARGAS, AMAIRANI ([id number]), legal editor DEMI FREEMAN ([id number]) on 12/11/2021 12:49:29 PM Referred By: RICHARD Confirmed By:AMAIRANI CASTRO MD
[2021-12-11] MEDS: Lactated Ringers 1,000 ML 75 ML IV (06:40)
[2021-12-11 07:00] LABS: Bedside Glucose 77 mg/dL (74-106)
[2021-12-11 07:01] LABS: Hematocrit 23.6 % (37-47); Hemoglobin 7.8 g/dL (12.0-15.0); Mean Corp Hgb Conc 33.1 g/dL (32-36); Mean Corpuscular Hgb 27.7 pg (27.0-32.0); Mean Corpuscular Volume 83.7 fL (81-99); Mean Platelet Vol. 10.7 fl (6.2-12.0); POSITIVE COUNT YES; POSITIVE DIFFERENTIAL YES; POSITIVE MORPHOLOGY YES; Platelet Count 70 K/mm3 (150-450); RBC Distribution Width CV 16.8 % (11.6-14.6); RBC Distribution Width SD 51.8 fl (35.1-43.9); Red Blood Count 2.82 M/mm3 (4.2-5.4); White Blood Count 3.3 K/mm3 (4.4-11.0)
[2021-12-11 07:03] LABS: Anion Gap 6 (5-15); BUN 30 mg/dL (7-18); BUN/Creat Ratio 27.5 RATIO (10-20); Calcium,Total 8.4 mg/dL (8.5-10.1); Chloride 116 mmol/L (98-107); Creatinine, Serum 1.09 mg/dL (0.55-1.02); EST Glomerular Filtration Rate 52 mL/min (>60); Est Glom Filt Rate - Afr Amer 63 mL/min (>60); Estimated Creatinine Clearance 50.45 ml/min; Glucose 83 mg/dL (74-106); Partial Thromboplast Time 64.2 Seconds (24.1-36.2); Potassium 3.2 mmol/L (3.5-5.1); Sodium Level 146 mmol/L (136-145)
[2021-12-11 07:05] LABS: Differential Indicated MANUAL DIFF
--- NOTE | 2021-12-11 07:27 | NURSING ---
Pts ptt is 64.2, per Travis in pharmacy no changes to gtt to be made. And order ptt 12 hours from last result.
[2021-12-11 08:06] LABS: Absolute Neutrophil Count 2.5 X10^3/uL (2.0-7.7); Eosinophil 1 % (0-5); Lymphocyte 13 % (19-41); Metamyelocyte 3 % (0-1); Monocyte 5 % (0-10); Neutrophil-Segmented 76 % (47-70); Platelet Estimate MOD DEC (ADEQ); Promyelocyte 2 % (0-0); Red Cell Morphology NORM C+C NORMAL (NORM C&C); Total Cells Counted 100 (MANUAL DIFF)
[2021-12-11 08:07] LABS: Absolute Lymphocyte Count 0.43 X10^3/uL (0.83-4.51); Lymphocyte # 0.43 X10^3/ul (0.83-4.51)
--- NOTE | 2021-12-11 08:26 | PN.HOSP_ITS ---
Subjective Subjective Follow-up for failure to thrive, pancytopenia but mostly severe thrombocytopenia. Patient had PEG tube placed after platelet transfusion. Objective Data Objective Data Vital Signs: Vital Signs Temp Pulse Resp BP Pulse Ox O2 Del Method 97.2 F L 78 16 122/90 H 95 Room Air 12/11/21 03:15 12/11/21 07:00 12/11/21 03:15 12/11/21 03:15 12/11/21 07:45 12/11/21 07:45 Oxygen Delivery Method Room Air Weight: 202 lb 13.204 oz Body Mass Index (BMI) 28.6 Intake & Output: Intake and Output for Last 24 Hours 12/09/21 12/10/21 12/11/21 23:59 23:59 23:59 Intake Total 1036.26 / 1036.26 2117.58 / 2167.58 962.91 / 962.91 Output Total 885 / 985 650 / 775 375 / 375 Balance 151.26 / 51.26 1467.58 / 1392.58 587.91 / 587.91 Medical Nutrition Assessment Dietitian: Malnutrition Criteria Met Start: 12/04/21 14:18 Freq: Status: Active Protocol: Document 12/08/21 11:48 RMA (Rec: 12/08/21 11:48 RMA [id number]) Nutrition Malnutrition Evidence of Malnutrition Exists Yes Malnutrition (severe): Chronic Evidenced By Suboptimal Energy Intake ( Severe),Weight Loss (Severe) Clinical Problem Chronic Disease or Condition Related Malnutrition Etiology severe, chronic malnutrition r /t inadequate energy intake d/ t depression Signs/Symptoms as evidenced by unintentional wt loss of 18.7kg/20% x 2 months; estimated PO intake meeting <50% of estimated energy needs x 2 weeks [employer]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 2.) Concerns for refeeding- recommend close monitoring of electrolytes. 3.) When PEG placed tentatively scheduled for Monday 12/11: Recommend Jevity 1.5 boluses- pt will not be appropriate for continuous feeds given mental status, concerns pt will pull at tubing. Per physician documentation, pt will have abd binder to keep PEG in place. Would start w/ 100mL bolus Jevity 1.5 5x/day with 40mL H2O flush before and after each bolus to provide 750 calories, 32 g protein, and 780mL total fluid/day. As pt tolerates, would increase boluses by 70mL to 170mL 5x/ day w/ 60mL H2O flush before and after each bolus. Goal rate would be 240mL Jevity 1.5 bolus 5x/day w/100mL H2O flush before and after each bolus to provide 1800 calories , 76 g protein, and 1912mL total fluid/day. Lab / Micro Data Result Diagrams: 12/11/21 06:38 12/11/21 06:38 Labs: Laboratory Results - last 24 hr 12/10/21 09:56: Blood Type A POSITIVE, Antibody Screen NEGATIVE 12/10/21 11:45: POC Glucose 88 12/10/21 17:01: POC Glucose 84 12/10/21 19:03: APTT 59.7 H 12/10/21 21:13: POC Glucose 82 12/11/21 06:38: APTT 64.2 H 12/11/21 06:38: WBC 3.3 L, RBC 2.82 L, Hgb 7.8 L, Hct 23.6 L, MCV 83.7, MCH 27.7, MCHC 33.1, RDW Std Deviation 51.8 H, RDW Coeff of Rita 16.8 H, Plt Count 70 L, MPV 10.7, Neut % (Auto) Not Reportable, Absolute Neuts (auto) 2.5, Absolute Lymphs (auto) 0.43 L, Total Counted 100, Neutrophils % (Manual) 76 H, Lymph ocytes % (Manual) 13 L, Monocytes % (Manual) 5, Eosinophils % (Manual) 1, M etamyelocytes % 3 H, Promyelocytes % 2 H, Diff Path Review May foll, Platelet Estimate MOD DEC, RBC Morphology NORM C+C 12/11/21 06:38: Sodium 146 H, Potassium 3.2 L, Chloride 116 H, Carbon Dioxide 24.0, Anion Gap 6, BUN 30 H, Creatinine 1.09 H, Estim Creat Clear Calc 50.45, Est GFR (MDRD) Af Amer 63, Est GFR (MDRD) Non-Af 52 L, BUN/Creatinine Ratio 27.5 H, Glucose 83, Calcium 8.4 L 12/11/21 06:38: POC Glucose 77 Micro: Microbiology 12/07/21 16:55 Stool Stool Occult Blood (DONNELL) - Final Occult Blood Positive 12/03/21 14:35 Nasal Secretion SARS-CoV-2 Antigen (Rapid) - Final Rhythm Strip Rhythm Strip: Sinus Tach Rate: 108 Ectopy: None Physical Exam Narrative Seen and examined. General: Awake, less lethargic, weak, loss of appetite HEENT: Atraumatic, PERRLA, EOMI, Normocephalic Oral: Oral mucosa moist. No Gingival or Mucosal Lesions/ Ulcerations Neck: Supple, No JVD, Negative Carotid Bruits Lungs: Air entry diminished in bilateral lung bases. No crepitation/rhonchi Cardiovascular: Regular rate, Regular Rhythm, Normal S1, Normal S2, systolic murmur LLSB Abdomen: Bowel Sounds Present, Soft, Non Tender, Non-Distended : Blanc catheter dark urine. No renal angle tenderness. No suprapubic tenderness. Extremities: Bilateral nonpitting lower leg edema, Capillary Refill Less than 3 Seconds Skin: No rashes, No breakdown Musculoskeletal: ROM severely restricted. No active movement. Cannot lift her legs. Left leg bigger than right leg, left tender calf. ROM restricted at knee and hip joints. Neurological: Cranial nerves II-XII grossly intact, DTR 2+/4, muscle strength 3/5 at major joints of lower extremity Psych/Mental Status: Flat affect. Assessment & Plan Assessment/Plan (1) Acute kidney injury: (2) Toxic metabolic encephalopathy: (3) Severe malnutrition: (4) Thrombocytopenia: PLAN: Plan This 71-year-old female was admitted with altered mental status, delusion; was talking to her mother who long time ago. Patient behavior was not appropri ate/derealization Toxic/metabolic encephalopathy, may be related to polypharmacy. Patient on mecl izine. Acute encephalopathy has resolved. B12 low at 222, on B12 oral replacement -TSH within normal limits JACOB secondary to severe dehydration, prerenal/obstructive: -Serum creatinine is 1.2-->0.3 above baseline on presentation -Serum is now able lysed and trending back down and now 1.66 -Continue IV fluids with LR 75 cc/h until patient is able to take p.o. adequately to maintain appropriate hydration -Renal ultrasound showed a possible mass posterior to the bladder versus hematoma--> Blanc placed and significant sediment and what looks like to be blood--> CT done with no comment with regards to the above--> Urology has seen the patient and will follow as an outpatient with no urgent needs for intervention at this time -FeNa is 6.9% on 12/06/2021 most consistent with obstructive -Blanc placed and serum creatinine is trending down at this point -Avoid nephrotoxins. Serum creatinine 1.39, BUN 42. -Would leave Blanc in at discharge 12/09: Creatinine getting better. 1.27. 12/10, creatinine 1.19. Hypomagnesemia, magnesium getting replaced. Mild hypokalemia, IV 20 M EQ KCl replaced. Thrombocytopenia: Certain differential diagnosis are HIT. Pretest probability, of 4 T score is 4 points intermediate probability 14%. Peripheral smear pending. MPV normal. -Heparin-induced platelet antibody pending -Heparin drip discontinued -Start bivalirudin drip -We will convert to oral agents once PEG tube is placed but need IV with rapid conversion until that point time -Hematology/oncology consult pending--> Case was discussed with Dr. Franco -PEG tube currently on hold due to severe thrombocytopenia 12/09: Platelet count still low, no significant difference. 12/10: Platelet is still low 71,000. Discussed with the surgeon. I agreed for platelet transfusion an hour before PEG tube procedure. Patient on bivalirudin drip 12/11: Platelet count 70,000 but that was before transfusion. Patient had 1 unit of platelet transfusion and then PEG tube by surgeon. Normocytic normochromic acute anemia with history of anemia of chronic disease/inflammatory anemia -Hemoglobin low 7.2 g, steadily getting low from baseline 11 to 12 g. Stool for occult blood positive. Transfuse hemoglobin less than 7 g. 12/10: Hemoglobin 7.5. WBC count 2.8 thousand. 12/11: Hemoglobin similar 7.8 with a low WBC count 3.3 thousand. Abnormal EKG -Current EKG with new T wave inversions in the inferior lateral leads -Patient with no active chest pain and symptoms are fairly nonspecific -Cardiac enzymes are normal x3 -Echocardiogram was unimpressive showing an EF of 55% with stage I diastolic dysfunction and a pulmonary artery systolic pressure of 27 mmHg Debility -Patient with 2 recent hip surgeries for replacement then revision secondary to recurrent dislocations -PT/OT following-participation is quite limited -May need placement at discharge Left lower extremity DVT-acute -Heparin drip initiated yesterday with CT of the abdomen pelvis pending -Await urology input and if no procedures required will convert to Eliquis as noted below -Plan to convert to Eliquis 10 mg p.o. twice daily for 7 days then 5 mg p.o. when longer-term anticoagulation is appropriate 2 mm right ureteral calculus with mild right hydronephrosis -Continue Flomax -Continue IV fluids -Urology has evaluated the patient and no need for any intervention Dry skin -Eucerin cream twice daily to lower extremities History of rheumatoid arthritis -Continue home hydroxychloroquine -Hold leflunomide until platelet count improvement -Continue home as needed Ultram Hypertension -Hold metoprolol with intermittent low blood pressures -Continue to monitor Severe depression -Continue duloxetine -Risperdal added -Anticipate this is significantly playing into her above presentation Severe malnutrition -Supplements given -Dietitian following -Continue Marinol -CT was unremarkable for any abnormalities that would suggest reason for decreased p.o. intake -If p.o. intake does not improve may need NG tube for supplementation and this was discussed with patient -Continue to encourage p.o.--> seems that this is predominantly behavioral -Patient continues to refuse to eat--> discussed with and he is agreeable to PEG tube--> plan was for PEG tube today however platelets are lower than they have been and will currently be on hold until improvement DVT prophylaxis -Bivalirudin drip -SCDs CODE STATUS -Full code as per discussion with on admission Total time of the visit including total time spent in counseling or coordination of care, (more than 50% of the total time, spent in obtaining medical information from nurses and other ancillary care providers,explaining to the patient about labs, imaging, diagnosis and management of active complex medical conditions), discussion with consultants surgeon and accounting system expert, review of labs and imaging is 25 minutes Charges/Coding Visit Charges Inpatient E&M: 51919 Subs Hosp L2
[2021-12-11 09:19] LABS: Magnesium 1.5 mg/dL (1.6-2.6); Phosphorus 3.1 mg/dL (2.5-4.9)
[2021-12-11 09:36] LABS: Pathologist Review Reviewed
[2021-12-11 09:38] LABS: Pathologist Review Reviewed
[2021-12-11] MEDS: Potassium Chloride 20mEq/100mL 20 MEQ/100 ML IV.SOLN. 100 MEQ IV BOLUS (09:38)
[2021-12-11] MEDS: 0.9% Saline Lock 10 ML Syringe IV ×2 (10:07→14:29)
--- NOTE | 2021-12-11 10:53 | NURSING ---
Addendum entered by Joan Cai RN 12/11/21 11:41: Travis from Pharmacy called this nurse back about angiomax; stated that when patient gets back from surgery, as long as the surgeon wants the angiomax restarted, to restart at the last therapeutic dose and get aptt Q2 x2 and call pharmacist with aptt results each time for any adjustments needed. Original Note: Called pharmacist Travis in regards to patient's angiomax. This RN notified that patient's angiomax was turned off [place] [address] Muller d/t surgery this morning. Asked about when patient starts back up on the angiomax what rate do they want and about the aptt time. Pharmacist stated that since patient has been therapeutic to just restart on same rate and keep scheduled aptt for 1837. Adjustments will be made after aptt results come back.
[2021-12-11] MEDS: Clindamycin 900 MG/50 ML BAG 75 MG IV (11:38)
[2021-12-11] MEDS: Lidocaine 2% /Epi 1:100 (20ml) 20 ML VIAL (11:45)
[2021-12-11 11:52] LABS: Pathologist Review Reviewed
[2021-12-11 12:02] LABS: Pathologist Review Reviewed
[2021-12-11 12:08] LABS: Pathologist Review Reviewed
--- NOTE | 2021-12-11 12:16 | OP.CCLET_ITS ---
12/11/2021 Billy Church Re : Upper GI endoscopy procedure for Lora Whittaker Dear Lynnette This procedure was performed on Saturday, December 11, 2021. My impressions and recommendations are as follows: Impressions : - LA Grade D esophagitis. Biopsied. - No gross lesions in the stomach. - Normal examined duodenum. - An externally removable PEG placement was successfully completed. Recommendations : - [facility]. - Please follow the post-PEG recommendations including: may use PEG today for meds and water and may use PEG tomorrow for feedings. - Continue present medications. My findings are described in the full procedure note, which is enclosed. If I can be of further assistance, please feel free to contact me at Doctor phone number(s): , Work: . Sincerely, MD Le Mcgrath MD 12/11/2021 12:16:31 PM This report has been signed electronically.
--- NOTE | 2021-12-11 12:16 | OP.EGD_ITS ---
Patient Name: Lora Whittaker Procedure Date: 12/11/2021 11:21 AM Date of : 1950 Age: 71 Procedure: Upper GI endoscopy Indications: Place PEG, Malnutrition Providers: Le Muller MD Medicines: Monitored Anesthesia Care Patient Profile: This is a 71 year old female. Complications: No immediate complications. Procedure: Pre-Anesthesia Assessment: - Prior to the procedure, a History and Physical was performed, and patient medications and allergies were reviewed. The patient's tolerance of previous anesthesia was also reviewed. The risks and benefits of the procedure and the sedation options and risks were discussed with the patient. All questions were answered, and informed consent was obtained. Prior Anticoagulants: The patient has taken bivalirudin gtt, last dose was day of procedure. ASA Grade Assessment: Per anesthesia. After reviewing the risks and benefits, the patient was deemed in satisfactory condition to undergo the procedure. After obtaining informed consent, the endoscope was passed under direct vision. Throughout the procedure, the patient's blood pressure, pulse, and oxygen saturations were monitored continuously. The gastroscope was introduced through the mouth, and advanced to the second part of duodenum. The upper GI endoscopy was accomplished without difficulty. The patient tolerated the procedure well. Scope In: 11:44:59 AM Scope Out: 12:05:42 PM Total Procedure Duration Time 0 hours 20 minutes 43 seconds Findings: LA Grade D (one or more mucosal breaks involving at least 75% of esophageal circumference) esophagitis with no bleeding was found 30 to 36 cm from the incisors. Biopsies were taken with a cold forceps for histology. The patient was placed in the supine position for PEG placement. The stomach was insufflated to appose gastric and abdominal pollard. A site was located in the body of the stomach with good transillumination for placement. The abdominal wall was marked and prepped in a sterile manner. The area was anesthetized with lido/epi 2% 1:100,000. The trocar needle was introduced through the abdominal wall and into the stomach under direct endoscopic view. A snare was introduced through the endoscope and opened in the gastric lumen. The guide wire was passed through the trocar and into the open snare. The snare was closed around the guide wire. The endoscope and snare were removed, pulling the wire out through the mouth. A skin incision was made at the site of needle insertion. The externally removable 20 Fr EndoVive Safety gastrostomy tube was lubricated. The G-tube was tied to the guide wire and pulled through the mouth and into the stomach. The trocar needle was removed, and the gastrostomy tube was pulled out from the stomach through the skin. The external bumper was attached to the gastrostomy tube, and the tube was cut to remove the guide wire. The final position of the gastrostomy tube was confirmed by relook endoscopy, and skin marking noted to be 4 cm at the external bumper. The final tension and compression of the abdominal wall by the PEG tube and external bumper were checked and revealed that the bumper was loose and lightly touching the skin. The feeding tube was capped, and the tube site cleaned and dressed. No gross lesions were noted in the entire examined stomach. The examined duodenum was normal. Impression: - LA Grade D esophagitis. Biopsied. - No gross lesions in the stomach. - Normal examined duodenum. - An externally removable PEG placement was successfully completed. Recommendation: - [facility]. - Please follow the post-PEG recommendations including: may use PEG today for meds and water and may use PEG tomorrow for feedings. - Continue present medications. Procedure Code(s): --- Professional --- 54373, Esophagogastroduodenoscopy, flexible, transoral; with directed placement of percutaneous gastrostomy tube 03947, Esophagogastroduodenoscopy, flexible, transoral; with biopsy, single or multiple Diagnosis Code(s): --- Professional --- K20.9, Esophagitis, unspecified Z43.1, Encounter for attention to gastrostomy E46, Unspecified protein-calorie malnutrition CPT copyright 2017 [employer]. All rights reserved. The codes documented in this report are preliminary and upon medical records coder review may be revised to meet current compliance requirements. MD Le Mcgrath MD 12/11/2021 12:16:31 PM This report has been signed electronically. Number of Addenda: 0 Note Initiated On: 12/11/2021 11:21 AM
[2021-12-11] MEDS: Iron Polysaccharide Complex 150 MG CAPSULE PO (14:51)
[2021-12-11] MEDS: Petrolatum 33% Tube 1 APPLIC TOPICAL ×2 (14:51→21:04)
[2021-12-11] MEDS: Hydroxychloroquine 200 MG Tablet PO (14:51)
[2021-12-11] MEDS: RisperiDONE 0.5 MG Tablet PO ×2 (14:52→21:05)
[2021-12-11] MEDS: DULoxetine Hcl 60 MG Capsule PO (14:52)
--- NOTE | 2021-12-11 15:09 | CM.ED ---
Addendum entered by Roxanna Holm 12/11/21 17:10: ISAÍAS received call from patient's son, Dayne. He said that his father is now calling and updated him regarding patient. Dayne said that the reason that patient was brought to the ED on Saturday was she was being belligerent. Dayne said I am not sure who is in charge but my dad, who is legally blind and deaf, has told me 3x that they are giving my mom heparin because of her electrolytes and stated that his father is not comprehending that patient is coming home at discharge. Roxanna FLORENTINO Addendum entered by Roxanna Holm 12/11/21 15:18: ISAÍAS spoke to [facility]. Patient was at [facility] and then prescribed 40 mg of Cymbalta and diagnosed with depression on 08/31/21. Original Note: ISAÍAS called [facility] and inquired about diagnosis and medication for patient upon her discharge from [facility] this summer. ISAÍAS was advised that patient did not have a discharge diagnosis and was discharged on Cymbalta with orientation x4. Roxanna FLORENTINO
--- NOTE | 2021-12-11 16:18 | PN.ONC_ITS ---
Physical Exam Const Constitutional Narrative: Not fully awake postprocedure General Appearance: lethargic Vital Signs Temperature 96.8 F L 12/11/21 15:15 Temperature Source Temporal 12/11/21 15:15 Pulse Rate 76 12/11/21 15:21 Pulse Strength Weak (1+) 12/11/21 08:28 Respiratory Rate 16 12/11/21 15:21 Respiratory Effort Non-Labored 12/11/21 15:21 Respiratory Depth Normal 12/11/21 15:21 Respiratory Pattern Normal 12/11/21 15:21 Blood Pressure 131/91 H 12/11/21 15:15 Blood Pressure Mean 104 12/11/21 15:15 Blood Pressure Source Monitor 12/11/21 15:15 Blood Pressure Position Semi-Fowlers 12/11/21 15:15 Blood Pressure Location Left Arm 12/11/21 15:15 Baseline BP 134/86 12/11/21 13:17 Pulse Ox 100 12/11/21 15:21 Oxygen Delivery Method Room Air 12/11/21 15:21 Laboratory Results - last 24 hr 12/07/21 17:08: Diff Path Review Reviewed 12/08/21 03:00: Diff Path Review Reviewed 12/09/21 05:19: Diff Path Review Reviewed 12/10/21 06:47: Diff Path Review Reviewed 12/10/21 17:01: POC Glucose 84 12/10/21 19:03: APTT 59.7 H 12/10/21 21:13: POC Glucose 82 12/11/21 06:38: APTT 64.2 H 12/11/21 06:38: WBC 3.3 L, RBC 2.82 L, Hgb 7.8 L, Hct 23.6 L, MCV 83.7, MCH 27.7, MCHC 33.1, RDW Std Deviation 51.8 H, RDW Coeff of Rita 16.8 H, Plt Count 70 L, MPV 10.7, Neut % (Auto) Not Reportable, Absolute Neuts (auto) 2.5, Absolute Lymphs (auto) 0.43 L, Total Counted 100, Neutrophils % (Manual) 76 H, Lymphocytes % (Manual) 13 L, Monocytes % (Manual) 5, Eosinophils % (Manual) 1, Metamyelocytes % 3 H, Promyelocytes % 2 H, Diff Path Review Reviewed, Platelet Estimate MOD DEC, RBC Morphology NORM C+C 12/11/21 06:38: Sodium 146 H, Potassium 3.2 L, Chloride 116 H, Carbon Dioxide 24.0, Anion Gap 6, BUN 30 H, Creatinine 1.09 H, Estim Creat Clear Calc 50.45, Est GFR (MDRD) Af Amer 63, Est GFR (MDRD) Non-Af 52 L, BUN/Creatinine Ratio 27.5 H, Glucose 83, Calcium 8.4 L 12/11/21 06:38: POC Glucose 77 12/11/21 06:38: Phosphorus 3.1, Magnesium 1.5 L HEP IND PLT AB 0.064 0.000-0.400 OD Performed at: [facility] [id number] Lace Inspector: Jaclyn Crum MD, Phone: [phone] Diagnostic Data Echocardiogram 12/03/21 14:51 Interpretation Summary Normal LV size. Left ventricular systolic function is normal. The estimated ejection fraction is 55 %. Pulmonary artery systolic pressure is 27 mmHg. Stage 1 diastolic dysfunction. The study was technically difficult. Ordering Physician: Argenis Foy Referring Physician: Billy Church Performed By: Daniela Patterson, RDCS, RVT Venous Doppler Study 12/03/21 14:51 Interpretation Summary Acute deep vein thrombosis is noted in the right common femoral vein, right femoral vein, right popliteal vein. Unable to visual below the knee. Acute deep vein thrombosis is noted in the left common femoral vein, left femoral vein, left popliteal vein, left tibio-peroneal trunk vein, left posterior tibial vein, left peroneal vein. Acute superficial vein thrombosis is noted in the right great saphenous vein. Acute superficial vein thrombosis is noted in the left great saphenous vein. Ordering Physician: Argenis Foy Referring Physician: Billy Church Performed By: Tiana Lara, T Abdomen CT 12/04/21 11:50 IMPRESSION: 2 mm calculus in the proximal right ureter with mild right hydronephrosis. Minimal right pleural thickening. Stable left renal cysts. Distended urinary bladder. Increased density in the gallbladder lumen suggestive of either gallstones or sludge Electronically Signed: Brandon Sosa MD at 15:18 EDT , Renal Ultrasound 12/05/21 07:10 IMPRESSION: Mass process posterior urinary bladder 8.05 x 4.95 x 1.4 cm. This could represent hemorrhage or transitional cell carcinoma. Simple cyst of the left kidney 2.6 x 3.0 x 2.6 cm. Electronically Signed: Andres Veras MD, WILL at 12:54 EDT , Abdomen/Pelvis CT 12/05/21 15:32 IMPRESSION: Stable findings. 2 mm calculus proximal right ureter with mild right hydronephrosis. 2 mm nonobstructing left upper pole calculus. Sludge within gallbladder lumen. Sigmoid diverticulosis. Simple cyst left kidney. Status post right hip arthroplasty. Status post bilateral pedicle screw fusion L4-5. Electronically Signed: Andres Veras MD, JD at 16:34 EDT , Chest X-Ray 12/07/21 13:42 IMPRESSION: The tip of the right PICC line catheter is at the junction of the superior vena cava and right atrium. Hypoinflation. The lungs are clear. Electronically Signed: Brandon Sosa MD at 14:05 EDT , Assessment & Plan Assessment/Plan (1) Thrombocytopenia: PLAN: Acute thrombocytopenia within 24-hours of admission and exposure to IV heparin.? The deep vein thrombosis diagnosis preceded and was indication for IV heparin use on December 04, 2021.? The altered mental status also precedes the onset of thrombocytopenia.? The patient has a normocytic anemia but no biochemical evidence to suggest hemolysis or chronic bleeding.? Her iron profile is consistent with anemia of chronic disease and inflammation.? Her B12 is normal. The 4 T score is 4 (intermediate probability for HIT, 10% risk) * Platelet count fall over 50% with gomez over 20,000: 2 points. * Although the platelet count drop occurred within 24 hours of admission, it is conceivable that the patient was exposed to heparin sometime between May through September 2021: One-point. * Thrombosis was found on admission prior to heparin: 0 points. * Other causes for thrombocytopenia, possible: 1-point. Heparin-induced thrombocytopenia antibody test is negative Therefore, heparin-induced thrombocytopenia is unlikely. Patient had a PEG tube placed December 11, 2021. Patient can be switched to a direct oral anticoagulant that can be administered through the PEG tube or by mouth. This has to be continued until she is fully ambulant and after completing a minimum of 3 months of anticoagulation. Longer anticoagulation possibly long-term advised if she has not fully ambulant for secondary prophylaxis. Will sign off follow-up at this time. Please reconsult if there are new hematologic problems. Yocasta Rueda MD [facility] [place], [facility] Divisions of Medical Oncology & Hematology Department of Internal Medicine [place] [phone] This note was generated using a voice recognition system software. Although it was reviewed by the author prior to finalization, it may still contain incorrect words, spelling, and punctuation that were not noted when reviewing prior to saving. If a clinically significant typo or inaccurately typed phrase is noted, please notify the author.
[2021-12-11 17:45] LABS: Bedside Glucose 98 mg/dL (74-106)
[2021-12-11 17:50] LABS: Partial Thromboplast Time 59.8 Seconds (24.1-36.2)
--- NOTE | 2021-12-11 18:17 | NURSING ---
Addendum entered by Joan Cai RN 12/11/21 18:52: Naresh called back and informed this RN to continue angiomax at the same rate and to have aptt drawn at 2030. Original Note: Called Naresh, pharmacist, about aptt results of 59.8. Naresh stated he would let me know if any adjustments needed to be done. Need to place another order for appt for 2 hours from now.
[2021-12-11 20:55] LABS: Partial Thromboplast Time 62.7 Seconds (24.1-36.2)
--- NOTE | 2021-12-11 21:16 | NURSING ---
Ptt 62.7 at this time. per lacey in pharmacy no changes to angiomax gtt at this time and to get next ptt in 12 hrs.
[2021-12-11 21:40] LABS: Bedside Glucose 93 mg/dL (74-106)
[2021-12-12] VITALS (12 sets, daily range): BP systolic 101–122; BP diastolic 73–82; PULSE 76–98; RESP 16; TEMP 35.7–36.6; O2SAT 93–99
[2021-12-12] MEDS: Levothyroxine 150 MCG Tablet PO (05:46)
[2021-12-12] MEDS: Dronabinol 2.5 MG Capsule PO ×2 (06:05→17:40)
[2021-12-12 06:31] LABS: Bedside Glucose 98 mg/dL (74-106)
[2021-12-12 08:35] LABS: Hematocrit 22.8 % (37-47); Hemoglobin 7.7 g/dL (12.0-15.0); Mean Corp Hgb Conc 33.8 g/dL (32-36); Mean Corpuscular Hgb 27.9 pg (27.0-32.0); Mean Corpuscular Volume 82.6 fL (81-99); Mean Platelet Vol. 10.7 fl (6.2-12.0); POSITIVE COUNT YES; POSITIVE DIFFERENTIAL YES; POSITIVE MORPHOLOGY YES; Platelet Count 77 K/mm3 (150-450); RBC Distribution Width SD 50.7 fl (35.1-43.9); Red Blood Count 2.76 M/mm3 (4.2-5.4); White Blood Count 3.9 K/mm3 (4.4-11.0)
--- NOTE | 2021-12-12 08:38 | PN.SURG_ITS ---
Subjective Subjective Status post PEG tube. No signs of bleeding from the PEG site. Objective Data Objective Data Vital Signs: Vital Signs Temp Pulse Resp BP Pulse Ox O2 Del Method 97.0 F L 80 16 122/80 H 99 Room Air 12/12/21 03:15 12/12/21 07:00 12/12/21 03:15 12/12/21 03:15 12/12/21 03:15 12/12/21 03:15 Oxygen Delivery Method Room Air Weight: 206 lb 9.17 oz Body Mass Index (BMI) 29.0 Intake & Output: Intake and Output for Last 24 Hours 12/10/21 12/11/21 12/12/21 23:59 23:59 23:59 Intake Total 2117.58 / 2167.58 2100.60 / 2100.60 100 / 100 Output Total 650 / 775 725 / 875 300 / 300 Balance 1467.58 / 1392.58 1375.60 / 1225.60 -200 / -200 Medical Nutrition Assessment Dietitian: Malnutrition Criteria Met Start: 12/04/21 14:18 Freq: Status: Active Protocol: Document 12/11/21 16:00 RMA (Rec: 12/11/21 16:00 RMA [id number]) Nutrition Malnutrition Evidence of Malnutrition Exists Yes Malnutrition (severe): Chronic Evidenced By Suboptimal Energy Intake ( Severe),Weight Loss (Severe) Clinical Problem Chronic Disease or Condition Related Malnutrition Etiology severe, chronic malnutrition r /t inadequate energy intake d/ t depression Signs/Symptoms as evidenced by unintentional wt loss of 18.7kg/20% x 2 months; estimated PO intake meeting <50% of estimated energy needs x 2 weeks 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 2.) Concerns for refeeding- recommend close monitoring of electrolytes. 3.) PEG placed today 12/11 and TF to start tentatively tomorrow 12/12 per surgery: Recommend Jevity 1.5 boluses- pt will not be appropriate for continuous feeds given mental status, concerns pt will pull at tubing. Per physician documentation, pt will have abd binder to keep PEG in place. Would start w/ 100mL bolus Jevity 1.5 5x/day with 40mL H2O flush before and after each bolus to provide 750 calories, 32 g protein, and 780mL total fluid/day. As pt tolerates, would increase boluses by 70mL to 170mL 5x/ day w/ 60mL H2O flush before and after each bolus. Goal rate would be 240mL Jevity 1.5 bolus 5x/day w/100mL H2O flush before and after each bolus to provide 1800 calories , 76 g protein, and 1912mL total fluid/day. Lab / Micro Data Result Diagrams: 12/11/21 06:38 12/11/21 06:38 Labs: Laboratory Results - last 24 hr 12/07/21 17:08: Diff Path Review Reviewed 12/08/21 03:00: Diff Path Review Reviewed 12/09/21 05:19: Diff Path Review Reviewed 12/10/21 06:47: Diff Path Review Reviewed 12/11/21 06:38: Diff Path Review Reviewed 12/11/21 06:38: Phosphorus 3.1, Magnesium 1.5 L 12/11/21 16:35: APTT 59.8 H 12/11/21 17:21: POC Glucose 98 12/11/21 20:30: APTT 62.7 H 12/11/21 21:11: POC Glucose 93 12/12/21 06:08: POC Glucose 98 Micro: Microbiology 12/07/21 16:55 Stool Stool Occult Blood (DONNELL) - Final Occult Blood Positive 12/03/21 14:35 Nasal Secretion SARS-CoV-2 Antigen (Rapid) - Final Rhythm Strip Rhythm Strip: Sinus Tach Rate: 108 Ectopy: None Physical Exam GI GI Narrative: PEG site clean dry and intact no signs of bleeding. Assessment & Plan Assessment/Plan (1) Severe malnutrition: (2) Acute DVT (deep venous thrombosis): (3) Thrombocytopenia: PLAN: Plan Patient tolerated EGD well no signs of bleeding at the PEG site. Okay to use PEG tube for tube feeds per primary/dietary. Le Muller M.D. Pager: [phone] [facility] [address] [place] [address], [facility], [address] [place] [address] Office: [phone]
[2021-12-12 08:39] LABS: Differential Indicated MANUAL DIFF
[2021-12-12 08:42] LABS: Partial Thromboplast Time 73.3 Seconds (24.1-36.2)
[2021-12-12 08:45] LABS: Anion Gap 6 (5-15); BUN 26 mg/dL (7-18); BUN/Creat Ratio 22.8 RATIO (10-20); Calcium,Total 8.1 mg/dL (8.5-10.1); Chloride 112 mmol/L (98-107); Creatinine, Serum 1.14 mg/dL (0.55-1.02); EST Glomerular Filtration Rate 50 mL/min (>60); Est Glom Filt Rate - Afr Amer 60 mL/min (>60); Estimated Creatinine Clearance 48.24 ml/min; Glucose 101 mg/dL (74-106); Potassium 3.2 mmol/L (3.5-5.1); Sodium Level 142 mmol/L (136-145)
[2021-12-12 09:40] LABS: Eosinophil 1 % (0-5); Lymphocyte 5 % (19-41); Metamyelocyte 5 % (0-1); Monocyte 1 % (0-10); Myelocyte 6 % (0-0); Neutrophil-Band 8 % (0-5); Neutrophil-Segmented 74 % (47-70); Total Cells Counted 100 (MANUAL DIFF)
[2021-12-12 09:41] LABS: Red Cell Morphology NORM C+C NORMAL (NORM C&C)
[2021-12-12 09:42] LABS: Platelet Estimate ADEQUATE (ADEQ)
[2021-12-12 09:44] LABS: Nucleated Red Bld Cells,Manual 3.9 % (0-5)
[2021-12-12 09:45] LABS: Absolute Neutrophil Count 3.2 X10^3/uL (2.0-7.7)
--- NOTE | 2021-12-12 10:18 | CASEMGMT ---
ISAÍAS contacted [facility] and spoke with Zara, one of the assistant case manager. ISAÍAS asked if ISAÍAS should send updates and are they able to take patient with a peg tube. Zara said she was going to have ISAÍAS speak with Ludy, their Nurse Practitioner as she will be able to better answer ISAÍAS's questions. Ludy was with a patient so Zara took SW's name and number. Brandee Estrada PHYSICAL PLANT EMPLOYEE [employer]
--- NOTE | 2021-12-12 10:47 | CASEMGMT ---
ISAÍAS received a call from Kemi at [facility]. Kemi said they would need updated notes, tube feed orders, a note that patient is medically cleared, and any information on the DVT follow up. Kemi also said if they accept patient they would need a weeks supply of tube feeds. ISAÍAS will check to see if this is even an option. Plan: [facility] vs [facility] Tamara Estrada PHYSICAL THERAPY PROFESSOR [place]
--- NOTE | 2021-12-12 10:50 | NURSING ---
Called Billy in pharmacy, Angio max has been held for the past hour per their order, and it was to restart at half of the previous rate of 1.1mL/hr which would be 0.55 mL/hr. Pump will not allow for 0.55mL/hr so asked for guidance on if it should run at 0.5 or 0.6 mL/hr. Per pharmacy, run at 0.6 mL/hr and order an APTT for two hours post rate change.
[2021-12-12] MEDS: FLU VACC QS2022-23(6MOS UP)/PF 60 MCG/0.5 ML SYRINGE IM (12:01)
[2021-12-12] MEDS: Petrolatum 33% Tube 1 APPLIC TOPICAL ×2 (12:03→21:13)
[2021-12-12] MEDS: DULoxetine Hcl 60 MG Capsule PO (12:03)
[2021-12-12] MEDS: RisperiDONE 0.5 MG Tablet PO ×2 (12:03→21:13)
[2021-12-12] MEDS: Iron Polysaccharide Complex 150 MG CAPSULE PO (12:04)
[2021-12-12 12:40] LABS: Bedside Glucose 96 mg/dL (74-106)
--- NOTE | 2021-12-12 13:30 | CASEMGMT ---
ISAÍAS met with patient's , Sriram. ISAÍAS notified Sriram that ISAÍAS has been speaking with [facility]. They are able to manage patient with her adl's and peg tube. ISAÍAS explained patient really needs to go to a facility where a psychiatrist can do a thorough evaluation of patient so she can get the care she needs. Patient's was in agreement with this plan. He did reiterate he absolutely does not want her to go to [facility]. ISAÍAS verbalized ISAÍAS was aware. Tamara Estrada PRICING COORDINATOR [employer]
[2021-12-12 13:37] LABS: Partial Thromboplast Time 68.2 Seconds (24.1-36.2)
--- NOTE | 2021-12-12 13:39 | NURSING ---
APTT result 68.2, Angimax infusing at 0.6 mL/hr. APTT is within goal range, order a APTT for two hours post result and if that is in goal range, we can do APTT's every twelve hours.
[2021-12-12] MEDS: Jevity 1.5. 1,000 ML Bottle 100 ML GT ×3 (14:48→21:47)
[2021-12-12 16:14] LABS: Partial Thromboplast Time 69.2 Seconds (24.1-36.2)
--- NOTE | 2021-12-12 16:23 | PCM.PN.HOSP ---
Subjective Subjective Follow-up for DVT, encephalopathy, pancytopenia and PEG tube. Patient is a still encephalopathic. Objective Data Objective Data Vital Signs: Vital Signs Temp Pulse Resp BP Pulse Ox O2 Del Method 96.9 F L 94 16 107/80 98 Room Air 12/12/21 15:51 12/12/21 15:51 12/12/21 15:51 12/12/21 15:51 12/12/21 15:51 12/12/21 15:51 Oxygen Delivery Method Room Air Weight: 206 lb 9.17 oz Body Mass Index (BMI) 29.0 Intake & Output: Intake and Output for Last 24 Hours 12/10/21 12/11/21 12/12/21 23:59 23:59 23:59 Intake Total 2117.58 / 2167.58 2100.60 / 2100.60 702.04 / 702.04 Output Total 650 / 775 725 / 875 300 / 300 Balance 1467.58 / 1392.58 1375.60 / 1225.60 402.04 / 402.04 Medical Nutrition Assessment Dietitian: Malnutrition Criteria Met Start: 12/04/21 14:18 Freq: Status: Active Protocol: Document 12/12/21 11:11 RMA (Rec: 12/12/21 11:12 RMA [id number]) Nutrition Malnutrition Evidence of Malnutrition Exists Yes Malnutrition (severe): Chronic Evidenced By Suboptimal Energy Intake ( Severe),Weight Loss (Severe) Clinical Problem Chronic Disease or Condition Related Malnutrition Etiology severe, chronic malnutrition r /t inadequate energy intake d/ t depression Signs/Symptoms as evidenced by unintentional wt loss of 18.7kg/20% x 2 months; estimated PO intake meeting <50% of estimated energy needs x 2 weeks 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 Pt is to remain NPO; will d /c PO ensure plus w/ medpass. 2. Concerns for refeeding- recommend close monitoring of electrolytes. 3. PEG placed yesterday 12/11 and TF to start today: will order Jevity 1.5 boluses to start w/ 100mL Jevity 1.5 5x/ day with 40mL H2O flush before and after each bolus to provide 750 calories, 32 g protein, and 780mL total fluid /day. 4. As pt tolerates, plan is to increase boluses by 70mL to 170mL 5x/day w/ 60mL H2O flush before and after each bolus. 5. Goal rate would be 240mL Jevity 1.5 bolus 5x/day w/ 100mL H2O flush before and after each bolus to provide 1800 calories, 76 g protein, and 1912mL total fluid/day. 6. Continue daily weights, trend closely. Lab / Micro Data Result Diagrams: 12/12/21 08:23 12/12/21 08:23 Labs: Laboratory Results - last 24 hr 12/11/21 16:35: APTT 59.8 H 12/11/21 17:21: POC Glucose 98 12/11/21 20:30: APTT 62.7 H 12/11/21 21:11: POC Glucose 93 12/12/21 06:08: POC Glucose 98 12/12/21 08:23: WBC 3.9 L, RBC 2.76 L, Hgb 7.7 L, Hct 22.8 L, MCV 82.6, MCH 27.9, MCHC 33.8, RDW Std Deviation 50.7 H, RDW Coeff of Rita 17.0 H, Plt Count 77 L, MPV 10.7, Neut % (Auto) Not Reportable, Absolute Neuts (auto) 3.2, Absolute Lymphs (auto) 0.20 L, Total Counted 100, Neutrophils % (Manual) 74 H, Band Neutrophils % 8 H, Lymphocytes % (Manual) 5 L, Monocytes % (Manual) 1, Eosinophils % (Manual) 1, Metamyelocytes % 5 H, Myelocytes % 6 H, Nucleated RBCs/100 WBC 3.9, Diff Path Review June, Platelet Estimate ADEQUATE, RBC Morphology NORM C+C 12/12/21 08:23: Sodium 142, Potassium 3.2 L, Chloride 112 H, Carbon Dioxide 24.0, Anion Gap 6, BUN 26 H, Creatinine 1.14 H, Estim Creat Clear Calc 48.24, Est GFR (MDRD) Af Amer 60, Est GFR (MDRD) Non-Af 50 L, BUN/Creatinine Ratio 22.8 H, Glucose 101, Calcium 8.1 L 12/12/21 08:23: APTT 73.3 H 12/12/21 12:00: POC Glucose 96 12/12/21 13:07: APTT 68.2 H 12/12/21 15:10: APTT 69.2 H Micro: Microbiology 12/11/21 Unknown Tissue - Other Gram Stain - Final 12/11/21 Unknown Tissue - Other Wound Culture - Preliminary Gram positive organism 12/07/21 16:55 Stool Stool Occult Blood (DONNELL) - Final Occult Blood Positive 12/03/21 14:35 Nasal Secretion SARS-CoV-2 Antigen (Rapid) - Final Rhythm Strip Rhythm Strip: Sinus Tach Rate: 108 Ectopy: None Physical Exam Narrative Seen and examined. General: Awake, lethargic, weak, loss of appetite HEENT: Atraumatic, PERRLA, EOMI, Normocephalic Oral: Oral mucosa moist. No Gingival or Mucosal Lesions/ Ulcerations Neck: Supple, No JVD, Negative Carotid Bruits Lungs: Air entry diminished in bilateral lung bases. No crepitation/rhonchi Cardiovascular: Regular rate, Regular Rhythm, Normal S1, Normal S2, systolic murmur LLSB Abdomen: PEG tube present. Tube feeding started. Bowel Sounds Present, Soft, Non Tender, Non-Distended : Blanc catheter dark urine. No renal angle tenderness. No suprapubic tenderness. Extremities: Bilateral nonpitting lower leg edema, Capillary Refill Less than 3 Seconds Skin: No rashes, No breakdown Musculoskeletal: ROM severely restricted. No active movement. Cannot lift her legs. Left leg bigger than right leg, left tender calf. ROM restricted at knee and hip joints. Neurological: Cranial nerves II-XII grossly intact, DTR 2+/4, muscle strength 3/5 at major joints of lower extremity Psych/Mental Status: Flat affect. Assessment & Plan Assessment/Plan (1) Acute kidney injury: (2) Toxic metabolic encephalopathy: (3) Severe malnutrition: (4) Thrombocytopenia: PLAN: Plan This 71-year-old female was admitted with altered mental status, delusion; was talking to her mother who long time ago. Patient behavior was not appropriate/derealization Toxic/metabolic encephalopathy, may be related to polypharmacy. Patient on meclizine. Acute encephalopathy has resolved. B12 low at 222, on B12 oral replacement -TSH within normal limits JACOB secondary to severe dehydration, prerenal/obstructive: -Serum creatinine is 1.2-->0.3 above baseline on presentation -Serum is now able lysed and trending back down and now 1.66 -Continue IV fluids with LR 75 cc/h until patient is able to take p.o. adequately to maintain appropriate hydration -Renal ultrasound showed a possible mass posterior to the bladder versus hematoma--> Blanc placed and significant sediment and what looks like to be blood--> CT done with no comment with regards to the above--> Urology has seen the patient and will follow as an outpatient with no urgent needs for intervention at this time -FeNa is 6.9% on 12/06/2021 most consistent with obstructive -Blanc placed and serum creatinine is trending down at this point -Avoid nephrotoxins. Serum creatinine 1.39, BUN 42. -Would leave Blanc in at discharge 12/09: Creatinine getting better. 1.27. 12/10, creatinine 1.19. Hypomagnesemia, magnesium getting replaced. Mild hypokalemia, IV 20 M EQ KCl replaced. 12/12: Patient creatinine Is around 50 mill per minute. Potassium replacement ordered.Monitor electrolytes. Thrombocytopenia: Certain differential diagnosis are HIT. Pretest probability, of 4 T score is 4 points intermediate probability 14%. Peripheral smear pending. MPV normal. -Heparin-induced platelet antibody pending -Heparin drip discontinued -Start bivalirudin drip -We will convert to oral agents once PEG tube is placed but need IV with rapid conversion until that point time -Hematology/oncology consult pending--> Case was discussed with Dr. Franco -PEG tube currently on hold due to severe thrombocytopenia 12/09: Platelet count still low, no significant difference. 12/10: Platelet is still low 71,000. Discussed with the surgeon. I agreed for platelet transfusion an hour before PEG tube procedure. Patient on bivalirudin drip 12/11: Platelet count 70,000 but that was before transfusion. Patient had 1 unit of platelet transfusion and then PEG tube by surgeon. 12/12: Platelet antibodies negative. It is unlikely patient has HIT. Discussed with import coordinator, Dr Rueda. BUN drip stopped and start on rivaroxaban 20 mg after 1 hour stopping Coumadin 2. Continue for 3 months and then follow-up in hematology clinic with Dr Rueda and he will reevaluate whether to continue further. Normocytic normochromic acute anemia with history of anemia of chronic disease/inflammatory anemia -Hemoglobin low 7.2 g, steadily getting low from baseline 11 to 12 g. Stool for occult blood positive. Transfuse hemoglobin less than 7 g. 12/10: Hemoglobin 7.5. WBC count 2.8 thousand. 12/11: Hemoglobin similar 7.8 with a low WBC count 3.3 thousand. 12/12: Patient hemoglobin is still above 7, platelet count 77,000. I think patient will able to tolerate Xarelto 20 mg daily but not 15 mg twice daily loading dose. Discussed with import coordinator Abnormal EKG -Current EKG with new T wave inversions in the inferior lateral leads -Patient with no active chest pain and symptoms are fairly nonspecific -Cardiac enzymes are normal x3 -Echocardiogram was unimpressive showing an EF of 55% with stage I diastolic dysfunction and a pulmonary artery systolic pressure of 27 mmHg Debility -Patient with 2 recent hip surgeries for replacement then revision secondary to recurrent dislocations -PT/OT following-participation is quite limited -May need placement at discharge Left lower extremity DVT-acute -Heparin drip initiated yesterday with CT of the abdomen pelvis pending -Await urology input and if no procedures required will convert to Eliquis as noted below -Plan to convert to Eliquis 10 mg p.o. twice daily for 7 days then 5 mg p.o. when longer-term anticoagulation is appropriate 2 mm right ureteral calculus with mild right hydronephrosis -Continue Flomax -Continue IV fluids -Urology has evaluated the patient and no need for any intervention Dry skin -Eucerin cream twice daily to lower extremities History of rheumatoid arthritis -Continue home hydroxychloroquine -Hold leflunomide until platelet count improvement -Continue home as needed Ultram Hypertension -Hold metoprolol with intermittent low blood pressures -Continue to monitor Severe depression -Continue duloxetine -Risperdal added -Anticipate this is significantly playing into her above presentation Severe malnutrition -Supplements given -Dietitian following -Continue Marinol -CT was unremarkable for any abnormalities that would suggest reason for decreased p.o. intake -If p.o. intake does not improve may need NG tube for supplementation and this was discussed with patient -Continue to encourage p.o.--> seems that this is predominantly behavioral -Patient continues to refuse to eat--> discussed with and he is agreeable to PEG tube--> plan was for PEG tube today however platelets are lower than they have been and will currently be on hold until improvement DVT prophylaxis On Xarelto -SCDs CODE STATUS -Full code as per discussion with on admission Total time of the visit including total time spent in counseling or coordination of care, (more than 50% of the total time, spent in obtaining medical information from nurses and other ancillary care providers,explaining to the patient about labs, imaging, diagnosis and management of active complex medical conditions), discussion with consultants surgeon and import coordinator, review of labs and imaging is 40 minutes Microbiology Past 72 Hours 12/11/21 Unknown Tissue - Other Gram Stain - Final 12/11/21 Unknown Tissue - Other Wound Culture - Preliminary Gram positive organism Laboratory Results 12/11/21 16:35: APTT 59.8 H 12/11/21 17:21: POC Glucose 98 12/11/21 20:30: APTT 62.7 H 12/11/21 21:11: POC Glucose 93 12/12/21 06:08: POC Glucose 98 12/12/21 08:23: WBC 3.9 L, RBC 2.76 L, Hgb 7.7 L, Hct 22.8 L, MCV 82.6, MCH 27.9, MCHC 33.8, RDW Std Deviation 50.7 H, RDW Coeff of Rita 17.0 H, Plt Count 77 L, MPV 10.7, Neut % (Auto) Not Reportable, Absolute Neuts (auto) 3.2, Absolute Lymphs (auto) 0.20 L, Total Counted 100, Neutrophils % (Manual) 74 H, Band Neutrophils % 8 H, Lymphocytes % (Manual) 5 L, Monocytes % (Manual) 1, Eosinophils % (Manual) 1, Metamyelocytes % 5 H, Myelocytes % 6 H, Nucleated RBCs/100 WBC 3.9, Diff Path Review June, Platelet Estimate ADEQUATE, RBC Morphology NORM C+C 12/12/21 08:23: Sodium 142, Potassium 3.2 L, Chloride 112 H, Carbon Dioxide 24.0, Anion Gap 6, BUN 26 H, Creatinine 1.14 H, Estim Creat Clear Calc 48.24, Est GFR (MDRD) Af Amer 60, Est GFR (MDRD) Non-Af 50 L, BUN/Creatinine Ratio 22.8 H, Glucose 101, Calcium 8.1 L 12/12/21 08:23: APTT 73.3 H 12/12/21 12:00: POC Glucose 96 12/12/21 13:07: APTT 68.2 H 12/12/21 15:10: APTT 69.2 H Charges/Coding Visit Charges Inpatient E&M: 39119 Subs Hosp L3
[2021-12-12] MEDS: Rivaroxaban 20 MG Tablet GT (17:40)
[2021-12-12] MEDS: Potassium Chloride Oral Soln 20 MEQ/15 ML UDC 40 MEQ GT ×2 (17:41→21:14)
[2021-12-12] MEDS: Hydroxychloroquine 200 MG Tablet PO (17:41)
[2021-12-12] MEDS: Tamsulosin HCl 0.4 MG Capsule PO (17:41)
[2021-12-12] MEDS: 0.9% Saline Lock 10 ML Syringe IV ×2 (17:51→23:09)
[2021-12-12 18:10] LABS: Bedside Glucose 132 mg/dL (74-106)
--- NOTE | 2021-12-12 19:03 | NURSING ---
Charting reviewed with Elsa Reddy RN
[2021-12-12 22:10] LABS: Bedside Glucose 139 mg/dL (74-106)
[2021-12-13] VITALS (12 sets, daily range): BP systolic 110–114; BP diastolic 66–85; PULSE 83–101; RESP 16–18; TEMP 35.9–36.1; O2SAT 98–100
[2021-12-13] MEDS: Menthol/Lanolin/Calamine/Znox 113 GM Tube 1 APPLIC TOPICAL ×4 (00:31→22:23)
[2021-12-13 05:37] LABS: Hematocrit 22.1 % (37-47); Hemoglobin 7.5 g/dL (12.0-15.0); Mean Corp Hgb Conc 33.9 g/dL (32-36); Mean Corpuscular Hgb 27.9 pg (27.0-32.0); Mean Corpuscular Volume 82.2 fL (81-99); Mean Platelet Vol. 10.4 fl (6.2-12.0); POSITIVE COUNT YES; POSITIVE DIFFERENTIAL YES; POSITIVE MORPHOLOGY YES; Platelet Count 78 K/mm3 (150-450); RBC Distribution Width CV 16.7 % (11.6-14.6); RBC Distribution Width SD 49.6 fl (35.1-43.9); Red Blood Count 2.69 M/mm3 (4.2-5.4)
[2021-12-13 05:38] LABS: Differential Indicated MANUAL DIFF
[2021-12-13] MEDS: Levothyroxine 150 MCG Tablet PO (05:44)
[2021-12-13] MEDS: Jevity 1.5. 1,000 ML Bottle 100 ML GT ×5 (05:44→22:45)
[2021-12-13 06:02] LABS: Anisocytosis 1+; Platelet Estimate MOD DEC (ADEQ)
[2021-12-13 06:06] LABS: Absolute Neutrophil Count 4.7 X10^3/uL (2.0-7.7); Anion Gap 6 (5-15); BUN 27 mg/dL (7-18); BUN/Creat Ratio 20.8 RATIO (10-20); Calcium,Total 7.8 mg/dL (8.5-10.1); Chloride 113 mmol/L (98-107); EST Glomerular Filtration Rate 43 mL/min (>60); Est Glom Filt Rate - Afr Amer 52 mL/min (>60); Glucose 145 mg/dL (74-106); Magnesium 1.7 mg/dL (1.6-2.6); Potassium 4.1 mmol/L (3.5-5.1); Sodium Level 142 mmol/L (136-145)
[2021-12-13 06:07] LABS: Absolute Lymphocyte Count 0.48 X10^3/uL (0.83-4.51); Atypical Lymphocyte 1+ %; Eosinophil 1 % (0-5); Lymphocyte 8 % (19-41); Metamyelocyte 1 % (0-1); Monocyte 3 % (0-10); Myelocyte 6 % (0-0); Neutrophil-Band 9 % (0-5); Neutrophil-Segmented 70 % (47-70); Promyelocyte 2 % (0-0); Red Cell Morphology NORM C+C NORMAL (NORM C&C); Total Cells Counted 100 (MANUAL DIFF)
[2021-12-13 06:13] LABS: Phosphorus 2.9 mg/dL (2.5-4.9)
--- NOTE | 2021-12-13 09:01 | RAD_ITS ---
STUDY: X-RAY CHEST REASON FOR EXAM: Female, 71 years old. SOB TECHNIQUE: Single AP portable view of the chest. COMPARISON: Comparison is made with prior examination dated 12/07/2021. FINDINGS: A right-sided PICC line catheter is seen with the tip at the junction of the superior vena cava and right atrium. EKG electrodes are seen. The lungs are clear and expanded. There is no demonstrated pleural abnormality. Normal size heart. Normal mediastinum and nathalia. Normal visualized pulmonary arteries. There is atherosclerotic calcification of the aortic arch with tortuosity. There are diffuse degenerative changes of the visualized thoracic spine. There is degenerative osteoarthritis of the bilateral shoulders. Hiatal hernia. RAD/Chest 1 View (Portable) IMPRESSION: No acute abnormality is seen. Electronically Signed: Brandon Sosa MD at 9:49 EDT ,
[2021-12-13] MEDS: 0.9% Saline Lock 10 ML Syringe IV (10:21)
[2021-12-13] MEDS: Furosemide 20 MG/2 ML VIAL IV (10:21)
--- NOTE | 2021-12-13 10:21 | CASEMGMT ---
ISAÍAS called [facility] in [place] and spoke with Betty in admissions. ISAÍAS let her know patient is not medically ready for discharge yet. ISAÍAS will continue to follow and keep [facility] updated. Plan: [facility] vs [facility]
[2021-12-13] MEDS: Petrolatum 33% Tube 1 APPLIC TOPICAL ×2 (10:24→22:24)
[2021-12-13] MEDS: Potassium Chloride Oral Soln 20 MEQ/15 ML UDC 40 MEQ GT ×2 (10:25→22:44)
[2021-12-13] MEDS: Hydroxychloroquine 200 MG Tablet PO ×2 (10:26→18:42)
[2021-12-13] MEDS: RisperiDONE 1 MG Tablet PO ×2 (10:27→22:44)
[2021-12-13 11:01] LABS: Bedside Glucose 129 mg/dL (74-106)
[2021-12-13 11:05] LABS: Bedside Glucose 114 mg/dL (74-106)
--- NOTE | 2021-12-13 11:50 | PN.HOSP_ITS ---
Subjective Subjective Follow-up for generalized swelling of hand and legs, anasarca, patient sleepy on baseline mental status. Urine output was 30 ml overnight.Discussed with the nursing staff Objective Data Objective Data Vital Signs: Vital Signs Temp Pulse Resp BP Pulse Ox O2 Del Method 96.8 F L 87 16 113/76 100 Room Air 12/13/21 10:20 12/13/21 10:20 12/13/21 10:20 12/13/21 10:20 12/13/21 10:20 12/13/21 10:20 Oxygen Delivery Method Room Air Weight: 209 lb 7.026 oz Body Mass Index (BMI) 29.0 Intake & Output: Intake and Output for Last 24 Hours 12/11/21 12/12/21 12/13/21 23:59 23:59 23:59 Intake Total 2100.60 / 2100.60 1839.66 / 1839.66 1085.83 / 1085.83 Output Total 725 / 875 350 / 350 20 / 20 Balance 1375.60 / 1225.60 1489.66 / 1489.66 1065.83 / 1065.83 Medical Nutrition Assessment Dietitian: Malnutrition Criteria Met Start: 12/04/21 14:18 Freq: Status: Active Protocol: Document 12/12/21 11:11 RMA (Rec: 12/12/21 11:12 RMA [id number]) Nutrition Malnutrition Evidence of Malnutrition Exists Yes Malnutrition (severe): Chronic Evidenced By Suboptimal Energy Intake ( Severe),Weight Loss (Severe) Clinical Problem Chronic Disease or Condition Related Malnutrition Etiology severe, chronic malnutrition r /t inadequate energy intake d/ t depression Signs/Symptoms as evidenced by unintentional wt loss of 18.7kg/20% x 2 months; estimated PO intake meeting <50% of estimated energy needs x 2 weeks [employer]; estimated PO intake meeting < 75% of estimated energy needs x 6 months; need for enteral nutrition support Status Active Problem Recommendation Dietitian Recommendations/Changes 1. Pt is to remain NPO; will d /c PO ensure plus w/ medpass. 2. Concerns for refeeding- recommend close monitoring of electrolytes. 3. PEG placed yesterday 12/11 and TF to start today: will order Jevity 1.5 boluses to start w/ 100mL Jevity 1.5 5x/ day with 40mL H2O flush before and after each bolus to provide 750 calories, 32 g protein, and 780mL total fluid /day. 4. As pt tolerates, plan is to increase boluses by 70mL to 170mL 5x/day w/ 60mL H2O flush before and after each bolus. 5. Goal rate would be 240mL Jevity 1.5 bolus 5x/day w/ 100mL H2O flush before and after each bolus to provide 1800 calories, 76 g protein, and 1912mL total fluid/day. 6. Continue daily weights, trend closely. Lab / Micro Data Result Diagrams: 12/13/21 05:09 12/13/21 05:09 Labs: Laboratory Results - last 24 hr 12/12/21 12:00: POC Glucose 96 12/12/21 13:07: APTT 68.2 H 12/12/21 15:10: APTT 69.2 H 12/12/21 17:41: POC Glucose 132 H 12/12/21 21:09: POC Glucose 139 H 12/13/21 05:09: WBC 6.0, RBC 2.69 L, Hgb 7.5 L, Hct 22.1 L, MCV 82.2, MCH 27.9, MCHC 33.9, RDW Std Deviation 49.6 H, RDW Coeff of Rita 16.7 H, Plt Count 78 L, MPV 10.4, Neut % (Auto) Not Reportable, Absolute Neuts (auto) 4.7, Absolute Lymphs (auto) 0.48 L, Total Counted 100, Neutrophils % (Manual) 70, Band Neutrophils % 9 H, Lymphocytes % (Manual) 8 L, Monocytes % (Manual) 3, Eosinophils % (Manual) 1, Metamyelocytes % 1, Myelocytes % 6 H, Promyelocytes % 2 H, Diff Path Review May foll, Atypical Lymphocytes 1+, Platelet Estimate MOD DEC, RBC Morphology NORM C+C, Anisocytosis 1+ 12/13/21 05:09: Sodium 142, Potassium 4.1, Chloride 113 H, Carbon Dioxide 23.0, Anion Gap 6, BUN 27 H, Creatinine 1.30 H, Estim Creat Clear Calc 42.30, Est GFR (MDRD) Af Amer 52 L, Est GFR (MDRD) Non-Af 43 L, BUN/Creatinine Ratio 20.8 H, Glucose 145 H, Calcium 7.8 L, Magnesium 1.7 12/13/21 05:09: Phosphorus 2.9 12/13/21 06:39: POC Glucose 129 H 12/13/21 10:44: POC Glucose 114 H Micro: Microbiology 12/11/21 Unknown Tissue - Other Gram Stain - Final 12/11/21 Unknown Tissue - Other Wound Culture - Preliminary Gram positive organism 12/11/21 Unknown Tissue - Other Anaerobic Culture - Preliminary 12/07/21 16:55 Stool Stool Occult Blood (DONNELL) - Final Occult Blood Positive 12/03/21 14:35 Nasal Secretion SARS-CoV-2 Antigen (Rapid) - Final Radiography Diagnostic Testing: Radiology Impression Chest X-Ray 12/13/21 09:01 IMPRESSION: No acute abnormality is seen. Electronically Signed: Brandon Sosa MD at 9:49 EDT , Rhythm Strip Rhythm Strip: Sinus Tach Rate: 108 Ectopy: None Physical Exam Narrative Seen and examined. General: Awake, lethargic, weak, loss of appetite HEENT: Atraumatic, PERRLA, EOMI, Normocephalic Oral: Oral mucosa moist. No Gingival or Mucosal Lesions/ Ulcerations Neck: Supple, No JVD, Negative Carotid Bruits Lungs: Air entry diminished in bilateral lung bases. No crepitation/rhonchi Cardiovascular: Regular rate, Regular Rhythm, Normal S1, Normal S2, systolic murmur LLSB Abdomen: PEG tube present. Tube feeding started. Bowel Sounds Present, Soft, Non Tender, Non-Distended : Anuria 30 ml overnight. No renal angle tenderness. No suprapubic tenderness. Extremities: Bilateral nonpitting lower leg edema, Capillary Refill Less than 3 Seconds Skin: No rashes, No breakdown Musculoskeletal: ROM severely restricted. No active movement. Cannot lift her legs. Left leg bigger than right leg. ROM restricted at knee and hip joints. Neurological: Cranial nerves II-XII grossly intact, DTR 2/4, muscle strength 3/5 at major joints of lower extremity Psych/Mental Status: Flat affect. Assessment & Plan Assessment/Plan (1) Acute kidney injury: (2) Toxic metabolic encephalopathy: (3) Severe malnutrition: (4) Thrombocytopenia: PLAN: Plan This 71-year-old female was admitted with altered mental status, delusion; was talking to her mother who long time ago. Patient behavior was not appropriate/derealization. Patient does not have appetite and is very de pressed. Toxic/metabolic encephalopathy, may be related to polypharmacy. Patient on meclizine. Acute encephalopathy has resolved. B12 low at 222, on B12 oral replacement -TSH within normal limits 12/13: Patient is still mumbles few words, opens eyes, looks depressed but no meaningful conversation. On tube feed. JACOB secondary to severe dehydration, prerenal/obstructive: -Serum creatinine is 1.2-->0.3 above baseline on presentation -Serum is now able lysed and trending back down and now 1.66 -Continue IV fluids with LR 75 cc/h until patient is able to take p.o. adequately to maintain appropriate hydration -Renal ultrasound showed a possible mass posterior to the bladder versus hematoma--> Blanc placed and significant sediment and what looks like to be blood--> CT done with no comment with regards to the above--> Urology has seen the patient and will follow as an outpatient with no urgent needs for intervention at this time -FeNa is 6.9% on 12/06/2021 most consistent with obstructive -Blanc placed and serum creatinine is trending down at this point -Avoid nephrotoxins. Serum creatinine 1.39, BUN 42. -Would leave Blanc in at discharge 12/09: Creatinine getting better. 1.27. 12/10, creatinine 1.19. Hypomagnesemia, magnesium getting replaced. Mild hypokalemia, IV 20 M EQ KCl replaced. 12/12: Patient creatinine Is around 50 mill per minute. Potassium replacement ordered.Monitor electrolytes. 12/13: Patient had anuria, urine output 30 mL and Ringer lactate was restarted yesterday. Patient also has diffuse edema of upper and lower extremities. IV fluid was stopped and Lasix 20 mg IV was given patient had 350 mill urine output as per nursing staff. Company Dancer was consulted. After discussion with material damage adjuster it was made clear that TTP was ruled out at the time of admission. Thrombocytopenia: Certain differential diagnosis are HIT. Pretest probability, of 4 T score is 4 points intermediate probability 14%. Peripheral smear pending. MPV normal. -Heparin-induced platelet antibody pending -Heparin drip discontinued -Start bivalirudin drip -We will convert to oral agents once PEG tube is placed but need IV with rapid conversion until that point time -Hematology/oncology consult pending--> Case was discussed with Dr. Franco -PEG tube currently on hold due to severe thrombocytopenia 12/09: Platelet count still low, no significant difference. 12/10: Platelet is still low 71,000. Discussed with the surgeon. I agreed for platelet transfusion an hour before PEG tube procedure. Patient on bivalirudin drip 12/11: Platelet count 70,000 but that was before transfusion. Patient had 1 unit of platelet transfusion and then PEG tube by surgeon. 12/12: Platelet antibodies negative. It is unlikely patient has HIT. Discussed with traffic operations manager, Dr Rueda. BUN drip stopped and start on rivaroxaban 20 mg after 1 hour stopping Coumadin 2. Continue for 3 months and then follow-up in hematology clinic with Dr Rueda and he will reevaluate whether to continue further. 12/13: In view of severe anemia, thrombocytopenia, altered mental status and anuria, the suspicion of TTP was raised by material damage adjuster after discussion. I told him that traffic operations manager was consulted to rule out TTP at the time of admis peter and was ruled out as platelet count was normal at that time and it went low after starting IV heparin drip material damage adjuster. At that time traffic operations manager reviewed the peripheral smear and ruled out TTP. I discussed with pathologist Dr. Arias and reviewed peripheral smear for last 2 days and states he received RBC fragment but not abundance. After discussion with traffic operations manager, few fragments may be from hemolysis that has to be diffuse to to meet the diagnosis of TTP. LDH was also not more than 2 or 3 times for diagnosis of TTP. Normocytic normochromic acute anemia with history of anemia of chronic disease/inflammatory anemia -Hemoglobin low 7.2 g, steadily getting low from baseline 11 to 12 g. Stool for occult blood positive. Transfuse hemoglobin less than 7 g. 12/10: Hemoglobin 7.5. WBC count 2.8 thousand. 12/11: Hemoglobin similar 7.8 with a low WBC count 3.3 thousand. 12/12: Patient hemoglobin is still above 7, platelet count 77,000. I think patient will able to tolerate Xarelto 20 mg daily but not 15 mg twice daily loading dose. Discussed with traffic operations manager 12/13: Hemoglobin 7.5. Abnormal EKG -Current EKG with new T wave inversions in the inferior lateral leads -Patient with no active chest pain and symptoms are fairly nonspecific -Cardiac enzymes are normal x3 -Echocardiogram was unimpressive showing an EF of 55% with stage I diastolic dysfunction and a pulmonary artery systolic pressure of 27 mmHg Debility -Patient with 2 recent hip surgeries for replacement then revision secondary to recurrent dislocations -PT/OT following-participation is quite limited -May need placement at discharge Left lower extremity DVT-acute -Heparin drip initiated yesterday with CT of the abdomen pelvis pending -Await urology input and if no procedures required will convert to Eliquis as noted below -Plan to convert to Eliquis 10 mg p.o. twice daily for 7 days then 5 mg p.o. when longer-term anticoagulation is appropriate 2 mm right ureteral calculus with mild right hydronephrosis -Continue Flomax -Continue IV fluids -Urology has evaluated the patient and no need for any intervention Dry skin -Eucerin cream twice daily to lower extremities History of rheumatoid arthritis -Continue home hydroxychloroquine -Hold leflunomide until platelet count improvement -Continue home as needed Ultram Hypertension -Hold metoprolol with intermittent low blood pressures -Continue to monitor Severe depression -Continue duloxetine -Risperdal added -Anticipate this is significantly playing into her above presentation Severe malnutrition -Supplements given -Dietitian following -Continue Marinol -CT was unremarkable for any abnormalities that would suggest reason for decreased p.o. intake -If p.o. intake does not improve may need NG tube for supplementation and this was discussed with patient -Continue to encourage p.o.--> seems that this is predominantly behavioral -Patient continues to refuse to eat--> discussed with and he is agreeable to PEG tube--> plan was for PEG tube today however platelets are lower than they have been and will currently be on hold until improvement DVT prophylaxis On Xarelto -SCDs CODE STATUS -Full code as per discussion with on admission Total time of the visit including total time spent in counseling or coordination of care, (more than 50% of the total time, spent in obtaining medical information from nurses and other ancillary care providers,explaining to the patient about labs, imaging, diagnosis and management of active complex medical conditions), discussion with material damage adjuster and traffic operations manager, review of labs and imaging is 46 minutes Microbiology Past 72 Hours 12/11/21 Unknown Tissue - Other Gram Stain - Final 12/11/21 Unknown Tissue - Other Wound Culture - Preliminary Staphylococcus aureus Coag Negative Staph Gram positive terra Laboratory Results 12/12/21 13:07: APTT 68.2 H 12/12/21 15:10: APTT 69.2 H 12/12/21 17:41: POC Glucose 132 H 12/12/21 21:09: POC Glucose 139 H 12/13/21 05:09: WBC 6.0, RBC 2.69 L, Hgb 7.5 L, Hct 22.1 L, MCV 82.2, MCH 27.9, MCHC 33.9, RDW Std Deviation 49.6 H, RDW Coeff of Rita 16.7 H, Plt Count 78 L, MPV 10.4, Neut % (Auto) Not Reportable, Absolute Neuts (auto) 4.7, Absolute Lymphs (auto) 0.48 L, Total Counted 100, Neutrophils % (Manual) 70, Band Neutrophils % 9 H, Lymphocytes % (Manual) 8 L, Monocytes % (Manual) 3, Eosinophils % (Manual) 1, Metamyelocytes % 1, Myelocytes % 6 H, Promyelocytes % 2 H, Diff Path Review May foll, Atypical Lymphocytes 1+, Platelet Estimate MOD DEC, RBC Morphology NORM C+C, Anisocytosis 1+ 12/13/21 05:09: Sodium 142, Potassium 4.1, Chloride 113 H, Carbon Dioxide 23.0, Anion Gap 6, BUN 27 H, Creatinine 1.30 H, Estim Creat Clear Calc 42.30, Est GFR (MDRD) Af Amer 52 L, Est GFR (MDRD) Non-Af 43 L, BUN/Creatinine Ratio 20.8 H, Glucose 145 H, Calcium 7.8 L, Magnesium 1.7 12/13/21 05:09: Phosphorus 2.9 12/13/21 06:39: POC Glucose 129 H 12/13/21 10:44: POC Glucose 114 H Charges/Coding Multi Select Codes Visit Charges Visit Charges: 94025 Subs Hosp L3
[2021-12-13 17:40] LABS: Bedside Glucose 125 mg/dL (74-106)
[2021-12-13] MEDS: Rivaroxaban 20 MG Tablet GT (18:42)
--- NOTE | 2021-12-13 19:35 | NURSING ---
Charting reviewed with Elsa Reddy RN
[2021-12-13 22:45] LABS: Bedside Glucose 123 mg/dL (74-106)
[2021-12-14] VITALS (14 sets, daily range): BP systolic 105–224; BP diastolic 73–192; PULSE 83–116; RESP 11–18; TEMP 35.6–36.6; O2SAT 96–100
[2021-12-14] MEDS: Levothyroxine 150 MCG Tablet PO (05:31)
[2021-12-14] MEDS: Jevity 1.5. 1,000 ML Bottle 100 ML GT ×2 (05:33→10:55)
[2021-12-14] MEDS: Menthol/Lanolin/Calamine/Znox 113 GM Tube 1 APPLIC TOPICAL ×3 (05:34→22:18)
[2021-12-14 06:03] LABS: Magnesium 1.7 mg/dL (1.6-2.6)
[2021-12-14 06:55] LABS: Bedside Glucose 107 mg/dL (74-106)
[2021-12-14 08:23] LABS: ALB/GLOB Ratio 0.7 RATIO (0.9-2.4); AST(SGOT) 14 U/L (15-37); Alanine Aminotransfer ALT/SGPT 13 U/L (13-56); Albumin, Serum 1.8 g/dL (3.2-5.0); Alkaline Phosphatase 66 U/L (45-117); Anion Gap 4 (5-15); BUN 26 mg/dL (7-18); BUN/Creat Ratio 18.2 RATIO (10-20); Calcium,Total 8.1 mg/dL (8.5-10.1); Chloride 112 mmol/L (98-107); Creatinine, Serum 1.43 mg/dL (0.55-1.02); EST Glomerular Filtration Rate 38 mL/min (>60); Est Glom Filt Rate - Afr Amer 46 mL/min (>60); Estimated Creatinine Clearance 38.45 ml/min; Globulin 2.7 g/dL (2.2-4.2); Glucose 114 mg/dL (74-106); Potassium 4.8 mmol/L (3.5-5.1); Protein, Total 4.5 g/dL (6.4-8.2); Sodium Level 141 mmol/L (136-145)
[2021-12-14 08:27] LABS: Hematocrit 21.6 % (37-47); Hemoglobin 7.3 g/dL (12.0-15.0); Mean Corp Hgb Conc 33.8 g/dL (32-36); Mean Corpuscular Hgb 27.9 pg (27.0-32.0); Mean Corpuscular Volume 82.4 fL (81-99); Mean Platelet Vol. 10.8 fl (6.2-12.0); POSITIVE COUNT YES; POSITIVE DIFFERENTIAL YES; POSITIVE MORPHOLOGY YES; Platelet Count 83 K/mm3 (150-450); RBC Distribution Width CV 16.8 % (11.6-14.6); Red Blood Count 2.62 M/mm3 (4.2-5.4); White Blood Count 6.4 K/mm3 (4.4-11.0)
[2021-12-14 08:28] LABS: Differential Indicated MANUAL DIFF
[2021-12-14 08:53] LABS: Lymphocyte 8 % (19-41); Metamyelocyte 3 % (0-1); Monocyte 3 % (0-10); Myelocyte 1 % (0-0); Neutrophil-Band 2 % (0-5); Neutrophil-Segmented 83 % (47-70); Total Cells Counted 100 (MANUAL DIFF)
[2021-12-14 08:54] LABS: Anisocytosis 1+
[2021-12-14 08:55] LABS: Absolute Neutrophil Count 5.4 X10^3/uL (2.0-7.7); Neutrophil # 5.44 X10^3/uL (2.7-7.7); Platelet Estimate SLT DEC (ADEQ); Promyelocyte 1 % (0-0)
[2021-12-14 08:56] LABS: Absolute Lymphocyte Count 0.51 X10^3/uL (0.83-4.51); Lymphocyte # 0.51 X10^3/ul (0.83-4.51)
[2021-12-14 09:43] LABS: Pathologist Review Reviewed
[2021-12-14 09:44] LABS: Pathologist Review Reviewed
--- NOTE | 2021-12-14 09:57 | CASEMGMT ---
ISAÍAS called [facility] and spoke with Vilma. ISAÍAS let Vilma know that patient is not medically ready today. Vilma thanked ISAÍAS for the update. Tamara Estrada [employer]
--- NOTE | 2021-12-14 10:21 | PCM.CONS.R ---
Documented by User: CIARRA Mayer 12/14/21 10:55 Assessment & Plan Assessment/Plan (1) Acute kidney injury: (2) Severe malnutrition: (3) CKD (chronic kidney disease) stage 3, GFR 30-59 ml/min: PLAN: Plan We were consulted as patient was noted to have low urine output and elevated creatinine levels. Reviewing past creatinine trends, patient has had fluctuations in creatinine levels since at least 2011. Possible baseline creatinine has been ranging around 0.8 to 1.2 mg/dL. On admission, creatinine was 1.2 mg/dL. On admission patient was started on IV fluids for dehydration, her creatinine peaked at 1.88 mg/dL on December 06 and improved to 1.1mg/dL for few days; today creatinine is 1.43 mg/dL. Patient was on IVF up until yesterday. IVF stopped as patient was noted to have low urine output with edema to legs/arms. She did receive Lasix 40 mg IV 1 dose yesterday, urine output picked up. She received Lasix 40mg IV again today. Apparently patient had not been eating during this hospitalization and did have PEG tube placed Saturday. Albumin is 1.8. She has been started on intermittent tube feeding boluses 100mml 5x/day and not a continuous rate for fear of patient pulling on tubing and peg tube. Patient is NPO. Likely fluctuations in creatinine levels from hemodynamic changes. Her UA was negative for blood. BPs acceptable. 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 Though patient does have some edema this does appear to be third spacing. We will give diuretics cautiously and monitor for response/labs. Patient has Blanc. Patient had CT A/P showed mild right hydro and nonobstructing calculus. Renal US showed possible bladder mass, she was seen by urology, no intervention at this time. CXR from 12/13 no acute process. Further orders forthcoming as hospitalization evolves. HPI Consult Data Date of Consult: 12/14/21 HPI Narrative HPI Narrative: KULDEEP AGUIRRE, is a 71 F who presented to the emergency room with her on December 03 with complaints of confusion. Patient was admitted for acute dehydration, altered mental status changes (felt to be from polypharmacy), severe malnutrition and acute kidney injury. Hospitalization complicated by patient's depression, refusal to eat and therefore had PEG tube placed earlier this week. She was also found to have DVTs. Patient was noted to have low urine output, fluid overload and JACOB therefore we were consulted. Patient is alert to name. Able to follow commands. Most of information gathered from the chart and staff. Patient was noted to have low urine output yesterday, she received Lasix IV and urine output picked up. [facility] Medical History Allergic rhinitis Back pain due to injury Breast lump Chronic mental illness Chronic renal failure, stage 3a Cognitive dysfunction Depression Fall at home Fracture of hip, right, closed Goiter History of blood transfusion History of revision of total replacement of right hip joint History of uterine fibroid HTN (hypertension) Hypertension Hypothyroidism Hypothyroidism Instability of right hip joint Kidney stones Malnourished Neuropathy Obesity (BMI 30-39.9) Osteoarthritis Physical debility Post-menopausal Posterior tibial tendinitis, left leg 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 02/19/13 [History Last Taken 06/06/21] cholecalciferol (vitamin D3) 50 mcg (2,000 unit) tablet 2,000 unit PO DAILY SUPPLEMENT 01/22/17 [History Last Taken 06/06/21] loratadine-pseudoephedrine ER 10 mg-240 mg tablet,extended [id number] (Claritin-D 24 Hour) 1 tab PO PRN PRN Sinus Symptoms 01/22/17 [History Last Taken 06/05/21] metoprolol tartrate 50 mg tablet 25 mg PO DAILY BP 08/17/21 [History Last Taken Unknown] polysaccharide iron complex 150 mg iron capsule (Ferrex) 150 mg PO DAILY supplement 09/20/21 [History Last Taken Unknown] acetaminophen 500 mg tablet 1,000 mg PO Q8 PRN fever or pain #0 tabs 09/29/21 [Rx Last Taken Unknown] duloxetine 60 mg capsule,delayed release 60 mg PO DAILY #30 caps 09/29/21 [Rx Last Taken Unknown] levothyroxine 150 mcg tablet 150 mcg PO DAILY THYROID #30 tabs 09/29/21 [Rx Last Taken 06/06/21] tramadol 50 mg tablet 50 mg PO Q6H PRN pain 7 days #28 tabs 09/29/21 [Rx Last Taken Unknown] meclizine 25 mg tablet 25 mg PO Q8H PRN PRN Dizziness #20 tabs 11/26/21 [Rx Last Taken Unknown] Allergy/AdvReac Type Severity Reaction Status Date / Time amoxicillin trihydrate AdvReac Vomiting Verified 12/03/21 11:42 [From Augmentin] Anesthetics - Mary Type- AdvReac Other Verified 12/03/21 16:07 Parabens [anesthesia - anesthetics] hydrocodone AdvReac Vomiting Verified 12/03/21 11:42 Family History Mother Arthritis Cancer Sister Arthritis Diabetes Father Bleeding disorder Heart disease Hypertension Son Bleeding disorder Surgical History H/O lumpectomy H/O spinal fusion H/O thyroidectomy History of bilateral knee replacement History of right hip hemiarthroplasty History of spinal fusion History of tonsillectomy and adenoidectomy Social History (Updated 12/03/21 @ 16:18 by Matilda Bruce) household members: spouse Smoking Status: Never smoker alcohol intake: current alcohol intake frequency: a few times a month substance use type: does not use ROS ROS Narrative As in HPI and past medical history Physical Exam Narrative Const: Alert to name, no apparent distress HEENT: Oral mucosa dry, lips dry Cardio: S1, S2, RRR Respiratory: Lung sounds clear anteriorly and posterior Abdomen: Soft, nontender. PEG tube dressing clean, dry and intact Extremities: Third spacing edema bilateral lower legs and arms Blanc:. Yellow urine in bag Medical Records Data Medical Nutrition Assessment Dietitian: Malnutrition Criteria Met Start: 12/04/21 14:18 Freq: Status: Active Protocol: Document 12/13/21 15:38 (Rec: 12/13/21 15:38 [id number]) Nutrition Malnutrition Evidence of Malnutrition Exists Yes Malnutrition (severe): Chronic Evidenced By Suboptimal Energy Intake ( Severe),Weight Loss (Severe) Clinical Problem Chronic Disease or Condition Related Malnutrition Etiology severe, chronic malnutrition r /t inadequate energy intake d/ t depression Signs/Symptoms as evidenced by unintentional wt loss of 18.7kg/20% x 2 months; estimated PO intake meeting <50% of estimated energy needs x 2 weeks [employer]; estimated PO intake meeting < 75% of estimated energy needs x 6 months Status Active Problem Recommendation Dietitian Recommendations/Changes 1. Pt is to remain NPO per physician. 2. Concerns for refeeding- recommend close monitoring of electrolytes. 3. In discussion w/ Dr. Mclaughlin, will keep enteral nutrition at current rate: Jevity 1.5 5x /day with 40mL H2O flush before and after each bolus to provide 750 calories, [address] Mclaughlin increasing additional free fluid flushes to 200mL q 6 to provide 1580mL total fluid/day. 4. As pt tolerates, plan is to increase boluses by 70mL to 170mL 5x/day w/ 60mL H2O flush before and after each bolus. 5. Goal rate would be 240mL Jevity 1.5 bolus 5x/day w/ 100mL H2O flush before and after each bolus to provide 1800 calories, 76 g protein, and 1912mL total fluid/day. 6. Continue daily weights, trend closely. Lab / Micro Data Result Diagrams: 12/14/21 04:42 12/14/21 04:42 Labs: Laboratory Results - last 24 hr 12/12/21 08:23: Diff Path Review Reviewed 12/13/21 05:09: Diff Path Review Reviewed 12/13/21 06:39: POC Glucose 129 H 12/13/21 10:44: POC Glucose 114 H 12/13/21 17:19: POC Glucose 125 H 12/13/21 22:28: POC Glucose 123 H 12/14/21 04:42: Magnesium 1.7 12/14/21 04:42: WBC 6.4, RBC 2.62 L, Hgb 7.3 L, Hct 21.6 L, MCV 82.4, MCH 27.9, MCHC 33.8, RDW Std Deviation 50.0 H, RDW Coeff of Rita 16.8 H, Plt Count 83 L, MPV 10.8, Neut % (Auto) Not Reportable, Absolute Neuts (auto) 5.4, Absolute Lymphs (auto) 0.51 L, Total Counted 100, Neutrophils % (Manual) 83 H, Band Neutrophils % 2, Lymphocytes % (Manual) 8 L, Monocytes % (Manual) 3, Metamyelocytes % 3 H, Myelocytes % 1 H, Promyelocytes % 1 H, Diff Path Review May foll, Platelet Estimate SLT DEC, Anisocytosis 1+ 12/14/21 04:42: Sodium 141, Potassium 4.8, Chloride 112 H, Carbon Dioxide 25.0, Anion Gap 4 L, BUN 26 H, Creatinine 1.43 H, Estim Creat Clear Calc 38.45, Est GFR (MDRD) Af Amer 46 L, Est GFR (MDRD) Non-Af 38 L, BUN/Creatinine Ratio 18.2, Glucose 114 H, Calcium 8.1 L, Total Bilirubin 0.30, AST 14 L, ALT 13, Alkaline Phosphatase 66, Total Protein 4.5 L, Albumin 1.8 L, Globulin 2.7, Albumin/Globulin Ratio 0.7 L 12/14/21 06:22: POC Glucose 107 H Micro: Microbiology 12/11/21 Unknown Tissue - Other Gram Stain - Final 12/11/21 Unknown Tissue - Other Wound Culture - Final Staphylococcus aureus Staphylococcus epidermidis Lactobacillus plantarum 12/11/21 Unknown Tissue - Other Anaerobic Culture - Final No anaerobic bacteria isolated. Rhythm Strip Rhythm Strip: Sinus Tach Rate: 108 Ectopy: None Documented by User: Dr. Sharona Du MD 12/14/21 17:13 Assessment & Plan Assessment/Plan (1) Acute kidney injury: (2) Severe malnutrition: (3) CKD (chronic kidney disease) stage 3, GFR 30-59 ml/min: PLAN: Plan We were consulted as patient was noted to have low urine output and elevated creatinine levels. Reviewing past creatinine trends, patient has had fluctuations in creatinine levels since at least 2011. Possible baseline creatinine has been ranging around 0.8 to 1.2 mg/dL. On admission, creatinine was 1.2 mg/dL. On admission patient was started on IV fluids for dehydration, her creatinine peaked at 1.88 mg/dL on December 06 and improved to 1.1mg/dL for few days; today creatinine is 1.43 mg/dL. Patient was on IVF up until yesterday. IVF stopped as patient was noted to have low urine output with edema to legs/arms. She did receive Lasix 40 mg IV 1 dose yesterday, urine output picked up. She received Lasix 40mg IV again today. Apparently patient had not been eating during this hospitalization and did have PEG tube placed Saturday. Albumin is 1.8. She has been started on intermittent tube feeding boluses 100mml 5x/day and not a continuous rate for fear of patient pulling on tubing and peg tube. Patient is NPO. Likely fluctuations in creatinine levels from hemodynamic changes. Her UA was negative for blood. BPs acceptable. 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 Though patient does have some edema this does appear to be third spacing. We will give diuretics cautiously and monitor for response/labs. Patient has Blanc. Patient had CT A/P showed mild right hydro and nonobstructing calculus. Renal US showed possible bladder mass, she was seen by urology, no intervention at this time. CXR from 12/13 no acute process. Further orders forthcoming as hospitalization evolves. seen by me yesterday, could not chart due to computer issues. dw hospitalist today. hematology did not feel like its TTP. urine output is ok. lasix for now as needed HPI Consult Data Date of Consult: 12/14/21 [facility] Medical History Allergic rhinitis Back pain due to injury Breast lump Chronic mental illness Chronic renal failure, stage 3a Cognitive dysfunction Depression Fall at home Fracture of hip, right, closed Goiter History of blood transfusion History of revision of total replacement of right hip joint History of uterine fibroid HTN (hypertension) Hypertension Hypothyroidism Hypothyroidism Instability of right hip joint Kidney stones Malnourished Neuropathy Obesity (BMI 30-39.9) Osteoarthritis Physical debility Post-menopausal Posterior tibial tendinitis, left leg 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 02/19/13 [History Last Taken 06/06/21] cholecalciferol (vitamin D3) 50 mcg (2,000 unit) tablet 2,000 unit PO DAILY SUPPLEMENT 01/22/17 [History Last Taken 06/06/21] loratadine-pseudoephedrine ER 10 mg-240 mg tablet,extended [id number] (Claritin-D 24 Hour) 1 tab PO PRN PRN Sinus Symptoms 01/22/17 [History Last Taken 06/05/21] metoprolol tartrate 50 mg tablet 25 mg PO DAILY BP 08/17/21 [History Last Taken Unknown] polysaccharide iron complex 150 mg iron capsule (Ferrex) 150 mg PO DAILY supplement 09/20/21 [History Last Taken Unknown] acetaminophen 500 mg tablet 1,000 mg PO Q8 PRN fever or pain #0 tabs 09/29/21 [Rx Last Taken Unknown] duloxetine 60 mg capsule,delayed release 60 mg PO DAILY #30 caps 09/29/21 [Rx Last Taken Unknown] levothyroxine 150 mcg tablet 150 mcg PO DAILY THYROID #30 tabs 09/29/21 [Rx Last Taken 06/06/21] tramadol 50 mg tablet 50 mg PO Q6H PRN pain 7 days #28 tabs 09/29/21 [Rx Last Taken Unknown] meclizine 25 mg tablet 25 mg PO Q8H PRN PRN Dizziness #20 tabs 11/26/21 [Rx Last Taken Unknown] Allergy/AdvReac Type Severity Reaction Status Date / Time amoxicillin trihydrate AdvReac Vomiting Verified 12/03/21 11:42 [From Augmentin] Anesthetics - Mary Type- AdvReac Other Verified 12/03/21 16:07 Parabens [anesthesia - anesthetics] hydrocodone AdvReac Vomiting Verified 12/03/21 11:42 Family History Mother Arthritis Cancer Sister Arthritis Diabetes Father Bleeding disorder Heart disease Hypertension Son Bleeding disorder Surgical History H/O lumpectomy H/O spinal fusion H/O thyroidectomy History of bilateral knee replacement History of right hip hemiarthroplasty History of spinal fusion History of tonsillectomy and adenoidectomy Social History (Updated 12/03/21 @ 16:18 by Matilda Bruce) household members: spouse Smoking Status: Never smoker alcohol intake: current alcohol intake frequency: a few times a month substance use type: does not use Lab / Micro Data Result Diagrams: 12/14/21 04:42 12/14/21 04:42
[2021-12-14] MEDS: Iron Polysaccharide Complex 150 MG CAPSULE PO (10:52)
[2021-12-14] MEDS: Potassium Chloride Oral Soln 20 MEQ/15 ML UDC 40 MEQ GT ×2 (10:53→21:54)
[2021-12-14] MEDS: Hydroxychloroquine 200 MG Tablet PO ×2 (10:53→16:00)
[2021-12-14] MEDS: RisperiDONE 1 MG Tablet PO ×2 (10:53→21:54)
[2021-12-14] MEDS: Petrolatum 33% Tube 1 APPLIC TOPICAL ×2 (10:54→22:18)
[2021-12-14] MEDS: 0.9% Saline Lock 10 ML Syringe IV (10:54)
[2021-12-14] MEDS: Furosemide 40 MG/4 ML Vial IV (10:59)
[2021-12-14 12:00] LABS: Bedside Glucose 103 mg/dL (74-106)
--- NOTE | 2021-12-14 14:28 | PN.HOSP_ITS ---
Subjective Subjective Follow-up for generalized edema/anasarca. Patient also has Thrombocytopenia. Patient had high blood pressure last night/access specialist. Most recent blood pressure is normal 112/73. Patient had 1400 mL urine output yesterday. Objective Data Objective Data Vital Signs: Vital Signs Temp Pulse Resp BP Pulse Ox O2 Del Method 97.4 F L 88 11 L 112/73 96 Room Air 12/14/21 10:05 12/14/21 12:08 12/14/21 10:05 12/14/21 10:05 12/14/21 12:44 12/14/21 10:05 Oxygen Delivery Method Room Air Weight: 205 lb 0.478 oz Body Mass Index (BMI) 29.0 Intake & Output: Intake and Output for Last 24 Hours 12/12/21 12/13/21 12/14/21 23:59 23:59 23:59 Intake Total 1839.66 / 1839.66 2325.83 / 2325.83 180 / 180 Output Total 350 / 350 1395 / 1695 650 / 650 Balance 1489.66 / 1489.66 930.83 / 630.83 -470 / -470 Medical Nutrition Assessment Dietitian: Malnutrition Criteria Met Start: 12/04/21 14:18 Freq: Status: Active Protocol: Document 12/14/21 11:35 AG (Rec: 12/14/21 11:35 AG [id number]) Nutrition Malnutrition Evidence of Malnutrition Exists Yes Malnutrition (severe): Chronic Evidenced By Suboptimal Energy Intake ( Severe),Weight Loss (Severe) Clinical Problem Chronic Disease or Condition Related Malnutrition Etiology severe, chronic malnutrition r /t inadequate energy intake d/ t depression Signs/Symptoms as evidenced by unintentional wt loss of 18.7kg/20% x 2 months; estimated PO intake meeting <50% of estimated energy needs x 2 weeks [employer]; estimated PO intake meeting < 75% of estimated energy needs x 6 months Status Active Problem Recommendation Dietitian Recommendations/Changes 1. Pt is to remain NPO per physician. 2. Concerns for refeeding- recommend close monitoring of electrolytes. 3. In discussion w/ Dr. Mclaughlin, will increase enteral nutrition today: Jevity 1.5 170mL 5x/day w/ 60mL H2O flush before and after each bolus. Per Dr. Mclaughlin, continue 200mL H2O flush q 6 hours to provide 2046mL total fluid/day. 4. As pt tolerates, plan is to increase boluses to goal rate of 240mL Jevity 1.5 bolus 5x/ day w/100mL H2O flush before and after each bolus to provide 1800 calories, 76 g protein, and 1912mL total fluid/day. 5. Continue daily weights, trend closely. Lab / Micro Data Result Diagrams: 12/14/21 04:42 12/14/21 04:42 Labs: Laboratory Results - last 24 hr 12/12/21 08:23: Diff Path Review Reviewed 12/13/21 05:09: Diff Path Review Reviewed 12/13/21 17:19: POC Glucose 125 H 12/13/21 22:28: POC Glucose 123 H 12/14/21 04:42: Magnesium 1.7 12/14/21 04:42: WBC 6.4, RBC 2.62 L, Hgb 7.3 L, Hct 21.6 L, MCV 82.4, MCH 27.9, MCHC 33.8, RDW Std Deviation 50.0 H, RDW Coeff of Rita 16.8 H, Plt Count 83 L, MPV 10.8, Neut % (Auto) Not Reportable, Absolute Neuts (auto) 5.4, Absolute Lymphs (auto) 0.51 L, Total Counted 100, Neutrophils % (Manual) 83 H, Band Neutrophils % 2, Lymphocytes % (Manual) 8 L, Monocytes % (Manual) 3, [place] myelocytes % 3 H, Myelocytes % 1 H, Promyelocytes % 1 H, Diff Path Review May foll, Platelet Estimate SLT DEC, Anisocytosis 1+ 12/14/21 04:42: Sodium 141, Potassium 4.8, Chloride 112 H, Carbon Dioxide 25.0, Anion Gap 4 L, BUN 26 H, Creatinine 1.43 H, Estim Creat Clear Calc 38.45, Est GFR (MDRD) Af Amer 46 L, Est GFR (MDRD) Non-Af 38 L, BUN/Creatinine Ratio 18.2, Glucose 114 H, Calcium 8.1 L, Total Bilirubin 0.30, AST 14 L, ALT 13, Alkaline Phosphatase 66, Total Protein 4.5 L, Albumin 1.8 L, Globulin 2.7, Albumin/Globulin Ratio 0.7 L 12/14/21 06:22: POC Glucose 107 H 12/14/21 11:22: POC Glucose 103 Micro: Microbiology 12/11/21 Unknown Tissue - Other Gram Stain - Final 12/11/21 Unknown Tissue - Other Wound Culture - Final Staphylococcus aureus Staphylococcus epidermidis Lactobacillus plantarum 12/11/21 Unknown Tissue - Other Anaerobic Culture - Final No anaerobic bacteria isolated. 12/07/21 16:55 Stool Stool Occult Blood (DONNELL) - Final Occult Blood Positive 12/03/21 14:35 Nasal Secretion SARS-CoV-2 Antigen (Rapid) - Final Rhythm Strip Rhythm Strip: Sinus Tach Rate: 108 Ectopy: None Physical Exam Narrative Seen and examined. General: Awake, lethargic, weak, loss of appetite, no change in general condition HEENT: Atraumatic, PERRLA, EOMI, Normocephalic Oral: Oral mucosa moist. No Gingival or Mucosal Lesions/ Ulcerations Neck: Supple, No JVD, Negative Carotid Bruits Lungs: Air entry diminished in bilateral lung bases. No crepitation/rhonchi Cardiovascular: Regular rate, Regular Rhythm, Normal S1, Normal S2, systolic murmur LLSB Abdomen: PEG tube present. Tube feeding increased. Bowel Sounds Present, Soft, Non Tender, Non-Distended : Urine clear no renal angle tenderness. No suprapubic tenderness. Extremities: Bilateral nonpitting lower leg edema, Capillary Refill Less than 3 Seconds Skin: Small superficial sore/breach of skin/ulcer lower leg Musculoskeletal: ROM severely restricted. No active movement. Cannot lift her legs. Left leg bigger than right leg. ROM restricted at knee and hip joints. Neurological: Cranial nerves II-XII grossly intact, DTR 2/4, muscle strength 3/5 at major joints of lower extremity Psych/Mental Status: Flat affect. Assessment & Plan Assessment/Plan (1) Acute kidney injury: (2) Toxic metabolic encephalopathy: (3) Severe malnutrition: (4) Thrombocytopenia: PLAN: Plan This 71-year-old female was admitted with altered mental status, delusion; was talking to her mother who long time ago. Patient behavior was not appropriate/derealization. Patient does not have appetite and is very depressed. Toxic/metabolic encephalopathy, may be related to polypharmacy. Patient on meclizine. Acute encephalopathy has resolved. B12 low at 222, on B12 oral replacement -TSH within normal limits 12/13: Patient is still mumbles few words, opens eyes, looks depressed but no meaningful conversation. On tube feed. JACOB secondary to severe dehydration, prerenal/obstructive: -Serum creatinine is 1.2-->0.3 above baseline on presentation -Serum is now able lysed and trending back down and now 1.66 -Continue IV fluids with LR 75 cc/h until patient is able to take p.o. adequately to maintain appropriate hydration -Renal ultrasound showed a possible mass posterior to the bladder versus hematoma--> Blanc placed and significant sediment and what looks like to be blood--> CT done with no comment with regards to the above--> Urology has seen the patient and will follow as an outpatient with no urgent needs for intervention at this time -FeNa is 6.9% on 12/06/2021 most consistent with obstructive -Blanc placed and serum creatinine is trending down at this point -Avoid nephrotoxins. Serum creatinine 1.39, BUN 42. -Would leave Blanc in at discharge 12/09: Creatinine getting better. 1.27. 12/10, creatinine 1.19. Hypomagnesemia, magnesium getting replaced. Mild hypokalemia, IV 20 M EQ KCl replaced. 12/12: Patient creatinine Is around 50 mill per minute. Potassium replacement ordered.Monitor electrolytes. 12/13: Patient had anuria, urine output 30 mL and Ringer lactate was restarted yesterday. Patient also has diffuse edema of upper and lower extremities. IV fluid was stopped and Lasix 20 mg IV was given patient had 350 mill urine output as per nursing staff. Surgeon Chief was consulted. After discussion with ne phrologist it was made clear that TTP was ruled out at the time of admission. 12/14: Increasing creatinine from 1.3-1.43. BUN 26. Discussed with the filer and sander continue Lasix 40 mg IV daily. Patient also has flores change in BP prep related to fluid shift. Thrombocytopenia: Certain differential diagnosis are HIT. Pretest probability, of 4 T score is 4 points intermediate probability 14%. Peripheral smear pending. MPV normal. -Heparin-induced platelet antibody pending -Heparin drip discontinued -Start bivalirudin drip -We will convert to oral agents once PEG tube is placed but need IV with rapid conversion until that point time -Hematology/oncology consult pending--> Case was discussed with Dr. Franco -PEG tube currently on hold due to severe thrombocytopenia 12/09: Platelet count still low, no significant difference. 12/10: Platelet is still low 71,000. Discussed with the surgeon. I agreed for platelet transfusion an hour before PEG tube procedure. Patient on bivalirudin drip 12/11: Platelet count 70,000 but that was before transfusion. Patient had 1 unit of platelet transfusion and then PEG tube by surgeon. 12/12: Platelet antibodies negative. It is unlikely patient has HIT. Discussed with cartridge filler, Dr Rueda. BUN drip stopped and start on rivaroxaban 20 mg after 1 hour stopping Coumadin 2. Continue for 3 months and then follow-up in hematology clinic with Dr Rueda and he will reevaluate whether to continue further. 12/13: In view of severe anemia, thrombocytopenia, altered mental status and anuria, the suspicion of TTP was raised by filer and sander after discussion. I told him that cartridge filler was consulted to rule out TTP at the time of admission and was ruled out as platelet count was normal at that time and it went low after starting IV heparin drip filer and sander. At that time cartridge filler reviewed the peripheral smear and ruled out TTP. I discussed with pathologist Dr. Arias and reviewed peripheral smear for last 2 days and states he received RBC fragment but not abundance. After discussion with cartridge filler, few fragments may be from hemolysis that has to be diffuse to to meet the diagnosis of TTP. LDH was also not more than 2 or 3 times for diagnosis of TTP. Normocytic normochromic acute anemia with history of anemia of chronic disease/inflammatory anemia -Hemoglobin low 7.2 g, steadily getting low from baseline 11 to 12 g. Stool for occult blood positive. Transfuse hemoglobin less than 7 g. 12/10: Hemoglobin 7.5. WBC count 2.8 thousand. 12/11: Hemoglobin similar 7.8 with a low WBC count 3.3 thousand. 12/12: Patient hemoglobin is still above 7, platelet count 77,000. I think patient will able to tolerate Xarelto 20 mg daily but not 15 mg twice daily loading dose. Discussed with cartridge filler 12/13: Hemoglobin 7.5. Abnormal EKG -Current EKG with new T wave inversions in the inferior lateral leads -Patient with no active chest pain and symptoms are fairly nonspecific -Cardiac enzymes are normal x3 -Echocardiogram was unimpressive showing an EF of 55% with stage I diastolic dysfunction and a pulmonary artery systolic pressure of 27 mmHg Debility -Patient with 2 recent hip surgeries for replacement then revision secondary to recurrent dislocations -PT/OT following-participation is quite limited -May need placement at discharge Left lower extremity DVT-acute Patient was on bivalirudin. 12/14: Platelet count is 83,000. Patient tolerating well Xarelto. Hemoglobin 7.3 2 mm right ureteral calculus with mild right hydronephrosis -Continue Flomax -Continue IV fluids -Urology has evaluated the patient and no need for any intervention Dry skin -Eucerin cream twice daily to lower extremities History of rheumatoid arthritis -Continue home hydroxychloroquine -Hold leflunomide until platelet count improvement -Continue home as needed Ultram Hypertension -Hold metoprolol with intermittent low blood pressures -Continue to monitor Severe depression -Continue duloxetine -Risperdal added -Anticipate this is significantly playing into her above presentation Severe malnutrition -Supplements given -Dietitian following -Continue Marinol -CT was unremarkable for any abnormalities that would suggest reason for decreased p.o. intake -Patient had PEG tube. EGD showed LA grade D esophagitis which was biopsied. Biopsy shows 1+ MSSA, 1+ MSSE and lactobacillus. Discussed with ID Dr. Salazar and he agreed for 7 days of Keflex through PEG tube. On Xarelto -SCDs CODE STATUS -Full code as per discussion with on admission Total time of the visit including total time spent in counseling or coordination of care, (more than 50% of the total time, spent in obtaining medical information from nurses and other ancillary care providers,explaining to the patient about labs, imaging, diagnosis and management of active complex medical conditions), discussion with filer and sander and cartridge filler, ID, review of labs and imaging is 46 minutes Microbiology Past 72 Hours 12/11/21 Unknown Tissue - Other Gram Stain - Final 12/11/21 Unknown Tissue - Other Wound Culture - Final Staphylococcus aureus Staphylococcus epidermidis Lactobacillus plantarum 12/11/21 Unknown Tissue - Other Anaerobic Culture - Final No anaerobic bacteria isolated. Laboratory Results 12/12/21 08:23: Diff Path Review Reviewed 12/13/21 05:09: Diff Path Review Reviewed 12/13/21 17:19: POC Glucose 125 H 12/13/21 22:28: POC Glucose 123 H 12/14/21 04:42: Magnesium 1.7 12/14/21 04:42: WBC 6.4, RBC 2.62 L, Hgb 7.3 L, Hct 21.6 L, MCV 82.4, MCH 27.9, MCHC 33.8, RDW Std Deviation 50.0 H, RDW Coeff of Rita 16.8 H, Plt Count 83 L, MPV 10.8, Neut % (Auto) Not Reportable, Absolute Neuts (auto) 5.4, Absolute Lymphs (auto) 0.51 L, Total Counted 100, Neutrophils % (Manual) 83 H, Band Neutrophils % 2, Lymphocytes % (Manual) 8 L, Monocytes % (Manual) 3, Metamyelocytes % 3 H, Myelocytes % 1 H, Promyelocytes % 1 H, Diff Path Review June foll, Platelet Estimate SLT DEC, Anisocytosis 1+ 12/14/21 04:42: Sodium 141, Potassium 4.8, Chloride 112 H, Carbon Dioxide 25.0, Anion Gap 4 L, BUN 26 H, Creatinine 1.43 H, Estim Creat Clear Calc 38.45, Est G FR (MDRD) Af Amer 46 L, Est GFR (MDRD) Non-Af 38 L, BUN/Creatinine Ratio 18.2, Glucose 114 H, Calcium 8.1 L, Total Bilirubin 0.30, AST 14 L, ALT 13, Alkaline Phosphatase 66, Total Protein 4.5 L, Albumin 1.8 L, Globulin 2.7, A lbumin/Globulin Ratio 0.7 L 12/14/21 06:22: POC Glucose 107 H 12/14/21 11:22: POC Glucose 103 Charges/Coding Visit Charges Inpatient E&M: 82616 Subs Hosp L3
[2021-12-14] MEDS: Tamsulosin HCl 0.4 MG Capsule PO (16:00)
[2021-12-14] MEDS: Rivaroxaban 20 MG Tablet GT (16:01)
[2021-12-14] MEDS: Jevity 1.5. 1,000 ML Bottle 170 ML GT ×3 (16:02→21:53)
[2021-12-14] MEDS: Cephalexin 500 MG Capsule GT (16:07)
[2021-12-14] MEDS: Dronabinol 2.5 MG Capsule PO (16:07)
[2021-12-14 17:00] LABS: Bedside Glucose 99 mg/dL (74-106)
[2021-12-14 22:00] LABS: Bedside Glucose 112 mg/dL (74-106)
[2021-12-15] VITALS (10 sets, daily range): BP systolic 95–123; BP diastolic 57–74; PULSE 86–100; RESP 15–20; TEMP 36.1–36.6; O2SAT 97–100
[2021-12-15] MEDS: Cephalexin 500 MG Capsule GT ×3 (01:06→22:42)
[2021-12-15] MEDS: Jevity 1.5. 1,000 ML Bottle 170 ML GT ×4 (01:14→14:47)
[2021-12-15] MEDS: Levothyroxine 150 MCG Tablet PO (05:40)
[2021-12-15] MEDS: Dronabinol 2.5 MG Capsule PO ×2 (05:43→18:23)
[2021-12-15 05:57] LABS: Hematocrit 21.3 % (37-47); Hemoglobin 7.2 g/dL (12.0-15.0); Mean Corp Hgb Conc 33.8 g/dL (32-36); Mean Corpuscular Hgb 27.7 pg (27.0-32.0); Mean Corpuscular Volume 81.9 fL (81-99); Mean Platelet Vol. 9.9 fl (6.2-12.0); POSITIVE COUNT YES; POSITIVE DIFFERENTIAL YES; POSITIVE MORPHOLOGY YES; Platelet Count 80 K/mm3 (150-450); RBC Distribution Width CV 16.9 % (11.6-14.6); RBC Distribution Width SD 49.7 fl (35.1-43.9); White Blood Count 6.5 K/mm3 (4.4-11.0)
[2021-12-15 06:02] LABS: Differential Indicated MANUAL DIFF
[2021-12-15] MEDS: Menthol/Lanolin/Calamine/Znox 113 GM Tube 1 APPLIC TOPICAL ×3 (06:03→22:54)
[2021-12-15 06:20] LABS: Anisocytosis 1+
[2021-12-15 06:21] LABS: Platelet Estimate MOD DEC (ADEQ)
[2021-12-15 06:23] LABS: Absolute Lymphocyte Count 0.52 X10^3/uL (0.83-4.51); Metamyelocyte 1 % (0-1); Myelocyte 10 % (0-0); Neutrophil-Band 4 % (0-5); Neutrophil-Segmented 73 % (47-70); Promyelocyte 1 % (0-0); Total Cells Counted 100 (MANUAL DIFF)
[2021-12-15 06:24] LABS: Atypical Lymphocyte 1+ %; Eosinophil 1 % (0-5); Lymphocyte 8 % (19-41); Monocyte 2 % (0-10)
[2021-12-15 06:26] LABS: Bedside Glucose 94 mg/dL (74-106)
[2021-12-15 06:31] LABS: Anion Gap 4 (5-15); BUN 25 mg/dL (7-18); BUN/Creat Ratio 17.1 RATIO (10-20); Calcium,Total 8.2 mg/dL (8.5-10.1); Chloride 109 mmol/L (98-107); Creatinine, Serum 1.46 mg/dL (0.55-1.02); EST Glomerular Filtration Rate 37 mL/min (>60); Est Glom Filt Rate - Afr Amer 45 mL/min (>60); Estimated Creatinine Clearance 37.66 ml/min; Glucose 97 mg/dL (74-106); Magnesium 1.9 mg/dL (1.6-2.6); Potassium 5.5 mmol/L (3.5-5.1); Sodium Level 139 mmol/L (136-145)
[2021-12-15] MEDS: 0.9% Saline Lock 10 ML Syringe IV ×2 (09:34→09:36)
[2021-12-15] MEDS: Iron Polysaccharide Complex 150 MG CAPSULE PO (09:35)
[2021-12-15] MEDS: Hydroxychloroquine 200 MG Tablet PO ×2 (09:35→18:19)
[2021-12-15] MEDS: Petrolatum 33% Tube 1 APPLIC TOPICAL ×2 (09:35→22:54)
[2021-12-15] MEDS: RisperiDONE 1 MG Tablet PO ×2 (09:36→22:42)
[2021-12-15] MEDS: Furosemide 40 MG/4 ML Vial IV (09:36)
--- NOTE | 2021-12-15 11:01 | CM.ED ---
ISAÍAS Note Tam[facility] PCU SW advised that patient is not medically ready and that her potassium went up and she is not at gal for her tube feed. ISAÍAS called Edgar at [facility] and explained to her that patient is not medically ready. ISAÍAS asked to speak to Naomi, intake director, as Naomi had left voice mail message for thius content writer regarding patient. Naomi was updated that patient is not medically ready as her potassium went up and she is not at gal for tube feed. Naomi said that at discharge, when patient comes to [facility], they will need labs and EKG for that day and 3 days of jevity 1. 5 and a couple of days of gauze for patient's dressing. Roxanna FLORENTINO
--- NOTE | 2021-12-15 11:42 | PN.RENAL_ITS ---
Subjective Subjective Not very responsive She does withdraw to pain Objective Data Objective Data Vital Signs: Vital Signs Temp Pulse Resp BP Pulse Ox O2 Del Method 98 F 94 17 123/74 H 100 Room Air 12/15/21 09:37 12/15/21 09:37 12/15/21 09:37 12/15/21 09:37 12/15/21 09:37 12/15/21 10:00 Oxygen Delivery Method Room Air Weight: 91.7 kg Body Mass Index (BMI) 29.0 Intake & Output: Intake and Output for Last 24 Hours 12/13/21 12/14/21 12/15/21 23:59 23:59 23:59 Intake Total 2325.83 / 2325.83 1280 / 1280 785 / 785 Output Total 1395 / 1695 2375 / 2775 850 / 850 Balance 930.83 / 630.83 -1095 / -1495 -65 / -65 Medical Nutrition Assessment Dietitian: Malnutrition Criteria Met Start: 12/04/21 14:18 Freq: Status: Active Protocol: Document 12/14/21 11:35 (Rec: 12/14/21 11:35 [id number]) Nutrition Malnutrition Evidence of Malnutrition Exists Yes Malnutrition (severe): Chronic Evidenced By Suboptimal Energy Intake ( Severe),Weight Loss (Severe) Clinical Problem Chronic Disease or Condition Related Malnutrition Etiology severe, chronic malnutrition r /t inadequate energy intake d/ t depression Signs/Symptoms as evidenced by unintentional wt loss of 18.7kg/20% x 2 months; estimated PO intake meeting <50% of estimated energy needs x 2 weeks [employer]; estimated PO intake meeting < 75% of estimated energy needs x 6 months Status Active Problem Recommendation Dietitian Recommendations/Changes 1. Pt is to remain NPO per physician. 2. Concerns for refeeding- recommend close monitoring of electrolytes. 3. In discussion w/ Dr. Mclaughlin, will increase enteral nutrition today: Jevity 1.5 170mL 5x/day w/ 60mL H2O flush before and after each bolus. Per Dr. Mclaughlin, continue 200mL H2O flush q 6 hours to provide 2046mL total fluid/day. 4. As pt tolerates, plan is to increase boluses to goal rate of 240mL Jevity 1.5 bolus 5x/ day w/100mL H2O flush before and after each bolus to provide 1800 calories, 76 g protein, and 1912mL total fluid/day. 5. Continue daily weights, trend closely. Lab / Micro Data Result Diagrams: 12/15/21 05:27 12/15/21 05:27 Labs: Laboratory Results - last 24 hr 12/14/21 11:22: POC Glucose 103 12/14/21 16:26: POC Glucose 99 12/14/21 21:42: POC Glucose 112 H 12/15/21 05:27: Sodium 139, Potassium 5.5 H, Chloride 109 H, Carbon Dioxide 26.0, Anion Gap 4 L, BUN 25 H, Creatinine 1.46 H, Estim Creat Clear Calc 37.66, Est GFR (MDRD) Af Amer 45 L, Est GFR (MDRD) Non-Af 37 L, BUN/Creatinine Ratio 17.1, Glucose 97, Calcium 8.2 L, Magnesium 1.9 12/15/21 05:27: WBC 6.5, RBC 2.60 L, Hgb 7.2 L, Hct 21.3 L, MCV 81.9, MCH 27.7, MCHC 33.8, RDW Std Deviation 49.7 H, RDW Coeff of Rita 16.9 H, Plt Count 80 L, MPV 9.9, Neut % (Auto) Not Reportable, Absolute Neuts (auto) 5.0, Absolute Lymphs (auto) 0.52 L, Total Counted 100, Neutrophils % (Manual) 73 H, Band Neutrophils % 4, Lymphocytes % (Manual) 8 L, Monocytes % (Manual) 2, Eosinophils % (Manual) 1, Metamyelocytes % 1, Myelocytes % 10 H, Promyelocytes % 1 H, Diff Path Review May foll, Atypical Lymphocytes 1+, Platelet Estimate MOD DEC, Anisocytosis 1+ 12/15/21 05:55: POC Glucose 94 Micro: Microbiology 12/11/21 Unknown Tissue - Other Gram Stain - Final 12/11/21 Unknown Tissue - Other Wound Culture - Final Staphylococcus aureus Staphylococcus epidermidis Lactobacillus plantarum 12/11/21 Unknown Tissue - Other Anaerobic Culture - Final No anaerobic bacteria isolated. 12/07/21 16:55 Stool Stool Occult Blood (DONNELL) - Final Occult Blood Positive 12/03/21 14:35 Nasal Secretion SARS-CoV-2 Antigen (Rapid) - Final Rhythm Strip Rhythm Strip: Sinus Tach Rate: 108 Ectopy: None Physical Exam Narrative no obvious distress no pallor no icterus no JVD s1s2 no murmurs lungs clear abdomen soft no organomegaly no edema no cyanosis tavarez + Assessment & Plan Assessment/Plan (1) CKD (chronic kidney disease) stage 3, GFR 30-59 ml/min: (2) Acute kidney injury: PLAN: Creatinine is similar to yesterday. Urine output is okay. Tolerating IV Lasix okay so far. Renal ultrasound showed possible mass around the bladder but the follow-up CT scan abdomen did not show anything abnormal. It seems she has mild right-sided hydronephrosis, no intervention planned for now. Typically unilateral hydronephrosis does not cause acute renal failure. Urine analysis does show some cells but this is a Tavarez sample. No further work-up needed since creatinine is stable. Initially there was some concern for TTP but she was evaluated by hematology and this diagnosis was unlikely Continue IV Lasix for now Hyperkalemia today. ? Etiology. Bicarbonate is normal. Glucose values are acceptable. Will give a dose of Kayexalate today
[2021-12-15 12:34] LABS: Pathologist Review Reviewed
[2021-12-15 12:40] LABS: Pathologist Review Reviewed
[2021-12-15] MEDS: Sodium Polystyrene Sulfonate 15 GM/60 ML UDC PO (12:57)
[2021-12-15 13:25] LABS: Bedside Glucose 116 mg/dL (74-106)
--- NOTE | 2021-12-15 14:08 | PCM.PN.HOSP ---
Subjective Subjective Follow-up for failure to thrive, anemia, thrombocytopenia, generalized edema. Objective Data Objective Data Vital Signs: Vital Signs Temp Pulse Resp BP Pulse Ox O2 Del Method 98 F 94 17 123/74 H 99 Room Air 12/15/21 09:37 12/15/21 11:37 12/15/21 09:37 12/15/21 09:37 12/15/21 12:01 12/15/21 10:00 Oxygen Delivery Method Room Air Weight: 202 lb 2.622 oz Body Mass Index (BMI) 29.0 Intake & Output: Intake and Output for Last 24 Hours 12/13/21 12/14/21 12/15/21 23:59 23:59 23:59 Intake Total 2325.83 / 2325.83 1280 / 1280 865 / 865 Output Total 1395 / 1695 2375 / 2775 1600 / 1600 Balance 930.83 / 630.83 -1095 / -1495 -735 / -735 Medical Nutrition Assessment Dietitian: Malnutrition Criteria Met Start: 12/04/21 14:18 Freq: Status: Active Protocol: Document 12/14/21 11:35 (Rec: 12/14/21 11:35 [id number]) Nutrition Malnutrition Evidence of Malnutrition Exists Yes Malnutrition (severe): Chronic Evidenced By Suboptimal Energy Intake ( Severe),Weight Loss (Severe) Clinical Problem Chronic Disease or Condition Related Malnutrition Etiology severe, chronic malnutrition r /t inadequate energy intake d/ t depression Signs/Symptoms as evidenced by unintentional wt loss of 18.7kg/20% x 2 months; estimated PO intake meeting <50% of estimated energy needs x 2 weeks [employer]ICAL [employer]; estimated PO intake meeting < 75% of estimated energy needs x 6 months Status Active Problem Recommendation Dietitian Recommendations/Changes 1. Pt is to remain NPO per physician. 2. Concerns for refeeding- recommend close monitoring of electrolytes. 3. In discussion w/ Dr. Mclaughlin, will increase enteral nutrition today: Jevity 1.5 170mL 5x/day w/ 60mL H2O flush before and after each bolus. Per Dr. Mclaughlin, continue 200mL H2O flush q 6 hours to provide 2046mL total fluid/day. 4. As pt tolerates, plan is to increase boluses to goal rate of 240mL Jevity 1.5 bolus 5x/ day w/100mL H2O flush before and after each bolus to provide 1800 calories, 76 g protein, and 1912mL total fluid/day. 5. Continue daily weights, trend closely. Lab / Micro Data Result Diagrams: 12/15/21 05:27 12/15/21 05:27 Labs: Laboratory Results - last 24 hr 12/14/21 04:42: Diff Path Review Reviewed 12/14/21 16:26: POC Glucose 99 12/14/21 21:42: POC Glucose 112 H 12/15/21 05:27: Sodium 139, Potassium 5.5 H, Chloride 109 H, Carbon Dioxide 26.0, Anion Gap 4 L, BUN 25 H, Creatinine 1.46 H, Estim Creat Clear Calc 37.66, Est GFR (MDRD) Af Amer 45 L, Est GFR (MDRD) Non-Af 37 L, BUN/Creatinine Ratio 17.1, Glucose 97, Calcium 8.2 L, Magnesium 1.9 12/15/21 05:27: WBC 6.5, RBC 2.60 L, Hgb 7.2 L, Hct 21.3 L, MCV 81.9, MCH 27.7, MCHC 33.8, RDW Std Deviation 49.7 H, RDW Coeff of Rita 16.9 H, Plt Count 80 L, MPV 9.9, Neut % (Auto) Not Reportable, Absolute Neuts (auto) 5.0, Absolute Lymphs (auto) 0.52 L, Total Counted 100, Neutrophils % (Manual) 73 H, Band Neutrophils % 4, Lymphocytes % (Manual) 8 L, Monocytes % (Manual) 2, Eosinophils % (Manual) 1, Metamyelocytes % 1, Myelocytes % 10 H, Promyelocytes % 1 H, Diff Path Review Reviewed, Atypical Lymphocytes 1+, Platelet Estimate MOD DEC, Anisocytosis 1+ 12/15/21 05:55: POC Glucose 94 12/15/21 13:01: POC Glucose 116 H Micro: Microbiology 12/11/21 Unknown Tissue - Other Gram Stain - Final 12/11/21 Unknown Tissue - Other Wound Culture - Final Staphylococcus aureus Staphylococcus epidermidis Lactobacillus plantarum 12/11/21 Unknown Tissue - Other Anaerobic Culture - Final No anaerobic bacteria isolated. 12/07/21 16:55 Stool Stool Occult Blood (DONNELL) - Final Occult Blood Positive 12/03/21 14:35 Nasal Secretion SARS-CoV-2 Antigen (Rapid) - Final Rhythm Strip Rhythm Strip: Sinus Tach Rate: 108 Ectopy: None Physical Exam Narrative Seen and examined. General: Awake, drowsy lethargic, loss of appetite, no change in general condition HEENT: Atraumatic, PERRLA, EOMI, Normocephalic Oral: Oral mucosa moist. No Gingival or Mucosal Lesions/ Ulcerations Neck: Supple, No JVD, Negative Carotid Bruits Lungs: Air entry diminished in bilateral lung bases. No crepitation/rhonchi Cardiovascular: Regular rate, Regular Rhythm, Normal S1, Normal S2, systolic murmur LLSB Abdomen: PEG tube present. Tube feeding increased. Bowel Sounds Present, Soft, Non Tender, Non-Distended : Urine clear no renal angle tenderness. No suprapubic tenderness. Extremities: Bilateral nonpitting lower leg edema, Capillary Refill Less than 3 Seconds Skin: Small superficial sore/seepage from bilateral feet. Right foot has chronic scar. Musculoskeletal: ROM severely restricted. No active movement. Cannot lift her legs. Left leg bigger than right leg. ROM restricted at knee and hip joints. Neurological: Cranial nerves II-XII grossly intact, DTR 2/4, muscle strength 3/5 at major joints of lower extremity Psych/Mental Status: Flat affect. Assessment & Plan Assessment/Plan (1) Acute kidney injury: (2) Toxic metabolic encephalopathy: (3) Severe malnutrition: (4) Thrombocytopenia: PLAN: Plan This 71-year-old female was admitted with altered mental status, delusion; was talking to her mother who long time ago. Patient behavior was not appropriate/derealization. Patient does not have appetite and is very depressed. Toxic/metabolic encephalopathy, may be related to polypharmacy. Patient on meclizine. Acute encephalopathy has resolved. B12 low at 222, on B12 oral replacement -TSH within normal limits 12/13: Patient is still mumbles few words, opens eyes, looks depressed but no meaningful conversation. On tube feed. JACOB secondary to severe dehydration, prerenal/obstructive: -Serum creatinine is 1.2-->0.3 above baseline on presentation -Serum is now able lysed and trending back down and now 1.66 -Continue IV fluids with LR 75 cc/h until patient is able to take p.o. adequately to maintain appropriate hydration -Renal ultrasound showed a possible mass posterior to the bladder versus hematoma--> Blanc placed and significant sediment and what looks like to be blood--> CT done with no comment with regards to the above--> Urology has seen the patient and will follow as an outpatient with no urgent needs for intervention at this time -FeNa is 6.9% on 12/06/2021 most consistent with obstructive -Blanc placed and serum creatinine is trending down at this point -Avoid nephrotoxins. Serum creatinine 1.39, BUN 42. -Would leave Blanc in at discharge 12/09: Creatinine getting better. 1.27. 12/10, creatinine 1.19. Hypomagnesemia, magnesium getting replaced. Mild hypokalemia, IV 20 M EQ KCl replaced. 12/12: Patient creatinine Is around 50 mill per minute. Potassium replacement ordered.Monitor electrolytes. 12/13: Patient had anuria, urine output 30 mL and Ringer lactate was restarted yesterday. Patient also has diffuse edema of upper and lower extremities. IV fluid was stopped and Lasix 20 mg IV was given patient had 350 mill urine output as per nursing staff. Director Of Operations Home Health was consulted. After discussion with decal cutter it was made clear that TTP was ruled out at the time of admission. 12/14: Increasing creatinine from 1.3-1.43. BUN 26. Discussed with the decal cutter continue Lasix 40 mg IV daily. Patient also has flores change in BP prep related to fluid shift. 12/15: Acute hyperkalemia, K5.5, potassium supplement discontinued. Continue diuretic. Patient BUN/creatinine 25/1.46. Thrombocytopenia: Certain differential diagnosis are HIT. Pretest probability, of 4 T score is 4 points intermediate probability 14%. Peripheral smear pending. MPV normal. -Heparin-induced platelet antibody pending -Heparin drip discontinued -Start bivalirudin drip -We will convert to oral agents once PEG tube is placed but need IV with rapid conversion until that point time -Hematology/oncology consult pending--> Case was discussed with Dr. Franco -PEG tube currently on hold due to severe thrombocytopenia 12/09: Platelet count still low, no significant difference. 12/10: Platelet is still low 71,000. Discussed with the surgeon. I agreed for platelet transfusion an hour before PEG tube procedure. Patient on bivalirudin drip 12/11: Platelet count 70,000 but that was before transfusion. Patient had 1 unit of platelet transfusion and then PEG tube by surgeon. 12/12: Platelet antibodies negative. It is unlikely patient has HIT. Discussed with bench technician, Dr Rueda. BUN drip stopped and start on rivaroxaban 20 mg after 1 hour stopping Coumadin 2. Continue for 3 months and then follow-up in hematology clinic with Dr Rueda and he will reevaluate whether to continue further. 12/13: In view of severe anemia, thrombocytopenia, altered mental status and anuria, the suspicion of TTP was raised by decal cutter after discussion. I told him that bench technician was consulted to rule out TTP at the time of admission and was ruled out as platelet count was normal at that time and it went low after starting IV heparin drip decal cutter. At that time bench technician reviewed the peripheral smear and ruled out TTP. I discussed with pathologist Dr. Arias and reviewed peripheral smear for last 2 days and states he received RBC fragment but not abundance. After discussion with bench technician, few fragments may be from hemolysis that has to be diffuse to to meet the diagnosis of TTP. LDH was also not more than 2 or 3 times for diagnosis of TTP. 12/16: Hemoglobin 7.2, platelet count 80,000. Normocytic normochromic acute anemia with history of anemia of chronic disease/inflammatory anemia -Hemoglobin low 7.2 g, steadily getting low from baseline 11 to 12 g. Stool for occult blood positive. Transfuse hemoglobin less than 7 g. 12/10: Hemoglobin 7.5. WBC count 2.8 thousand. 12/11: Hemoglobin similar 7.8 with a low WBC count 3.3 thousand. 12/12: Patient hemoglobin is still above 7, platelet count 77,000. I think patient will able to tolerate Xarelto 20 mg daily but not 15 mg twice daily loading dose. Discussed with bench technician 12/13: Hemoglobin 7.5. Abnormal EKG -Current EKG with new T wave inversions in the inferior lateral leads -Patient with no active chest pain and symptoms are fairly nonspecific -Cardiac enzymes are normal x3 -Echocardiogram was unimpressive showing an EF of 55% with stage I diastolic dysfunction and a pulmonary artery systolic pressure of 27 mmHg Debility -Patient with 2 recent hip surgeries for replacement then revision secondary to recurrent dislocations -PT/OT following-participation is quite limited -May need placement at discharge Left lower extremity DVT-acute Patient was on bivalirudin. 12/14: Platelet count is 83,000. Patient tolerating well Xarelto. Hemoglobin 7.3 2 mm right ureteral calculus with mild right hydronephrosis -Continue Flomax -Continue IV fluids -Urology has evaluated the patient and no need for any intervention Dry skin -Eucerin cream twice daily to lower extremities History of rheumatoid arthritis -Continue home hydroxychloroquine -Hold leflunomide until platelet count improvement -Continue home as needed Ultram Hypertension -Hold metoprolol with intermittent low blood pressures -Continue to monitor Severe depression -Continue duloxetine -Risperdal added -Anticipate this is significantly playing into her above presentation Severe malnutrition -Supplements given -Dietitian following -Continue Marinol -CT was unremarkable for any abnormalities that would suggest reason for decreased p.o. intake -Patient had PEG tube. EGD showed LA grade D esophagitis which was biopsied. Biopsy shows 1+ MSSA, 1+ MSSE and lactobacillus. Discussed with ID Dr. Salazar and he agreed for 7 days of Keflex through PEG tube. On Xarelto -SCDs CODE STATUS -Full code as per discussion with on admission Microbiology Past 72 Hours 12/11/21 Unknown Tissue - Other Gram Stain - Final 12/11/21 Unknown Tissue - Other Wound Culture - Final Staphylococcus aureus Staphylococcus epidermidis Lactobacillus plantarum 12/11/21 Unknown Tissue - Other Anaerobic Culture - Final No anaerobic bacteria isolated. Laboratory Results 12/14/21 04:42: Diff Path Review Reviewed 12/14/21 16:26: POC Glucose 99 12/14/21 21:42: POC Glucose 112 H 12/15/21 05:27: Sodium 139, Potassium 5.5 H, Chloride 109 H, Carbon Dioxide 26.0, Anion Gap 4 L, BUN 25 H, Creatinine 1.46 H, Estim Creat Clear Calc 37.66, Est GFR (MDRD) Af Amer 45 L, Est GFR (MDRD) Non-Af 37 L, BUN/Creatinine Ratio 17.1, Glucose 97, Calcium 8.2 L, Magnesium 1.9 12/15/21 05:27: WBC 6.5, RBC 2.60 L, Hgb 7.2 L, Hct 21.3 L, MCV 81.9, MCH 27.7, MCHC 33.8, RDW Std Deviation 49.7 H, RDW Coeff of Rita 16.9 H, Plt Count 80 L, MPV 9.9, Neut % (Auto) Not Reportable, Absolute Neuts (auto) 5.0, Absolute Lymphs (auto) 0.52 L, Total Counted 100, Neutrophils % (Manual) 73 H, Band Neutrophils % 4, Lymphocytes % (Manual) 8 L, Monocytes % (Manual) 2, Eosinophils % (Manual) 1, Metamyelocytes % 1, Myelocytes % 10 H, Promyelocytes % 1 H, Diff Path Review Reviewed, Atypical Lymphocytes 1+, Platelet Estimate MOD DEC, Anisocytosis 1+ 12/15/21 05:55: POC Glucose 94 12/15/21 13:01: POC Glucose 116 H Charges/Coding Visit Charges Inpatient E&M: 51902 Subs Hosp L2
--- NOTE | 2021-12-15 17:04 | CASEMGMT ---
ISAÍAS Mcmahon contacted Travis at [facility] Inpatient pharmacy regarding [facility] needing 3 days worth of tube feeds. Per Travis this would be 4 bottles. 4 bottles were sent to patient's room to go with her at discharge. ISAÍAS spoke with CHANCE Rosado and let her know as well as charge manager Darline. Patient may be medically ready for discharge tomorrow. Saturday ISAÍAS Mcknight is aware. Roxanna or crisis will work on getting patient to [facility]. Plan: [facility] when medically ready. Tamara Estrada DIE BARBER STEFF
[2021-12-15] MEDS: Rivaroxaban 20 MG Tablet GT (18:18)
[2021-12-15] MEDS: Jevity 1.5. 1,000 ML Bottle 240 ML GT ×2 (18:19→22:43)
[2021-12-15] MEDS: Tamsulosin HCl 0.4 MG Capsule PO (18:19)
[2021-12-15 18:56] LABS: Bedside Glucose 107 mg/dL (74-106)
[2021-12-15 23:15] LABS: Bedside Glucose 119 mg/dL (74-106)
[2021-12-16] VITALS (14 sets, daily range): BP systolic 93–103; BP diastolic 62–77; PULSE 68–100; RESP 15–18; TEMP 36.2–36.7; O2SAT 95–99
[2021-12-16] MEDS: Jevity 1.5. 1,000 ML Bottle 240 ML GT ×5 (06:43→23:26)
[2021-12-16] MEDS: Levothyroxine 150 MCG Tablet PO (06:43)
[2021-12-16] MEDS: Menthol/Lanolin/Calamine/Znox 113 GM Tube 1 APPLIC TOPICAL ×3 (06:43→23:27)
[2021-12-16] MEDS: 0.9% Saline Lock 10 ML Syringe IV (06:57)
[2021-12-16 07:07] LABS: Hemoglobin 6.6 g/dL (12.0-15.0); Mean Platelet Vol. 10.4 fl (6.2-12.0); POSITIVE COUNT YES; POSITIVE DIFFERENTIAL YES; POSITIVE MORPHOLOGY YES; Platelet Count 72 K/mm3 (150-450); RBC Distribution Width CV 16.5 % (11.6-14.6); RBC Distribution Width SD 48.7 fl (35.1-43.9); Red Blood Count 2.44 M/mm3 (4.2-5.4); White Blood Count 5.6 K/mm3 (4.4-11.0)
[2021-12-16 07:11] LABS: Bedside Glucose 95 mg/dL (74-106)
[2021-12-16 07:22] LABS: Anion Gap 5 (5-15); BUN 24 mg/dL (7-18); BUN/Creat Ratio 16.9 RATIO (10-20); Chloride 109 mmol/L (98-107); Creatinine, Serum 1.42 mg/dL (0.55-1.02); EST Glomerular Filtration Rate 39 mL/min (>60); Est Glom Filt Rate - Afr Amer 47 mL/min (>60); Estimated Creatinine Clearance 38.73 ml/min; Glucose 111 mg/dL (74-106); Potassium 4.6 mmol/L (3.5-5.1); Sodium Level 141 mmol/L (136-145)
[2021-12-16 07:25] LABS: Neutrophil-Band 1 % (0-5); Neutrophil-Segmented 80 % (47-70); Total Cells Counted 100 (MANUAL DIFF)
[2021-12-16 07:26] LABS: Eosinophil 1 % (0-5); Lymphocyte 12 % (19-41); Metamyelocyte 1 % (0-1); Monocyte 1 % (0-10); Myelocyte 4 % (0-0)
[2021-12-16 07:57] LABS: Differential Indicated MANUAL DIFF
[2021-12-16] MEDS: Hydroxychloroquine 200 MG Tablet PO ×2 (08:51→16:47)
[2021-12-16] MEDS: RisperiDONE 1 MG Tablet PO ×2 (08:51→23:16)
[2021-12-16] MEDS: Furosemide 40 MG/4 ML Vial IV (08:51)
[2021-12-16] MEDS: Cephalexin 500 MG Capsule GT ×2 (08:51→23:17)
[2021-12-16] MEDS: Petrolatum 33% Tube 1 APPLIC TOPICAL ×2 (08:52→23:27)
[2021-12-16 09:18] LABS: Absolute Neutrophil Count 4.5 X10^3/uL (2.0-7.7)
[2021-12-16 09:19] LABS: Absolute Lymphocyte Count 0.67 X10^3/uL (0.83-4.51); Platelet Estimate MOD DEC (ADEQ); Red Cell Morphology NORM C+C NORMAL (NORM C&C)
--- NOTE | 2021-12-16 10:45 | PCM.PN.HOSP ---
Subjective Subjective Follow-up for CAD, DVT, diarrhea Patient having diarrhea in the morning today. Probably due to Kayexalate. Objective Data Objective Data Vital Signs: Vital Signs Temp Pulse Resp BP Pulse Ox O2 Del Method 98.0 F 74 18 98/64 95 Room Air 12/16/21 10:00 12/16/21 10:00 12/16/21 10:00 12/16/21 10:00 12/16/21 10:00 12/16/21 10:00 Oxygen Delivery Method Room Air Weight: 203 lb 14.841 oz Body Mass Index (BMI) 29.0 Intake & Output: Intake and Output for Last 24 Hours 12/14/21 12/15/21 12/16/21 23:59 23:59 23:59 Intake Total 1280 / 1280 1435 / 1675 520 / 520 Output Total 2375 / 2775 2500 / 3000 1500 / 1500 Balance -1095 / -1495 -1065 / -1325 -980 / -980 Medical Nutrition Assessment Dietitian: Malnutrition Criteria Met Start: 12/04/21 14:18 Freq: Status: Active Protocol: Document 12/15/21 15:25 AG (Rec: 12/15/21 15:25 [id number]) Nutrition Malnutrition Evidence of Malnutrition Exists Yes Malnutrition (severe): Chronic Evidenced By Suboptimal Energy Intake ( Severe),Weight Loss (Severe) Clinical Problem Chronic Disease or Condition Related Malnutrition Etiology severe, chronic malnutrition r /t inadequate energy intake d/ t depression Signs/Symptoms as evidenced by unintentional wt loss of 18.7kg/20% x 2 months; estimated PO intake meeting <50% of estimated energy needs x 2 weeks FILM NUMBERER; estimated PO intake meeting < 75% of estimated energy needs x 6 months Status Active Problem Recommendation Dietitian Recommendations/Changes 1. ENTRY LEVEL AUTOMOTIVE TECHNICIAN following; no diet order at this time. 2. In discussion w/ Dr. Mclaughlin, will increase enteral nutrition today to goal rate: 240mL Jevity 1.5 bolus 5x/day w/100mL H2O flush before and after each bolus to provide 1800 calories, 76 g protein/ day. 100mL H2O flush q 6 hours to provide 2224mL total fluid /day. 3. Continue daily weights, trend closely. Lab / Micro Data Result Diagrams: 12/16/21 06:55 12/16/21 06:55 Labs: Laboratory Results - last 24 hr 12/14/21 04:42: Diff Path Review Reviewed 12/15/21 05:27: Diff Path Review Reviewed 12/15/21 13:01: POC Glucose 116 H 12/15/21 18:17: POC Glucose 107 H 12/15/21 22:40: POC Glucose 119 H 12/16/21 06:45: POC Glucose 95 12/16/21 06:55: WBC 5.6, RBC 2.44 L, Hgb 6.6 L, Hct 20.0 L, MCV 82.0, MCH 27.0, MCHC 33.0, RDW Std Deviation 48.7 H, RDW Coeff of Rita 16.5 H, Plt Count 72 L, MPV 10.4, Neut % (Auto) Not Reportable, Absolute Neuts (auto) 4.5, Absolute Lymphs (auto) 0.67 L, Total Counted 100, Neutrophils % (Manual) 80 H, Band Neutrophils % 1, Lymphocytes % (Manual) 12 L, Monocytes % (Manual) 1, Eosinophils % (Manual) 1, Metamyelocytes % 1, Myelocytes % 4 H, Diff Path Review May foll, Platelet Estimate MOD DEC, RBC Morphology NORM C+C 12/16/21 06:55: Sodium 141, Potassium 4.6, Chloride 109 H, Carbon Dioxide 27.0, Anion Gap 5, BUN 24 H, Creatinine 1.42 H, Estim Creat Clear Calc 38.73, Est GFR (MDRD) Af Amer 47 L, Est GFR (MDRD) Non-Af 39 L, BUN/Creatinine Ratio 16.9, Glucose 111 H, Calcium 8.0 L Micro: Microbiology 12/11/21 Unknown Tissue - Other Fungal Smear - Final 12/11/21 Unknown Tissue - Other Gram Stain - Final 12/11/21 Unknown Tissue - Other Wound Culture - Final Staphylococcus aureus Staphylococcus epidermidis Lactobacillus plantarum 12/11/21 Unknown Tissue - Other Anaerobic Culture - Final No anaerobic bacteria isolated. 12/07/21 16:55 Stool Stool Occult Blood (DONNELL) - Final Occult Blood Positive 12/03/21 14:35 Nasal Secretion SARS-CoV-2 Antigen (Rapid) - Final Rhythm Strip Rhythm Strip: Sinus Tach Rate: 108 Ectopy: None Physical Exam Narrative Seen and examined. General: Awake, lethargic, loss of appetite, no change in general condition HEENT: Atraumatic, PERRLA, EOMI, Normocephalic Oral: Oral mucosa moist. No Gingival or Mucosal Lesions/ Ulcerations Neck: Supple, No JVD, Negative Carotid Bruits Lungs: Air entry diminished in bilateral lung bases. No crepitation/rhonchi Cardiovascular: Regular rate, Regular Rhythm, Normal S1, Normal S2, systolic murmur LLSB Abdomen: PEG tube present. Tube feeding increased. Bowel Sounds sluggish, Soft, Non Tender, Non-Distended : Urine clear no renal angle tenderness. No suprapubic tenderness. Extremities: Bilateral nonpitting lower leg edema, Capillary Refill Less than 3 Seconds Skin: Small superficial sore/seepage from bilateral feet. Right foot has chronic scar. Musculoskeletal: ROM severely restricted. No active movement. Cannot lift her legs. Left leg bigger than right leg. ROM restricted at knee and hip joints. Neurological: Cranial nerves II-XII grossly intact, DTR 2/4, muscle strength 3/5 at major joints of lower extremity Psych/Mental Status: Flat affect. Assessment & Plan Assessment/Plan (1) Acute kidney injury: (2) Toxic metabolic encephalopathy: (3) Severe malnutrition: (4) Thrombocytopenia: PLAN: Plan This 71-year-old female was admitted with altered mental status, delusion; was talking to her mother who long time ago. Patient behavior was not appropriate/derealization. Patient does not have appetite and is very depressed. Toxic/metabolic encephalopathy, may be related to polypharmacy. Patient on meclizine. Acute encephalopathy has resolved. B12 low at 222, on B12 oral replacement -TSH within normal limits 12/13: Patient is still mumbles few words, opens eyes, looks depressed but no meaningful conversation. On tube feed. JACOB secondary to severe dehydration, prerenal/obstructive: -Serum creatinine is 1.2-->0.3 above baseline on presentation -Serum is now able lysed and trending back down and now 1.66 -Continue IV fluids with LR 75 cc/h until patient is able to take p.o. adequately to maintain appropriate hydration -Renal ultrasound showed a possible mass posterior to the bladder versus hematoma--> Blanc placed and significant sediment and what looks like to be blood--> CT done with no comment with regards to the above--> Urology has seen the patient and will follow as an outpatient with no urgent needs for intervention at this time -FeNa is 6.9% on 12/06/2021 most consistent with obstructive -Blanc placed and serum creatinine is trending down at this point -Avoid nephrotoxins. Serum creatinine 1.39, BUN 42. -Would leave Blanc in at discharge 12/09: Creatinine getting better. 1.27. 12/10, creatinine 1.19. Hypomagnesemia, magnesium getting replaced. Mild hypokalemia, IV 20 M EQ KCl replaced. 12/12: Patient creatinine Is around 50 mill per minute. Potassium replacement ordered.Monitor electrolytes. 12/13: Patient had anuria, urine output 30 mL and Ringer lactate was restarted yesterday. Patient also has diffuse edema of upper and lower extremities. IV fluid was stopped and Lasix 20 mg IV was given patient had 350 mill urine output as per nursing staff. Transportation Inspector was consulted. After discussion with laboratory apparatus glass blower it was made clear that TTP was ruled out at the time of admission. 12/14: Increasing creatinine from 1.3-1.43. BUN 26. Discussed with the laboratory apparatus glass blower continue Lasix 40 mg IV daily. Patient also has flores change in BP prep related to fluid shift. 12/15: Acute hyperkalemia, K5.5, potassium supplement discontinued. Continue diuretic. Patient BUN/creatinine 25/1.46. 12/16: Patient had mild diarrhea probably due to Kayexalate given for hyperkalemia. Potassium is normal. Bicarb 27. Anion gap 6. Sodium normal. Thrombocytopenia: Certain differential diagnosis are HIT. Pretest probability, of 4 T score is 4 points intermediate probability 14%. Peripheral smear pending. MPV normal. -Heparin-induced platelet antibody pending -Heparin drip discontinued -Start bivalirudin drip -We will convert to oral agents once PEG tube is placed but need IV with rapid conversion until that point time -Hematology/oncology consult pending--> Case was discussed with Dr. Franco -PEG tube currently on hold due to severe thrombocytopenia 12/09: Platelet count still low, no significant difference. 12/10: Platelet is still low 71,000. Discussed with the surgeon. I agreed for platelet transfusion an hour before PEG tube procedure. Patient on bivalirudin drip 12/11: Platelet count 70,000 but that was before transfusion. Patient had 1 unit of platelet transfusion and then PEG tube by surgeon. 12/12: Platelet antibodies negative. It is unlikely patient has HIT. Discussed with sql programmer analyst, Dr Rueda. BUN drip stopped and start on rivaroxaban 20 mg after 1 hour stopping Coumadin 2. Continue for 3 months and then follow-up in hematology clinic with Dr Rueda and he will reevaluate whether to continue further. 12/13: In view of severe anemia, thrombocytopenia, altered mental status and anuria, the suspicion of TTP was raised by laboratory apparatus glass blower after discussion. I told him that sql programmer analyst was consulted to rule out TTP at the time of admission and was ruled out as platelet count was normal at that time and it went low after starting IV heparin drip laboratory apparatus glass blower. At that time sql programmer analyst reviewed the peripheral smear and ruled out TTP. I discussed with pathologist Dr. Arias and reviewed peripheral smear for last 2 days and states he received RBC fragment but not abundance. After discussion with sql programmer analyst, few fragments may be from hemolysis that has to be diffuse to to meet the diagnosis of TTP. LDH was also not more than 2 or 3 times for diagnosis of TTP. 12/16: Hemoglobin 7.2, platelet count 80,000. 12/17: Hemoglobin dropped to 6.6. Normocytic normochromic acute anemia with history of anemia of chronic disease/inflammatory anemia -Hemoglobin low 7.2 g, steadily getting low from baseline 11 to 12 g. Stool for occult blood positive. Transfuse hemoglobin less than 7 g. 12/10: Hemoglobin 7.5. WBC count 2.8 thousand. 12/11: Hemoglobin similar 7.8 with a low WBC count 3.3 thousand. 12/12: Patient hemoglobin is still above 7, platelet count 77,000. I think patient will able to tolerate Xarelto 20 mg daily but not 15 mg twice daily loading dose. Discussed with sql programmer analyst 12/13: Hemoglobin 7.5. Abnormal EKG -Current EKG with new T wave inversions in the inferior lateral leads -Patient with no active chest pain and symptoms are fairly nonspecific -Cardiac enzymes are normal x3 -Echocardiogram was unimpressive showing an EF of 55% with stage I diastolic dysfunction and a pulmonary artery systolic pressure of 27 mmHg Debility -Patient with 2 recent hip surgeries for replacement then revision secondary to recurrent dislocations -PT/OT following-participation is quite limited -May need placement at discharge Left lower extremity DVT-acute Patient was on bivalirudin. 12/14: Platelet count is 83,000. Patient tolerating well Xarelto. Hemoglobin 7.3 2 mm right ureteral calculus with mild right hydronephrosis -Continue Flomax -Continue IV fluids -Urology has evaluated the patient and no need for any intervention Dry skin -Eucerin cream twice daily to lower extremities History of rheumatoid arthritis -Continue home hydroxychloroquine -Hold leflunomide until platelet count improvement -Continue home as needed Ultram Hypertension -Hold metoprolol with intermittent low blood pressures -Continue to monitor Severe depression -Continue duloxetine -Risperdal added -Anticipate this is significantly playing into her above presentation Severe malnutrition -Supplements given -Dietitian following -Continue Marinol -CT was unremarkable for any abnormalities that would suggest reason for decreased p.o. intake -Patient had PEG tube. EGD showed LA grade D esophagitis which was biopsied. Biopsy shows 1+ MSSA, 1+ MSSE and lactobacillus. Discussed with ID Dr. Salazar and he agreed for 7 days of Keflex through PEG tube. On Xarelto -SCDs CODE STATUS -Full code as per discussion with on admission Microbiology Past 72 Hours 12/11/21 Unknown Tissue - Other Fungal Smear - Final 12/11/21 Unknown Tissue - Other Gram Stain - Final 12/11/21 Unknown Tissue - Other Wound Culture - Final Staphylococcus aureus Staphylococcus epidermidis Lactobacillus plantarum 12/11/21 Unknown Tissue - Other Anaerobic Culture - Final No anaerobic bacteria isolated. Laboratory Results 12/15/21 18:17: POC Glucose 107 H 12/15/21 22:40: POC Glucose 119 H 12/16/21 06:45: POC Glucose 95 12/16/21 06:55: WBC 5.6, RBC 2.44 L, Hgb 6.6 L, Hct 20.0 L, MCV 82.0, MCH 27.0, MCHC 33.0, RDW Std Deviation 48.7 H, RDW Coeff of Rita 16.5 H, Plt Count 72 L, MPV 10.4, Neut % (Auto) Not Reportable, Absolute Neuts (auto) 4.5, Absolute Lymphs (auto) 0.67 L, Total Counted 100, Neutrophils % (Manual) 80 H, Band Neutrophils % 1, Lymphocytes % (Manual) 12 L, Monocytes % (Manual) 1, Eosinophils % (Manual) 1, Metamyelocytes % 1, Myelocytes % 4 H, Diff Path Review May foll, Platelet Estimate MOD DEC, RBC Morphology NORM C+C 12/16/21 06:55: Sodium 141, Potassium 4.6, Chloride 109 H, Carbon Dioxide 27.0, Anion Gap 5, BUN 24 H, Creatinine 1.42 H, Estim Creat Clear Calc 38.73, Est GFR (MDRD) Af Amer 47 L, Est GFR (MDRD) Non-Af 39 L, BUN/Creatinine Ratio 16.9, Glucose 111 H, Calcium 8.0 L 12/16/21 11:20: Blood Type A POSITIVE, Antibody Screen NEGATIVE, Crossmatch See Detail 12/16/21 11:33: POC Glucose 136 H Charges/Coding Visit Charges Inpatient E&M: 20432 Subs Hosp L2
[2021-12-16 11:55] LABS: Bedside Glucose 136 mg/dL (74-106)
--- NOTE | 2021-12-16 13:38 | CM.ED ---
ISAÍAS called Gali at [facility] and updated that patient is not medically ready today. Gali said that she will update the staff. ISAÍAS updated MD that we need labs and EKG on day of discharge. Roxanna FLORENTINO
--- NOTE | 2021-12-16 15:53 | CM.ED ---
Addendum entered by Roxanna Holm 12/16/21 18:49: Patient, when medically ready, will need to referred to [facility] and include the daily labs and EKG. Fax the labs and EKG to [phone]. Addendum entered by Roxanna Holm 12/16/21 16:55: ISAÍAS had also asked if patient was accepted at [facility]. Vale said that patient can not be given the acceptance until patient is medically clear. Green sheet on the chart. Roxanna FLORENTINO Original Note: ISAÍAS called [facility] and spoke to Vale and she said that they could manage a patient with a tavarez cath and that would not be an issue. Roxanna FLORENTINO
[2021-12-16] MEDS: Rivaroxaban 20 MG Tablet GT (16:47)
[2021-12-16] MEDS: Tamsulosin HCl 0.4 MG Capsule PO (16:48)
[2021-12-16 17:30] LABS: Bedside Glucose 101 mg/dL (74-106)
[2021-12-16 23:36] LABS: Bedside Glucose 95 mg/dL (74-106)
[2021-12-17] VITALS (10 sets, daily range): BP systolic 102–106; BP diastolic 46–68; PULSE 89–107; RESP 12–18; TEMP 36.3–37; O2SAT 97–100
[2021-12-17] MEDS: 0.9% Saline Lock 10 ML Syringe IV ×4 (01:16→23:22)
[2021-12-17] MEDS: Jevity 1.5. 1,000 ML Bottle 240 ML GT (05:29)
[2021-12-17] MEDS: Menthol/Lanolin/Calamine/Znox 113 GM Tube 1 APPLIC TOPICAL ×3 (05:29→23:07)
[2021-12-17] MEDS: Levothyroxine 150 MCG Tablet PO (05:29)
--- NOTE | 2021-12-17 05:55 | EKG12_ITS ---
Test Reason : AM EKG Blood Pressure : / mmHG Vent. Rate : 101 BPM Atrial Rate : 101 BPM P-R Int : 160 ms QRS Dur : 074 ms QT Int : 308 ms P-R-T Axes : 000 -32 266 degrees QTc Int : 399 ms Sinus tachycardia with Premature atrial complexes Left axis deviation Low voltage QRS Inferior infarct , age undetermined Abnormal ECG When compared with ECG of 11-DEC-2021 05:09, QT has shortened Confirmed by MATTHEW VARGAS, AMAIRANI ([id number]), manuscript editor DEMI FREEMAN ([id number]) on 12/20/2021 11:38:45 AM Referred By: Confirmed By:AMAIRANI CASTRO MD
[2021-12-17 07:40] LABS: Hematocrit 23.3 % (37-47); Hemoglobin 7.5 g/dL (12.0-15.0); Mean Corp Hgb Conc 32.2 g/dL (32-36); Mean Corpuscular Hgb 26.9 pg (27.0-32.0); Mean Corpuscular Volume 83.5 fL (81-99); Mean Platelet Vol. 10.6 fl (6.2-12.0); POSITIVE COUNT YES; POSITIVE DIFFERENTIAL YES; POSITIVE MORPHOLOGY YES; Platelet Count 79 K/mm3 (150-450); RBC Distribution Width CV 16.4 % (11.6-14.6); RBC Distribution Width SD 49.3 fl (35.1-43.9); Red Blood Count 2.79 M/mm3 (4.2-5.4); White Blood Count 6.5 K/mm3 (4.4-11.0)
[2021-12-17 07:46] LABS: Differential Indicated MANUAL DIFF
[2021-12-17 07:50] LABS: Anion Gap 9 (5-15); BUN 25 mg/dL (7-18); BUN/Creat Ratio 16.8 RATIO (10-20); Calcium,Total 7.9 mg/dL (8.5-10.1); Chloride 106 mmol/L (98-107); Creatinine, Serum 1.49 mg/dL (0.55-1.02); EST Glomerular Filtration Rate 37 mL/min (>60); Est Glom Filt Rate - Afr Amer 44 mL/min (>60); Estimated Creatinine Clearance 36.91 ml/min; Glucose 124 mg/dL (74-106); Potassium 4.1 mmol/L (3.5-5.1); Sodium Level 142 mmol/L (136-145)
[2021-12-17 08:11] LABS: Bedside Glucose 90 mg/dL (74-106)
[2021-12-17] MEDS: RisperiDONE 1 MG Tablet PO ×2 (08:38→23:08)
[2021-12-17] MEDS: Cephalexin 500 MG Capsule GT ×2 (08:38→23:09)
[2021-12-17] MEDS: Iron Polysaccharide Complex 150 MG CAPSULE PO (08:38)
[2021-12-17] MEDS: Hydroxychloroquine 200 MG Tablet PO ×2 (08:38→16:46)
[2021-12-17] MEDS: Furosemide 40 MG/4 ML Vial IV (08:38)
[2021-12-17] MEDS: Petrolatum 33% Tube 1 APPLIC TOPICAL ×2 (08:39→23:07)
[2021-12-17 09:28] LABS: Lymphocyte 17 % (19-41); Monocyte 1 % (0-10); Myelocyte 2 % (0-0); Neutrophil-Segmented 80 % (47-70); Total Cells Counted 100 (MANUAL DIFF)
[2021-12-17 09:29] LABS: Absolute Neutrophil Count 5.2 X10^3/uL (2.0-7.7)
[2021-12-17 09:30] LABS: Platelet Estimate MOD DEC (ADEQ); Red Cell Morphology NORM C+C NORMAL (NORM C&C)
[2021-12-17 12:16] LABS: Bedside Glucose 91 mg/dL (74-106)
--- NOTE | 2021-12-17 13:04 | PCM.PN.HOSP ---
Subjective Subjective Follow-up for multiple acute issues. Nurse showed me that patient has excoriated buttock region. Patient also has small superficial midline sacral decubitus ulcer stage II. Lumbar surgical scar Patient having liquid bowel movement for on in diaper and bed in the morning. Objective Data Objective Data Vital Signs: Vital Signs Temp Pulse Resp BP Pulse Ox O2 Del Method 98.3 F 89 16 102/66 99 Room Air 12/17/21 11:49 12/17/21 11:49 12/17/21 11:49 12/17/21 11:49 12/17/21 11:49 12/17/21 11:49 Oxygen Delivery Method Room Air Weight: 197 lb 5.019 oz Body Mass Index (BMI) 29.0 Intake & Output: Intake and Output for Last 24 Hours 12/15/21 12/16/21 12/17/21 23:59 23:59 22:59 Intake Total 1435 / 1675 2440 / 2640 650 / 650 Output Total 2500 / 3000 3325 / 3925 1100 / 1100 Balance -1065 / -1325 -885 / -1285 -450 / -450 Medical Nutrition Assessment Dietitian: Malnutrition Criteria Met Start: 12/04/21 14:18 Freq: Status: Active Protocol: Document 12/17/21 11:19 GENE (Rec: 12/17/21 11:19 GENE [id number]) Nutrition Malnutrition Evidence of Malnutrition Exists Yes Malnutrition (severe): Chronic Evidenced By Suboptimal Energy Intake ( Severe),Weight Loss (Severe) Clinical Problem Chronic Disease or Condition Related Malnutrition Etiology severe, chronic malnutrition r /t inadequate energy intake d/ t depression Signs/Symptoms as evidenced by unintentional 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 CONTINUITY TESTER following; no diet order at this time. 2. Continue daily weights, trend closely. 3. When restart TF can restart Jevity 1.5 at lower rate and gradually increase to goal rate as pt tolerates. (start w/ 100mL bolus Jevity 1.5 5x/ day with 40mL H2O flush before and after each bolus to provide 750 calories, 32 g protein, and 780mL total fluid /day. As pt tolerates, would increase boluses by 70mL to 170mL 5x/day w/ 60mL H2O flush before and after each bolus. TF Goal rate 240mL Jevity 1.5 bolus 5x/day w/100mL H2O flush before and after each bolus to provide 1800 calories, 76 g protein, and 1912mL total fluid/day.) OR can change to lower fiber formula - Vital AF 1.2 - ( start at 100 ml 5x/day w/ 40 ml water flush before and after each feeding to provide 600 yohana / 37 gm pro/ 805 ml free water/day, as pt tolerates increase to 200 ml 5x/day w/ 50 ml water flush before and after each feeding to provide 1200 yohana/ 75 gm pro / 1811 ml free water/day; Goal of 300 ml bolus 5x/day w/ 60 ml h2o flush before and after each feed to provide ~ 1800 yohana/ 112 gm pro/ 1816 ml free water/day). Lab / Micro Data Result Diagrams: 12/17/21 Unknown 12/17/21 Unknown Labs: Laboratory Results - last 24 hr 12/16/21 11:20: Crossmatch See Detail 12/16/21 16:49: POC Glucose 101 12/16/21 23:11: POC Glucose 95 12/17/21 05:24: POC Glucose 90 12/17/21 11:52: POC Glucose 91 12/17/21 : WBC 6.5, RBC 2.79 L, Hgb 7.5 L, Hct 23.3 L, MCV 83.5, MCH 26.9 L, MCHC 32.2, RDW Std Deviation 49.3 H, RDW Coeff of Rita 16.4 H, Plt Count 79 L, MPV 10.6, Neut % (Auto) Not Reportable, Absolute Neuts (auto) 5.2, Absolute Lymphs (auto) 1.10, Total Counted 100, Neutrophils % (Manual) 80 H, Lymphocytes % (Manual) 17 L, Monocytes % (Manual) 1, Myelocytes % 2 H, Diff Path Review May feroz, Platelet Estimate MOD DEC, RBC Morphology NORM C+C 12/17/21 : Sodium 142, Potassium 4.1, Chloride 106, Carbon Dioxide 27.0, Anion Gap 9, BUN 25 H, Creatinine 1.49 H, Estim Creat Clear Calc 36.91, Est GFR (MDRD) Af Amer 44 L, Est GFR (MDRD) Non-Af 37 L, BUN/Creatinine Ratio 16.8, Glucose 124 H, Calcium 7.9 L Micro: Microbiology 12/11/21 Unknown Tissue - Other Fungal Smear - Final 12/11/21 Unknown Tissue - Other Gram Stain - Final 12/11/21 Unknown Tissue - Other Wound Culture - Final Staphylococcus aureus Staphylococcus epidermidis Lactobacillus plantarum 12/11/21 Unknown Tissue - Other Anaerobic Culture - Final No anaerobic bacteria isolated. 12/07/21 16:55 Stool Stool Occult Blood (DONNELL) - Final Occult Blood Positive 12/03/21 14:35 Nasal Secretion SARS-CoV-2 Antigen (Rapid) - Final Rhythm Strip Rhythm Strip: Sinus Tach Rate: 108 Ectopy: None Physical Exam Narrative Seen and examined. Tube feeds discontinued. General: Awake, mild lethargic, loss of appetite, no change in general condition HEENT: Atraumatic, PERRLA, EOMI, Normocephalic Oral: Oral mucosa moist. No Gingival or Mucosal Lesions/ Ulcerations Neck: Supple, No JVD, Negative Carotid Bruits Lungs: Air entry diminished in bilateral lung bases. No crepitation/rhonchi Cardiovascular: Regular rate, Regular Rhythm, Normal S1, Normal S2, systolic murmur LLSB Abdomen: PEG tube present. Tube feeding increased. Bowel Sounds sluggish, Soft, Non Tender, Non-Distended : Urine clear no renal angle tenderness. No suprapubic tenderness. Extremities: Bilateral nonpitting lower leg edema, Capillary Refill Less than 3 Seconds Skin: Bilateral buttock region excoriated, mild erythema. Small midline sacral region stage II sacrococcygeal ulcer present on admission covered with dressing. Right foot has chronic scar. Musculoskeletal: ROM severely restricted. No active movement. Cannot lift her legs. Left leg bigger than right leg. ROM restricted at knee and hip joints. Neurological: Cranial nerves II-XII grossly intact, DTR 2/4, muscle strength 3/5 at major joints of lower extremity Psych/Mental Status: Flat affect. Assessment & Plan Assessment/Plan (1) Acute kidney injury: (2) Toxic metabolic encephalopathy: (3) Severe malnutrition: (4) Thrombocytopenia: PLAN: Plan This 71-year-old female was admitted with altered mental status, delusion; was talking to her mother who long time ago. Patient behavior was not appropriate/derealization. Patient does not have appetite and is very depressed. Toxic/metabolic encephalopathy, may be related to polypharmacy. Patient on meclizine. Acute encephalopathy has resolved. B12 low at 222, on B12 oral replacement -TSH within normal limits 12/13: Patient is still mumbles few words, opens eyes, looks depressed but no meaningful conversation. On tube feed. JACOB secondary to severe dehydration, prerenal/obstructive: -Serum creatinine is 1.2-->0.3 above baseline on presentation -Serum is now able lysed and trending back down and now 1.66 -Continue IV fluids with LR 75 cc/h until patient is able to take p.o. adequately to maintain appropriate hydration -Renal ultrasound showed a possible mass posterior to the bladder versus hematoma--> Blanc placed and significant sediment and what looks like to be blood--> CT done with no comment with regards to the above--> Urology has seen the patient and will follow as an outpatient with no urgent needs for intervention at this time -FeNa is 6.9% on 12/06/2021 most consistent with obstructive -Blanc placed and serum creatinine is trending down at this point -Avoid nephrotoxins. Serum creatinine 1.39, BUN 42. -Would leave Blanc in at discharge 12/09: Creatinine getting better. 1.27. 12/10, creatinine 1.19. Hypomagnesemia, magnesium getting replaced. Mild hypokalemia, IV 20 M EQ KCl replaced. 12/12: Patient creatinine Is around 50 mill per minute. Potassium replacement ordered.Monitor electrolytes. 12/13: Patient had anuria, urine output 30 mL and Ringer lactate was restarted yesterday. Patient also has diffuse edema of upper and lower extremities. IV fluid was stopped and Lasix 20 mg IV was given patient had 350 mill urine output as per nursing staff. Band Saw Filer was consulted. After discussion with print binding and finishing worker it was made clear that TTP was ruled out at the time of admission. 12/14: Increasing creatinine from 1.3-1.43. BUN 26. Discussed with the print binding and finishing worker continue Lasix 40 mg IV daily. Patient also has flores change in BP prep related to fluid shift. 12/15: Acute hyperkalemia, K5.5, potassium supplement discontinued. Continue diuretic. Patient BUN/creatinine 25/1.46. 12/16: Patient had mild diarrhea probably due to Kayexalate given for hyperkalemia. Potassium is normal. Bicarb 27. Anion gap 6. Sodium normal. 12/17: Creatinine 1.49 elevated from baseline because of Lasix. IV Lasix discontinued patient having diarrhea. I think her diarrhea is most related to tube feed probably high osmolality of tube feed. Continue free water supplement at least 1.5 L/day to be increased as needed per intake and output status, hemodynamic and kidney function parameters. Thrombocytopenia: Certain differential diagnosis are HIT. Pretest probability, of 4 T score is 4 points intermediate probability 14%. Peripheral smear pending. MPV normal. -Heparin-induced platelet antibody pending -Heparin drip discontinued -Start bivalirudin drip -We will convert to oral agents once PEG tube is placed but need IV with rapid conversion until that point time -Hematology/oncology consult pending--> Case was discussed with Dr. Franco -PEG tube currently on hold due to severe thrombocytopenia 12/09: Platelet count still low, no significant difference. 12/10: Platelet is still low 71,000. Discussed with the surgeon. I agreed for platelet transfusion an hour before PEG tube procedure. Patient on bivalirudin drip 12/11: Platelet count 70,000 but that was before transfusion. Patient had 1 unit of platelet transfusion and then PEG tube by surgeon. 12/12: Platelet antibodies negative. It is unlikely patient has HIT. Discussed with bulk pigment reducer, Dr Rueda. BUN drip stopped and start on rivaroxaban 20 mg after 1 hour stopping Coumadin 2. Continue for 3 months and then follow-up in hematology clinic with Dr Rueda and he will reevaluate whether to continue further. 12/13: In view of severe anemia, thrombocytopenia, altered mental status and anuria, the suspicion of TTP was raised by print binding and finishing worker after discussion. I told him that bulk pigment reducer was consulted to rule out TTP at the time of admission and was ruled out as platelet count was normal at that time and it went low after starting IV heparin drip print binding and finishing worker. At that time bulk pigment reducer reviewed the peripheral smear and ruled out TTP. I discussed with pathologist Dr. Arias and reviewed peripheral smear for last 2 days and states he received RBC fragment but not abundance. After discussion with bulk pigment reducer, few fragments may be from hemolysis that has to be diffuse to to meet the diagnosis of TTP. LDH was also not more than 2 or 3 times for diagnosis of TTP. 12/16: Hemoglobin 7.2, platelet count 80,000. 12/17: Hemoglobin increased to 7.5 after 1 unit of PRBC transfusion after 6.6 hemoglobin. Platelet count is 79,000. Normocytic normochromic acute anemia with history of anemia of chronic disease/inflammatory anemia -Hemoglobin low 7.2 g, steadily getting low from baseline 11 to 12 g. Stool for occult blood positive. Transfuse hemoglobin less than 7 g. 12/10: Hemoglobin 7.5. WBC count 2.8 thousand. 12/11: Hemoglobin similar 7.8 with a low WBC count 3.3 thousand. 12/12: Patient hemoglobin is still above 7, platelet count 77,000. I think patient will able to tolerate Xarelto 20 mg daily but not 15 mg twice daily loading dose. Discussed with bulk pigment reducer 12/13: Hemoglobin 7.5. Abnormal EKG -Current EKG with new T wave inversions in the inferior lateral leads -Patient with no active chest pain and symptoms are fairly nonspecific -Cardiac enzymes are normal x3 -Echocardiogram was unimpressive showing an EF of 55% with stage I diastolic dysfunction and a pulmonary artery systolic pressure of 27 mmHg Debility -Patient with 2 recent hip surgeries for replacement then revision secondary to recurrent dislocations -PT/OT following-participation is quite limited -May need placement at discharge Left lower extremity DVT-acute Patient was on bivalirudin. 12/14: Platelet count is 83,000. Patient tolerating well Xarelto. Hemoglobin 7.3 2 mm right ureteral calculus with mild right hydronephrosis -Continue Flomax -Continue IV fluids -Urology has evaluated the patient and no need for any intervention Dry skin -Eucerin cream twice daily to lower extremities History of rheumatoid arthritis -Continue home hydroxychloroquine -Hold leflunomide until platelet count improvement -Continue home as needed Ultram Hypertension -Hold metoprolol with intermittent low blood pressures -Continue to monitor Severe depression -Continue duloxetine -Risperdal added -Anticipate this is significantly playing into her above presentation Severe malnutrition -Supplements given -Dietitian following -Continue Marinol -CT was unremarkable for any abnormalities that would suggest reason for decreased p.o. intake -Patient had PEG tube. EGD showed LA grade D esophagitis which was biopsied. Biopsy shows 1+ MSSA, 1+ MSSE and lactobacillus. Discussed with ID Dr. Salazar and he agreed for 7 days of Keflex through PEG tube. On Xarelto -SCDs CODE STATUS -Full code as per discussion with on admission Discharge plan: Patient is supposed to go to [facility] when diarrhea is controlled. Patient just had diarrhea today but besides that she had 1 unit of PRBC transfusion yesterday because of low hemoglobin as mentioned above. She has multiple active conditions including severe anemia, thrombocytopenia, DVT on anticoagulant, tube feed due to loss of appetite and sacral bedsore/gluteal skin excoriation Charges/Coding Visit Charges Inpatient E&M: 07316 Subs Hosp L2
[2021-12-17] MEDS: Tamsulosin HCl 0.4 MG Capsule PO (16:46)
[2021-12-17] MEDS: Rivaroxaban 20 MG Tablet GT (16:46)
[2021-12-17 17:20] LABS: Bedside Glucose 102 mg/dL (74-106)
[2021-12-17 23:51] LABS: Bedside Glucose 85 mg/dL (74-106)
[2021-12-18] VITALS (12 sets, daily range): BP systolic 92–110; BP diastolic 65–74; PULSE 80–95; RESP 14–18; TEMP 36.2–36.6; O2SAT 96–100
[2021-12-18] MEDS: Levothyroxine 150 MCG Tablet PO (05:51)
[2021-12-18] MEDS: Menthol/Lanolin/Calamine/Znox 113 GM Tube 1 APPLIC TOPICAL ×3 (05:51→23:11)
[2021-12-18 07:10] LABS: Bedside Glucose 78 mg/dL (74-106)
--- NOTE | 2021-12-18 07:27 | NURSING ---
Documentation reviewed with Shi FLETCHER preceptee
[2021-12-18 08:03] LABS: Differential Indicated MANUAL DIFF; Hematocrit 22.5 % (37-47); Hemoglobin 7.3 g/dL (12.0-15.0); Mean Corp Hgb Conc 32.4 g/dL (32-36); Mean Corpuscular Hgb 27.5 pg (27.0-32.0); Mean Corpuscular Volume 84.9 fL (81-99); Mean Platelet Vol. 10.5 fl (6.2-12.0); POSITIVE COUNT YES; POSITIVE DIFFERENTIAL YES; POSITIVE MORPHOLOGY YES; Platelet Count 76 K/mm3 (150-450); RBC Distribution Width CV 16.7 % (11.6-14.6); RBC Distribution Width SD 50.7 fl (35.1-43.9); Red Blood Count 2.65 M/mm3 (4.2-5.4); White Blood Count 5.3 K/mm3 (4.4-11.0)
[2021-12-18 08:28] LABS: Lymphocyte 8 % (19-41); Metamyelocyte 5 % (0-1); Monocyte 2 % (0-10); Neutrophil-Band 1 % (0-5); Neutrophil-Segmented 84 % (47-70); Total Cells Counted 100 (MANUAL DIFF)
[2021-12-18 08:29] LABS: Anisocytosis 1+; Hypochromasia 1+; Myelocyte 5 % (0-0); Platelet Estimate SLT DEC (ADEQ)
[2021-12-18 08:30] LABS: Absolute Lymphocyte Count 0.42 X10^3/uL (0.83-4.51); Absolute Neutrophil Count 4.5 X10^3/uL (2.0-7.7); Lymphocyte # 0.42 X10^3/ul (0.83-4.51); Neutrophil # 4.46 X10^3/uL (2.7-7.7)
[2021-12-18 08:40] LABS: Anion Gap 7 (5-15); BUN 22 mg/dL (7-18); Calcium,Total 8.2 mg/dL (8.5-10.1); Chloride 107 mmol/L (98-107); Creatinine, Serum 1.47 mg/dL (0.55-1.02); EST Glomerular Filtration Rate 37 mL/min (>60); Est Glom Filt Rate - Afr Amer 45 mL/min (>60); Estimated Creatinine Clearance 37.41 ml/min; Glucose 74 mg/dL (74-106); Potassium 3.8 mmol/L (3.5-5.1); Sodium Level 137 mmol/L (136-145)
[2021-12-18] MEDS: Hydroxychloroquine 200 MG Tablet PO (09:13)
[2021-12-18] MEDS: RisperiDONE 1 MG Tablet PO ×2 (09:13→23:11)
[2021-12-18] MEDS: Cephalexin 500 MG Capsule GT ×2 (09:13→23:10)
[2021-12-18] MEDS: Petrolatum 33% Tube 1 APPLIC TOPICAL ×2 (09:14→23:12)
[2021-12-18] MEDS: 0.9% Saline Lock 10 ML Syringe IV (10:21)
[2021-12-18 11:56] LABS: Bedside Glucose 69 mg/dL (74-106)
[2021-12-18 12:23] LABS: Pathologist Review Reviewed
[2021-12-18] MEDS: Dextrose 10%-Water 250 ML 40 ML IV ×2 (12:24→18:44)
[2021-12-18 12:36] LABS: Pathologist Review Reviewed
[2021-12-18 12:57] LABS: Pathologist Review Reviewed
[2021-12-18 14:00] LABS: Bedside Glucose 76 mg/dL (74-106)
[2021-12-18] MEDS: Dextrose 50%-Water 25 GM/50 ML DISP.SYRIN IV (14:21)
--- NOTE | 2021-12-18 14:35 | CM.ED ---
ISAÍAS Mcdonald advised patient is not medically ready. ISAÍAS called Kemi at [facility] and advised that patient is not medically ready for discharge. ISAÍAS will follow up with Rebecca on 12/19/21. Roxanna FLORENTINO
[2021-12-18 15:11] LABS: Bedside Glucose 162 mg/dL (74-106)
[2021-12-18] MEDS: Rivaroxaban 20 MG Tablet GT (18:15)
[2021-12-18 18:35] LABS: Bedside Glucose 110 mg/dL (74-106)
--- NOTE | 2021-12-18 19:18 | PCM.PN.HOSP ---
Subjective Subjective Follow-up on dysphagia/toxic metabolic encephalopathy/JACOB/severe malnutrition: Patient was seen and examined. She is oriented to self. She was hypoglycemic. She was treated with an amp of D50 and continued on D10. Objective Data Objective Data Vital Signs: Vital Signs Temp Pulse Resp BP Pulse Ox O2 Del Method 97.5 F L 86 16 110/74 100 Room Air 12/18/21 18:28 12/18/21 18:28 12/18/21 18:28 12/18/21 18:28 12/18/21 18:28 12/18/21 18:28 Oxygen Delivery Method Room Air Weight: 86.4 kg Body Mass Index (BMI) 29.0 Intake & Output: Intake and Output for Last 24 Hours 12/17/21 12/17/21 12/18/21 00:59 23:59 23:59 Intake Total 1525 / 1525 Output Total 2825 / 2825 Balance -1300 / -1300 Medical Nutrition Assessment Dietitian: Malnutrition Criteria Met Start: 12/04/21 14:18 Freq: Status: Active Protocol: Document 12/18/21 12:54 [facility] (Rec: 12/18/21 12:55 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 PLUMBING DESIGNER following; no diet order at this time. 2. Continue daily weights, trend closely. 3. When restart TF rec consider change lower fiber/ osmolality formula - Vital AF 1.2 - (start at 100 ml 5x/day w/ 40 ml water flush before and after each feeding to provide 600 yohana / 37 gm pro/ 805 ml free water/day, as pt tolerates increase to 200 ml 5x/day w/ 50 ml water flush before and after each feeding to provide 1200 yohana/ 75 gm pro / 1811 ml free water/day; Goal of 300 ml bolus 5x/day w/ 60 ml h2o flush before and after each feed to provide ~ 1800 yohana/ 112 gm pro/ 1816 ml free water/day). Lab / Micro Data Result Diagrams: 12/18/21 07:50 12/18/21 07:50 Labs: Laboratory Results - last 24 hr 12/16/21 06:55: Diff Path Review Reviewed 12/17/21 22:55: POC Glucose 85 12/17/21 : Diff Path Review Reviewed 12/18/21 05:49: POC Glucose 78 12/18/21 07:50: WBC 5.3, RBC 2.65 L, Hgb 7.3 L, Hct 22.5 L, MCV 84.9, MCH 27.5, MCHC 32.4, RDW Std Deviation 50.7 H, RDW Coeff of Rita 16.7 H, Plt Count 76 L, MPV 10.5, Neut % (Auto) Not Reportable, Absolute Neuts (auto) 4.5, Absolute Lymphs (auto) 0.42 L, Total Counted 100, Neutrophils % (Manual) 84 H, Band Neutrophils % 1, Lymphocytes % (Manual) 8 L, Monocytes % (Manual) 2, Metamyelocytes % 5 H, Myelocytes % 5 H, Diff Path Review Reviewed, Platelet Estimate SLT DEC, Hypochromasia 1+, Anisocytosis 1+ 12/18/21 07:50: Sodium 137, Potassium 3.8, Chloride 107, Carbon Dioxide 23.0, Anion Gap 7, BUN 22 H, Creatinine 1.47 H, Estim Creat Clear Calc 37.41, Est GFR (MDRD) Af Amer 45 L, Est GFR (MDRD) Non-Af 37 L, BUN/Creatinine Ratio 15.0, Glucose 74, Calcium 8.2 L 12/18/21 11:35: POC Glucose 69 L 12/18/21 13:38: POC Glucose 76 12/18/21 14:48: POC Glucose 162 H 12/18/21 18:06: POC Glucose 110 H Micro: Microbiology 12/11/21 Unknown Tissue - Other Fungal Smear - Final 12/11/21 Unknown Tissue - Other Gram Stain - Final 12/11/21 Unknown Tissue - Other Wound Culture - Final Staphylococcus aureus Staphylococcus epidermidis Lactobacillus plantarum 10/31/22 Unknown Tissue - Other Anaerobic Culture - Final No anaerobic bacteria isolated. 12/07/21 16:55 Stool Stool Occult Blood (DONNELL) - Final Occult Blood Positive 12/03/21 14:35 Nasal Secretion SARS-CoV-2 Antigen (Rapid) - Final Rhythm Strip Rhythm Strip: Sinus Tach Rate: 108 Ectopy: None Physical Exam Narrative Physical exam: General: Alert, Oriented to self cooperative, appears frail, confused HEENT: Atraumatic Oral: Moist Mucosa Neck: Supple Lungs: Diminished to auscultation Cardiovascular: HS I+II, regular, no murmurs Abdomen: Abdominal binder in place, PEG tube in the epigastric region, bowel Sounds Present, Soft, Non Tender Extremities: No edema Skin: No rashes, No breakdown Neurological: Grossly intact Psych/Mental Status: Appropriate Assessment & Plan Assessment/Plan (1) Acute kidney injury: (2) Toxic metabolic encephalopathy: (3) Severe malnutrition: (4) Thrombocytopenia: PLAN: Plan 1. Acute toxic/metabolic encephalopathy, likely secondary to polypharmacy, appears to be stable 2. JACOB secondary to severe dehydration, prerenal/obstructive Appears to be stable Will trend 3. Abnormal renal ultrasound suggestive of mass posterior to bladder Outpatient follow-up with urology 4. 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 Heparin-induced platelet antibody pending; Hem/onc consulted Status post 1 unit of packed RBC on 12/11/2021 Patient was on bilvarudin; currently on Xarelto 5. Anemia, acute on chronic, history of anemia of chronic disease Status post 1 unit of packed RBC in this admission Hb is currently 7.3 Will continue to trend 6. Debility, s/p 2 recent hip surgeries for replacement then revision secondary to recurrent dislocations PT/OT to evaluate and treat 7. Acute left lower extremity DVT, continue on Xarelto 8. History of rheumatoid arthritis, continue home hydroxychloroquine Continue to hold leflunomide until platelet count improvement Tramadol prn 9. Relative hypotension, continue to hold metoprolol 10. Severe depression, continue Duloxetine, risperdal 11. Severe malnutrition, s/p PEG tube, tube feeds held 12. Hypoglycemia, secondary to poor po intake Will treat with D50 and D10 infusion 13. DVT PPx- On Xarelto Charges/Coding Visit Charges Inpatient E&M: 81878 Subs Hosp L3
--- NOTE | 2021-12-18 19:40 | NURSING ---
Charting reviewed with Elsa Reddy RN
[2021-12-19] VITALS (11 sets, daily range): BP systolic 95–118; BP diastolic 62–83; PULSE 75–94; RESP 14–18; TEMP 35.9–36.6; O2SAT 95–100
[2021-12-19 00:06] LABS: Bedside Glucose 109 mg/dL (74-106)
[2021-12-19] MEDS: Dextrose 10%-Water 250 ML 40 ML IV ×4 (00:53→21:32)
[2021-12-19] MEDS: Levothyroxine 150 MCG Tablet PO (03:22)
[2021-12-19] MEDS: Menthol/Lanolin/Calamine/Znox 113 GM Tube 1 APPLIC TOPICAL ×3 (06:45→21:30)
[2021-12-19 07:15] LABS: Bedside Glucose 105 mg/dL (74-106)
[2021-12-19 07:26] LABS: Hematocrit 24.1 % (37-47); Mean Corp Hgb Conc 33.2 g/dL (32-36); Mean Corpuscular Hgb 28.3 pg (27.0-32.0); Mean Corpuscular Volume 85.2 fL (81-99); Mean Platelet Vol. 10.4 fl (6.2-12.0); POSITIVE COUNT YES; POSITIVE DIFFERENTIAL YES; POSITIVE MORPHOLOGY YES; Platelet Count 76 K/mm3 (150-450); RBC Distribution Width CV 16.9 % (11.6-14.6); RBC Distribution Width SD 51.6 fl (35.1-43.9); Red Blood Count 2.83 M/mm3 (4.2-5.4)
[2021-12-19 07:55] LABS: ALB/GLOB Ratio 0.6 RATIO (0.9-2.4); AST(SGOT) 16 U/L (15-37); Alanine Aminotransfer ALT/SGPT 14 U/L (13-56); Albumin, Serum 1.9 g/dL (3.2-5.0); Alkaline Phosphatase 70 U/L (45-117); Anion Gap 6 (5-15); BUN 20 mg/dL (7-18); BUN/Creat Ratio 13.7 RATIO (10-20); Chloride 108 mmol/L (98-107); Creatinine, Serum 1.46 mg/dL (0.55-1.02); EST Glomerular Filtration Rate 37 mL/min (>60); Est Glom Filt Rate - Afr Amer 45 mL/min (>60); Estimated Creatinine Clearance 37.66 ml/min; Glucose 99 mg/dL (74-106); Potassium 3.4 mmol/L (3.5-5.1); Protein, Total 4.9 g/dL (6.4-8.2); Sodium Level 139 mmol/L (136-145)
[2021-12-19 08:18] LABS: Differential Indicated MANUAL DIFF
--- NOTE | 2021-12-19 08:30 | NURSING ---
Called Travis in pharmacy regarding K-Riders. Patient has a PICC line, requesting to give patient two 20meq bags of potassium versus four 10meq bags of potassium. Patient is on continuous telemetry monitoring.
[2021-12-19 08:33] LABS: Magnesium 2.2 mg/dL (1.6-2.6)
[2021-12-19 08:34] LABS: Phosphorus 4.3 mg/dL (2.5-4.9)
[2021-12-19 09:18] LABS: Lymphocyte 6 % (19-41); Monocyte 4 % (0-10); Myelocyte 4 % (0-0); Neutrophil-Band 2 % (0-5); Neutrophil-Segmented 84 % (47-70); Red Cell Morphology NORM C+C NORMAL (NORM C&C); Total Cells Counted 100 (MANUAL DIFF)
[2021-12-19 09:19] LABS: Platelet Estimate MOD DEC (ADEQ)
[2021-12-19 09:21] LABS: Absolute Neutrophil Count 4.3 X10^3/uL (2.0-7.7)
--- NOTE | 2021-12-19 10:17 | CM.ED ---
SW Note SW was updated by Tamara [facility] social services analyst. Patient is not medically ready today. ISAÍAS spoke to Edgar at [facility] and provided updated that patient is not medically ready today. Roxanna FLORENTINO
[2021-12-19] MEDS: Potassium Chloride 20mEq/100mL 20 MEQ/100 ML IV.SOLN. 100 MEQ IV BOLUS ×2 (10:41→12:15)
[2021-12-19] MEDS: Hydroxychloroquine 200 MG Tablet PO ×2 (10:59→18:46)
[2021-12-19] MEDS: RisperiDONE 1 MG Tablet PO (10:59)
[2021-12-19] MEDS: Cephalexin 500 MG Capsule GT ×2 (10:59→21:31)
[2021-12-19] MEDS: Jevity 1.5. 1,000 ML Bottle 100 ML GT ×4 (11:00→21:29)
[2021-12-19] MEDS: Petrolatum 33% Tube 1 APPLIC TOPICAL ×2 (11:00→21:29)
--- NOTE | 2021-12-19 13:02 | PN.RENAL_ITS ---
Subjective Subjective no new events Objective Data Objective Data Vital Signs: Vital Signs Temp Pulse Resp BP Pulse Ox O2 Del Method 96.7 F L 85 14 107/81 H 100 Room Air 12/19/21 10:00 12/19/21 10:00 12/19/21 10:00 12/19/21 10:00 12/19/21 10:00 12/19/21 10:00 Oxygen Delivery Method Room Air Weight: 86 kg Body Mass Index (BMI) 29.0 Intake & Output: Intake and Output for Last 24 Hours 12/17/21 12/18/21 12/19/21 23:59 23:59 23:59 Intake Total 1775 / 2025 1688 / 1688 Output Total 2825 / 3325 950 / 950 Balance -1050 / -1300 738 / 738 Medical Nutrition Assessment Dietitian: Malnutrition Criteria Met Start: 12/04/21 14:18 Freq: Status: Active Protocol: Document 12/18/21 12:54 GENE (Rec: 12/18/21 12:55 SLA [id number]) Nutrition Malnutrition Evidence of Malnutrition Exists Yes Malnutrition (severe): Chronic Evidenced By Suboptimal Energy Intake ( Severe),Weight Loss (Severe) Clinical Problem Altered GI Function Etiology related to questionable tf intolerance Signs/Symptoms as evidenced by issues with diarrhea x 3 days Status Active Problem Chronic Disease or Condition Related Malnutrition Etiology severe, chronic malnutrition r /t inadequate energy intake d/ t depression Signs/Symptoms as evidenced by unintentional wt loss of 18.7kg/20% 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 MS SQL DEVELOPER following; no diet order at this time. 2. Continue daily weights, trend closely. 3. When restart TF rec consider change lower fiber/ osmolality formula - Vital AF 1.2 - (start at 100 ml 5x/day w/ 40 ml water flush before and after each feeding to provide 600 yohana / 37 gm pro/ 805 ml free water/day, as pt tolerates increase to 200 ml 5x/day w/ 50 ml water flush before and after each feeding to provide 1200 yohana/ 75 gm pro / 1811 ml free water/day; Goal of 300 ml bolus 5x/day w/ 60 ml h2o flush before and after each feed to provide ~ 1800 yohana/ 112 gm pro/ 1816 ml free water/day). Lab / Micro Data Result Diagrams: 12/19/21 06:05 12/19/21 06:05 Labs: Laboratory Results - last 24 hr 12/18/21 13:38: POC Glucose 76 12/18/21 14:48: POC Glucose 162 H 12/18/21 18:06: POC Glucose 110 H 12/18/21 23:15: POC Glucose 109 H 12/19/21 06:05: WBC 5.0, RBC 2.83 L, Hgb 8.0 L, Hct 24.1 L, MCV 85.2, MCH 28.3, MCHC 33.2, RDW Std Deviation 51.6 H, RDW Coeff of Rita 16.9 H, Plt Count 76 L, MPV 10.4, Neut % (Auto) Not Reportable, Absolute Neuts (auto) 4.3, Absolute Lymphs (auto) 0.30 L, Total Counted 100, Neutrophils % (Manual) 84 H, Band Neutrophils % 2, Lymphocytes % (Manual) 6 L, Monocytes % (Manual) 4, Myelocytes % 4 H, Diff Path Review June foll, Platelet Estimate MOD DEC, RBC Morphology NORM C+C 12/19/21 06:05: Sodium 139, Potassium 3.4 L, Chloride 108 H, Carbon Dioxide 25.0, Anion Gap 6, BUN 20 H, Creatinine 1.46 H, Estim Creat Clear Calc 37.66, Est GFR (MDRD) Af Amer 45 L, Est GFR (MDRD) Non-Af 37 L, BUN/Creatinine Ratio 13.7, Glucose 99, Calcium 8.0 L, Total Bilirubin 0.30, AST 16, ALT 14, Alkaline Phosphatase 70, Total Protein 4.9 L, Albumin 1.9 L, Globulin 3.0, Albumin/Globulin Ratio 0.6 L 12/19/21 06:05: Phosphorus 4.3 12/19/21 06:05: Magnesium 2.2 12/19/21 06:48: POC Glucose 105 Micro: Microbiology 12/11/21 Unknown Tissue - Other Fungal Smear - Final 12/11/21 Unknown Tissue - Other Gram Stain - Final 12/11/21 Unknown Tissue - Other Wound Culture - Final Staphylococcus aureus Staphylococcus epidermidis Lactobacillus plantarum 12/11/21 Unknown Tissue - Other Anaerobic Culture - Final No anaerobic bacteria isolated. 12/07/21 16:55 Stool Stool Occult Blood (DONNELL) - Final Occult Blood Positive 12/03/21 14:35 Nasal Secretion SARS-CoV-2 Antigen (Rapid) - Final Rhythm Strip Rhythm Strip: Sinus Tach Rate: 108 Ectopy: None Physical Exam Narrative no obvious distress no pallor no icterus no JVD s1s2 no murmurs lungs clear abdomen soft no organomegaly no edema no cyanosis tavarez + Assessment & Plan Assessment/Plan (1) CKD (chronic kidney disease) stage 3, GFR 30-59 ml/min: (2) Acute kidney injury: PLAN: Creatinine is similar to yesterday. Urine output is okay. Renal ultrasound showed possible mass around the bladder but the follow-up CT scan abdomen did not show anything abnormal. It seems she has mild right-sided hydronephrosis, no intervention planned for now. Typically unilateral hydronephrosis does not cause acute renal failure. Urine analysis does show some cells but this is a Tavarez sample. No further work-up needed since creatinine is stable. Initially there was some concern for TTP but she was evaluated by hematology and this diagnosis was unlikely Hyperkalemia better
--- NOTE | 2021-12-19 13:09 | PN.HOSP_ITS ---
Subjective Subjective Follow-up on dysphagia/toxic metabolic encephalopathy/JACOB/severe malnutrition: Patient was seen and examined.? Patient is less lethargic. No diarrhea since yesterday. She has been started on tube feeds today. Objective Data Objective Data Vital Signs: Vital Signs Temp Pulse Resp BP Pulse Ox O2 Del Method 96.7 F L 85 14 107/81 H 100 Room Air 12/19/21 10:00 12/19/21 10:00 12/19/21 10:00 12/19/21 10:00 12/19/21 10:00 12/19/21 10:00 Oxygen Delivery Method Room Air Weight: 86 kg Body Mass Index (BMI) 29.0 Intake & Output: Intake and Output for Last 24 Hours 12/17/21 12/18/21 12/19/21 23:59 23:59 23:59 Intake Total 1775 / 5 1688 / 1688 Output Total 2825 / 3325 950 / 950 Balance -1050 / -1300 738 / 738 Medical Nutrition Assessment Dietitian: Malnutrition Criteria Met Start: 12/04/21 14:18 Freq: Status: Active Protocol: Document 12/18/21 12:54 GENE (Rec: 12/18/21 12:55 SLA [id number]) Nutrition Malnutrition Evidence of Malnutrition Exists Yes Malnutrition (severe): Chronic Evidenced By Suboptimal Energy Intake ( Severe),Weight Loss (Severe) Clinical Problem Altered GI Function Etiology related to questionable tf intolerance Signs/Symptoms as evidenced by issues with diarrhea x 3 days Status Active Problem Chronic Disease or Condition Related Malnutrition Etiology severe, chronic malnutrition r /t inadequate energy intake d/ t depression Signs/Symptoms as evidenced by unintentional wt loss of 18.7kg/20% 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 TRACK HOE OPERATOR following; no diet order at this time. 2. Continue daily weights, trend closely. 3. When restart TF rec consider change lower fiber/ osmolality formula - Vital AF 1.2 - (start at 100 ml 5x/day w/ 40 ml water flush before and after each feeding to provide 600 yohana / 37 gm pro/ 805 ml free water/day, as pt tolerates increase to 200 ml 5x/day w/ 50 ml water flush before and after each feeding to provide 1200 yohana/ 75 gm pro / 1811 ml free water/day; Goal of 300 ml bolus 5x/day w/ 60 ml h2o flush before and after each feed to provide ~ 1800 yohana/ 112 gm pro/ 1816 ml free water/day). Lab / Micro Data Result Diagrams: 12/19/21 06:05 12/19/21 06:05 Labs: Laboratory Results - last 24 hr 12/18/21 13:38: POC Glucose 76 12/18/21 14:48: POC Glucose 162 H 12/18/21 18:06: POC Glucose 110 H 12/18/21 23:15: POC Glucose 109 H 12/19/21 06:05: WBC 5.0, RBC 2.83 L, Hgb 8.0 L, Hct 24.1 L, MCV 85.2, MCH 28.3, MCHC 33.2, RDW Std Deviation 51.6 H, RDW Coeff of Rita 16.9 H, Plt Count 76 L, MPV 10.4, Neut % (Auto) Not Reportable, Absolute Neuts (auto) 4.3, Absolute Lymphs (auto) 0.30 L, Total Counted 100, Neutrophils % (Manual) 84 H, Band Neutrophils % 2, Lymphocytes % (Manual) 6 L, Monocytes % (Manual) 4, Myelocytes % 4 H, Diff Path Review May foll, Platelet Estimate MOD DEC, RBC Morphology NORM C+C 12/19/21 06:05: Sodium 139, Potassium 3.4 L, Chloride 108 H, Carbon Dioxide 25.0, Anion Gap 6, BUN 20 H, Creatinine 1.46 H, Estim Creat Clear Calc 37.66, Est GFR (MDRD) Af Amer 45 L, Est GFR (MDRD) Non-Af 37 L, BUN/Creatinine Ratio 13.7, Glucose 99, Calcium 8.0 L, Total Bilirubin 0.30, AST 16, ALT 14, Alkaline Phosphatase 70, Total Protein 4.9 L, Albumin 1.9 L, Globulin 3.0, Albumin/Globulin Ratio 0.6 L 12/19/21 06:05: Phosphorus 4.3 12/19/21 06:05: Magnesium 2.2 12/19/21 06:48: POC Glucose 105 Micro: Microbiology 12/11/21 Unknown Tissue - Other Fungal Smear - Final 12/11/21 Unknown Tissue - Other Gram Stain - Final 12/11/21 Unknown Tissue - Other Wound Culture - Final Staphylococcus aureus Staphylococcus epidermidis Lactobacillus plantarum 12/11/21 Unknown Tissue - Other Anaerobic Culture - Final No anaerobic bacteria isolated. 12/07/21 16:55 Stool Stool Occult Blood (DONNELL) - Final Occult Blood Positive 12/03/21 14:35 Nasal Secretion SARS-CoV-2 Antigen (Rapid) - Final Rhythm Strip Rhythm Strip: Sinus Tach Rate: 108 Ectopy: None Physical Exam Narrative Physical exam: General: Alert, Oriented to self cooperative, appears frail, confused HEENT: Atraumatic Oral: Moist Mucosa Neck: Supple Lungs: Diminished to auscultation Cardiovascular: HS I+II, regular, no murmurs Abdomen: Abdominal binder in place, PEG tube in the epigastric region, bowel Sounds Present, Soft, Non Tender Extremities: No edema Skin: No rashes, No breakdown Neurological: Grossly intact Psych/Mental Status: Appropriate Assessment & Plan Assessment/Plan (1) Acute kidney injury: (2) Toxic metabolic encephalopathy: (3) Severe malnutrition: (4) Thrombocytopenia: PLAN: Plan 1. Acute toxic/metabolic encephalopathy, likely secondary to polypharmacy, appears to be stable 2. JACOB on CKD stage IIIb secondary to severe dehydration, prerenal/obstructive Appears to be stable Will trend 3. Abnormal renal ultrasound suggestive of mass posterior to bladder Not seen on CT abd/pelvis Outpatient follow-up with urology 4. 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 Heparin-induced platelet antibody pending; Hem/onc consulted Status post 1 unit of packed RBC on 12/11/2021 Off bilvarudin; continue on Xarelto 5. Anemia, acute on chronic, history of anemia of chronic disease Status post 1 unit of packed RBC in this admission Hb is currently 8.0 Will continue to trend 6. Debility, s/p 2 recent hip surgeries for replacement then revision secondary to recurrent dislocations PT/OT to evaluate and treat 7. Acute left lower extremity DVT, continue on Xarelto 8. History of rheumatoid arthritis, continue home hydroxychloroquine Continue to hold leflunomide until platelet count improvement Tramadol prn 9. Relative hypotension, continue to hold metoprolol 10. Severe depression, continue Duloxetine, Risperdal 11. Severe malnutrition, s/p PEG tube, tube feeds being resumed 12. Hypoglycemia, secondary to poor po intake, resolved Will resume tube feeds DC D10 infusion 13. DVT PPx- On Xarelto Charges/Coding Visit Charges Inpatient E&M: 28991 [facility] L3
[2021-12-19 13:40] LABS: Pathologist Review Reviewed
[2021-12-19 14:36] LABS: Bedside Glucose 143 mg/dL (74-106)
[2021-12-19] MEDS: Insulin Lispro 100 UNIT/ML INSULN.PEN SC (18:44)
[2021-12-19] MEDS: Rivaroxaban 20 MG Tablet GT (18:46)
--- NOTE | 2021-12-19 18:51 | NURSING ---
Charting reviewed with Elsa Reddy RN
--- NOTE | 2021-12-19 19:11 | NURSING ---
Charting reviewed with Elsa Reddy RN
[2021-12-19 19:26] LABS: Bedside Glucose 159 mg/dL (74-106)
[2021-12-20] VITALS (13 sets, daily range): BP systolic 87–123; BP diastolic 56–104; PULSE 78–98; RESP 14–18; TEMP 36.6–37.7; O2SAT 93–100
[2021-12-20 01:05] LABS: Bedside Glucose 142 mg/dL (74-106)
[2021-12-20] MEDS: Dextrose 10%-Water 250 ML 40 ML IV (03:26)
[2021-12-20 05:26] LABS: Hemoglobin 8.1 g/dL (12.0-15.0); Mean Corp Hgb Conc 32.4 g/dL (32-36); Mean Corpuscular Hgb 27.7 pg (27.0-32.0); Mean Corpuscular Volume 85.6 fL (81-99); Mean Platelet Vol. 11.1 fl (6.2-12.0); POSITIVE COUNT YES; POSITIVE DIFFERENTIAL YES; POSITIVE MORPHOLOGY YES; Platelet Count 81 K/mm3 (150-450); RBC Distribution Width CV 17.4 % (11.6-14.6); RBC Distribution Width SD 52.5 fl (35.1-43.9); Red Blood Count 2.92 M/mm3 (4.2-5.4); White Blood Count 5.3 K/mm3 (4.4-11.0)
[2021-12-20] MEDS: Levothyroxine 150 MCG Tablet PO (05:26)
[2021-12-20] MEDS: Jevity 1.5. 1,000 ML Bottle 100 ML GT ×2 (05:26→10:10)
[2021-12-20 05:28] LABS: Differential Indicated MANUAL DIFF
[2021-12-20 05:57] LABS: ALB/GLOB Ratio 0.7 RATIO (0.9-2.4); AST(SGOT) 15 U/L (15-37); Alanine Aminotransfer ALT/SGPT 11 U/L (13-56); Albumin, Serum 1.9 g/dL (3.2-5.0); Alkaline Phosphatase 71 U/L (45-117); Anion Gap 7 (5-15); BUN 18 mg/dL (7-18); BUN/Creat Ratio 14.2 RATIO (10-20); Calcium,Total 7.8 mg/dL (8.5-10.1); Chloride 106 mmol/L (98-107); Creatinine, Serum 1.27 mg/dL (0.55-1.02); EST Glomerular Filtration Rate 44 mL/min (>60); Est Glom Filt Rate - Afr Amer 53 mL/min (>60); Globulin 2.9 g/dL (2.2-4.2); Glucose 133 mg/dL (74-106); Potassium 3.6 mmol/L (3.5-5.1); Protein, Total 4.8 g/dL (6.4-8.2); Sodium Level 136 mmol/L (136-145)
[2021-12-20 06:06] LABS: Lymphocyte 7 % (19-41); Monocyte 9 % (0-10); Myelocyte 5 % (0-0); Neutrophil-Band 2 % (0-5); Neutrophil-Segmented 77 % (47-70); Total Cells Counted 100 (MANUAL DIFF)
[2021-12-20 06:07] LABS: Platelet Estimate MOD DEC (ADEQ)
[2021-12-20 06:08] LABS: Absolute Neutrophil Count 4.2 X10^3/uL (2.0-7.7); Anisocytosis RARE; Microcytosis RARE; Neutrophil # 4.16 X10^3/uL (2.7-7.7)
[2021-12-20 06:09] LABS: Absolute Lymphocyte Count 0.37 X10^3/uL (0.83-4.51); Lymphocyte # 0.37 X10^3/ul (0.83-4.51)
[2021-12-20] MEDS: Insulin Lispro 100 UNIT/ML INSULN.PEN SC ×3 (06:41→21:52)
[2021-12-20] MEDS: Menthol/Lanolin/Calamine/Znox 113 GM Tube 1 APPLIC TOPICAL ×3 (06:42→20:37)
[2021-12-20] MEDS: Petrolatum 33% Tube 1 APPLIC TOPICAL ×2 (10:09→20:37)
[2021-12-20] MEDS: Hydroxychloroquine 200 MG Tablet PO ×2 (10:09→16:47)
[2021-12-20] MEDS: RisperiDONE 1 MG Tablet PO ×2 (10:09→20:32)
[2021-12-20] MEDS: Iron Polysaccharide Complex 150 MG CAPSULE PO (10:09)
[2021-12-20] MEDS: Cephalexin 500 MG Capsule GT ×2 (10:09→20:44)
--- NOTE | 2021-12-20 10:10 | WOUNDNOTE ---
In to reassess the redness to perineum, thighs, and groin. There is slight improvement noted. plan to continue with the calmoseptine as needed. will consider Triad if skin worsens but it does appear to be improved.
[2021-12-20 11:11] LABS: Bedside Glucose 195 mg/dL (74-106)
[2021-12-20 11:21] LABS: Bedside Glucose 139 mg/dL (74-106)
--- NOTE | 2021-12-20 12:53 | CASEMGMT ---
ISAÍAS called [facility] and spoke with Kemi. ISAÍAS let Kemi know that patient is not at her goal with tube feeds yet. Kemi said patient would need to be at her goal. ISAÍAS let her know patient will likely be ready tomorrow. Kemi asked ISAÍAS to re-fax everything on patient since it has been so long since referral was made. ISAÍAS re-faxed everything to [facility]. Tamara Estrada TEAM FOREMAN STEFF
[2021-12-20] MEDS: Jevity 1.5. 1,000 ML Bottle 170 ML GT (13:23)
--- NOTE | 2021-12-20 14:38 | PCM.PN.HOSP ---
Subjective Subjective Follow-up on dysphagia/toxic metabolic encephalopathy/JACOB/severe malnutrition: Patient was seen and examined.? No diarrhea. A little more interactive today. Tube feeds ongoing. Objective Data Objective Data Vital Signs: Vital Signs Temp Pulse Resp BP Pulse Ox O2 Del Method 93.7 F L 86 14 117/79 100 Room Air 12/20/21 11:30 12/20/21 13:38 12/20/21 13:38 12/20/21 13:38 12/20/21 13:38 12/20/21 13:40 Oxygen Delivery Method Room Air Weight: 85.1 kg Body Mass Index (BMI) 29.0 Intake & Output: Intake and Output for Last 24 Hours 12/18/21 12/19/21 12/20/21 23:59 23:59 23:59 Intake Total 177 / 5 2518 / 2518 1006.67 / 1006.67 Output Total 2825 / 3325 2750 / 2750 600 / 600 Balance -1050 / -1300 -232 / -232 406.67 / 406.67 Medical Nutrition Assessment Dietitian: Malnutrition Criteria Met Start: 12/04/21 14:18 Freq: Status: Active Protocol: Document 12/18/21 12:54 SLA (Rec: 12/18/21 12:55 SLA [id number]) Nutrition Malnutrition Evidence of Malnutrition Exists Yes Malnutrition (severe): Chronic Evidenced By Suboptimal Energy Intake ( Severe),Weight Loss (Severe) Clinical Problem Altered GI Function Etiology related to questionable tf intolerance Signs/Symptoms as evidenced by issues with diarrhea x 3 days Status Active Problem Chronic Disease or Condition Related Malnutrition Etiology severe, chronic malnutrition r /t inadequate energy intake d/ t depression Signs/Symptoms as evidenced by unintentional wt loss of 18.7kg/20% 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 SENIOR TELECOMMUNICATIONS ENGINEER following; no diet order at this time. 2. Continue daily weights, trend closely. 3. When restart TF rec consider change lower fiber/ osmolality formula - Vital AF 1.2 - (start at 100 ml 5x/day w/ 40 ml water flush before and after each feeding to provide 600 yohana / 37 gm pro/ 805 ml free water/day, as pt tolerates increase to 200 ml 5x/day w/ 50 ml water flush before and after each feeding to provide 1200 yohana/ 75 gm pro / 1811 ml free water/day; Goal of 300 ml bolus 5x/day w/ 60 ml h2o flush before and after each feed to provide ~ 1800 yohana/ 112 gm pro/ 1816 ml free water/day). Lab / Micro Data Result Diagrams: 12/20/21 04:27 12/20/21 04:27 Labs: Laboratory Results - last 24 hr 12/19/21 18:40: POC Glucose 159 H 12/19/21 21:34: POC Glucose 142 H 12/20/21 04:27: WBC 5.3, RBC 2.92 L, Hgb 8.1 L, Hct 25.0 L, MCV 85.6, MCH 27.7, MCHC 32.4, RDW Std Deviation 52.5 H, RDW Coeff of Rita 17.4 H, Plt Count 81 L, MPV 11.1, Neut % (Auto) Not Reportable, Absolute Neuts (auto) 4.2, Absolute Lymphs (auto) 0.37 L, Total Counted 100, Neutrophils % (Manual) 77 H, Band Neutrophils % 2, Lymphocytes % (Manual) 7 L, Monocytes % (Manual) 9, Myelocytes % 5 H, Diff Path Review May foll, Platelet Estimate MOD DEC, Anisocytosis RARE, Microcytosis RARE 12/20/21 04:27: Sodium 136, Potassium 3.6, Chloride 106, Carbon Dioxide 23.0, Anion Gap 7, BUN 18, Creatinine 1.27 H, Estim Creat Clear Calc 43.30, Est GFR (MDRD) Af Amer 53 L, Est GFR (MDRD) Non-Af 44 L, BUN/Creatinine Ratio 14.2, Glucose 133 H, Calcium 7.8 L, Total Bilirubin 0.30, AST 15, ALT 11 L, Alkaline Phosphatase 71, Total Protein 4.8 L, Albumin 1.9 L, Globulin 2.9, Albumin/Globulin Ratio 0.7 L 12/20/21 06:40: POC Glucose 195 H 12/20/21 11:01: POC Glucose 139 H Micro: Microbiology 12/11/21 Unknown Tissue - Other Fungal Smear - Final 12/11/21 Unknown Tissue - Other Gram Stain - Final 12/11/21 Unknown Tissue - Other Wound Culture - Final Staphylococcus aureus Staphylococcus epidermidis Lactobacillus plantarum 12/11/21 Unknown Tissue - Other Anaerobic Culture - Final No anaerobic bacteria isolated. 12/07/21 16:55 Stool Stool Occult Blood (DONNELL) - Final Occult Blood Positive 12/03/21 14:35 Nasal Secretion SARS-CoV-2 Antigen (Rapid) - Final Rhythm Strip Rhythm Strip: Sinus Tach Rate: 108 Ectopy: None Physical Exam Narrative Physical exam: General: Alert, Oriented to self, cooperative, appears frail, confused HEENT: Atraumatic Oral: Moist Mucosa Neck: Supple Lungs: Diminished to auscultation Cardiovascular: HS I+II, regular, no murmurs Abdomen: Abdominal binder in place, PEG tube in the epigastric region, bowel Sounds Present, Soft, Non Tender Extremities: No edema Skin: No rashes, No breakdown Neurological: Grossly intact Psych/Mental Status: Appropriate Assessment & Plan Assessment/Plan (1) Acute kidney injury: (2) Toxic metabolic encephalopathy: (3) Severe malnutrition: (4) Thrombocytopenia: PLAN: Plan 1. Acute toxic/metabolic encephalopathy, likely secondary to polypharmacy, appears to be stable 2. JACOB on CKD stage IIIb secondary to severe dehydration, prerenal/obstructive Appears to be stable 3. Abnormal renal ultrasound suggestive of mass posterior to bladder Not seen on CT abd/pelvis Outpatient follow-up with urology 4. 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 Heparin-induced platelet antibody pending; Hem/onc consulted Status post 1 unit of packed RBC on 12/11/2021 Off bilvarudin; continue on Xarelto 5. Anemia, acute on chronic, history of anemia of chronic disease Status post 1 unit of packed RBC in this admission Hb is currently 8.0 Will continue to trend 6. Debility, s/p 2 recent hip surgeries for replacement then revision secondary to recurrent dislocations PT/OT to evaluate and treat 7. Acute left lower extremity DVT, continue on Xarelto 8. History of rheumatoid arthritis, continue home hydroxychloroquine Continue to hold leflunomide until platelet count improvement Tramadol prn 9. Relative hypotension, continue to hold metoprolol 10. Severe depression, continue Duloxetine, Risperdal 11. Severe malnutrition, s/p PEG tube, tube feeds ongoing 12. Hypoglycemia, secondary to poor po intake, resolved 13. DVT PPx- On Xarelto Charges/Coding Visit Charges Inpatient E&M: 01136 Subs Hosp L2
--- NOTE | 2021-12-20 15:39 | CHAPLAIN ---
Type of Pastoral Visit ___ Initial Visit _x__ Follow-up Visit ___ On-call Visit ___ General Patient Visit ___ Spiritual Assessment ___ Family Conference ___ Bereavement ___ Rapid Response ___ Code Blue ___ Other (describe below) Pastoral Care Referral From ___ Patient _x__ Family ___ Nurse ___ Physician ___ Certified Energy Manager ___ Electron Tube Assembler ___ Other (describe below) Sacrament/Intervention _x__ Active listening ___ Anointing ___ Hinduism ___ Bereavement ___ Communion ___ Kristy exploration ___ ___ Life review _x__ Prayer ___ Reconciliation ___ Sacrament of Sick _x__ Supportive presence ___ Wedding ___ Other (describe below) Pastoral Comments follow up to patient that has been seen several times in previous and current admissions; pt is slumped in bed and does not respond to her name; spouse is at bedside and affirms the decline of patient and the plan to move her to a facility; spouse agrees that prayer would be appreciated by patient; after prayer the pt did open her eyes and move her hand but that was the extent of her response at this time; offered support to spouse and ongoing care as desired
--- NOTE | 2021-12-20 15:47 | CASEMGMT ---
ISAÍAS spoke with Vilma at [facility] and answered her questions. She will need a COVID test day of d/c. ISAÍAS told her patient will likely be ready tomorrow. Tamara Estrada HOTEL OR MOTEL CLEANING SUPERVISOR STEFF
[2021-12-20] MEDS: Jevity 1.5. 1,000 ML Bottle 240 ML GT ×2 (16:47→20:36)
[2021-12-20] MEDS: Rivaroxaban 20 MG Tablet GT (16:47)
[2021-12-20] MEDS: Tamsulosin HCl 0.4 MG Capsule PO (16:47)
[2021-12-20 17:20] LABS: Bedside Glucose 156 mg/dL (74-106)
[2021-12-20 22:15] LABS: Bedside Glucose 151 mg/dL (74-106)
[2021-12-21] VITALS (8 sets, daily range): BP systolic 97–106; BP diastolic 50–72; PULSE 80–92; RESP 15–18; TEMP 36.3–36.8; O2SAT 94–100
[2021-12-21 04:34] LABS: Hematocrit 23.6 % (37-47); Mean Corp Hgb Conc 33.9 g/dL (32-36); Mean Corpuscular Volume 85.5 fL (81-99); Mean Platelet Vol. 10.1 fl (6.2-12.0); POSITIVE COUNT YES; POSITIVE DIFFERENTIAL YES; POSITIVE MORPHOLOGY YES; Platelet Count 99 K/mm3 (150-450); RBC Distribution Width CV 17.9 % (11.6-14.6); RBC Distribution Width SD 54.4 fl (35.1-43.9); Red Blood Count 2.76 M/mm3 (4.2-5.4); White Blood Count 4.8 K/mm3 (4.4-11.0)
[2021-12-21 04:37] LABS: Differential Indicated MANUAL DIFF
[2021-12-21 04:56] LABS: ALB/GLOB Ratio 0.7 RATIO (0.9-2.4); AST(SGOT) 13 U/L (15-37); Alanine Aminotransfer ALT/SGPT 13 U/L (13-56); Albumin, Serum 1.9 g/dL (3.2-5.0); Alkaline Phosphatase 71 U/L (45-117); Anion Gap 6 (5-15); BUN 18 mg/dL (7-18); BUN/Creat Ratio 14.9 RATIO (10-20); Calcium,Total 8.1 mg/dL (8.5-10.1); Chloride 109 mmol/L (98-107); Creatinine, Serum 1.21 mg/dL (0.55-1.02); EST Glomerular Filtration Rate 46 mL/min (>60); Est Glom Filt Rate - Afr Amer 56 mL/min (>60); Estimated Creatinine Clearance 45.45 ml/min; Globulin 2.9 g/dL (2.2-4.2); Glucose 106 mg/dL (74-106); Potassium 3.8 mmol/L (3.5-5.1); Protein, Total 4.8 g/dL (6.4-8.2); Sodium Level 141 mmol/L (136-145)
[2021-12-21 05:11] LABS: Lymphocyte 12 % (19-41); Monocyte 7 % (0-10); Myelocyte 9 % (0-0); Neutrophil-Band 2 % (0-5); Neutrophil-Segmented 70 % (47-70); Platelet Estimate SLT DEC (ADEQ); Total Cells Counted 100 (MANUAL DIFF)
[2021-12-21 05:12] LABS: Acanthocytes RARE; Anisocytosis 1+; Hypochromasia 1+
[2021-12-21 05:13] LABS: Absolute Lymphocyte Count 0.57 X10^3/uL (0.83-4.51); Absolute Neutrophil Count 3.4 X10^3/uL (2.0-7.7); Lymphocyte # 0.57 X10^3/ul (0.83-4.51); Neutrophil # 3.43 X10^3/uL (2.7-7.7)
[2021-12-21] MEDS: Jevity 1.5. 1,000 ML Bottle 240 ML GT ×5 (05:33→23:08)
[2021-12-21] MEDS: Menthol/Lanolin/Calamine/Znox 113 GM Tube 1 APPLIC TOPICAL ×3 (05:33→22:50)
[2021-12-21] MEDS: Levothyroxine 150 MCG Tablet PO (05:33)
[2021-12-21] MEDS: Insulin Lispro 100 UNIT/ML INSULN.PEN SC (06:35)
[2021-12-21 07:20] LABS: Bedside Glucose 183 mg/dL (74-106)
[2021-12-21] MEDS: Iron Polysaccharide Complex 150 MG CAPSULE PO (09:11)
[2021-12-21] MEDS: Petrolatum 33% Tube 1 APPLIC TOPICAL ×2 (09:11→22:50)
[2021-12-21] MEDS: RisperiDONE 1 MG Tablet PO ×2 (09:12→23:08)
[2021-12-21] MEDS: Cephalexin 500 MG Capsule GT (09:13)
[2021-12-21] MEDS: Hydroxychloroquine 200 MG Tablet PO ×2 (09:13→18:01)
[2021-12-21 09:41] LABS: Pathologist Review Reviewed
--- NOTE | 2021-12-21 10:14 | CASEMGMT ---
ISAÍAS received a call from Vilma at [facility]. Vilma asked about the follow up study for DVT's. ISAÍAS let Vilma know the physician said we do not do follow ups as the patient is on treating medication for the DVTs. Vilma also asked for Healthcare Power of Regional Education Manager, however [facility] does not have these documents and patient has a who would be her decision maker. Vilma said they would need a COVID test, HCPOA, and 's note indicating patient is medically cleared. Tamara Estrada FISH FROG OR OYSTER FARMER STEFF
--- NOTE | 2021-12-21 10:20 | CASEMGMT ---
ISAÍAS received a voice mail from Vilma at [facility]. The physician is requesting nurses notes, updated physicians notes, and psych notes. ISAÍAS sent physician's notes from the already, but will re-send them. ISAÍAS sent the psych assessment that was done earlier in patient's visit which SW also sent previously. ISAÍAS faxed physician's notes from and , handoff communication from RN, and Roxanna's psych assessment. Tamara ARTIS
[2021-12-21 12:11] LABS: Bedside Glucose 141 mg/dL (74-106)
--- NOTE | 2021-12-21 13:02 | DCINST_ITS ---
Discharge Instructions Diet Discharge Diet: - (Tube feeds) Activity Discharge Activity: Return to Normal Activity Follow Up Care Test Results: Test results from this visit will be discussed in further detail at your follow- up appointment, if applicable. Discharge Plan Admission Admit Date/Time: 12/03/21 14:46 Primary Reason for Your Visit: Acute encephalopathy Attending Provider: Tiny Rose Primary Care Provider: Billy Church Consulting Providers: Glynn Martin ; Le Muller ; Doroteo Richey ; Jean Sanchez ; Yocasta Rueda ; José Rodriguez ; Ovi Galvan ; Bin Anand ; Mario Camarena ; Ingrid Huerta NP ; Argenis Foy ; Sharona Du ; Memo Mclaughlin Discharge Orders/Prescriptions Prescriptions: New risperidone 1 mg Tablet 1 mg PO BID Qty: 0 0RF menthol-zinc oxide [Calmoseptine] 0.44-20.6 % Ointment 1 applic topical TID Qty: 0 0RF Protocol: *Topical Application Instructions APPLICATION INSTRUCTIONS: apply to excoriated groin and thighs Jevity 1.5 Mitchell 0.06 gram-1.5 kcal/mL Liquid 240 ml G-tube 5X/DAY Qty: 0 0RF Xarelto 20 mg Tablet 20 mg G-tube DINNER Qty: 0 0RF tamsulosin 0.4 mg Capsule 0.4 mg PO DAILY@1730 Qty: 0 0RF loperamide [Imodium A-D] 2 mg capsule 2 mg PO Q4H PRN (Reason: loose stool) Qty: 10 0RF Rx Instructions: administer after each loose stool until symptoms controlled; do not exceed 8 mg per 24 hrs Continued hydroxychloroquine 200 MG tablet 200 mg PO BID Label Comments: RHEUMATOID ARTHRITIS Changed polysaccharide iron complex [Ferrex 150] 150 mg iron capsule 150 mg feeding tube DAILY 30 Days Qty: 30 0RF leflunomide 20 MG tablet 20 mg feeding tube DAILY Qty: 30 0RF Label Comments: RHEUMATOID ARTHRITIS tramadol 50 mg tablet 50 mg feeding tube Q6H PRN (Reason: pain) 7 Days Qty: 28 0RF acetaminophen 500 mg Tablet 1,000 mg feeding tube Q8 MDD 4,000 mg PRN (Reason: fever or pain) Qty: 0 0RF levothyroxine 150 mcg tablet 150 mcg feeding tube DAILY Qty: 30 1RF Discontinued loratadine-pseudoephedrine [Claritin-D 24 Hour] 10-240 mg tablet extended release 24 hr 1 tab PO PRN PRN (Reason: Sinus Symptoms) cholecalciferol (vitamin D3) 2,000 UNIT tablet 2,000 unit PO DAILY Label Comments: SUPPLEMENT metoprolol tartrate 50 mg tablet 25 mg PO DAILY duloxetine 60 mg Capsule,Delayed Release(Dr/Ec) 60 mg PO DAILY Qty: 30 0RF meclizine 25 mg tablet 25 mg PO Q8H PRN PRN (Reason: Dizziness) Qty: 20 0RF Referrals / Follow Up: Glynn Martin MD [Med Staff - Active Staff] - Within 2 Weeks Yocasta Rueda MD [Med Staff - Active Staff] - 03/29/22 1:30 pm Billy Church MD [Primary Care Provider] - Within 1 Week Disposition Disposition (needs filled in before D/C Order can be placed): [facility] Unit
--- NOTE | 2021-12-21 13:20 | PCM.DC.SUM ---
Providers Date of Admission: 12/03/21 Date of Discharge: 12/22/21 Primary Care Physician: Dr. Billy Church MD Consultations 12/06/21 07:34 Consult: Urology Routine Consulting Provider: Glynn Martin Reason for Consult: possible bladder mass/R hydro EMERGENT Consult: No MD Notified: Yes Date Notified: 12/06/21 Time Notified: 11:14 Method of Notification: Verbal 12/06/21 14:39 Consult: General Surgery Routine Consulting Provider: Le Muller Reason for Consult: PEG tube EMERGENT Consult: No Notified: Yes Date Notified: 12/06/21 Time Notified: 14:39 Method of Notification: Verbal 12/07/21 12:52 Consult: Oncology/Hematology Routine Consulting Provider: [facility] Reason for Consult: Thrombocytopenia EMERGENT Consult: No Notified: Yes Date Notified: 12/07/21 Time Notified: 12:52 Method of Notification: Text 12/13/21 11:18 Consult: Nephrology Routine Consulting Provider: Sharona Du Reason for Consult: Anuria, fluid overload, extremeties swollen EMERGENT Consult: No Notified: Yes Date Notified: 12/13/21 Time Notified: 11:19 Method of Notification: Verbal 12/17/21 07:49 Consult: Onc/Wound/job hand Routine Comment: Reason for Consult:: evaluation of redness, rash to coccyx, thighs Comments:: currently getting calmoseptine Reason For Visit: SEVERE DEHYDRATION Diagnosis Discharge Diagnosis (1) Acute kidney injury: Status: Acute Code(s): N17.9 - Acute kidney failure, unspecified (2) Toxic metabolic encephalopathy: Status: Acute Code(s): G92.8 - Other toxic encephalopathy (3) Severe malnutrition: Status: Acute Code(s): E43 - Unspecified severe protein-calorie malnutrition (4) Thrombocytopenia: Status: Acute Code(s): D69.6 - Thrombocytopenia, unspecified Plan 1. Acute onset of delusions/major depression 2. Acute toxic/metabolic encephalopathy, resolved 2. JACOB on CKD stage IIIb 3. Abnormal renal ultrasound suggestive of mass posterior to bladder 4. Acute thrombocytopenia 5. Anemia, acute on chronic, history of anemia of chronic disease 6. Debility, s/p 2 recent hip surgeries 7. Acute left lower extremity DVT 8. History of rheumatoid arthritis 9. Relative hypotension 10. Severe depression 11. Severe malnutrition, s/p PEG tube 12. Hypoglycemia, secondary to poor po intake, resolved Medications at Discharge Home Medications hydroxychloroquine 200 mg tablet 200 mg PO BID Arthritis 02/19/13 acetaminophen 500 mg tablet 1,000 mg feeding tube Q8 PRN fever or pain #0 tabs 12/21/21 lactose-reduced food with fiber 0.06 gram-1.5 kcal/mL oral liquid (Jevity 1.5 Yhoana) 240 ml G-tube 5X/DAY #0 mL 12/21/21 leflunomide 20 mg tablet 20 mg feeding tube DAILY R.A. #30 tabs 12/21/21 levothyroxine 150 mcg tablet 150 mcg feeding tube DAILY THYROID #30 tabs 12/21/21 loperamide 2 mg capsule (Imodium A-D) 2 mg PO Q4H PRN loose stool #10 caps 12/21/21 menthol 0.44 %-zinc oxide 20.6 % topical ointment (Calmoseptine) 1 applic topical TID #0 grams 12/21/21 polysaccharide iron complex 150 mg iron capsule (Ferrex) 150 mg feeding tube DAILY supplement 30 days #30 caps 12/21/21 risperidone 1 mg tablet 1 mg PO BID #0 tabs 12/21/21 rivaroxaban 20 mg tablet (Xarelto) 20 mg G-tube DINNER #0 tabs 12/21/21 tamsulosin 0.4 mg capsule 0.4 mg PO DAILY@1730 #0 caps 12/21/21 tramadol 50 mg tablet 50 mg feeding tube Q6H PRN pain 7 days #28 tabs 12/21/21 Hospital Course Operations None Procedures Peg tube placement Summary of Care Provided Minutes Spent on Discharge: 40 Hospital Course: 71-year-old female with recent history of left hip fracture status post repair, multiple dislocations and revision in September 2021, who presented to the emergency department on 12/03/21 with altered mental status and delusion. Patient was reportedly having a change in mental status and speaking to her mom and saying things with no realization that her mother was a significantly long time ago. She was recently started on meclizine after emergency room visit for dizziness. She also was reportedly having decreased oral intake for about 1 to 2 weeks prior to admission. In the emergency room, patient's vitals were stable. She had evidence of severe dehydration on exam. She had evidence also of acute kidney injury, anion gap metabolic acidosis secondary to starvation ketosis, hypokalemia. Her EKG had shown normal sinus rhythm with new T wave inversions in the lateral leads. She was admitted to the progressive care unit and started on IV fluids with improvement in her overall chemistry. Patient repeatedly refuses to eat, appeared very depressed. Patient's cardiac enzymes were negative. 2D echo showed normal LV function with EF of 55%, stage I diastolic dysfunction. She had evidence of electrolyte imbalances with hypokalemia, hypomagnesemia. hypophosphatemia which were all replaced. CT scan of the abdomen pelvis that showed a 2 mm right renal calculus. Patient was started on Flomax. Renal ultrasound showed possible mass in the bladder. Urology follow-up was recommended in 2 weeks. Blanc catheter was kept in situ. Nephrology was also consulted Nutrition at follow-up patient in the hospital for severe protein calorie malnutrition. Patient still had significant behaviors with refusal to eat. Patient did not want an NG tube placed. She was started on Marinol with no improvement. General surgery was consulted for PEG tube placement after discussing with the patient's . Doppler ultrasound of the left lower extremity showed acute DVT. Heparin drip was started. Within 24 hours, patient's platelet and hemoglobin dropped during the hospital stay. There was a suspicion of HIT. Hematology oncology was consulted patient was started on bilvalirudin. Patient underwent EGD that showed esophagitis, biopsy showed MSSA and MAC lactobacillus. Patient was started on Keflex. Completed 7 days of Keflex. Patient received PEG tube placement on 12/11/2021 after 1 unit of platelets were transfused. HIT antibody came back negative. Patient was recommended to be switched to Xarelto. Patient did well on Xarelto. No evidence of bleeding from the PEG tube site or in this stools. Patient had some diarrhea on 12/16/21. It was thought to be secondary to Kayexalate. She had a fecal management system in place. Tube feeds were momentarily stopped. Diarrhea improved. Tube feeds were then resumed and slowly increased to her requirements. Stool for C. difficile was negative. Patient was given Imodium. She can have Imodium as needed bowel movements more than 4 times a day. She will have some loose stools whilst on tube feeds. On the day of discharge, patient hemoglobin was found to be 7.2. There was no evidence of bleeding. Likely secondary to hemodilution. Patient did receive 1 unit of packed RBC. Patient did not have any transfusion related issues. She should get repeat CBCD and CMP within 3 days. PATIENT IS MEDICALLY STABLE FOR DISCHARGE TO ACUTE PSYCH UNIT FOR FURTHER WORK-UP AND MANAGEMENT OF SEVERE MAJOR DEPRESSION/DELUSIONS WITH REFUSAL TO EAT Physical Exam Narrative Physical exam: General: Alert, Oriented to self, cooperative, appears frail, confused HEENT: Atraumatic Oral: Moist Mucosa Neck: Supple Lungs: Diminished to auscultation Cardiovascular: HS I+II, regular, no murmurs Abdomen: Abdominal binder in place, PEG tube in the epigastric region, bowel Sounds Present, Soft, Non Tender Extremities: Bilateral leg edema +1 Skin: No rashes, No breakdown Neurological: Grossly intact Psych/Mental Status: Appropriate Medical Records Data Medical Nutrition Assessment Dietitian: Malnutrition Criteria Met Start: 12/04/21 14:18 Freq: Status: Active Protocol: Document 12/18/21 12:54 [facility] (Rec: 12/18/21 12:55 [facility] [id number]) Nutrition Malnutrition Evidence of Malnutrition Exists Yes Malnutrition (severe): Chronic Evidenced By Suboptimal Energy Intake ( Severe),Weight Loss (Severe) Clinical Problem Altered GI Function Etiology related to questionable tf intolerance Signs/Symptoms as evidenced by issues with diarrhea x 3 days Status Active Problem Chronic Disease or Condition Related Malnutrition Etiology severe, chronic malnutrition r /t inadequate energy intake d/ t depression Signs/Symptoms as evidenced by unintentional 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 MATERIAL EXPEDITOR following; no diet order at this time. 2. Continue daily weights, trend closely. 3. When restart TF rec consider change lower fiber/ osmolality formula - Vital AF 1.2 - (start at 100 ml 5x/day w/ 40 ml water flush before and after each feeding to provide 600 yohana / 37 gm pro/ 805 ml free water/day, as pt tolerates increase to 200 ml 5x/day w/ 50 ml water flush before and after each feeding to provide 1200 yohana/ 75 gm pro / 1811 ml free water/day; Goal of 300 ml bolus 5x/day w/ 60 ml h2o flush before and after each feed to provide ~ 1800 yohana/ 112 gm pro/ 1816 ml free water/day). Weight / BMI Weight Weight: 84.5 kg Body Mass Index (BMI) 29.0 ABG / Lab / Microbiology Data Result Diagrams: 12/22/21 11:05 12/22/21 06:25 Laboratory: Laboratory Results - last 24 hr 12/20/21 04:27: Diff Path Review Reviewed 12/20/21 16:44: POC Glucose 156 H 12/20/21 21:51: POC Glucose 151 H 12/21/21 04:11: WBC 4.8, RBC 2.76 L, Hgb 8.0 L, Hct 23.6 L, MCV 85.5, MCH 29.0, MCHC 33.9, RDW Std Deviation 54.4 H, RDW Coeff of Rita 17.9 H, Plt Count 99 L, MPV 10.1, Neut % (Auto) Not Reportable, Absolute Neuts (auto) 3.4, Absolute Lymphs (auto) 0.57 L, Total Counted 100, Neutrophils % (Manual) 70, Band Neutrophils % 2, Lymphocytes % (Manual) 12 L, Monocytes % (Manual) 7, Myelocytes % 9 H, Diff Path Review May foll, Platelet Estimate SLT DEC, Hypochromasia 1+, Anisocytosis 1+, Acanthocytes (Spur) RARE 12/21/21 04:11: Sodium 141, Potassium 3.8, Chloride 109 H, Carbon Dioxide 26.0, Anion Gap 6, BUN 18, Creatinine 1.21 H, Estim Creat Clear Calc 45.45, Est GFR (MDRD) Af Amer 56 L, Est GFR (MDRD) Non-Af 46 L, BUN/Creatinine Ratio 14.9, Glucose 106, Calcium 8.1 L, Total Bilirubin 0.30, AST 13 L, ALT 13, Alkaline Phosphatase 71, Total Protein 4.8 L, Albumin 1.9 L, Globulin 2.9, Albumin/Globulin Ratio 0.7 L 12/21/21 06:34: POC Glucose 183 H 12/21/21 11:44: POC Glucose 141 H Microbiology: Microbiology 12/11/21 Unknown Tissue - Other Fungal Smear - Final 12/11/21 Unknown Tissue - Other Gram Stain - Final 12/11/21 Unknown Tissue - Other Wound Culture - Final Staphylococcus aureus Staphylococcus epidermidis Lactobacillus plantarum 12/11/21 Unknown Tissue - Other Anaerobic Culture - Final No anaerobic bacteria isolated. 12/07/21 16:55 Stool Stool Occult Blood (DONNELL) - Final Occult Blood Positive 12/03/21 14:35 Nasal Secretion SARS-CoV-2 Antigen (Rapid) - Final D/C Instructions Discharge Diet: - (Tube feeds) Meaningful Use Info Meaningful Use Diagnoses (Choose all that apply): None applicable Discharge Plan Admission Admit Date/Time: 12/03/21 14:46 Primary Reason for Your Visit: Acute encephalopathy Attending Provider: Tiny Rose Primary Care Provider: Billy Church Consulting Providers: Glynn Martin ; Le Muller ; Doroteo Richey ; Jean Sanchez ; Yocasta Rueda ; José Rodriguez ; Ovi Galvan ; Bin Anand ; Mario Camarena ; Ingrid Huerta NP ; Argenis Foy ; Sharona Du ; Memo Mclaughlin Discharge Orders/Prescriptions Prescriptions: New risperidone 1 mg Tablet 1 mg PO BID Qty: 0 0RF menthol-zinc oxide [Calmoseptine] 0.44-20.6 % Ointment 1 applic topical TID Qty: 0 0RF Protocol: *Topical Application Instructions APPLICATION INSTRUCTIONS: apply to excoriated groin and thighs Jevity 1.5 Yohana 0.06 gram-1.5 kcal/mL Liquid 240 ml G-tube 5X/DAY Qty: 0 0RF Xarelto 20 mg Tablet 20 mg G-tube DINNER Qty: 0 0RF tamsulosin 0.4 mg Capsule 0.4 mg PO DAILY@1730 Qty: 0 0RF loperamide [Imodium A-D] 2 mg capsule 2 mg PO Q4H PRN (Reason: loose stool) Qty: 10 0RF Rx Instructions: administer after each loose stool until symptoms controlled; do not exceed 8 mg per 24 hrs Continued hydroxychloroquine 200 MG tablet 200 mg PO BID Label Comments: RHEUMATOID ARTHRITIS Changed polysaccharide iron complex [Ferrex 150] 150 mg iron capsule 150 mg feeding tube DAILY 30 Days Qty: 30 0RF leflunomide 20 MG tablet 20 mg feeding tube DAILY Qty: 30 0RF Label Comments: RHEUMATOID ARTHRITIS tramadol 50 mg tablet 50 mg feeding tube Q6H PRN (Reason: pain) 7 Days Qty: 28 0RF acetaminophen 500 mg Tablet 1,000 mg feeding tube Q8 MDD 4,000 mg PRN (Reason: fever or pain) Qty: 0 0RF levothyroxine 150 mcg tablet 150 mcg feeding tube DAILY Qty: 30 1RF Discontinued loratadine-pseudoephedrine [Claritin-D 24 Hour] 10-240 mg tablet extended release 24 hr 1 tab PO PRN PRN (Reason: Sinus Symptoms) cholecalciferol (vitamin D3) 2,000 UNIT tablet 2,000 unit PO DAILY Label Comments: SUPPLEMENT metoprolol tartrate 50 mg tablet 25 mg PO DAILY duloxetine 60 mg Capsule,Delayed Release(Dr/Ec) 60 mg PO DAILY Qty: 30 0RF meclizine 25 mg tablet 25 mg PO Q8H PRN PRN (Reason: Dizziness) Qty: 20 0RF Referrals / Follow Up: Glynn Martin MD [Med Staff - Active Staff] - Within 2 Weeks Yocasta Rueda MD [Med Staff - Active Staff] - 03/29/22 1:30 pm Billy Church MD [Primary Care Provider] - Within 1 Week Disposition Disposition (needs filled in before D/C Order can be placed): [facility] Charges/Coding Visit Charges Inpatient E&M: 27475 Disch Hosp
--- NOTE | 2021-12-21 15:04 | CM.ED ---
ISAÍAS Note ISAÍAS called Edgar at [facility] and advised that patient is not being discharged today. ISAÍAS updated CAROLYN Mcdonald, that [facility] has been updated. Roxanna FLORENTINO
[2021-12-21 15:39] LABS: Pathologist Review Reviewed
--- NOTE | 2021-12-21 17:22 | PN.HOSP_ITS ---
Subjective Subjective Follow-up on dysphagia/toxic metabolic encephalopathy/JACOB/severe malnutrition: Patient was seen and examined.? Patient reportedly had 2 large bowel movements. She is currently receiving tube feeds at full strength. No other acute events overnight. Objective Data Objective Data Vital Signs: Vital Signs Temp Pulse Resp BP Pulse Ox O2 Del Method 97.3 F L 83 18 106/64 94 Room Air 12/21/21 14:34 12/21/21 14:34 12/21/21 14:34 12/21/21 14:34 12/21/21 14:34 12/21/21 14:34 Oxygen Delivery Method Room Air Weight: 84.5 kg Body Mass Index (BMI) 29.0 Intake & Output: Intake and Output for Last 24 Hours 12/19/21 12/20/21 12/21/21 23:59 23:59 23:59 Intake Total 2518 / 2518 1506.67 / 1506.67 880 / 880 Output Total 2750 / 2750 2100 / 2100 800 / 800 Balance -232 / -232 -593.33 / -593.33 80 / 80 Medical Nutrition Assessment Dietitian: Malnutrition Criteria Met Start: 12/04/21 14:18 Freq: Status: Active Protocol: Document 12/18/21 12:54 [facility] (Rec: 12/18/21 12:55 [facility] [id number]) Nutrition Malnutrition Evidence of Malnutrition Exists Yes Malnutrition (severe): Chronic Evidenced By Suboptimal Energy Intake ( Severe),Weight Loss (Severe) Clinical Problem Altered GI Function Etiology related to questionable tf intolerance Signs/Symptoms as evidenced by issues with diarrhea x 3 days Status Active Problem Chronic Disease or Condition Related Malnutrition Etiology severe, chronic malnutrition r /t inadequate energy intake d/ t depression Signs/Symptoms as evidenced by 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 POST ACUTE CARE NURSE PRACTITIONER following; no diet order at this time. 2. Continue daily weights, trend closely. 3. When restart TF rec consider change lower fiber/ osmolality formula - Vital AF 1.2 - (start at 100 ml 5x/day w/ 40 ml water flush before and after each feeding to provide 600 yohana / 37 gm pro/ 805 ml free water/day, as pt tolerates increase to 200 ml 5x/day w/ 50 ml water flush before and after each feeding to provide 1200 yohana/ 75 gm pro / 1811 ml free water/day; Goal of 300 ml bolus 5x/day w/ 60 ml h2o flush before and after each feed to provide ~ 1800 yohana/ 112 gm pro/ 1816 ml free water/day). Lab / Micro Data Result Diagrams: 12/21/21 04:11 12/21/21 04:11 Labs: Laboratory Results - last 24 hr 12/20/21 04:27: Diff Path Review Reviewed 12/20/21 21:51: POC Glucose 151 H 12/21/21 04:11: WBC 4.8, RBC 2.76 L, Hgb 8.0 L, Hct 23.6 L, MCV 85.5, MCH 29.0, MCHC 33.9, RDW Std Deviation 54.4 H, RDW Coeff of Rita 17.9 H, Plt Count 99 L, MPV 10.1, Neut % (Auto) Not Reportable, Absolute Neuts (auto) 3.4, Absolute Lymphs (auto) 0.57 L, Total Counted 100, Neutrophils % (Manual) 70, Band Neutrophils % 2, Lymphocytes % (Manual) 12 L, Monocytes % (Manual) 7, Myelocytes % 9 H, Diff Path Review Reviewed, Platelet Estimate SLT DEC, Hypochromasia 1+, Anisocytosis 1+, Acanthocytes (Spur) RARE 12/21/21 04:11: Sodium 141, Potassium 3.8, Chloride 109 H, Carbon Dioxide 26.0, Anion Gap 6, BUN 18, Creatinine 1.21 H, Estim Creat Clear Calc 45.45, Est GFR (MDRD) Af Amer 56 L, Est GFR (MDRD) Non-Af 46 L, BUN/Creatinine Ratio 14.9, Glucose 106, Calcium 8.1 L, Total Bilirubin 0.30, AST 13 L, ALT 13, Alkaline Phosphatase 71, Total Protein 4.8 L, Albumin 1.9 L, Globulin 2.9, Albumin/Globulin Ratio 0.7 L 12/21/21 06:34: POC Glucose 183 H 12/21/21 11:44: POC Glucose 141 H Micro: Microbiology 12/11/21 Unknown Tissue - Other Fungal Smear - Final 12/11/21 Unknown Tissue - Other Gram Stain - Final 12/11/21 Unknown Tissue - Other Wound Culture - Final Staphylococcus aureus Staphylococcus epidermidis Lactobacillus plantarum 12/11/21 Unknown Tissue - Other Anaerobic Culture - Final No anaerobic bacteria isolated. 12/07/21 16:55 Stool Stool Occult Blood (DONNELL) - Final Occult Blood Positive 12/03/21 14:35 Nasal Secretion SARS-CoV-2 Antigen (Rapid) - Final Rhythm Strip Rhythm Strip: Sinus Tach Rate: 108 Ectopy: None Physical Exam Narrative Physical exam: General: Alert, Oriented to self, cooperative, appears frail, confused HEENT: Atraumatic Oral: Moist Mucosa Neck: Supple Lungs: Diminished to auscultation Cardiovascular: HS I+II, regular, no murmurs Abdomen: Abdominal binder in place, PEG tube in the epigastric region, bowel Sounds Present, Soft, Non Tender Extremities: No edema Skin: No rashes, No breakdown Neurological: Grossly intact Psych/Mental Status: Appropriate Assessment & Plan Assessment/Plan (1) Acute kidney injury: (2) Toxic metabolic encephalopathy: (3) Severe malnutrition: (4) Thrombocytopenia: PLAN: Plan 1. Acute toxic/metabolic encephalopathy, likely secondary to polypharmacy, appears to be stable Patient with severe depression, refusal to eat, appropriate for discharge to inpatient psych unit. 2. Diarrhea, recurrent, patient restarted on tube feeds, Will check stool for enteric panel/C. difficile 3. JACOB on CKD stage IIIb secondary to severe dehydration, prerenal/obstructive Appears to be stable 4. Abnormal renal ultrasound suggestive of mass posterior to bladder Not seen on CT abd/pelvis Outpatient follow-up with urology 5. 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 Heparin-induced platelet antibody negative; Hem/onc consulted Status post 1 unit of packed RBC on 12/11/2021 Off bilvarudin; continue on Xarelto 6.? Anemia, acute on chronic, history of anemia of chronic disease Status post 1 unit of packed RBC in this admission Hb is currently 8.0 Will continue to trend 7. Debility, s/p 2 recent hip surgeries for replacement then revision secondary to recurrent dislocations PT/OT to evaluate and treat 8. Acute left lower extremity DVT, continue on Xarelto 9. History of rheumatoid arthritis, continue home hydroxychloroquine Continue to hold leflunomide until platelet count improvement Tramadol prn 10. Relative hypotension, continue to hold metoprolol 11. Severe depression, continue Duloxetine, Risperdal 12. Severe malnutrition, s/p PEG tube, tube feeds ongoing 13. Hypoglycemia, secondary to poor po intake, resolved Charges/Coding Visit Charges Inpatient E&M: 29528 Subs Hosp L3
[2021-12-21] MEDS: Tamsulosin HCl 0.4 MG Capsule PO (18:01)
[2021-12-21] MEDS: Rivaroxaban 20 MG Tablet GT (18:01)
[2021-12-21 18:31] LABS: Bedside Glucose 121 mg/dL (74-106)
[2021-12-22] VITALS (15 sets, daily range): BP systolic 88–117; BP diastolic 57–73; PULSE 88–97; RESP 16–18; TEMP 36.6–37.3; O2SAT 97–100
[2021-12-22 00:45] LABS: Bedside Glucose 110 mg/dL (74-106)
[2021-12-22] MEDS: Menthol/Lanolin/Calamine/Znox 113 GM Tube 1 APPLIC TOPICAL ×3 (06:35→20:55)
[2021-12-22] MEDS: Jevity 1.5. 1,000 ML Bottle 240 ML GT ×5 (06:35→20:57)
[2021-12-22] MEDS: Levothyroxine 150 MCG Tablet PO (06:36)
[2021-12-22 06:46] LABS: Hematocrit 22.7 % (37-47); Hemoglobin 7.2 g/dL (12.0-15.0); Mean Corp Hgb Conc 31.7 g/dL (32-36); Mean Corpuscular Hgb 27.6 pg (27.0-32.0); Mean Platelet Vol. 10.2 fl (6.2-12.0); POSITIVE COUNT YES; POSITIVE DIFFERENTIAL YES; POSITIVE MORPHOLOGY YES; Platelet Count 102 K/mm3 (150-450); RBC Distribution Width CV 18.3 % (11.6-14.6); Red Blood Count 2.61 M/mm3 (4.2-5.4); White Blood Count 4.9 K/mm3 (4.4-11.0)
[2021-12-22 06:48] LABS: Differential Indicated MANUAL DIFF
[2021-12-22 07:02] LABS: Lymphocyte 5 % (19-41); Monocyte 11 % (0-10); Myelocyte 5 % (0-0); Neutrophil-Band 3 % (0-5); Neutrophil-Segmented 76 % (47-70); Total Cells Counted 100 (MANUAL DIFF)
[2021-12-22 07:03] LABS: Anisocytosis 1+; Hypochromasia 2+; Microcytosis 1+; Platelet Estimate SLT DEC (ADEQ)
[2021-12-22 07:04] LABS: Absolute Lymphocyte Count 0.25 X10^3/uL (0.83-4.51); Absolute Neutrophil Count 3.9 X10^3/uL (2.0-7.7); Lymphocyte # 0.25 X10^3/ul (0.83-4.51); Neutrophil # 3.89 X10^3/uL (2.7-7.7)
[2021-12-22 07:11] LABS: Bedside Glucose 98 mg/dL (74-106)
[2021-12-22 08:00] LABS: ALB/GLOB Ratio 0.6 RATIO (0.9-2.4); AST(SGOT) 19 U/L (15-37); Alanine Aminotransfer ALT/SGPT 12 U/L (13-56); Albumin, Serum 1.8 g/dL (3.2-5.0); Alkaline Phosphatase 65 U/L (45-117); Anion Gap 7 (5-15); BUN 19 mg/dL (7-18); BUN/Creat Ratio 16.4 RATIO (10-20); Calcium,Total 8.2 mg/dL (8.5-10.1); Chloride 110 mmol/L (98-107); Creatinine, Serum 1.16 mg/dL (0.55-1.02); EST Glomerular Filtration Rate 49 mL/min (>60); Est Glom Filt Rate - Afr Amer 59 mL/min (>60); Estimated Creatinine Clearance 47.41 ml/min; Globulin 2.9 g/dL (2.2-4.2); Glucose 96 mg/dL (74-106); Potassium 4.3 mmol/L (3.5-5.1); Protein, Total 4.7 g/dL (6.4-8.2); Sodium Level 141 mmol/L (136-145)
[2021-12-22 09:40] LABS: Pathologist Review Reviewed
[2021-12-22] MEDS: Loperamide 2 MG Capsule 4 MG PO (09:48)
[2021-12-22] MEDS: RisperiDONE 1 MG Tablet PO (09:49)
[2021-12-22] MEDS: Iron Polysaccharide Complex 150 MG CAPSULE PO (09:49)
[2021-12-22] MEDS: Hydroxychloroquine 200 MG Tablet PO ×2 (09:49→18:02)
[2021-12-22] MEDS: Petrolatum 33% Tube 1 APPLIC TOPICAL ×2 (09:49→20:56)
[2021-12-22] MEDS: Insulin Lispro 100 UNIT/ML INSULN.PEN SC ×2 (11:12→16:32)
--- NOTE | 2021-12-22 11:30 | CASEMGMT ---
ISAÍAS spoke with patient's letting him know about [facility]. ISAÍAS provided him with name, phone number, address, and visiting hours. ISAÍAS Mcknight is assisting ISAÍAS with patient's transfer to [facility]. Tamara ARTIS
[2021-12-22 11:33] LABS: Hematocrit 23.2 % (37-47); Hemoglobin 7.3 g/dL (12.0-15.0)
--- NOTE | 2021-12-22 11:48 | CM.ED ---
Addendum entered by Roxanna Holm 12/22/21 19:47: ISAÍAS called Crisis and spoke to Tiana. Updated her that this insurance underwriter sales is requesting that crisis call [facility] in the morning to check on the status of patient and her acceptance. ISAÍAS provided PCU phone number for Tiana to update staff. ISAÍAS faxed medically clear documentation regarding patient to Crisis. SIAÍAS sent daily report with update to staff regarding patient. Roxanna FLORENTINO Addendum entered by Roxanna Holm 12/22/21 19:22: ISAÍAS called [facility] 2 more times and left voice mail for staff to call this insurance underwriter sales. ISAÍAS went to patient's room. Patient's was in the room. He voiced that he is willing to sign consent for treatment for patient. ISAÍAS indicated that at this time we are planning for patient to still be transferred tonight but waiting on MD's acceptance. ISAÍAS called Rosemarie at [facility]. She said that the handoff stated that the MD will take a look at it in the morning. Rosemarie stated that if the is HCPOA he can sign for voluntary consent for treatment otherwise patient will need to come via pink slip. ISAÍAS spoke to patient's . He voiced he does not know if he has HCPOA and thus since no HCPOA is in the chart he CAN NOT sign voluntary consent for treatment. Kings slip will need to be completed for patient. ISAÍAS updated supervisor esters and emulsifiers Jamison regarding patient and that she will not be discharged tonight. ISAÍAS paged economics professor for Crisis. Roxanna FLORENTINO Original Note: ISAÍAS Note ISAÍAS was advised by Tamara Michaud that plan is for the patient to have her blood drawn and then they will check for hemoglobin and if she needs blood it will be given to her but patient will be discharged today. Tamara said that they will also do a covid test for patient. ISAÍAS called Edgar at [facility] and advised that the plan for patient today is for the patient to be discharged. ISAÍAS advised that staff is checking for hemoglobin and if she needs blood it will be given to her but she will be discharged. Edgar will leave message for RN and have RN call this insurance underwriter sales. ISAÍAS had not heard back from RN at [facility] so social media executive called Gali at [facility]. She said a note yesterday 12/21/21 stated that the MD is requesting psych and nursing notes. Isaías reviewed charting and ISAÍAS Michaud sent nursing notes and handoff to [facility] on 12/21/21. ISAÍAS called Gali at [facility] and advised her that patient's nurses notes were sent on 12/21/21 and Gali said that she will review the notes to ensure that they have everything needed. She will call if additional information is needed. Roxanna FLORENTINO
[2021-12-22 11:56] LABS: Bedside Glucose 155 mg/dL (74-106)
[2021-12-22] MEDS: Furosemide 40 MG/4 ML Vial IV (12:45)
[2021-12-22 17:01] LABS: Bedside Glucose 153 mg/dL (74-106)
[2021-12-22 17:36] LABS: Hemoglobin 8.2 g/dL (12.0-15.0)
[2021-12-22] MEDS: 0.9% Saline Lock 10 ML Syringe IV (17:57)
[2021-12-22] MEDS: Rivaroxaban 20 MG Tablet GT (18:02)
[2021-12-22] MEDS: Tamsulosin HCl 0.4 MG Capsule PO (18:02)
[2021-12-22] MEDS: Nystatin Powder 15gm Bottle 1 APPLIC TOPICAL (22:22)
[2021-12-22 22:35] LABS: Bedside Glucose 108 mg/dL (74-106)
[2021-12-23] VITALS (8 sets, daily range): BP systolic 88–96; BP diastolic 55–57; PULSE 89–98; RESP 16–18; TEMP 36.6–36.8; O2SAT 98–100
[2021-12-23 00:31] LABS: M R Staph aureus DNA By PCR Negative (Negative); Probe Check PASS; Specimen Processing Control PASS; Staph aureus DNA By PCR NEGATIVE (Negative)
[2021-12-23 02:33] LABS: Magnesium 2.1 mg/dL (1.6-2.6)
[2021-12-23] MEDS: Jevity 1.5. 1,000 ML Bottle 240 ML GT ×3 (05:00→14:14)
[2021-12-23] MEDS: Menthol/Lanolin/Calamine/Znox 113 GM Tube 1 APPLIC TOPICAL ×2 (05:00→14:13)
[2021-12-23] MEDS: Nystatin Powder 15gm Bottle 1 APPLIC TOPICAL ×2 (05:00→14:13)
[2021-12-23 07:16] LABS: Bedside Glucose 129 mg/dL (74-106)
[2021-12-23] MEDS: Petrolatum 33% Tube 1 APPLIC TOPICAL (08:56)
--- NOTE | 2021-12-23 09:07 | CASEMGMT ---
Addendum entered by Juliana Valenzuela 12/23/21 12:51: Social Work Pt's called to inquire if pt is going to go to [facility] today. SW explained will find out if we have heard anything, as [facility] is to let us know. SW called PCU, she spoke w/[facility], the facility now is requesting more testing, it is yet to be determined if they will take pt. SW called the back, let him know that the physician at [facility] is requesting more information. SW let know to call PCU directly as this SW may not be here when the facility makes a decision. states he is coming in to visit in a little while. SW spoke w/physician, she spoke w/Sabra at [facility] and plans to speak w/Rebecca directly to answer any additional quesitons. ROMERO Wolfe Original Note: Social Work SW called [facility]. As per the gear repair supervisor at [facility], Tiana Wu is following today. She states as per Tiana, Rebecca is still reviewing the referral. ISAÍAS let the slumber room attendant know. ROMERO Wolfe
[2021-12-23] MEDS: RisperiDONE 1 MG Tablet PO (09:55)
[2021-12-23] MEDS: Hydroxychloroquine 200 MG Tablet PO (09:55)
[2021-12-23] MEDS: Iron Polysaccharide Complex 150 MG CAPSULE PO (09:56)
--- NOTE | 2021-12-23 10:51 | NURSING ---
Spoke with counseling center regarding transfer. Stated they just spoke to [facility] and the case is being referred to another physician to review. Stated [facility] verbalized that the process may take awhile.
[2021-12-23 11:56] LABS: Bedside Glucose 110 mg/dL (74-106)
--- NOTE | 2021-12-23 14:06 | NURSING ---
This nurse spoke to Sabra from the counseling center. [facility] wants repeat BLE doppler test. Dr Rose notified. Fax results to Sabra [phone]
--- NOTE | 2021-12-23 14:44 | CASEMGMT ---
Addendum entered by Juliana Valenzuela 12/23/21 15:39: Gali from [facility] called and said they can take pt today, they just need the COVID test, and pink slip. They also wanted to make sure pt's spouse was in agreement. SW let Gali know had spoken w/spouse a couple of times and he is in agreement w/pt going. SW let U special education secretary and RN know, RN will do COVID test. in room, SW let him know pt can go to [facility] today. SW also let Dr. Rose know. No further social service needs, pt to [facility] today. ROMERO Wolfe Original Note: Social Work SW received a call from Gali at [facility] asking for a med list to be faxed over. Jamee, special education secretary in [facility], is going to send it over. Pt's Cesar called SW to let SW know he is in the room an gave SW his cell number: [phone]. SW did let him know that SW will be leaving shortly, so to check w/the U staff for any further questions. ROMERO Wolfe
--- NOTE | 2021-12-23 15:08 | PCM.PN.HOSP ---
Subjective Subjective Late entry note?patient was supposed to have been discharged yesterday but apparently could not leave. Follow-up on dysphagia/toxic metabolic encephalopathy/JACOB/severe malnutrition: Patient was seen and examined.? She has had 1 bowel movement the day before. She seems to be tolerating her tube feeds. Objective Data Objective Data Vital Signs: Vital Signs Temp Pulse Resp BP Pulse Ox O2 Del Method 97.9 F 91 18 93/57 L 99 Room Air 12/23/21 11:15 12/23/21 15:00 12/23/21 11:15 12/23/21 11:15 12/23/21 11:15 12/23/21 14:25 Oxygen Delivery Method Room Air Weight: 84.3 kg Body Mass Index (BMI) 29.0 Intake & Output: Intake and Output for Last 24 Hours 12/21/21 12/22/21 12/23/21 23:59 23:59 23:59 Intake Total 1760 / 2200 3450 / 3450 1320 / 1320 Output Total 1250 / 1600 2750 / 2750 1000 / 1000 Balance 510 / 600 700 / 700 320 / 320 Medical Nutrition Assessment Dietitian: Malnutrition Criteria Met Start: 12/04/21 14:18 Freq: Status: Active Protocol: Document 12/22/21 10:20 AG (Rec: 12/22/21 10:20 AG [id number]) Nutrition Malnutrition Evidence of Malnutrition Exists Yes Malnutrition (severe): Chronic Evidenced By Suboptimal Energy Intake ( Severe),Weight Loss (Severe) Clinical Problem Altered GI Function Etiology related to constipation, medication administration Signs/Symptoms as evidenced by diarrhea Status Active Problem Chronic Disease or Condition Related Malnutrition Etiology severe, chronic malnutrition r /t inadequate energy intake d/ t depression Signs/Symptoms as evidenced by 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 Regular pureed diet with thin liquids per CREW SCHEDULER. 2. Via PEG- Jevity 1.5 240mL Jevity 1.5 bolus 5x/day w/ 100mL H2O flush before and after each bolus to provide 1800 calories, 76 g protein, and 1912mL total fluid/day. Lab / Micro Data Result Diagrams: 12/22/21 17:30 12/22/21 06:25 Labs: Laboratory Results - last 24 hr 12/22/21 06:25: Magnesium 2.1 12/22/21 12:30: Crossmatch See Detail 12/22/21 16:31: POC Glucose 153 H 12/22/21 17:30: Hgb 8.2 L, Hct 26.0 L 12/22/21 20:54: POC Glucose 108 H 12/22/21 22:20: S.aureus Protein A PCR NEGATIVE, MRSA (PCR) Negative 12/23/21 06:33: POC Glucose 129 H 12/23/21 11:12: POC Glucose 110 H Micro: Microbiology 12/22/21 10:40 Nasal Secretion SARS-CoV-2 Antigen (Rapid) - Final 12/22/21 05:23 Stool C. difficile DNA Amplification - Final 12/11/21 Unknown Tissue - Other Fungal Smear - Final 12/11/21 Unknown Tissue - Other Gram Stain - Final 12/11/21 Unknown Tissue - Other Wound Culture - Final Staphylococcus aureus Staphylococcus epidermidis Lactobacillus plantarum 12/11/21 Unknown Tissue - Other Anaerobic Culture - Final No anaerobic bacteria isolated. 12/07/21 16:55 Stool Stool Occult Blood (DONNELL) - Final Occult Blood Positive 12/03/21 14:35 Nasal Secretion SARS-CoV-2 Antigen (Rapid) - Final Rhythm Strip Rhythm Strip: Sinus Tach Rate: 108 Ectopy: None Physical Exam Narrative Physical exam: General: Alert, Oriented to self cooperative, appears frail, confused HEENT: Atraumatic Oral: Moist Mucosa Neck: Supple Lungs: Diminished to auscultation Cardiovascular: HS I+II, regular, no murmurs Abdomen: Abdominal binder in place, PEG tube in the epigastric region, bowel Sounds Present, Soft, Non Tender Extremities: No edema Skin: No rashes, No breakdown Neurological: Grossly intact Psych/Mental Status: Appropriate Assessment & Plan Assessment/Plan (1) Toxic metabolic encephalopathy: PLAN: Plan 1. Acute toxic/metabolic encephalopathy, likely secondary to polypharmacy, patient is alert oriented to self This is more likely to be due to acute psych/major depression than a metabolic cause Awaiting discharge to acute psych facility 2. JACOB on CKD stage IIIb secondary to severe dehydration, prerenal/obstructive Creatinine slowly is improving 3. Abnormal renal ultrasound suggestive of mass posterior to bladder Not seen on CT abd/pelvis Outpatient follow-up with urology 4. Thrombocytopenia, HIT antibodies negative; Hem/onc consulted Status post 1 unit of platelet on 12/11/2021 Continue on Xarelto 5.? Anemia, acute on chronic, history of anemia of chronic disease Status post 1 unit of packed RBC in this admission Hemoglobin is 7.2, repeat is 7.3. Will transfuse 1 unit of packed RBC 6. Debility, s/p 2 recent hip surgeries for replacement then revision secondary to recurrent dislocations PT/OT to evaluate and treat 7. Acute left lower extremity DVT, continue on Xarelto 8. History of rheumatoid arthritis, continue home hydroxychloroquine Continue to hold leflunomide until platelet count improvement Tramadol prn 9. Relative hypotension, continue to hold metoprolol 10. Severe depression, continue Duloxetine, Risperdal 11. Severe malnutrition, s/p PEG tube,?continue tube feeds Charges/Coding Visit Charges Inpatient E&M: 99629 Subs Hosp L3
--- NOTE | 2021-12-23 15:14 | PN.HOSP_ITS ---
Subjective Subjective Follow-up on dysphagia/toxic metabolic encephalopathy/JACOB/severe malnutrition: Patient was seen and examined.? No acute events overnight. Awaiting on discharge to acute [facility] facility Objective Data Objective Data Vital Signs: Vital Signs Temp Pulse Resp BP Pulse Ox O2 Del Method 97.9 F 91 18 93/57 L 99 Room Air 12/23/21 11:15 12/23/21 15:00 12/23/21 11:15 12/23/21 11:15 12/23/21 11:15 12/23/21 14:25 Oxygen Delivery Method Room Air Weight: 84.3 kg Body Mass Index (BMI) 29.0 Intake & Output: Intake and Output for Last 24 Hours 12/21/21 12/22/21 12/23/21 23:59 23:59 23:59 Intake Total 1760 / 2200 3450 / 3450 1320 / 1320 Output Total 1250 / 1600 2750 / 2750 1000 / 1000 Balance 510 / 600 700 / 700 320 / 320 Medical Nutrition Assessment Dietitian: Malnutrition Criteria Met Start: 12/04/21 14:18 Freq: Status: Active Protocol: Document 12/22/21 10:20 AG (Rec: 12/22/21 10:20 AG [id number]) Nutrition Malnutrition Evidence of Malnutrition Exists Yes Malnutrition (severe): Chronic Evidenced By Suboptimal Energy Intake ( Severe),Weight Loss (Severe) Clinical Problem Altered GI Function Etiology related to constipation, medication administration Signs/Symptoms as evidenced by diarrhea Status Active Problem Chronic Disease or Condition Related Malnutrition Etiology severe, chronic malnutrition r /t inadequate energy intake d/ t depression Signs/Symptoms as evidenced by 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 Regular pureed diet with thin liquids per TAKE OFF WORKER. 2. Via PEG- Jevity 1.5 240mL Jevity 1.5 bolus 5x/day w/ 100mL H2O flush before and after each bolus to provide 1800 calories, 76 g protein, and 1912mL total fluid/day. Lab / Micro Data Result Diagrams: 12/22/21 17:30 12/22/21 06:25 Labs: Laboratory Results - last 24 hr 12/22/21 06:25: Magnesium 2.1 12/22/21 12:30: Crossmatch See Detail 12/22/21 16:31: POC Glucose 153 H 12/22/21 17:30: Hgb 8.2 L, Hct 26.0 L 12/22/21 20:54: POC Glucose 108 H 12/22/21 22:20: S.aureus Protein A PCR NEGATIVE, MRSA (PCR) Negative 12/23/21 06:33: POC Glucose 129 H 12/23/21 11:12: POC Glucose 110 H Micro: Microbiology 12/22/21 10:40 Nasal Secretion SARS-CoV-2 Antigen (Rapid) - Final 12/22/21 05:23 Stool C. difficile DNA Amplification - Final 12/11/21 Unknown Tissue - Other Fungal Smear - Final 12/11/21 Unknown Tissue - Other Gram Stain - Final 12/11/21 Unknown Tissue - Other Wound Culture - Final Staphylococcus aureus Staphylococcus epidermidis Lactobacillus plantarum 12/11/21 Unknown Tissue - Other Anaerobic Culture - Final No anaerobic bacteria isolated. 12/07/21 16:55 Stool Stool Occult Blood (DONNELL) - Final Occult Blood Positive 12/03/21 14:35 Nasal Secretion SARS-CoV-2 Antigen (Rapid) - Final Rhythm Strip Rhythm Strip: Sinus Tach Rate: 108 Ectopy: None Physical Exam Narrative Physical exam: General: Alert, Oriented to self, cooperative, appears frail, confused HEENT: Atraumatic Oral: Moist Mucosa Neck: Supple Lungs: Diminished to auscultation Cardiovascular: HS I+II, regular, no murmurs Abdomen: Abdominal binder in place, PEG tube in the epigastric region, bowel Sounds Present, Soft, Non Tender Extremities: No edema Skin: No rashes, No breakdown Neurological: Grossly intact Psych/Mental Status: Appropriate Assessment & Plan Assessment/Plan (1) Toxic metabolic encephalopathy: PLAN: Plan 1. Acute toxic/metabolic encephalopathy, likely secondary to polypharmacy, patient is alert oriented to self This is more likely to be due to acute psych/major depression than a metabolic cause Awaiting discharge to acute psych facility 2. JACOB on CKD stage IIIb secondary to severe dehydration, prerenal/obstructive Creatinine slowly is improving 3. Abnormal renal ultrasound suggestive of mass posterior to bladder Not seen on CT abd/pelvis Outpatient follow-up with urology 4. Thrombocytopenia, HIT antibodies negative; Hem/onc consulted Status post 1 unit of platelet on 12/11/2021 Continue on Xarelto 5.? Anemia, acute on chronic, history of anemia of chronic disease Status post 1 unit of packed RBC in this admission Hemoglobin is 7.2, repeat is 7.3. Will transfuse 1 unit of packed RBC 6. Debility, s/p 2 recent hip surgeries for replacement then revision secondary to recurrent dislocations PT/OT to evaluate and treat 7. Acute left lower extremity DVT, continue on Xarelto 8. History of rheumatoid arthritis, continue home hydroxychloroquine Continue to hold leflunomide until platelet count improvement Tramadol prn 9. Relative hypotension, continue to hold metoprolol 10. Severe depression, continue Duloxetine, Risperdal 11. Severe malnutrition, s/p PEG tube,?continue tube feeds Charges/Coding Visit Charges Inpatient E&M: 74809 Subs Hosp L2
--- NOTE | 2021-12-23 16:36 | NURSING ---
Report called to Nurse Vilma mercedes [facility] for pt to be d/c.
== END 2021-12-23 17:07 | DRG 682 ==
LOC: ED 14:09 → PCU 15:01
PROVIDERS: Anesthesiology; Family Medicine; Internal Medicine; Internal Medicine Hematology & Oncology; Surgery; Admitting Provider Internal Medicine; Emergency Provider Emergency Medicine; PCP Family Medicine; Visit Provider Internal Medicine
PROC: 0DJ08ZZ Inspection of Upper Intestinal Tract, Via Natural or Artificial Opening Endoscopic (ICD-10-PCS; CPT 43235; principal; 2021-12-11 11:25)
DX: N17.9 Acute kidney failure, unspecified (principal); G92.8 Other toxic encephalopathy; E43 Unspecified severe protein-calorie malnutrition; D61.818 Other pancytopenia; I82.411 Acute embolism and thrombosis of right femoral vein; E87.20 Acidosis, unspecified; I82.4Z2 Acute embolism and thrombosis of unspecified deep veins of left distal lower extremity; D63.8 Anemia in other chronic diseases classified elsewhere; E83.39 Other disorders of phosphorus metabolism; D69.6 Thrombocytopenia, unspecified; E88.89 Other specified metabolic disorders; E11.40 Type 2 diabetes mellitus with diabetic neuropathy, unspecified; N18.31 Chronic kidney disease, stage 3a; E11.22 Type 2 diabetes mellitus with diabetic chronic kidney disease; L89.152 Pressure ulcer of sacral region, stage 2; N18.32 Chronic kidney disease, stage 3b; Z93.1 Gastrostomy status; M06.9 Rheumatoid arthritis, unspecified; E86.0 Dehydration; E87.6 Hypokalemia; E80.6 Other disorders of bilirubin metabolism; I12.9 Hypertensive chronic kidney disease with stage 1 through stage 4 chronic kidney disease, or unspecified chronic kidney disease; E83.42 Hypomagnesemia; K20.80 Other esophagitis without bleeding; E87.5 Hyperkalemia; I25.10 Atherosclerotic heart disease of native coronary artery without angina pectoris; E16.2 Hypoglycemia, unspecified; R19.7 Diarrhea, unspecified; I95.9 Hypotension, unspecified; N13.2 Hydronephrosis with renal and ureteral calculous obstruction; F32.9 Major depressive disorder, single episode, unspecified; T45.0X5A Adverse effect of antiallergic and antiemetic drugs, initial encounter; R41.0 Disorientation, unspecified; R94.31 Abnormal electrocardiogram [ECG] [EKG]; R62.7 Adult failure to thrive; R13.10 Dysphagia, unspecified; Z23 Encounter for immunization; Z20.822 Contact with and (suspected) exposure to COVID-19; Z96.653 Presence of artificial knee joint, bilateral; Z68.25 Body mass index [BMI] 25.0-25.9, adult
CPT/HCPCS: 36415; 36569; 36600; 71045; 74176; 76770; 80048; 80053; 81001; 82274; 82570; 82607; 82728; 82803; 82962; 83036; 83540; 83550; 83615; 83735; 84100; 84300; 84443; 84484; 85014; 85018; 85025; 85610; 85730; 86022; 86644; 86850; 86900; 86901; 86920; 86922; 86965; 87070; 87075; 87077; 87102; 87176; 87186; 87205; 87206; 87426; 87493; 87640; 87811; 92526; 92610; 93005; 93306; 93970; 94762; 97110; 97162; 97166; 97530; 97535; 97802; 97803; 99285; G0008; J7030; J7040; J7050; J7120; P9016; P9035; P9612; 90686; A4216; J0583; J1940; J2405; J3490; J7799